=== PATIENT | male | born 1960 | race Caucasian/White ===

== ENCOUNTER 2022-10-21 19:48 | Emergency (ER) | payer OTHER, SELFPAY ==
--- NOTE | 2022-10-21 | ECG_ITS ---
Test Reason : MEDICAL CLEARENCE Blood Pressure : / mmHG Vent. Rate : 090 BPM Atrial Rate : 090 BPM P-R Int : 198 ms QRS Dur : 094 ms QT Int : 354 ms P-R-T Axes : 053 -27 016 degrees QTc Int : 433 ms Normal sinus rhythm Normal ECG No previous ECGs available Referred By: Generic ED Physician Electronically Signed By:Eric Sykes
--- NOTE | ~2022-10-21 | XR_ITS ---
EXAMINATION: XR CHEST CLINICAL INFORMATION: Rib pain. COMPARISON: None available. TECHNIQUE: Frontal view of the chest was obtained. 9:33 PM FINDINGS: No significant abnormality is noted involving the heart, lungs, mediastinum, bony thorax or soft tissues. XR/XR chest 1V IMPRESSION: Unremarkable examination.
[2022-10-21 20:12] VITALS: BP 134/79; BP 160/90; PULSE 90; RESP 16; TEMP 37.7; O2SAT 91; O2SAT 97; BMI 31.3
[2022-10-21 21:05] LABS: MANUAL DIFF FLAG NO
[2022-10-21 21:06] LABS: Basophils Absolute Auto 0.1 X10*3/uL (0.0-0.2); Eosinophils Absolute Auto 0.1 X10*3/uL (0.0-0.4); Eosinophils Percent Auto 0.5 % (0-4); Imm Gran Abs Auto 0.04 X10*3/uL (0.00-0.03); Imm Gran Pct Auto 0.3 % (0.0-0.4); Lymphocytes Absolute Auto 2.8 X10*3/uL (1.2-4.9); Mean Corpuscular HGB Conc 34.7 g/dl (31.0-36.0); Mean Corpuscular Hemoglobin 31.3 pg (27.0-33.0); Mean Corpuscular Volume 90.2 fL (80.0-98.0); Mean Platelet Volume 9.9 fL (9.4-12.4); Monocytes Absolute Auto 0.6 X10*3/uL (0.1-1.2); Monocytes Percent Auto 5.2 % (2-11); Neutrophils Absolute Auto 7.9 x10*3/uL (2.0-8.3); Platelet Count 226 X10*3/uL (160-400); Red Blood Count 5.43 X10*6/uL (4.60-5.80); Red Cell Distribution Width 13.5 % (11.0-16.0); White Blood Count 11.4 X10*3/uL (4.8-10.8)
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
[2022-10-21 21:34] LABS: Ethanol 242 mg/dL
--- NOTE | 2022-10-21 21:36 | PC.NURSE ---
pt c/o of pain with urination, UA obtained
[2022-10-21 21:39] LABS: Alanine Aminotransferase 23 U/L (0-40); Albumin Level 4.5 g/dL (3.5-5.0); Alkaline Phosphatase 61 U/L (39-117); Anion Gap 20 (12-20); Aspartate Amino Transferase 34 U/L (5-37); Bilirubin Total 0.4 mg/dL (0.0-1.0); Blood Urea Nitrogen 9 mg/dL (9-16); Calcium 9.2 mg/dL (8.4-10.2); Carbon Dioxide 19 mmol/L (22-29); Chloride 106 mmol/L (96-108); Creatinine Clr Calc Pharmacy 104.1; Estimated Glomerular Filt Rate > 60; Glucose Random 105 mg/dL (60-115); Potassium 4.1 mmol/L (3.3-5.1); Sodium 141 mmol/L (135-145)
[2022-10-21 21:57] LABS: Appearance Urine Clear; Color Urine Yellow; Glucose Urine UA Negative (Negative); Leukocyte Esterase Urine Negative (Negative); Nitrite Urine Negative (Negative); UMIC TRIGGER UACC YES; Urine Blood Moderate (2+) (Negative); Urine Ketones Negative (Negative); Urine Protein 100 (2+) mg/dL (Neg-Trace)
[2022-10-21 22:10] LABS: Amphetamine Screen Urine Not Detected (Not Detect); Barbiturates, Urine Not Detected (Not Detect); Benzodiazepines Screen Urine Not Detected (Not Detect); Cannabinoid Screen Urine POSITIVE (Not Detect); Cocaine Screen Urine POSITIVE (Not Detect); Fentanyl, urine Not Detected (Not Detect); Opiate Screen Urine Not Detected (Not Detect); Phencyclidine Screen Urine Not Detected (Not Detect)
[2022-10-21 22:31] LABS: Bacteria Urine None Seen (None Seen); Hyaline Casts Urine 0-2 /LPF (0-2); RBC Urine 0-2 /HPF (0-2); Squamous Epithelial Cell Urine 0-2 /HPF (0-2); WBC Urine 0-5 /HPF (0-5)
--- NOTE | 2022-10-21 23:26 | PC.NURSE ---
Received report from off going RN. Pt is a 62 y/o male, calm and cooperative with staff. Arousable with verbal stimuli.
[2022-10-22] MEDS: chlordiazePOXIDE HCl 25 MG CAPSULE 50 MG PO ×3 (02:25→08:24)
--- NOTE | 2022-10-22 03:00 | PC.NURSE ---
At 0200 hours, pt observed sitting upright at edge of bed reporting that he wasn't feeling well, c/o nausea, headache, and tremors, denies auditory or visual hallucinations. Updated CIWA score completed and provider notified. Pt was then given medication. Following medication administration, pt laid down in bed and appears more comfortable now. Will continue to monitor for safety.
--- NOTE | 2022-10-22 04:02 | PC.NURSE ---
Pt is arousable with verbal stimuli and asked to use the bathroom. Pt observed walking with a steady gait to the bathroom and back. Denies any wants or needs at this time. Will continue to monitor. Reports feeling better after medication.
[2022-10-22 06:47] VITALS: BP 157/93; PULSE 103; RESP 18; TEMP 37.6; O2SAT 93
--- NOTE | 2022-10-22 07:48 | PC.NURSE ---
Alert and oriented. Patient stating he would like to go home. Reports that he was very drunk and denies SI/HI. States takes suboxone at home and has not taken it for the last few days. States still has some left sided rib pain but that it is better than last night. Reports takes many meds at home but is unable to recall the names and doses of medications.
--- NOTE | 2022-10-22 08:27 | PC.NURSE ---
Seen by provider, patient to be discharged, care team to set up ride home. Medicated per mar. Patient continues to deny SI/HI
--- NOTE | 2022-10-22 08:49 | PC.NURSE ---
Discharge plan reviewed with patient who verbalized understanding
== END 2022-10-22 08:50 | disposition home or self-care (01) ==
PROVIDERS: Emergency Provider Internal Medicine
DX: R45.851 Suicidal ideations (principal); F10.220 Alcohol dependence with intoxication, uncomplicated; Y90.8 Blood alcohol level of 240 mg/100 ml or more; R07.81 Pleurodynia
CPT/HCPCS: 36415; 71045; 80053; 80307; 81001; 85025; 93005; 99285

== ENCOUNTER → 2022-10-21 21:15 | Outpatient (BNV) | payer OTHER, SELFPAY | PROVIDERS: Emergency Provider Internal Medicine; Visit Provider Internal Medicine Cardiovascular Disease | DX: Z51.81 Encounter for therapeutic drug level monitoring (principal) | CPT/HCPCS: 93010 ==

== ENCOUNTER 2022-11-21 14:04 | Inpatient (IN) | payer OTHER, SELFPAY ==
--- NOTE | ~2022-11-21 | CT_ITS ---
EXAMINATION: CT HEAD WITHOUT CONTRAST (STROKE PROTOCOL) CLINICAL INFORMATION: Stroke protocol. Facial droop COMPARISON: None available. TECHNIQUE: Contiguous axial imaging was performed from the skull base to vertex without intravenous administration of contrast. This CT examination was performed using dose optimization techniques as appropriate, variously including the following: *Automated exposure control *Adjustment of mA and/or kV according to patient size (this includes techniques or standardized protocols for targeted exams where dose is matched to indication/reason for exam; i.e. extremities or head) *Use of iterative reconstruction technique DLP: 751 mGy-cm FINDINGS: The ventricles and sulci are normal in size and configuration. No acute hemorrhage, mass effect or shift is evident. Miranda-white differentiation is preserved. In the posterior fossa the brainstem, cerebellum and fourth ventricle are unremarkable. The orbits, calvarium, paranasal sinuses and mastoid air cells image normally. CT/CT head for stroke IMPRESSION: No acute hemorrhage, mass effect or shift. No acute intracranial pathology. This critical result was discussed with Tala Figueroa at 12:26 PM hours on 11/22/2022. It was ascertained that the content and urgency of the report was understood at the time of direct communication.
--- NOTE | 2022-11-21 15:01 | ED_ITS ---
HPI - General Adult General Chief complaint: ETOH/Substance Use Stated complaint: detox Time Seen by Provider: 11/21/22 15:21 Source: patient and family (Sister) Mode of arrival: ambulatory History of Present Illness HPI narrative: 62-year-old male who presents, [facility], and [facility] detox, reports that he drinks a 5th of liquor a day, last drink was approximately an hour prior to arrival and he reports suicidal ideation and states he does have a history of prior attempts. He also endorses that he has a history of severe alcohol withdrawal with seizures. The sister who is at bedside said that the [facility] would not accept him for detox due to his CPAP machine. Related Data Allergies Allergy/AdvReac Type Severity Reaction Status Date / Time No Known Allergies Allergy Verified 11/21/22 15:02 Review of Systems Review of Systems: Pertinent positives and negatives as stated in HPI [facility] Past Medical History Source: nursing notes reviewed Social History Social History Alcohol intake: current Alcohol intake frequency: 3 or more drinks per day Alcohol type: hard liquor Smoked in Last 30 Days: No Use of substances other than those prescribed or required for medical reasons: No Substance Use Type: Opiates Advance Directives: No Advance Directives Information Provided: No Physical Exam ED Vital Signs: Vital Signs - 24 hr 11/21/22 15:03 Temperature 97.1 F Pulse Rate 87 Respiratory Rate 16 Blood Pressure 128/89 Pulse Oximetry 92 Oxygen Delivery Method Room Air BMI result Body Mass Index 33.7 VITAL SIGNS: Reviewed. GENERAL: Well developed, well nourished, in no acute distress. HEAD: Normocephalic/atraumatic EYES: PERRLA, EOMI EARS: Ext canals without abnormality NOSE: Nares patent bilateral OROPHARYNX: no oral lesions noted, posterior pharynx clear NECK: Supple, no adenopathy LUNGS: Normal breath sounds. No adventitious sounds or accessory muscle use. SpO2<92> CARDIOVASCULAR: Regular rate and rhythm without noted murmurs, no JVD or lower extremity edema. ABDOMEN: Soft, non-tender, non-distended with bowel sounds. MUSCULOSKELETAL: No tenderness, deformities, or effusions noted on gross inspection. EXTREMITIES: No cyanosis, clubbing or edema. SKIN: Inspection of the skin reveals no rashes NEUROLOGIC: Alert and oriented x 4. Strength and sensation to light touch were grossly intact x 4, cranial nerves 2-12 are grossly intact. Course Course Course Narrative: This is a rapid medical exam. Deferred additional HPI ROS, PE to primary provider. 62 yo male with history of PTSD, depression, anxiety, DM, HTN here seeking detox for alcohol, drinks daily, drinks 1/5 of bourbon per day Last drink 30 minutes NO additional substance use. +SI in triage, no plan. Will obtain labs, MORGAN, EKG, COVID screen VSS Medications Administered Discontinued Medications Generic Name Dose Route Start Last Admin Trade Name Freq PRN Reason Stop Dose Admin Chlordiazepoxide HCl 25 mg 11/21/22 16:41 11/21/22 16:45 Chlordiazepoxide Hcl 25 Mg Capsule PO 11/21/22 16:42 25 mg ONCE ONE Administration Phenobarbital Sodium 350.4 mg 11/21/22 17:00 11/21/22 17:20 Phenobarbital Sodium 130 Mg/Ml Im Once IM 11/21/22 17:01 350.4 mg ONCE ONE Administration Protocol Medical Decision Making Medical Decision Making [facility] Narrative: 62-year-old male with history and clinical presentation, DDX: Alcohol abuse, prior suicide attempt history, severe alcohol withdrawal symptoms in his history. Will obtain lab work, EKG and toxicology for clearance, but suspect that patient may need to be admitted for alcohol withdrawal. I reviewed all investigations and there is no leukocytosis or left shift, no anemia or thrombocytopenia. Chemistry indices are grossly within normal limits as there is no JOSELITO, electrolyte or liver enzyme abnormalities. Toxicology demonstrates undetectable salicylate/acetaminophen and alcohol level -249. COVID-19 negative. Patient has been started on a phenobarb protocol but initially received 25 mg of Librium. Patient is on a one-to-one and is under Section 12. 1907: I discussed case with inpatient hospitalist who accepts admission. Differential Diagnosis Differential Diagnoses: The differential diagnosis associated with the presentation includes Please see the discussion above Admission/Observation Consideration of admission/observation: Escalation of care including admissio n/observation considered Please see the discussion above Consult Healthcare Provider Management of the patient was discussed with: Hospitalist Please see the discussion above Lab Data [facility] Lab Attestation statement: I reviewed the patient's lab results. Please see the discussion above 11/21/22 15:59 11/21/22 15:59 Labs: Lab Results 11/21/22 11/21/22 11/21/22 Range/Units 15:59 15:59 15:59 WBC 6.7 (4.8-10.8) X10*3/uL RBC 4.54 L (4.60-5.80) X10*6/uL Hgb 14.1 (14.0-18.0) g/dl Hct 41.6 L (42.0-52.0) % MCV 91.6 (80.0-98.0) fL MCH 31.1 (27.0-33.0) pg MCHC 33.9 (31.0-36.0) g/dl RDW 13.6 (11.0-16.0) % Plt Count 162 D (160-400) X10*3/uL MPV 10.9 (9.4-12.4) fL Immature Gran % (Auto) 0.1 (0.0-0.4) % Neut % (Auto) 39.0 L (45-73) % Lymph % (Auto) 47.5 H (20-40) % [place] % (Auto) 9.3 (2-11) % Eos % (Auto) 2.8 (0-4) % Baso % (Auto) 1.3 (0-2) % Lymph # (Auto) 3.2 (1.2-4.9) X10*3/uL [place] # (Auto) 0.6 (0.1-1.2) X10*3/uL Eos # (Auto) 0.2 (0.0-0.4) X10*3/uL Baso # (Auto) 0.1 (0.0-0.2) X10*3/uL Abs Immat Gran (auto) 0.01 (0.00-0.03) X10*3/uL Absolute Neuts (auto) 2.6 (2.0-8.3) x10*3/uL Absolute Nucleated RBC 0.000 (0.0-0.012) X10*3/uL Nucleated RBC % (auto) 0.0 (0.0-0.2) /100WBC Sodium 145 (135-145) mmol/L Potassium 4.3 (3.3-5.1) mmol/L Chloride 104 (96-108) mmol/L Carbon Dioxide 30 H (22-29) mmol/L Anion Gap 15 (12-20) BUN 11 (9-16) mg/dL Creatinine 0.80 (0.5-1.4) mg/dL Estim Creat Clear Calc 114.1 Estimated GFR > 60 Random Glucose 106 (60-115) mg/dL Calcium 9.1 (8.4-10.2) mg/dL Magnesium 1.6 (1.6-2.6) mg/dL Total Bilirubin 0.3 (0.0-1.0) mg/dL Direct Bilirubin 0.1 (0.0-0.5) mg/dL AST 40 H (5-37) U/L ALT 34 (0-40) U/L Alkaline Phosphatase 82 (39-117) U/L Total Protein 6.7 (6.5-8.0) g/dL Albumin 3.9 (3.5-5.0) g/dL Urine Color Urine Appearance Urine pH (5.0-9.0) Ur Specific [place] (1.005-1.025) Urine Protein (Neg-Trace) mg/dL Urine Glucose (UA) (Negative) mg/dL Urine Ketones (Negative) mg/dL Urine Blood (Negative) Urine Nitrite (Negative) Ur Leukocyte Esterase (Negative) Salicylates (15-30) mg/dL Urine Opiates Screen (Not Detect) Urine Fentanyl Screen (Not Detect) Acetaminophen (<30) mcg/mL Ur Barbiturates Screen (Not Detect) Ur Phencyclidine Scrn (Not Detect) Ur Amphetamines Screen (Not Detect) U Benzodiazepines Scrn (Not Detect) Urine Cocaine Screen (Not Detect) U Marijuana (THC) Screen (Not Detect) Ethyl Alcohol mg/dL COVID-19 (WILLIAM) Negative (Negative) COVID-19 Clin Com See Note 11/21/22 11/21/22 11/21/22 Range/Units 15:59 15:59 17:27 WBC (4.8-10.8) X10*3/uL RBC (4.60-5.80) X10*6/uL Hgb (14.0-18.0) g/dl Hct (42.0-52.0) % MCV (80.0-98.0) fL MCH (27.0-33.0) pg MCHC (31.0-36.0) g/dl RDW (11.0-16.0) % Plt Count (160-400) X10*3/uL MPV (9.4-12.4) fL Immature Gran % (Auto) (0.0-0.4) % Neut % (Auto) (45-73) % Lymph % (Auto) (20-40) % [place] % (Auto) (2-11) % Eos % (Auto) (0-4) % Baso % (Auto) (0-2) % Lymph # (Auto) (1.2-4.9) X10*3/uL [place] # (Auto) (0.1-1.2) X10*3/uL Eos # (Auto) (0.0-0.4) X10*3/uL Baso # (Auto) (0.0-0.2) X10*3/uL Abs Immat Gran (auto) (0.00-0.03) X10*3/uL Absolute Neuts (auto) (2.0-8.3) x10*3/uL Absolute Nucleated RBC (0.0-0.012) X10*3/uL Nucleated RBC % (auto) (0.0-0.2) /100WBC Sodium (135-145) mmol/L Potassium (3.3-5.1) mmol/L Chloride (96-108) mmol/L Carbon Dioxide (22-29) mmol/L Anion Gap (12-20) BUN (9-16) mg/dL Creatinine (0.5-1.4) mg/dL Estim Creat Clear Calc Estimated GFR Random Glucose (60-115) mg/dL Calcium (8.4-10.2) mg/dL Magnesium (1.6-2.6) mg/dL Total Bilirubin (0.0-1.0) mg/dL Direct Bilirubin (0.0-0.5) mg/dL AST (5-37) U/L ALT (0-40) U/L Alkaline Phosphatase (39-117) U/L Total Protein (6.5-8.0) g/dL Albumin (3.5-5.0) g/dL Urine Color Yellow Urine Appearance Clear Urine pH 6.5 (5.0-9.0) Ur Specific [place] 1.010 (1.005-1.025) Urine Protein Trace (Neg-Trace) mg/dL Urine Glucose (UA) Negative (Negative) mg/dL Urine Ketones Negative (Negative) mg/dL Urine Blood Negative (Negative) Urine Nitrite Negative (Negative) Ur Leukocyte Esterase Negative (Negative) Salicylates < 5.0 L (15-30) mg/dL Urine Opiates Screen (Not Detect) Urine Fentanyl Screen (Not Detect) Acetaminophen < 17 (<30) mcg/mL Ur Barbiturates Screen (Not Detect) Ur Phencyclidine Scrn (Not Detect) Ur Amphetamines Screen (Not Detect) U Benzodiazepines Scrn (Not Detect) Urine Cocaine Screen (Not Detect) U Marijuana (THC) Screen (Not Detect) Ethyl Alcohol 249 mg/dL COVID-19 (WILLIAM) (Negative) COVID-19 Clin Com 11/21/22 Range/Units 17:27 WBC (4.8-10.8) X10*3/uL RBC (4.60-5.80) X10*6/uL Hgb (14.0-18.0) g/dl Hct (42.0-52.0) % MCV (80.0-98.0) fL MCH (27.0-33.0) pg MCHC (31.0-36.0) g/dl RDW (11.0-16.0) % Plt Count (160-400) X10*3/uL MPV (9.4-12.4) fL Immature Gran % (Auto) (0.0-0.4) % Neut % (Auto) (45-73) % Lymph % (Auto) (20-40) % [place] % (Auto) (2-11) % Eos % (Auto) (0-4) % Baso % (Auto) (0-2) % Lymph # (Auto) (1.2-4.9) X10*3/uL [place] # (Auto) (0.1-1.2) X10*3/uL Eos # (Auto) (0.0-0.4) X10*3/uL Baso # (Auto) (0.0-0.2) X10*3/uL Abs Immat Gran (auto) (0.00-0.03) X10*3/uL Absolute Neuts (auto) (2.0-8.3) x10*3/uL Absolute Nucleated RBC (0.0-0.012) X10*3/uL Nucleated RBC % (auto) (0.0-0.2) /100WBC Sodium (135-145) mmol/L Potassium (3.3-5.1) mmol/L Chloride (96-108) mmol/L Carbon Dioxide (22-29) mmol/L Anion Gap (12-20) BUN (9-16) mg/dL Creatinine (0.5-1.4) mg/dL Estim Creat Clear Calc Estimated GFR Random Glucose (60-115) mg/dL Calcium (8.4-10.2) mg/dL Magnesium (1.6-2.6) mg/dL Total Bilirubin (0.0-1.0) mg/dL Direct Bilirubin (0.0-0.5) mg/dL AST (5-37) U/L ALT (0-40) U/L Alkaline Phosphatase (39-117) U/L Total Protein (6.5-8.0) g/dL Albumin (3.5-5.0) g/dL Urine Color Urine Appearance Urine pH (5.0-9.0) Ur Specific [place] (1.005-1.025) Urine Protein (Neg-Trace) mg/dL Urine Glucose (UA) (Negative) mg/dL Urine Ketones (Negative) mg/dL Urine Blood (Negative) Urine Nitrite (Negative) Ur Leukocyte Esterase (Negative) Salicylates (15-30) mg/dL Urine Opiates Screen Not Detected (Not Detect) Urine Fentanyl Screen Not Detected (Not Detect) Acetaminophen (<30) mcg/mL Ur Barbiturates Screen Not Detected (Not Detect) Ur Phencyclidine Scrn Not Detected (Not Detect) Ur Amphetamines Screen Not Detected (Not Detect) U Benzodiazepines Scrn Not Detected (Not Detect) Urine Cocaine Screen Not Detected (Not Detect) U Marijuana (THC) Screen POSITIVE H (Not Detect) Ethyl Alcohol mg/dL COVID-19 (WILLIAM) (Negative) COVID-19 Clin Com Independent Interpretation I performed an independent interpretation of an: EKG Interpretation: Normal sinus rhythm, HR-77, no STEMI, KS/QRS/QTC is within normal limits. External Record Review External record reviewed: Office record, Outpatient record, Prior outpatient labs and Prior outpatient radiology Chronic Conditions Patient?s care impacted by: Diabetes and Hypertension Critical Care Time Critical Care Time Critical Care Time: Yes Total Critical Care Time: 30 Attestation: I personally attest to this time spent taking care of the patient. Discharge Plan Discharge Clinical Impression: Alcoholic intoxication, Alcohol abuse, Alcohol withdrawal, Suicidal ideation Patient Disposition: Admitted As Inpatient
[2022-11-21 15:03] VITALS: BP 128/89; PULSE 87; RESP 16; TEMP 36.2; O2SAT 92; BMI 33.7
--- NOTE | 2022-11-21 15:05 | ECG_ITS ---
Test Reason : DETOX Blood Pressure : / mmHG Vent. Rate : 077 BPM Atrial Rate : 077 BPM P-R Int : 180 ms QRS Dur : 100 ms QT Int : 380 ms P-R-T Axes : 050 -22 021 degrees QTc Int : 430 ms Normal sinus rhythm Normal ECG When compared with ECG of 21-OCT-2022 21:15, No significant change was found Referred By: Karla Huang Electronically Signed By:JANN HAMPTON
[2022-11-21 16:09] LABS: MANUAL DIFF FLAG NO
[2022-11-21 16:12] LABS: Basophils Absolute Auto 0.1 X10*3/uL (0.0-0.2); Basophils Percent Auto 1.3 % (0-2); Eosinophils Absolute Auto 0.2 X10*3/uL (0.0-0.4); Eosinophils Percent Auto 2.8 % (0-4); Hematocrit 41.6 % (42.0-52.0); Hemoglobin 14.1 g/dl (14.0-18.0); Imm Gran Abs Auto 0.01 X10*3/uL (0.00-0.03); Imm Gran Pct Auto 0.1 % (0.0-0.4); Lymphocytes Absolute Auto 3.2 X10*3/uL (1.2-4.9); Lymphocytes Percent Auto 47.5 % (20-40); Mean Corpuscular HGB Conc 33.9 g/dl (31.0-36.0); Mean Corpuscular Hemoglobin 31.1 pg (27.0-33.0); Mean Corpuscular Volume 91.6 fL (80.0-98.0); Mean Platelet Volume 10.9 fL (9.4-12.4); Monocytes Absolute Auto 0.6 X10*3/uL (0.1-1.2); Monocytes Percent Auto 9.3 % (2-11); Neutrophils Absolute Auto 2.6 x10*3/uL (2.0-8.3); Platelet Count 162 X10*3/uL (160-400); Red Blood Count 4.54 X10*6/uL (4.60-5.80); Red Cell Distribution Width 13.6 % (11.0-16.0); White Blood Count 6.7 X10*3/uL (4.8-10.8)
[2022-11-21 16:31] LABS: COVID-19 Test Negative (Negative); IDNOW Serial# BCCEAD1C
[2022-11-21 16:45] LABS: Ethanol 249 mg/dL
[2022-11-21] MEDS: chlordiazePOXIDE HCl 25 MG CAPSULE PO (16:45)
[2022-11-21 16:47] LABS: Acetaminophen LAB < 17 mcg/mL (<30); Alanine Aminotransferase 34 U/L (0-40); Albumin Level 3.9 g/dL (3.5-5.0); Alkaline Phosphatase 82 U/L (39-117); Anion Gap 15 (12-20); Aspartate Amino Transferase 40 U/L (5-37); Bilirubin Direct 0.1 mg/dL (0.0-0.5); Bilirubin Total 0.3 mg/dL (0.0-1.0); Blood Urea Nitrogen 11 mg/dL (9-16); Calcium 9.1 mg/dL (8.4-10.2); Carbon Dioxide 30 mmol/L (22-29); Chloride 104 mmol/L (96-108); Creatinine Clr Calc Pharmacy 114.1; Estimated Glomerular Filt Rate > 60; Glucose Random 106 mg/dL (60-115); Magnesium 1.6 mg/dL (1.6-2.6); Potassium 4.3 mmol/L (3.3-5.1); Salicylate < 5.0 mg/dL (15-30); Sodium 145 mmol/L (135-145); Total Protein 6.7 g/dL (6.5-8.0)
[2022-11-21] MEDS: PHENobarbitaL sodium 130 MG/ML IM ONCE 350.4 MG IM (17:20)
[2022-11-21 17:34] LABS: Appearance Urine Clear; Color Urine Yellow; Glucose Urine UA Negative (Negative); Leukocyte Esterase Urine Negative (Negative); Nitrite Urine Negative (Negative); PH 6.5 (5.0-9.0); Urine Blood Negative (Negative); Urine Ketones Negative (Negative); Urine Protein Trace mg/dL (Neg-Trace)
[2022-11-21 17:46] LABS: Amphetamine Screen Urine Not Detected (Not Detect); Barbiturates, Urine Not Detected (Not Detect); Benzodiazepines Screen Urine Not Detected (Not Detect); Cannabinoid Screen Urine POSITIVE (Not Detect); Cocaine Screen Urine Not Detected (Not Detect); Fentanyl, urine Not Detected (Not Detect); Opiate Screen Urine Not Detected (Not Detect); Phencyclidine Screen Urine Not Detected (Not Detect)
--- NOTE | 2022-11-21 20:02 | P.HPHOSP_ITS ---
History of Present Illness Date of Service: 11/21/22 Chief Complaint: Alcohol withdrawal 62-year-old male past medical history of hypertension, diabetes, hyperlipidemia, history of opioid use disorder on Suboxone, depression anxiety, comes into the hospital with complaints of withdrawals from alcohol. Patient re ports that he drinks 5th of bourbon daily, and is interested in detoxing, he stop drinking right before coming to the hospital, but is already withdrawing. Has history of severe withdrawals including seizures. Denies any chest pain, no shortness of breath, no abdominal pain nausea vomiting, no diarrhea constipation, no urinary symptoms and no lower extremity edema. On arrival to the ED patient was already noted to be withdrawn, patient started on phenobarb protocol and will be admitted for further management patient did endorse suicidal ideation to the ED physician, but is now feeling more calm, and states that he has no intention or plan to hurt himself or others On arrival to the ED hemodynamically stable Labs reviewed, unremarkable, positive for marijuana patient will be admitted for further management Review of Systems Review of Systems: Yes all other systems are reviewed and are negative [facility] Medical History (Updated 11/21/22 @ 23:51 by Puja Keita MD) Depression with anxiety Diabetes Hyperlipidemia Hypertension Social History Alcohol intake: current Alcohol intake frequency: 3 or more drinks per day Alcohol type: hard liquor Patient Tobacco Use Status: Former Tobacco user Smoked in Last 30 Days: No Use of substances other than those prescribed or required for medical reasons: No Substance Use Type: Opiates Advance Directives: No Advance Directives Information Provided: No Meds Allergies Allergy/AdvReac Type Severity Reaction Status Date / Time No Known Allergies Allergy Verified 11/21/22 15:02 Active Medications: Current Medications Acetaminophen (Acetaminophen 325 Mg Tablet) 650 mg PO Q6H PRN PRN Reason: Pain, Mild (Pain Scale 1-3) Docusate Sodium (Docusate Sodium 100 Mg Capsule) 100 mg PO DAILY PRN PRN Reason: Constipation Folic Acid (Folic Acid 1 Mg Tablet) 1 mg PO DAILY ANA Ondansetron HCl (Ondansetron Hcl 4 Mg/2 Ml Vial) 4 mg IVPUSH Q8H PRN PRN Reason: Nausea and Vomiting Pharmacy Consult (Consult Rx Etoh Phenob Im/Po) 1 each MISCELLANE ONCE PRN; Protocol PRN Reason: Consult order Phenobarbital (Phenobarbital 15 Mg Tablet) 45 mg PO BID [facility]; Protocol Stop: 11/23/22 21:01 Phenobarbital (Phenobarbital 30 Mg Tablet) 30 mg PO BID [facility]; Protocol Stop: 11/25/22 21:01 Phenobarbital (Phenobarbital 15 Mg Tablet) 15 mg PO DAILY [facility]; Protocol Stop: 11/27/22 09:01 Phenobarbital Sodium (Phenobarbital Sodium 130 Mg/Ml Vial Im Q3hx2) 262.8 mg IM Q3H ANA; Protocol Stop: 11/21/22 23:01 Sodium Chloride (0.9 % Sodium Chloride Flush 3 Ml Syringe) [facility] Thiamine HCl (Thiamine Hcl 100 Mg Tablet) 100 mg PO DAILY [facility] Home Medications Medication Instructions Recorded Confirmed Last Taken Type acyclovir 400 mg tablet 400 mg PO BID 11/21/22 11/21/22 11/21/22 History atorvastatin 20 mg tablet 10 mg PO BEDTIME 11/21/22 11/21/22 11/20/22 History buprenorphine 2 mg-naloxone 0.5 mg 1 film buccal DAILY 11/21/22 11/21/22 11/21/22 History sublingual film (Suboxone) buprenorphine 8 mg-naloxone 2 mg 2 film buccal DAILY 11/21/22 11/21/22 11/21/22 History sublingual film (Suboxone) buspirone 5 mg tablet 5 mg PO BID 11/21/22 11/21/22 11/21/22 History duloxetine 60 mg capsule,delayed 60 mg PO DAILY 11/21/22 11/21/22 11/21/22 H istory release sprinkle finasteride 5 mg tablet 5 mg PO DAILY 11/21/22 11/21/22 11/21/22 History gabapentin 400 mg capsule 1,200 mg PO TID 11/21/22 11/21/22 11/21/22 History hydroxyzine HCl 25 mg tablet 25 mg PO BEDTIME 11/21/22 11/21/22 11/21/22 History lisinopril 2.5 mg tablet 2.5 mg PO DAILY 11/21/22 11/21/22 11/21/22 History melatonin 5 mg tablet 10 mg PO BEDTIME 11/21/22 11/21/22 11/20/22 History metformin 1,000 mg tablet 1,000 mg PO DAILY 11/21/22 11/21/22 11/21/22 History metoprolol succinate 25 mg capsule 25 mg PO BEDTIME 11/21/22 11/21/22 11/20/22 History sprinkle, ext. release 24 hr multivitamin 1 tab PO DAILY 11/21/22 11/21/22 11/21/22 History polyethylene glycol 3350 17 17 g PO DAILY 11/21/22 11/21/22 11/21/22 History gram/dose oral powder (Miralax) sennosides 8.6 mg-docusate sodium 2 tab-cap PO BEDTIME 11/21/22 11/21/22 11/20/22 History 50 mg tablet tamsulosin 0.4 mg capsule 0.4 mg PO BID 11/21/22 11/21/22 11/21/22 History trazodone 100 mg tablet 300 mg PO BEDTIME 11/21/22 11/21/22 11/20/22 History Physical Exam Vital Signs and Narrative: Vital Signs: Last Vital Signs Temp 97.1 F 11/21/22 15:03 Pulse 87 11/21/22 15:03 Resp 16 11/21/22 15:03 BP 128/89 11/21/22 15:03 Pulse Ox 92 11/21/22 15:03 O2 Del Method Room Air 11/21/22 15:03 BMI result Body Mass Index 33.7 Const: Other: appears anxious, jittery, nervous appearing General: cooperative and no acute distress Orientation/consciousness: susan ent oriented x3 Eyes: General: appearance normal, both eyes and all related structures Resp: Effort & Inspection: normal respiratory effort Auscultation: clear to auscultation bilaterally Cardio: Rate: regular rate Rhythm: regular rhythm GI: Palpation (GI): Soft to palpation Auscultation: normal bowel sounds Skin: General skin exam: no rashes or lesions noted Neuro: Other: asterixis present no neurological deficit General: patient oriented x3 Cognition (Neuro): normal cognition Extrem: General: Yes normal to inspection and Yes no pedal edema Results Labs 11/21/22 15:59 11/21/22 15:59 Labs: Laboratory Results - last 24 hr 11/21/22 11/21/22 11/21/22 15:59 15:59 15:59 MCV 91.6 MCH 31.1 MCHC 33.9 RDW 13.6 Plt Count 162 D MPV 10.9 Immature Gran % (Auto) 0.1 Neut % (Auto) 39.0 L Lymph % (Auto) 47.5 H Lares % (Auto) 9.3 Eos % (Auto) 2.8 Baso % (Auto) 1.3 Lymph # (Auto) 3.2 Lares # (Auto) 0.6 Eos # (Auto) 0.2 Baso # (Auto) 0.1 Abs Immat Gran (auto) 0.01 Absolute Neuts (auto) 2.6 Absolute Nucleated RBC 0.000 Nucleated RBC % (auto) 0.0 Anion Gap 15 Estim Creat Clear Calc 114.1 Estimated GFR > 60 Random Glucose 106 Calcium 9.1 Magnesium 1.6 Total Bilirubin 0.3 Direct Bilirubin 0.1 AST 40 H ALT 34 Alkaline Phosphatase 82 Total Protein 6.7 Albumin 3.9 Urine Color Urine Appearance Urine pH Ur Specific [place] Urine Protein Urine Glucose (UA) Urine Ketones Urine Blood Urine Nitrite Ur Leukocyte Esterase Salicylates Urine Opiates Screen Urine Fentanyl Screen Acetaminophen Ur Barbiturates Screen Ur Phencyclidine Scrn Ur Amphetamines Screen U Benzodiazepines Scrn Urine Cocaine Screen U Marijuana (THC) Screen Ethyl Alcohol COVID-19 ([facility]) Negative COVID-19 Clin Com See Note 11/21/22 11/21/22 11/21/22 15:59 15:59 17:27 MCV MCH MCHC RDW Plt Count MPV Immature Gran % (Auto) Neut % (Auto) Lymph % (Auto) Lares % (Auto) Eos % (Auto) Baso % (Auto) Lymph # (Auto) Lares # (Auto) Eos # (Auto) Baso # (Auto) Abs Immat Gran (auto) Absolute Neuts (auto) Absolute Nucleated RBC Nucleated RBC % (auto) Anion Gap Estim Creat Clear Calc Estimated GFR Random Glucose Calcium Magnesium Total Bilirubin Direct Bilirubin AST ALT Alkaline Phosphatase Total Protein Albumin Urine Color Yellow Urine Appearance Clear Urine pH 6.5 Ur Specific [place] 1.010 Urine Protein Trace Urine Glucose (UA) Negative Urine Ketones Negative Urine Blood Negative Urine Nitrite Negative Ur Leukocyte Esterase Negative Salicylates < 5.0 L Urine Opiates Screen Urine Fentanyl Screen Acetaminophen < 17 Ur Barbiturates Screen Ur Phencyclidine Scrn Ur Amphetamines Screen U Benzodiazepines Scrn Urine Cocaine Screen U Marijuana (THC) Screen Ethyl Alcohol 249 COVID-19 ([facility]) COVID-19 Clin Com 11/21/22 17:27 MCV MCH MCHC RDW Plt Count MPV Immature Gran % (Auto) Neut % (Auto) Lymph % (Auto) Lares % (Auto) Eos % (Auto) Baso % (Auto) Lymph # (Auto) Lares # (Auto) Eos # (Auto) Baso # (Auto) Abs Immat Gran (auto) Absolute Neuts (auto) Absolute Nucleated RBC Nucleated RBC % (auto) Anion Gap Estim Creat Clear Calc Estimated GFR Random Glucose Calcium Magnesium Total Bilirubin Direct Bilirubin AST ALT Alkaline Phosphatase Total Protein Albumin Urine Color Urine Appearance Urine pH Ur Specific [place] Urine Protein Urine Glucose (UA) Urine Ketones Urine Blood Urine Nitrite Ur Leukocyte Esterase Salicylates Urine Opiates Screen Not Detected Urine Fentanyl Screen Not Detected Acetaminophen Ur Barbiturates Screen Not Detected Ur Phencyclidine Scrn Not Detected Ur Amphetamines Screen Not Detected U Benzodiazepines Scrn Not Detected Urine Cocaine Screen Not Detected U Marijuana (THC) Screen POSITIVE H Ethyl Alcohol COVID-19 ([facility]) COVID-19 Clin Com Assessment and Plan (1) Suicidal ideation: Status: Acute (2) Alcohol abuse with withdrawal: Status: Acute Plan 62-year-old male past medical history of alcohol abuse comes into the hospital for detox found to be in alcohol withdrawal # alcohol abuse with acute alcohol withdrawal - patient start on phenobarb protocol in the ED - will place on thiamine and folic acid - monitor CIWA - consult made to addiction medicine # suicidal ideation - endorsed self-harm - reports feeling significantly more depressed - patient has 1 and 1 - care team consulted # hypertension - stable -continue antihypertensives # Diabetes - hold oral antihyperglycemics - low-dose sliding scale insulin # depression anxiety - continue mood stabilizers DVT prophylaxis: Early ambulation Given patient's need for management of alcohol withdrawals patient will require minimum 2 nights inpatient hospital stay for further management and monitor Time Spent With Patient Time: Total time managing care of this patient today ____ minutes. Quality Stroke Does the patient have a stroke diagnosis?: No VTE Prior VTE?: No VTE Risk Level:: Medical - low VTE Device Contraindication: Treatment Not Indicated VTE Drug Contraindication: Treatment Not Indicated
[2022-11-21 20:30] VITALS: BP 120/72; PULSE 80; RESP 11; O2SAT 92
[2022-11-21] MEDS: PHENobarbitaL sodium 130 MG/ML VIAL IM Q3Hx2 262.8 MG IM ×2 (20:49→23:29)
[2022-11-21] MEDS: Thiamine HCL 100 MG TABLET PO (20:50)
[2022-11-21] MEDS: Folic Acid 1 MG TABLET PO (20:50)
--- NOTE | 2022-11-21 20:54 | PHA.MEDREC ---
Pharmacy Consult ? Medication Reconciliation Pharmacy has completed the medication reconciliation. Received list from [place]. Ruy confirmed medications [facility] Patient report 16 mg of suboxone total. Nova Rodriguez, PharmD
[2022-11-21] MEDS: PHENobarbitaL sodium 130 MG/ML VIAL IM (22:19)
--- NOTE | 2022-11-21 23:37 | PC.NURSE ---
Due to staffing, sitter is unavailable as of 2299. Pt denies SI/HI at this time, stating sincerely, you know, I'm not going to hurt myself, I don't want to do any of that. Pt was moved to 22 across from charge nurse with curtain open. Pt was given a towel to cover his eyes/ears, as he is having sensitivity to light and sound due to withdrawals. Pt is now resting quietly in bed, waiting for a bed assignment.
[2022-11-22] VITALS (11 sets, daily range): BP systolic 131–174; BP diastolic 74–98; PULSE 82–102; RESP 11–20; TEMP 36.4–37.1; O2SAT 1–96; BMI 34.3
[2022-11-22] MEDS: Sennosides/Docusate Sodium TABLET 2 TAB PO ×2 (00:15→19:58)
[2022-11-22] MEDS: Metoprolol Succinate ER 25 MG TAB.ER.24H PO ×2 (00:15→19:58)
[2022-11-22] MEDS: Atorvastatin Calcium 10 MG TABLET PO ×2 (00:15→19:59)
[2022-11-22] MEDS: Gabapentin 400 MG CAPSULE 1200 MG PO ×4 (00:15→19:57)
[2022-11-22] MEDS: traZODone HCL 100 MG TABLET 300 MG PO ×2 (00:15→19:58)
[2022-11-22] MEDS: Tamsulosin HCL 0.4 MG CAPSULE PO ×3 (00:15→19:59)
[2022-11-22] MEDS: busPIRone HCl 5 MG TABLET PO ×3 (00:15→19:59)
[2022-11-22] MEDS: hydrOXYzine HCL 25 MG TABLET PO ×2 (00:15→19:58)
[2022-11-22 06:56] LABS: Glucose, Whole Blood 113 mg/dL (60-115)
[2022-11-22] MEDS: PHENobarbitaL 15 MG TABLET 45 MG PO ×2 (10:45→19:59)
[2022-11-22] MEDS: Multivitamin TABLET 1 TAB PO (10:46)
[2022-11-22] MEDS: lisinopriL 2.5 MG TABLET PO (10:46)
[2022-11-22] MEDS: Folic Acid 1 MG TABLET PO (10:46)
[2022-11-22] MEDS: DULoxetine HCl 60 MG CAPSULE.DR PO (10:46)
[2022-11-22] MEDS: Thiamine HCL 100 MG TABLET PO (10:47)
[2022-11-22] MEDS: Finasteride 5 MG TABLET PO (10:47)
[2022-11-22] MEDS: Acyclovir 200 MG CAPSULE 400 MG PO ×2 (10:47→19:58)
[2022-11-22] MEDS: Buprenorphine/Naloxone 2/0.5mg FILM 1 FILM SUBLINGUAL (10:48)
[2022-11-22] MEDS: Buprenorphine/Naloxone 8/2 mg FILM 2 FILM BUCCAL (10:48)
[2022-11-22] MEDS: polyethylene glycoL 3350 17 GM POWD.PACK PO (10:53)
--- NOTE | 2022-11-22 11:20 | MHC.RECOVRN ---
T/w in to meet with pt to discuss his goals for recovery. Pt appears to be a poor historian, losing the thread of conversation and almost seeming to fall asleep after being asked a question. Pt able to report that his ETOH use has increased over the past few weeks and he has been drinking a qt of hard alcolhol daily. Pt appears mildly diaphoretic and tachy on the monitor. Pt denying any complaints at this time. Pt informed that the recovery team will be following him throughout his stay and to reach out with any questions. Pt verbalized understanding, denying questions or concerns at this time. Pt's primary nurse noted to enter room to provide pt with sched medications. Plan to follow up.
--- NOTE | 2022-11-22 11:35 | MHC.CM.PN ---
PT REPORTS HE LIVES ALONE AND IS INDEPENDENT WITH CARE PT DENIES USE OF DME OR HOME SERVICES PT DECLINES TO COMPLETE A HCP PCP AT [facility] [place] CM WILL OBTAIN NAME [facility] CASTRO PENDING CRISIS EVAL, PT PRESENTED WITH SI. IF CLEARED, PT CAN DC HOME HE WOULD NEED TRANSPORT ARRANGED
--- NOTE | 2022-11-22 11:45 | PC.NURSE ---
IT WAS NOTED THAT PT HAD L SIDE FACIAL DROOP. ALL OTHER NEURO'S ARE INTACT. HOSP PA-C INFORMED.
--- NOTE | 2022-11-22 12:19 | PC.NURSE ---
PT RETURNED FROM CT SCAN VIA STRETCHER.
--- NOTE | 2022-11-22 12:28 | PC.NURSE ---
DR. CARRION AT BEDSIDE PT AWARE OF PLAN OF CARE.
[2022-11-22 12:42] LABS: MANUAL DIFF FLAG NO
[2022-11-22 12:45] LABS: Glucose, Whole Blood 118 mg/dL (60-115)
[2022-11-22 12:55] LABS: Basophils Absolute Auto 0.1 X10*3/uL (0.0-0.2); Basophils Percent Auto 1.1 % (0-2); Eosinophils Absolute Auto 0.1 X10*3/uL (0.0-0.4); Eosinophils Percent Auto 1.3 % (0-4); Hematocrit 41.3 % (42.0-52.0); Hemoglobin 13.8 g/dl (14.0-18.0); Imm Gran Abs Auto 0.03 X10*3/uL (0.00-0.03); Imm Gran Pct Auto 0.4 % (0.0-0.4); Lymphocytes Absolute Auto 1.4 X10*3/uL (1.2-4.9); Mean Corpuscular HGB Conc 33.4 g/dl (31.0-36.0); Mean Corpuscular Hemoglobin 30.8 pg (27.0-33.0); Mean Corpuscular Volume 92.2 fL (80.0-98.0); Mean Platelet Volume 10.8 fL (9.4-12.4); Monocytes Absolute Auto 0.6 X10*3/uL (0.1-1.2); Monocytes Percent Auto 7.3 % (2-11); Neutrophils Percent Auto 72.9 % (45-73); Platelet Count 147 X10*3/uL (160-400); Red Blood Count 4.48 X10*6/uL (4.60-5.80); Red Cell Distribution Width 13.7 % (11.0-16.0); White Blood Count 8.3 X10*3/uL (4.8-10.8)
[2022-11-22 12:58] LABS: Anion Gap 11 (12-20); Blood Urea Nitrogen 13 mg/dL (9-16); Calcium 8.8 mg/dL (8.4-10.2); Carbon Dioxide 30 mmol/L (22-29); Chloride 103 mmol/L (96-108); Creatinine Clr Calc Pharmacy 118.5; Estimated Glomerular Filt Rate > 60; Glucose Random 117 mg/dL (60-115); Potassium 4.7 mmol/L (3.3-5.1); Sodium 139 mmol/L (135-145)
--- NOTE | 2022-11-22 14:09 | PC.NURSE ---
pt continues to deny any si/ 1:1 sitter continues at bedside.
--- NOTE | 2022-11-22 14:32 | P.CNNE_ITS ---
History of Present Illness Data of Consult Service Date: 11/22/22 Primary Care Provider: Unknown Physician HPI Reason for consult: Possible stroke 62-year-old male past medical history of hypertension, diabetes, hyperlipidemia, history of opioid use disorder on Suboxone, depression anxiety, comes into the hospital with complaints of withdrawals from alcohol. At some point in emergency room he was noted to have facial asymmetry and a stroke alert was started and I was asked to see him. There was no sign of any seizure. I saw him in emergency room. At that point he was anxious and nervous and asking result was testing. Review of Systems 2 Review of Systems: Confusion that brought him here [facility] Past Medical History Medical History (Updated 11/22/22 @ 14:35 by Phillip العلي MD) Hyperlipidemia Depression with anxiety Diabetes Hypertension Social History Social History Alcohol intake: current Alcohol intake frequency: 3 or more drinks per day Alcohol type: hard liquor Patient Tobacco Use Status: Former Tobacco user Smoked in Last 30 Days: No Use of substances other than those prescribed or required for medical reasons: No Substance Use Type: Opiates Advance Directives: No Advance Directives Information Provided: No service: Yes Meds Allergies Allergy/AdvReac Type Severity Reaction Status Date / Time No Known Allergies Allergy Verified 11/21/22 15:02 Active Medications: Current Medications Acetaminophen (Acetaminophen 325 Mg Tablet) 650 mg PO Q6H PRN PRN Reason: Pain, Mild (Pain Scale 1-3) Acyclovir (Acyclovir 200 Mg Capsule) 400 mg PO BID [facility] Last Admin: 11/22/22 10:47 Dose: 400 mg Atorvastatin Calcium (Atorvastatin Calcium 10 Mg Tablet) 10 mg PO BEDTIME [facility] Last Admin: 11/22/22 00:15 Dose: 10 mg Buprenorphine/Naloxone (Buprenorphine/Naloxone 2/0.5mg Film) 1 film SUBLINGUAL DAILY [facility] Last Admin: 11/22/22 10:48 Dose: 1 film Buprenorphine/Naloxone (Buprenorphine/Naloxone 8/2 Mg Film) 2 film BUCCAL DAILY [facility] Last Admin: 11/22/22 10:48 Dose: 2 film Buspirone HCl (Buspirone Hcl 5 Mg Tablet) 5 mg PO BID [facility] Last Admin: 11/22/22 10:45 Dose: 5 mg Dextrose (Dextrose 50 % 25 Gm/50 Ml Syringe) 25 gm IVPUSH Q15M PRN; Protocol PRN Reason: per Hypoglycemia Standing Ord. Docusate Sodium (Docusate Sodium 100 Mg Capsule) 100 mg PO DAILY PRN PRN Reason: Constipation Duloxetine HCl (Duloxetine Hcl 60 Mg Capsule.Dr) 60 mg PO DAILY [facility] Last Admin: 11/22/22 10:46 Dose: 60 mg Finasteride (Finasteride 5 Mg Tablet) 5 mg PO DAILY [facility] Last Admin: 11/22/22 10:47 Dose: 5 mg Folic Acid (Folic Acid 1 Mg Tablet) 1 mg PO DAILY [facility] Last Admin: 11/22/22 10:46 Dose: 1 mg Gabapentin (Gabapentin 400 Mg Capsule) 1,200 mg PO TID [facility] Last Admin: 11/22/22 10:46 Dose: 1,200 mg Glucose (Glucose Gel 15 Gm Gel..Gram.) 15 gm PO Q15M PRN; Protocol PRN Reason: per Hypoglycemia Standing Ord. Hydroxyzine HCl (Hydroxyzine Hcl 25 Mg Tablet) 25 mg PO BEDTIME [facility] Last Admin: 11/22/22 00:15 Dose: 25 mg Insulin Human Lispro (Insulin Lispro 100 Unit/Ml 3 Ml Vial) 0.1 - 10 unit SUBCUT QIDACHS [facility]; Protocol Last Admin: 11/22/22 12:43 Dose: Not Given Lisinopril (Lisinopril 2.5 Mg Tablet) 2.5 mg PO DAILY [facility]; Protocol Last Admin: 11/22/22 10:46 Dose: 2.5 mg Melatonin (Melatonin 3 Mg Tablet) 9 mg PO BEDTIME [facility] Metoprolol Succinate (Metoprolol Succinate Er 25 Mg Tab.Er.24h) 25 mg PO BEDTIME [facility]; Protocol Last Admin: 11/22/22 00:15 Dose: 25 mg Multivitamins/Vitamin C (Multivitamin Tablet) 1 tab PO DAILY [facility] Last Admin: 11/22/22 10:46 Dose: 1 tab Ondansetron HCl (Ondansetron Hcl 4 Mg/2 Ml Vial) 4 mg IVPUSH Q8H PRN PRN Reason: Nausea and Vomiting Pharmacy Consult (Consult Rx Etoh Phenob Im/Po) 1 each MISCELLANE ONCE PRN; Protocol PRN Reason: Consult order Phenobarbital (Phenobarbital 15 Mg Tablet) 45 mg PO BID [facility]; Protocol Stop: 11/23/22 21:01 Last Admin: 11/22/22 10:45 Dose: 45 mg Phenobarbital (Phenobarbital 30 Mg Tablet) 30 mg PO BID [facility]; Protocol Stop: 11/25/22 21:01 Phenobarbital (Phenobarbital 15 Mg Tablet) 15 mg PO DAILY [facility]; Protocol Stop: 11/27/22 09:01 Polyethylene Glycol (Polyethylene Glycol 3350 17 Gm Powd.Pack) 17 gm PO DAILY [facility] Last Admin: 11/22/22 10:53 Dose: 17 gm Senna/Docusate Sodium (Sennosides/Docusate Sodium Tablet) 2 tab PO BEDTIME [facility] Last Admin: 11/22/22 00:15 Dose: 2 tab Sodium Chloride (0.9 % Sodium Chloride Flush 3 Ml Syringe) 3 ml IVFLUSH QSHIFT [facility] Last Admin: 11/22/22 10:36 Dose: Not Given Tamsulosin HCl (Tamsulosin Hcl 0.4 Mg Capsule) 0.4 mg PO BID [facility] Last Admin: 11/22/22 10:52 Dose: 0.4 mg Thiamine HCl (Thiamine Hcl 100 Mg Tablet) 100 mg PO DAILY [facility] Last Admin: 11/22/22 10:47 Dose: 100 mg Trazodone HCl (Trazodone Hcl 100 Mg Tablet) 300 mg PO BEDTIME [facility] Last Admin: 11/22/22 00:15 Dose: 300 mg Home Medications Medication Instructions Recorded Confirmed Last Taken Type acyclovir 400 mg tablet 400 mg PO BID 11/21/22 11/21/22 11/21/22 History atorvastatin 20 mg tablet 10 mg PO BEDTIME 11/21/22 11/21/22 11/20/22 History buprenorphine 2 mg-naloxone 0.5 mg 1 film buccal DAILY 11/21/22 11/21/22 11/21/22 History sublingual film (Suboxone) buprenorphine 8 mg-naloxone 2 mg 2 film buccal DAILY 11/21/22 11/21/22 11/21/22 History sublingual film (Suboxone) buspirone 5 mg tablet 5 mg PO BID 11/21/22 11/21/22 11/21/22 History duloxetine 60 mg capsule,delayed 60 mg PO DAILY 11/21/22 11/21/22 11/21/22 History release sprinkle finasteride 5 mg tablet 5 mg PO DAILY 11/21/22 11/21/22 11/21/22 History gabapentin 400 mg capsule 1,200 mg PO TID 11/21/22 11/21/22 11/21/22 History hydroxyzine HCl 25 mg tablet 25 mg PO BEDTIME 11/21/22 11/21/22 11/21/22 History lisinopril 2.5 mg tablet 2.5 mg PO DAILY 11/21/22 11/21/22 11/21/22 History melatonin 5 mg tablet 10 mg PO BEDTIME 11/21/22 11/21/22 11/20/22 History metformin 1,000 mg tablet 1,000 mg PO DAILY 11/21/22 11/21/22 11/21/22 History metoprolol succinate 25 mg capsule 25 mg PO BEDTIME 11/21/22 11/21/22 11/20/22 History sprinkle, ext. release 24 hr multivitamin 1 tab PO DAILY 11/21/22 11/21/22 11/21/22 History polyethylene glycol 3350 17 17 g PO DAILY 11/21/22 11/21/22 11/21/22 History gram/dose oral powder (Miralax) sennosides 8.6 mg-docusate sodium 2 tab-cap PO BEDTIME 11/21/22 11/21/22 11/20/22 History 50 mg tablet tamsulosin 0.4 mg capsule 0.4 mg PO BID 11/21/22 11/21/22 11/21/22 History trazodone 100 mg tablet 300 mg PO BEDTIME 11/21/22 11/21/22 11/20/22 History Physical Exam 2 Vital Signs: Vital Signs: Last Vital Signs Temp 98.7 F 11/22/22 13:51 Pulse 101 H 11/22/22 13:51 Resp 12 11/22/22 13:51 BP 154/95 H 11/22/22 13:51 Pulse Ox 93 11/22/22 14:00 O2 Del Method Room Air 11/22/22 14:00 O2 Flow Rate 2 11/22/22 10:37 BMI result Body Mass Index 33.7 Neuro: Other: He is alert and awake confused and restless. He is following commands and asking for test results. Face is flushed. Eyes are somewhat widened. There is no facial asymmetry. Visual cifuentes are full. There is no obvious focal arm or leg weakness. Plantars are flexors. Results Labs 11/22/22 12:36 11/22/22 12:36 Labs: Short CBC 11/21/22 11/22/22 Range/Units 15:59 12:36 WBC 6.7 8.3 (4.8-10.8) X10*3/uL Hgb 14.1 13.8 L (14.0-18.0) g/dl Hct 41.6 L 41.3 L (42.0-52.0) % Plt Count 162 D 147 L (160-400) X10*3/uL BMP 11/21/22 11/22/22 15:59 12:36 Sodium 145 139 Potassium 4.3 4.7 Chloride 104 103 Carbon Dioxide 30 H 30 H BUN 11 13 Creatinine 0.80 0.77 Calcium 9.1 8.8 Liver Function 11/21/22 Range/Units 15:59 Total Bilirubin 0.3 (0.0-1.0) mg/dL Direct Bilirubin 0.1 (0.0-0.5) mg/dL AST 40 H (5-37) U/L ALT 34 (0-40) U/L Alkaline Phosphatase 82 (39-117) U/L Albumin 3.9 (3.5-5.0) g/dL Urine 11/21/22 Range/Units 17:27 Urine Color Yellow Urine Appearance Clear Urine pH 6.5 (5.0-9.0) Ur Specific [place] 1.010 (1.005-1.025) Urine Protein Trace (Neg-Trace) mg/dL Urine Glucose (UA) Negative (Negative) mg/dL noncontrast head CT did not reveal any acute abnormality. Mild cerebellar and cerebral cortical atrophy is noted. Alcohol level is 249. Assessment and Plan (1) Encephalopathy: Status: Acute Acute alcoholic encephalopathy. I do not see any overt signs of focal lesion such as stroke. Mainstay of management is alcohol withdrawal protocol, thiamine, folate, B complex vitamin and multi vitamin. Appropriate hydration is recommended. Time Spent With Patient Time: Total time managing care of this patient today ____ minutes. Procedures Date of Service Date of Service: 11/22/22
--- NOTE | 2022-11-22 16:08 | PC.NURSE ---
RN TO RN REPORT GIVEN TO ESTRELLITA .PT AWARE OF PLAN OF CARE
[2022-11-22] MEDS: 0.9 % Sodium Chloride Flush 3 ML SYRINGE IVFLUSH ×2 (16:27→23:56)
--- NOTE | 2022-11-22 16:43 | PC.NURSE ---
#10iv r to l hand
[2022-11-22 17:15] LABS: Glucose, Whole Blood 114 mg/dL (60-115)
--- NOTE | 2022-11-22 18:10 | P.PNIM_ITS ---
Subjective Subjective Date of Service: 11/22/22 Interval History: seen and examined this morning follow up for etoh withdrawal this morning, pt thought to have left side droop - stat brain CT done and neurology alerted - brain CT negative, seen by neurology - no evidence of stroke. rec to treat withdrawal Review of Systems Review of Systems: Yes all other systems are reviewed and are negative Constitutional Constitutional: Denies chills and Denies fever(s) ENT Ears, Nose, Mouth, and Throat: Denies dizziness Cardiovascular Cardiovascular: Denies chest pain and Denies dyspnea Respiratory Respiratory: Denies dyspnea Gastrointestinal Gastrointestinal: Denies abdominal pain, Denies nausea and Denies vomiting Neurologic Neurologic: Denies dizziness Physical Exam 2 Vital Signs: Vital Signs: Last Vital Signs Temp 98.4 F 11/22/22 16:58 Pulse 95 11/22/22 16:58 Resp 18 11/22/22 16:58 BP 144/77 H 11/22/22 16:58 Pulse Ox 92 11/22/22 16:58 O2 Del Method Room Air 11/22/22 16:58 O2 Flow Rate 2 11/22/22 16:23 BMI result Body Mass Index 34.3 Const: General: cooperative, comfortable, no acute distress, alert and awake Nutritional Appearance: overweight Orientation/consciousness: patient oriented x3 Resp: Effort & Inspection: no respiratory distress and no use of accessory muscles Auscultation: clear to auscultation bilaterally Cardio: Rate: regular rate GI: Inspection: No distended Palpation (GI): Soft to palpation and nontender Neuro: Other: intial eval no focal deficits; repeat eval possible slight droop to left side General: patient oriented x3 and moves all extremities Objective Data Active Medications Acetaminophen (Acetaminophen 325 Mg Tablet) 650 mg PO Q6H PRN PRN Reason: Pain, Mild (Pain Scale 1-3) Acyclovir (Acyclovir 200 Mg Capsule) 400 mg PO BID [facility] Last Admin: 11/22/22 10:47 Dose: 400 mg Documented By: BOO Atorvastatin Calcium (Atorvastatin Calcium 10 Mg Tablet) 10 mg PO BEDTIME [facility] Last Admin: 11/22/22 00:15 Dose: 10 mg Documented By: JACKY Buprenorphine/Naloxone (Buprenorphine/Naloxone 2/0.5mg Film) 1 film SUBLINGUAL DAILY [facility] Last Admin: 11/22/22 10:48 Dose: 1 film Documented By: BOO Buprenorphine/Naloxone (Buprenorphine/Naloxone 8/2 Mg Film) 2 film BUCCAL DAILY [facility] Last Admin: 11/22/22 10:48 Dose: 2 film Documented By: BOO Buspirone HCl (Buspirone Hcl 5 Mg Tablet) 5 mg PO BID [facility] Last Admin: 11/22/22 10:45 Dose: 5 mg Documented By: BOO Dextrose (Dextrose 50 % 25 Gm/50 Ml Syringe) 25 gm IVPUSH Q15M PRN; Protocol PRN Reason: per Hypoglycemia Standing Ord. Docusate Sodium (Docusate Sodium 100 Mg Capsule) 100 mg PO DAILY PRN PRN Reason: Constipation Duloxetine HCl (Duloxetine Hcl 60 Mg Capsule.Dr) 60 mg PO DAILY [facility] Last Admin: 11/22/22 10:46 Dose: 60 mg Documented By: BOO Finasteride (Finasteride 5 Mg Tablet) 5 mg PO DAILY [facility] Last Admin: 11/22/22 10:47 Dose: 5 mg Documented By: BOO Folic Acid (Folic Acid 1 Mg Tablet) 1 mg PO DAILY [facility] Last Admin: 11/22/22 10:46 Dose: 1 mg Documented By: BOO Gabapentin (Gabapentin 400 Mg Capsule) 1,200 mg PO TID [facility] Last Admin: 11/22/22 16:26 Dose: 1,200 mg Documented By: BOO Glucose (Glucose Gel 15 Gm Gel..Gram.) 15 gm PO Q15M PRN; Protocol PRN Reason: per Hypoglycemia Standing Ord. Hydroxyzine HCl (Hydroxyzine Hcl 25 Mg Tablet) 25 mg PO BEDTIME [facility] Last Admin: 11/22/22 00:15 Dose: 25 mg Documented By: JACKY Insulin Human Lispro (Insulin Lispro 100 Unit/Ml 3 Ml Vial) 0.1 - 10 unit SUBCUT QIDACHS [facility]; Protocol Last Admin: 11/22/22 17:23 Dose: Not Given Documented By: JOSE L Non-Admin Reason: No Insulin Coverage Lisinopril (Lisinopril 2.5 Mg Tablet) 2.5 mg PO DAILY [facility]; Protocol Last Admin: 11/22/22 10:46 Dose: 2.5 mg Documented By: BOO Melatonin (Melatonin 3 Mg Tablet) 9 mg PO BEDTIME [facility] Metoprolol Succinate (Metoprolol Succinate Er 25 Mg Tab.Er.24h) 25 mg PO BEDTIME [facility]; Protocol Last Admin: 11/22/22 00:15 Dose: 25 mg Documented By: JACKY Multivitamins/Vitamin C (Multivitamin Tablet) 1 tab PO DAILY [facility] Last Admin: 11/22/22 10:46 Dose: 1 tab Documented By: BOO Ondansetron HCl (Ondansetron Hcl 4 Mg/2 Ml Vial) 4 mg IVPUSH Q8H PRN PRN Reason: Nausea and Vomiting Pharmacy Consult (Consult Rx Etoh Phenob Im/Po) 1 each MISCELLANE ONCE PRN; Protocol PRN Reason: Consult order Phenobarbital (Phenobarbital 15 Mg Tablet) 45 mg PO BID [facility]; Protocol Stop: 11/23/22 21:01 Last Admin: 11/22/22 10:45 Dose: 45 mg Documented By: BOO Phenobarbital (Phenobarbital 30 Mg Tablet) 30 mg PO BID [facility]; Protocol Stop: 11/25/22 21:01 Phenobarbital (Phenobarbital 15 Mg Tablet) 15 mg PO DAILY [facility]; Protocol Stop: 11/27/22 09:01 Polyethylene Glycol (Polyethylene Glycol 3350 17 Gm Powd.Pack) 17 gm PO DAILY [facility] Last Admin: 11/22/22 10:53 Dose: 17 gm Documented By: BOO Senna/Docusate Sodium (Sennosides/Docusate Sodium Tablet) 2 tab PO BEDTIME [facility] Last Admin: 11/22/22 00:15 Dose: 2 tab Documented By: JACKY Sodium Chloride (0.9 % Sodium Chloride Flush 3 Ml Syringe) 3 ml IVFLUSH [facility] Last Admin: 11/22/22 16:27 Dose: 3 ml Documented By: BOO Tamsulosin HCl (Tamsulosin Hcl 0.4 Mg Capsule) 0.4 mg PO BID [facility] Last Admin: 11/22/22 10:52 Dose: 0.4 mg Documented By: BOO Thiamine HCl (Thiamine Hcl 100 Mg Tablet) 100 mg PO DAILY [facility] Last Admin: 11/22/22 10:47 Dose: 100 mg Documented By: BOO Trazodone HCl (Trazodone Hcl 100 Mg Tablet) 300 mg PO BEDTIME [facility] Last Admin: 11/22/22 00:15 Dose: 300 mg Documented By: JACKY Labs 11/22/22 12:36 11/22/22 12:36 Labs: Laboratory Results - last 24 hr 11/22/22 11/22/22 11/22/22 06:48 12:36 12:42 MCV 92.2 MCH 30.8 MCHC 33.4 RDW 13.7 Plt Count 147 L MPV 10.8 Immature Gran % (Auto) 0.4 Neut % (Auto) 72.9 Lymph % (Auto) 17.0 L Crawford % (Auto) 7.3 Eos % (Auto) 1.3 Baso % (Auto) 1.1 Lymph # (Auto) 1.4 Crawford # (Auto) 0.6 Eos # (Auto) 0.1 Baso # (Auto) 0.1 Abs Immat Gran (auto) 0.03 Absolute Neuts (auto) 6.0 Absolute Nucleated RBC 0.000 Nucleated RBC % (auto) 0.0 Anion Gap 11 L Estim Creat Clear Calc 118.5 Estimated GFR > 60 POC Glucose 113 118 H Random Glucose 117 H Calcium 8.8 11/22/22 17:06 MCV MCH MCHC RDW Plt Count MPV Immature Gran % (Auto) Neut % (Auto) Lymph % (Auto) Crawford % (Auto) Eos % (Auto) Baso % (Auto) Lymph # (Auto) Crawford # (Auto) Eos # (Auto) Baso # (Auto) Abs Immat Gran (auto) Absolute Neuts (auto) Absolute Nucleated RBC Nucleated RBC % (auto) Anion Gap Estim Creat Clear Calc Estimated GFR POC Glucose 114 Random Glucose Calcium Assessment and Plan (1) Alcohol abuse with withdrawal: Status: Acute Plan 62-year-old male past medical history of alcohol abuse comes into the hospital for detox found to be in alcohol withdrawal alcohol dependence with acute alcohol withdrawal continue phenobarb protocol continue thiamine and folic acid follow [facility] addiction medicine following suicidal ideation endorsed self-harm, feeling significantly more depressed continue 1 and 1 care team eval when medically cleared ?left side droop brain CT negative seen by neuro, no deficits appreciated and no further work up recommended hypertension stable continue antihypertensives thrombocytopenia r/t etoh use follow cbc Diabetes hold oral antihyperglycemics low-dose sliding scale insulin mood continue home meds will need care team eval for level of care when medically clear as above bph continue flomax, proscar ?opiate dependence vs chronic pain - will confirm indication with pt continue suboxone nitcotine dependence smoking cessation advised NRT DVT prophylaxis: lovenox attending - dr. Rice requires ongoing inpatient stay for close monitoring for alcohol withdrawal Time Spent With Patient Time: Total time managing care of this patient today ____ minutes. Quality Stroke Does the patient have a stroke diagnosis?: No VTE Prior VTE?: No VTE Risk Level:: Medical - low VTE Device Contraindication: Treatment Not Indicated VTE Drug Contraindication: Treatment Not Indicated
[2022-11-22 19:54] LABS: Glucose, Whole Blood 170 mg/dL (60-115)
[2022-11-22] MEDS: Melatonin 3 MG TABLET 9 MG PO (19:57)
[2022-11-22] MEDS: Enoxaparin Sodium 40 MG/0.4 ML SYRINGE SUBCUT (19:59)
[2022-11-22] MEDS: Insulin Lispro 100 UNIT/ML 3 ML VIAL SUBCUT (20:03)
[2022-11-23 03:49] VITALS: BP 145/78; PULSE 106; RESP 18; TEMP 36.1; O2SAT 92
[2022-11-23 05:48] LABS: NRBC Pct Auto 0.2 /100WBC (0.0-0.2); PLT CLUMP 1
[2022-11-23 05:49] LABS: Hematocrit 44.3 % (42.0-52.0); Hemoglobin 14.5 g/dl (14.0-18.0); Mean Corpuscular HGB Conc 32.7 g/dl (31.0-36.0); Mean Corpuscular Hemoglobin 30.6 pg (27.0-33.0); Mean Corpuscular Volume 93.5 fL (80.0-98.0); Mean Platelet Volume 11.2 fL (9.4-12.4); Red Blood Count 4.74 X10*6/uL (4.60-5.80); Red Cell Distribution Width 13.7 % (11.0-16.0)
[2022-11-23 05:51] LABS: Platelet Count 126 X10*3/uL (160-400); White Blood Count 11.3 X10*3/uL (4.8-10.8)
[2022-11-23 06:03] LABS: Anion Gap 12 (12-20); Blood Urea Nitrogen 12 mg/dL (9-16); Calcium 8.5 mg/dL (8.4-10.2); Carbon Dioxide 30 mmol/L (22-29); Chloride 101 mmol/L (96-108); Creatinine Clr Calc Pharmacy 116.4; Estimated Glomerular Filt Rate > 60; Glucose Random 158 mg/dL (60-115); Magnesium 1.8 mg/dL (1.6-2.6); Potassium 4.4 mmol/L (3.3-5.1); Sodium 139 mmol/L (135-145)
[2022-11-23 07:29] VITALS: BP 131/76; PULSE 85; RESP 20; TEMP 36.5; O2SAT 90
[2022-11-23 07:40] LABS: Glucose, Whole Blood 174 mg/dL (60-115)
[2022-11-23] MEDS: Acyclovir 200 MG CAPSULE 400 MG PO ×2 (08:12→20:28)
[2022-11-23] MEDS: Gabapentin 400 MG CAPSULE 1200 MG PO ×2 (08:12→20:57)
[2022-11-23] MEDS: PHENobarbitaL 15 MG TABLET 45 MG PO ×2 (08:12→20:31)
[2022-11-23] MEDS: Magnesium Oxide 400 MG TABLET PO ×2 (08:12→17:45)
[2022-11-23] MEDS: busPIRone HCl 5 MG TABLET PO ×2 (08:12→20:35)
[2022-11-23] MEDS: Tamsulosin HCL 0.4 MG CAPSULE PO ×2 (08:13→20:29)
[2022-11-23] MEDS: Acetaminophen 325 MG TABLET 650 MG PO (08:13)
[2022-11-23] MEDS: lisinopriL 2.5 MG TABLET PO (08:13)
[2022-11-23] MEDS: Thiamine HCL 100 MG TABLET PO (08:13)
[2022-11-23] MEDS: DULoxetine HCl 60 MG CAPSULE.DR PO (08:13)
[2022-11-23] MEDS: Folic Acid 1 MG TABLET PO (08:13)
[2022-11-23] MEDS: Multivitamin TABLET 1 TAB PO (08:13)
[2022-11-23] MEDS: polyethylene glycoL 3350 17 GM POWD.PACK PO (08:18)
[2022-11-23] MEDS: 0.9 % Sodium Chloride Flush 3 ML SYRINGE IVFLUSH ×3 (08:18→20:27)
[2022-11-23] MEDS: Buprenorphine/Naloxone 8/2 mg FILM 2 FILM BUCCAL (08:19)
[2022-11-23] MEDS: Buprenorphine/Naloxone 2/0.5mg FILM 1 FILM SUBLINGUAL (08:19)
[2022-11-23] MEDS: Finasteride 5 MG TABLET PO (08:19)
[2022-11-23] MEDS: Insulin Lispro 100 UNIT/ML 3 ML VIAL SUBCUT ×3 (09:46→17:02)
[2022-11-23 10:50] LABS: Glucose, Whole Blood 194 mg/dL (60-115)
[2022-11-23 15:30] VITALS: BP 120/68; PULSE 76; RESP 18; TEMP 36.4; O2SAT 94
--- NOTE | 2022-11-23 15:59 | HO.PM.IMPN ---
Subjective Subjective Date of Service: 11/23/22 Interval History: seen and examined this morning sleepy denies any complaints re-eval in afternoon patient much more awake and alert no sob, palpitations, abdominal pain Review of Systems Review of Systems: Yes all other systems are reviewed and are negative Constitutional Constitutional: Denies chills and Denies fever(s) ENT Ears, Nose, Mouth, and Throat: Denies dizziness Cardiovascular Cardiovascular: Denies chest pain and Denies palpitations Neurologic Neurologic: Denies dizziness Endocrine Endocrine: Denies palpitations Physical Exam Vital Signs: Vital Signs: Last Vital Signs Temp 97.5 F 11/23/22 15:30 Pulse 76 11/23/22 15:30 Resp 18 11/23/22 15:30 BP 120/68 11/23/22 15:30 Pulse Ox 94 11/23/22 15:30 O2 Del Method Nasal Cannula 11/23/22 15:30 O2 Flow Rate 2 11/23/22 15:30 BMI result Body Mass Index 34.3 Const: General: cooperative, comfortable, no acute distress, alert and awake Nutritional Appearance: overweight Orientation/consciousness: patient oriented x3 Resp: Effort & Inspection: no respiratory distress and no use of accessory muscles Auscultation: clear to auscultation bilaterally Cardio: Rate: regular rate GI: Inspection: No distended Palpation (GI): Soft to palpation and nontender Neuro: General: patient oriented x3, moves all extremities and CN's II-XI intact bilaterally Objective Data Active Medications Acetaminophen (Acetaminophen 325 Mg Tablet) 650 mg PO Q6H PRN PRN Reason: Pain, Mild (Pain Scale 1-3) Last Admin: 11/23/22 08:13 Dose: 650 mg Documented By: HIRAM Acyclovir (Acyclovir 200 Mg Capsule) 400 mg PO BID [facility] Last Admin: 11/23/22 08:12 Dose: 400 mg Documented By: HIRAM Atorvastatin Calcium (Atorvastatin Calcium 10 Mg Tablet) 10 mg PO BEDTIME [facility] Last Admin: 11/22/22 19:59 Dose: 10 mg Documented By: JOSE L Buprenorphine/Naloxone (Buprenorphine/Naloxone 2/0.5mg Film) 1 film SUBLINGUAL DAILY [facility] Last Admin: 11/23/22 08:19 Dose: 1 film Documented By: HIRAM Buprenorphine/Naloxone (Buprenorphine/Naloxone 8/2 Mg Film) 2 film BUCCAL DAILY [facility] Last Admin: 11/23/22 08:19 Dose: 2 film Documented By: HIRAM Buspirone HCl (Buspirone Hcl 5 Mg Tablet) 5 mg PO BID [facility] Last Admin: 11/23/22 08:12 Dose: 5 mg Documented By: HIRAM Dextrose (Dextrose 50 % 25 Gm/50 Ml Syringe) 25 gm IVPUSH Q15M PRN; Protocol PRN Reason: per Hypoglycemia Standing Ord. Docusate Sodium (Docusate Sodium 100 Mg Capsule) 100 mg PO DAILY PRN PRN Reason: Constipation Duloxetine HCl (Duloxetine Hcl 60 Mg Capsule.Dr) 60 mg PO DAILY [facility] Last Admin: 11/23/22 08:13 Dose: 60 mg Documented By: HIRAM Enoxaparin Sodium (Enoxaparin Sodium 40 Mg/0.4 Ml Syringe) 40 mg SUBCUT Q24H [facility] Last Admin: 11/22/22 19:59 Dose: 40 mg Documented By: JOSE L Finasteride (Finasteride 5 Mg Tablet) 5 mg PO DAILY [facility] Last Admin: 11/23/22 08:19 Dose: 5 mg Documented By: HIRAM Folic Acid (Folic Acid 1 Mg Tablet) 1 mg PO DAILY [facility] Last Admin: 11/23/22 08:13 Dose: 1 mg Documented By: HIRAM Gabapentin (Gabapentin 400 Mg Capsule) 1,200 mg PO TID [facility] Last Admin: 11/23/22 10:06 Dose: Not Given Documented By: HIRAM Non-Admin Reason: Hold dose per M.D. Glucose (Glucose Gel 15 Gm Gel..Gram.) 15 gm PO Q15M PRN; Protocol PRN Reason: per Hypoglycemia Standing Ord. Hydroxyzine HCl (Hydroxyzine Hcl 25 Mg Tablet) 25 mg PO BEDTIME [facility] Last Admin: 11/22/22 19:58 Dose: 25 mg Documented By: JOSE L Insulin Human Lispro (Insulin Lispro 100 Unit/Ml 3 Ml Vial) 0.1 - 10 unit SUBCUT QIDACHS [facility]; Protocol Last Admin: 11/23/22 12:25 Dose: 2 unit Documented By: HIRAM Lisinopril (Lisinopril 2.5 Mg Tablet) 2.5 mg PO DAILY [facility]; Protocol Last Admin: 11/23/22 08:13 Dose: 2.5 mg Documented By: HIRAM Magnesium Oxide (Magnesium Oxide 400 Mg Tablet) 400 mg PO BIDPC [facility] Last Admin: 11/23/22 08:12 Dose: 400 mg Documented By: HIRAM Melatonin (Melatonin 3 Mg Tablet) 9 mg PO BEDTIME [facility] Last Admin: 11/22/22 19:57 Dose: 9 mg Documented By: JOSE L Metoprolol Succinate (Metoprolol Succinate Er 25 Mg Tab.Er.24h) 25 mg PO BEDTIME [facility]; Protocol Last Admin: 11/22/22 19:58 Dose: 25 mg Documented By: JOSE L Multivitamins/Vitamin C (Multivitamin Tablet) 1 tab PO DAILY [facility] Last Admin: 11/23/22 08:13 Dose: 1 tab Documented By: HIRAM Nicotine Polacrilex (Nicotine Polacrilex 2 Mg Gum) 2 mg BUCCAL Q2H PRN PRN Reason: Nicotine Cravings Ondansetron HCl (Ondansetron Hcl 4 Mg/2 Ml Vial) 4 mg IVPUSH Q8H PRN PRN Reason: Nausea and Vomiting Pharmacy Consult (Consult Rx Etoh Phenob Im/Po) 1 each MISCELLANE ONCE PRN; Protocol PRN Reason: Consult order Phenobarbital (Phenobarbital 15 Mg Tablet) 45 mg PO BID [facility]; Protocol Stop: 11/23/22 21:01 Last Admin: 11/23/22 08:12 Dose: 45 mg Documented By: HIRAM Phenobarbital (Phenobarbital 30 Mg Tablet) 30 mg PO BID [facility]; Protocol Stop: 11/25/22 21:01 Phenobarbital (Phenobarbital 15 Mg Tablet) 15 mg PO DAILY [facility]; Protocol Stop: 11/27/22 09:01 Polyethylene Glycol (Polyethylene Glycol 3350 17 Gm Powd.Pack) 17 gm PO DAILY [facility] Last Admin: 11/23/22 08:18 Dose: 17 gm Documented By: HIRAM Senna/Docusate Sodium (Sennosides/Docusate Sodium Tablet) 2 tab PO BEDTIME [facility] Last Admin: 11/22/22 19:58 Dose: 2 tab Documented By: JOSE L Sodium Chloride (0.9 % Sodium Chloride Flush 3 Ml Syringe) [facility] Last Admin: 11/23/22 08:18 Dose: 3 ml Documented By: HIRAM Tamsulosin HCl (Tamsulosin Hcl 0.4 Mg Capsule) 0.4 mg PO BID [facility] Last Admin: 11/23/22 08:13 Dose: 0.4 mg Documented By: HIRAM Thiamine HCl (Thiamine Hcl 100 Mg Tablet) 100 mg PO DAILY [facility] Last Admin: 11/23/22 08:13 Dose: 100 mg Documented By: HIRAM Labs 11/23/22 05:22 11/23/22 05:22 Labs: Laboratory Results - last 24 hr 11/22/22 11/22/22 11/23/22 17:06 19:49 05:22 MCV 93.5 MCH 30.6 MCHC 32.7 RDW 13.7 Plt Count 126 L MPV 11.2 Absolute Nucleated RBC 0.020 H Nucleated RBC % (auto) 0.2 Anion Gap 12 Estim Creat Clear Calc 116.4 Estimated GFR > 60 POC Glucose 114 170 H Random Glucose 158 H Calcium 8.5 Magnesium 1.8 11/23/22 11/23/22 07:36 10:46 MCV MCH MCHC RDW Plt Count MPV Absolute Nucleated RBC Nucleated RBC % (auto) Anion Gap Estim Creat Clear Calc Estimated GFR POC Glucose 174 H 194 H Random Glucose Calcium Magnesium Assessment and Plan (1) Alcohol abuse with withdrawal: Status: Acute Plan 62-year-old male past medical history of alcohol abuse comes into the hospital for detox found to be in alcohol withdrawal alcohol dependence with acute alcohol withdrawal continue phenobarb protocol continue thiamine and folic acid follow [facility] addiction medicine following hold sedating meds while getting phenobarb as patient was appearing lethargic suicidal ideation endorsed self-harm, feeling significantly more depressed continue 1 and 1 care team eval when medically cleared concern over left side droop brain CT negative seen by neuro, no deficits appreciated and no further work up recommended no focal deficits appreciated at this time hypertension stable continue antihypertensives thrombocytopenia r/t etoh use follow cbc Diabetes hold oral antihyperglycemics low-dose sliding scale insulin mood continue home meds will need care team eval for level of care when medically clear as above bph continue flomax, proscar h/o opiate dependence continue suboxone nitcotine dependence smoking cessation advised NRT DVT prophylaxis: lovenox attending - dr. Rice requires ongoing inpatient stay for close monitoring for alcohol withdrawal Time Spent With Patient Time: Total time managing care of this patient today ____ minutes. Quality Stroke Does the patient have a stroke diagnosis?: No VTE Prior VTE?: No VTE Risk Level:: Medical - low VTE Device Contraindication: Treatment Not Indicated VTE Drug Contraindication: Treatment Not Indicated
--- NOTE | 2022-11-23 16:08 | MHC.CM.PN ---
Per MD rounds no discharge today. Neurontin is on hold Crisi to see patient once medically cleared. Patient will need assist with transport at discharge.
[2022-11-23 16:19] LABS: Glucose, Whole Blood 151 mg/dL (60-115)
[2022-11-23] MEDS: Enoxaparin Sodium 40 MG/0.4 ML SYRINGE SUBCUT (17:45)
--- NOTE | 2022-11-23 17:58 | MHC.RECOVRN ---
T/w met with pt earlier today to check in. Pt reports he feels weak and tired, states he slept well. Pt intermittently falling asleep mid conversation. States I'm not sure what I am doing. Plan to follow up with pt.
[2022-11-23 19:16] VITALS: BP 131/82; PULSE 90; RESP 16; TEMP 36.7; O2SAT 92
[2022-11-23 20:02] LABS: Glucose, Whole Blood 138 mg/dL (60-115)
[2022-11-23] MEDS: Sennosides/Docusate Sodium TABLET 2 TAB PO (20:28)
[2022-11-23] MEDS: Melatonin 3 MG TABLET 9 MG PO (20:30)
[2022-11-23] MEDS: Atorvastatin Calcium 10 MG TABLET PO (20:33)
[2022-11-23] MEDS: Metoprolol Succinate ER 25 MG TAB.ER.24H PO (20:35)
--- NOTE | 2022-11-23 20:43 | PM.EVENT ---
Event Note Date of Service: 11/23/22 Event Note: pt asking for gabapentin. awake alert, oriented. no encephalopathy or confusion at this time. will resume gabapentin Time Spent With Patient Time: Total time managing care of this patient today ____ minutes.
[2022-11-23] MEDS: Nicotine 21 MG PATCH.TD24 TRANSDERMA (21:57)
--- NOTE | 2022-11-24 00:13 | PC.NURSE ---
Addendum entered by Jenniffer Cantu RN 11/24/22 00:16: Pt in room 369 asked for antacids for heartburn. Dr. Keita was notified. Original Note: Pt in room 369 gabapentin is on hold. Pt is asking for gabapentin, he stated that he takes gaBAPENTIN 3 times a day especially at bedtime. He also asked for a nicotine patech, he stated that he is going through nicotine withdrawal. Dr. Keita was notified, she ordered gabapentin and nicotine patch.
[2022-11-24] MEDS: Calcium Carbonate 750 MG TAB.CHEW PO (02:45)
[2022-11-24 03:47] VITALS: BP 132/83; PULSE 86; RESP 16; TEMP 36.6; O2SAT 93
[2022-11-24] MEDS: Acetaminophen 325 MG TABLET 650 MG PO (03:55)
[2022-11-24 05:56] LABS: MANUAL DIFF FLAG NO
[2022-11-24 06:01] LABS: Basophils Absolute Auto 0.1 X10*3/uL (0.0-0.2); Basophils Percent Auto 0.7 % (0-2); Eosinophils Absolute Auto 0.4 X10*3/uL (0.0-0.4); Eosinophils Percent Auto 4.3 % (0-4); Hematocrit 39.5 % (42.0-52.0); Hemoglobin 13.3 g/dl (14.0-18.0); Imm Gran Abs Auto 0.03 X10*3/uL (0.00-0.03); Imm Gran Pct Auto 0.3 % (0.0-0.4); Lymphocytes Absolute Auto 2.2 X10*3/uL (1.2-4.9); Lymphocytes Percent Auto 23.4 % (20-40); Mean Corpuscular HGB Conc 33.7 g/dl (31.0-36.0); Mean Corpuscular Hemoglobin 31.5 pg (27.0-33.0); Mean Corpuscular Volume 93.6 fL (80.0-98.0); Mean Platelet Volume 11.4 fL (9.4-12.4); Monocytes Absolute Auto 0.7 X10*3/uL (0.1-1.2); Monocytes Percent Auto 7.2 % (2-11); Neutrophils Absolute Auto 6.2 x10*3/uL (2.0-8.3); Neutrophils Percent Auto 64.1 % (45-73); Platelet Count 109 X10*3/uL (160-400); Red Blood Count 4.22 X10*6/uL (4.60-5.80); Red Cell Distribution Width 13.6 % (11.0-16.0); White Blood Count 9.6 X10*3/uL (4.8-10.8)
[2022-11-24 07:15] VITALS: BP 134/82; PULSE 78; RESP 18; TEMP 36.1; O2SAT 90
[2022-11-24 07:50] LABS: Glucose, Whole Blood 133 mg/dL (60-115)
[2022-11-24] MEDS: Gabapentin 400 MG CAPSULE 1200 MG PO ×3 (09:05→19:25)
[2022-11-24] MEDS: Tamsulosin HCL 0.4 MG CAPSULE PO ×2 (09:05→19:28)
[2022-11-24] MEDS: PHENobarbitaL 30 MG TABLET PO ×2 (09:05→19:30)
[2022-11-24] MEDS: Finasteride 5 MG TABLET PO (09:06)
[2022-11-24] MEDS: Thiamine HCL 100 MG TABLET PO (09:06)
[2022-11-24] MEDS: polyethylene glycoL 3350 17 GM POWD.PACK PO (09:06)
[2022-11-24] MEDS: lisinopriL 2.5 MG TABLET PO (09:06)
[2022-11-24] MEDS: Nicotine 21 MG PATCH.TD24 TRANSDERMA (09:06)
[2022-11-24] MEDS: Multivitamin TABLET 1 TAB PO (09:06)
[2022-11-24] MEDS: DULoxetine HCl 60 MG CAPSULE.DR PO (09:06)
[2022-11-24] MEDS: busPIRone HCl 5 MG TABLET PO ×2 (09:06→19:30)
[2022-11-24] MEDS: Acyclovir 200 MG CAPSULE 400 MG PO ×2 (09:06→19:28)
[2022-11-24] MEDS: Magnesium Oxide 400 MG TABLET PO ×2 (09:06→16:43)
[2022-11-24] MEDS: Folic Acid 1 MG TABLET PO (09:06)
[2022-11-24] MEDS: Buprenorphine/Naloxone 2/0.5mg FILM 1 FILM SUBLINGUAL (09:07)
[2022-11-24] MEDS: 0.9 % Sodium Chloride Flush 3 ML SYRINGE IVFLUSH ×3 (09:07→19:31)
[2022-11-24] MEDS: Buprenorphine/Naloxone 8/2 mg FILM 2 FILM BUCCAL (09:07)
[2022-11-24 11:24] LABS: Glucose, Whole Blood 127 mg/dL (60-115)
--- NOTE | 2022-11-24 12:01 | HO.ADDICTCON ---
History of Present Illness Date of Service: 11/24/2022 Chief Complaint: alcohol withdrawl Reason for Consult: Alcohol use disorder Sources of Information: patient interviewed and chart reviewed HPI Narrative: Patient is a 62 year old male darian medically admitted with alcohol withdrawal and suicidal ideation. Patient seen in room 369. He was awake, alert and engaged in interview. Patient reports that he has been struggling with alcohol use disorder for many many years. He reports that he had been in recovery for 1 year up until 2 weeks ago when he had a recurrence of drinking which is what led up to this admission. He reports several long periods of sustained recovery with brief periods of recurrent alcohol use. He is currently engaged in treatment with various treatment providers at the [facility]. He reports he has a psychiatrist and therapist there. He reports strong family supports as well. He reports he is engaged with AA. He states he has a prescription for acamprosate at home which she has not started taking. He reports many years in recovery from opiates (more than 20 years). He is currently prescribed Suboxone. Denies any other substance use. Discussed suicidal ideation at time of admission, patient denies any suicidal thoughts at this time. He reports that unfortunately when he is intoxicated he will often say things that he does not mean or recall. He denies any withdrawal symptoms however he states that he does not feel well yet. He appears slightly tremulous during interview. Review of Systems Constitutional: Reports as per HPI Diagnostics Vital Signs (24Hr): Vital Signs - 24 hr 11/23/22 15:30 11/23/22 19:16 11/24/22 03:47 Temperature 97.5 F 98.1 F 97.9 F Pulse Rate 76 90 86 Respiratory Rate 18 16 16 Blood Pressure 120/68 131/82 132/83 Pulse Oximetry 94 92 93 Oxygen Delivery Method Nasal Cannula Nasal Cannula Room Air Oxygen Flow Rate 2 1 11/24/22 07:15 Temperature 96.9 F Pulse Rate 78 Respiratory Rate 18 Blood Pressure 134/82 Pulse Oximetry 90 L Oxygen Delivery Method Room Air Oxygen Flow Rate BMI result Body Mass Index 34.3 Labs 11/24/22 05:34 11/23/22 05:22 Labs: Laboratory Results - last 48 hr 11/22/22 11/22/22 11/22/22 12:36 12:42 17:06 WBC 8.3 RBC 4.48 L Hgb 13.8 L Hct 41.3 L MCV 92.2 MCH 30.8 MCHC 33.4 RDW 13.7 Plt Count 147 L MPV 10.8 Immature Gran % (Auto) 0.4 Neut % (Auto) 72.9 Lymph % (Auto) 17.0 L [place] % (Auto) 7.3 Eos % (Auto) 1.3 Baso % (Auto) 1.1 Lymph # (Auto) 1.4 [place] # (Auto) 0.6 Eos # (Auto) 0.1 Baso # (Auto) 0.1 Abs Immat Gran (auto) 0.03 Absolute Neuts (auto) 6.0 Absolute Nucleated RBC 0.000 Nucleated RBC % (auto) 0.0 Sodium 139 Potassium 4.7 Chloride 103 Carbon Dioxide 30 H Anion Gap 11 L BUN 13 Creatinine 0.77 Estim Creat Clear Calc 118.5 Estimated GFR > 60 POC Glucose 118 H 114 Random Glucose 117 H Calcium 8.8 Magnesium 11/22/22 11/23/22 11/23/22 19:49 05:22 07:36 WBC 11.3 H RBC 4.74 Hgb 14.5 Hct 44.3 MCV 93.5 MCH 30.6 MCHC 32.7 RDW 13.7 Plt Count 126 L MPV 11.2 Immature Gran % (Auto) Neut % (Auto) Lymph % (Auto) [place] % (Auto) Eos % (Auto) Baso % (Auto) Lymph # (Auto) [place] # (Auto) Eos # (Auto) Baso # (Auto) Abs Immat Gran (auto) Absolute Neuts (auto) Absolute Nucleated RBC 0.020 H Nucleated RBC % (auto) 0.2 Sodium 139 Potassium 4.4 Chloride 101 Carbon Dioxide 30 H Anion Gap 12 BUN 12 Creatinine 0.79 Estim Creat Clear Calc 116.4 Estimated GFR > 60 POC Glucose 170 H 174 H Random Glucose 158 H Calcium 8.5 Magnesium 1.8 11/23/22 11/23/22 11/23/22 10:46 16:05 19:53 WBC RBC Hgb Hct MCV MCH MCHC RDW Plt Count MPV Immature Gran % (Auto) Neut % (Auto) Lymph % (Auto) [place] % (Auto) Eos % (Auto) Baso % (Auto) Lymph # (Auto) [place] # (Auto) Eos # (Auto) Baso # (Auto) Abs Immat Gran (auto) Absolute Neuts (auto) Absolute Nucleated RBC Nucleated RBC % (auto) Sodium Potassium Chloride Carbon Dioxide Anion Gap BUN Creatinine Estim Creat Clear Calc Estimated GFR POC Glucose 194 H 151 H 138 H Random Glucose Calcium Magnesium 11/24/22 11/24/22 11/24/22 05:34 07:43 11:14 WBC 9.6 RBC 4.22 L Hgb 13.3 L Hct 39.5 L MCV 93.6 MCH 31.5 MCHC 33.7 RDW 13.6 Plt Count 109 L MPV 11.4 Immature Gran % (Auto) 0.3 Neut % (Auto) 64.1 Lymph % (Auto) 23.4 [place] % (Auto) 7.2 Eos % (Auto) 4.3 H Baso % (Auto) 0.7 Lymph # (Auto) 2.2 [place] # (Auto) 0.7 Eos # (Auto) 0.4 Baso # (Auto) 0.1 Abs Immat Gran (auto) 0.03 Absolute Neuts (auto) 6.2 Absolute Nucleated RBC 0.000 Nucleated RBC % (auto) 0.0 Sodium Potassium Chloride Carbon Dioxide Anion Gap BUN Creatinine Estim Creat Clear Calc Estimated GFR POC Glucose 133 H 127 H Random Glucose Calcium Magnesium Imaging Radiology Impressions: ITS Impressions Head CT 11/22/22 12:15 IMPRESSION: No acute hemorrhage, mass effect or shift. No acute intracranial pathology. This critical result was discussed with Tala Figueroa at 12:26 PM hours on 11/22/2022. It was ascertained that the content and urgency of the report was understood at the time of direct communication. Mental Status Exam Mental Status Exam Patient Appearance: Appropriate (Tremulous) Thought Process: Intact Thought Content: positive for Intact Judgement: Fair Medications Medications Current Medications Acetaminophen (Acetaminophen 325 Mg Tablet) 650 mg PO Q6H PRN PRN Reason: Pain, Mild (Pain Scale 1-3) Last Admin: 11/24/22 03:55 Dose: 650 mg Acyclovir (Acyclovir 200 Mg Capsule) 400 mg PO BID [facility] Last Admin: 11/24/22 09:06 Dose: 400 mg Atorvastatin Calcium (Atorvastatin Calcium 10 Mg Tablet) 10 mg PO BEDTIME [facility] Last Admin: 11/23/22 20:33 Dose: 10 mg Buprenorphine/Naloxone (Buprenorphine/Naloxone 2/0.5mg Film) 1 film SUBLINGUAL DAILY [facility] Last Admin: 11/24/22 09:07 Dose: 1 film Buprenorphine/Naloxone (Buprenorphine/Naloxone 8/2 Mg Film) 2 film BUCCAL DAILY [facility] Last Admin: 11/24/22 09:07 Dose: 2 film Buspirone HCl (Buspirone Hcl 5 Mg Tablet) 5 mg PO BID [facility] Last Admin: 11/24/22 09:06 Dose: 5 mg Calcium Carbonate (Calcium Carbonate 750 Mg Tab.Chew) 750 mg PO Q6H PRN PRN Reason: Heartburn Last Admin: 11/24/22 02:45 Dose: 750 mg Dextrose (Dextrose 50 % 25 Gm/50 Ml Syringe) 25 gm IVPUSH Q15M PRN; Protocol PRN Reason: per Hypoglycemia Standing Ord. Docusate Sodium (Docusate Sodium 100 Mg Capsule) 100 mg PO DAILY PRN PRN Reason: Constipation Duloxetine HCl (Duloxetine Hcl 60 Mg Capsule.Dr) 60 mg PO DAILY [facility] Last Admin: 11/24/22 09:06 Dose: 60 mg Finasteride (Finasteride 5 Mg Tablet) 5 mg PO DAILY [facility] Last Admin: 11/24/22 09:06 Dose: 5 mg Folic Acid (Folic Acid 1 Mg Tablet) 1 mg PO DAILY [facility] Last Admin: 11/24/22 09:06 Dose: 1 mg Gabapentin (Gabapentin 400 Mg Capsule) 1,200 mg PO TID [facility] Last Admin: 11/24/22 09:05 Dose: 1,200 mg Glucose (Glucose Gel 15 Gm Gel..Gram.) 15 gm PO Q15M PRN; Protocol PRN Reason: per Hypoglycemia Standing Ord. Hydroxyzine HCl (Hydroxyzine Hcl 25 Mg Tablet) 25 mg PO BEDTIME [facility] Last Admin: 11/22/22 19:58 Dose: 25 mg Insulin Human Lispro (Insulin Lispro 100 Unit/Ml 3 Ml Vial) 0.1 - 10 unit SUBCUT QIDACHS [facility]; Protocol Last Admin: 11/24/22 11:35 Dose: Not Given Lisinopril (Lisinopril 2.5 Mg Tablet) 2.5 mg PO DAILY [facility]; Protocol Last Admin: 11/24/22 09:06 Dose: 2.5 mg Magnesium Oxide (Magnesium Oxide 400 Mg Tablet) 400 mg PO BIDPC [facility] Last Admin: 11/24/22 09:06 Dose: 400 mg Melatonin (Melatonin 3 Mg Tablet) 9 mg PO BEDTIME [facility] Last Admin: 11/23/22 20:30 Dose: 9 mg Metoprolol Succinate (Metoprolol Succinate Er 25 Mg Tab.Er.24h) 25 mg PO BEDTIME [facility]; Protocol Last Admin: 11/23/22 20:35 Dose: 25 mg Multivitamins/Vitamin C (Multivitamin Tablet) 1 tab PO DAILY [facility] Last Admin: 11/24/22 09:06 Dose: 1 tab Nicotine (Nicotine 21 Mg Patch.Td24) 21 mg TRANSDERMA DAILY [facility] Last Admin: 11/24/22 09:06 Dose: 21 mg Nicotine Polacrilex (Nicotine Polacrilex 2 Mg Gum) 2 mg BUCCAL Q2H PRN PRN Reason: Nicotine Cravings Ondansetron HCl (Ondansetron Hcl 4 Mg/2 Ml Vial) 4 mg IVPUSH Q8H PRN PRN Reason: Nausea and Vomiting Pharmacy Consult (Consult Rx Etoh Phenob Im/Po) 1 each MISCELLANE ONCE PRN; Protocol PRN Reason: Consult order Phenobarbital (Phenobarbital 30 Mg Tablet) 30 mg PO BID [facility]; Protocol Stop: 11/25/22 21:01 Last Admin: 11/24/22 09:05 Dose: 30 mg Phenobarbital (Phenobarbital 15 Mg Tablet) 15 mg PO DAILY [facility]; Protocol Stop: 11/27/22 09:01 Polyethylene Glycol (Polyethylene Glycol 3350 17 Gm Powd.Pack) 17 gm PO DAILY [facility] Last Admin: 11/24/22 09:06 Dose: 17 gm Senna/Docusate Sodium (Sennosides/Docusate Sodium Tablet) 2 tab PO BEDTIME [facility] Last Admin: 11/23/22 20:28 Dose: 2 tab Sodium Chloride (0.9 % Sodium Chloride Flush 3 Ml Syringe) 3 ml IVFLUSH QSHIFT [facility] Last Admin: 11/24/22 09:07 Dose: 3 ml Tamsulosin HCl (Tamsulosin Hcl 0.4 Mg Capsule) 0.4 mg PO BID [facility] Last Admin: 11/24/22 09:05 Dose: 0.4 mg Thiamine HCl (Thiamine Hcl 100 Mg Tablet) 100 mg PO DAILY [facility] Last Admin: 11/24/22 09:06 Dose: 100 mg Allergies Allergies Allergy/AdvReac Type Severity Reaction Status Date / Time No Known Allergies Allergy Verified 11/21/22 15:02 Assessment & Plan Assessment & Plan (1) Alcohol use disorder, severe, dependence: Status: Acute Code(s): F10.20 - Alcohol dependence, uncomplicated Assessment and Plan: Patient declines any additional supports as he already has several supports place per his report. Denies any thoughts of self-harm or suicidal ideation No follow-up indicated at this time Total time managing care of this patient today _35___ minutes. PMFSH Past Medical History Medical History (Updated 11/24/22 @ 12:07 by Tash iY CNP) Hyperlipidemia Depression with anxiety Diabetes Hypertension Social History Social History Household Members Other:: Self with a dog{ Parker} Housing: House Do you presently have visiting nurse or other home services: No Alcohol intake: current Alcohol intake frequency: 3 or more drinks per day Alcohol type: hard liquor Patient Tobacco Use Status: Former Tobacco user Substance Use Type: Marijuana service: Yes
--- NOTE | 2022-11-24 14:45 | P.PNIM_ITS ---
Subjective Subjective Date of Service: 11/24/22 Interval History: seen and examined this morning follow up for alcohol withdrawal feeling better, still a little shaky no chest pain or sob Review of Systems Review of Systems: Yes all other systems are reviewed and are negative Constitutional Constitutional: Denies chills and Denies fever(s) Cardiovascular Cardiovascular: Denies chest pain, Denies palpitations and Denies dyspnea Respiratory Respiratory: Denies cough and Denies dyspnea Gastrointestinal Gastrointestinal: Denies abdominal pain Endocrine Endocrine: Denies palpitations Physical Exam 2 Vital Signs: Vital Signs: Last Vital Signs Temp 96.9 F 11/24/22 07:15 Pulse 78 11/24/22 07:15 Resp 18 11/24/22 07:15 BP 134/82 11/24/22 07:15 Pulse Ox 90 L 11/24/22 07:15 O2 Del Method Room Air 11/24/22 07:15 O2 Flow Rate 1 11/23/22 19:16 BMI result Body Mass Index 34.3 Const: General: cooperative, comfortable, no acute distress, alert and awake Nutritional Appearance: overweight Orientation/consciousness: patient oriented x3 Resp: Effort & Inspection: normal respiratory effort, able to speak in complete sentences, no respiratory distress and no use of accessory muscles Cardio: Rate: regular rate Heart sounds: S1 normal heart sound present and S2 normal heart sound present GI: Inspection: No distended Palpation (GI): Soft to palpation and nontender Neuro: General: patient oriented x3, moves all extremities and CN's II-XI intact bilaterally Extrem: General: Yes no pedal edema Objective Data Active Medications Acetaminophen (Acetaminophen 325 Mg Tablet) 650 mg PO Q6H PRN PRN Reason: Pain, Mild (Pain Scale 1-3) Last Admin: 11/24/22 03:55 Dose: 650 mg Documented By: WEN Acyclovir (Acyclovir 200 Mg Capsule) 400 mg PO BID [facility] Last Admin: 11/24/22 09:06 Dose: 400 mg Documented By: NORA Atorvastatin Calcium (Atorvastatin Calcium 10 Mg Tablet) 10 mg PO BEDTIME [facility] Last Admin: 11/23/22 20:33 Dose: 10 mg Documented By: WEN Buprenorphine/Naloxone (Buprenorphine/Naloxone 2/0.5mg Film) 1 film SUBLINGUAL DAILY [facility] Last Admin: 11/24/22 09:07 Dose: 1 film Documented By: NORA Buprenorphine/Naloxone (Buprenorphine/Naloxone 8/2 Mg Film) 2 film BUCCAL DAILY [facility] Last Admin: 11/24/22 09:07 Dose: 2 film Documented By: NORA Buspirone HCl (Buspirone Hcl 5 Mg Tablet) 5 mg PO BID [facility] Last Admin: 11/24/22 09:06 Dose: 5 mg Documented By: NORA Calcium Carbonate (Calcium Carbonate 750 Mg Tab.Chew) 750 mg PO Q6H PRN PRN Reason: Heartburn Last Admin: 11/24/22 02:45 Dose: 750 mg Documented By: WEN Dextrose (Dextrose 50 % 25 Gm/50 Ml Syringe) 25 gm IVPUSH Q15M PRN; Protocol PRN Reason: per Hypoglycemia Standing Ord. Docusate Sodium (Docusate Sodium 100 Mg Capsule) 100 mg PO DAILY PRN PRN Reason: Constipation Duloxetine HCl (Duloxetine Hcl 60 Mg Capsule.Dr) 60 mg PO DAILY [facility] Last Admin: 11/24/22 09:06 Dose: 60 mg Documented By: NORA Finasteride (Finasteride 5 Mg Tablet) 5 mg PO DAILY [facility] Last Admin: 11/24/22 09:06 Dose: 5 mg Documented By: NORA Folic Acid (Folic Acid 1 Mg Tablet) 1 mg PO DAILY [facility] Last Admin: 11/24/22 09:06 Dose: 1 mg Documented By: NORA Gabapentin (Gabapentin 400 Mg Capsule) 1,200 mg PO TID [facility] Last Admin: 11/24/22 09:05 Dose: 1,200 mg Documented By: NORA Glucose (Glucose Gel 15 Gm Gel..Gram.) 15 gm PO Q15M PRN; Protocol PRN Reason: per Hypoglycemia Standing Ord. Hydroxyzine HCl (Hydroxyzine Hcl 25 Mg Tablet) 25 mg PO BEDTIME [facility] Last Admin: 11/22/22 19:58 Dose: 25 mg Documented By: JOSE L Insulin Human Lispro (Insulin Lispro 100 Unit/Ml 3 Ml Vial) 0.1 - 10 unit SUBCUT QIDACHS [facility]; Protocol Last Admin: 11/24/22 11:35 Dose: Not Given Documented By: NORA Non-Admin Reason: No Insulin Coverage Lisinopril (Lisinopril 2.5 Mg Tablet) 2.5 mg PO DAILY [facility]; Protocol Last Admin: 11/24/22 09:06 Dose: 2.5 mg Documented By: NORA Magnesium Oxide (Magnesium Oxide 400 Mg Tablet) 400 mg PO BIDPC [facility] Last Admin: 11/24/22 09:06 Dose: 400 mg Documented By: NORA Melatonin (Melatonin 3 Mg Tablet) 9 mg PO BEDTIME [facility] Last Admin: 11/23/22 20:30 Dose: 9 mg Documented By: WEN Metoprolol Succinate (Metoprolol Succinate Er 25 Mg Tab.Er.24h) 25 mg PO BEDTIME [facility]; Protocol Last Admin: 11/23/22 20:35 Dose: 25 mg Documented By: WEN Multivitamins/Vitamin C (Multivitamin Tablet) 1 tab PO DAILY [facility] Last Admin: 11/24/22 09:06 Dose: 1 tab Documented By: NORA Nicotine (Nicotine 21 Mg Patch.Td24) 21 mg TRANSDERMA DAILY [facility] Last Admin: 11/24/22 09:06 Dose: 21 mg Documented By: NORA Nicotine Polacrilex (Nicotine Polacrilex 2 Mg Gum) 2 mg [place]CC[place] Q2H PRN PRN Reason: Nicotine Cravings Ondansetron HCl (Ondansetron Hcl 4 Mg/2 Ml Vial) 4 mg IVPUSH Q8H PRN PRN Reason: Nausea and Vomiting Pharmacy Consult (Consult Rx Etoh Phenob Im/Po) 1 each MISCELLANE ONCE PRN; Protocol PRN Reason: Consult order Phenobarbital (Phenobarbital 30 Mg Tablet) 30 mg PO BID [facility]; Protocol Stop: 11/25/22 21:01 Last Admin: 11/24/22 09:05 Dose: 30 mg Documented By: NORA Phenobarbital (Phenobarbital 15 Mg Tablet) 15 mg PO DAILY [facility]; Protocol Stop: 11/27/22 09:01 Polyethylene Glycol (Polyethylene Glycol 3350 17 Gm Powd.Pack) 17 gm PO DAILY [facility] Last Admin: 11/24/22 09:06 Dose: 17 gm Documented By: NORA Senna/Docusate Sodium (Sennosides/Docusate Sodium Tablet) 2 tab PO BEDTIME [facility] Last Admin: 11/23/22 20:28 Dose: 2 tab Documented By: WEN Sodium Chloride (0.9 % Sodium Chloride Flush 3 Ml Syringe) 3 ml IVFLUSH QSHIFT [facility] Last Admin: 11/24/22 09:07 Dose: 3 ml Documented By: NORA Tamsulosin HCl (Tamsulosin Hcl 0.4 Mg Capsule) 0.4 mg PO BID [facility] Last Admin: 11/24/22 09:05 Dose: 0.4 mg Documented By: NORA Thiamine HCl (Thiamine Hcl 100 Mg Tablet) 100 mg PO DAILY [facility] Last Admin: 11/24/22 09:06 Dose: 100 mg Documented By: NORA Labs 11/24/22 05:34 11/23/22 05:22 Labs: Laboratory Results - last 24 hr 11/23/22 11/23/22 11/24/22 16:05 19:53 05:34 MCV 93.6 MCH 31.5 MCHC 33.7 RDW 13.6 Plt Count 109 L MPV 11.4 Immature Gran % (Auto) 0.3 Neut % (Auto) 64.1 Lymph % (Auto) 23.4 [place] % (Auto) 7.2 Eos % (Auto) 4.3 H Baso % (Auto) 0.7 Lymph # (Auto) 2.2 [place] # (Auto) 0.7 Eos # (Auto) 0.4 Baso # (Auto) 0.1 Abs Immat Gran (auto) 0.03 Absolute Neuts (auto) 6.2 Absolute Nucleated RBC 0.000 Nucleated RBC % (auto) 0.0 POC Glucose 151 H 138 H 11/24/22 11/24/22 07:43 11:14 MCV MCH MCHC RDW Plt Count MPV Immature Gran % (Auto) Neut % (Auto) Lymph % (Auto) [place] % (Auto) Eos % (Auto) Baso % (Auto) Lymph # (Auto) [place] # (Auto) Eos # (Auto) Baso # (Auto) Abs Immat Gran (auto) Absolute Neuts (auto) Absolute Nucleated RBC Nucleated RBC % (auto) POC Glucose 133 H 127 H Assessment and Plan (1) Alcohol abuse with withdrawal: Status: Acute Plan This is a 62-year-old male past medical history of alcohol abuse comes into the hospital for detox found to be in alcohol withdrawal alcohol dependence with acute alcohol withdrawal continue phenobarb protocol continue thiamine and folic acid follow CIWA seen by addiction medicine, has outpatient support/resources suicidal ideation endorsed self-harm on admission - likely while intoxicated - does not endorse any SI at this time seen by care team, cleared, sitter d/c and does not meet criteria for inpatient psych concern over left side droop brain CT negative seen by neuro, no deficits appreciated and no further work up recommended no focal deficits appreciated at this time hypertension stable continue lisinopril, metoprolol thrombocytopenia r/t etoh use trending down slightly, will d/c lovenox follow cbc Diabetes hold oral antihyperglycemics low-dose sliding scale insulin mood continue home meds bph continue flomax, proscar h/o opiate dependence continue suboxone nitcotine dependence smoking cessation advised NRT DVT prophylaxis: lovenox d/c for thrombocytopenia, patient ambulating in [facility] attending - dr. Pedroza requires ongoing inpatient stay for close monitoring for alcohol withdrawal Time Spent With Patient Time: Total time managing care of this patient today ____ minutes. Quality Stroke Does the patient have a stroke diagnosis?: No VTE Prior VTE?: No VTE Risk Level:: Medical - low VTE Device Contraindication: Treatment Not Indicated VTE Drug Contraindication: Treatment Not Indicated
[2022-11-24] MEDS: Nicotine Polacrilex 2 MG GUM BUCCAL ×2 (14:49→19:26)
[2022-11-24 15:23] VITALS: BP 172/82; PULSE 79; RESP 20; TEMP 36; O2SAT 92
[2022-11-24 16:12] LABS: Glucose, Whole Blood 143 mg/dL (60-115)
[2022-11-24] MEDS: hydrOXYzine HCL 25 MG TABLET PO ×2 (16:43→19:26)
[2022-11-24] MEDS: Melatonin 3 MG TABLET 9 MG PO (19:26)
[2022-11-24] MEDS: Sennosides/Docusate Sodium TABLET 2 TAB PO (19:27)
[2022-11-24] MEDS: Metoprolol Succinate ER 25 MG TAB.ER.24H PO (19:29)
[2022-11-24] MEDS: Atorvastatin Calcium 10 MG TABLET PO (19:29)
[2022-11-24 20:00] VITALS: BP 141/83; PULSE 89; RESP 18; TEMP 36.4; O2SAT 94
[2022-11-24] MEDS: PHENobarbitaL sodium 130 MG/ML VIAL IM (20:06)
[2022-11-24] MEDS: traZODone HCL 50 MG TABLET 150 MG PO (20:06)
[2022-11-24 20:30] LABS: Glucose, Whole Blood 151 mg/dL (60-115)
[2022-11-24] MEDS: Insulin Lispro 100 UNIT/ML 3 ML VIAL SUBCUT (20:39)
--- NOTE | 2022-11-24 22:24 | PC.NURSE ---
Addendum entered by Jenniffer Cantu RN 11/25/22 06:24: pt in room 369 had a CIWA of 19. Dr. Keita was notified. She ordered Pt Im Phenobarbital once. Pt was reassessed and CIWA was 1. He said that he felt much better after taking phenobarbital and trazadone. Original Note: pt in room 369 stated that he takes 3 trazadone at bedtime at home. Dr. Bloom was notified, she ordered PO trazadone. When assessed, Pt stated that he felt much better and was able to rest.
[2022-11-25 03:41] VITALS: BP 125/78; PULSE 63; RESP 18; TEMP 36.3; O2SAT 94
[2022-11-25] MEDS: Nicotine Polacrilex 2 MG GUM BUCCAL ×5 (03:46→21:12)
[2022-11-25 06:23] LABS: Anion Gap 9 (12-20); Blood Urea Nitrogen 15 mg/dL (9-16); Calcium 9.4 mg/dL (8.4-10.2); Carbon Dioxide 28 mmol/L (22-29); Chloride 105 mmol/L (96-108); Creatinine Clr Calc Pharmacy 127.7; Estimated Glomerular Filt Rate > 60; Glucose Random 117 mg/dL (60-115); Potassium 4.2 mmol/L (3.3-5.1); Sodium 138 mmol/L (135-145)
[2022-11-25 07:42] VITALS: BP 134/80; PULSE 63; RESP 16; TEMP 36; O2SAT 94
[2022-11-25 07:51] LABS: Glucose, Whole Blood 111 mg/dL (60-115)
[2022-11-25] MEDS: Gabapentin 400 MG CAPSULE 1200 MG PO ×3 (08:18→21:11)
[2022-11-25] MEDS: Tamsulosin HCL 0.4 MG CAPSULE PO ×2 (08:18→21:13)
[2022-11-25] MEDS: DULoxetine HCl 60 MG CAPSULE.DR PO (08:18)
[2022-11-25] MEDS: lisinopriL 2.5 MG TABLET PO (08:18)
[2022-11-25] MEDS: Thiamine HCL 100 MG TABLET PO (08:18)
[2022-11-25] MEDS: Acyclovir 200 MG CAPSULE 400 MG PO ×2 (08:18→21:13)
[2022-11-25] MEDS: Folic Acid 1 MG TABLET PO (08:18)
[2022-11-25] MEDS: PHENobarbitaL 30 MG TABLET PO ×2 (08:19→21:12)
[2022-11-25] MEDS: polyethylene glycoL 3350 17 GM POWD.PACK PO (08:19)
[2022-11-25] MEDS: busPIRone HCl 5 MG TABLET PO ×2 (08:19→21:11)
[2022-11-25] MEDS: Buprenorphine/Naloxone 2/0.5mg FILM 1 FILM SUBLINGUAL (08:19)
[2022-11-25] MEDS: Buprenorphine/Naloxone 8/2 mg FILM 2 FILM BUCCAL (08:19)
[2022-11-25] MEDS: Magnesium Oxide 400 MG TABLET PO ×2 (08:19→17:52)
[2022-11-25] MEDS: Multivitamin TABLET 1 TAB PO (08:19)
[2022-11-25] MEDS: Finasteride 5 MG TABLET PO (08:19)
[2022-11-25 08:37] LABS: Anion Gap 10 (12-20); Blood Urea Nitrogen 15 mg/dL (9-16); Calcium 9.3 mg/dL (8.4-10.2); Carbon Dioxide 27 mmol/L (22-29); Chloride 105 mmol/L (96-108); Creatinine Clr Calc Pharmacy 129.5; Estimated Glomerular Filt Rate > 60; Glucose Random 116 mg/dL (60-115); Potassium 4.2 mmol/L (3.3-5.1); Sodium 138 mmol/L (135-145)
[2022-11-25] MEDS: 0.9 % Sodium Chloride Flush 3 ML SYRINGE IVFLUSH ×3 (09:43→19:31)
[2022-11-25] MEDS: Famotidine/PF 20 MG/2 ML VIAL IVPUSH (10:56)
[2022-11-25 11:16] LABS: Glucose, Whole Blood 174 mg/dL (60-115)
[2022-11-25] MEDS: PHENobarbitaL sodium 130 MG/ML VIAL IM (11:29)
[2022-11-25] MEDS: Insulin Lispro 100 UNIT/ML 3 ML VIAL SUBCUT ×2 (11:30→17:50)
--- NOTE | 2022-11-25 12:17 | HO.PM.IMPN ---
Subjective Subjective Date of Service: 11/25/22 Interval History: seen and examined this morning follow up for alcohol withdrawal scoring 19 on ciwa overnight, got extra dose of IM phenobarbitol still somewhat anxious, shaky this morning Review of Systems Review of Systems: Yes all other systems are reviewed and are negative Constitutional Constitutional: Denies chills and Denies fever(s) Cardiovascular Cardiovascular: Denies chest pain, Denies palpitations and Denies dyspnea Respiratory Respiratory: Denies cough and Denies dyspnea Gastrointestinal Gastrointestinal: Denies abdominal pain, Denies nausea and Denies vomiting Endocrine Endocrine: Denies palpitations Physical Exam Vital Signs: Vital Signs: Last Vital Signs Temp 96.8 F 11/25/22 07:42 Pulse 63 11/25/22 07:42 Resp 16 11/25/22 07:42 BP 134/80 11/25/22 07:42 Pulse Ox 94 11/25/22 07:42 O2 Del Method Room Air 11/25/22 07:42 O2 Flow Rate 1 11/23/22 19:16 BMI result Body Mass Index 34.3 Const: Other: mildly tremulous General: cooperative, alert and awake Nutritional Appearance: overweight Orientation/consciousness: patient oriented x3 Resp: Effort & Inspection: normal respiratory effort, able to speak in complete sentences, no respiratory distress and no use of accessory muscles Auscultation: clear to auscultation bilaterally Cardio: Rate: regular rate Heart sounds: S1 normal heart sound present and S2 normal heart sound present GI: Inspection: No distended Palpation (GI): Soft to palpation and nontender Neuro: General: patient oriented x3, moves all extremities and CN's II-XI intact bilaterally Extrem: General: Yes no pedal edema Objective Data Active Medications Acetaminophen (Acetaminophen 325 Mg Tablet) 650 mg PO Q6H PRN PRN Reason: Pain, Mild (Pain Scale 1-3) Last Admin: 11/24/22 03:55 Dose: 650 mg Documented By: WEN Acyclovir (Acyclovir 200 Mg Capsule) 400 mg PO BID [facility] Last Admin: 11/25/22 08:18 Dose: 400 mg Documented By: NORA Atorvastatin Calcium (Atorvastatin Calcium 10 Mg Tablet) 10 mg PO BEDTIME [facility] Last Admin: 11/24/22 19:29 Dose: 10 mg Documented By: WEN Buprenorphine/Naloxone (Buprenorphine/Naloxone 2/0.5mg Film) 1 film SUBLINGUAL DAILY [facility] Last Admin: 11/25/22 08:19 Dose: 1 film Documented By: NORA Buprenorphine/Naloxone (Buprenorphine/Naloxone 8/2 Mg Film) 2 film BUCCAL DAILY [facility] Last Admin: 11/25/22 08:19 Dose: 2 film Documented By: NORA Buspirone HCl (Buspirone Hcl 5 Mg Tablet) 5 mg PO BID [facility] Last Admin: 11/25/22 08:19 Dose: 5 mg Documented By: NORA Calcium Carbonate (Calcium Carbonate 750 Mg Tab.Chew) 750 mg PO Q6H PRN PRN Reason: Heartburn Last Admin: 11/24/22 02:45 Dose: 750 mg Documented By: WEN Dextrose (Dextrose 50 % 25 Gm/50 Ml Syringe) 25 gm IVPUSH Q15M PRN; Protocol PRN Reason: per Hypoglycemia Standing Ord. Docusate Sodium (Docusate Sodium 100 Mg Capsule) 100 mg PO DAILY PRN PRN Reason: Constipation Duloxetine HCl (Duloxetine Hcl 60 Mg Capsule.Dr) 60 mg PO DAILY [facility] Last Admin: 11/25/22 08:18 Dose: 60 mg Documented By: NORA Famotidine (Famotidine/Pf 20 Mg/2 Ml Vial) 20 mg IVPUSH DAILY [facility] Last Admin: 11/25/22 10:56 Dose: 20 mg Documented By: NORA Finasteride (Finasteride 5 Mg Tablet) 5 mg PO DAILY [facility] Last Admin: 11/25/22 08:19 Dose: 5 mg Documented By: NORA Folic Acid (Folic Acid 1 Mg Tablet) 1 mg PO DAILY [facility] Last Admin: 11/25/22 08:18 Dose: 1 mg Documented By: NORA Gabapentin (Gabapentin 400 Mg Capsule) 1,200 mg PO TID [facility] Last Admin: 11/25/22 08:18 Dose: 1,200 mg Documented By: NORA Glucose (Glucose Gel 15 Gm Gel..Gram.) 15 gm PO Q15M PRN; Protocol PRN Reason: per Hypoglycemia Standing Ord. Hydroxyzine HCl (Hydroxyzine Hcl 25 Mg Tablet) 25 mg PO BEDTIME [facility] Last Admin: 11/24/22 19:26 Dose: 25 mg Documented By: WEN Hydroxyzine HCl (Hydroxyzine Hcl 25 Mg Tablet) 25 mg PO Q8H PRN PRN Reason: Anxiety Last Admin: 11/24/22 16:43 Dose: 25 mg Documented By: BENNETT Insulin Human Lispro (Insulin Lispro 100 Unit/Ml 3 Ml Vial) 0.1 - 10 unit SUBCUT QIDACHS [facility]; Protocol Last Admin: 11/25/22 11:30 Dose: 2 unit Documented By: NORA Lisinopril (Lisinopril 2.5 Mg Tablet) 2.5 mg PO DAILY [facility]; Protocol Last Admin: 11/25/22 08:18 Dose: 2.5 mg Documented By: NORA Magnesium Oxide (Magnesium Oxide 400 Mg Tablet) 400 mg PO BIDPC [facility] Last Admin: 11/25/22 08:19 Dose: 400 mg Documented By: NORA Melatonin (Melatonin 3 Mg Tablet) 9 mg PO BEDTIME [facility] Last Admin: 11/24/22 19:26 Dose: 9 mg Documented By: WEN Metoprolol Succinate (Metoprolol Succinate Er 25 Mg Tab.Er.24h) 25 mg PO BEDTIME [facility]; Protocol Last Admin: 11/24/22 19:29 Dose: 25 mg Documented By: WEN Multivitamins/Vitamin C (Multivitamin Tablet) 1 tab PO DAILY [facility] Last Admin: 11/25/22 08:19 Dose: 1 tab Documented By: NORA Nicotine (Nicotine 21 Mg Patch.Td24) 21 mg TRANSDERMA DAILY [facility] Last Admin: 11/25/22 08:47 Dose: Not Given Documented By: NORA Non-Admin Reason: Patient Refused Nicotine Polacrilex (Nicotine Polacrilex 2 Mg Gum) 2 mg BUCCAL Q2H PRN PRN Reason: Nicotine Cravings Last Admin: 11/25/22 08:25 Dose: 2 mg Documented By: NORA Pharmacy Consult (Consult Rx Etoh Phenob Im/Po) 1 each MISCELLANE ONCE PRN; Protocol PRN Reason: Consult order Phenobarbital (Phenobarbital 30 Mg Tablet) 30 mg PO BID [facility]; Protocol Stop: 11/25/22 21:01 Last Admin: 11/25/22 08:19 Dose: 30 mg Documented By: NORA Phenobarbital (Phenobarbital 15 Mg Tablet) 15 mg PO DAILY [facility]; Protocol Stop: 11/27/22 09:01 Polyethylene Glycol (Polyethylene Glycol 3350 17 Gm Powd.Pack) 17 gm PO DAILY [facility] Last Admin: 11/25/22 08:19 Dose: 17 gm Documented By: NORA Senna/Docusate Sodium (Sennosides/Docusate Sodium Tablet) 2 tab PO BEDTIME [facility] Last Admin: 11/24/22 19:27 Dose: 2 tab Documented By: WEN Sodium Chloride (0.9 % Sodium Chloride Flush 3 Ml Syringe) 3 ml IVFLUSH QSHIFT [facility] Last Admin: 11/25/22 09:43 Dose: 3 ml Documented By: NORA Tamsulosin HCl (Tamsulosin Hcl 0.4 Mg Capsule) 0.4 mg PO BID [facility] Last Admin: 11/25/22 08:18 Dose: 0.4 mg Documented By: NORA Thiamine HCl (Thiamine Hcl 100 Mg Tablet) 100 mg PO DAILY [facility] Last Admin: 11/25/22 08:18 Dose: 100 mg Documented By: NORA Trazodone HCl (Trazodone Hcl 50 Mg Tablet) 150 mg PO BEDTIME [facility] Last Admin: 11/24/22 20:06 Dose: 150 mg Documented By: WEN Labs 11/24/22 05:34 11/25/22 07:48 Labs: Laboratory Results - last 24 hr 11/24/22 11/24/22 11/25/22 16:03 20:27 05:39 Anion Gap 9 L Estim Creat Clear Calc 127.7 Estimated GFR > 60 POC Glucose 143 H 151 H Random Glucose 117 H Calcium 9.4 D 11/25/22 11/25/22 11/25/22 07:45 07:48 11:10 Anion Gap 10 L Estim Creat Clear Calc 129.5 Estimated GFR > 60 POC Glucose 111 174 H Random Glucose 116 H Calcium 9.3 Assessment and Plan (1) Alcohol use disorder, severe, dependence: Status: Acute (2) Alcohol abuse with withdrawal: Status: Acute Plan This is a 62-year-old male past medical history of alcohol abuse comes into the hospital for detox found to be in alcohol withdrawal, in the ED noted to have possible left sided facial droop since resolved and stroke ruled out, still with persistent withdrawal symptoms. alcohol dependence with acute alcohol withdrawal continue phenobarb protocol continue thiamine and folic acid follow CIWA, scoring high overnight - received extra dose of IM phenobarbitol last night, will give additional dose now as well. follow closely seen by addiction medicine, has outpatient support/resources suicidal ideation endorsed self-harm on admission - likely while intoxicated - does not endorse any SI at this time seen by care team, cleared, sitter d/c and does not meet criteria for inpatient psych concern over left side droop while in ED no other deficits were noted at that time brain CT negative seen by neuro, no deficits appreciated and no further work up recommended likely related to intoxication/sedation resolved, no focal deficits appreciated at this time hypertension stable continue lisinopril, metoprolol thrombocytopenia r/t etoh use trending down slightly, will d/c lovenox follow cbc Diabetes hold oral antihyperglycemics low-dose sliding scale insulin HAILEY uses nocturnal oxygen, CPAP mood continue home meds bph continue flomax, proscar h/o opiate dependence continue suboxone nitcotine dependence smoking cessation advised NRT DVT prophylaxis: lovenox d/c for thrombocytopenia, patient ambulating in hallway attending - dr. little requires ongoing inpatient stay for close monitoring for alcohol withdrawal Time Spent With Patient Time: Total time managing care of this patient today ____ minutes. Quality Stroke Does the patient have a stroke diagnosis?: No VTE Prior VTE?: No VTE Risk Level:: Medical - low VTE Device Contraindication: Treatment Not Indicated VTE Drug Contraindication: Treatment Not Indicated
[2022-11-25] MEDS: Nicotine 21 MG PATCH.TD24 TRANSDERMA (13:34)
[2022-11-25 15:47] VITALS: BP 144/79; PULSE 65; RESP 18; TEMP 36; O2SAT 94
[2022-11-25 16:17] LABS: Glucose, Whole Blood 165 mg/dL (60-115)
[2022-11-25] MEDS: hydrOXYzine HCL 25 MG TABLET PO ×2 (17:58→21:13)
[2022-11-25] MEDS: Acetaminophen 325 MG TABLET 650 MG PO (19:30)
[2022-11-25 19:48] VITALS: BP 132/83; PULSE 72; RESP 17; TEMP 36.1; O2SAT 95
[2022-11-25 20:34] LABS: Glucose, Whole Blood 116 mg/dL (60-115)
[2022-11-25] MEDS: Sennosides/Docusate Sodium TABLET 2 TAB PO (21:11)
[2022-11-25] MEDS: Melatonin 3 MG TABLET 9 MG PO (21:11)
[2022-11-25] MEDS: Atorvastatin Calcium 10 MG TABLET PO (21:12)
[2022-11-25] MEDS: traZODone HCL 50 MG TABLET 150 MG PO (21:12)
[2022-11-25] MEDS: Metoprolol Succinate ER 25 MG TAB.ER.24H PO (21:13)
--- NOTE | 2022-11-25 22:58 | PC.RT ---
CPAP unit in room set to ST mode / ; pt refusing for tonight
[2022-11-26 04:00] VITALS: BP 160/87; PULSE 65; RESP 18; TEMP 36.5; O2SAT 96
[2022-11-26] MEDS: Acetaminophen 325 MG TABLET 650 MG PO ×2 (05:48→16:21)
[2022-11-26] MEDS: Nicotine Polacrilex 2 MG GUM BUCCAL ×4 (05:48→19:36)
[2022-11-26 06:12] LABS: Hematocrit 43.2 % (42.0-52.0); Hemoglobin 14.9 g/dl (14.0-18.0); Mean Corpuscular HGB Conc 34.5 g/dl (31.0-36.0); Mean Corpuscular Hemoglobin 31.2 pg (27.0-33.0); Mean Corpuscular Volume 90.6 fL (80.0-98.0); Mean Platelet Volume 11.3 fL (9.4-12.4); Platelet Count 137 X10*3/uL (160-400); Red Blood Count 4.77 X10*6/uL (4.60-5.80); Red Cell Distribution Width 13.3 % (11.0-16.0); White Blood Count 7.3 X10*3/uL (4.8-10.8)
[2022-11-26 07:00] VITALS: BP 135/83; PULSE 64; RESP 18; TEMP 36.1; O2SAT 97
[2022-11-26 07:18] LABS: Glucose, Whole Blood 120 mg/dL (60-115)
[2022-11-26] MEDS: polyethylene glycoL 3350 17 GM POWD.PACK PO (08:27)
[2022-11-26] MEDS: Nicotine 21 MG PATCH.TD24 TRANSDERMA (08:28)
[2022-11-26] MEDS: Famotidine/PF 20 MG/2 ML VIAL IVPUSH (08:29)
[2022-11-26] MEDS: 0.9 % Sodium Chloride Flush 3 ML SYRINGE IVFLUSH (08:29)
[2022-11-26] MEDS: Acyclovir 200 MG CAPSULE 400 MG PO ×2 (08:30→21:07)
[2022-11-26] MEDS: PHENobarbitaL 15 MG TABLET PO (08:30)
[2022-11-26] MEDS: Tamsulosin HCL 0.4 MG CAPSULE PO ×2 (08:30→21:09)
[2022-11-26] MEDS: Magnesium Oxide 400 MG TABLET PO ×2 (08:30→17:24)
[2022-11-26] MEDS: lisinopriL 2.5 MG TABLET PO (08:30)
[2022-11-26] MEDS: Folic Acid 1 MG TABLET PO (08:30)
[2022-11-26] MEDS: DULoxetine HCl 60 MG CAPSULE.DR PO (08:30)
[2022-11-26] MEDS: busPIRone HCl 5 MG TABLET PO ×2 (08:30→21:09)
[2022-11-26] MEDS: Multivitamin TABLET 1 TAB PO (08:30)
[2022-11-26] MEDS: Gabapentin 400 MG CAPSULE 1200 MG PO ×3 (08:31→21:08)
[2022-11-26] MEDS: Buprenorphine/Naloxone 8/2 mg FILM 2 FILM BUCCAL (08:31)
[2022-11-26] MEDS: Finasteride 5 MG TABLET PO (08:31)
[2022-11-26] MEDS: Thiamine HCL 100 MG TABLET PO (08:31)
[2022-11-26] MEDS: Buprenorphine/Naloxone 2/0.5mg FILM 1 FILM SUBLINGUAL (08:31)
--- NOTE | 2022-11-26 11:16 | HO.PM.IMPN ---
Subjective Subjective Date of Service: 11/26/22 Interval History: seen and examined this morning follow up for alcohol withdrawal still somewhat anxious, shaky this morning Review of Systems Review of Systems: Yes all other systems are reviewed and are negative Constitutional Constitutional: Denies chills and Denies fever(s) Cardiovascular Cardiovascular: Denies chest pain, Denies palpitations and Denies dyspnea Respiratory Respiratory: Denies cough and Denies dyspnea Gastrointestinal Gastrointestinal: Denies abdominal pain, Denies nausea and Denies vomiting Endocrine Endocrine: Denies palpitations Physical Exam Vital Signs: Vital Signs: Last Vital Signs Temp 97 F 11/26/22 07:00 Pulse 64 11/26/22 07:00 Resp 18 11/26/22 07:00 BP 135/83 11/26/22 07:00 Pulse Ox 97 11/26/22 07:00 O2 Del Method Room Air 11/26/22 07:00 O2 Flow Rate 1 11/23/22 19:16 BMI result Body Mass Index 34.3 Appearing in no acute distress lung sounds are clear to auscultation heart regular rate rhythm, clear S1, S2 positive bowel sounds, abdomen is soft, nontender neuro patient is alert x3, no focal deficits Objective Data Active Medications Acetaminophen (Acetaminophen 325 Mg Tablet) 650 mg PO Q6H PRN PRN Reason: Pain, Mild (Pain Scale 1-3) Last Admin: 11/26/22 05:48 Dose: 650 mg Documented By: MILLIE Acyclovir (Acyclovir 200 Mg Capsule) 400 mg PO BID [facility] Last Admin: 11/26/22 08:30 Dose: 400 mg Documented By: HEBERT Atorvastatin Calcium (Atorvastatin Calcium 10 Mg Tablet) 10 mg PO BEDTIME [facility] Last Admin: 11/25/22 21:12 Dose: 10 mg Documented By: MILLIE Buprenorphine/Naloxone (Buprenorphine/Naloxone 2/0.5mg Film) 1 film SUBLINGUAL DAILY [facility] Last Admin: 11/26/22 08:31 Dose: 1 film Documented By: HEBERT Buprenorphine/Naloxone (Buprenorphine/Naloxone 8/2 Mg Film) 2 film BUCCAL DAILY [facility] Last Admin: 11/26/22 08:31 Dose: 2 film Documented By: HEBERT Buspirone HCl (Buspirone Hcl 5 Mg Tablet) 5 mg PO BID [facility] Last Admin: 11/26/22 08:30 Dose: 5 mg Documented By: HEBERT Calcium Carbonate (Calcium Carbonate 750 Mg Tab.Chew) 750 mg PO Q6H PRN PRN Reason: Heartburn Last Admin: 11/24/22 02:45 Dose: 750 mg Documented By: WEN Dextrose (Dextrose 50 % 25 Gm/50 Ml Syringe) 25 gm IVPUSH Q15M PRN; Protocol PRN Reason: per Hypoglycemia Standing Ord. Docusate Sodium (Docusate Sodium 100 Mg Capsule) 100 mg PO DAILY PRN PRN Reason: Constipation Duloxetine HCl (Duloxetine Hcl 60 Mg Capsule.Dr) 60 mg PO DAILY [facility] Last Admin: 11/26/22 08:30 Dose: 60 mg Documented By: HEBERT Famotidine (Famotidine/Pf 20 Mg/2 Ml Vial) 20 mg IVPUSH DAILY [facility] Last Admin: 11/26/22 08:29 Dose: 20 mg Documented By: HEBERT Finasteride (Finasteride 5 Mg Tablet) 5 mg PO DAILY [facility] Last Admin: 11/26/22 08:31 Dose: 5 mg Documented By: HEBERT Folic Acid (Folic Acid 1 Mg Tablet) 1 mg PO DAILY [facility] Last Admin: 11/26/22 08:30 Dose: 1 mg Documented By: HEBERT Gabapentin (Gabapentin 400 Mg Capsule) 1,200 mg PO TID [facility] Last Admin: 11/26/22 08:31 Dose: 1,200 mg Documented By: HEBERT Glucose (Glucose Gel 15 Gm Gel..Gram.) 15 gm PO Q15M PRN; Protocol PRN Reason: per Hypoglycemia Standing Ord. Hydroxyzine HCl (Hydroxyzine Hcl 25 Mg Tablet) 25 mg PO BEDTIME [facility] Last Admin: 11/25/22 21:13 Dose: 25 mg Documented By: MILLIE Hydroxyzine HCl (Hydroxyzine Hcl 25 Mg Tablet) 25 mg PO Q8H PRN PRN Reason: Anxiety Last Admin: 11/24/22 16:43 Dose: 25 mg Documented By: BENNETT Insulin Human Lispro (Insulin Lispro 100 Unit/Ml 3 Ml Vial) 0.1 - 10 unit SUBCUT QIDACHS [facility]; Protocol Last Admin: 11/26/22 07:53 Dose: Not Given Documented By: HEBERT Non-Admin Reason: No Insulin Coverage Lisinopril (Lisinopril 2.5 Mg Tablet) 2.5 mg PO DAILY [facility]; Protocol Last Admin: 11/26/22 08:30 Dose: 2.5 mg Documented By: HEBERT Magnesium Oxide (Magnesium Oxide 400 Mg Tablet) 400 mg PO BIDPC [facility] Last Admin: 11/26/22 08:30 Dose: 400 mg Documented By: HEBERT Melatonin (Melatonin 3 Mg Tablet) 9 mg PO BEDTIME [facility] Last Admin: 11/25/22 21:11 Dose: 9 mg Documented By: MILLIE Metoprolol Succinate (Metoprolol Succinate Er 25 Mg Tab.Er.24h) 25 mg PO BEDTIME [facility]; Protocol Last Admin: 11/25/22 21:13 Dose: 25 mg Documented By: MILLIE Multivitamins/Vitamin C (Multivitamin Tablet) 1 tab PO DAILY [facility] Last Admin: 11/26/22 08:30 Dose: 1 tab Documented By: HEBERT Nicotine (Nicotine 21 Mg Patch.Td24) 21 mg TRANSDERMA DAILY [facility] Last Admin: 11/26/22 08:28 Dose: 21 mg Documented By: HEBERT Nicotine Polacrilex (Nicotine Polacrilex 2 Mg Gum) 2 mg BUCCAL Q2H PRN PRN Reason: Nicotine Cravings Last Admin: 11/26/22 11:04 Dose: 2 mg Documented By: HEBERT Pharmacy Consult (Consult Rx Etoh Phenob Im/Po) 1 each MISCELLANE ONCE PRN; Protocol PRN Reason: Consult order Phenobarbital (Phenobarbital 15 Mg Tablet) 15 mg PO DAILY [facility]; Protocol Stop: 11/27/22 09:01 Last Admin: 11/26/22 08:30 Dose: 15 mg Documented By: HEBERT Polyethylene Glycol (Polyethylene Glycol 3350 17 Gm Powd.Pack) 17 gm PO DAILY [facility] Last Admin: 11/26/22 08:27 Dose: 17 gm Documented By: HEBERT Senna/Docusate Sodium (Sennosides/Docusate Sodium Tablet) 2 tab PO BEDTIME [facility] Last Admin: 11/25/22 21:11 Dose: 2 tab Documented By: MILLIE Sodium Chloride (0.9 % Sodium Chloride Flush 3 Ml Syringe) 3 ml IVFLUSH QSHIFT [facility] Last Admin: 11/26/22 08:29 Dose: 3 ml Documented By: HEBERT Tamsulosin HCl (Tamsulosin Hcl 0.4 Mg Capsule) 0.4 mg PO BID [facility] Last Admin: 11/26/22 08:30 Dose: 0.4 mg Documented By: HEBERT Thiamine HCl (Thiamine Hcl 100 Mg Tablet) 100 mg PO DAILY [facility] Last Admin: 11/26/22 08:31 Dose: 100 mg Documented By: HEBERT Trazodone HCl (Trazodone Hcl 50 Mg Tablet) 150 mg PO BEDTIME [facility] Last Admin: 11/25/22 21:12 Dose: 150 mg Documented By: MILLIE Labs 11/26/22 05:42 11/25/22 07:48 Labs: Laboratory Results - last 24 hr 11/25/22 11/25/22 11/25/22 11:10 16:06 20:27 MCV MCH MCHC RDW Plt Count MPV Absolute Nucleated RBC Nucleated RBC % (auto) POC Glucose 174 H 165 H 116 H 11/26/22 11/26/22 05:42 06:59 MCV 90.6 MCH 31.2 MCHC 34.5 RDW 13.3 Plt Count 137 L D MPV 11.3 Absolute Nucleated RBC 0.000 Nucleated RBC % (auto) 0.0 POC Glucose 120 H Assessment and Plan (1) Alcohol use disorder, severe, dependence: Status: Acute (2) Alcohol abuse with withdrawal: Status: Acute Plan This is a 62-year-old male past medical history of alcohol abuse comes into the hospital for detox found to be in alcohol withdrawal, in the ED noted to have possible left sided facial droop since resolved and stroke ruled out, still with persistent withdrawal symptoms. alcohol dependence with acute alcohol withdrawal continue phenobarb protocol continue thiamine and folic acid follow CIWA seen by addiction medicine, has outpatient support/resources suicidal ideation endorsed self-harm on admission - likely while intoxicated - does not endorse any SI at this time seen by care team, cleared, jus d/c and does not meet criteria for inpatient psych concern over left side droop while in ED no other deficits were noted at that time brain CT negative seen by neuro, no deficits appreciated and no further work up recommended likely related to intoxication/sedation resolved, no focal deficits appreciated at this time hypertension stable continue lisinopril, metoprolol thrombocytopenia r/t etoh use trending down slightly, will d/c lovenox follow cbc Diabetes hold oral antihyperglycemics low-dose sliding scale insulin HAILEY uses nocturnal oxygen, CPAP mood continue home meds bph continue flomax, proscar h/o opiate dependence continue suboxone nitcotine dependence smoking cessation advised NRT DVT prophylaxis: lovenox d/c for thrombocytopenia, patient ambulating in hallway attending - dr. Rice requires ongoing inpatient stay for close monitoring for alcohol withdrawal Time Spent With Patient Time: Total time managing care of this patient today ____ minutes. Quality Stroke Does the patient have a stroke diagnosis?: No VTE Prior VTE?: No VTE Risk Level:: Medical - low VTE Device Contraindication: Treatment Not Indicated VTE Drug Contraindication: Treatment Not Indicated
[2022-11-26 11:27] LABS: Glucose, Whole Blood 160 mg/dL (60-115)
[2022-11-26 16:00] VITALS: BP 151/81; PULSE 63; RESP 16; TEMP 36.2; O2SAT 95
[2022-11-26] MEDS: hydrOXYzine HCL 25 MG TABLET PO ×2 (16:21→21:07)
[2022-11-26 16:23] LABS: Glucose, Whole Blood 165 mg/dL (60-115)
[2022-11-26 19:29] VITALS: BP 157/86; PULSE 74; RESP 20; TEMP 36; O2SAT 93
[2022-11-26] MEDS: Sennosides/Docusate Sodium TABLET 2 TAB PO (21:08)
[2022-11-26] MEDS: Metoprolol Succinate ER 25 MG TAB.ER.24H PO (21:08)
[2022-11-26] MEDS: Atorvastatin Calcium 10 MG TABLET PO (21:08)
[2022-11-26] MEDS: traZODone HCL 50 MG TABLET 150 MG PO (21:08)
[2022-11-26] MEDS: Melatonin 3 MG TABLET 9 MG PO (21:09)
[2022-11-27 00:27] LABS: Glucose, Whole Blood 121 mg/dL (60-115)
[2022-11-27 03:23] VITALS: BP 130/60; PULSE 61; RESP 20; TEMP 36.4; O2SAT 92
[2022-11-27] MEDS: Nicotine Polacrilex 2 MG GUM BUCCAL (03:38)
[2022-11-27] MEDS: Acetaminophen 325 MG TABLET 650 MG PO (03:38)
[2022-11-27 04:19] VITALS: RESP 20
[2022-11-27 07:18] LABS: Glucose, Whole Blood 139 mg/dL (60-115)
[2022-11-27 07:39] VITALS: BP 141/86; PULSE 63; RESP 18; TEMP 36.4; O2SAT 97
--- NOTE | 2022-11-27 08:51 | PM.DS ---
DS: Providers Provider Date of Service: 11/27/22 Date of admission: 11/21/22 19:51 Primary care physician: Unknown Physician Consults: 11/21/22 15:25 Consult to Care Team Stat Comment: Reason for consultation: si, alcohol use 11/21/22 19:58 Addiction Medicine Routine Consulting Provider: Addiction Covering Reason for consultation: alcohol. interested in detox 11/24/22 09:47 Consult to Care Team Routine Comment: Reason for consultation: SI on admission, level of care DS: Diagnosis Discharge Diagnosis (1) Alcohol use disorder, severe, dependence: Status: Acute (2) Alcohol abuse with withdrawal: Status: Acute DS: Summary Hospital Course Hospital Course: History and physical as per admitting provider. 62-year-old male past medical history of hypertension, diabetes, hyperlipidemia, history of opioid use disorder on Suboxone, depression anxiety, comes into the hospital with complaints of withdrawals from alcohol. Patient reports that he drinks 5th of bourbon daily, and is interested in detoxing, he stop drinking right before coming to the hospital, but is already withdrawing. Has history of severe withdrawals including seizures. Denies any chest pain, no shortness of breath, no abdominal pain nausea vomiting, no diarrhea constipation, no urinary symptoms and no lower extremity edema. On arrival to the ED patient was already noted to be withdrawn, patient started on phenobarb protocol and will be admitted for further management patient did endorse suicidal ideation to the ED physician, but is now feeling more calm, and states that he has no intention or plan to hurt himself or others On arrival to the ED hemodynamically stable Labs reviewed, unremarkable, positive for marijuana patient will be admitted for further management 62-year-old man admitted with alcohol intoxication and subsequent withdrawal. Patient was treated with phenobarbital protocol, thiamine, folic acid and IV fluids. Patient responded well. No longer having tremors or anxiety. Discussed importance of alcohol cessation, patient reports that he does have outpatient resources. Hypertension. Continue home medications Thrombocytopenia. Chronic Diabetes mellitus type 2. Continue home medications HAILEY. Continue CPAP Mental health. Continue medications BPH. Continue home medications History of opiate dependence. Continue Suboxone Tobacco use. Discussed the importance of smoking cessation. May use nicotine replacement therapy. Time Spent with Patient Time attestation: Total time managing care of this patient today ____ minutes. Discharge coordination time: Greater than 30 minutes Quality: Safe Use of Opioids Does Pt have an Active Cancer Diagnosis on the Problem List?: No Quality: Stroke Does the patient have a stroke diagnosis?: No Physical Exam Vital Signs: Vital Signs: Last Vital Signs Temp 97.6 F 11/27/22 07:39 Pulse 63 11/27/22 07:39 Resp 18 11/27/22 07:39 BP 141/86 H 11/27/22 07:39 Pulse Ox 97 11/27/22 07:39 O2 Del Method Room Air 11/27/22 07:39 O2 Flow Rate 1 11/23/22 19:16 BMI result Body Mass Index 34.3 Appearing in no acute distress head is normocephalic atraumatic eyes pupils are PERRLA sclera is anicteric mouth throat mucous membranes are intact and moist neck is supple no lymphadenopathy, no JVD noted lung sounds are clear to auscultation heart regular rate rhythm, clear S1, S2 positive bowel sounds, abdomen is soft, nontender neuro patient is alert x3, no focal deficits DS: Data Data Completed and Pending Labs on day of discharge: Laboratory Results - last 24 hr 11/26/22 11/26/22 11/26/22 11:12 16:18 21:01 POC Glucose 160 H 165 H 121 H 11/27/22 07:13 POC Glucose 139 H Discharge Plan Discharge Anticipated Discharge Date/Time: 11/27/22 08:45 Patient Disposition: Home, Self-Care Discharge Diagnosis: Alcohol intoxication and withdrawal Discharge Medications: Continued multivitamin Tablet 1 tab PO DAILY buspirone 5 mg Tablet 5 mg PO BID atorvastatin 20 mg Tablet 10 mg PO BEDTIME sennosides-docusate sodium 8.6-50 mg Tablet 2 tab-cap PO BEDTIME gabapentin 400 mg Capsule 1,200 mg PO TID acyclovir 400 mg Tablet 400 mg PO BID tamsulosin 0.4 mg Capsule 0.4 mg PO BID trazodone 100 mg Tablet 300 mg PO BEDTIME metformin 1,000 mg Tablet 1,000 mg PO DAILY finasteride 5 mg Tablet 5 mg PO DAILY melatonin 5 mg Tablet 10 mg PO BEDTIME buprenorphine-naloxone [Suboxone] 2-0.5 mg Film 1 film BUCCAL DAILY Rx Instructions: place 1 strip/tab under (each) side of tongue buprenorphine-naloxone [Suboxone] 8-2 mg Film 2 film BUCCAL DAILY Rx Instructions: place 1 film on inside of (each) cheek metoprolol succinate 25 mg Capsule,Sprinkle,Er 24hr 25 mg PO BEDTIME duloxetine 60 mg Capsule, Delayed Rel Sprinkle 60 mg PO DAILY hydroxyzine HCl 25 mg Tablet 25 mg PO BEDTIME polyethylene glycol 3350 [Miralax] 17 gram/dose Powder 17 g PO DAILY lisinopril 2.5 mg Tablet 2.5 mg PO DAILY Discharge Orders: Discharge Order (Routine); Ordered 11/27/22 Ordered By: Nelia Yanes Diet: Advance to usual diet Activity on Discharge: As tolerated Stand Alone Forms: Patient Portal Discharge page Care Plan Goals: Do not drink alcohol Health Concerns: Alcohol intoxication and withdrawal Plan of Treatment: Follow-up with primary care provider as needed Follow-up with outpatient resources for alcohol cessation Take all medications as prescribed Assessment: See discharge summary
[2022-11-27] MEDS: PHENobarbitaL 15 MG TABLET PO (09:22)
[2022-11-27] MEDS: Multivitamin TABLET 1 TAB PO (09:23)
[2022-11-27] MEDS: DULoxetine HCl 60 MG CAPSULE.DR PO (09:23)
[2022-11-27] MEDS: Gabapentin 400 MG CAPSULE 1200 MG PO (09:23)
[2022-11-27] MEDS: Buprenorphine/Naloxone 8/2 mg FILM 2 FILM BUCCAL (09:23)
[2022-11-27] MEDS: Buprenorphine/Naloxone 2/0.5mg FILM 1 FILM SUBLINGUAL (09:23)
[2022-11-27] MEDS: Folic Acid 1 MG TABLET PO (09:23)
[2022-11-27] MEDS: Finasteride 5 MG TABLET PO (09:24)
[2022-11-27] MEDS: Acyclovir 200 MG CAPSULE 400 MG PO (09:24)
[2022-11-27] MEDS: Tamsulosin HCL 0.4 MG CAPSULE PO (09:24)
[2022-11-27] MEDS: Thiamine HCL 100 MG TABLET PO (09:24)
[2022-11-27] MEDS: busPIRone HCl 5 MG TABLET PO (09:24)
[2022-11-27] MEDS: polyethylene glycoL 3350 17 GM POWD.PACK PO (09:24)
[2022-11-27] MEDS: Magnesium Oxide 400 MG TABLET PO (09:24)
[2022-11-27] MEDS: lisinopriL 2.5 MG TABLET PO (09:24)
--- NOTE | 2022-11-27 10:20 | MHC.CM.PN ---
Patient discharged to home self care. He arranged for transportation home.
== END 2022-11-27 10:15 | disposition home or self-care (01) | DRG 897 ==
LOC: HO.ED 17:15 → HO.EDOVER 20:04 → HO.S3 11-22 15:01
PROVIDERS: Nurse Practitioner Family; Physician Assistant Medical; Admitting Provider Internal Medicine; Emergency Provider Student in an Organized Health Care Education/Training Program; PCP Family Medicine; Visit Provider Nurse Practitioner Acute Care
DX: F10.239 Alcohol dependence with withdrawal, unspecified (principal); R45.851 Suicidal ideations; F11.20 Opioid dependence, uncomplicated; G93.40 Encephalopathy, unspecified; F41.8 Other specified anxiety disorders; I10 Essential (primary) hypertension; E11.9 Type 2 diabetes mellitus without complications; N40.0 Benign prostatic hyperplasia without lower urinary tract symptoms; D69.59 Other secondary thrombocytopenia; F10.229 Alcohol dependence with intoxication, unspecified; G47.33 Obstructive sleep apnea (adult) (pediatric); E78.5 Hyperlipidemia, unspecified; Z20.822 Contact with and (suspected) exposure to COVID-19; Y90.8 Blood alcohol level of 240 mg/100 ml or more; Z87.891 Personal history of nicotine dependence; Z79.84 Long term (current) use of oral hypoglycemic drugs; Z79.899 Other long term (current) drug therapy
CPT/HCPCS: 36415; 70450; 80048; 80076; 80143; 80179; 80307; 81003; 82947; 83735; 85025; 85027; 87635; 93005; 94660; 99285; J1650; J2560; S9485

== ENCOUNTER → 2022-11-21 19:51 | Outpatient (BNV) | payer OTHER, SELFPAY | PROVIDERS: Admitting Provider Internal Medicine; Emergency Provider Student in an Organized Health Care Education/Training Program; Visit Provider Internal Medicine | DX: F10.139 Alcohol abuse with withdrawal, unspecified (principal) | CPT/HCPCS: 99223; 99232; 99233; 99239; 99499 ==

== ENCOUNTER → 2022-11-21 19:51 | Outpatient (BNV) | payer OTHER, SELFPAY | PROVIDERS: Admitting Provider Internal Medicine; Emergency Provider Student in an Organized Health Care Education/Training Program; Visit Provider Nurse Practitioner Psychiatric/Mental Health | DX: F10.20 Alcohol dependence, uncomplicated (principal) | CPT/HCPCS: 99221 ==

== ENCOUNTER 2023-01-31 10:42 | Inpatient (IN) | payer OTHER, SELFPAY ==
[2023-01-31] VITALS (9 sets, daily range): BP systolic 103–173; BP diastolic 60–115; PULSE 84–122; RESP 12–20; TEMP 36.2–37.3; O2SAT 88–97; BMI 32.3
--- NOTE | 2023-01-31 | ECG_ITS ---
Test Reason : tachycardia Blood Pressure : / mmHG Vent. Rate : 119 BPM Atrial Rate : 119 BPM P-R Int : 172 ms QRS Dur : 090 ms QT Int : 300 ms P-R-T Axes : 052 -27 058 degrees QTc Int : 422 ms Sinus tachycardia Left anterior fascicular block Abnormal ECG When compared with ECG of 21-NOV-2022 16:15, Vent. rate has increased BY 42 BPM Referred By: Aldo Tipton Electronically Signed By:LINDSAY SPARKS MD
--- NOTE | ~2023-01-31 | CT_ITS ---
EXAMINATION: CT ABDOMEN AND PELVIS WITH CONTRAST CLINICAL INFORMATION: Abdominal pain COMPARISON: None available. TECHNIQUE: Multidetector volumetric images were obtained from the superior aspect of the liver through the pubic symphysis following administration 85 mL of Omnipaque 350 intravenous contrast. Sagittal and coronal reformatted images were obtained on the technologist's workstation. Oral contrast: No This CT examination was performed using dose optimization techniques as appropriate, variously including the following: *Automated exposure control *Adjustment of mA and/or kV according to patient size (this includes techniques or standardized protocols for targeted exams where dose is matched to indication/reason for exam; i.e. extremities or head) *Use of iterative reconstruction technique DLP: 885 mGy-cm FINDINGS: LUNG BASES: Unremarkable. ABDOMINAL AND PELVIC WALL: Unremarkable. LIVER AND BILIARY TREE: Hypoattenuating hepatic parenchyma persisting hepatic steatosis. Liver is enlarged measuring 19.1 cm in span. GALLBLADDER: Status post cholecystectomy. PANCREAS: Peripancreatic inflammatory fat stranding surrounding the pancreatic head and uncinate process, suggesting acute interstitial pancreatitis. No loss of peripancreatic enhancement or organized peripancreatic fluid collection. SPLEEN: Spleen is surgically absent with hypertrophied accessory splenules. ADRENAL GLANDS: Unremarkable. KIDNEYS AND URETERS: Bosniak 1 benign appearing right renal cyst, no imaging follow-up recommended. 5 mm nonobstructing left lower pole renal stone. GASTROINTESTINAL TRACT: Colonic diverticulosis without evidence of diverticulitis. Surgical anastomosis in the small bowel in the central abdomen. Normal appendix. VASCULAR: Unremarkable. LYMPH NODES/PERITONEUM: No lymphadenopathy. FREE FLUID: None. BLADDER: Unremarkable. PELVIC VISCERA: Unremarkable. OSSEOUS STRUCTURES: Subacute left anterior seventh through ninth rib fractures. CT/CT abdomen pelvis w IV con IMPRESSION: 1. Peripancreatic inflammatory fat stranding surrounding the pancreatic head and uncinate process, suggesting acute interstitial pancreatitis. No loss of peripancreatic enhancement or organized peripancreatic fluid collection. 2. Subacute left anterior seventh through ninth rib fractures. 3. Hepatomegaly and hepatic steatosis. 4. A 5 mm nonobstructing left lower pole renal stone.
[2023-01-31 11:26] LABS: MANUAL DIFF FLAG NO
[2023-01-31 11:27] LABS: Basophils Absolute Auto 0.1 X10*3/uL (0.0-0.2); Basophils Percent Auto 1.2 % (0-2); Eosinophils Absolute Auto 0.1 X10*3/uL (0.0-0.4); Eosinophils Percent Auto 0.7 % (0-4); Hematocrit 45.1 % (42.0-52.0); Hemoglobin 15.8 g/dl (14.0-18.0); Imm Gran Abs Auto 0.01 X10*3/uL (0.00-0.03); Imm Gran Pct Auto 0.1 % (0.0-0.4); Lymphocytes Percent Auto 22.8 % (20-40); Mean Corpuscular Hemoglobin 32.3 pg (27.0-33.0); Mean Corpuscular Volume 92.2 fL (80.0-98.0); Mean Platelet Volume 10.5 fL (9.4-12.4); Monocytes Absolute Auto 0.7 X10*3/uL (0.1-1.2); Monocytes Percent Auto 7.7 % (2-11); Neutrophils Absolute Auto 5.9 x10*3/uL (2.0-8.3); Neutrophils Percent Auto 67.5 % (45-73); Platelet Count 174 X10*3/uL (160-400); Red Blood Count 4.89 X10*6/uL (4.60-5.80); Red Cell Distribution Width 14.9 % (11.0-16.0); White Blood Count 8.7 X10*3/uL (4.8-10.8)
--- NOTE | 2023-01-31 11:37 | ED_ITS ---
HPI - Alcohol General Chief Complaint: ETOH/Substance Use Stated Complaint: Seeking Detox Time Seen by Provider: 01/31/23 12:22 Source: patient Mode of arrival: ambulatory Limitations: no limitations History of Present Illness HPI narrative: Patient is a 62-year-old male with history of alcohol use disorder, depression anxiety, HTN, diabetes, HLD presenting to the emergency department requesting detox from alcohol. Reports history of withdrawal seizures in the past. Reports that he drinks approximately 20 beers per day as well as Eriberto Dean. Complains of some nausea at this time. States that he last drank alcohol this morning around 630 but did have a few sips of alcohol prior to coming into the ED. He denies any chest pain, palpitations, shortness of breath. Denies any current headache, vision changes. Denies current abdominal pain, vomiting, diarrhea. Denies recent falls or other trauma. MD complaint: alcohol withdrawal Last drink: Hours (ago) Amount of alcohol consumed: Approximately 20 beers Chronic alcohol use: Yes Previous visits for alcohol intoxication: Yes Recent trauma: No Associated symptoms: nausea Treatments prior to arrival: none Related Data Home Medications Medication Instructions Recorded Confirmed acyclovir 400 mg tablet 400 mg PO BID 11/21/22 11/21/22 atorvastatin 20 mg tablet 10 mg PO BEDTIME 11/21/22 11/21/22 buprenorphine 2 mg-naloxone 0.5 mg 1 film buccal DAILY 11/21/22 11/21/22 sublingual film (Suboxone) buprenorphine 8 mg-naloxone 2 mg 2 film buccal DAILY 11/21/22 11/21/22 sublingual film (Suboxone) buspirone 5 mg tablet 5 mg PO BID 11/21/22 11/21/22 duloxetine 60 mg capsule,delayed 60 mg PO DAILY 11/21/22 11/21/22 release sprinkle finasteride 5 mg tablet 5 mg PO DAILY 11/21/22 11/21/22 gabapentin 400 mg capsule 1,200 mg PO TID 11/21/22 11/21/22 hydroxyzine HCl 25 mg tablet 25 mg PO BEDTIME 11/21/22 11/21/22 lisinopril 2.5 mg tablet 2.5 mg PO DAILY 11/21/22 11/21/22 melatonin 5 mg tablet 10 mg PO BEDTIME 11/21/22 11/21/22 metformin 1,000 mg tablet 1,000 mg PO DAILY 11/21/22 11/21/22 metoprolol succinate 25 mg capsule 25 mg PO BEDTIME 11/21/22 11/21/22 sprinkle, ext. release 24 hr multivitamin 1 tab PO DAILY 11/21/22 11/21/22 polyethylene glycol 3350 17 17 g PO DAILY 11/21/22 11/21/22 gram/dose oral powder (Miralax) sennosides 8.6 mg-docusate sodium 2 tab-cap PO BEDTIME 11/21/22 11/21/22 50 mg tablet tamsulosin 0.4 mg capsule 0.4 mg PO BID 11/21/22 11/21/22 trazodone 100 mg tablet 300 mg PO BEDTIME 11/21/22 11/21/22 Allergies Allergy/AdvReac Type Severity Reaction Status Date / Time No Known Allergies Allergy Verified 11/21/22 15:02 Review of Systems 2 Review of Systems: As per HPI. Yes all other systems are reviewed and are negative [facility] Past Medical History Medical History (Updated 01/31/23 @ 14:32 by Allison Gusman NP) Alcohol use disorder, severe, dependence Alcohol abuse Hyperlipidemia Depression with anxiety Diabetes Hypertension Social History Social History Household Members Other:: Self with a dog{ Parker} Housing: House Do you presently have visiting nurse or other home services: No Alcohol intake: current Alcohol intake frequency: 3 or more drinks per day Alcohol type: beer and hard liquor Patient Tobacco Use Status: Former Tobacco user Smoked in Last 30 Days: No Substance Use Type: Marijuana Advance Directives: No service: Yes Physical Exam ED Vital Signs: Vital Signs - 24 hr 01/31/23 11:02 01/31/23 12:16 Temperature 97.1 F Pulse Rate 96 84 Respiratory Rate 18 16 Blood Pressure 105/70 103/60 Pulse Oximetry 94 88 L Oxygen Delivery Method Room Air Room Air BMI result Body Mass Index 32.3 Course Course Course Narrative: This is an RME: Additional HPI, ROS, PE not included below will be deferred to primary provider. 62-year-old male presents concerns that he is in alcohol withdrawal, he reports he is a daily drinker drinks 20 beers and Eriberto Moran a day last drink was at approximately 06:30 this morning and he had a few sips of alcohol prior to coming into the emergency department. He reports he feels unwell, he feels diaphoretic and nauseous. He does have a history of alcohol withdrawal seizures. Plan labs. Medical Decision Making Medical Decision Making [facility] Narrative: Patient is a 62-year-old male with history of alcohol use disorder, depression anxiety, HTN, diabetes, HLD presenting to the emergency department requesting detox from alcohol. On exam patient is awake, A+Ox3, speech slurred, VS WNL, afebrile, physical exam findings as above. Given reported symptoms and physical exam findings, initial differential includes alcohol intoxication, alcohol withdrawal. Labs notable for no leukocytosis, no anemia, no significant electrolyte abnormalities, elevated LFTs, ETOH 297, magnesium WNL. Patient requesting detox from alcohol. Phenobarbital, thiamine, and CIWAs ordered.. Given history of seizures, will admit for alcohol withdrawal. [place] text to TONI Floyd who accepts admission. Differential Diagnosis Differential Diagnoses: The differential diagnosis associated with the presentation includes As per MDM. Consult Healthcare Provider Management of the patient was discussed with: Hospitalist Lab Data [facility] Lab Attestation statement: I reviewed the patient's lab results. As per MDM. 01/31/23 11:22 01/31/23 11:22 Labs: Lab Results 01/31/23 Range/Units 11:22 WBC 8.7 (4.8-10.8) X10*3/uL RBC 4.89 (4.60-5.80) X10*6/uL Hgb 15.8 (14.0-18.0) g/dl Hct 45.1 (42.0-52.0) % MCV 92.2 (80.0-98.0) fL MCH 32.3 (27.0-33.0) pg MCHC 35.0 (31.0-36.0) g/dl RDW 14.9 (11.0-16.0) % Plt Count 174 D (160-400) X10*3/uL MPV 10.5 (9.4-12.4) fL Immature Gran % (Auto) 0.1 (0.0-0.4) % Neut % (Auto) 67.5 (45-73) % Lymph % (Auto) 22.8 (20-40) % [place] % (Auto) 7.7 (2-11) % Eos % (Auto) 0.7 (0-4) % Baso % (Auto) 1.2 (0-2) % Lymph # (Auto) 2.0 (1.2-4.9) X10*3/uL [place] # (Auto) 0.7 (0.1-1.2) X10*3/uL Eos # (Auto) 0.1 (0.0-0.4) X10*3/uL Baso # (Auto) 0.1 (0.0-0.2) X10*3/uL Abs Immat Gran (auto) 0.01 (0.00-0.03) X10*3/uL Absolute Neuts (auto) 5.9 (2.0-8.3) x10*3/uL Absolute Nucleated RBC 0.000 (0.0-0.012) X10*3/uL Nucleated RBC % (auto) 0.0 (0.0-0.2) /100WBC Sodium 142 (135-145) mmol/L Potassium 4.3 (3.3-5.1) mmol/L Chloride 107 (96-108) mmol/L Carbon Dioxide 26 (22-29) mmol/L Anion Gap 13 (12-20) BUN 11 (9-16) mg/dL Creatinine 0.86 (0.5-1.4) mg/dL Estim Creat Clear Calc 103.8 Estimated GFR > 60 Random Glucose 124 H (60-115) mg/dL Calcium 8.5 D (8.4-10.2) mg/dL Magnesium 2.1 (1.6-2.6) mg/dL Total Bilirubin 0.5 (0.0-1.0) mg/dL AST 164 H (5-37) U/L ALT 71 H (0-40) U/L Alkaline Phosphatase 89 (39-117) U/L Total Protein 7.0 (6.5-8.0) g/dL Albumin 3.9 (3.5-5.0) g/dL Ethyl Alcohol 297 mg/dL External Record Review External record reviewed: Inpatient record, Office record and Outpatient record Prescription Management I considered prescription management with: Other Medications Administered Discontinued Medications Generic Name Dose Route Start Last Admin Trade Name Freq PRN Reason Stop Dose Admin Sodium Chloride 1,000 mls @ 999 mls/hr 01/31/23 12:30 01/31/23 12:27 Ns IV 01/31/23 13:30 999 mls/hr .Q1H1M ANA Administration Lorazepam 2 mg 01/31/23 12:22 01/31/23 12:29 Lorazepam 2 Mg/Ml Vial IVPUSH 01/31/23 12:23 2 mg ONCE ONE Administration Discharge Plan Discharge Patient Disposition: Admitted As Inpatient Prescriptions: No Action multivitamin Tablet 1 tab PO DAILY buspirone 5 mg Tablet 5 mg PO BID atorvastatin 20 mg Tablet 10 mg PO BEDTIME sennosides-docusate sodium 8.6-50 mg Tablet 2 tab-cap PO BEDTIME gabapentin 400 mg Capsule 1,200 mg PO TID acyclovir 400 mg Tablet 400 mg PO BID tamsulosin 0.4 mg Capsule 0.4 mg PO BID trazodone 100 mg Tablet 300 mg PO BEDTIME metformin 1,000 mg Tablet 1,000 mg PO DAILY finasteride 5 mg Tablet 5 mg PO DAILY melatonin 5 mg Tablet 10 mg PO BEDTIME buprenorphine-naloxone [Suboxone] 2-0.5 mg Film 1 film BUCCAL DAILY Rx Instructions: place 1 strip/tab under (each) side of tongue buprenorphine-naloxone [Suboxone] 8-2 mg Film 2 film BUCCAL DAILY Rx Instructions: place 1 film on inside of (each) cheek metoprolol succinate 25 mg Capsule,Sprinkle,Er 24hr 25 mg PO BEDTIME duloxetine 60 mg Capsule, Delayed Rel Sprinkle 60 mg PO DAILY hydroxyzine HCl 25 mg Tablet 25 mg PO BEDTIME polyethylene glycol 3350 [Miralax] 17 gram/dose Powder 17 g PO DAILY lisinopril 2.5 mg Tablet 2.5 mg PO DAILY
[2023-01-31 11:39] LABS: Ethanol 297 mg/dL
[2023-01-31 11:42] LABS: Alanine Aminotransferase 71 U/L (0-40); Albumin Level 3.9 g/dL (3.5-5.0); Alkaline Phosphatase 89 U/L (39-117); Anion Gap 13 (12-20); Aspartate Amino Transferase 164 U/L (5-37); Bilirubin Total 0.5 mg/dL (0.0-1.0); Blood Urea Nitrogen 11 mg/dL (9-16); Calcium 8.5 mg/dL (8.4-10.2); Carbon Dioxide 26 mmol/L (22-29); Chloride 107 mmol/L (96-108); Creatinine Clr Calc Pharmacy 103.8; Estimated Glomerular Filt Rate > 60; Glucose Random 124 mg/dL (60-115); Potassium 4.3 mmol/L (3.3-5.1); Sodium 142 mmol/L (135-145)
[2023-01-31] MEDS: 0.9 % Sodium Chloride 1,000 ML 999 ML IV (12:27)
[2023-01-31] MEDS: LORazepam 2 MG/ML VIAL IVPUSH (12:29)
--- NOTE | 2023-01-31 12:33 | PC.NURSE ---
pt comes to ED with symptoms of alcohol withdrawal. pt [employer]UWA [employer] - [employer] notified. pt tremulous, with moist palms, anxiety, denies pain. Pt has hx of alcohol withdrawal seizures - seizure precautions in place. IV started, 22 right hand fluids infusing per may, ativan given as well per may. pt states he is seeking detox. pt low O2 sat on RA, states that his oxygen is always low, satts were 88-91 on RA, place on 2.5 L NC and then bumped to 3L to keep saturation above 90. last drink 0630 this AM, pt had a beer. usually drinks 20 beers per day and a half a pint of liquor.
[2023-01-31 13:24] LABS: Magnesium 2.1 mg/dL (1.6-2.6)
[2023-01-31] MEDS: Thiamine HCL 100 MG in 0.9 % Sodium Chloride 100 ML 202 MG IV (14:23)
[2023-01-31] MEDS: PHENobarbitaL sodium 130 MG/ML IM ONCE 292 MG IM (14:32)
--- NOTE | 2023-01-31 15:11 | PC.NURSE ---
Ed provider notified when pt first came on of slurred speech and mummbly. Pt very sleepy and has difficulty carrying on a conversation. vitals stable, first dose of phenobarb given IM.
--- NOTE | 2023-01-31 15:29 | P.HPHOSP_ITS ---
History of Present Illness Date of Service: 01/31/23 Attending physician on admission: David Robles Chief Complaint: Alcohol withdrawal Pt is a 62-year-old male with a PMH significant for?HTN, HLD, [id number] diabetes type 2, BPH, alcohol use disorder with hx of withdrawal seizures, hx of opioid use disorder on Suboxone, anxiety, and depression who presents to the ED with complaints of alcohol withdrawal. Pt is somnolent but arousable at time of interview, but appears acutely intoxicated with slurred speech and occasional nonsensical answers. He reports currently drinking 20+ beers and one pint of vodka daily with last drink this morning around 7:00. Says he has a history of difficult detoxes which include a hx of withdrawal seizures. Presents today because he wants to detox and stop drinking but needs help to do so. Initially reported some nausea when he arrived but currently none. Does not have any other acute medical complaints. Denies chest pain/pressure, palpitations. No SOB. Denies fever, chills, abdominal pain. In the ED pt was afebrile and satting as low at 88% on RA. Labs were significant for AST 164 and ALT 71, otherwise unremarkable. Stable H&H. Electrolytes WNL. Renal function WNL. Pt was treated with IVF, Ativan, thiamine, and started on phenobarb protocol. Pt will be admitted to the hospital for treatment of acute alcohol withdrawal. Review of Systems 2 Review of Systems: Pt complains of detoxing hard but fails to further clarify [facility] Medical History (Updated 01/31/23 @ 23:53 by TONI Ramirez) Alcohol use disorder, severe, dependence Alcohol abuse Hyperlipidemia Depression with anxiety Diabetes Hypertension Social History Household Members: None Household Members Other:: Self with a dog{ Parker} Housing: House Do you presently have visiting nurse or other home services: No Alcohol intake: current Alcohol intake frequency: 3 or more drinks per day Alcohol type: beer and hard liquor Patient Tobacco Use Status: Former Tobacco user Smoked in Last 30 Days: No Use of substances other than those prescribed or required for medical reasons: No Substance Use Type: Marijuana Currently Displaying Signs/Symptoms of Drug Intoxication Withdrawal: No Advance Directives: No Advance Directives Information Provided: No Do you have thoughts of harming others: None Do you have a plan to hurt others: No Plan service: Yes Meds Allergies Allergy/AdvReac Type Severity Reaction Status Date / Time No Known Allergies Allergy Verified 11/21/22 15:02 Active Medications: Current Medications Pharmacy Consult (Consult Rx Etoh Phenob Im/Po) 1 each MISCELLANE ONCE PRN; Protocol PRN Reason: Consult order Phenobarbital (Phenobarbital 15 Mg Tablet) 45 mg PO BID ANA; Protocol Stop: 02/02/23 21:01 Phenobarbital (Phenobarbital 30 Mg Tablet) 30 mg PO BID ANA; Protocol Stop: 02/04/23 21:01 Phenobarbital (Phenobarbital 30 Mg Tablet) 30 mg PO DAILY ANA; Protocol Stop: 02/06/23 09:01 Phenobarbital Sodium (Phenobarbital Sodium 130 Mg/Ml Vial Im Q3hx2) 220 mg IM Q3H ANA; Protocol Stop: 01/31/23 20:01 Home Medications Medication Instructions Recorded Confirmed Last Taken Type acyclovir 400 mg tablet 400 mg PO BID 11/21/22 01/31/23 11/21/22 History atorvastatin 20 mg tablet 10 mg PO BEDTIME 11/21/22 01/31/23 11/20/22 History buprenorphine 8 mg-naloxone 2 mg 2 film buccal DAILY 11/21/22 01/31/23 11/21/22 History sublingual film (Suboxone) buspirone 5 mg tablet 5 mg PO BID 11/21/22 01/31/23 11/21/22 History finasteride 5 mg tablet 5 mg PO DAILY 11/21/22 01/31/23 11/21/22 History gabapentin 400 mg capsule 1,200 mg PO TID 11/21/22 01/31/23 11/21/22 History hydroxyzine HCl 25 mg tablet 25 mg PO BEDTIME 11/21/22 01/31/23 11/21/22 History lisinopril 2.5 mg tablet 2.5 mg PO DAILY 11/21/22 01/31/23 11/21/22 History melatonin 5 mg tablet 5 mg PO BEDTIME 11/21/22 01/31/23 11/20/22 History metformin 1,000 mg tablet 1,000 mg PO DAILY 11/21/22 01/31/23 11/21/22 History metoprolol succinate 25 mg capsule 25 mg PO BEDTIME 0901/31/23 11/20/22 History sprinkle, ext. release 24 hr multivitamin 1 tab PO DAILY 11/21/22 01/31/23 11/21/22 History sennosides 8.6 mg-docusate sodium 2 tab-cap PO BEDTIME 11/21/22 01/31/23 11/20/22 History 50 mg tablet tamsulosin 0.4 mg capsule 0.8 mg PO BEDTIME 11/21/22 01/31/23 11/21/22 History trazodone 100 mg tablet 300 mg PO BEDTIME 11/21/22 01/31/23 11/20/22 History cyclobenzaprine 10 mg tablet 10 mg PO TID PRN Muscle Spasm 01/31/23 01/31/23 Unknown History psyllium husk 3.4 gram/5.4 gram 1 tbsp PO DAILY PRN Constipation 01/31/23 01/31/23 Unknown History oral powder (Metamucil) Physical Exam 2 Vital Signs and Narrative: Vital Signs: Last Vital Signs Temp 97.1 F 01/31/23 11:02 Pulse 88 01/31/23 15:12 Resp 12 01/31/23 15:12 BP 121/77 01/31/23 15:12 Pulse Ox 96 01/31/23 15:12 O2 Del Method Room Air 01/31/23 15:12 O2 Flow Rate 4 01/31/23 14:29 BMI result Body Mass Index 32.3 Constitutional: Alert but somnolent, drifting in and out of sleep during interview. Appears acutely intoxicated. In no acute distress. Mental Status: Oriented to person, place and time. Eyes: Pupils are equal, round, and reactive to light. Ear, Nose, and Throat: Oropharynx clear, mucous membranes moist. Ears and nose without deformities. Trachea midline. Respiratory: Clear to auscultation bilaterally. No wheezing, rales, or rhonchi. Cardiovascular: S1, S2 regular. No murmurs, rubs, or gallops. Gastrointestinal: Abdomen soft, non-tender, non-distended. Normal bowel sounds. Neurologic: Cranial nerves II-XII are grossly intact bilaterally. No focal neurological deficits. Moves all extremities spontaneously. Moderate upper extremity tremors noted. Skin: Warm, dry. Musculoskeletal: No cyanosis or clubbing. Extremities: No edema. Results Labs 01/31/23 11:22 02/01/23 06:06 Labs: Laboratory Results - last 24 hr 01/31/23 11:22 MCV 92.2 MCH 32.3 MCHC 35.0 RDW 14.9 Plt Count 174 D MPV 10.5 Immature Gran % (Auto) 0.1 Neut % (Auto) 67.5 Lymph % (Auto) 22.8 [place] % (Auto) 7.7 Eos % (Auto) 0.7 Baso % (Auto) 1.2 Lymph # (Auto) 2.0 [place] # (Auto) 0.7 Eos # (Auto) 0.1 Baso # (Auto) 0.1 Abs Immat Gran (auto) 0.01 Absolute Neuts (auto) 5.9 Absolute Nucleated RBC 0.000 Nucleated RBC % (auto) 0.0 Anion Gap 13 Estim Creat Clear Calc 103.8 Estimated GFR > 60 Random Glucose 124 H Calcium 8.5 D Magnesium 2.1 Total Bilirubin 0.5 AST 164 H ALT 71 H Alkaline Phosphatase 89 Total Protein 7.0 Albumin 3.9 Ethyl Alcohol 297 Assessment and Plan (1) Alcohol withdrawal syndrome: Qualifiers: Complication of substance-induced condition: uncomplicated Qualified Code(s): F10.930 - Alcohol use, unspecified with withdrawal, uncomplicated Status: Acute Plan Pt is a 62-year-old male with a PMH significant for?HTN, HLD, [id number] diabetes type 2, BPH, alcohol use disorder with hx of withdrawal seizures, hx of opioid use disorder on Suboxone, anxiety, and depression who presents to the ED with complaints of alcohol withdrawal. Acute alcohol withdrawal Moderate upper extremity tremors, hx of withdrawal seizures Received IVF, lorazepam, thiamine, and started on phenobarb in the ED Continue Phenobarb protocol Daily multivitamin, folic acid, thiamine Famotidine Follow lytes, Mag, BMP IVF: lactated ringers CIWA scale Seizure protocols Addiction medicine consult Monitor on telemetry HTN Continue lisinopril, metoprolol Non-insulin dependent diabetes type 2 Hold metformin SSI, diabetic diet BPH Continue tamsulosin Mood disorder Continue home meds Full Code Attending:?Dr. Robles DVT Prophylaxis: Lovenox Pt will require a hospitalization of at least two nights for treatment of?acute alcohol withdrawal in a pt with hx of alcohol withdrawal seizures. Pt will require IVF, phenobarb, and close monitoring. Quality Stroke Does the patient have a stroke diagnosis?: No VTE Prior VTE?: No VTE Risk Level:: Medical - moderate - high VTE Device Contraindication: Treatment Not Indicated VTE Drug Contraindication: N/A - Med Ordered
--- NOTE | 2023-01-31 16:06 | PM.EVENT ---
Event Note Date of Service: 01/31/23 Event Note: Addendum to H+P by hospitalist TONI Callahan Addendum to history and physical by the advanced practice provider, Manisha MUÑOZ I interviewed and examined the patient. I discussed their presentation and management with the SHAKIRA. I reviewed the history and physical and agree with the documentation, with the following additions and corrections: 62yo M with AUD, OUD on Suboxone, TPH, DM2, HTN, HLD, mood disorder presenting with acute EtOH intoxication with impending withdrawal + hx of seizures Pt delirious, tremulous Admit to [facility] for acute EtOH wtidhrawal on Phenobarbital taper Continue home meds Time Spent With Patient Time: Total time managing care of this patient today ____ minutes.
--- NOTE | 2023-01-31 16:14 | MHC.EDTECH ---
Brought patient a pitcher of ice water.
[2023-01-31] MEDS: Lactated Ringers 1,000 ML 100 ML IVCONT (16:51)
[2023-01-31] MEDS: Enoxaparin Sodium 40 MG/0.4 ML SYRINGE SUBCUT (16:52)
[2023-01-31] MEDS: Nicotine 21 MG PATCH.TD24 TRANSDERMA (16:53)
[2023-01-31] MEDS: Multivitamin TABLET 1 TAB PO (16:54)
[2023-01-31] MEDS: Folic Acid 1 MG TABLET PO (16:54)
[2023-01-31] MEDS: PHENobarbitaL sodium 130 MG/ML VIAL IM Q3Hx2 220 MG IM ×2 (16:58→20:24)
--- NOTE | 2023-01-31 17:36 | PHA.MEDREC ---
Pharmacy Consult ? Medication Reconciliation Pharmacy has completed the medication reconciliation. Patient confirmed most medications based on previous medical records. Reports no longer taking duloxetine. Reported taking tamsulosin 2 at bedtime instead of BID. [facility]. Patient stated he takes metformin every morning but no fill history. Nova Rodriguez, PharmD
--- NOTE | 2023-01-31 18:42 | PC.NURSE ---
report given to floor, tech to bring upstairs
[2023-01-31 20:11] LABS: Glucose, Whole Blood 107 mg/dL (60-115)
[2023-01-31] MEDS: Famotidine 20 MG TABLET PO (20:24)
[2023-02-01] MEDS: PHENobarbitaL 30 MG TABLET PO (00:40)
[2023-02-01] MEDS: Lactated Ringers 1,000 ML 100 ML IVCONT ×3 (03:23→22:41)
[2023-02-01 03:33] VITALS: BP 175/94; PULSE 146; RESP 20; TEMP 37.1; O2SAT 94
[2023-02-01 06:49] LABS: Anion Gap 12 (12-20); Blood Urea Nitrogen 9 mg/dL (9-16); Calcium 8.5 mg/dL (8.4-10.2); Carbon Dioxide 26 mmol/L (22-29); Chloride 103 mmol/L (96-108); Creatinine Clr Calc Pharmacy 129.4; Estimated Glomerular Filt Rate > 60; Glucose Random 151 mg/dL (60-115); Magnesium 1.7 mg/dL (1.6-2.6); Potassium 4.2 mmol/L (3.3-5.1); Sodium 137 mmol/L (135-145)
[2023-02-01 07:31] LABS: Glucose, Whole Blood 175 mg/dL (60-115)
[2023-02-01 07:33] VITALS: BP 137/93; PULSE 116; RESP 18; TEMP 36.6; O2SAT 92
[2023-02-01] MEDS: Insulin Lispro 100 UNIT/ML 3 ML VIAL SUBCUT (08:32)
[2023-02-01] MEDS: lisinopriL 2.5 MG TABLET PO (08:33)
[2023-02-01] MEDS: Gabapentin 400 MG CAPSULE 1200 MG PO ×3 (08:33→20:55)
[2023-02-01] MEDS: Famotidine 20 MG TABLET PO ×2 (08:33→20:56)
[2023-02-01] MEDS: Thiamine HCL 100 MG TABLET PO (08:33)
[2023-02-01] MEDS: Acyclovir 200 MG CAPSULE 400 MG PO ×2 (08:34→20:58)
[2023-02-01] MEDS: Folic Acid 1 MG TABLET PO (08:34)
[2023-02-01] MEDS: Multivitamin TABLET 1 TAB PO (08:34)
[2023-02-01] MEDS: PHENobarbitaL 15 MG TABLET 45 MG PO ×2 (08:34→20:56)
[2023-02-01] MEDS: Finasteride 5 MG TABLET PO (08:34)
[2023-02-01] MEDS: Buprenorphine/Naloxone 8/2 mg FILM 2 FILM BUCCAL (08:34)
[2023-02-01] MEDS: Nicotine 21 MG PATCH.TD24 TRANSDERMA (08:35)
[2023-02-01] MEDS: PHENobarbitaL sodium 130 MG/ML VIAL 220 MG IM (08:35)
[2023-02-01] MEDS: busPIRone HCl 5 MG TABLET PO ×2 (08:35→20:56)
--- NOTE | 2023-02-01 09:21 | MHC.CM.PN ---
Pt lives at home alone, self-care. Pt reports he is 100% disabled and [facility], [facility] in [place], but does not know the name of his PCP. Pts goal is to return home self-care when medically cleared, pt will arrange his own transportation. Pt declines a HCP at this time.
--- NOTE | 2023-02-01 10:29 | P.PNIM_ITS ---
Subjective Subjective Date of Service: 02/01/23 Interval History: anxious, tremulous CIWA this AM 16 Review of Systems Review of Systems: Yes all other systems are reviewed and are negative Physical Exam 2 Vital Signs: Vital Signs: Last Vital Signs Temp 97.8 F 02/01/23 07:33 Pulse 116 H 02/01/23 07:33 Resp 18 02/01/23 07:33 BP 137/93 H 02/01/23 07:33 Pulse Ox 92 02/01/23 07:33 O2 Del Method Room Air 02/01/23 07:33 O2 Flow Rate 2 01/31/23 19:04 BMI result Body Mass Index 32.3 Gen: tremulous HEENT: sclera anicteric, moist mucus membranes Neck: supple Lungs: clear to auscultation bilaterally Heart: regular, tachycardic, no murmurs Abd: soft, non-tender, non-distended Ext: no edema Skin: warm/well-perfused Neuro: alert and oriented x3, no focal findings Psych: appropriate affect Objective Data Active Medications Acetaminophen (Acetaminophen 325 Mg Tablet) 650 mg PO Q6H PRN PRN Reason: Pain, Mild (Pain Scale 1-3) Acyclovir (Acyclovir 200 Mg Capsule) 400 mg PO BID COUNT INCLUDES [facility] Last Admin: 02/01/23 08:34 Dose: 400 mg Documented By: KEVIN Atorvastatin Calcium (Atorvastatin Calcium 10 Mg Tablet) 10 mg PO BEDTIME COUNT INCLUDES [facility] Benzonatate (Benzonatate 100 Mg Capsule) 100 mg PO TID PRN PRN Reason: Cough Buprenorphine/Naloxone (Buprenorphine/Naloxone 8/2 Mg Film) 2 film BUCCAL DAILY COUNT INCLUDES [facility] Last Admin: 02/01/23 08:34 Dose: 2 film Documented By: KEVIN Buspirone HCl (Buspirone Hcl 5 Mg Tablet) 5 mg PO BID COUNT INCLUDES [facility] Last Admin: 02/01/23 08:35 Dose: 5 mg Documented By: KEVIN Cyclobenzaprine HCl (Cyclobenzaprine Hcl 10 Mg Tablet) 10 mg PO TID PRN PRN Reason: Muscle Spasm Dextrose (Dextrose 50 % 25 Gm/50 Ml Syringe) 25 gm IVPUSH Q15M PRN; Protocol PRN Reason: per Hypoglycemia Standing Ord. Docusate Sodium (Docusate Sodium 100 Mg Capsule) 100 mg PO DAILY PRN PRN Reason: Constipation Enoxaparin Sodium (Enoxaparin Sodium 40 Mg/0.4 Ml Syringe) 40 mg SUBCUT Q24H COUNT INCLUDES [facility] Last Admin: 01/31/23 16:52 Dose: 40 mg Documented By: KATIUSKA Famotidine (Famotidine 20 Mg Tablet) 20 mg PO BID COUNT INCLUDES [facility] Last Admin: 02/01/23 08:33 Dose: 20 mg Documented By: KEVIN Finasteride (Finasteride 5 Mg Tablet) 5 mg PO DAILY COUNT [facility]CLUDES [facility] Last Admin: 02/01/23 08:34 Dose: 5 mg Documented By: KEVIN Folic Acid (Folic Acid 1 Mg Tablet) 1 mg PO DAILY COUNT [facility]CLUDES [facility] Stop: 02/03/23 15:39 Last Admin: 02/01/23 08:34 Dose: 1 mg Documented By: KEVIN Gabapentin (Gabapentin 400 Mg Capsule) 1,200 mg PO TID COUNT [facility]CLUDES [facility] Last Admin: 02/01/23 08:33 Dose: 1,200 mg Documented By: KEVIN Glucose (Glucose Gel 15 Gm Gel..Gram.) 15 gm PO Q15M PRN; Protocol PRN Reason: per Hypoglycemia Standing Ord. Hydroxyzine HCl (Hydroxyzine Hcl 25 Mg Tablet) 25 mg PO BEDTIME COUNT INCLUDES [facility] Lactated Ringer's (Lr) 1,000 mls @ 100 mls/hr IVCONT .Q10H COUNT INCLUDES [facility] Last Admin: 02/01/23 03:23 Dose: 100 mls/hr Documented By: AL Insulin Human Lispro (Insulin Lispro 100 Unit/Ml 3 Ml Vial) 0 unit SUBCUT QIDACHS COUNT INCLUDES [facility]; Protocol Last Admin: 02/01/23 08:32 Dose: 2 unit Documented By: KEVIN Lisinopril (Lisinopril 2.5 Mg Tablet) 2.5 mg PO DAILY COUNT INCLUDES [facility]; Protocol Last Admin: 02/01/23 08:33 Dose: 2.5 mg Documented By: KEVIN Metoprolol Succinate (Metoprolol Succinate Er 25 Mg Tab.Er.24h) 25 mg PO BEDTIME COUNT INCLUDES [facility]; Protocol Multivitamins/Vitamin C (Multivitamin Tablet) 1 tab PO DAILY COUNT INCLUDES [facility] Stop: 02/03/23 15:39 Last Admin: 02/01/23 08:34 Dose: 1 tab Documented By: KEVIN Nicotine (Nicotine 21 Mg Patch.Td24) 21 mg TRANSDERMA DAILY COUNT INCLUDES [facility] Last Admin: 02/01/23 08:35 Dose: 21 mg Documented By: KEVIN Ondansetron HCl (Ondansetron Hcl 4 Mg/2 Ml Vial) 4 mg IVPUSH Q8H PRN PRN Reason: Nausea and Vomiting Pharmacy Consult (Consult Rx Etoh Phenob Im/Po) 1 each MISCELLANE ONCE PRN; Protocol PRN Reason: Consult order Phenobarbital (Phenobarbital 15 Mg Tablet) 45 mg PO BID COUNT INCLUDES [facility]; Protocol Stop: 02/02/23 21:01 Last Admin: 02/01/23 08:34 Dose: 45 mg Documented By: KEVIN Phenobarbital (Phenobarbital 30 Mg Tablet) 30 mg PO BID COUNT [facility]CLUDES [facility]; Protocol Stop: 02/04/23 21:01 Phenobarbital (Phenobarbital 30 Mg Tablet) 30 mg PO DAILY COUNT [facility]CLUDES [facility]; Protocol Stop: 02/06/23 09:01 Senna/Docusate Sodium (Sennosides/Docusate Sodium Tablet) 2 tab PO BEDTIME COUNT INCLUDES [facility] Sodium Chloride (0.9 % Sodium Chloride Flush 3 Ml Syringe) 3 ml IVFLUSH QSHIFT COUNT INCLUDES [facility] Last Admin: 02/01/23 08:41 Dose: Not Given Documented By: KEVIN Non-Admin Reason: IV Running Tamsulosin HCl (Tamsulosin Hcl 0.4 Mg Capsule) 0.8 mg PO BEDTIME COUNT INCLUDES [facility] Thiamine HCl (Thiamine Hcl 100 Mg Tablet) 100 mg PO DAILY COUNT INCLUDES [facility] Stop: 02/04/23 08:59 Last Admin: 02/01/23 08:33 Dose: 100 mg Documented By: KEVIN Trazodone HCl (Trazodone Hcl 100 Mg Tablet) 300 mg PO BEDTIME COUNT INCLUDES [facility] Labs 01/31/23 11:22 02/01/23 06:06 Labs: Laboratory Results - last 24 hr 01/31/23 01/31/23 02/01/23 11:22 20:06 06:06 MCV 92.2 MCH 32.3 MCHC 35.0 RDW 14.9 Plt Count 174 D MPV 10.5 Immature Gran % (Auto) 0.1 Neut % (Auto) 67.5 Lymph % (Auto) 22.8 [place] % (Auto) 7.7 Eos % (Auto) 0.7 Baso % (Auto) 1.2 Lymph # (Auto) 2.0 [place] # (Auto) 0.7 Eos # (Auto) 0.1 Baso # (Auto) 0.1 Abs Immat Gran (auto) 0.01 Absolute Neuts (auto) 5.9 Absolute Nucleated RBC 0.000 Nucleated RBC % (auto) 0.0 Hold Purple Top SEE NOTE Anion Gap 13 12 Estim Creat Clear Calc 103.8 129.4 Estimated GFR > 60 > 60 POC Glucose 107 Random Glucose 124 H 151 H Calcium 8.5 D 8.5 Magnesium 2.1 1.7 Total Bilirubin 0.5 AST 164 H ALT 71 H Alkaline Phosphatase 89 Total Protein 7.0 Albumin 3.9 Ethyl Alcohol 297 02/01/23 07:05 MCV MCH MCHC RDW Plt Count MPV Immature Gran % (Auto) Neut % (Auto) Lymph % (Auto) [place] % (Auto) Eos % (Auto) Baso % (Auto) Lymph # (Auto) [place] # (Auto) Eos # (Auto) Baso # (Auto) Abs Immat Gran (auto) Absolute Neuts (auto) Absolute Nucleated RBC Nucleated RBC % (auto) Hold Purple Top Anion Gap Estim Creat Clear Calc Estimated GFR POC Glucose 175 H Random Glucose Calcium Magnesium Total Bilirubin AST ALT Alkaline Phosphatase Total Protein Albumin Ethyl Alcohol Assessment and Plan (1) Alcohol withdrawal syndrome: Status: Acute Plan d2 62yo M with AUD presenting with acute withdrawal acute EtOH withdrawal - phenobarbital taper, thiamine, Addiction Medicine consult HTN - metoprolol, lisinopril DM2 - steve-dose lispro HLD - statin BPH - finasteride, tamuslosin OUD - Suboxone tobacco abuse - NRT mood disorder - buspirone, hydroxzine, tamsulosin chronic pain - gabapentin, cyclobenzaprine VTE ppx - LMWH dispo - TBD In my clinical judgment, the patient requires continued inpatient hospitalization for the following reasons: sev EtOH w/d Total time managing care of this patient today: 35 minutes. Quality Stroke Does the patient have a stroke diagnosis?: No VTE Prior VTE?: No VTE Risk Level:: Medical - moderate - high VTE Device Contraindication: Treatment Not Indicated VTE Drug Contraindication: N/A - Med Ordered
[2023-02-01 11:37] VITALS: BP 152/86; PULSE 118; RESP 18; TEMP 36.6; O2SAT 93
[2023-02-01 11:44] LABS: Glucose, Whole Blood 139 mg/dL (60-115)
[2023-02-01] MEDS: Sennosides/Docusate Sodium TABLET 2 TAB PO ×2 (11:53→20:57)
[2023-02-01] MEDS: Lactulose 20 GM/30 ML SOLUTION PO (11:53)
[2023-02-01] MEDS: polyethylene glycoL 3350 17 GM POWD.PACK PO (11:53)
[2023-02-01 14:59] LABS: Appearance Urine Clear; Color Urine Dark Yellow; Glucose Urine UA 250 mg/dL (Negative); Leukocyte Esterase Urine Trace (Negative); Nitrite Urine Negative (Negative); Specific Gravity - Urine 1.025 (1.005-1.025); UMIC TRIGGER UACC YES; Urine Blood Large (3+) (Negative); Urine Ketones Trace mg/dL (Negative); Urine Protein 100 (2+) mg/dL (Neg-Trace)
[2023-02-01 15:01] LABS: Bacteria Urine None Seen (None Seen); Hyaline Casts Urine 0-2 /LPF (0-2); RBC Urine >20 /HPF (0-2); Squamous Epithelial Cell Urine 0-2 /HPF (0-2); WBC Urine 0-5 /HPF (0-5)
[2023-02-01 15:18] VITALS: BP 151/89; PULSE 131; RESP 18; TEMP 36.3; O2SAT 91
[2023-02-01 15:20] LABS: Amphetamine Screen Urine Not Detected (Not Detect); Barbiturates, Urine POSITIVE (Not Detect); Benzodiazepines Screen Urine Not Detected (Not Detect); Cannabinoid Screen Urine POSITIVE (Not Detect); Cocaine Screen Urine Not Detected (Not Detect); Fentanyl, urine Not Detected (Not Detect); Opiate Screen Urine Not Detected (Not Detect); Phencyclidine Screen Urine Not Detected (Not Detect)
[2023-02-01 17:09] LABS: Glucose, Whole Blood 138 mg/dL (60-115)
[2023-02-01] MEDS: Enoxaparin Sodium 40 MG/0.4 ML SYRINGE SUBCUT (17:34)
[2023-02-01 19:27] VITALS: BP 140/87; PULSE 119; RESP 18; TEMP 36.1; O2SAT 91
[2023-02-01] MEDS: Metoprolol Succinate ER 25 MG TAB.ER.24H PO (20:55)
[2023-02-01] MEDS: Atorvastatin Calcium 10 MG TABLET PO (20:55)
[2023-02-01] MEDS: hydrOXYzine HCL 25 MG TABLET PO (20:56)
[2023-02-01] MEDS: traZODone HCL 100 MG TABLET 300 MG PO (20:56)
[2023-02-01] MEDS: Tamsulosin HCL 0.4 MG CAPSULE 0.8 MG PO (20:57)
[2023-02-01 21:05] LABS: Glucose, Whole Blood 142 mg/dL (60-115)
[2023-02-01 23:56] VITALS: BP 133/80; PULSE 111; RESP 19; TEMP 36.7; O2SAT 90
[2023-02-02 03:46] VITALS: BP 127/82; PULSE 98; RESP 18; TEMP 36.7; O2SAT 91
[2023-02-02 06:35] LABS: Alanine Aminotransferase 47 U/L (0-40); Albumin Level 3.2 g/dL (3.5-5.0); Alkaline Phosphatase 70 U/L (39-117); Anion Gap 11 (12-20); Aspartate Amino Transferase 97 U/L (5-37); Bilirubin Total 1.1 mg/dL (0.0-1.0); Blood Urea Nitrogen 6 mg/dL (9-16); Calcium 8.3 mg/dL (8.4-10.2); Carbon Dioxide 28 mmol/L (22-29); Chloride 102 mmol/L (96-108); Creatinine Clr Calc Pharmacy 125.8; Estimated Glomerular Filt Rate > 60; Glucose Random 119 mg/dL (60-115); Potassium 3.8 mmol/L (3.3-5.1); Sodium 137 mmol/L (135-145); Total Protein 6.1 g/dL (6.5-8.0)
[2023-02-02 07:03] VITALS: BP 146/86; PULSE 102; RESP 18; TEMP 36.5; O2SAT 93
[2023-02-02 07:41] LABS: Glucose, Whole Blood 140 mg/dL (60-115)
[2023-02-02] MEDS: Buprenorphine/Naloxone 8/2 mg FILM 2 FILM BUCCAL (08:26)
[2023-02-02] MEDS: polyethylene glycoL 3350 17 GM POWD.PACK PO (08:26)
[2023-02-02] MEDS: PHENobarbitaL 15 MG TABLET 45 MG PO ×2 (08:26→21:56)
[2023-02-02] MEDS: Multivitamin TABLET 1 TAB PO (08:27)
[2023-02-02] MEDS: Thiamine HCL 100 MG TABLET PO (08:27)
[2023-02-02] MEDS: busPIRone HCl 5 MG TABLET PO ×2 (08:27→21:57)
[2023-02-02] MEDS: Famotidine 20 MG TABLET PO ×2 (08:27→21:57)
[2023-02-02] MEDS: lisinopriL 2.5 MG TABLET PO (08:27)
[2023-02-02] MEDS: Folic Acid 1 MG TABLET PO (08:27)
[2023-02-02] MEDS: Acyclovir 200 MG CAPSULE 400 MG PO ×2 (08:27→21:57)
[2023-02-02] MEDS: Sennosides/Docusate Sodium TABLET 2 TAB PO (08:27)
[2023-02-02] MEDS: Gabapentin 400 MG CAPSULE 1200 MG PO ×3 (08:27→21:57)
[2023-02-02] MEDS: Finasteride 5 MG TABLET PO (08:28)
[2023-02-02] MEDS: Nicotine 21 MG PATCH.TD24 TRANSDERMA (08:34)
[2023-02-02] MEDS: 0.9 % Sodium Chloride Flush 3 ML SYRINGE IVFLUSH ×2 (08:53→18:03)
--- NOTE | 2023-02-02 10:52 | HO.PM.IMPN ---
Subjective Subjective Date of Service: 02/02/23 Interval History: less tremulous Review of Systems Review of Systems: Yes all other systems are reviewed and are negative Physical Exam Vital Signs: Vital Signs: Last Vital Signs Temp 97.7 F 02/02/23 07:03 Pulse 102 H 02/02/23 07:03 Resp 18 02/02/23 07:03 BP 146/86 H 02/02/23 07:03 Pulse Ox 93 02/02/23 07:03 O2 Del Method Room Air 02/02/23 07:03 O2 Flow Rate 2 01/31/23 19:04 BMI result Body Mass Index 32.3 Gen: in no acute distress HEENT: sclera anicteric, moist mucus membranes Neck: supple Lungs: clear to auscultation bilaterally Heart: tachycardic, no murmurs Abd: soft, non-tender, non-distended Ext: no edema Skin: warm/well-perfused Neuro: alert and oriented x3, no focal findings Psych: appropriate affect Objective Data Active Medications Acetaminophen (Acetaminophen 325 Mg Tablet) 650 mg PO Q6H PRN PRN Reason: Pain, Mild (Pain Scale 1-3) Acyclovir (Acyclovir 200 Mg Capsule) 400 mg PO BID [facility] Last Admin: 02/02/23 08:27 Dose: 400 mg Documented By: SHARITA Atorvastatin Calcium (Atorvastatin Calcium 10 Mg Tablet) 10 mg PO BEDTIME [facility] Last Admin: 02/01/23 20:55 Dose: 10 mg Documented By: EASTON Benzonatate (Benzonatate 100 Mg Capsule) 100 mg PO TID PRN PRN Reason: Cough Buprenorphine/Naloxone (Buprenorphine/Naloxone 8/2 Mg Film) 2 film BUCCAL DAILY [facility] Last Admin: 02/02/23 08:26 Dose: 2 film Documented By: SHARITA Buspirone HCl (Buspirone Hcl 5 Mg Tablet) 5 mg PO BID [facility] Last Admin: 02/02/23 08:27 Dose: 5 mg Documented By: SHARITA Cyclobenzaprine HCl (Cyclobenzaprine Hcl 10 Mg Tablet) 10 mg PO TID PRN PRN Reason: Muscle Spasm Dextrose (Dextrose 50 % 25 Gm/50 Ml Syringe) 25 gm IVPUSH Q15M PRN; Protocol PRN Reason: per Hypoglycemia Standing Ord. Docusate Sodium (Docusate Sodium 100 Mg Capsule) 100 mg PO DAILY PRN PRN Reason: Constipation Enoxaparin Sodium (Enoxaparin Sodium 40 Mg/0.4 Ml Syringe) 40 mg SUBCUT Q24H [facility] Last Admin: 02/01/23 17:34 Dose: 40 mg Documented By: KEVIN Famotidine (Famotidine 20 Mg Tablet) 20 mg PO BID [facility] Last Admin: 02/02/23 08:27 Dose: 20 mg Documented By: SHARITA Finasteride (Finasteride 5 Mg Tablet) 5 mg PO DAILY [facility] Last Admin: 02/02/23 08:28 Dose: 5 mg Documented By: SHARITA Folic Acid (Folic Acid 1 Mg Tablet) 1 mg PO DAILY [facility] Stop: 02/03/23 15:39 Last Admin: 02/02/23 08:27 Dose: 1 mg Documented By: SHARITA Gabapentin (Gabapentin 400 Mg Capsule) 1,200 mg PO TID [facility] Last Admin: 02/02/23 08:27 Dose: 1,200 mg Documented By: SHARITA Glucose (Glucose Gel 15 Gm Gel..Gram.) 15 gm PO Q15M PRN; Protocol PRN Reason: per Hypoglycemia Standing Ord. Hydroxyzine HCl (Hydroxyzine Hcl 25 Mg Tablet) 25 mg PO BEDTIME [facility] Last Admin: 02/01/23 20:56 Dose: 25 mg Documented By: AL Lactated Ringer's (Lr) 1,000 mls @ 100 mls/hr IVCONT .Q10H [facility] Last Admin: 02/02/23 08:50 Dose: Not Given Documented By: SHARITA Non-Admin Reason: Patient Refused Insulin Human Lispro (Insulin Lispro 100 Unit/Ml 3 Ml Vial) 0 unit SUBCUT QIDACHS [facility]; Protocol Last Admin: 02/02/23 08:49 Dose: Not Given Documented By: SHARITA Non-Admin Reason: No Insulin Coverage Lisinopril (Lisinopril 2.5 Mg Tablet) 2.5 mg PO DAILY [facility]; Protocol Last Admin: 02/02/23 08:27 Dose: 2.5 mg Documented By: SHARITA Metoprolol Succinate (Metoprolol Succinate Er 25 Mg Tab.Er.24h) 25 mg PO BEDTIME [facility]; Protocol Last Admin: 02/01/23 20:55 Dose: 25 mg Documented By: AL Multivitamins/Vitamin C (Multivitamin Tablet) 1 tab PO DAILY [facility] Stop: 02/03/23 15:39 Last Admin: 02/02/23 08:27 Dose: 1 tab Documented By: SHARITA Nicotine (Nicotine 21 Mg Patch.Td24) 21 mg TRANSDERMA DAILY [facility] Last Admin: 02/02/23 08:34 Dose: 21 mg Documented By: SHARITA Ondansetron HCl (Ondansetron Hcl 4 Mg/2 Ml Vial) 4 mg IVPUSH Q8H PRN PRN Reason: Nausea and Vomiting Pharmacy Consult (Consult Rx Etoh Phenob Im/Po) 1 each MISCELLANE ONCE PRN; Protocol PRN Reason: Consult order Phenobarbital (Phenobarbital 15 Mg Tablet) 45 mg PO BID [facility]; Protocol Stop: 02/02/23 21:01 Last Admin: 02/02/23 08:26 Dose: 45 mg Documented By: SHARITA Phenobarbital (Phenobarbital 30 Mg Tablet) 30 mg PO BID [facility]; Protocol Stop: 02/04/23 21:01 Phenobarbital (Phenobarbital 30 Mg Tablet) 30 mg PO DAILY [facility]; Protocol Stop: 02/06/23 09:01 Polyethylene Glycol (Polyethylene Glycol 3350 17 Gm Powd.Pack) 17 gm PO DAILY [facility] Last Admin: 02/02/23 08:26 Dose: 17 gm Documented By: SHARITA Senna/Docusate Sodium (Sennosides/Docusate Sodium Tablet) 2 tab PO BID [facility] Last Admin: 02/02/23 08:27 Dose: 2 tab Documented By: SHARITA Sodium Chloride (0.9 % Sodium Chloride Flush 3 Ml Syringe) 3 ml IVFLUSH [facility] Last Admin: 02/02/23 08:53 Dose: 3 ml Documented By: SHARITA Tamsulosin HCl (Tamsulosin Hcl 0.4 Mg Capsule) 0.8 mg PO BEDTIME [facility] Last Admin: 02/01/23 20:57 Dose: 0.8 mg Documented By: AL Thiamine HCl (Thiamine Hcl 100 Mg Tablet) 100 mg PO DAILY [facility] Stop: 02/04/23 08:59 Last Admin: 02/02/23 08:27 Dose: 100 mg Documented By: HO.GUILMAT Trazodone HCl (Trazodone Hcl 100 Mg Tablet) 300 mg PO BEDTIME [facility] Last Admin: 02/01/23 20:56 Dose: 300 mg Documented By: AL Labs 01/31/23 11:22 02/02/23 05:43 Labs: Laboratory Results - last 24 hr 02/01/23 02/01/23 02/01/23 11:14 13:30 16:37 Hold Purple Top Anion Gap Estim Creat Clear Calc Estimated GFR POC Glucose 139 H 138 H Random Glucose Calcium Total Bilirubin AST ALT Alkaline Phosphatase Total Protein Albumin Urine Color Dark Yellow Urine Appearance Clear Urine pH 6.0 Ur Specific [place] 1.025 Urine Protein 100 (2+) H Urine Glucose (UA) 250 H Urine Ketones Trace Urine Blood Large (3+) H Urine Nitrite Negative Ur Leukocyte Esterase Trace H Urine RBC >20 H Urine WBC 0-5 Ur Squamous Epith Cells 0-2 Urine Bacteria None Seen Hyaline Casts 0-2 Urine Opiates Screen Not Detected Urine Fentanyl Screen Not Detected Ur Barbiturates Screen POSITIVE H Ur Phencyclidine Scrn Not Detected Ur Amphetamines Screen Not Detected U Benzodiazepines Scrn Not Detected Urine Cocaine Screen Not Detected U Marijuana (THC) Screen POSITIVE H 02/01/23 02/02/23 02/02/23 20:40 05:43 07:21 Hold Purple Top SEE NOTE Anion Gap 11 L Estim Creat Clear Calc 125.8 Estimated GFR > 60 POC Glucose 142 H 140 H Random Glucose 119 H Calcium 8.3 L Total Bilirubin 1.1 H AST 97 H ALT 47 H Alkaline Phosphatase 70 Total Protein 6.1 L Albumin 3.2 L Urine Color Urine Appearance Urine pH Ur Specific [place] Urine Protein Urine Glucose (UA) Urine Ketones Urine Blood Urine Nitrite Ur Leukocyte Esterase Urine RBC Urine WBC Ur Squamous Epith Cells Urine Bacteria Hyaline Casts Urine Opiates Screen Urine Fentanyl Screen Ur Barbiturates Screen Ur Phencyclidine Scrn Ur Amphetamines Screen U Benzodiazepines Scrn Urine Cocaine Screen U Marijuana (THC) Screen Assessment and Plan (1) Alcohol withdrawal syndrome: Status: Acute Plan d3 62yo M with AUD presenting with acute withdrawal acute EtOH withdrawal, hx of withdrawal seizures - continue phenobarbital taper for high-risk withdrawal, thiamine, Addiction Medicine consult pending HTN - metoprolol, lisinopril DM2 - steve-dose lispro HLD - statin BPH - finasteride, tamuslosin OUD - Suboxone constipation - bowel regimen tobacco abuse - NRT mood disorder - buspirone, hydroxzine, tamsulosin chronic pain - gabapentin, cyclobenzaprine VTE ppx - LMWH dispo - eventual home In my clinical judgment, the patient requires continued inpatient hospitalization for the following reasons: severe, high-risk alcohol withdrawal Total time managing care of this patient today: 35 minutes. Quality Stroke Does the patient have a stroke diagnosis?: No VTE Prior VTE?: No VTE Risk Level:: Medical - moderate - high VTE Device Contraindication: Treatment Not Indicated VTE Drug Contraindication: N/A - Med Ordered
[2023-02-02 11:24] LABS: Glucose, Whole Blood 129 mg/dL (60-115)
[2023-02-02 12:00] VITALS: BP 131/82; PULSE 116; RESP 18; TEMP 36.9; O2SAT 92
[2023-02-02] MEDS: Lactulose 20 GM/30 ML SOLUTION PO (13:25)
[2023-02-02] MEDS: bisacodyL 5 MG TABLET.DR 10 MG PO (13:25)
--- NOTE | 2023-02-02 14:19 | MHC.RECOVRN ---
RN met with patient in room 471-1 for Addiction Medicine Consult for Alcohol Use Disorder. Patient sitting upright in bed. He is A+Ox3, pleasant and cooperative. Patient reports drinking 20 beers + Eriberto Moran per day. Last drink 01/31 at 6:30am. He started drinking alcohol at 15 years old, and has been successful with long periods of abstinence. He reports he is currently doing fine on the Phenobarbital 45mg PO. He does admit to some bloating/cramping and constipation (which is being addressed w/mild laxative). He also reports occasionally feeling shaky and nervous . Mild tremor noted in bilat. hands. Patient's goal is to stop drinking all together. He admits to feeling the toll it's taken on his body. Discussed recovery support options- he reports he is not interested in going to an inpatient program as he doesn't want to be away from his dog for too long. He is interested in trialling medication, but isn't sure which one. RN provided him with [facility] brochure, Recovery Options Form, and Medication for Alcohol use disorder form for him to review. He reports that he takes Suboxone for a history of Opiate Use Disorder which he goes to Dr[facility] Jarret [facility] for. [facility] checked- Patient prescribed 56 days of Buprenorphine-Naloxone 8-2mh films on 01/01/2023. Tolerating dose without issue. He is also interested in additional supports for the social aspect of recovery. Provided him with brochure for [facility]. Discussed with Tash Yi APRN.
[2023-02-02] MEDS: Docusate Sodium 100 MG CAPSULE PO (15:06)
--- NOTE | 2023-02-02 15:07 | PC.NURSE ---
patient complaining of abdominal pain, upper central abdominal tenderness, no bm for more than a week, no flatus today, abdomen distended.
[2023-02-02 15:45] VITALS: BP 135/86; PULSE 110; RESP 18; TEMP 36.6; O2SAT 93
[2023-02-02 16:24] LABS: Glucose, Whole Blood 186 mg/dL (60-115)
[2023-02-02] MEDS: Enoxaparin Sodium 40 MG/0.4 ML SYRINGE SUBCUT (17:00)
[2023-02-02] MEDS: Insulin Lispro 100 UNIT/ML 3 ML VIAL SUBCUT (17:01)
[2023-02-02 19:28] VITALS: BP 141/84; PULSE 98; RESP 18; TEMP 36.7; O2SAT 93
[2023-02-02 20:49] LABS: Glucose, Whole Blood 160 mg/dL (60-115)
[2023-02-02] MEDS: Tamsulosin HCL 0.4 MG CAPSULE 0.8 MG PO (21:56)
[2023-02-02] MEDS: Atorvastatin Calcium 10 MG TABLET PO (21:57)
[2023-02-02] MEDS: hydrOXYzine HCL 25 MG TABLET PO (21:58)
[2023-02-02] MEDS: Metoprolol Succinate ER 25 MG TAB.ER.24H PO (21:58)
[2023-02-02] MEDS: traZODone HCL 100 MG TABLET 300 MG PO (21:59)
[2023-02-02] MEDS: Simethicone 80 MG TAB.CHEW PO (22:35)
[2023-02-03] VITALS (7 sets, daily range): BP systolic 117–148; BP diastolic 70–92; PULSE 98–115; RESP 17–20; TEMP 36.6–37.1; O2SAT 93–97
[2023-02-03 06:35] LABS: Anion Gap 10 (12-20); Blood Urea Nitrogen 7 mg/dL (9-16); Calcium 8.9 mg/dL (8.4-10.2); Carbon Dioxide 30 mmol/L (22-29); Chloride 100 mmol/L (96-108); Creatinine Clr Calc Pharmacy 122.3; Estimated Glomerular Filt Rate > 60; Glucose Random 126 mg/dL (60-115); Sodium 136 mmol/L (135-145)
[2023-02-03 07:21] LABS: Glucose, Whole Blood 123 mg/dL (60-115)
[2023-02-03] MEDS: Nicotine 21 MG PATCH.TD24 TRANSDERMA (08:13)
[2023-02-03] MEDS: Acyclovir 200 MG CAPSULE 400 MG PO ×2 (08:14→20:01)
[2023-02-03] MEDS: Buprenorphine/Naloxone 8/2 mg FILM 2 FILM BUCCAL (08:14)
[2023-02-03] MEDS: Sennosides/Docusate Sodium TABLET 2 TAB PO ×2 (08:14→20:00)
[2023-02-03] MEDS: lisinopriL 2.5 MG TABLET PO (08:14)
[2023-02-03] MEDS: Finasteride 5 MG TABLET PO (08:14)
[2023-02-03] MEDS: Folic Acid 1 MG TABLET PO (08:14)
[2023-02-03] MEDS: Simethicone 80 MG TAB.CHEW PO ×2 (08:14→14:03)
[2023-02-03] MEDS: polyethylene glycoL 3350 17 GM POWD.PACK PO ×2 (08:14→19:59)
[2023-02-03] MEDS: Gabapentin 400 MG CAPSULE 1200 MG PO ×3 (08:14→20:00)
[2023-02-03] MEDS: Thiamine HCL 100 MG TABLET PO (08:15)
[2023-02-03] MEDS: 0.9 % Sodium Chloride Flush 3 ML SYRINGE IVFLUSH ×3 (08:15→20:03)
[2023-02-03] MEDS: Famotidine 20 MG TABLET PO (08:15)
[2023-02-03] MEDS: PHENobarbitaL 30 MG TABLET PO ×2 (08:15→20:01)
[2023-02-03] MEDS: Multivitamin TABLET 1 TAB PO (08:15)
[2023-02-03] MEDS: busPIRone HCl 5 MG TABLET PO ×2 (08:15→20:01)
--- NOTE | 2023-02-03 10:44 | P.PNIM_ITS ---
Subjective Subjective Date of Service: 02/03/23 Interval History: tremor improved met with [employer] constipation improved c/o epigastric discomfort Review of Systems Review of Systems: Yes all other systems are reviewed and are negative Physical Exam 2 Vital Signs: Vital Signs: Last Vital Signs Temp 98.0 F 02/03/23 07:32 Pulse 108 H 02/03/23 07:32 Resp 18 02/03/23 07:32 BP 145/88 H 02/03/23 07:32 Pulse Ox 94 02/03/23 07:32 O2 Del Method Room Air 02/03/23 07:32 O2 Flow Rate 2 01/31/23 19:04 BMI result Body Mass Index 32.3 Gen: in no acute distress HEENT: sclera anicteric, moist mucus membranes Neck: supple Lungs: clear to auscultation bilaterally Heart: tachycardic, no murmurs Abd: soft, non-tender, non-distended Ext: no edema Skin: warm/well-perfused Neuro: alert and oriented x3, no focal findings Psych: appropriate affect Objective Data Active Medications Acetaminophen (Acetaminophen 325 Mg Tablet) 650 mg PO Q6H PRN PRN Reason: Pain, Mild (Pain Scale 1-3) Acyclovir (Acyclovir 200 Mg Capsule) 400 mg PO BID COUNT [facility]CLUDES [facility] Last Admin: 02/03/23 08:14 Dose: 400 mg Documented By: EVITA Atorvastatin Calcium (Atorvastatin Calcium 10 Mg Tablet) 10 mg PO BEDTIME COUNT [facility]CLUDES [facility] Last Admin: 02/02/23 21:57 Dose: 10 mg Documented By: LUCY Benzonatate (Benzonatate 100 Mg Capsule) 100 mg PO TID PRN PRN Reason: Cough Buprenorphine/Naloxone (Buprenorphine/Naloxone 8/2 Mg Film) 2 film BUCCAL DAILY COUNT INCLUDES [facility] Last Admin: 02/03/23 08:14 Dose: 2 film Documented By: EVITA Buspirone HCl (Buspirone Hcl 5 Mg Tablet) 5 mg PO BID COUNT INCLUDES [facility] Last Admin: 02/03/23 08:15 Dose: 5 mg Documented By: EVITA Cyclobenzaprine HCl (Cyclobenzaprine Hcl 10 Mg Tablet) 10 mg PO TID PRN PRN Reason: Muscle Spasm Dextrose (Dextrose 50 % 25 Gm/50 Ml Syringe) 25 gm IVPUSH Q15M PRN; Protocol PRN Reason: per Hypoglycemia Standing Ord. Docusate Sodium (Docusate Sodium 100 Mg Capsule) 100 mg PO DAILY PRN PRN Reason: Constipation Last Admin: 02/02/23 15:06 Dose: 100 mg Documented By: SHARITA Enoxaparin Sodium (Enoxaparin Sodium 40 Mg/0.4 Ml Syringe) 40 mg SUBCUT Q24H COUNT INCLUDES [facility] Last Admin: 02/02/23 17:00 Dose: 40 mg Documented By: SHARITA Finasteride (Finasteride 5 Mg Tablet) 5 mg PO DAILY COUNT [facility]CLUDES [facility] Last Admin: 02/03/23 08:14 Dose: 5 mg Documented By: EVITA Folic Acid (Folic Acid 1 Mg Tablet) 1 mg PO DAILY COUNT [facility]CLUDES [facility] Stop: 02/03/23 15:39 Last Admin: 02/03/23 08:14 Dose: 1 mg Documented By: EVITA Gabapentin (Gabapentin 400 Mg Capsule) 1,200 mg PO TID COUNT [facility]CLUDES [facility] Last Admin: 02/03/23 08:14 Dose: 1,200 mg Documented By: EVITA Glucose (Glucose Gel 15 Gm Gel..Gram.) 15 gm PO Q15M PRN; Protocol PRN Reason: per Hypoglycemia Standing Ord. Hydroxyzine HCl (Hydroxyzine Hcl 25 Mg Tablet) 25 mg PO BEDTIME COUNT [facility]CLUDES [facility] Last Admin: 02/02/23 21:58 Dose: 25 mg Documented By: LUCY Insulin Human Lispro (Insulin Lispro 100 Unit/Ml 3 Ml Vial) 0 unit SUBCUT QIDACHS COUNT INCLUDES [facility]; Protocol Last Admin: 02/03/23 08:15 Dose: Not Given Documented By: EVITA Non-Admin Reason: No Insulin Coverage Lisinopril (Lisinopril 2.5 Mg Tablet) 2.5 mg PO DAILY COUNT INCLUDES [facility]; Protocol Last Admin: 02/03/23 08:14 Dose: 2.5 mg Documented By: EVITA Metoprolol Succinate (Metoprolol Succinate Er 25 Mg Tab.Er.24h) 25 mg PO BEDTIME COUNT [facility]CLUDES [facility]; Protocol Last Admin: 02/02/23 21:58 Dose: 25 mg Documented By: LUCY Multivitamins/Vitamin C (Multivitamin Tablet) 1 tab PO DAILY COUNT INCLUDES [facility] Stop: 02/03/23 15:39 Last Admin: 02/03/23 08:15 Dose: 1 tab Documented By: EVITA Nicotine (Nicotine 21 Mg Patch.Td24) 21 mg TRANSDERMA DAILY COUNT [facility]CLUDES [facility] Last Admin: 02/03/23 08:13 Dose: 21 mg Documented By: EVITA Nicotine Polacrilex (Nicotine Polacrilex 2 Mg Gum) 2 mg BUCCAL Q1H PRN PRN Reason: nicotine crave Omeprazole (Omeprazole 20 Mg Capsule.Dr) 20 mg PO BID@0630,1630 COUNT [facility]CLUDES [facility] Ondansetron HCl (Ondansetron Hcl 4 Mg/2 Ml Vial) 4 mg IVPUSH Q8H PRN PRN Reason: Nausea and Vomiting Pharmacy Consult (Consult Rx Etoh Phenob Im/Po) 1 each MISCELLANE ONCE PRN; Protocol PRN Reason: Consult order Phenobarbital (Phenobarbital 30 Mg Tablet) 30 mg PO BID COUNT [facility]CLUDES [facility]; Protocol Stop: 02/04/23 21:01 Last Admin: 02/03/23 08:15 Dose: 30 mg Documented By: EVITA Phenobarbital (Phenobarbital 30 Mg Tablet) 30 mg PO DAILY COUNT [facility]CLUDES [facility]; Protocol Stop: 02/06/23 09:01 Polyethylene Glycol (Polyethylene Glycol 3350 17 Gm Powd.Pack) 17 gm PO BID COUNT INCLUDES [facility] Last Admin: 02/03/23 08:14 Dose: 17 gm Documented By: EVITA Senna/Docusate Sodium (Sennosides/Docusate Sodium Tablet) 2 tab PO BID COUNT [facility]CLUDES [facility] Last Admin: 02/03/23 08:14 Dose: 2 tab Documented By: EVITA Simethicone (Simethicone 80 Mg Tab.Chew) 80 mg PO QIDWMHS PRN PRN Reason: Heartburn Last Admin: 02/03/23 08:14 Dose: 80 mg Documented By: EVITA Sodium Chloride (0.9 % Sodium Chloride Flush 3 Ml Syringe) 3 ml IVFLUSH QSHIFT COUNT INCLUDES [facility] Last Admin: 02/03/23 08:15 Dose: 3 ml Documented By: EVITA Tamsulosin HCl (Tamsulosin Hcl 0.4 Mg Capsule) 0.8 mg PO BEDTIME COUNT [facility]CLUDES [facility] Last Admin: 02/02/23 21:56 Dose: 0.8 mg Documented By: LUCY Thiamine HCl (Thiamine Hcl 100 Mg Tablet) 100 mg PO DAILY COUNT [facility]CLUDES [facility] Stop: 02/04/23 08:59 Last Admin: 02/03/23 08:15 Dose: 100 mg Documented By: EVITA Trazodone HCl (Trazodone Hcl 100 Mg Tablet) 300 mg PO BEDTIME [facility] Last Admin: 02/02/23 21:59 Dose: 300 mg Documented By: LUCY Labs 01/31/23 11:22 02/03/23 05:34 Labs: Laboratory Results - last 24 hr 02/02/23 02/02/23 02/02/23 11:11 16:20 20:39 Hold Purple Top Anion Gap Estim Creat Clear Calc Estimated GFR POC Glucose 129 H 186 H 160 H Random Glucose Calcium 02/03/23 02/03/23 05:34 07:09 Hold Purple Top SEE NOTE Anion Gap 10 L Estim Creat Clear Calc 122.3 Estimated GFR > 60 POC Glucose 123 H Random Glucose 126 H Calcium 8.9 D Assessment and Plan (1) Alcohol withdrawal syndrome: Status: Acute Plan d4 62yo M with AUD presenting with acute withdrawal acute EtOH withdrawal, hx of withdrawal seizures - continue phenobarbital taper for high-risk withdrawal, thiamine, Addiction Medicine consulted and pt to consider MAT EtOH gastritis - change H2RA to PPI HTN - metoprolol, lisinopril DM2 - steve-dose lispro HLD - statin BPH - finasteride, tamuslosin OUD - Suboxone constipation - bowel regimen tobacco abuse - NRT mood disorder - buspirone, hydroxzine, tamsulosin chronic pain - gabapentin, cyclobenzaprine VTE ppx - LMWH dispo - PT consult In my clinical judgment, the patient requires continued inpatient hospitalization for the following reasons: severe, high-risk alcohol withdrawal Total time managing care of this patient today: 35 minutes. Quality Stroke Does the patient have a stroke diagnosis?: No VTE Prior VTE?: No VTE Risk Level:: Medical - moderate - high VTE Device Contraindication: Treatment Not Indicated VTE Drug Contraindication: N/A - Med Ordered
[2023-02-03 10:57] LABS: Glucose, Whole Blood 167 mg/dL (60-115)
[2023-02-03] MEDS: Nicotine Polacrilex 2 MG GUM BUCCAL ×4 (11:25→23:54)
[2023-02-03] MEDS: Omeprazole 20 MG CAPSULE.DR PO ×2 (11:25→16:15)
[2023-02-03] MEDS: Magnesium Hydrox/Alum Hydrox 30 ML ORAL.SUSP PO (11:25)
--- NOTE | 2023-02-03 13:03 | MHC.RECOVRN ---
Followed up with pt in [place]ards to [facility] information left with him yesterday. ?Pt. alert and oriented and up eating lunch. Actively engaging in conversation. Pt reports that [facility] and may be interested in persuing [facility] in the future but wants to pause right now due to medical issues. He did identify numerous non medicinal interventions that have helped in the past with his Alcohol cessation such as meetings and peer support. Recovery Support services were explained to patient and he is interested so referral will be placed. Pt. was left with [facility] resources and phone number to call for additional support needs. Tash Yi NP updated on visit.
[2023-02-03] MEDS: Enoxaparin Sodium 40 MG/0.4 ML SYRINGE SUBCUT (14:02)
[2023-02-03] MEDS: Insulin Lispro 100 UNIT/ML 3 ML VIAL SUBCUT ×2 (16:15→20:03)
[2023-02-03 16:19] LABS: Glucose, Whole Blood 171 mg/dL (60-115)
[2023-02-03] MEDS: Lactulose 20 GM/30 ML SOLUTION 30 GM PO ×2 (16:26→20:03)
[2023-02-03 19:51] LABS: Glucose, Whole Blood 163 mg/dL (60-115)
[2023-02-03] MEDS: Tamsulosin HCL 0.4 MG CAPSULE 0.8 MG PO (20:00)
[2023-02-03] MEDS: Atorvastatin Calcium 10 MG TABLET PO (20:01)
[2023-02-03] MEDS: Metoprolol Succinate ER 25 MG TAB.ER.24H PO (20:01)
[2023-02-03] MEDS: hydrOXYzine HCL 25 MG TABLET PO (20:02)
[2023-02-03] MEDS: traZODone HCL 100 MG TABLET 300 MG PO (20:05)
[2023-02-03] MEDS: Barium Sulfate Oral (Mocha) 450 ML ORAL.SUSP 900 ML PO (21:00)
[2023-02-03] MEDS: iohexoL 350 MG/ML 100 ML INFUS..BTL IV (21:00)
[2023-02-04] MEDS: Acetaminophen 325 MG TABLET 650 MG PO ×3 (02:41→23:56)
[2023-02-04 04:00] VITALS: BP 137/79; PULSE 106; RESP 18; TEMP 36.6; O2SAT 92
[2023-02-04] MEDS: PHENobarbitaL 30 MG TABLET PO ×2 (06:24→19:35)
[2023-02-04] MEDS: Simethicone 80 MG TAB.CHEW PO ×3 (06:25→18:05)
[2023-02-04] MEDS: Nicotine Polacrilex 2 MG GUM BUCCAL ×5 (06:25→22:36)
[2023-02-04] MEDS: Omeprazole 20 MG CAPSULE.DR PO ×2 (06:25→16:52)
[2023-02-04 07:26] LABS: Glucose, Whole Blood 157 mg/dL (60-115)
[2023-02-04 07:37] VITALS: BP 138/83; PULSE 96; RESP 18; TEMP 36.2; O2SAT 93
[2023-02-04] MEDS: Lactulose 20 GM/30 ML SOLUTION 30 GM PO ×2 (07:51→19:35)
[2023-02-04] MEDS: polyethylene glycoL 3350 17 GM POWD.PACK PO ×2 (07:53→19:37)
[2023-02-04] MEDS: busPIRone HCl 5 MG TABLET PO ×2 (07:54→19:35)
[2023-02-04] MEDS: Sennosides/Docusate Sodium TABLET 2 TAB PO ×2 (07:54→19:34)
[2023-02-04] MEDS: lisinopriL 2.5 MG TABLET PO (07:54)
[2023-02-04] MEDS: Nicotine 21 MG PATCH.TD24 TRANSDERMA (07:54)
[2023-02-04] MEDS: Acyclovir 200 MG CAPSULE 400 MG PO ×2 (07:54→19:34)
[2023-02-04] MEDS: Finasteride 5 MG TABLET PO (07:54)
[2023-02-04] MEDS: Gabapentin 400 MG CAPSULE 1200 MG PO ×3 (07:54→19:34)
[2023-02-04] MEDS: Insulin Lispro 100 UNIT/ML 3 ML VIAL SUBCUT (07:55)
[2023-02-04] MEDS: Buprenorphine/Naloxone 8/2 mg FILM 2 FILM BUCCAL (07:55)
[2023-02-04] MEDS: 0.9 % Sodium Chloride Flush 3 ML SYRINGE IVFLUSH ×2 (08:01→19:36)
[2023-02-04 09:04] LABS: Hematocrit 36.7 % (42.0-52.0); Hemoglobin 12.7 g/dl (14.0-18.0); Mean Corpuscular HGB Conc 34.6 g/dl (31.0-36.0); Mean Corpuscular Hemoglobin 31.8 pg (27.0-33.0); Mean Platelet Volume 10.6 fL (9.4-12.4); Platelet Count 155 X10*3/uL (160-400); Red Blood Count 3.99 X10*6/uL (4.60-5.80); Red Cell Distribution Width 13.7 % (11.0-16.0); White Blood Count 10.9 X10*3/uL (4.8-10.8)
[2023-02-04 09:28] LABS: Alanine Aminotransferase 32 U/L (0-40); Albumin Level 3.4 g/dL (3.5-5.0); Alkaline Phosphatase 61 U/L (39-117); Anion Gap 11 (12-20); Aspartate Amino Transferase 33 U/L (5-37); Bilirubin Total 0.7 mg/dL (0.0-1.0); Blood Urea Nitrogen 6 mg/dL (9-16); Carbon Dioxide 28 mmol/L (22-29); Chloride 101 mmol/L (96-108); Creatinine Clr Calc Pharmacy 108.9; Estimated Glomerular Filt Rate > 60; Glucose Random 196 mg/dL (60-115); Lactate Dehydrogenase 187 U/L (118-273); Lipase 96 U/L (8-78); Potassium 3.6 mmol/L (3.3-5.1); Sodium 136 mmol/L (135-145); Total Protein 6.5 g/dL (6.5-8.0)
[2023-02-04] MEDS: Morphine Sulfate 2 MG/ML CARTRIDGE 4 MG IVPUSH (10:31)
[2023-02-04] MEDS: Lactated Ringers 1,000 ML 125 ML IVCONT ×2 (10:32→18:05)
--- NOTE | 2023-02-04 11:11 | MHC.CM.PN ---
EMR REVIEWED, PER HOSPITALIST PT NOW W/PANCREATITIS, NO PLAN FOR DC AT THIS TIME, CM WILL CONT TO FOLLOW DC NEEDS.
[2023-02-04 11:20] LABS: Glucose, Whole Blood 155 mg/dL (60-115)
[2023-02-04 11:22] VITALS: BP 149/80; PULSE 92; RESP 18; TEMP 36.3; O2SAT 96
--- NOTE | 2023-02-04 11:56 | P.PNIM_ITS ---
Subjective Subjective Date of Service: 02/04/23 Interval History: c/o severe epigastric pain CT showed acute pancreatitis, no prior hx of this tremor improved Review of Systems Review of Systems: Yes all other systems are reviewed and are negative Physical Exam 2 Vital Signs: Vital Signs: Last Vital Signs Temp 97.3 F 02/04/23 11:22 Pulse 92 02/04/23 11:22 Resp 18 02/04/23 11:22 BP 149/80 H 02/04/23 11:22 Pulse Ox 96 02/04/23 11:22 O2 Del Method Room Air 02/04/23 11:22 O2 Flow Rate 2 01/31/23 19:04 BMI result Body Mass Index 32.3 Gen: in no acute distress HEENT: sclera anicteric, moist mucus membranes Neck: supple Lungs: clear to auscultation bilaterally Heart: tachycardic, no murmurs Abd: soft, non-tender, non-distended Ext: no edema Skin: warm/well-perfused Neuro: alert and oriented x3, no focal findings Psych: appropriate affect Objective Data Active Medications Acetaminophen (Acetaminophen 325 Mg Tablet) 650 mg PO Q6H PRN PRN Reason: Pain, Mild (Pain Scale 1-3) Last Admin: 02/04/23 02:41 Dose: 650 mg Documented By: MARIA DOLORES Acyclovir (Acyclovir 200 Mg Capsule) 400 mg PO BID [facility] Last Admin: 02/04/23 07:54 Dose: 400 mg Documented By: TONIE Atorvastatin Calcium (Atorvastatin Calcium 10 Mg Tablet) 10 mg PO BEDTIME [facility] Last Admin: 02/03/23 20:01 Dose: 10 mg Documented By: MARIA DOLORES Benzonatate (Benzonatate 100 Mg Capsule) 100 mg PO TID PRN PRN Reason: Cough Buprenorphine/Naloxone (Buprenorphine/Naloxone 8/2 Mg Film) 2 film BUCCAL DAILY [facility] Last Admin: 02/04/23 07:55 Dose: 2 film Documented By: TONIE Buspirone HCl (Buspirone Hcl 5 Mg Tablet) 5 mg PO BID [facility] Last Admin: 02/04/23 07:54 Dose: 5 mg Documented By: TONIE Cyclobenzaprine HCl (Cyclobenzaprine Hcl 10 Mg Tablet) 10 mg PO TID PRN PRN Reason: Muscle Spasm Dextrose (Dextrose 50 % 25 Gm/50 Ml Syringe) 25 gm IVPUSH Q15M PRN; Protocol PRN Reason: per Hypoglycemia Standing Ord. Docusate Sodium (Docusate Sodium 100 Mg Capsule) 100 mg PO DAILY PRN PRN Reason: Constipation Last Admin: 02/02/23 15:06 Dose: 100 mg Documented By: SHARITA Enoxaparin Sodium (Enoxaparin Sodium 40 Mg/0.4 Ml Syringe) 40 mg SUBCUT Q24H [facility] Last Admin: 02/03/23 14:02 Dose: 40 mg Documented By: EVITA Finasteride (Finasteride 5 Mg Tablet) 5 mg PO DAILY [facility] Last Admin: 02/04/23 07:54 Dose: 5 mg Documented By: TONIE Gabapentin (Gabapentin 400 Mg Capsule) 1,200 mg PO TID [facility] Last Admin: 02/04/23 07:54 Dose: 1,200 mg Documented By: TONIE Glucose (Glucose Gel 15 Gm Gel..Gram.) 15 gm PO Q15M PRN; Protocol PRN Reason: per Hypoglycemia Standing Ord. Hydroxyzine HCl (Hydroxyzine Hcl 25 Mg Tablet) 25 mg PO BEDTIME [facility] Last Admin: 02/03/23 20:02 Dose: 25 mg Documented By: MARIA DOLORES Lactated Ringer's (Lr) 1,000 mls @ 125 mls/hr IVCONT .Q8H [facility] Last Admin: 02/04/23 10:32 Dose: 125 mls/hr Documented By: TONIE Insulin Human Lispro (Insulin Lispro 100 Unit/Ml 3 Ml Vial) 0 unit SUBCUT QIDACHS [facility]; Protocol Last Admin: 02/04/23 07:55 Dose: 2 unit Documented By: TONIE Lactulose (Lactulose 20 Gm/30 Ml Solution) 30 gm PO BID [facility] Last Admin: 02/04/23 07:51 Dose: 30 gm Documented By: TONIE Lisinopril (Lisinopril 2.5 Mg Tablet) 2.5 mg PO DAILY [facility]; Protocol Last Admin: 02/04/23 07:54 Dose: 2.5 mg Documented By: TONIE Metoprolol Succinate (Metoprolol Succinate Er 25 Mg Tab.Er.24h) 25 mg PO BEDTIME [facility]; Protocol Last Admin: 02/03/23 20:01 Dose: 25 mg Documented By: MARIA DOLORES Morphine Sulfate (Morphine Sulfate 2 Mg/Ml Cartridge) 4 mg IVPUSH Q2H PRN; Protocol PRN Reason: severe pain Last Admin: 02/04/23 10:31 Dose: 4 mg Documented By: TONIE Nicotine (Nicotine 21 Mg Patch.Td24) 21 mg TRANSDERMA DAILY [facility] Last Admin: 02/04/23 07:54 Dose: 21 mg Documented By: TONIE Nicotine Polacrilex (Nicotine Polacrilex 2 Mg Gum) 2 mg BUCCAL Q1H PRN PRN Reason: nicotine crave Last Admin: 02/04/23 06:25 Dose: 2 mg Documented By: MARIA DOLORES Omeprazole (Omeprazole 20 Mg Capsule.Dr) 20 mg PO BID@0630,1630 [facility] Last Admin: 02/04/23 06:25 Dose: 20 mg Documented By: MARIA DOLORES Ondansetron HCl (Ondansetron Hcl 4 Mg/2 Ml Vial) 4 mg IVPUSH Q8H PRN PRN Reason: Nausea and Vomiting Pharmacy Consult (Consult Rx Etoh Phenob Im/Po) 1 each MISCELLANE ONCE PRN; Protocol PRN Reason: Consult order Phenobarbital (Phenobarbital 30 Mg Tablet) 30 mg PO BID [facility]; Protocol Stop: 02/04/23 21:01 Last Admin: 02/04/23 06:24 Dose: 30 mg Documented By: MARIA DOLORES Comments: okay to give early per md broderick Phenobarbital (Phenobarbital 30 Mg Tablet) 30 mg PO DAILY [facility]; Protocol Stop: 02/06/23 09:01 Polyethylene Glycol (Polyethylene Glycol 3350 17 Gm Powd.Pack) 17 gm PO BID [facility] Last Admin: 02/04/23 07:53 Dose: 17 gm Documented By: TONIE Senna/Docusate Sodium (Sennosides/Docusate Sodium Tablet) 2 tab PO BID [facility] Last Admin: 02/04/23 07:54 Dose: 2 tab Documented By: TONIE Simethicone (Simethicone 80 Mg Tab.Chew) 80 mg PO QIDWMHS PRN PRN Reason: Heartburn Last Admin: 02/04/23 06:25 Dose: 80 mg Documented By: MARIA DOLORES Sodium Chloride (0.9 % Sodium Chloride Flush 3 Ml Syringe) 3 ml IVFLUSH QSHIFT [facility] Last Admin: 02/04/23 08:01 Dose: 3 ml Documented By: TONIE Tamsulosin HCl (Tamsulosin Hcl 0.4 Mg Capsule) 0.8 mg PO BEDTIME [facility] Last Admin: 02/03/23 20:00 Dose: 0.8 mg Documented By: MARIA DOLORES Trazodone HCl (Trazodone Hcl 100 Mg Tablet) 300 mg PO BEDTIME [facility] Last Admin: 02/03/23 20:05 Dose: 300 mg Documented By: MARIA DOLORES Labs 02/04/23 08:53 02/04/23 08:53 Labs: Laboratory Results - last 24 hr 02/03/23 02/03/23 02/04/23 16:05 19:48 07:21 MCV MCH MCHC RDW Plt Count MPV Absolute Nucleated RBC Nucleated RBC % (auto) Anion Gap Estim Creat Clear Calc Estimated GFR POC Glucose 171 H 163 H 157 H Random Glucose Calcium Magnesium Total Bilirubin AST ALT Alkaline Phosphatase Lactate Dehydrogenase Total Protein Albumin Lipase 02/04/23 02/04/23 08:53 11:16 MCV 92.0 MCH 31.8 MCHC 34.6 RDW 13.7 Plt Count 155 L MPV 10.6 Absolute Nucleated RBC 0.000 Nucleated RBC % (auto) 0.0 Anion Gap 11 L Estim Creat Clear Calc 108.9 Estimated GFR > 60 POC Glucose 155 H Random Glucose 196 H Calcium 9.0 Magnesium 2.0 Total Bilirubin 0.7 AST 33 ALT 32 Alkaline Phosphatase 61 Lactate Dehydrogenase 187 Total Protein 6.5 Albumin 3.4 L Lipase 96 H Impressions Abdomen/Pelvis CT 02/03/23 21:17 IMPRESSION: 1. Peripancreatic inflammatory fat stranding surrounding the pancreatic head and uncinate process, suggesting acute interstitial pancreatitis. No loss of peripancreatic enhancement or organized peripancreatic fluid collection. 2. Subacute left anterior seventh through ninth rib fractures. 3. Hepatomegaly and hepatic steatosis. 4. A 5 mm nonobstructing left lower pole renal stone. Assessment and Plan (1) Alcohol withdrawal syndrome: Status: Acute Plan d5 62yo M with AUD presenting with acute withdrawal, also found to have acute pancreatitis acute pancreatitis - likely EtOH. lipase relatively low and no other high-risk features. NPO, IV fluids, prn morphine. once pain controlled, advance diet. acute EtOH withdrawal, hx of withdrawal seizures - continue phenobarbital taper for high-risk withdrawal, thiamine, Addiction Medicine consulted and pt to consider MAT HTN - metoprolol, lisinopril DM2 - steve-dose lispro HLD - statin BPH - finasteride, tamuslosin OUD - Suboxone constipation - bowel regimen tobacco abuse - NRT mood disorder - buspirone, hydroxzine, tamsulosin chronic pain - gabapentin, cyclobenzaprine VTE ppx - LMWH dispo - eventual home In my clinical judgment, the patient requires continued inpatient hospitalization for the following reasons: severe, high-risk alcohol withdrawal; pancreatitis Total time managing care of this patient today: 35 minutes. Quality Stroke Does the patient have a stroke diagnosis?: No VTE Prior VTE?: No VTE Risk Level:: Medical - moderate - high VTE Device Contraindication: Treatment Not Indicated VTE Drug Contraindication: N/A - Med Ordered
[2023-02-04] MEDS: HYDROmorphone HCl 1 MG/ML SYRINGE IVPUSH ×4 (12:47→23:56)
[2023-02-04 15:08] VITALS: BP 150/85; PULSE 102; RESP 20; TEMP 36.6; O2SAT 98
[2023-02-04 16:10] LABS: Glucose, Whole Blood 146 mg/dL (60-115)
[2023-02-04] MEDS: Enoxaparin Sodium 40 MG/0.4 ML SYRINGE SUBCUT (16:52)
[2023-02-04 19:04] VITALS: BP 149/99; PULSE 98; RESP 20; TEMP 36.2; O2SAT 92
[2023-02-04] MEDS: Atorvastatin Calcium 10 MG TABLET PO (19:34)
[2023-02-04] MEDS: traZODone HCL 100 MG TABLET 300 MG PO (19:35)
[2023-02-04] MEDS: hydrOXYzine HCL 25 MG TABLET PO (19:35)
[2023-02-04] MEDS: Tamsulosin HCL 0.4 MG CAPSULE 0.8 MG PO (19:35)
[2023-02-04] MEDS: Metoprolol Succinate ER 25 MG TAB.ER.24H PO (19:35)
[2023-02-04 20:12] LABS: Glucose, Whole Blood 134 mg/dL (60-115)
[2023-02-04 23:39] VITALS: BP 126/76; PULSE 96; RESP 20; TEMP 37.7; O2SAT 95
[2023-02-05] MEDS: Lactated Ringers 1,000 ML 125 ML IVCONT ×3 (01:50→18:12)
[2023-02-05] MEDS: Nicotine Polacrilex 2 MG GUM BUCCAL ×9 (01:52→22:21)
[2023-02-05 03:35] VITALS: BP 149/76; PULSE 118; RESP 20; TEMP 36.2; O2SAT 94
[2023-02-05] MEDS: HYDROmorphone HCl 1 MG/ML SYRINGE IVPUSH (03:46)
[2023-02-05] MEDS: Ketorolac Tromethamine 30 MG/ML VIAL IVPUSH (05:56)
[2023-02-05] MEDS: Omeprazole 20 MG CAPSULE.DR PO ×2 (05:57→17:27)
--- NOTE | 2023-02-05 05:59 | PC.NURSE ---
At start of shift pt with 10/10 pain, pt crying in pain. MD [place] notified. Okay to give PRN Dilaudid 1hr early. Administered with effect, hot packs applied. PRN Dilaudid administered as ordered throughout the night as well as hot packs as needed for discomfort. IVF continued as ordered. At approx 0530 pt continues to complain of severe pain despite PRN meds/heat. notified 1x dose Tordal ordered and administered. Effects pending. NSR to ST on cafeteria monitor.
[2023-02-05 07:26] VITALS: BP 148/85; PULSE 88; RESP 18; TEMP 36.6; O2SAT 96
[2023-02-05 07:41] LABS: Glucose, Whole Blood 148 mg/dL (60-115)
[2023-02-05 08:10] LABS: Hematocrit 35.9 % (42.0-52.0); Hemoglobin 12.1 g/dl (14.0-18.0); Mean Corpuscular HGB Conc 33.7 g/dl (31.0-36.0); Mean Corpuscular Hemoglobin 30.9 pg (27.0-33.0); Mean Corpuscular Volume 91.8 fL (80.0-98.0); Mean Platelet Volume 10.6 fL (9.4-12.4); Platelet Count 185 X10*3/uL (160-400); Red Blood Count 3.91 X10*6/uL (4.60-5.80); Red Cell Distribution Width 13.8 % (11.0-16.0)
[2023-02-05 08:23] LABS: Alanine Aminotransferase 28 U/L (0-40); Albumin Level 3.4 g/dL (3.5-5.0); Alkaline Phosphatase 62 U/L (39-117); Anion Gap 12 (12-20); Aspartate Amino Transferase 27 U/L (5-37); Bilirubin Total 0.6 mg/dL (0.0-1.0); Blood Urea Nitrogen 6 mg/dL (9-16); Carbon Dioxide 29 mmol/L (22-29); Chloride 101 mmol/L (96-108); Estimated Glomerular Filt Rate > 60; Glucose Random 132 mg/dL (60-115); Magnesium 1.9 mg/dL (1.6-2.6); Potassium 3.6 mmol/L (3.3-5.1); Sodium 138 mmol/L (135-145); Total Protein 6.6 g/dL (6.5-8.0)
[2023-02-05] MEDS: Simethicone 80 MG TAB.CHEW PO ×4 (08:38→22:21)
[2023-02-05] MEDS: Acyclovir 200 MG CAPSULE 400 MG PO ×2 (08:39→20:11)
[2023-02-05] MEDS: Gabapentin 400 MG CAPSULE 1200 MG PO ×3 (08:39→20:11)
[2023-02-05] MEDS: Finasteride 5 MG TABLET PO (08:39)
[2023-02-05] MEDS: lisinopriL 2.5 MG TABLET PO (08:39)
[2023-02-05] MEDS: PHENobarbitaL 30 MG TABLET PO (08:39)
[2023-02-05] MEDS: busPIRone HCl 5 MG TABLET PO ×2 (08:39→20:11)
[2023-02-05] MEDS: Morphine Sulfate 4 MG/ML CARTRIDGE IVPUSH ×5 (08:41→22:21)
--- NOTE | 2023-02-05 10:26 | HO.PM.IMPN ---
Subjective Subjective Date of Service: 02/05/23 Interval History: severe pain, not ready to advance diet Physical Exam Vital Signs: Vital Signs: Last Vital Signs Temp 97.8 F 02/05/23 07:26 Pulse 88 02/05/23 07:26 Resp 18 02/05/23 07:26 BP 148/85 H 02/05/23 07:26 Pulse Ox 96 02/05/23 07:26 O2 Del Method Room Air 02/05/23 07:26 O2 Flow Rate 2 01/31/23 19:04 BMI result Body Mass Index 32.3 General: AO X 3, in pain Resp: CTA bilateral, no accessory muscles used CVS: S1,S2,RRR GI: soft, epigatric tender, non distended Neuro: motor grossly intact, alert Psych: appropriate affect, appropriate insight Objective Data Active Medications Acetaminophen (Acetaminophen 325 Mg Tablet) 650 mg PO Q6H PRN PRN Reason: Pain, Mild (Pain Scale 1-3) Last Admin: 02/04/23 23:56 Dose: 650 mg Documented By: MARIA DOLORES Acyclovir (Acyclovir 200 Mg Capsule) 400 mg PO BID [facility] Last Admin: 02/05/23 08:39 Dose: 400 mg Documented By: TONIE Atorvastatin Calcium (Atorvastatin Calcium 10 Mg Tablet) 10 mg PO BEDTIME [facility] Last Admin: 02/04/23 19:34 Dose: 10 mg Documented By: MARIA DOLORES Benzonatate (Benzonatate 100 Mg Capsule) 100 mg PO TID PRN PRN Reason: Cough Buspirone HCl (Buspirone Hcl 5 Mg Tablet) 5 mg PO BID [facility] Last Admin: 02/05/23 08:39 Dose: 5 mg Documented By: TONIE Cyclobenzaprine HCl (Cyclobenzaprine Hcl 10 Mg Tablet) 10 mg PO TID PRN PRN Reason: Muscle Spasm Dextrose (Dextrose 50 % 25 Gm/50 Ml Syringe) 25 gm IVPUSH Q15M PRN; Protocol PRN Reason: per Hypoglycemia Standing Ord. Docusate Sodium (Docusate Sodium 100 Mg Capsule) 100 mg PO DAILY PRN PRN Reason: Constipation Last Admin: 02/02/23 15:06 Dose: 100 mg Documented By: SHARITA Enoxaparin Sodium (Enoxaparin Sodium 40 Mg/0.4 Ml Syringe) 40 mg SUBCUT Q24H [facility] Last Admin: 02/04/23 16:52 Dose: 40 mg Documented By: TONIE Finasteride (Finasteride 5 Mg Tablet) 5 mg PO DAILY [facility] Last Admin: 02/05/23 08:39 Dose: 5 mg Documented By: TONIE Gabapentin (Gabapentin 400 Mg Capsule) 1,200 mg PO TID [facility] Last Admin: 02/05/23 08:39 Dose: 1,200 mg Documented By: TONIE Glucose (Glucose Gel 15 Gm Gel..Gram.) 15 gm PO Q15M PRN; Protocol PRN Reason: per Hypoglycemia Standing Ord. Hydroxyzine HCl (Hydroxyzine Hcl 25 Mg Tablet) 25 mg PO BEDTIME [facility] Last Admin: 02/04/23 19:35 Dose: 25 mg Documented By: MARIA DOLORES Lactated Ringer's (Lr) 1,000 mls @ 125 mls/hr IVCONT .Q8H [facility] Last Admin: 02/05/23 01:50 Dose: 125 mls/hr Documented By: MARIA DOLORES Insulin Human Lispro (Insulin Lispro 100 Unit/Ml 3 Ml Vial) 0 unit SUBCUT QIDACHS [facility]; Protocol Last Admin: 02/05/23 07:50 Dose: Not Given Documented By: TONIE Non-Admin Reason: No Insulin Coverage Lactulose (Lactulose 20 Gm/30 Ml Solution) 30 gm PO BID [facility] Last Admin: 02/05/23 08:11 Dose: Not Given Documented By: TONIE Non-Admin Reason: Not necessary Lisinopril (Lisinopril 2.5 Mg Tablet) 2.5 mg PO DAILY [facility]; Protocol Last Admin: 02/05/23 08:39 Dose: 2.5 mg Documented By: TONIE Metoprolol Succinate (Metoprolol Succinate Er 25 Mg Tab.Er.24h) 25 mg PO BEDTIME [facility]; Protocol Last Admin: 02/04/23 19:35 Dose: 25 mg Documented By: MARIA DOLORES Morphine Sulfate (Morphine Sulfate 4 Mg/Ml Cartridge) 4 mg IVPUSH Q3H PRN; Protocol PRN Reason: Mod pain Last Admin: 02/05/23 08:41 Dose: 4 mg Documented By: TONIE Nicotine (Nicotine 21 Mg Patch.Td24) 21 mg TRANSDERMA DAILY [facility] Last Admin: 02/05/23 08:11 Dose: Not Given Documented By: TONIE Non-Admin Reason: Patient Refused Nicotine Polacrilex (Nicotine Polacrilex 2 Mg Gum) 2 mg BUCCAL Q1H PRN PRN Reason: nicotine crave Last Admin: 02/05/23 08:38 Dose: 2 mg Documented By: TONIE Omeprazole (Omeprazole 20 Mg Capsule.Dr) 20 mg PO BID@0630,1630 [facility] Last Admin: 02/05/23 05:57 Dose: 20 mg Documented By: MARIA DOLORES Ondansetron HCl (Ondansetron Hcl 4 Mg/2 Ml Vial) 4 mg IVPUSH Q8H PRN PRN Reason: Nausea and Vomiting Pharmacy Consult (Consult Rx Etoh Phenob Im/Po) 1 each MISCELLANE ONCE PRN; Protocol PRN Reason: Consult order Phenobarbital (Phenobarbital 30 Mg Tablet) 30 mg PO DAILY [facility]; Protocol Stop: 02/06/23 09:01 Last Admin: 02/05/23 08:39 Dose: 30 mg Documented By: TONIE Polyethylene Glycol (Polyethylene Glycol 3350 17 Gm Powd.Pack) 17 gm PO BID [facility] Last Admin: 02/05/23 08:11 Dose: Not Given Documented By: TONIE Non-Admin Reason: Not necessary/ loose stools Senna/Docusate Sodium (Sennosides/Docusate Sodium Tablet) 2 tab PO BID [facility] Last Admin: 02/05/23 08:11 Dose: Not Given Documented By: TONIE Non-Admin Reason: loose stools/not necessary Simethicone (Simethicone 80 Mg Tab.Chew) 80 mg PO QIDWMHS PRN PRN Reason: Heartburn Last Admin: 02/05/23 08:38 Dose: 80 mg Documented By: TONIE Sodium Chloride (0.9 % Sodium Chloride Flush 3 Ml Syringe) 3 ml IVFLUSH QSHIFT [facility] Last Admin: 02/05/23 08:10 Dose: Not Given Documented By: TONIE Non-Admin Reason: IV Running Tamsulosin HCl (Tamsulosin Hcl 0.4 Mg Capsule) 0.8 mg PO BEDTIME [facility] Last Admin: 02/04/23 19:35 Dose: 0.8 mg Documented By: MARIA DOLORES Trazodone HCl (Trazodone Hcl 100 Mg Tablet) 300 mg PO BEDTIME [facility] Last Admin: 02/04/23 19:35 Dose: 300 mg Documented By: MARIA DOLORES Labs 02/05/23 07:06 02/05/23 07:06 Labs: Laboratory Results - last 24 hr 02/04/23 02/04/23 02/04/23 11:16 16:06 20:06 MCV MCH MCHC RDW Plt Count MPV Absolute Nucleated RBC Nucleated RBC % (auto) Anion Gap Estim Creat Clear Calc Estimated GFR POC Glucose 155 H 146 H 134 H Random Glucose Calcium Magnesium Total Bilirubin AST ALT Alkaline Phosphatase Total Protein Albumin 02/05/23 02/05/23 07:06 07:25 MCV 91.8 MCH 30.9 MCHC 33.7 RDW 13.8 Plt Count 185 MPV 10.6 Absolute Nucleated RBC 0.000 Nucleated RBC % (auto) 0.0 Anion Gap 12 Estim Creat Clear Calc 119.0 Estimated GFR > 60 POC Glucose 148 H Random Glucose 132 H Calcium 9.0 Magnesium 1.9 Total Bilirubin 0.6 AST 27 ALT 28 Alkaline Phosphatase 62 Total Protein 6.6 Albumin 3.4 L Assessment and Plan (1) Alcohol withdrawal syndrome: Status: Acute Plan d6 62yo M with AUD presented with acute withdrawal, also found to have acute pancreatitis acute pancreatitis likely EtOH ivf, morphine iv, advance diet as tolerated EtOH dependence with withdrawal, hx of withdrawal seizures -continue phenobarbital taper for high-risk withdrawal, thiamine, Addiction Medicine consulted and pt to consider MAT HTN metoprolol, lisinopril DM2 steve-dose lispro HLD statin BPH finasteride, tamuslosin OUD Suboxone on hold constipation bowel regimen tobacco abuse NRT mood disorder buspirone, hydroxzine, tamsulosin chronic pain gabapentin, cyclobenzaprine VTE ppx LMWH dispo eventual home reason for continued hospitalization:not tolerating po Total time managing care of this patient today: 35 minutes. Quality Stroke Does the patient have a stroke diagnosis?: No VTE Prior VTE?: No VTE Risk Level:: Medical - moderate - high VTE Device Contraindication: Treatment Not Indicated VTE Drug Contraindication: N/A - Med Ordered
[2023-02-05 11:08] LABS: Glucose, Whole Blood 126 mg/dL (60-115)
[2023-02-05 11:39] VITALS: BP 139/81; PULSE 95; RESP 20; TEMP 36.3; O2SAT 94
[2023-02-05 14:49] VITALS: BP 155/86; PULSE 92; RESP 24; TEMP 36.1; O2SAT 96
[2023-02-05] MEDS: Enoxaparin Sodium 40 MG/0.4 ML SYRINGE SUBCUT (15:17)
[2023-02-05 16:23] LABS: Glucose, Whole Blood 107 mg/dL (60-115)
[2023-02-05 19:37] VITALS: BP 156/91; PULSE 103; RESP 20; TEMP 36.8; O2SAT 97
[2023-02-05 19:42] LABS: Glucose, Whole Blood 128 mg/dL (60-115)
[2023-02-05] MEDS: Sennosides/Docusate Sodium TABLET 2 TAB PO (20:11)
[2023-02-05] MEDS: Metoprolol Succinate ER 25 MG TAB.ER.24H PO (20:11)
[2023-02-05] MEDS: hydrOXYzine HCL 25 MG TABLET PO (20:11)
[2023-02-05] MEDS: traZODone HCL 100 MG TABLET 300 MG PO (20:12)
[2023-02-05] MEDS: Tamsulosin HCL 0.4 MG CAPSULE 0.8 MG PO (20:12)
[2023-02-05] MEDS: Atorvastatin Calcium 10 MG TABLET PO (20:12)
[2023-02-06] VITALS (8 sets, daily range): BP systolic 139–160; BP diastolic 75–94; PULSE 85–100; RESP 16–20; TEMP 36.1–37.2; O2SAT 91–97
[2023-02-06] MEDS: Nicotine Polacrilex 2 MG GUM BUCCAL ×8 (00:23→22:59)
[2023-02-06] MEDS: Lactated Ringers 1,000 ML 125 ML IVCONT ×3 (01:37→20:08)
[2023-02-06] MEDS: Morphine Sulfate 4 MG/ML CARTRIDGE IVPUSH ×7 (01:45→23:16)
[2023-02-06] MEDS: Omeprazole 20 MG CAPSULE.DR PO ×2 (06:14→17:17)
[2023-02-06] MEDS: Simethicone 80 MG TAB.CHEW PO (06:38)
[2023-02-06 07:23] LABS: Glucose, Whole Blood 125 mg/dL (60-115)
[2023-02-06 07:34] LABS: Hematocrit 34.7 % (42.0-52.0); Hemoglobin 11.8 g/dl (14.0-18.0); Mean Corpuscular Hemoglobin 31.7 pg (27.0-33.0); Mean Corpuscular Volume 93.3 fL (80.0-98.0); Platelet Count 210 X10*3/uL (160-400); Red Blood Count 3.72 X10*6/uL (4.60-5.80); Red Cell Distribution Width 13.6 % (11.0-16.0); White Blood Count 8.7 X10*3/uL (4.8-10.8)
[2023-02-06] MEDS: Gabapentin 400 MG CAPSULE 1200 MG PO ×3 (08:17→20:08)
[2023-02-06] MEDS: Acyclovir 200 MG CAPSULE 400 MG PO ×2 (08:17→20:09)
[2023-02-06] MEDS: Sennosides/Docusate Sodium TABLET 2 TAB PO (08:18)
[2023-02-06] MEDS: lisinopriL 2.5 MG TABLET PO (08:18)
[2023-02-06] MEDS: busPIRone HCl 5 MG TABLET PO ×2 (08:18→20:09)
[2023-02-06] MEDS: Finasteride 5 MG TABLET PO (08:18)
[2023-02-06] MEDS: PHENobarbitaL 30 MG TABLET PO (08:18)
[2023-02-06] MEDS: Lactulose 20 GM/30 ML SOLUTION 30 GM PO (08:20)
[2023-02-06] MEDS: polyethylene glycoL 3350 17 GM POWD.PACK PO ×2 (08:20→20:09)
[2023-02-06 10:40] LABS: Anion Gap 14 (12-20); Blood Urea Nitrogen 7 mg/dL (9-16); Calcium 9.4 mg/dL (8.4-10.2); Carbon Dioxide 24 mmol/L (22-29); Chloride 103 mmol/L (96-108); Creatinine Clr Calc Pharmacy 107.6; Estimated Glomerular Filt Rate > 60; Glucose Fasting 140 mg/dL (60-99); Magnesium 1.9 mg/dL (1.6-2.6); Potassium 3.9 mmol/L (3.3-5.1); Sodium 137 mmol/L (135-145)
[2023-02-06] MEDS: DULoxetine HCl 60 MG CAPSULE.DR PO (10:57)
[2023-02-06] MEDS: PHENobarbitaL sodium 130 MG/ML IM ONCE 292 MG IM (10:57)
[2023-02-06 11:02] LABS: Glucose, Whole Blood 143 mg/dL (60-115)
--- NOTE | 2023-02-06 11:16 | P.PNIM_ITS ---
Subjective Subjective Date of Service: 02/06/23 Interval History: still with pain, no appetite, agitation, diaphoresis Physical Exam 2 Vital Signs: Vital Signs: Last Vital Signs Temp 98.6 F 02/06/23 07:32 Pulse 87 02/06/23 07:32 Resp 18 02/06/23 07:32 BP 160/94 H 02/06/23 07:32 Pulse Ox 96 02/06/23 07:32 O2 Del Method Room Air 02/06/23 07:32 O2 Flow Rate 2 01/31/23 19:04 BMI result Body Mass Index 32.3 General: AO X 3, in pain, agitated, diaphoreitc Resp: CTA bilateral, no accessory muscles used CVS: S1,S2,RRR GI: soft, epigatric tender, non distended Neuro: motor grossly intact, alert, tremor Objective Data Active Medications Acetaminophen (Acetaminophen 325 Mg Tablet) 650 mg PO Q6H PRN PRN Reason: Pain, Mild (Pain Scale 1-3) Last Admin: 02/04/23 23:56 Dose: 650 mg Documented By: MARIA DOLORES Acyclovir (Acyclovir 200 Mg Capsule) 400 mg PO BID [facility] Last Admin: 02/06/23 08:17 Dose: 400 mg Documented By: AIRAM Atorvastatin Calcium (Atorvastatin Calcium 10 Mg Tablet) 10 mg PO BEDTIME [facility] Last Admin: 02/05/23 20:12 Dose: 10 mg Documented By: DYAN Benzonatate (Benzonatate 100 Mg Capsule) 100 mg PO TID PRN PRN Reason: Cough Buspirone HCl (Buspirone Hcl 5 Mg Tablet) 5 mg PO BID [facility] Last Admin: 02/06/23 08:18 Dose: 5 mg Documented By: AIRAM Cyclobenzaprine HCl (Cyclobenzaprine Hcl 10 Mg Tablet) 10 mg PO TID PRN PRN Reason: Muscle Spasm Dextrose (Dextrose 50 % 25 Gm/50 Ml Syringe) 25 gm IVPUSH Q15M PRN; Protocol PRN Reason: per Hypoglycemia Standing Ord. Docusate Sodium (Docusate Sodium 100 Mg Capsule) 100 mg PO DAILY PRN PRN Reason: Constipation Last Admin: 02/02/23 15:06 Dose: 100 mg Documented By: SHARTIA Duloxetine HCl (Duloxetine Hcl 60 Mg Capsule.) 60 mg PO DAILY [facility] Last Admin: 02/06/23 10:57 Dose: 60 mg Documented By: AIRAM Enoxaparin Sodium (Enoxaparin Sodium 40 Mg/0.4 Ml Syringe) 40 mg SUBCUT Q24H [facility] Last Admin: 02/05/23 15:17 Dose: 40 mg Documented By: TONIE Finasteride (Finasteride 5 Mg Tablet) 5 mg PO DAILY [facility] Last Admin: 02/06/23 08:18 Dose: 5 mg Documented By: AIRAM Gabapentin (Gabapentin 400 Mg Capsule) 1,200 mg PO TID [facility] Last Admin: 02/06/23 08:17 Dose: 1,200 mg Documented By: AIRAM Glucose (Glucose Gel 15 Gm Gel..Gram.) 15 gm PO Q15M PRN; Protocol PRN Reason: per Hypoglycemia Standing Ord. Hydroxyzine HCl (Hydroxyzine Hcl 25 Mg Tablet) 25 mg PO BEDTIME [facility] Last Admin: 02/05/23 20:11 Dose: 25 mg Documented By: DYAN Insulin Human Lispro (Insulin Lispro 100 Unit/Ml 3 Ml Vial) 0 unit SUBCUT QIDACHS [facility]; Protocol Last Admin: 02/06/23 08:21 Dose: Not Given Documented By: AIRAM Non-Admin Reason: No Insulin Coverage Lactulose (Lactulose 20 Gm/30 Ml Solution) 30 gm PO BID [facility] Last Admin: 02/06/23 08:20 Dose: 30 gm Documented By: AIRAM Lisinopril (Lisinopril 2.5 Mg Tablet) 2.5 mg PO DAILY [facility]; Protocol Last Admin: 02/06/23 08:18 Dose: 2.5 mg Documented By: AIRAM Metoprolol Succinate (Metoprolol Succinate Er 25 Mg Tab.Er.24h) 25 mg PO BEDTIME [facility]; Protocol Last Admin: 02/05/23 20:11 Dose: 25 mg Documented By: DYAN Morphine Sulfate (Morphine Sulfate 4 Mg/Ml Cartridge) 4 mg IVPUSH Q3H PRN; Protocol PRN Reason: Mod pain Last Admin: 02/06/23 10:17 Dose: 4 mg Documented By: ZACH Nicotine (Nicotine 21 Mg Patch.Td24) 21 mg TRANSDERMA DAILY [facility] Last Admin: 02/06/23 09:32 Dose: Not Given Documented By: HO.RUANES Non-Admin Reason: Patient Refused Nicotine Polacrilex (Nicotine Polacrilex 2 Mg Gum) 2 mg BUCCAL Q1H PRN PRN Reason: nicotine crave Last Admin: 02/06/23 10:17 Dose: 2 mg Documented By: ZACH Omeprazole (Omeprazole 20 Mg Capsule.Dr) 20 mg PO BID@0630,1630 [facility] Last Admin: 02/06/23 06:14 Dose: 20 mg Documented By: SIXTO Ondansetron HCl (Ondansetron Hcl 4 Mg/2 Ml Vial) 4 mg IVPUSH Q8H PRN PRN Reason: Nausea and Vomiting Pharmacy Consult (Consult Rx Etoh Phenob Im/Po) 1 each MISCELLANE ONCE PRN; Protocol PRN Reason: Consult order Pharmacy Consult (Consult Rx Etoh Phenob Im/Po) 1 each MISCELLANE ONCE PRN; Protocol PRN Reason: Consult order Phenobarbital (Phenobarbital 15 Mg Tablet) 45 mg PO BID [facility]; Protocol Stop: 02/08/23 21:01 Phenobarbital (Phenobarbital 30 Mg Tablet) 30 mg PO BID [facility]; Protocol Stop: 02/10/23 21:01 Phenobarbital (Phenobarbital 30 Mg Tablet) 30 mg PO DAILY [facility]; Protocol Stop: 02/12/23 09:01 Phenobarbital Sodium (Phenobarbital Sodium 130 Mg/Ml Vial Im Q3hx2) 220 mg IM Q3H [facility]; Protocol Stop: 02/06/23 16:16 Polyethylene Glycol (Polyethylene Glycol 3350 17 Gm Powd.Pack) 17 gm PO BID [facility] Last Admin: 02/06/23 08:20 Dose: 17 gm Documented By: AIRAM Senna/Docusate Sodium (Sennosides/Docusate Sodium Tablet) 2 tab PO BID [facility] Last Admin: 02/06/23 08:18 Dose: 2 tab Documented By: AIRAM Simethicone (Simethicone 80 Mg Tab.Chew) 80 mg PO QIDWMHS PRN PRN Reason: Heartburn Last Admin: 02/06/23 06:38 Dose: 80 mg Documented By: SIXTO Sodium Chloride (0.9 % Sodium Chloride Flush 3 Ml Syringe) 3 ml IVFLUSH QSHIFT [facility] Last Admin: 02/06/23 09:32 Dose: Not Given Documented By: HO.RUANES Non-Admin Reason: IV Running Tamsulosin HCl (Tamsulosin Hcl 0.4 Mg Capsule) 0.8 mg PO BEDTIME [facility] Last Admin: 02/05/23 20:12 Dose: 0.8 mg Documented By: DYAN Trazodone HCl (Trazodone Hcl 100 Mg Tablet) 300 mg PO BEDTIME [facility] Last Admin: 02/05/23 20:12 Dose: 300 mg Documented By: DYAN Labs 02/06/23 07:10 02/06/23 10:12 Labs: Laboratory Results - last 24 hr 02/05/23 02/05/23 02/06/23 16:04 19:39 07:10 MCV 93.3 MCH 31.7 MCHC 34.0 RDW 13.6 Plt Count 210 MPV 11.0 Absolute Nucleated RBC 0.000 Nucleated RBC % (auto) 0.0 Anion Gap Estim Creat Clear Calc Estimated GFR POC Glucose 107 128 H 125 H Fasting Glucose Calcium Magnesium 02/06/23 02/06/23 10:12 10:51 MCV MCH MCHC RDW Plt Count MPV Absolute Nucleated RBC Nucleated RBC % (auto) Anion Gap 14 Estim Creat Clear Calc 107.6 Estimated GFR > 60 POC Glucose 143 H Fasting Glucose 140 H Calcium 9.4 Magnesium 1.9 Assessment and Plan (1) Alcohol withdrawal syndrome: Status: Acute Plan d6 62yo M with AUD presented with acute withdrawal, also found to have acute pancreatitis acute pancreatitis likely EtOH ivf, morphine iv, advance diet as tolerated EtOH dependence with withdrawal, hx of withdrawal seizures still with withdrawal, restart phenobarb HTN metoprolol, lisinopril DM2 steve-dose lispro HLD statin BPH finasteride, tamuslosin OUD Suboxone on hold constipation bowel regimen tobacco abuse NRT mood disorder buspirone, hydroxzine, tamsulosin chronic pain gabapentin, cyclobenzaprine VTE ppx LMWH dispo eventual home reason for continued hospitalization:not tolerating po Total time managing care of this patient today: 35 minutes. Quality Stroke Does the patient have a stroke diagnosis?: No VTE Prior VTE?: No VTE Risk Level:: Medical - moderate - high VTE Device Contraindication: Treatment Not Indicated VTE Drug Contraindication: N/A - Med Ordered
[2023-02-06] MEDS: PHENobarbitaL sodium 130 MG/ML VIAL IM Q3Hx2 220 MG IM ×2 (14:10→17:17)
--- NOTE | 2023-02-06 14:20 | MHC.CM.PN ---
EMR reviewed and per MD rounds, pt is not medically cleared for D/C due to continued management of ETOH withdrawal and awaiting PO tolerance. CM will continue to follow.
[2023-02-06 16:10] LABS: Glucose, Whole Blood 111 mg/dL (60-115)
[2023-02-06] MEDS: Enoxaparin Sodium 40 MG/0.4 ML SYRINGE SUBCUT (17:17)
[2023-02-06 19:44] LABS: Glucose, Whole Blood 129 mg/dL (60-115)
[2023-02-06] MEDS: traZODone HCL 100 MG TABLET 300 MG PO (20:08)
[2023-02-06] MEDS: Atorvastatin Calcium 10 MG TABLET PO (20:09)
[2023-02-06] MEDS: Acetaminophen 325 MG TABLET 650 MG PO (20:09)
[2023-02-06] MEDS: hydrOXYzine HCL 25 MG TABLET PO (20:09)
[2023-02-06] MEDS: Metoprolol Succinate ER 25 MG TAB.ER.24H PO (20:09)
[2023-02-06] MEDS: Tamsulosin HCL 0.4 MG CAPSULE 0.8 MG PO (20:09)
[2023-02-06] MEDS: 0.9 % Sodium Chloride Flush 3 ML SYRINGE IVFLUSH (23:16)
[2023-02-07] MEDS: Nicotine Polacrilex 2 MG GUM BUCCAL ×9 (01:28→21:29)
[2023-02-07 03:17] VITALS: BP 148/84; PULSE 93; RESP 16; TEMP 36.7; O2SAT 93
[2023-02-07] MEDS: hydrOXYzine HCL 25 MG TABLET PO ×2 (03:24→20:17)
[2023-02-07] MEDS: Morphine Sulfate 4 MG/ML CARTRIDGE IVPUSH ×6 (03:24→20:17)
[2023-02-07] MEDS: Lactated Ringers 1,000 ML 125 ML IVCONT ×2 (03:25→12:01)
[2023-02-07] MEDS: Omeprazole 20 MG CAPSULE.DR PO ×2 (06:27→16:32)
[2023-02-07 07:20] VITALS: BP 146/87; PULSE 81; RESP 18; TEMP 36.7; O2SAT 93
[2023-02-07 07:37] LABS: Glucose, Whole Blood 132 mg/dL (60-115)
[2023-02-07] MEDS: PHENobarbitaL 15 MG TABLET 45 MG PO ×2 (08:39→20:18)
[2023-02-07] MEDS: Finasteride 5 MG TABLET PO (08:39)
[2023-02-07] MEDS: DULoxetine HCl 60 MG CAPSULE.DR PO (08:39)
[2023-02-07] MEDS: Acyclovir 200 MG CAPSULE 400 MG PO ×2 (08:39→20:16)
[2023-02-07] MEDS: Gabapentin 400 MG CAPSULE 1200 MG PO ×3 (08:39→20:15)
[2023-02-07] MEDS: lisinopriL 2.5 MG TABLET PO (08:39)
[2023-02-07] MEDS: busPIRone HCl 5 MG TABLET PO ×2 (08:39→20:17)
--- NOTE | 2023-02-07 09:26 | HO.PM.IMPN ---
Subjective Subjective Date of Service: 02/07/23 Interval History: ready for clears, withdrawal improving, still jitery Physical Exam Vital Signs: Vital Signs: Last Vital Signs Temp 98.0 F 02/07/23 07:20 Pulse 81 02/07/23 07:20 Resp 18 02/07/23 07:20 BP 146/87 H 02/07/23 07:20 Pulse Ox 93 02/07/23 07:20 O2 Del Method Room Air 02/07/23 07:20 O2 Flow Rate 2 01/31/23 19:04 BMI result Body Mass Index 32.3 General: AO X 3, less distress Resp: CTA bilateral, no accessory muscles used CVS: S1,S2,RRR GI: soft, epigatric less tender, non distended Neuro: motor grossly intact, alert, mild tremor Objective Data Active Medications Acetaminophen (Acetaminophen 325 Mg Tablet) 650 mg PO Q6H PRN PRN Reason: Pain, Mild (Pain Scale 1-3) Last Admin: 02/06/23 20:09 Dose: 650 mg Documented By: MARIA DOLORES Acyclovir (Acyclovir 200 Mg Capsule) 400 mg PO BID [facility] Last Admin: 02/07/23 08:39 Dose: 400 mg Documented By: AIRAM Atorvastatin Calcium (Atorvastatin Calcium 10 Mg Tablet) 10 mg PO BEDTIME [facility] Last Admin: 02/06/23 20:09 Dose: 10 mg Documented By: MARIA DOLORES Benzonatate (Benzonatate 100 Mg Capsule) 100 mg PO TID PRN PRN Reason: Cough Buspirone HCl (Buspirone Hcl 5 Mg Tablet) 5 mg PO BID [facility] Last Admin: 02/07/23 08:39 Dose: 5 mg Documented By: AIRAM Cyclobenzaprine HCl (Cyclobenzaprine Hcl 10 Mg Tablet) 10 mg PO TID PRN PRN Reason: Muscle Spasm Dextrose (Dextrose 50 % 25 Gm/50 Ml Syringe) 25 gm IVPUSH Q15M PRN; Protocol PRN Reason: per Hypoglycemia Standing Ord. Docusate Sodium (Docusate Sodium 100 Mg Capsule) 100 mg PO DAILY PRN PRN Reason: Constipation Last Admin: 02/02/23 15:06 Dose: 100 mg Documented By: SHARITA Duloxetine HCl (Duloxetine Hcl 60 Mg Capsule.) 60 mg PO DAILY [facility] Last Admin: 02/07/23 08:39 Dose: 60 mg Documented By: AIRAM Enoxaparin Sodium (Enoxaparin Sodium 40 Mg/0.4 Ml Syringe) 40 mg SUBCUT Q24H [facility] Last Admin: 02/06/23 17:17 Dose: 40 mg Documented By: AIRAM Finasteride (Finasteride 5 Mg Tablet) 5 mg PO DAILY [facility] Last Admin: 02/07/23 08:39 Dose: 5 mg Documented By: AIRAM Gabapentin (Gabapentin 400 Mg Capsule) 1,200 mg PO TID [facility] Last Admin: 02/07/23 08:39 Dose: 1,200 mg Documented By: AIRAM Glucose (Glucose Gel 15 Gm Gel..Gram.) 15 gm PO Q15M PRN; Protocol PRN Reason: per Hypoglycemia Standing Ord. Hydroxyzine HCl (Hydroxyzine Hcl 25 Mg Tablet) 25 mg PO BEDTIME [facility] Last Admin: 02/06/23 20:09 Dose: 25 mg Documented By: MARIA DOLORES Lactated Ringer's (Lr) 1,000 mls @ 125 mls/hr IVCONT .Q8H [facility] Last Admin: 02/07/23 03:25 Dose: 125 mls/hr Documented By: MARIA DOLORES Insulin Human Lispro (Insulin Lispro 100 Unit/Ml 3 Ml Vial) 0 unit SUBCUT QIDACHS [facility]; Protocol Last Admin: 02/07/23 07:07 Dose: Not Given Documented By: AIRAM Non-Admin Reason: No Insulin Coverage Lactulose (Lactulose 20 Gm/30 Ml Solution) 30 gm PO BID [facility] Last Admin: 02/07/23 08:46 Dose: Not Given Documented By: AIRAM Non-Admin Reason: Patient Refused Lisinopril (Lisinopril 2.5 Mg Tablet) 2.5 mg PO DAILY [facility]; Protocol Last Admin: 02/07/23 08:39 Dose: 2.5 mg Documented By: AIRAM Metoprolol Succinate (Metoprolol Succinate Er 25 Mg Tab.Er.24h) 25 mg PO BEDTIME [facility]; Protocol Last Admin: 02/06/23 20:09 Dose: 25 mg Documented By: MARIA DOLORES Morphine Sulfate (Morphine Sulfate 4 Mg/Ml Cartridge) 4 mg IVPUSH Q3H PRN; Protocol PRN Reason: Mod pain Last Admin: 02/07/23 06:27 Dose: 4 mg Documented By: MARIA DOLORES Nicotine (Nicotine 21 Mg Patch.Td24) 21 mg TRANSDERMA DAILY [facility] Last Admin: 02/07/23 08:46 Dose: Not Given Documented By: AIRAM Non-Admin Reason: Patient Refused Nicotine Polacrilex (Nicotine Polacrilex 2 Mg Gum) 2 mg BUCCAL Q1H PRN PRN Reason: nicotine crave Last Admin: 02/07/23 08:44 Dose: 2 mg Documented By: AIRAM Omeprazole (Omeprazole 20 Mg Capsule.Dr) 20 mg PO BID@0630,1630 [facility] Last Admin: 02/07/23 06:27 Dose: 20 mg Documented By: MARIA DOLORES Ondansetron HCl (Ondansetron Hcl 4 Mg/2 Ml Vial) 4 mg IVPUSH Q8H PRN PRN Reason: Nausea and Vomiting Pharmacy Consult (Consult Rx Etoh Phenob Im/Po) 1 each MISCELLANE ONCE PRN; Protocol PRN Reason: Consult order Pharmacy Consult (Consult Rx Etoh Phenob Im/Po) 1 each MISCELLANE ONCE PRN; Protocol PRN Reason: Consult order Phenobarbital (Phenobarbital 15 Mg Tablet) 45 mg PO BID [facility]; Protocol Stop: 02/08/23 21:01 Last Admin: 02/07/23 08:39 Dose: 45 mg Documented By: AIRAM Phenobarbital (Phenobarbital 30 Mg Tablet) 30 mg PO BID [facility]; Protocol Stop: 02/10/23 21:01 Phenobarbital (Phenobarbital 30 Mg Tablet) 30 mg PO DAILY [facility]; Protocol Stop: 02/12/23 09:01 Polyethylene Glycol (Polyethylene Glycol 3350 17 Gm Powd.Pack) 17 gm PO BID [facility] Last Admin: 02/07/23 08:46 Dose: Not Given Documented By: AIRAM Non-Admin Reason: Patient Refused Senna/Docusate Sodium (Sennosides/Docusate Sodium Tablet) 2 tab PO BID [facility] Last Admin: 02/07/23 08:46 Dose: Not Given Documented By: AIRAM Non-Admin Reason: Patient Refused Simethicone (Simethicone 80 Mg Tab.Chew) 80 mg PO QIDWMHS PRN PRN Reason: Heartburn Last Admin: 02/06/23 06:38 Dose: 80 mg Documented By: SIXTO Sodium Chloride (0.9 % Sodium Chloride Flush 3 Ml Syringe) 3 ml IVFLUSH QSHIFT [facility] Last Admin: 02/07/23 08:41 Dose: Not Given Documented By: AIRAM Non-Admin Reason: IV Running Tamsulosin HCl (Tamsulosin Hcl 0.4 Mg Capsule) 0.8 mg PO BEDTIME [facility] Last Admin: 02/06/23 20:09 Dose: 0.8 mg Documented By: MARIA DOLORES Trazodone HCl (Trazodone Hcl 100 Mg Tablet) 300 mg PO BEDTIME [facility] Last Admin: 02/06/23 20:08 Dose: 300 mg Documented By: MARIA DOLORES Labs 02/06/23 07:10 02/06/23 10:12 Labs: Laboratory Results - last 24 hr 02/06/23 02/06/23 02/06/23 10:12 10:51 16:07 Anion Gap 14 Estim Creat Clear Calc 107.6 Estimated GFR > 60 POC Glucose 143 H 111 Fasting Glucose 140 H Calcium 9.4 Magnesium 1.9 02/06/23 02/07/23 19:40 07:21 Anion Gap Estim Creat Clear Calc Estimated GFR POC Glucose 129 H 132 H Fasting Glucose Calcium Magnesium Assessment and Plan (1) Alcohol withdrawal syndrome: Status: Acute Plan d6 62yo M with AUD presented with acute withdrawal, also found to have acute pancreatitis acute pancreatitis likely EtOH ivf, morphine iv, advanced to clears today EtOH dependence with withdrawal, hx of withdrawal seizures still with withdrawal, restarted phenobarb HTN metoprolol, lisinopril DM2 steve-dose lispro HLD statin BPH finasteride, tamuslosin OUD Suboxone on hold constipation bowel regimen tobacco abuse NRT mood disorder buspirone, hydroxzine, tamsulosin chronic pain gabapentin, cyclobenzaprine VTE ppx LMWH dispo eventual home reason for continued hospitalization:not tolerating po, withdrawal Total time managing care of this patient today: 35 minutes. Quality Stroke Does the patient have a stroke diagnosis?: No VTE Prior VTE?: No VTE Risk Level:: Medical - moderate - high VTE Device Contraindication: Treatment Not Indicated VTE Drug Contraindication: N/A - Med Ordered
[2023-02-07 11:20] VITALS: BP 125/82; PULSE 80; RESP 18; TEMP 36.4; O2SAT 94
[2023-02-07 11:38] LABS: Glucose, Whole Blood 107 mg/dL (60-115)
[2023-02-07] MEDS: ondansetron HCL 4 MG/2 ML VIAL IVPUSH (12:02)
[2023-02-07 16:00] VITALS: BP 160/100; PULSE 80; RESP 20; TEMP 36.1; O2SAT 96
[2023-02-07 16:34] LABS: Glucose, Whole Blood 113 mg/dL (60-115)
[2023-02-07] MEDS: Enoxaparin Sodium 40 MG/0.4 ML SYRINGE SUBCUT (16:34)
[2023-02-07] MEDS: 0.9 % Sodium Chloride Flush 3 ML SYRINGE IVFLUSH ×2 (16:35→20:18)
[2023-02-07 19:24] VITALS: BP 152/96; PULSE 80; RESP 16; TEMP 36.4; O2SAT 95
[2023-02-07] MEDS: Acetaminophen 325 MG TABLET 650 MG PO (20:15)
[2023-02-07] MEDS: Tamsulosin HCL 0.4 MG CAPSULE 0.8 MG PO (20:16)
[2023-02-07] MEDS: traZODone HCL 100 MG TABLET 300 MG PO (20:17)
[2023-02-07] MEDS: Metoprolol Succinate ER 25 MG TAB.ER.24H PO (20:17)
[2023-02-07] MEDS: Atorvastatin Calcium 10 MG TABLET PO (20:17)
[2023-02-07] MEDS: Simethicone 80 MG TAB.CHEW PO (20:31)
[2023-02-07 21:05] LABS: Glucose, Whole Blood 142 mg/dL (60-115)
--- NOTE | 2023-02-07 22:19 | PC.RT ---
Pt refused to wear CPAP for NOC support x3 nights.
[2023-02-08] VITALS (7 sets, daily range): BP systolic 135–164; BP diastolic 65–94; PULSE 67–94; RESP 18–20; TEMP 36.1–37.4; O2SAT 94–96
[2023-02-08] MEDS: Morphine Sulfate 4 MG/ML CARTRIDGE IVPUSH ×7 (00:13→22:48)
[2023-02-08] MEDS: Nicotine Polacrilex 2 MG GUM BUCCAL ×8 (00:13→21:22)
[2023-02-08] MEDS: Omeprazole 20 MG CAPSULE.DR PO ×2 (06:11→16:25)
[2023-02-08] MEDS: Acetaminophen 325 MG TABLET 650 MG PO ×2 (06:12→21:23)
[2023-02-08] MEDS: Simethicone 80 MG TAB.CHEW PO ×2 (06:12→17:34)
[2023-02-08 08:16] LABS: Glucose, Whole Blood 126 mg/dL (60-115)
[2023-02-08] MEDS: Sennosides/Docusate Sodium TABLET 2 TAB PO (09:01)
[2023-02-08] MEDS: 0.9 % Sodium Chloride Flush 3 ML SYRINGE IVFLUSH ×3 (09:01→19:47)
[2023-02-08] MEDS: Gabapentin 400 MG CAPSULE 1200 MG PO ×3 (09:01→21:00)
[2023-02-08] MEDS: PHENobarbitaL 15 MG TABLET 45 MG PO ×2 (09:01→20:59)
[2023-02-08] MEDS: Acyclovir 200 MG CAPSULE 400 MG PO ×2 (09:01→20:59)
[2023-02-08] MEDS: Finasteride 5 MG TABLET PO (09:01)
[2023-02-08] MEDS: busPIRone HCl 5 MG TABLET PO ×2 (09:02→20:59)
[2023-02-08] MEDS: DULoxetine HCl 60 MG CAPSULE.DR PO (09:02)
[2023-02-08] MEDS: lisinopriL 2.5 MG TABLET PO (09:02)
--- NOTE | 2023-02-08 09:11 | P.PNIM_ITS ---
Subjective Subjective Date of Service: 02/08/23 Interval History: improving, still with pain Physical Exam 2 Vital Signs: Vital Signs: Last Vital Signs Temp 97.9 F 02/08/23 07:19 Pulse 94 02/08/23 07:19 Resp 18 02/08/23 07:19 BP 151/94 H 02/08/23 07:19 Pulse Ox 94 02/08/23 07:19 O2 Del Method Room Air 02/08/23 07:19 O2 Flow Rate 2 01/31/23 19:04 BMI result Body Mass Index 32.3 General: AO X 3, less distress Resp: CTA bilateral, no accessory muscles used CVS: S1,S2,RRR GI: soft, epigatric less tender, non distended Neuro: motor grossly intact, alert, mild tremor Objective Data Active Medications Acetaminophen (Acetaminophen 325 Mg Tablet) 650 mg PO Q6H PRN PRN Reason: Pain, Mild (Pain Scale 1-3) Last Admin: 02/08/23 06:12 Dose: 650 mg Documented By: GABI Acyclovir (Acyclovir 200 Mg Capsule) 400 mg PO BID [facility] Last Admin: 02/08/23 09:01 Dose: 400 mg Documented By: ZACH Atorvastatin Calcium (Atorvastatin Calcium 10 Mg Tablet) 10 mg PO BEDTIME [facility] Last Admin: 02/07/23 20:17 Dose: 10 mg Documented By: GABI Benzonatate (Benzonatate 100 Mg Capsule) 100 mg PO TID PRN PRN Reason: Cough Buspirone HCl (Buspirone Hcl 5 Mg Tablet) 5 mg PO BID [facility] Last Admin: 02/08/23 09:02 Dose: 5 mg Documented By: ZACH Cyclobenzaprine HCl (Cyclobenzaprine Hcl 10 Mg Tablet) 10 mg PO TID PRN PRN Reason: Muscle Spasm Dextrose (Dextrose 50 % 25 Gm/50 Ml Syringe) 25 gm IVPUSH Q15M PRN; Protocol PRN Reason: per Hypoglycemia Standing Ord. Docusate Sodium (Docusate Sodium 100 Mg Capsule) 100 mg PO DAILY PRN PRN Reason: Constipation Last Admin: 02/02/23 15:06 Dose: 100 mg Documented By: SHARITA Duloxetine HCl (Duloxetine Hcl 60 Mg Capsule.) 60 mg PO DAILY [facility] Last Admin: 02/08/23 09:02 Dose: 60 mg Documented By: ZACH Enoxaparin Sodium (Enoxaparin Sodium 40 Mg/0.4 Ml Syringe) 40 mg SUBCUT Q24H [facility] Last Admin: 02/07/23 16:34 Dose: 40 mg Documented By: AIRAM Finasteride (Finasteride 5 Mg Tablet) 5 mg PO DAILY [facility] Last Admin: 02/08/23 09:01 Dose: 5 mg Documented By: ZACH Gabapentin (Gabapentin 400 Mg Capsule) 1,200 mg PO TID [facility] Last Admin: 02/08/23 09:01 Dose: 1,200 mg Documented By: ZACH Glucose (Glucose Gel 15 Gm Gel..Gram.) 15 gm PO Q15M PRN; Protocol PRN Reason: per Hypoglycemia Standing Ord. Hydroxyzine HCl (Hydroxyzine Hcl 25 Mg Tablet) 25 mg PO BEDTIME [facility] Last Admin: 02/07/23 20:17 Dose: 25 mg Documented By: GABI Insulin Human Lispro (Insulin Lispro 100 Unit/Ml 3 Ml Vial) 0 unit SUBCUT QIDACHS [facility]; Protocol Last Admin: 02/08/23 08:54 Dose: Not Given Documented By: ZACH Non-Admin Reason: No Insulin Coverage Lactulose (Lactulose 20 Gm/30 Ml Solution) 30 gm PO BID [facility] Last Admin: 02/08/23 09:02 Dose: Not Given Documented By: ZACH Non-Admin Reason: Patient Refused Lisinopril (Lisinopril 2.5 Mg Tablet) 2.5 mg PO DAILY [facility]; Protocol Last Admin: 02/08/23 09:02 Dose: 2.5 mg Documented By: ZACH Metoprolol Succinate (Metoprolol Succinate Er 25 Mg Tab.Er.24h) 25 mg PO BEDTIME [facility]; Protocol Last Admin: 02/07/23 20:17 Dose: 25 mg Documented By: GABI Morphine Sulfate (Morphine Sulfate 4 Mg/Ml Cartridge) 4 mg IVPUSH Q3H PRN; Protocol PRN Reason: Mod pain Last Admin: 02/08/23 09:00 Dose: 4 mg Documented By: ZACH Nicotine (Nicotine 21 Mg Patch.Td24) 21 mg TRANSDERMA DAILY [facility] Last Admin: 02/08/23 09:02 Dose: Not Given Documented By: ZACH Non-Admin Reason: Patient Refused Nicotine Polacrilex (Nicotine Polacrilex 2 Mg Gum) 2 mg BUCCAL Q1H PRN PRN Reason: nicotine crave Last Admin: 02/08/23 09:02 Dose: 2 mg Documented By: ZACH Omeprazole (Omeprazole 20 Mg Capsule.) 20 mg PO BID@0630,1630 [facility] Last Admin: 02/08/23 06:11 Dose: 20 mg Documented By: GABI Ondansetron HCl (Ondansetron Hcl 4 Mg/2 Ml Vial) 4 mg IVPUSH Q8H PRN PRN Reason: Nausea and Vomiting Last Admin: 02/07/23 12:02 Dose: 4 mg Documented By: AIRAM Pharmacy Consult (Consult Rx Etoh Phenob Im/Po) 1 each MISCELLANE ONCE PRN; Protocol PRN Reason: Consult order Pharmacy Consult (Consult Rx Etoh Phenob Im/Po) 1 each MISCELLANE ONCE PRN; Protocol PRN Reason: Consult order Phenobarbital (Phenobarbital 15 Mg Tablet) 45 mg PO BID [facility]; Protocol Stop: 02/08/23 21:01 Last Admin: 02/08/23 09:01 Dose: 45 mg Documented By: ZACH Phenobarbital (Phenobarbital 30 Mg Tablet) 30 mg PO BID [facility]; Protocol Stop: 02/10/23 21:01 Phenobarbital (Phenobarbital 30 Mg Tablet) 30 mg PO DAILY [facility]; Protocol Stop: 02/12/23 09:01 Polyethylene Glycol (Polyethylene Glycol 3350 17 Gm Powd.Pack) 17 gm PO BID [facility] Last Admin: 02/08/23 09:02 Dose: Not Given Documented By: ZACH Non-Admin Reason: Patient Refused Senna/Docusate Sodium (Sennosides/Docusate Sodium Tablet) 2 tab PO BID [facility] Last Admin: 02/08/23 09:01 Dose: 2 tab Documented By: ZACH Simethicone (Simethicone 80 Mg Tab.Chew) 80 mg PO QIDWMHS PRN PRN Reason: Heartburn Last Admin: 02/08/23 06:12 Dose: 80 mg Documented By: GABI Sodium Chloride (0.9 % Sodium Chloride Flush 3 Ml Syringe) 3 ml IVFLUSH QSHIFT [facility] Last Admin: 02/08/23 09:01 Dose: 3 ml Documented By: ZACH Tamsulosin HCl (Tamsulosin Hcl 0.4 Mg Capsule) 0.8 mg PO BEDTIME [facility] Last Admin: 02/07/23 20:16 Dose: 0.8 mg Documented By: GABI Trazodone HCl (Trazodone Hcl 100 Mg Tablet) 300 mg PO BEDTIME [facility] Last Admin: 02/07/23 20:17 Dose: 300 mg Documented By: GABI Labs 02/06/23 07:10 02/06/23 10:12 Labs: Laboratory Results - last 24 hr 02/07/23 02/07/23 02/07/23 11: 16:13 20:47 POC Glucose 107 113 142 H 02/08/23 08:02 POC Glucose 126 H Assessment and Plan (1) Alcohol withdrawal syndrome: Status: Acute Plan d6 62yo M with AUD presented with acute withdrawal, also found to have acute pancreatitis acute pancreatitis likely EtOH ivf, morphine iv, advanced to solids EtOH dependence with withdrawal, hx of withdrawal seizures still with withdrawal, restarted phenobarb HTN metoprolol, lisinopril DM2 steve-dose lispro HLD statin BPH finasteride, tamuslosin OUD Suboxone on hold constipation bowel regimen tobacco abuse NRT mood disorder buspirone, hydroxzine, tamsulosin chronic pain gabapentin, cyclobenzaprine VTE ppx LMWH dispo eventual home reason for continued hospitalization:ongiong withdrawal Total time managing care of this patient today: 35 minutes. Quality Stroke Does the patient have a stroke diagnosis?: No VTE Prior VTE?: No VTE Risk Level:: Medical - moderate - high VTE Device Contraindication: Treatment Not Indicated VTE Drug Contraindication: N/A - Med Ordered
[2023-02-08 11:53] LABS: Glucose, Whole Blood 99 mg/dL (60-115)
--- NOTE | 2023-02-08 11:58 | MHC.CM.PN ---
EMR reviewed and per MD rounds, pt is not medically cleared for D/C due to ongoing ETOH withdrawal. CM will continue to follow.
[2023-02-08] MEDS: Enoxaparin Sodium 40 MG/0.4 ML SYRINGE SUBCUT (16:25)
[2023-02-08 16:44] LABS: Glucose, Whole Blood 209 mg/dL (60-115)
[2023-02-08] MEDS: Insulin Lispro 100 UNIT/ML 3 ML VIAL SUBCUT (17:00)
[2023-02-08] MEDS: Cyclobenzaprine HCl 10 MG TABLET PO (19:46)
[2023-02-08 20:39] LABS: Glucose, Whole Blood 103 mg/dL (60-115)
[2023-02-08] MEDS: Atorvastatin Calcium 10 MG TABLET PO (20:59)
[2023-02-08] MEDS: polyethylene glycoL 3350 17 GM POWD.PACK PO (20:59)
[2023-02-08] MEDS: hydrOXYzine HCL 25 MG TABLET PO (20:59)
[2023-02-08] MEDS: Metoprolol Succinate ER 25 MG TAB.ER.24H PO (21:00)
[2023-02-08] MEDS: Benzonatate 100 MG CAPSULE PO (21:00)
[2023-02-08] MEDS: Tamsulosin HCL 0.4 MG CAPSULE 0.8 MG PO (21:22)
[2023-02-08] MEDS: traZODone HCL 100 MG TABLET 300 MG PO (21:23)
[2023-02-09 03:31] VITALS: BP 137/80; PULSE 66; RESP 18; TEMP 36.9; O2SAT 96
[2023-02-09] MEDS: Morphine Sulfate 4 MG/ML CARTRIDGE IVPUSH ×3 (05:13→12:09)
[2023-02-09] MEDS: Omeprazole 20 MG CAPSULE.DR PO (05:13)
[2023-02-09] MEDS: Nicotine Polacrilex 2 MG GUM BUCCAL ×3 (05:30→11:17)
[2023-02-09 05:52] LABS: Hematocrit 38.9 % (42.0-52.0); Mean Corpuscular HGB Conc 33.4 g/dl (31.0-36.0); Mean Corpuscular Volume 92.8 fL (80.0-98.0); Mean Platelet Volume 9.9 fL (9.4-12.4); Platelet Count 368 X10*3/uL (160-400); Red Blood Count 4.19 X10*6/uL (4.60-5.80); Red Cell Distribution Width 13.3 % (11.0-16.0); White Blood Count 7.8 X10*3/uL (4.8-10.8)
[2023-02-09 06:06] LABS: Alanine Aminotransferase 28 U/L (0-40); Albumin Level 3.7 g/dL (3.5-5.0); Alkaline Phosphatase 71 U/L (39-117); Anion Gap 13 (12-20); Aspartate Amino Transferase 26 U/L (5-37); Bilirubin Direct < 0.2 mg/dL (0.0-0.5); Bilirubin Total 0.2 mg/dL (0.0-1.0); Blood Urea Nitrogen 11 mg/dL (9-16); Calcium 9.4 mg/dL (8.4-10.2); Carbon Dioxide 27 mmol/L (22-29); Chloride 107 mmol/L (96-108); Creatinine Clr Calc Pharmacy 103.8; Estimated Glomerular Filt Rate > 60; Glucose Fasting 104 mg/dL (60-99); Magnesium 2.4 mg/dL (1.6-2.6); Potassium 4.7 mmol/L (3.3-5.1); Sodium 142 mmol/L (135-145); Total Protein 7.2 g/dL (6.5-8.0)
[2023-02-09] MEDS: Simethicone 80 MG TAB.CHEW PO (06:07)
[2023-02-09 07:09] VITALS: BP 140/82; PULSE 74; RESP 20; TEMP 36.6; O2SAT 97
[2023-02-09 07:45] LABS: Glucose, Whole Blood 130 mg/dL (60-115)
[2023-02-09] MEDS: Finasteride 5 MG TABLET PO (08:49)
[2023-02-09] MEDS: 0.9 % Sodium Chloride Flush 3 ML SYRINGE IVFLUSH (08:49)
[2023-02-09] MEDS: PHENobarbitaL 30 MG TABLET PO (08:51)
[2023-02-09] MEDS: lisinopriL 2.5 MG TABLET PO (08:51)
[2023-02-09] MEDS: Acyclovir 200 MG CAPSULE 400 MG PO (08:51)
[2023-02-09] MEDS: DULoxetine HCl 60 MG CAPSULE.DR PO (08:51)
[2023-02-09] MEDS: Gabapentin 400 MG CAPSULE 1200 MG PO (08:52)
[2023-02-09] MEDS: Sennosides/Docusate Sodium TABLET 2 TAB PO (08:52)
[2023-02-09] MEDS: busPIRone HCl 5 MG TABLET PO (08:52)
--- NOTE | 2023-02-09 09:03 | P.DS_ITS ---
DS: Providers Provider Date of Service: 02/09/23 Date of admission: 01/31/23 15:33 Primary care physician: None Physician Consults: 01/31/23 15:39 Addiction Medicine Routine Consulting Provider: Addiction Covering Reason for consultation: Alcohol withdrawal DS: Diagnosis Discharge Diagnosis (1) Alcohol withdrawal syndrome: Status: Acute DS: Summary Hospital Course Hospital Course: from initial hpi: 62-year-old male with a PMH significant for?HTN, HLD, [id number] diabetes type 2, BPH, alcohol use disorder with hx of withdrawal seizures, hx of opioid use disorder on Suboxone, anxiety, and depression who presents to the ED with complaints of alcohol withdrawal. Pt is somnolent but arousable at time of interview, but appears acutely intoxicated with slurred speech and occasional n onsensical answers. He reports currently drinking 20+ beers and one pint of vodka daily with last drink this morning around 7:00. Says he has a history of difficult detoxes which include a hx of withdrawal seizures. Presents today because he wants to detox and stop drinking but needs help to do so. Initially reported some nausea when he arrived but currently none. Does not have any other acute medical complaints. Denies chest pain/pressure, palpitations. No SOB. Denies fever, chills, abdominal pain. In the ED pt was afebrile and satting as low at 88% on RA. Labs were significant for AST 164 and ALT 71, otherwise unremarkable. Stable H&H. Electrolytes WNL. Renal function WNL. Pt was treated with IVF, Ativan, thiamine, and started on phenobarb protocol. Pt will be admitted to the hospital for treatment of acute alcohol withdrawal. hospital course: Patient was admitted for acute alcoholic pancreatitis. He was treated with IV fluids and pain medication, diet was slowly advanced to solids. Patient is currently tolerating well. For alcohol dependence with withdrawal he was treated with 2 courses of phenobarbital. Withdrawal symptoms have significantly improved. On discharge she will be given Librium taper. For hypertension was continue metoprolol and lisinopril. For diabetes was continue on insulin. For hyperlipidemia was continue statin. For BPH was continue on finasteride and tamsulosin. For opiate use disorder was continue on Suboxone. For constipation given bowel regimen. For mood disorder was continue on buspirone, hydroxyzine, for chronic pain was continued on gabapentin and cyclobenzaprine. Patient is feeling better will be discharged home. Time Attestation Discharge coordination time: Greater than 30 minutes Quality: Safe Use of Opioids Does Pt have an Active Cancer Diagnosis on the Problem List?: No Quality: Stroke Does the patient have a stroke diagnosis?: No Physical Exam Vital Signs: Vital Signs: Last Vital Signs Temp 97.8 F 02/09/23 07:09 Pulse 74 02/09/23 07:09 Resp 20 02/09/23 07:09 BP 140/82 H 02/09/23 07:09 Pulse Ox 97 02/09/23 07:09 O2 Del Method Room Air 02/09/23 07:09 O2 Flow Rate 2 01/31/23 19:04 BMI result Body Mass Index 32.3 General: AO X 3, no acute distress Resp: CTA bilateral, no accessory muscles used CVS: S1,S2,RRR GI: soft, non tender, non distended Neuro: motor grossly intact, alert Psych: appropriate affect, appropriate insight DS: Data Data Completed and Pending Completed studies during hospitalization [Text1]: Procedures Detoxification Services for Substance Abuse Treatment (11/21/22) Labs on day of discharge: Laboratory Results - last 24 hr 02/08/23 02/08/23 02/08/23 10:58 16:20 19:46 WBC RBC Hgb Hct MCV MCH MCHC RDW Plt Count MPV Absolute Nucleated RBC Nucleated RBC % (auto) Sodium Potassium Chloride Carbon Dioxide Anion Gap BUN Creatinine Estim Creat Clear Calc Estimated GFR POC Glucose 99 209 H 103 Fasting Glucose Calcium Magnesium Total Bilirubin Direct Bilirubin AST ALT Alkaline Phosphatase Total Protein Albumin 02/09/23 02/09/23 05:20 07:13 WBC 7.8 RBC 4.19 L Hgb 13.0 L Hct 38.9 L MCV 92.8 MCH 31.0 MCHC 33.4 RDW 13.3 Plt Count 368 D MPV 9.9 Absolute Nucleated RBC 0.000 Nucleated RBC % (auto) 0.0 Sodium 142 Potassium 4.7 D Chloride 107 Carbon Dioxide 27 Anion Gap 13 BUN 11 Creatinine 0.86 Estim Creat Clear Calc 103.8 Estimated GFR > 60 POC Glucose 130 H Fasting Glucose 104 H Calcium 9.4 Magnesium 2.4 Total Bilirubin 0.2 Direct Bilirubin < 0.2 AST 26 ALT 28 Alkaline Phosphatase 71 Total Protein 7.2 Albumin 3.7 Discharge Plan Discharge Anticipated Discharge Date/Time: 02/09/23 08:58 Patient Disposition: Home, Self-Care Discharge Diagnosis: withdrawal, pancreatitis Referrals: Physician,None [Primary Care Provider] - 1 Week Discharge Medications: New chlordiazepoxide HCl 25 mg capsule 25 mg PO TID PRN (Reason: alcohol withdrawal) Qty: 15 0RF Rx Instructions: 50mg twice day 1, then 25mg twice day 2, then 25mg at bedtime until complete oxycodone 5 mg tablet 5 mg PO TID PRN (Reason: moderate pain (scale score 5-6)) Qty: 10 0RF Rx Instructions: Partial Fill upon patient request. Continued multivitamin Tablet 1 tab PO DAILY buspirone 5 mg Tablet 5 mg PO BID atorvastatin 20 mg Tablet 10 mg PO BEDTIME sennosides-docusate sodium 8.6-50 mg Tablet 2 tab-cap PO BEDTIME gabapentin 400 mg Capsule 1,200 mg PO TID acyclovir 400 mg Tablet 400 mg PO BID tamsulosin 0.4 mg Capsule 0.8 mg PO BEDTIME trazodone 100 mg Tablet 300 mg PO BEDTIME metformin 1,000 mg Tablet 1,000 mg PO DAILY finasteride 5 mg Tablet 5 mg PO DAILY melatonin 5 mg Tablet 5 mg PO BEDTIME buprenorphine-naloxone [Suboxone] 8-2 mg Film 2 film BUCCAL DAILY Rx Instructions: place 1 film on inside of (each) cheek metoprolol succinate 25 mg Capsule,Sprinkle,Er 24hr 25 mg PO BEDTIME hydroxyzine HCl 25 mg Tablet 25 mg PO BEDTIME lisinopril 2.5 mg Tablet 2.5 mg PO DAILY cyclobenzaprine 10 mg Tablet 10 mg PO TID PRN (Reason: Muscle Spasm) Metamucil 3.4 gram/5.4 gram Powder 1 tbsp PO DAILY PRN (Reason: Constipation) Rx Instructions: mix into at least 8 oz of water or juice before administering Discharge Orders: Discharge Order (Routine); Ordered 02/09/23 Ordered By: Adrián Medina Diet: Advance to usual diet Activity on Discharge: As tolerated Stand Alone Forms: Patient Portal Discharge page Care Plan Goals: recovery Health Concerns: etoh dependence Plan of Treatment: librium taper, no etoh Assessment: see above
--- NOTE | 2023-02-09 10:54 | MHC.CM.PN ---
Pt will d/c to home today with outpt f/u. Pt will contact family for transportation and had no questions or services needed.
[2023-02-09 11:07] VITALS: BP 151/84; PULSE 77; RESP 18; TEMP 36.6; O2SAT 95
[2023-02-09 11:42] LABS: Glucose, Whole Blood 219 mg/dL (60-115)
== END 2023-02-09 13:10 | disposition home or self-care (01) | DRG 439 ==
LOC: HO.ED 14:32 → HO.EDOVER 15:45 → HO.IMC 18:16
PROVIDERS: Family Medicine; Registered Nurse Emergency; Admitting Provider Student in an Organized Health Care Education/Training Program; Emergency Provider Emergency Medicine; Referring Provider Student in an Organized Health Care Education/Training Program; Visit Provider Internal Medicine
DX: K85.20 Alcohol induced acute pancreatitis without necrosis or infection (principal); F10.221 Alcohol dependence with intoxication delirium; F11.20 Opioid dependence, uncomplicated; F10.231 Alcohol dependence with withdrawal delirium; K29.20 Alcoholic gastritis without bleeding; K59.00 Constipation, unspecified; G89.29 Other chronic pain; Y90.8 Blood alcohol level of 240 mg/100 ml or more; N40.0 Benign prostatic hyperplasia without lower urinary tract symptoms; I10 Essential (primary) hypertension; F41.8 Other specified anxiety disorders; E11.9 Type 2 diabetes mellitus without complications; E78.5 Hyperlipidemia, unspecified; Z87.891 Personal history of nicotine dependence; Z79.84 Long term (current) use of oral hypoglycemic drugs; Z79.899 Other long term (current) drug therapy
CPT/HCPCS: 36415; 74177; 80048; 80053; 80076; 80307; 81001; 82947; 83615; 83690; 83735; 85025; 85027; 93005; 97161; 99285; J1170; J1650; J1885; J2060; J2270; J2405; J2560; J3411; J7120; Q9967

== ENCOUNTER → 2023-01-31 15:33 | Outpatient (BNV) | payer OTHER, SELFPAY | PROVIDERS: Admitting Provider Student in an Organized Health Care Education/Training Program; Emergency Provider Emergency Medicine; Visit Provider Family Medicine | DX: F10.930 Alcohol use, unspecified with withdrawal, uncomplicated (principal) | CPT/HCPCS: 99223; 99232; 99233; 99239; 99499 ==

== ENCOUNTER 2023-07-17 14:17 | Inpatient (IN) | payer OTHER, SELFPAY ==
--- NOTE | ~2023-07-17 | CT_ITS ---
EXAMINATION: CT ABDOMEN AND PELVIS WITH CONTRAST CLINICAL INFORMATION: Left upper quadrant pain and nausea; history of pancreatitis. COMPARISON: CT abdomen and pelvis dated 02/03/2023. TECHNIQUE: Multidetector volumetric images were obtained from the superior aspect of the liver through the pubic symphysis following administration 85 mL of Omnipaque 350 intravenous contrast. Sagittal and coronal reformatted images were obtained on the technologist's workstation. Oral contrast: No This CT examination was performed using dose optimization techniques as appropriate, variously including the following: *Automated exposure control *Adjustment of mA and/or kV according to patient size (this includes techniques or standardized protocols for targeted exams where dose is matched to indication/reason for exam; i.e. extremities or head) *Use of iterative reconstruction technique DLP: 375 mGy-cm FINDINGS: LUNG BASES: There is bibasilar dependent hypoaeration. LIVER, GALLBLADDER, AND BILIARY TREE: The liver is normal in size, shape, and mildly diminished in attenuation. No focal hepatic lesion or biliary ductal dilatation is present. The gallbladder is surgically absent. PANCREAS: Unremarkable. SPLEEN: Surgically absent with hypertrophied accessory splenic tissue. ADRENAL GLANDS: Unremarkable. KIDNEYS AND URETERS: The kidneys are normal in size, shape, and attenuation. At the lower pole of the left kidney (5:37), a 5 mm nonobstructing calculus is seen. No further urinary calculus is seen, there is no obstructive uropathy. No perinephric stranding. At the interpolar right kidney (15:38), a 1.9 cm, simple cyst is seen, for which no imaging follow-up is recommended. BLADDER: The urinary bladder is distended. No focal wall thickening, mass, nodule or calculus is noted. GASTROINTESTINAL TRACT: There is a patent mid small bowel anastomotic staple line. There is mild diverticulosis, without acute diverticulitis. No obstruction, free intraperitoneal air or abscess is seen. There is no focal bowel wall thickening. The vermiform appendix is unremarkable. ABDOMINAL WALL: There are small fat-containing bilateral inguinal hernias, left greater than right. LYMPH NODES: Normal. VASCULAR: No abdominal aortic aneurysm or dissection is seen. PELVIC VISCERA: The prostate and seminal vesicles are unremarkable. OSSEOUS STRUCTURES: There is marked, confluent anterior endplate arthropathy at T8-T9 and T9-T10. No acute or aggressive osseous finding is noted. CT/CT abdomen pelvis w IV con IMPRESSION: 1. No bowel obstruction, free intraperitoneal air or abscess is seen. A patent mid small bowel anastomotic staple line is noted. Please correlate with the patient's Past Surgical History. There is mild diverticulosis, without acute diverticulitis. The vermiform appendix appears normal. 2. At the lower pole of the left kidney, a 5 nonobstructing calculus is seen. No further urinary calculus is seen, there is no obstructive uropathy. The urinary bladder is somewhat distended. 3. There is hepatic steatosis. 4. The gallbladder is surgically absent. 5. Unremarkable CT appearance of the pancreas. 6. There are small fat-containing bilateral inguinal hernias, left greater than right. 7. There is marked anterior endplate arthropathy at T8-T9 and T9-T10. No aggressive osseous lesion is seen. Fleischner guidelines were followed.
--- NOTE | ~2023-07-17 | XR_ITS ---
EXAMINATION: XR CHEST CLINICAL INFORMATION: Endotracheal tube placement COMPARISON: CXR from 10/21/2022. Chest CT from 07/17/2023 TECHNIQUE: Frontal view of the chest was obtained. FINDINGS: Endotracheal tube is 7.3 cm above the adrienne. Consider advancing the tube 3 cm. The tip of an NG tube is within the proximal stomach. Several EKG wires overlie the chest. The bronchial enriquez appear to be diffusely thickened, although differential diagnosis would include edema of the bronchovascular interstitium. No focal consolidation, pleural effusion or pneumothorax. Cardiac silhouette is normal in size. No acute osseous abnormality. XR/XR chest 1V IMPRESSION: Endotracheal tube is 7.3 cm above the adrienne. Bronchial enriquez (or peribronchovascular interstitium) are diffusely thickened.
--- NOTE | ~2023-07-17 | CT_ITS ---
EXAMINATION: CT ANGIOGRAM OF THE CHEST WITH AND WITHOUT CONTRAST (CT PULMONARY ANGIOGRAM FOR PE) CLINICAL INFORMATION: Reason for Exam unexplained hypoxia, LUQ pain COMPARISON: None available. TECHNIQUE: Prior to contrast administration, noncontrast localization images were obtained. Subsequently, multidetector volumetric imaging was performed from the thoracic inlet to below the diaphragms following the administration of 80 mL Omnipaque 350 intravenous contrast. No contrast reaction reported Sagittal, coronal, and MIP oblique sagittal reformatted images were obtained on the CT workstation, uploaded to PACS, and reviewed. This CT examination was performed using dose optimization techniques as appropriate, variously including the following: *Automated exposure control *Adjustment of mA and/or kV according to patient size (this includes techniques or standardized protocols for targeted exams where dose is matched to indication/reason for exam; i.e. extremities or head) *Use of iterative reconstruction technique Total exam dose-length product 1148 mGy-cm FINDINGS: QUALITY OF STUDY/CONTRAST BOLUS: Satisfactory. PULMONARY ARTERIES: No pulmonary emboli. Main pulmonary artery is not enlarged. THORACIC AORTA: No aneurysm. LUNG/PLEURA: Slight emphysematous changes. Respiratory motion artifact limits evaluation. 1 mm nodule anterolateral aspect right upper lobe (series 9, image 65). Central airways are patent. No pneumothorax. No large pleural effusion. MEDIASTINUM: Heart is not enlarged. No pericardial effusion. No coronary artery calcifications. A few mildly prominent mediastinal lymph nodes are noted greatest in the right paratracheal region measuring up to 1.2 cm in short axis. Visualized portions of the thyroid are unremarkable. No evidence of septal bowing or right heart strain. CHEST WALL/AXILLA: No axillary or internal mammary lymphadenopathy. OSSEOUS STRUCTURES: Degenerative changes of the thoracolumbar spine with large anterior bridging osteophytes. UPPER ABDOMEN: Decreased hepatic attenuation suggesting hepatic steatosis. Gallbladder surgically absent. Redemonstrated hypertrophy splenules. No reflux of contrast into the hepatic veins to suggest elevated right heart pressures. CT/CT angio chest PE protocol IMPRESSION: 1. No pulmonary emboli. 2. 1 mm nodule in the right upper lobe. Follow-up as per Fleischner criteria. 3. A few mildly prominent mediastinal lymph nodes are noted greatest in the right paratracheal region measuring up to 1.2 cm in short axis. 4. Decreased hepatic attenuation suggesting hepatic steatosis. 5. Gallbladder surgically absent. 6. Redemonstrated hypertrophied splenules. Various management parameters for solitary pulmonary nodules are in the literature. According to the Fleischner Society, recommendations for pulmonary nodules are as follows: According to the UPDATED 2017 Fleischner Society recommendations, the advised follow-up imaging for solid nodules < 6 mm is: HIGH RISK PATIENT: Optional CT at 12 months.
--- NOTE | ~2023-07-17 | XR_ITS ---
EXAMINATION: XR CHEST CLINICAL INFORMATION: ET tube position COMPARISON: 07/22/2023 TECHNIQUE: Frontal view of the chest was obtained. FINDINGS: An ET tube is present approximately 9.4 cm above the adrienne and could be advanced. An NG tube is present with its tip coiled in the gastric fundus. Heart size is within normal limits. Increasing right basilar atelectasis is present. No pneumothorax. No CHF. XR/XR chest 1V IMPRESSION: ET tube 9.4 cm above the adrienne and could be advanced. Increasing right basilar atelectasis.
--- NOTE | 2023-07-17 14:21 | ECG_ITS ---
Test Reason : CHEST PAIN Blood Pressure : / mmHG Vent. Rate : 099 BPM Atrial Rate : 099 BPM P-R Int : 164 ms QRS Dur : 112 ms QT Int : 348 ms P-R-T Axes : 017 083 009 degrees QTc Int : 446 ms Artifact in tracing Normal sinus rhythm Normal ECG When compared with ECG of 31-JAN-2023 23:14, QRS axis Shifted right Referred By: Generic ED Physician Electronically Signed By:HERLINDA BRIGHT
--- NOTE | 2023-07-17 15:15 | ED_ITS ---
HPI - General Adult General Chief complaint: ETOH/Substance Use Stated complaint: Chest pain, wants to detox Time Seen by Provider: 07/17/23 16:39 Source: patient and family Mode of arrival: ambulatory Limitations: no limitations History of Present Illness HPI narrative: Patient is a 62-year-old male with past medical history of alcohol use disorder, alcohol withdrawal seizures, depression, anxiety, hypertension, diabetes, hyperlipidemia presenting to emergency department with reports of abdominal pain requesting assistance with detox. He reports being admitted inpatient at this hospital approximately 6 months ago, reports he was admitted for about 4-5 days, and has abstained from alcohol up until the past 2 weeks. He admits that currently he has been drinking approximately 20-30 beers daily, denies any hard alcohol consumption. He is requesting assistance with detox, expresses concerns about having pancreatitis. Reports mid upper/left upper quadrant abdominal pain with associated nausea, that he feels is consistent with prior episodes of pancreatitis. He admits to his last alcoholic drink being at approximately 11:00 this morning. He is feeling very tremulous and anxious at this time. Related Data Home Medications ?Medication ?Instructions ?Recorded ?Confirmed acyclovir 400 mg tablet 400 mg PO BID 11/21/22 07/17/23 atorvastatin 20 mg tablet 10 mg PO BEDTIME 11/21/22 07/17/23 buprenorphine 8 mg-naloxone 2 mg 1 film buccal BID 11/21/22 07/17/23 sublingual film (Suboxone) buspirone 5 mg tablet 5 mg PO BID 11/21/22 07/17/23 finasteride 5 mg tablet 5 mg PO DAILY 11/21/22 07/17/23 gabapentin 400 mg capsule 1,200 mg PO TID Anxiety/Pain 11/21/22 07/17/23 hydroxyzine HCl 25 mg tablet 25 mg PO BEDTIME 11/21/22 07/17/23 melatonin 5 mg tablet 5 mg PO BEDTIME 11/21/22 07/17/23 metformin 1,000 mg tablet 1,000 mg PO DAILY 11/21/22 07/17/23 metoprolol succinate 25 mg capsule 25 mg PO BEDTIME 11/21/22 07/17/23 sprinkle, ext. release 24 hr multivitamin 1 tab PO DAILY 11/21/22 07/17/23 sennosides 8.6 mg-docusate sodium 2 tab-cap PO BEDTIME Constipation 11/21/22 07/17/23 50 mg tablet tamsulosin 0.4 mg capsule 0.8 mg PO BEDTIME 11/21/22 07/17/23 trazodone 100 mg tablet 300 mg PO BEDTIME 11/21/22 07/17/23 cyclobenzaprine 10 mg tablet 10 mg PO TID PRN Muscle Spasm 01/31/23 07/17/23 duloxetine 60 mg capsule,delayed 60 mg PO DAILY 07/17/23 07/17/23 release sprinkle testosterone 1.62 % (20.25 mg/1.25 2 packet transdermal DAILY 07/17/23 07/17/23 gram) transdermal gel packet vitamin B complex 1 tab PO DAILY 07/17/23 07/17/23 Allergies Allergy/AdvReac Type Severity Reaction Status Date / Time No Known Allergies Allergy Verified 07/17/23 15:19 [facility] Past Medical History Medical History Alcohol use disorder, severe, dependence Alcohol abuse Hyperlipidemia Depression with anxiety Diabetes Hypertension Social History Social History Household Members: None Household Members Other:: Self with a dog{ Parker} Housing: House Do you presently have visiting nurse or other home services: No Alcohol intake: current Alcohol intake frequency: 3 or more drinks per day Alcohol type: beer Comment: Pt. steady on feet, pt. states ambulating helps him w/ gas . Low fall ris Patient Tobacco Use Status: Former Tobacco user Quit Date: 2014 Second Hand Smoke Exposure: No Substance Use Type: Marijuana service: Yes Physical Exam ED Vital Signs: Vital Signs - 24 hr 07/17/23 15:16 07/17/23 17:55 07/17/23 18:00 Temperature 98 F 97.9 F Pulse Rate 95 105 H Respiratory Rate 22 H 16 Blood Pressure 117/85 119/82 Pulse Oximetry 98 86 L 90 L Oxygen Delivery Method Room Air Room Air Nasal Cannula Oxygen Flow Rate 2 BMI result Body Mass Index 33.3 Course Course Course Narrative: RME- 62 year old male presents for evaluation of alcohol abuse. Patient reports drinking beer daily. He was last in recovery 6 months ago. He reports a history of withdrawal seizures. He is seeking detox. Plan for labs, EKG, addiction medicine consult Reevaluation(s) Reevaluation #1: CTA is without evidence of PE, pulmonary nodule in the right upper lobe, hepatic steatosis, otherwise CT abdomen pelvis without acute intra-abdominal pathology. Patient be admitted to medicine service for ETOH withdrawal given history of withdrawal seizures, hospitalist Dr. Tipton, started on phenobarb Time: 01:18 Medications Administered Generic Name Dose Route Start Last Admin Trade Name Freq PRN Reason Stop Dose Admin Albuterol/Ipratropium 3 ml 07/17/23 20:00 07/17/23 19:58 Albuterol/Iprat 2.5/0.5mg 3 Ml Ampul.Neb INHALE 3 ml RQ4H WHILE AWAKE ANA Administration Enoxaparin Sodium 40 mg 07/17/23 20:00 07/17/23 20:48 Enoxaparin Sodium 40 Mg/0.4 Ml Syringe SUBCUT 40 mg Q24H ANA Administration Hydroxyzine HCl 25 mg 07/17/23 21:55 07/17/23 22:16 Hydroxyzine Hcl 25 Mg Tablet PO 25 mg BEDTIME ANA Administration Insulin Human Lispro 0 unit 07/17/23 21:00 07/17/23 21:54 Insulin Lispro 100 Unit/Ml 3 Ml Vial SUBCUT Not Given QIDACHS ANA Protocol Methylprednisolone Sodium Succinate 40 mg 07/17/23 21:00 07/17/23 22:16 Methylprednisolone Sod Succ 40 Mg/Ml Vial IVPUSH 40 mg Q12H ANA Administration Phenobarbital Sodium 260 mg 07/18/23 00:00 07/18/23 00:36 Phenobarbital Sodium 130 Mg/Ml Vial Im Q3hx2 IM 07/18/23 03:01 260 mg Q3H ANA Administration Protocol Sodium Chloride 3 ml 07/18/23 00:00 07/18/23 00:35 0.9 % Sodium Chloride Flush 3 Ml Syringe IVFLUSH 3 ml QSHIFT ANA Administration Discontinued Medications Generic Name Dose Route Start Last Admin Trade Name Freq PRN Reason Stop Dose Admin Sodium Chloride 1,000 mls @ 999 mls/hr 07/17/23 16:45 07/17/23 17:57 Ns IV 07/17/23 17:45 Infused .Q1H1M ANA Infusion Thiamine HCl 100 mg/ Sodium 101 mls @ 202 mls/hr 07/17/23 19:39 07/17/23 21:08 Chloride IV 07/17/23 20:08 Infused ONCE ONE Infusion Iohexol 85 ml 07/17/23 18:03 07/17/23 18:03 Iohexol 350 Mg/Ml 100 Ml Infus..Btl IV 07/17/23 18:04 85 ml ONCE ONE Administration Lorazepam 2 mg 07/17/23 16:36 07/17/23 16:47 Lorazepam 2 Mg/Ml Vial IVPUSH 07/17/23 16:37 2 mg ONCE ONE Administration Pantoprazole Sodium 40 mg 07/17/23 19:39 07/17/23 20:46 Pantoprazole Sodium 40 Mg/10 Ml Vial IVPUSH 07/17/23 19:40 40 mg ONCE ONE Administration Phenobarbital Sodium 349.7 mg 07/17/23 20:00 07/17/23 20:48 Phenobarbital Sodium 130 Mg/Ml Im Once IM 07/17/23 20:01 349.7 mg ONCE ONE Administration Protocol Procedures Smoking Cessation Time Spent Discussing Smoking Cessation w/Patient (min): 5 Patient Acknowledges Need for Cessation: No Additional Comments: Declines interest in smoking cessation, declines nicotine replacement therapy Medical Decision Making Medical Decision Making MDM Narrative: Patient is a 62-year-old male with past medical history of alcohol use disorder, alcohol withdrawal seizures, depression, anxiety, hypertension, non-insulin dependent diabetes, hyperlipidemia, BPH presenting to emergency department with reports of abdominal pain requesting assistance with detox from alcohol as per HPI. At the time of my evaluation is O2 saturation is noted to be 90% on room air, he denies chest pain, shortness of breath, difficulty breathing, dizziness, lightheadedness. He states that it is typical for his O2 saturation to be around 90%. He reports he is supposed to be using CPAP, he does confirm that this is post be used at night while sleeping due to his HAILEY. On review of his chart, he has had multiple occasions where his O2 saturation is down to 92%. Nursing staff is advised me that they have noted his O2 saturation to drop as low as 83% with a appropriate reading Pl[place], given his location of pain, mid upper ABD and left upper quadrant ABD, also obtain CT angio of the chest to exclude pulmonary embolism in addition to CT AP for further evaluation of pancreatitis, Will obtain CBC to evaluate for leukocytosis/ anemia, CMP and lipase to evaluate for abnormal electrolytes /abnormal renal function/ abnormal hepatic/biliary function, EKG and troponin to evaluate for ischemia/ACS and Urinalysis. Differential Diagnosis Differential Diagnoses: The differential diagnosis associated with the presentation includes (See narrative above) Pulmonary embolism, pneumonia, aspiration, ACS, pancreatitis, alcohol withdrawal Admission/Observation Consideration of admission/observation: Escalation of care including admission/observation considered (See narrative above and course narrative for further detail) Lab Data MDM Lab Attestation statement: I reviewed the patient's lab results. CBC is without leukocytosis or anemia. No electrolyte derangement. No JOSELITO. Transaminases and lipase are within normal range. High sensitive troponin 0 within normal range at 2.8. Urinalysis without evidence of infection or microscopic hematuria. Alcohol level of 134 at 15:34 07/17/23 15:34 07/17/23 15:34 Labs: Lab Results 07/17/23 07/17/23 07/17/23 Range/Units 15:34 16:53 16:55 WBC 7.8 (4.8-10.8) X10*3/uL RBC 5.06 D (4.60-5.80) X10*6/uL Hgb 15.6 (14.0-18.0) g/dl Hct 44.8 (42.0-52.0) % MCV 88.5 (80.0-98.0) fL MCH 30.8 (27.0-33.0) pg MCHC 34.8 (31.0-36.0) g/dl RDW 14.4 (11.0-16.0) % Plt Count 208 D (160-400) X10*3/uL MPV 10.0 (9.4-12.4) fL Immature Gran % (Auto) 0.3 (0.0-0.4) % Neut % (Auto) 53.3 (45-73) % Lymph % (Auto) 35.3 (20-40) % [place] % (Auto) 9.1 (2-11) % Eos % (Auto) 0.9 (0-4) % Baso % (Auto) 1.1 (0-2) % Lymph # (Auto) 2.8 (1.2-4.9) X10*3/uL [place] # (Auto) 0.7 (0.1-1.2) X10*3/uL Eos # (Auto) 0.1 (0.0-0.4) X10*3/uL Baso # (Auto) 0.1 (0.0-0.2) X10*3/uL Abs Immat Gran (auto) 0.02 (0.00-0.03) X10*3/uL Absolute Neuts (auto) 4.2 (2.0-8.3) x10*3/uL Absolute Nucleated RBC 0.000 (0.0-0.012) X10*3/uL Nucleated RBC % (auto) 0.0 (0.0-0.2) /100WBC Sodium 135 (135-145) mmol/L Potassium 4.5 (3.3-5.1) mmol/L Chloride 100 (96-108) mmol/L Carbon Dioxide 24 (22-29) mmol/L Anion Gap 16 (12-20) BUN 12 (9-16) mg/dL Creatinine 0.85 (0.5-1.4) mg/dL Estim Creat Clear Calc 106.6 Estimated GFR > 60 Random Glucose 126 H (60-115) mg/dL Calcium 8.8 D (8.4-10.2) mg/dL Total Bilirubin 0.5 (0.0-1.0) mg/dL AST 25 (5-37) U/L ALT 21 (0-40) U/L Alkaline Phosphatase 67 (39-117) U/L Troponin I High Sens 2.8 (<3.5-35.0) ng/L B-Natriuretic Peptide Cancelled Total Protein 7.6 (6.5-8.0) g/dL Albumin 4.2 (3.5-5.0) g/dL Lipase 15 (8-78) U/L Urine Color Yellow Urine Appearance Clear Urine pH 6.0 (5.0-9.0) Ur Specific [place] <= 1.005 (1.005-1.025) Urine Protein Negative (Neg-Trace) mg/dL Urine Glucose (UA) Negative (Negative) mg/dL Urine Ketones Negative (Negative) mg/dL Urine Blood Negative (Negative) Urine Nitrite Negative (Negative) Ur Leukocyte Esterase Negative (Negative) Urine Opiates Screen Not Detected (Not Detect) Ur Buprenorphine Scrn Positive H (Not Detect) ng/mL Ur Oxycodone Screen Not Detected (Not Detect) ng/mL Urine Methadone Screen Not Detected (Not Detect) ng/mL Urine Fentanyl Screen Not Detected (Not Detect) Ur Barbiturates Screen Not Detected (Not Detect) Ur Phencyclidine Scrn Not Detected (Not Detect) Ur Amphetamines Screen Not Detected (Not Detect) U Benzodiazepines Scrn Not Detected (Not Detect) Urine Cocaine Screen Not Detected (Not Detect) U Marijuana (THC) Screen Not Detected (Not Detect) Ethyl Alcohol 134 mg/dL Radiology Impression Discussion of test interpretation with radiology: I have reviewed the radiologist's reading. Radiologist Impression: CT/CT abdomen pelvis w IV con IMPRESSION: 1. No bowel obstruction, free intraperitoneal air or abscess is seen. A patent mid small bowel anastomotic staple line is noted. Please correlate with the patient's Past Surgical History. There is mild diverticulosis, without acute diverticulitis. The vermiform appendix appears normal. 2. At the lower pole of the left kidney, a 5 nonobstructing calculus is seen. No further urinary calculus is seen, there is no obstructive uropathy. The urinary bladder is somewhat distended. 3. There is hepatic steatosis. 4. The gallbladder is surgically absent. 5. Unremarkable CT appearance of the pancreas. 6. There are small fat-containing bilateral inguinal hernias, left greater than right. 7. There is marked anterior endplate arthropathy at T8-T9 and T9-T10. No aggressive osseous lesion is seen. CT/CT angio chest PE protocol IMPRESSION: 1. No pulmonary emboli. 2. 1 mm nodule in the right upper lobe. Follow-up as per Fleischner criteria. 3. A few mildly prominent mediastinal lymph nodes are noted greatest in the right paratracheal region measuring up to 1.2 cm in short axis. 4. Decreased hepatic attenuation suggesting hepatic steatosis. 5. Gallbladder surgically absent. 6. Redemonstrated hypertrophied splenules. Independent Historian Clinical information obtained from an independent historian. History obtained from or confirmed by: Spouse External Record Review External record reviewed: Inpatient record Critical Care Time Critical Care Time Critical Care Time: Yes Total Critical Care Time: 45 Attestation: I personally attest to this critical care time spent taking care of the patient exclusive of all other billable procedures was approximately 45 minutes including initial evaluation of patient, ordering tests, phenobarbital initiation alcohol withdrawal, EKG interpretation, medical consultation, documentation, re-evaluation. Discharge Plan Discharge Clinical Impression: Alcohol withdrawal syndrome, Acute hypoxemic respiratory failure Patient Disposition: Admitted As Inpatient Interventions: Admission Worksheet (ED) Last Done: 07/17/23 20:59 Discharge Date/Time: 07/17/23 21:53
[2023-07-17 15:16] VITALS: BP 117/85; PULSE 95; RESP 22; TEMP 36.6; O2SAT 98; BMI 33.3
[2023-07-17 15:37] LABS: MANUAL DIFF FLAG NO
[2023-07-17 15:42] LABS: Basophils Absolute Auto 0.1 X10*3/uL (0.0-0.2); Basophils Percent Auto 1.1 % (0-2); Eosinophils Absolute Auto 0.1 X10*3/uL (0.0-0.4); Eosinophils Percent Auto 0.9 % (0-4); Hematocrit 44.8 % (42.0-52.0); Hemoglobin 15.6 g/dl (14.0-18.0); Imm Gran Abs Auto 0.02 X10*3/uL (0.00-0.03); Imm Gran Pct Auto 0.3 % (0.0-0.4); Lymphocytes Absolute Auto 2.8 X10*3/uL (1.2-4.9); Lymphocytes Percent Auto 35.3 % (20-40); Mean Corpuscular HGB Conc 34.8 g/dl (31.0-36.0); Mean Corpuscular Hemoglobin 30.8 pg (27.0-33.0); Mean Corpuscular Volume 88.5 fL (80.0-98.0); Monocytes Absolute Auto 0.7 X10*3/uL (0.1-1.2); Monocytes Percent Auto 9.1 % (2-11); Neutrophils Absolute Auto 4.2 x10*3/uL (2.0-8.3); Neutrophils Percent Auto 53.3 % (45-73); Platelet Count 208 X10*3/uL (160-400); Red Blood Count 5.06 X10*6/uL (4.60-5.80); Red Cell Distribution Width 14.4 % (11.0-16.0); White Blood Count 7.8 X10*3/uL (4.8-10.8)
[2023-07-17 15:56] LABS: Alanine Aminotransferase 21 U/L (0-40); Albumin Level 4.2 g/dL (3.5-5.0); Alkaline Phosphatase 67 U/L (39-117); Anion Gap 16 (12-20); Aspartate Amino Transferase 25 U/L (5-37); Bilirubin Total 0.5 mg/dL (0.0-1.0); Blood Urea Nitrogen 12 mg/dL (9-16); Calcium 8.8 mg/dL (8.4-10.2); Carbon Dioxide 24 mmol/L (22-29); Chloride 100 mmol/L (96-108); Creatinine Clr Calc Pharmacy 106.6; Estimated Glomerular Filt Rate > 60; Ethanol 134 mg/dL; Glucose Random 126 mg/dL (60-115); Lipase 15 U/L (8-78); Potassium 4.5 mmol/L (3.3-5.1); Sodium 135 mmol/L (135-145); Total Protein 7.6 g/dL (6.5-8.0)
[2023-07-17 16:03] LABS: Troponin-I High Sensitivity 2.8 ng/L (<3.5-35.0)
[2023-07-17] MEDS: 0.9 % Sodium Chloride 1,000 ML 999 ML IV (16:46)
[2023-07-17] MEDS: LORazepam 2 MG/ML VIAL IVPUSH (16:47)
[2023-07-17 17:02] LABS: Appearance Urine Clear; Color Urine Yellow; Glucose Urine UA Negative (Negative); Leukocyte Esterase Urine Negative (Negative); Nitrite Urine Negative (Negative); Specific Gravity - Urine <= 1.005 (1.005-1.025); Urine Blood Negative (Negative); Urine Ketones Negative (Negative); Urine Protein Negative (Neg-Trace)
[2023-07-17 17:15] LABS: Amphetamine Screen Urine Not Detected (Not Detect); Barbiturates, Urine Not Detected (Not Detect); Benzodiazepines Screen Urine Not Detected (Not Detect); Buprenorphine Scr Positive (Not Detect); Cannabinoid Screen Urine Not Detected (Not Detect); Cocaine Screen Urine Not Detected (Not Detect); Fentanyl, urine Not Detected (Not Detect); Methadone Screen, Urine Not Detected (Not Detect); Opiate Screen Urine Not Detected (Not Detect); Oxycodone Screen Urine Not Detected (Not Detect); Phencyclidine Screen Urine Not Detected (Not Detect)
[2023-07-17 17:55] VITALS: O2SAT 86
[2023-07-17 18:00] VITALS: BP 119/82; PULSE 105; RESP 16; TEMP 36.6; O2SAT 90
[2023-07-17] MEDS: iohexoL 350 MG/ML 100 ML INFUS..BTL 85 ML IV (18:03)
--- NOTE | 2023-07-17 19:52 | P.HPHOSP_ITS ---
History of Present Illness Date of Service: 07/17/23 Chief Complaint: Alcohol withdrawal This is a 62-year-old male with pertinent history of alcohol use disorder with history of alcohol withdrawal, inf-jyhapdq-[id number] diabetes mellitus, mood disorder, BPH, tobacco use disorder, essential hypertension, mixed hyperlipidemia, opiates use disorder on Suboxone, chronic pain who presents to the emergency department for concerns of alcohol withdrawal. Patient states he drinks about 30 beers per day and his last drink was 1pm on the day of presentation. Patient was admitted about 6 months ago for alcohol withdrawal. Does have a history of alcohol withdrawal seizures. Patient states he has been having anxiety and tremors since his last drink. Is seeking detox. Also complains of nausea and generalized abdominal discomfort, constant, nonradiating, no relieving factors. Patient denies fever, chills, chest discomfort, palpitations, changes in urinary or bowel habits. Endorses smoking tobacco and admits wheezing. In the emergency department, patient was initiated on phenobarb protocol. Review of Systems 2 Constitutional: Constitutional: Reports no additional constitutional complaints Cardiovascular: Cardiovascular: Reports no additional cardiovascular complaints Respiratory: Respiratory: Reports no additional respiratory complaints Gastrointestinal: Gastrointestinal: Reports abdominal pain and Reports nausea Genitourinary: Genitourinary: Reports no additional male genitourinary complaints Musculoskeletal: Musculoskeletal: Reports no additional musculoskeletal complaints Neurologic: Reports tremor(s) Psychiatric: Psychiatric: Reports anxiety [facility] Medical History Alcohol use disorder, severe, dependence Alcohol abuse Hyperlipidemia Depression with anxiety Diabetes Hypertension Pertinent family history: No family history of early CAD Social History Household Members: None Household Members Other:: Self with a dog{ Parker} Housing: House Do you presently have visiting nurse or other home services: No Alcohol intake: current Alcohol intake frequency: 3 or more drinks per day Alcohol type: beer Comment: Pt. steady on feet, pt. states ambulating helps him w/ gas . Low fall ris Patient Tobacco Use Status: Former Tobacco user Smoked in Last 30 Days: No Substance Use Type: Marijuana Advance Directives: No Advance Directives Information Provided: No Do you have a plan to hurt others: No Plan service: Yes Meds Allergies Allergy/AdvReac Type Severity Reaction Status Date / Time No Known Allergies Allergy Verified 07/17/23 15:19 Active Medications: Current Medications Acetaminophen (Acetaminophen 325 Mg Tablet) 650 mg PO Q6H PRN PRN Reason: Pain, Mild (Pain Scale 1-3) Enoxaparin Sodium (Enoxaparin Sodium 40 Mg/0.4 Ml Syringe) 40 mg SUBCUT Q24H [facility] Glucose (Glucose Gel 15 Gm Gel..Gram.) 15 gm PO Q15M PRN; Protocol PRN Reason: per Hypoglycemia Standing Ord. Thiamine HCl 100 mg/ Sodium (Chloride) 101 mls @ 202 mls/hr IV ONCE ONE Stop: 07/17/23 20:08 Dextrose (D10) 250 mls @ 750 mls/hr IV Q15M PRN; Protocol PRN Reason: per Hypoglycemia Standing Ord. Insulin Human Lispro (Insulin Lispro 100 Unit/Ml 3 Ml Vial) 0 unit SUBCUT QIDACHS [facility]; Protocol Melatonin (Melatonin 3 Mg Tablet) 6 mg PO BEDTIME PRN PRN Reason: Insomnia Omeprazole (Omeprazole 40 Mg Capsule.Dr) 40 mg PO DAILY@0630 [facility] Ondansetron HCl (Ondansetron Hcl 4 Mg/2 Ml Vial) 4 mg IVPUSH Q8H PRN PRN Reason: Nausea and Vomiting Pharmacy Consult (Consult Rx Etoh Phenob Im/Po) 1 each MISCELLANE ONCE PRN; Protocol PRN Reason: Consult order Phenobarbital (Phenobarbital 15 Mg Tablet) 45 mg PO BID [facility]; Protocol Stop: 07/19/23 21:01 Phenobarbital (Phenobarbital 30 Mg Tablet) 30 mg PO BID [facility]; Protocol Stop: 07/21/23 21:01 Phenobarbital (Phenobarbital 15 Mg Tablet) 15 mg PO DAILY [facility]; Protocol Stop: 07/23/23 09:01 Phenobarbital Sodium (Phenobarbital Sodium 130 Mg/Ml Vial Im Q3hx2) 260 mg IM Q3H ANA; Protocol Stop: 07/18/23 02:01 Phenobarbital Sodium (Phenobarbital Sodium 130 Mg/Ml Im Once) 349.7 mg IM ONCE ONE; Protocol Stop: 07/17/23 20:01 Sodium Chloride (0.9 % Sodium Chloride Flush 3 Ml Syringe) 3 ml IVFLUSH QSHIFT [facility] Thiamine HCl (Thiamine Hcl 100 Mg Tablet) 100 mg PO DAILY [facility] Home Medications ?Medication ?Instructions ?Recorded ?Confirmed ?Last Taken ?Type acyclovir 400 mg tablet 400 mg PO BID 11/21/22 01/31/23 11/21/22 History atorvastatin 20 mg tablet 10 mg PO BEDTIME 11/21/22 01/31/23 11/20/22 History buprenorphine 8 mg-naloxone 2 mg 2 film buccal DAILY 11/21/22 01/31/23 11/21/22 History sublingual film (Suboxone) buspirone 5 mg tablet 5 mg PO BID 11/21/22 01/31/23 11/21/22 History finasteride 5 mg tablet 5 mg PO DAILY 11/21/22 01/31/23 11/21/22 History gabapentin 400 mg capsule 1,200 mg PO TID 11/21/22 01/31/23 11/21/22 History hydroxyzine HCl 25 mg tablet 25 mg PO BEDTIME 11/21/22 01/31/23 11/21/22 History lisinopril 2.5 mg tablet 2.5 mg PO DAILY 11/21/22 01/31/23 11/21/22 History melatonin 5 mg tablet 5 mg PO BEDTIME 11/21/22 01/31/23 11/20/22 History metformin 1,000 mg tablet 1,000 mg PO DAILY 11/21/22 01/31/23 11/21/22 History metoprolol succinate 25 mg capsule 25 mg PO BEDTIME 11/21/22 01/31/23 11/20/22 History sprinkle, ext. release 24 hr multivitamin 1 tab PO DAILY 11/21/22 01/31/23 11/21/22 History sennosides 8.6 mg-docusate sodium 2 tab-cap PO BEDTIME 11/21/22 01/31/23 11/20/22 History 50 mg tablet tamsulosin 0.4 mg capsule 0.8 mg PO BEDTIME 11/21/22 01/31/23 11/21/22 History trazodone 100 mg tablet 300 mg PO BEDTIME 11/21/22 01/31/23 11/20/22 History cyclobenzaprine 10 mg tablet 10 mg PO TID PRN Muscle Spasm 01/31/23 01/31/23 Unknown History psyllium husk 3.4 gram/5.4 gram 1 tbsp PO DAILY PRN Constipation 01/31/23 01/31/23 Unknown History oral powder (Metamucil) Physical Exam 2 Vital Signs and Narrative: Vital Signs: Last Vital Signs Temp 97.9 F 07/17/23 18:00 Pulse 105 H 07/17/23 18:00 Resp 16 07/17/23 18:00 BP 119/82 07/17/23 18:00 Pulse Ox 90 L 07/17/23 18:00 O2 Del Method Nasal Cannula 07/17/23 18:00 O2 Flow Rate 2 07/17/23 18:00 BMI result Body Mass Index 33.3 Middle-aged male lying in bed in mild distress on supplemental oxygen Neck supple, no JVD Regular rate and rhythm, S1-S2 heard , bilateral wheezing appreciated Abdomen soft nontender, no guarding, no rigidity Patient is awake, alert and oriented to self, place, time and person ; no focal motor deficit, bilateral hand tremors Psych: Anxious No pedal edema Results Labs 07/17/23 15:34 07/17/23 15:34 Labs: Laboratory Results - last 24 hr 07/17/23 07/17/23 07/17/23 15:34 16:53 16:55 MCV 88.5 MCH 30.8 MCHC 34.8 RDW 14.4 Plt Count 208 D MPV 10.0 Immature Gran % (Auto) 0.3 Neut % (Auto) 53.3 Lymph % (Auto) 35.3 [place] % (Auto) 9.1 Eos % (Auto) 0.9 Baso % (Auto) 1.1 Lymph # (Auto) 2.8 [place] # (Auto) 0.7 Eos # (Auto) 0.1 Baso # (Auto) 0.1 Abs Immat Gran (auto) 0.02 Absolute Neuts (auto) 4.2 Absolute Nucleated RBC 0.000 Nucleated RBC % (auto) 0.0 Anion Gap 16 Estim Creat Clear Calc 106.6 Estimated GFR > 60 Random Glucose 126 H Calcium 8.8 D Total Bilirubin 0.5 AST 25 ALT 21 Alkaline Phosphatase 67 Troponin I High Sens 2.8 Total Protein 7.6 Albumin 4.2 Lipase 15 Urine Color Yellow Urine Appearance Clear Urine pH 6.0 Ur Specific [place] <= 1.005 Urine Protein Negative Urine Glucose (UA) Negative Urine Ketones Negative Urine Blood Negative Urine Nitrite Negative Ur Leukocyte Esterase Negative Urine Opiates Screen Not Detected Ur Buprenorphine Scrn Positive H Ur Oxycodone Screen Not Detected Urine Methadone Screen Not Detected Urine Fentanyl Screen Not Detected Ur Barbiturates Screen Not Detected Ur Phencyclidine Scrn Not Detected Ur Amphetamines Screen Not Detected U Benzodiazepines Scrn Not Detected Urine Cocaine Screen Not Detected U Marijuana (THC) Screen Not Detected Ethyl Alcohol 134 Imaging Radiologist's Impressions: Impressions Abdomen/Pelvis CT 07/17/23 18:22 IMPRESSION: 1. No bowel obstruction, free intraperitoneal air or abscess is seen. A patent mid small bowel anastomotic staple line is noted. Please correlate with the patient's Past Surgical History. There is mild diverticulosis, without acute diverticulitis. The vermiform appendix appears normal. 2. At the lower pole of the left kidney, a 5 nonobstructing calculus is seen. No further urinary calculus is seen, there is no obstructive uropathy. The urinary bladder is somewhat distended. 3. There is hepatic steatosis. 4. The gallbladder is surgically absent. 5. Unremarkable CT appearance of the pancreas. 6. There are small fat-containing bilateral inguinal hernias, left greater than right. 7. There is marked anterior endplate arthropathy at T8-T9 and T9-T10. No aggressive osseous lesion is seen. Fleischner guidelines were followed. Chest CTA 07/17/23 18:24 IMPRESSION: 1. No pulmonary emboli. 2. 1 mm nodule in the right upper lobe. Follow-up as per Fleischner criteria. 3. A few mildly prominent mediastinal lymph nodes are noted greatest in the right paratracheal region measuring up to 1.2 cm in short axis. 4. Decreased hepatic attenuation suggesting hepatic steatosis. 5. Gallbladder surgically absent. 6. Redemonstrated hypertrophied splenules. Various management parameters for solitary pulmonary nodules are in the literature. According to the Fleischner Society, recommendations for pulmonary nodules are as follows: According to the UPDATED 2017 Fleischner Society recommendations, the advised follow-up imaging for solid nodules < 6 mm is: HIGH RISK PATIENT: Optional CT at 12 months. Assessment and Plan (1) Alcohol withdrawal syndrome: Qualifiers: Complication of substance-induced condition: uncomplicated Qualified Code(s): F10.930 - Alcohol use, unspecified with withdrawal, uncomplicated Status: Acute (2) Hypoxia: Status: Acute Plan This is a 62-year-old male with pertinent history of alcohol use disorder with history of alcohol withdrawal, cpu-pimytqh-hktlresyc diabetes mellitus, mood disorder, BPH, tobacco use disorder, essential hypertension, mixed hyperlipidemia, opiates use disorder on Suboxone, chronic pain who presents to the emergency department for concerns of alcohol withdrawal. #. Alcohol withdrawal: History of alcohol withdrawal seizures. Initiated on phenobarb protocol in the ER. Monitor CIWA. Initiating thiamine and consulting Addiction Team. #. Acute hypoxemic respiratory failure due to exacerbation of obstructive lung disease. Not on home inhaler but likely has underlying COPD due to significant tobacco use. Initiating systemic steroids, scheduled and p.r.n. DuoNebs. #. Tachycardia and tachypnea due to above. No sepsis #. Alcoholic gastritis: Initiating PPI #. Zjw-zoocafh-qytypftce diabetes mellitus: Initiating Accu-Cheks with sliding scale insulin #. Essential hypertension: On metoprolol and lisinopril #. Mixed hyperlipidemia: On statin #. Mood disorder: On buspirone, hydroxyzine #. BPH: On finasteride and Flomax #. Chronic pain on gabapentin and cyclobenzaprine #. Tobacco use disorder: Counseled regarding cessation. Refused nicotine patch Monitor CIWA DVT prophylaxis: Lovenox Full code Admit as inpatient and will require two night minimum hospital stay for supplemental oxygen, monitoring of mentation in a patient with alcohol withdrawal (as above), which is not possible in a lesser acute setting. Quality Stroke Does the patient have a stroke diagnosis?: No VTE Prior VTE?: No VTE Risk Level:: Medical - moderate - high VTE Device Contraindication: Treatment Not Indicated VTE Drug Contraindication: N/A - Med Ordered
[2023-07-17] MEDS: Albuterol/Iprat 2.5/0.5MG 3 ML AMPUL.NEB INHALE (19:58)
[2023-07-17 20:00] VITALS: PULSE 102; RESP 18; O2SAT 96
[2023-07-17] MEDS: Thiamine HCL 100 MG in 0.9 % Sodium Chloride 100 ML 202 MG IV (20:36)
[2023-07-17] MEDS: Pantoprazole Sodium 40 MG/10 ML VIAL IVPUSH (20:46)
[2023-07-17] MEDS: PHENobarbitaL sodium 130 MG/ML IM ONCE 349.7 MG IM (20:48)
[2023-07-17] MEDS: Enoxaparin Sodium 40 MG/0.4 ML SYRINGE SUBCUT (20:48)
[2023-07-17 20:49] VITALS: BP 125/88; PULSE 86; RESP 18; O2SAT 94
[2023-07-17 20:57] VITALS: BP 115/79; PULSE 87; RESP 18; TEMP 37.1; O2SAT 98
--- NOTE | 2023-07-17 20:58 | PHA.MEDREC ---
Pharmacy Consult ? Medication Reconciliation Pharmacy has completed the medication reconciliation. [facility] confirm medications [facility]. Reports no taking acamprosate, magnesium, vutd3 or metamucil [place] Rodriguez, [facility]
[2023-07-17 21:11] LABS: Glucose, Whole Blood 105 mg/dL (60-115)
[2023-07-17 21:56] VITALS: BMI 33.6
[2023-07-17] MEDS: hydrOXYzine HCL 25 MG TABLET PO (22:16)
[2023-07-17] MEDS: methylPREDNISolone Sod Succ 40 MG/ML VIAL IVPUSH (22:16)
[2023-07-18] VITALS (12 sets, daily range): BP systolic 124–150; BP diastolic 68–91; PULSE 102–147; RESP 16–22; TEMP 36–36.6; O2SAT 91–98
[2023-07-18] MEDS: 0.9 % Sodium Chloride Flush 3 ML SYRINGE IVFLUSH ×2 (00:35→09:01)
[2023-07-18] MEDS: PHENobarbitaL sodium 130 MG/ML VIAL IM Q3Hx2 260 MG IM ×2 (00:36→03:04)
[2023-07-18] MEDS: Omeprazole 40 MG CAPSULE.DR PO (06:18)
[2023-07-18] MEDS: Albuterol/Iprat 2.5/0.5MG 3 ML AMPUL.NEB INHALE ×3 (07:31→20:08)
[2023-07-18 07:37] LABS: Basophils Absolute Auto 0.1 X10*3/uL (0.0-0.2); Basophils Percent Auto 0.7 % (0-2); Hematocrit 45.8 % (42.0-52.0); Hemoglobin 15.4 g/dl (14.0-18.0); Imm Gran Abs Auto 0.04 X10*3/uL (0.00-0.03); Imm Gran Pct Auto 0.4 % (0.0-0.4); Lymphocytes Absolute Auto 0.5 X10*3/uL (1.2-4.9); Lymphocytes Percent Auto 4.3 % (20-40); MANUAL DIFF FLAG SCAN; Mean Corpuscular HGB Conc 33.6 g/dl (31.0-36.0); Mean Corpuscular Hemoglobin 30.4 pg (27.0-33.0); Mean Corpuscular Volume 90.5 fL (80.0-98.0); Mean Platelet Volume 10.7 fL (9.4-12.4); Monocytes Absolute Auto 0.2 X10*3/uL (0.1-1.2); Monocytes Percent Auto 1.6 % (2-11); Platelet Count 207 X10*3/uL (160-400); Red Blood Count 5.06 X10*6/uL (4.60-5.80); Red Cell Distribution Width 14.5 % (11.0-16.0); SCAN SMEAR FLAG 1; White Blood Count 10.7 X10*3/uL (4.8-10.8)
[2023-07-18 07:45] LABS: Glucose, Whole Blood 156 mg/dL (60-115)
[2023-07-18 07:52] LABS: Anion Gap 17 (12-20); Blood Urea Nitrogen 15 mg/dL (9-16); Calcium 9.3 mg/dL (8.4-10.2); Carbon Dioxide 24 mmol/L (22-29); Chloride 101 mmol/L (96-108); Creatinine Clr Calc Pharmacy 105.8; Estimated Glomerular Filt Rate > 60; Glucose Random 152 mg/dL (60-115); Potassium 4.6 mmol/L (3.3-5.1); Sodium 137 mmol/L (135-145)
[2023-07-18 08:44] LABS: SLIDE REVIEW VERIFIED
[2023-07-18] MEDS: PHENobarbitaL sodium 130 MG/ML VIAL 100 MG IM (08:49)
[2023-07-18] MEDS: busPIRone HCl 5 MG TABLET PO ×2 (08:50→20:25)
[2023-07-18] MEDS: DULoxetine HCl 60 MG CAPSULE.DR PO (08:50)
[2023-07-18] MEDS: Buprenorphine/Naloxone 8/2 mg FILM 1 FILM BUCCAL ×2 (08:50→20:42)
[2023-07-18] MEDS: methylPREDNISolone Sod Succ 40 MG/ML VIAL IVPUSH (08:50)
[2023-07-18] MEDS: PHENobarbitaL 15 MG TABLET 45 MG PO ×2 (08:51→20:21)
--- NOTE | 2023-07-18 09:23 | PC.NURSE ---
[address] Dr[address] Thompson Ennis notified. Patient also with complaint of nausea and vomiting at times. One time dose of 100mg IM phenobarbital ordered- see MAR for details. Some PO meds held per Dr. Thompson Ennis. Charted as not given- see note in MAR.
[2023-07-18 11:30] LABS: Glucose, Whole Blood 283 mg/dL (60-115)
[2023-07-18] MEDS: Metoprolol Tartrate 25 MG TABLET PO (12:08)
[2023-07-18] MEDS: Insulin Lispro 100 UNIT/ML 3 ML VIAL SUBCUT ×3 (12:08→20:42)
[2023-07-18] MEDS: ondansetron HCL 4 MG/2 ML VIAL IVPUSH (12:16)
--- NOTE | 2023-07-18 14:07 | HO.PM.IMPN ---
Subjective Subjective Date of Service: 07/18/23 Interval History: Being followed for alcohol withdrawal, on phenobarb protocol drinks 30 beers per day last drink 24 hours ago, alcohol level 134 on admission. At present patient complaining of shakiness, feels tremulous, complaining of mild nausea, mild headache, feels restless, noted to be tachycardic heart rates in 120 to 140s, CIWA 21, received extra dose of phenobarb this morning. Complaining of epigastric burning. Review of Systems All other system reviewed and negative Physical Exam Vital Signs: Vital Signs: Last Vital Signs Temp 97.9 F 07/18/23 09:50 Pulse 147 H 07/18/23 12:08 Resp 22 H 07/18/23 12:00 BP 132/87 07/18/23 12:08 Pulse Ox 95 07/18/23 12:00 O2 Del Method Room Air 07/18/23 12:00 O2 Flow Rate 2 07/18/23 03:11 BMI result Body Mass Index 33.6 Const: Other: Gen: Awake alert x3, in mild distress HEENT: sclera anicteric, moist mucus membranes Neck: supple Lungs: Bilateral scattered rhonchi , no tachypnea, no use of accessory muscle Heart: tachycardic, no murmurs Abd: soft, non-tender, non-distended, bowel sounds audible Ext: no edema Skin: warm/well-perfused Neuro: alert and oriented x3, shaky, tremulous Psych: Anxious Objective Data Active Medications Acetaminophen (Acetaminophen 325 Mg Tablet) 650 mg PO Q6H PRN PRN Reason: Pain, Mild (Pain Scale 1-3) Acyclovir (Acyclovir 200 Mg Capsule) 400 mg PO BID [facility] Last Admin: 07/18/23 09:02 Dose: Not Given Documented By: HEBERT Non-Admin Reason: See Note Al Hydroxide/Mg Hydroxide (Magnesium Hydrox/Alum Hydrox 30 Ml Oral.Susp) 30 ml PO Q4H PRN PRN Reason: heart burn Albuterol/Ipratropium (Albuterol/Iprat 2.5/0.5mg 3 Ml Ampul.Neb) 3 ml INHALE RQ4H WHILE AWAKE [facility] Last Admin: 07/18/23 11:24 Dose: 3 ml Documented By: BENITEZ Albuterol/Ipratropium (Albuterol/Iprat 2.5/0.5mg 3 Ml Ampul.Neb) 3 ml INHALE Q4H PRN PRN Reason: Wheezing Atorvastatin Calcium (Atorvastatin Calcium 10 Mg Tablet) 10 mg PO BEDTIME [facility] Buprenorphine/Naloxone (Buprenorphine/Naloxone 8/2 Mg Film) 1 film BUCCAL BID [facility] Last Admin: 07/18/23 08:50 Dose: 1 film Documented By: HEBERT Buspirone HCl (Buspirone Hcl 5 Mg Tablet) 5 mg PO BID [facility] Last Admin: 07/18/23 08:50 Dose: 5 mg Documented By: HEBERT Cyclobenzaprine HCl (Cyclobenzaprine Hcl 10 Mg Tablet) 10 mg PO TID PRN PRN Reason: Muscle Spasm Duloxetine HCl (Duloxetine Hcl 60 Mg Capsule.Dr) 60 mg PO DAILY [facility] Last Admin: 07/18/23 08:50 Dose: 60 mg Documented By: HEBERT Enoxaparin Sodium (Enoxaparin Sodium 40 Mg/0.4 Ml Syringe) 40 mg SUBCUT Q24H [facility] Last Admin: 07/17/23 20:48 Dose: 40 mg Documented By: KATIUSKA Finasteride (Finasteride 5 Mg Tablet) 5 mg PO DAILY [facility] Last Admin: 07/18/23 09:02 Dose: Not Given Documented By: HEBERT Non-Admin Reason: See Note Gabapentin (Gabapentin 400 Mg Capsule) 1,200 mg PO TID [facility] Last Admin: 07/18/23 09:02 Dose: Not Given Documented By: HEBERT Non-Admin Reason: See Note Glucose (Glucose Gel 15 Gm Gel..Gram.) 15 gm PO Q15M PRN; Protocol PRN Reason: per Hypoglycemia Standing Ord. Hydroxyzine HCl (Hydroxyzine Hcl 25 Mg Tablet) 25 mg PO BEDTIME [facility] Last Admin: 07/17/23 22:16 Dose: 25 mg Documented By: MILES Dextrose (D10) 250 mls @ 750 mls/hr IV Q15M PRN; Protocol PRN Reason: per Hypoglycemia Standing Ord. Insulin Human Lispro (Insulin Lispro 100 Unit/Ml 3 Ml Vial) 0 unit SUBCUT QIDACHS [facility]; Protocol Last Admin: 07/18/23 12:08 Dose: 6 unit Documented By: MIGUELINA Melatonin (Melatonin 3 Mg Tablet) 6 mg PO BEDTIME PRN PRN Reason: Insomnia Methylprednisolone Sodium Succinate (Methylprednisolone Sod Succ 40 Mg/Ml Vial) 40 mg IVPUSH Q12H [facility] Last Admin: 07/18/23 08:50 Dose: 40 mg Documented By: HEBERT Metoprolol Succinate (Metoprolol Succinate Er 25 Mg Tab.Er.24h) 25 mg PO BEDTIME [facility]; Protocol Multivitamins/Vitamin C (Multivitamin Tablet) 1 tab PO DAILY [facility] Last Admin: 07/18/23 09:02 Dose: Not Given Documented By: HEBERT Non-Admin Reason: See Note Non-Formulary Medication (Testosterone) 2 packet TRANSDERMA DAILY [facility] Omeprazole (Omeprazole 40 Mg Capsule.Dr) 40 mg PO DAILY@0630 [facility] Last Admin: 07/18/23 06:18 Dose: 40 mg Documented By: MILLIE Ondansetron HCl (Ondansetron Hcl 4 Mg/2 Ml Vial) 4 mg IVPUSH Q8H PRN PRN Reason: Nausea and Vomiting Last Admin: 07/18/23 12:16 Dose: 4 mg Documented By: MIGUELINA Pharmacy Consult (Consult Rx Etoh Phenob Im/Po) 1 each MISCELLANE ONCE PRN; Protocol PRN Reason: Consult order Phenobarbital (Phenobarbital 15 Mg Tablet) 45 mg PO BID [facility]; Protocol Stop: 07/19/23 21:01 Last Admin: 07/18/23 08:51 Dose: 45 mg Documented By: HEBERT Phenobarbital (Phenobarbital 30 Mg Tablet) 30 mg PO BID [facility]; Protocol Stop: 07/21/23 21:01 Phenobarbital (Phenobarbital 15 Mg Tablet) 15 mg PO DAILY [facility]; Protocol Stop: 07/23/23 09:01 Senna/Docusate Sodium (Sennosides/Docusate Sodium Tablet) 2 tab PO BEDTIME [facility] Sodium Chloride (0.9 % Sodium Chloride Flush 3 Ml Syringe) 3 ml IVFLUSH QSHIFT [facility] Last Admin: 07/18/23 09:01 Dose: 3 ml Documented By: HEBERT Tamsulosin HCl (Tamsulosin Hcl 0.4 Mg Capsule) 0.8 mg PO BEDTIME [facility] Thiamine HCl (Thiamine Hcl 100 Mg Tablet) 100 mg PO DAILY [facility] Last Admin: 07/18/23 09:03 Dose: Not Given Documented By: HEBERT Non-Admin Reason: See Note Trazodone HCl (Trazodone Hcl 100 Mg Tablet) 300 mg PO BEDTIME [facility] Labs 07/18/23 06:02 07/18/23 06:02 Labs: Laboratory Results - last 24 hr 07/17/23 07/17/23 07/17/23 15:34 16:53 16:55 MCV 88.5 MCH 30.8 MCHC 34.8 RDW 14.4 Plt Count 208 D MPV 10.0 Immature Gran % (Auto) 0.3 Neut % (Auto) 53.3 Lymph % (Auto) 35.3 Wilkin % (Auto) 9.1 Eos % (Auto) 0.9 Baso % (Auto) 1.1 Lymph # (Auto) 2.8 Wilkin # (Auto) 0.7 Eos # (Auto) 0.1 Baso # (Auto) 0.1 Abs Immat Gran (auto) 0.02 Absolute Neuts (auto) 4.2 Absolute Nucleated RBC 0.000 Nucleated RBC % (auto) 0.0 Smear Tech's Comments Anion Gap 16 Estim Creat Clear Calc 106.6 Estimated GFR > 60 POC Glucose Random Glucose 126 H Calcium 8.8 D Total Bilirubin 0.5 AST 25 ALT 21 Alkaline Phosphatase 67 Troponin I High Sens 2.8 B-Natriuretic Peptide Cancelled Total Protein 7.6 Albumin 4.2 Lipase 15 Urine Color Yellow Urine Appearance Clear Urine pH 6.0 Ur Specific Buckner <= 1.005 Urine Protein Negative Urine Glucose (UA) Negative Urine Ketones Negative Urine Blood Negative Urine Nitrite Negative Ur Leukocyte Esterase Negative Urine Opiates Screen Not Detected Ur Buprenorphine Scrn Positive H Ur Oxycodone Screen Not Detected Urine Methadone Screen Not Detected Urine Fentanyl Screen Not Detected Ur Barbiturates Screen Not Detected Ur Phencyclidine Scrn Not Detected Ur Amphetamines Screen Not Detected U Benzodiazepines Scrn Not Detected Urine Cocaine Screen Not Detected U Marijuana (THC) Screen Not Detected Ethyl Alcohol 134 07/17/23 07/18/23 07/18/23 21:06 06:02 07:40 MCV 90.5 MCH 30.4 MCHC 33.6 RDW 14.5 Plt Count 207 MPV 10.7 Immature Gran % (Auto) 0.4 Neut % (Auto) 93.0 H Lymph % (Auto) 4.3 L Wilkin % (Auto) 1.6 L Eos % (Auto) 0.0 Baso % (Auto) 0.7 Lymph # (Auto) 0.5 L Wilkin # (Auto) 0.2 Eos # (Auto) 0.0 Baso # (Auto) 0.1 Abs Immat Gran (auto) 0.04 H Absolute Neuts (auto) 10.0 H Absolute Nucleated RBC 0.000 Nucleated RBC % (auto) 0.0 Smear Tech's Comments VERIFIED Anion Gap 17 Estim Creat Clear Calc 105.8 Estimated GFR > 60 POC Glucose 105 156 H Random Glucose 152 H Calcium 9.3 Total Bilirubin AST ALT Alkaline Phosphatase Troponin I High Sens B-Natriuretic Peptide Total Protein Albumin Lipase Urine Color Urine Appearance Urine pH Ur Specific Buckner Urine Protein Urine Glucose (UA) Urine Ketones Urine Blood Urine Nitrite Ur Leukocyte Esterase Urine Opiates Screen Ur Buprenorphine Scrn Ur Oxycodone Screen Urine Methadone Screen Urine Fentanyl Screen Ur Barbiturates Screen Ur Phencyclidine Scrn Ur Amphetamines Screen U Benzodiazepines Scrn Urine Cocaine Screen U Marijuana (THC) Screen Ethyl Alcohol 07/18/23 11:25 MCV MCH MCHC RDW Plt Count MPV Immature Gran % (Auto) Neut % (Auto) Lymph % (Auto) Wilkin % (Auto) Eos % (Auto) Baso % (Auto) Lymph # (Auto) Wilkin # (Auto) Eos # (Auto) Baso # (Auto) Abs Immat Gran (auto) Absolute Neuts (auto) Absolute Nucleated RBC Nucleated RBC % (auto) Smear Tech's Comments Anion Gap Estim Creat Clear Calc Estimated GFR POC Glucose 283 H Random Glucose Calcium Total Bilirubin AST ALT Alkaline Phosphatase Troponin I High Sens B-Natriuretic Peptide Total Protein Albumin Lipase Urine Color Urine Appearance Urine pH Ur Specific Buckner Urine Protein Urine Glucose (UA) Urine Ketones Urine Blood Urine Nitrite Ur Leukocyte Esterase Urine Opiates Screen Ur Buprenorphine Scrn Ur Oxycodone Screen Urine Methadone Screen Urine Fentanyl Screen Ur Barbiturates Screen Ur Phencyclidine Scrn Ur Amphetamines Screen U Benzodiazepines Scrn Urine Cocaine Screen U Marijuana (THC) Screen Ethyl Alcohol Assessment and Plan (1) Acute hypoxemic respiratory failure: Status: Acute (2) Alcohol withdrawal syndrome: Status: Acute Plan 62-year-old male with pertinent history of alcohol use disorder with history of alcohol withdrawal, [id number] diabetes mellitus, mood disorder, BPH, tobacco use disorder, essential hypertension, mixed hyperlipidemia, opiates use disorder on Suboxone, chronic pain who presents to the emergency department for concerns of alcohol withdrawal. #. Alcohol abuse/withdrawal: History of alcohol withdrawal seizures, noted to have CIWA score > 20 Continue phenobarb protocol/additional phenobarb dose and IV Ativan 2 mg x 1 given, monitor CIWA closely, place on seizure precautions Continue folic acid/thiamine and follow addiction consult in . #. Acute hypoxemic respiratory failure due to exacerbation of obstructive lung disease. Continue steroids, scheduled and p.r.n. DuoNebs will change to q.i.d., Wean oxygen as tolerated not on home oxygen. #. Tachycardia and tachypnea likely due to alcohol withdrawal and COPD exacerbation, patient skipped his metoprolol last night , placed on environmental monitoring specialist give 1 time dose of metoprolol follow clinical course #. Alcoholic gastritis: Continue PPI add Maalox #. Bji-aijzpgf-izzgguxcf diabetes mellitus: Elevated blood sugars likely due to steroids, metformin on hold, continue insulin sliding scale and monitor point of care. #. Essential hypertension: Continue home medication metoprolol and follow BP #. Mixed hyperlipidemia: Continue Lipitor. #. Mood disorder: Continue home medications. #. BPH: On finasteride and Flomax. #. Chronic pain continue home medication gabapentin and duloxetine # opiate use disorder on Suboxone #. Tobacco use disorder: Counseled regarding cessation. Declined nicotine patch DVT prophylaxis: Lovenox Full code Patient will require continued inpatient hospitalization for management of alcohol withdrawal and acute COPD exacerbation that can not be done in less acute setting. Quality Stroke Does the patient have a stroke diagnosis?: No VTE Prior VTE?: No VTE Risk Level:: Medical - moderate - high VTE Device Contraindication: Treatment Not Indicated VTE Drug Contraindication: N/A - Med Ordered
[2023-07-18] MEDS: LORazepam 2 MG/ML VIAL IVPUSH (14:14)
[2023-07-18] MEDS: Gabapentin 400 MG CAPSULE 1200 MG PO ×2 (14:15→20:19)
--- NOTE | 2023-07-18 14:23 | PC.NURSE ---
Fall risk safety measures re-discussed with patient. Education provided. Patient refusing all alarms, supervision in bathroom, and camera in room. Agreeable to seizure pads. Seizure pads remain in place.
[2023-07-18 15:59] LABS: Glucose, Whole Blood 233 mg/dL (60-115)
--- NOTE | 2023-07-18 16:20 | MHC.CM.PN ---
PT REPORTS HE LIVES ALONE AND IS INDEPENDENT WITH CARE PT HAS NO DME AND NO SERVICES HE COMPLETED A HCP TODAY NAMING HIS SISTER HIS AGENT PCP: PEPITO OLIVARES AT [facility] IMM AND RIGHTS DELIVERED DCP: HOME NO SERVICES VIA PRIVATE TRANSPORT
--- NOTE | 2023-07-18 18:40 | PC.NURSE ---
Approximately 1705- Patient found in room without IV access. Dr. Feldman notified of IV access loss.
[2023-07-18] MEDS: LORazepam 2 MG/ML VIAL IM (19:09)
--- NOTE | 2023-07-18 20:01 | W.PM.CCCN ---
History of Present Illness Data of Consult Service Date: 07/18/23 Requesting physician: Torsten Ennis Primary Care Provider: Estela Gupta MD [facility] Reason for consult: Alcohol withrawel Mr. Tavera is a 62-year-old male with history of alcohol use disorder with alcohol withdrawal, opiate use disorder on Suboxone, tobacco use disorder, IDDM, mood disorder, BPH, essential hypertension, hyperlipidemia, and chronic pain ? He presented to the emergency room with anxiety, tremors, nausea and abdominal discomfort that began after his last drink a few hours prior to arrival. He drinks approximately 20-30 beers daily. He was admitted for management of alcohol withdrawal?syndrome and acute hypoxemic respiratory failure. A consult was requested for level of care evaluation due to increasing? agitation, confusion, anxiety and impulsivity secondary to alcohol withdrawal requiring several doses of ativan and an additional dose of phenobarbital beyond the usual phenobarbital protocol.? On my exam, the patient was awake, alert, oriented to person, place and situation, but appeared anxious. His respiratory status stable on room air with O2 sat 94%, RR 18. His systolic blood pressure in 140s, HR 120's. He was due for his next dose of phenobarb at the time of my exam. At this time, he does not require additional sedation or airway management necessitating a transfer to the ICU. A bedside sitter might help with impulsivity, and provide redirection as needed. The case was discussed with Dr Singh who will monitor the patient on?the medical floor and notify for re-evaluation if the patient's condition changes. Patient's care was discussed in detail with Dr. Garner.? She is aware of all the above as well as the plan of care for this patient. Review of Systems Constitutional: Constitutional: Reports as per HPI Neurologic: Denies Abnormal speech present [facility] Past Medical History Medical History Alcohol use disorder, severe, dependence Alcohol abuse Hyperlipidemia Depression with anxiety Diabetes Hypertension Social History Social History Household Members: None Household Members Other:: Self with a dog{ Parker} Housing: House Do you presently have visiting nurse or other home services: No Alcohol intake: current Alcohol intake frequency: 3 or more drinks per day Alcohol type: beer Comment: Refused staff remain in bathroom with him. Patient Tobacco Use Status: Former Tobacco user Quit Date: 2014 Second Hand Smoke Exposure: No Substance Use Type: Marijuana service: Yes Meds Allergies Allergy/AdvReac Type Severity Reaction Status Date / Time No Known Allergies Allergy Verified 07/17/23 15:19 Active Medications: Current Medications Acetaminophen (Acetaminophen 325 Mg Tablet) 650 mg PO Q6H PRN PRN Reason: Pain, Mild (Pain Scale 1-3) Acyclovir (Acyclovir 200 Mg Capsule) 400 mg PO BID [facility] Last Admin: 07/18/23 09:02 Dose: Not Given Al Hydroxide/Mg Hydroxide (Magnesium Hydrox/Alum Hydrox 30 Ml Oral.Susp) 30 ml PO Q4H PRN PRN Reason: heart burn Albuterol/Ipratropium (Albuterol/Iprat 2.5/0.5mg 3 Ml Ampul.Neb) 3 ml INHALE Q4H PRN PRN Reason: Wheezing Albuterol/Ipratropium (Albuterol/Iprat 2.5/0.5mg 3 Ml Ampul.Neb) 3 ml INHALE RQ6H WHILE AWAKE [facility] Atorvastatin Calcium (Atorvastatin Calcium 10 Mg Tablet) 10 mg PO BEDTIME [facility] Buprenorphine/Naloxone (Buprenorphine/Naloxone 8/2 Mg Film) 1 film BUCCAL BID [facility] Last Admin: 07/18/23 08:50 Dose: 1 film Buspirone HCl (Buspirone Hcl 5 Mg Tablet) 5 mg PO BID [facility] Last Admin: 07/18/23 08:50 Dose: 5 mg Cyclobenzaprine HCl (Cyclobenzaprine Hcl 10 Mg Tablet) 10 mg PO TID PRN PRN Reason: Muscle Spasm Duloxetine HCl (Duloxetine Hcl 60 Mg Capsule.Dr) 60 mg PO DAILY [facility] Last Admin: 07/18/23 08:50 Dose: 60 mg Enoxaparin Sodium (Enoxaparin Sodium 40 Mg/0.4 Ml Syringe) 40 mg SUBCUT Q24H [facility] Last Admin: 07/17/23 20:48 Dose: 40 mg Finasteride (Finasteride 5 Mg Tablet) 5 mg PO DAILY [facility] Last Admin: 07/18/23 09:02 Dose: Not Given Gabapentin (Gabapentin 400 Mg Capsule) 1,200 mg PO TID [facility] Last Admin: 07/18/23 14:15 Dose: 1,200 mg Glucose (Glucose Gel 15 Gm Gel..Gram.) 15 gm PO Q15M PRN; Protocol PRN Reason: per Hypoglycemia Standing Ord. Hydroxyzine HCl (Hydroxyzine Hcl 25 Mg Tablet) 25 mg PO BEDTIME [facility] Last Admin: 07/17/23 22:16 Dose: 25 mg Dextrose (D10) 250 mls @ 750 mls/hr IV Q15M PRN; Protocol PRN Reason: per Hypoglycemia Standing Ord. Insulin Human Lispro (Insulin Lispro 100 Unit/Ml 3 Ml Vial) 0 unit SUBCUT QIDACHS [facility]; Protocol Last Admin: 07/18/23 17:01 Dose: 8 unit Melatonin (Melatonin 3 Mg Tablet) 6 mg PO BEDTIME PRN PRN Reason: Insomnia Methylprednisolone Sodium Succinate (Methylprednisolone Sod Succ 40 Mg/Ml Vial) 40 mg IVPUSH Q24H [facility] Metoprolol Succinate (Metoprolol Succinate Er 25 Mg Tab.Er.24h) 25 mg PO BEDTIME [facility]; Protocol Multivitamins/Vitamin C (Multivitamin Tablet) 1 tab PO DAILY [facility] Last Admin: 07/18/23 09:02 Dose: Not Given Non-Formulary Medication (Testosterone) 2 packet TRANSDERMA DAILY [facility] Omeprazole (Omeprazole 40 Mg Capsule.Dr) 40 mg PO DAILY@0630 [facility] Last Admin: 07/18/23 06:18 Dose: 40 mg Ondansetron HCl (Ondansetron Hcl 4 Mg/2 Ml Vial) 4 mg IVPUSH Q8H PRN PRN Reason: Nausea and Vomiting Last Admin: 07/18/23 12:16 Dose: 4 mg Pharmacy Consult (Consult Rx Etoh Phenob Im/Po) 1 each MISCELLANE ONCE PRN; Protocol PRN Reason: Consult order Phenobarbital (Phenobarbital 15 Mg Tablet) 45 mg PO BID [facility]; Protocol Stop: 07/19/23 21:01 Last Admin: 07/18/23 08:51 Dose: 45 mg Phenobarbital (Phenobarbital 30 Mg Tablet) 30 mg PO BID [facility]; Protocol Stop: 07/21/23 21:01 Phenobarbital (Phenobarbital 15 Mg Tablet) 15 mg PO DAILY [facility]; Protocol Stop: 07/23/23 09:01 Senna/Docusate Sodium (Sennosides/Docusate Sodium Tablet) 2 tab PO BEDTIME [facility] Sodium Chloride (0.9 % Sodium Chloride Flush 3 Ml Syringe) 3 ml IVFLUSH QSHIFT [facility] Last Admin: 07/18/23 17:06 Dose: Not Given Tamsulosin HCl (Tamsulosin Hcl 0.4 Mg Capsule) 0.8 mg PO BEDTIME [facility] Thiamine HCl (Thiamine Hcl 100 Mg Tablet) 100 mg PO DAILY [facility] Last Admin: 07/18/23 09:03 Dose: Not Given Trazodone HCl (Trazodone Hcl 100 Mg Tablet) 300 mg PO BEDTIME [facility] Home Medications ?Medication ?Instructions ?Recorded ?Confirmed ?Last Taken ?Type acyclovir 400 mg tablet 400 mg PO BID 11/21/22 07/17/23 07/17/23 History atorvastatin 20 mg tablet 10 mg PO BEDTIME 11/21/22 07/17/23 07/16/23 History buprenorphine 8 mg-naloxone 2 mg 1 film buccal BID 11/21/22 07/17/23 07/17/23 History sublingual film (Suboxone) buspirone 5 mg tablet 5 mg PO BID 11/21/22 07/17/23 07/17/23 History finasteride 5 mg tablet 5 mg PO DAILY 11/21/22 07/17/23 07/17/23 History gabapentin 400 mg capsule 1,200 mg PO TID Anxiety/Pain 11/21/22 07/17/23 07/17/23 History hydroxyzine HCl 25 mg tablet 25 mg PO BEDTIME 11/21/22 07/17/23 07/16/23 History melatonin 5 mg tablet 5 mg PO BEDTIME 11/21/22 07/17/23 07/17/23 History metformin 1,000 mg tablet 1,000 mg PO DAILY 11/21/22 07/17/23 07/17/23 History metoprolol succinate 25 mg capsule 25 mg PO BEDTIME 11/21/22 07/17/23 07/16/23 History sprinkle, ext. release 24 hr multivitamin 1 tab PO DAILY 11/21/22 07/17/23 07/17/23 History sennosides 8.6 mg-docusate sodium 2 tab-cap PO BEDTIME Constipation 11/21/22 07/17/23 07/16/23 History 50 mg tablet tamsulosin 0.4 mg capsule 0.8 mg PO BEDTIME 11/21/22 07/17/23 07/16/23 History trazodone 100 mg tablet 300 mg PO BEDTIME 11/21/22 07/17/23 07/16/23 History cyclobenzaprine 10 mg tablet 10 mg PO TID PRN Muscle Spasm 01/31/23 07/17/23 Unknown History duloxetine 60 mg capsule,delayed 60 mg PO DAILY 07/17/23 07/17/23 07/17/23 History release sprinkle testosterone 1.62 % (20.25 mg/1.25 2 packet transdermal DAILY 07/17/23 07/17/23 07/17/23 History gram) transdermal gel packet vitamin B complex 1 tab PO DAILY 07/17/23 07/17/23 07/17/23 History Physical Exam Vital Signs: Vital Signs: Last Vital Signs Temp 97.6 F 07/18/23 18:53 Pulse 123 H 07/18/23 18:53 Resp 18 07/18/23 18:53 BP 142/68 H 07/18/23 18:53 Pulse Ox 94 07/18/23 18:53 O2 Del Method Room Air 07/18/23 18:53 O2 Flow Rate 2 07/18/23 03:11 BMI result Body Mass Index 33.6 Const: General: cooperative, no acute distress, alert and anxious Orientation/consciousness: oriented to person and oriented to place Resp: Effort & Inspection: normal respiratory effort, not labored and no respiratory distress Cardio: Rate: tachycardic Neuro: General: oriented to person and oriented to place Speech: No Abnormal speech present Psych: Speech and movement: Clear speech present and Restless speech present Affect: Anxious affect present Attitude: cooperative Results Labs 07/18/23 06:02 07/18/23 06:02 Labs: Short CBC 07/18/23 Range/Units 06:02 WBC 10.7 (4.8-10.8) X10*3/uL Hgb 15.4 (14.0-18.0) g/dl Hct 45.8 (42.0-52.0) % Plt Count 207 (160-400) X10*3/uL BMP 07/18/23 06:02 Sodium 137 Potassium 4.6 Chloride 101 Carbon Dioxide 24 BUN 15 Creatinine 0.86 Calcium 9.3 Assessment and Plan (1) Alcohol withdrawal syndrome: Qualifiers: Complication of substance-induced condition: uncomplicated Qualified Code(s): F10.930 - Alcohol use, unspecified with withdrawal, uncomplicated Status: Acute
[2023-07-18] MEDS: Enoxaparin Sodium 40 MG/0.4 ML SYRINGE SUBCUT (20:18)
[2023-07-18] MEDS: Sennosides/Docusate Sodium TABLET 2 TAB PO (20:18)
[2023-07-18] MEDS: hydrOXYzine HCL 25 MG TABLET PO (20:18)
[2023-07-18] MEDS: Acyclovir 200 MG CAPSULE 400 MG PO (20:18)
[2023-07-18] MEDS: Metoprolol Succinate ER 25 MG TAB.ER.24H PO (20:19)
[2023-07-18] MEDS: Tamsulosin HCL 0.4 MG CAPSULE 0.8 MG PO (20:19)
[2023-07-18] MEDS: Atorvastatin Calcium 10 MG TABLET PO (20:21)
[2023-07-18] MEDS: traZODone HCL 100 MG TABLET 300 MG PO (20:21)
[2023-07-18 20:37] LABS: Glucose, Whole Blood 186 mg/dL (60-115)
--- NOTE | 2023-07-18 23:09 | PC.NURSE ---
ICU HUMAN RESOURCES OPERATIONS DIRECTOR came eval for HR (120s - 149s), safety issues, CIWA score has been high. The hospitalist came to see the pt and discuss with ICU HUMAN RESOURCES OPERATIONS DIRECTOR. ordered 1:1 sitter for safety. pt AO x1. He told me he's in [place] w/abd pain. couldn't give me an answer for date and time. he wants to go home try to leave. he was very disoriented walked out the room walking around looking for snacks. he's going to other pt's room. at this time he has 1:1 sitter and camera in place. provided what he needed it. will cont. monitor.
[2023-07-19] VITALS (7 sets, daily range): BP systolic 129–152; BP diastolic 71–95; PULSE 103–124; RESP 18–20; TEMP 35.9–36.6; O2SAT 91–98
[2023-07-19] MEDS: Omeprazole 40 MG CAPSULE.DR PO (06:03)
[2023-07-19 07:33] LABS: Glucose, Whole Blood 182 mg/dL (60-115)
[2023-07-19] MEDS: Albuterol/Iprat 2.5/0.5MG 3 ML AMPUL.NEB INHALE (07:51)
[2023-07-19] MEDS: Insulin Lispro 100 UNIT/ML 3 ML VIAL SUBCUT ×4 (08:35→20:56)
[2023-07-19] MEDS: DULoxetine HCl 60 MG CAPSULE.DR PO (09:03)
[2023-07-19] MEDS: 0.9 % Sodium Chloride Flush 3 ML SYRINGE IVFLUSH ×2 (09:03→20:45)
[2023-07-19] MEDS: busPIRone HCl 5 MG TABLET PO ×2 (09:04→20:44)
[2023-07-19] MEDS: Multivitamin TABLET 1 TAB PO (09:04)
[2023-07-19] MEDS: Acyclovir 200 MG CAPSULE 400 MG PO ×2 (09:04→20:42)
[2023-07-19] MEDS: PHENobarbitaL 15 MG TABLET 45 MG PO ×2 (09:04→20:44)
[2023-07-19] MEDS: Finasteride 5 MG TABLET PO (09:04)
[2023-07-19] MEDS: Thiamine HCL 100 MG TABLET PO (09:04)
[2023-07-19] MEDS: Buprenorphine/Naloxone 8/2 mg FILM 1 FILM BUCCAL ×2 (09:04→20:42)
[2023-07-19] MEDS: Gabapentin 400 MG CAPSULE 1200 MG PO ×2 (09:04→20:44)
[2023-07-19] MEDS: methylPREDNISolone Sod Succ 40 MG/ML VIAL IVPUSH (09:04)
--- NOTE | 2023-07-19 11:08 | HO.PM.IMPN ---
Subjective Subjective Date of Service: 07/19/23 Interval History: Feeling better this morning resting comfortably, tolerated diet complaining of mild shakiness, mild nausea, denies palpitation, denies sweating, no confusion no visual symptoms, no agitation or hallucination noted. Review of Systems All other system reviewed and negative. Physical Exam Vital Signs: Vital Signs: Last Vital Signs Temp 97.8 F 07/19/23 07:28 Pulse 108 H 07/19/23 07:54 Resp 18 07/19/23 07:54 BP 140/95 H 07/19/23 07:28 Pulse Ox 94 07/19/23 07:28 O2 Del Method Room Air 07/19/23 07:28 O2 Flow Rate 2 07/18/23 03:11 BMI result Body Mass Index 33.6 Const: Other: Gen: Awake alert x3, in no acute di stress HEENT: scle ra anicteric, mois t mucus membranes Neck: supple Lungs : Clear to auscul tation , no tachyp aixa, no use of acc essory muscle Hear t: tachycardic, no murmurs Abd: soft , non-tender, non- distended, bowel s ounds audible Ext: no edema Skin: wa rm/well-perfused N euro: alert and or iented x3, less sh akiness Psych: An xious Objective Data Active Medications Acetaminophen (Acetaminophen 325 Mg Tablet) 650 mg PO Q6H PRN PRN Reason: Pain, Mild (Pain Scale 1-3) Acyclovir (Acyclovir 200 Mg Capsule) 400 mg PO BID [facility] Last Admin: 07/19/23 09:04 Dose: 400 mg Documented By: HEBERT Al Hydroxide/Mg Hydroxide (Magnesium Hydrox/Alum Hydrox 30 Ml Oral.Susp) 30 ml PO Q4H PRN PRN Reason: heart burn Albuterol/Ipratropium (Albuterol/Iprat 2.5/0.5mg 3 Ml Ampul.Neb) 3 ml INHALE Q4H PRN PRN Reason: Wheezing Albuterol/Ipratropium (Albuterol/Iprat 2.5/0.5mg 3 Ml Ampul.Neb) 3 ml INHALE RQ6H WHILE AWAKE [facility] Last Admin: 07/19/23 07:51 Dose: 3 ml Documented By: HO.BATTISM Atorvastatin Calcium (Atorvastatin Calcium 10 Mg Tablet) 10 mg PO BEDTIME [facility] Last Admin: 07/18/23 20:21 Dose: 10 mg Documented By: MILLIE Buprenorphine/Naloxone (Buprenorphine/Naloxone 8/2 Mg Film) 1 film BUCCAL BID [facility] Last Admin: 07/19/23 09:04 Dose: 1 film Documented By: HEBERT Buspirone HCl (Buspirone Hcl 5 Mg Tablet) 5 mg PO BID [facility] Last Admin: 07/19/23 09:04 Dose: 5 mg Documented By: HEBRET Cyclobenzaprine HCl (Cyclobenzaprine Hcl 10 Mg Tablet) 10 mg PO TID PRN PRN Reason: Muscle Spasm Duloxetine HCl (Duloxetine Hcl 60 Mg Capsule.Dr) 60 mg PO DAILY [facility] Last Admin: 07/19/23 09:03 Dose: 60 mg Documented By: HEBERT Enoxaparin Sodium (Enoxaparin Sodium 40 Mg/0.4 Ml Syringe) 40 mg SUBCUT Q24H [facility] Last Admin: 07/18/23 20:18 Dose: 40 mg Documented By: MILLIE Finasteride (Finasteride 5 Mg Tablet) 5 mg PO DAILY [facility] Last Admin: 07/19/23 09:04 Dose: 5 mg Documented By: HEBERT Gabapentin (Gabapentin 400 Mg Capsule) 1,200 mg PO TID [facility] Last Admin: 07/19/23 09:04 Dose: 1,200 mg Documented By: HEBERT Glucose (Glucose Gel 15 Gm Gel..Gram.) 15 gm PO Q15M PRN; Protocol PRN Reason: per Hypoglycemia Standing Ord. Hydroxyzine HCl (Hydroxyzine Hcl 25 Mg Tablet) 25 mg PO BEDTIME [facility] Last Admin: 07/18/23 20:18 Dose: 25 mg Documented By: MILLIE Dextrose (D10) 250 mls @ 750 mls/hr IV Q15M PRN; Protocol PRN Reason: per Hypoglycemia Standing Ord. Insulin Human Lispro (Insulin Lispro 100 Unit/Ml 3 Ml Vial) 0 unit SUBCUT QIDACHS [facility]; Protocol Last Admin: 07/19/23 08:35 Dose: 4 unit Documented By: LORIE Melatonin (Melatonin 3 Mg Tablet) 6 mg PO BEDTIME PRN PRN Reason: Insomnia Methylprednisolone Sodium Succinate (Methylprednisolone Sod Succ 40 Mg/Ml Vial) 40 mg IVPUSH Q24H [facility] Last Admin: 07/19/23 09:04 Dose: 40 mg Documented By: HEBERT Metoprolol Succinate (Metoprolol Succinate Er 25 Mg Tab.Er.24h) 25 mg PO BEDTIME [facility]; Protocol Last Admin: 07/18/23 20:19 Dose: 25 mg Documented By: MILLIE Multivitamins/Vitamin C (Multivitamin Tablet) 1 tab PO DAILY [facility] Last Admin: 07/19/23 09:04 Dose: 1 tab Documented By: HEBERT Non-Formulary Medication (Testosterone) 2 packet TRANSDERMA DAILY [facility] Omeprazole (Omeprazole 40 Mg Capsule.Dr) 40 mg PO DAILY@0630 [facility] Last Admin: 07/19/23 06:03 Dose: 40 mg Documented By: MILLIE Ondansetron HCl (Ondansetron Hcl 4 Mg/2 Ml Vial) 4 mg IVPUSH Q8H PRN PRN Reason: Nausea and Vomiting Last Admin: 07/18/23 12:16 Dose: 4 mg Documented By: MIGUELINA Pharmacy Consult (Consult Rx Etoh Phenob Im/Po) 1 each MISCELLANE ONCE PRN; Protocol PRN Reason: Consult order Phenobarbital (Phenobarbital 15 Mg Tablet) 45 mg PO BID [facility]; Protocol Stop: 07/19/23 21:01 Last Admin: 07/19/23 09:04 Dose: 45 mg Documented By: HEBERT Phenobarbital (Phenobarbital 30 Mg Tablet) 30 mg PO BID [facility]; Protocol Stop: 07/21/23 21:01 Phenobarbital (Phenobarbital 15 Mg Tablet) 15 mg PO DAILY [facility]; Protocol Stop: 07/23/23 09:01 Senna/Docusate Sodium (Sennosides/Docusate Sodium Tablet) 2 tab PO BEDTIME [facility] Last Admin: 07/18/23 20:18 Dose: 2 tab Documented By: MILLIE Sodium Chloride (0.9 % Sodium Chloride Flush 3 Ml Syringe) 3 ml IVFLUSH QSHIFT [facility] Last Admin: 07/19/23 09:03 Dose: 3 ml Documented By: HEBERT Tamsulosin HCl (Tamsulosin Hcl 0.4 Mg Capsule) 0.8 mg PO BEDTIME [facility] Last Admin: 07/18/23 20:19 Dose: 0.8 mg Documented By: MILLIE Thiamine HCl (Thiamine Hcl 100 Mg Tablet) 100 mg PO DAILY [facility] Last Admin: 07/19/23 09:04 Dose: 100 mg Documented By: HEBERT Trazodone HCl (Trazodone Hcl 100 Mg Tablet) 300 mg PO BEDTIME [facility] Last Admin: 07/18/23 20:21 Dose: 300 mg Documented By: MILLIE Labs 07/18/23 06:02 07/18/23 06:02 Labs: Laboratory Results - last 24 hr 07/18/23 07/18/23 07/18/23 11:25 15:52 20:17 POC Glucose 283 H 233 H 186 H 07/19/23 07:27 POC Glucose 182 H Assessment and Plan (1) Acute hypoxemic respiratory failure: Status: Acute (2) Alcohol withdrawal syndrome: Status: Acute Plan 62-year-old male with pertinent history of alcohol use disorder with history of alcohol withdrawal, [id number]-ypylqezlq diabetes mellitus, mood disorder, BPH, tobacco use disorder, essential hypertension, mixed hyperlipidemia, opiates use disorder on Suboxone, chronic pain who presents to the emergency department for concerns of alcohol withdrawal. #. Alcohol abuse/withdrawal: History of alcohol withdrawal seizures, noted to have CIWA score 12 Continue phenobarb protocol/as needed Ativan as needed, monitor CIWA closely, seizure precautions Continue folic acid/thiamine and follow addiction consult Patient evaluated by critical care team yesterday due to increasing agitation, confusion anxiety and impulsivity, patient did not qualify for ICU admission. #. Acute hypoxemic respiratory failure due to exacerbation of obstructive lung disease. Hypoxia resolved, no shortness of breath will DC scheduled DuoNeb, continue p.r.n. DuoNebs , DC IV steroids, follow clinical course #. Tachycardia and tachypnea likely due to alcohol withdrawal , improving. #. Alcoholic gastritis: Continue PPI and Maalox #. Ldg-ugoynxd-wyoucochz diabetes mellitus: Elevated blood sugars likely due to steroids, metformin on hold, continue insulin sliding scale and monitor point of care/steroids discontinued. #. Essential hypertension: Continue home medication metoprolol and follow BP #. Mixed hyperlipidemia: Continue Lipitor. #. Mood disorder: Continue home medications. #. BPH: On finasteride and Flomax. #. Chronic pain continue home medication gabapentin and duloxetine. # opiate use disorder on Suboxone #. Tobacco use disorder: Counseled regarding cessation. Declined nicotine patch DVT prophylaxis: Lovenox Full code Patient will require continued inpatient hospitalization for management of alcohol withdrawal requiring as needed IV Ativan, that can not be done in less acute setting. Quality Stroke Does the patient have a stroke diagnosis?: No VTE Prior VTE?: No VTE Risk Level:: Medical - moderate - high VTE Device Contraindication: Treatment Not Indicated VTE Drug Contraindication: N/A - Med Ordered
[2023-07-19 11:39] LABS: Glucose, Whole Blood 208 mg/dL (60-115)
--- NOTE | 2023-07-19 12:05 | MHC.CM.PN ---
Per MD rounds no dc today. Patient continues on the CIWA scale 12 . DP home self care vs community resources provided by the Recovery team. Patient will arrange transport home.
[2023-07-19] MEDS: LORazepam 2 MG/ML VIAL 1 MG IVPUSH ×2 (13:03→18:26)
--- NOTE | 2023-07-19 13:20 | PC.NURSE ---
1310- Patient gave verbal permission to update sister Hannah Humphrey on health status and care.
--- NOTE | 2023-07-19 15:00 | MHC.RECOVRN ---
Received Addiction Medicine consult for alcohol use. Chart reviewed, pt continues to score 20 on CIWA as of 1200 today with some disorientation. Consult to be completed when pt is more appropriate. Tash Yi APRN, aware.
[2023-07-19 16:56] LABS: Glucose, Whole Blood 182 mg/dL (60-115)
[2023-07-19] MEDS: Enoxaparin Sodium 40 MG/0.4 ML SYRINGE SUBCUT (19:40)
[2023-07-19] MEDS: Metoprolol Succinate ER 25 MG TAB.ER.24H PO (20:42)
[2023-07-19] MEDS: traZODone HCL 100 MG TABLET 300 MG PO (20:42)
[2023-07-19] MEDS: Tamsulosin HCL 0.4 MG CAPSULE 0.8 MG PO (20:44)
[2023-07-19] MEDS: Atorvastatin Calcium 10 MG TABLET PO (20:44)
[2023-07-19] MEDS: hydrOXYzine HCL 25 MG TABLET PO (20:44)
[2023-07-19] MEDS: Sennosides/Docusate Sodium TABLET 2 TAB PO (20:44)
[2023-07-19 20:45] LABS: Glucose, Whole Blood 190 mg/dL (60-115)
[2023-07-20] VITALS: BP 115/68; PULSE 116; RESP 18; TEMP 36.5; O2SAT 92
[2023-07-20 02:58] VITALS: BP 141/76; PULSE 92; RESP 16; TEMP 37.1; O2SAT 91
[2023-07-20] MEDS: Omeprazole 40 MG CAPSULE.DR PO (05:39)
[2023-07-20 07:28] LABS: Glucose, Whole Blood 125 mg/dL (60-115)
[2023-07-20 07:29] VITALS: BP 146/79; PULSE 95; RESP 18; TEMP 36.4; O2SAT 97
[2023-07-20] MEDS: PHENobarbitaL 30 MG TABLET PO ×2 (09:08→20:34)
[2023-07-20] MEDS: DULoxetine HCl 60 MG CAPSULE.DR PO (09:08)
[2023-07-20] MEDS: Acyclovir 200 MG CAPSULE 400 MG PO ×2 (09:08→20:34)
[2023-07-20] MEDS: busPIRone HCl 5 MG TABLET PO ×2 (09:09→20:34)
[2023-07-20] MEDS: Buprenorphine/Naloxone 8/2 mg FILM 1 FILM BUCCAL ×2 (09:09→20:35)
[2023-07-20] MEDS: Multivitamin TABLET 1 TAB PO (09:09)
[2023-07-20] MEDS: Gabapentin 400 MG CAPSULE 1200 MG PO ×3 (09:09→20:34)
[2023-07-20] MEDS: Thiamine HCL 100 MG TABLET PO (09:09)
[2023-07-20] MEDS: Finasteride 5 MG TABLET PO (09:09)
[2023-07-20] MEDS: 0.9 % Sodium Chloride Flush 3 ML SYRINGE IVFLUSH ×2 (09:11→14:58)
[2023-07-20 11:20] LABS: Glucose, Whole Blood 184 mg/dL (60-115)
[2023-07-20 11:34] VITALS: BP 138/90; PULSE 94; RESP 16; TEMP 36.5; O2SAT 94
[2023-07-20] MEDS: Insulin Lispro 100 UNIT/ML 3 ML VIAL SUBCUT ×2 (11:38→16:34)
--- NOTE | 2023-07-20 11:43 | P.PNIM_ITS ---
Subjective Subjective Date of Service: 07/20/23 Interval History: No seizures since admission. CIWA 4-6 today. Review of Systems Denies chest pain Denies shortness of breath Denies nausea vomiting diarrhea Denies fever chills Physical Exam 2 Vital Signs: Vital Signs: Last Vital Signs Temp 97.7 F 07/20/23 11:34 Pulse 94 07/20/23 11:34 Resp 16 07/20/23 11:34 BP 138/90 H 07/20/23 11:34 Pulse Ox 94 07/20/23 11:34 O2 Del Method Room Air 07/20/23 11:34 O2 Flow Rate 2 07/20/23 07:29 BMI result Body Mass Index 33.6 Const: Other: Awake alert oriented x3 no acute distress Resp: Other: Clear to auscultation bilaterally no rales rhonchi or wheezes Cardio: Other: No S4; positive S1-S2; no S3 murmurs rubs or gallops GI: Other: Soft nontender nondistended normoactive bowel sounds Neuro: Other: Cranial nerves 2-12 grossly intact as tested. Motor is 5/5 all extremities. Sensation is intact cognition appropriate gait steady Extrem: Other: No edema bilaterally Objective Data Active Medications Acetaminophen (Acetaminophen 325 Mg Tablet) 650 mg PO Q6H PRN PRN Reason: Pain, Mild (Pain Scale 1-3) Acyclovir (Acyclovir 200 Mg Capsule) 400 mg PO BID [facility] Last Admin: 07/20/23 09:08 Dose: 400 mg Documented By: GRETEL Al Hydroxide/Mg Hydroxide (Magnesium Hydrox/Alum Hydrox 30 Ml Oral.Susp) 30 ml PO Q4H PRN PRN Reason: heart burn Albuterol/Ipratropium (Albuterol/Iprat 2.5/0.5mg 3 Ml Ampul.Neb) 3 ml INHALE Q4H PRN PRN Reason: Wheezing Atorvastatin Calcium (Atorvastatin Calcium 10 Mg Tablet) 10 mg PO BEDTIME [facility] Last Admin: 07/19/23 20:44 Dose: 10 mg Documented By: MILLIE Buprenorphine/Naloxone (Buprenorphine/Naloxone 8/2 Mg Film) 1 film BUCCAL BID [facility] Last Admin: 07/20/23 09:09 Dose: 1 film Documented By: GRETEL Buspirone HCl (Buspirone Hcl 5 Mg Tablet) 5 mg PO BID [facility] Last Admin: 07/20/23 09:09 Dose: 5 mg Documented By: GRETEL Cyclobenzaprine HCl (Cyclobenzaprine Hcl 10 Mg Tablet) 10 mg PO TID PRN PRN Reason: Muscle Spasm Duloxetine HCl (Duloxetine Hcl 60 Mg Capsule.Dr) 60 mg PO DAILY [facility] Last Admin: 07/20/23 09:08 Dose: 60 mg Documented By: GRETEL Enoxaparin Sodium (Enoxaparin Sodium 40 Mg/0.4 Ml Syringe) 40 mg SUBCUT Q24H [facility] Last Admin: 07/19/23 19:40 Dose: 40 mg Documented By: MILLIE Finasteride (Finasteride 5 Mg Tablet) 5 mg PO DAILY [facility] Last Admin: 07/20/23 09:09 Dose: 5 mg Documented By: GRETEL Gabapentin (Gabapentin 400 Mg Capsule) 1,200 mg PO TID [facility] Last Admin: 07/20/23 09:09 Dose: 1,200 mg Documented By: GRETEL Glucose (Glucose Gel 15 Gm Gel..Gram.) 15 gm PO Q15M PRN; Protocol PRN Reason: per Hypoglycemia Standing Ord. Hydroxyzine HCl (Hydroxyzine Hcl 25 Mg Tablet) 25 mg PO BEDTIME [facility] Last Admin: 07/19/23 20:44 Dose: 25 mg Documented By: MILLIE Dextrose (D10) 250 mls @ 750 mls/hr IV Q15M PRN; Protocol PRN Reason: per Hypoglycemia Standing Ord. Insulin Human Lispro (Insulin Lispro 100 Unit/Ml 3 Ml Vial) 0 unit SUBCUT QIDACHS [facility]; Protocol Last Admin: 07/20/23 11:38 Dose: 4 unit Documented By: GRETEL Lorazepam (Lorazepam 2 Mg/Ml Vial) 1 mg IVPUSH Q6H PRN PRN Reason: anxiety/restlessness Stop: 07/21/23 12:26 Last Admin: 07/19/23 18:26 Dose: 1 mg Documented By: HEBERT Comments: Administered early per Dr. Torey Pedroza. Melatonin (Melatonin 3 Mg Tablet) 6 mg PO BEDTIME PRN PRN Reason: Insomnia Metoprolol Succinate (Metoprolol Succinate Er 25 Mg Tab.Er.24h) 25 mg PO BEDTIME [facility]; Protocol Last Admin: 07/19/23 20:42 Dose: 25 mg Documented By: MILLIE Multivitamins/Vitamin C (Multivitamin Tablet) 1 tab PO DAILY [facility] Last Admin: 07/20/23 09:09 Dose: 1 tab Documented By: GRETEL Non-Formulary Medication (Testosterone) 2 packet TRANSDERMA DAILY [facility] Omeprazole (Omeprazole 40 Mg Capsule.Dr) 40 mg PO DAILY@0630 [facility] Last Admin: 07/20/23 05:39 Dose: 40 mg Documented By: JEANNINE Ondansetron HCl (Ondansetron Hcl 4 Mg/2 Ml Vial) 4 mg IVPUSH Q8H PRN PRN Reason: Nausea and Vomiting Last Admin: 07/18/23 12:16 Dose: 4 mg Documented By: MIGUELINA Pharmacy Consult (Consult Rx Etoh Phenob Im/Po) 1 each MISCELLANE ONCE PRN; Protocol PRN Reason: Consult order Phenobarbital (Phenobarbital 30 Mg Tablet) 30 mg PO BID [facility]; Protocol Stop: 07/21/23 21:01 Last Admin: 07/20/23 09:08 Dose: 30 mg Documented By: GRETEL Phenobarbital (Phenobarbital 15 Mg Tablet) 15 mg PO DAILY [facility]; Protocol Stop: 07/23/23 09:01 Senna/Docusate Sodium (Sennosides/Docusate Sodium Tablet) 2 tab PO BEDTIME [facility] Last Admin: 07/19/23 20:44 Dose: 2 tab Documented By: MILLIE Sodium Chloride (0.9 % Sodium Chloride Flush 3 Ml Syringe) [facility] Last Admin: 07/20/23 09:11 Dose: 3 ml Documented By: GRETEL Tamsulosin HCl (Tamsulosin Hcl 0.4 Mg Capsule) 0.8 mg PO BEDTIME [facility] Last Admin: 07/19/23 20:44 Dose: 0.8 mg Documented By: MILLIE Thiamine HCl (Thiamine Hcl 100 Mg Tablet) 100 mg PO DAILY [facility] Last Admin: 07/20/23 09:09 Dose: 100 mg Documented By: GRETEL Trazodone HCl (Trazodone Hcl 100 Mg Tablet) 300 mg PO BEDTIME [facility] Last Admin: 07/19/23 20:42 Dose: 300 mg Documented By: MILLIE Labs 07/18/23 06:02 07/18/23 06:02 Labs: Laboratory Results - last 24 hr 07/19/23 07/19/23 07/20/23 16:48 20:41 07:07 POC Glucose 182 H 190 H 125 H 07/20/23 11:08 POC Glucose 184 H Assessment and Plan (1) Alcohol withdrawal syndrome: Status: Acute (2) Hypertension: Status: Acute (3) Diabetes: Status: Acute Plan 62-year-old male with pertinent history of alcohol use disorder with history of alcohol withdrawal, pqp-xfawcip-lqxpuhmge diabetes mellitus, mood disorder, BPH, tobacco use disorder, essential hypertension, mixed hyperlipidemia, opiates use disorder on Suboxone, chronic pain who presents to the emergency department for concerns of alcohol withdrawal. 1.Alcohol abuse/withdrawal: -phenobarb protocol/PRN Ativan as needed, monitor CIWA -folic acid/thiamine -Addiction Medicine consult 2.Acute hypoxemic respiratory failure due to exacerbation of obstructive lung disease. - resolved 3.Alcoholic gastritis -PPI -PRN maalox 4.Gfm-izloltd-eqvrwpqqy diabetes mellitus -acceptable control on current therapies -lispro correctional scale -adjust as indicated 5.Essential hypertension -acceptable control on current therapies -adjust as indicated Lovenox Full code Patient will require continued inpatient hospitalization for management of alcohol withdrawal requiring as needed IV Ativan, that can not be done in less acute setting. Quality Stroke Does the patient have a stroke diagnosis?: No VTE Prior VTE?: No VTE Risk Level:: Medical - moderate - high VTE Device Contraindication: Treatment Not Indicated VTE Drug Contraindication: N/A - Med Ordered
--- NOTE | 2023-07-20 11:46 | MHC.RECOVRN ---
Met with pt [id number] after consult placed to Addiction Medicine AUD.? Chart review completed. Pt had presented to the ED looking for detox placement with h/o seizures from ETOH W/D.? Last drink per his report was on 07/16 at 1100AM.? ?Pt was admitted to the floor for continued inpatient hospitalization for management of alcohol withdrawal requiring as needed IV Ativan, that can not be done in less acute setting. ?He is currently on suboxone 8mg BID which is documented in his chart but he did not report during our meeting.? Upon assessment pt is in bed awake and alert.?He sat up for our meeting and was interested in discussion on other options available for AUD.? ?Pt had visible tremors and had scored a 3 on this AM CIWA.? ?? Pt reports he is currently on acamprosate for AUD but does not take it consistently.? He also reports that he has been drinking his ?whole life? but had a long period of sobriety recently (could not define ?long?).? He reported that he returned to drinking a week ago and came in for help.? ?? [facility] He also attends groups for substance use and PTSD there.? His prescriber for AUD is there also and per pt specializes in addiction medicine.? Pt is content with the services he is currently receiving and would like to continue at that facility.? He is, however, open to other resources and FRANCOIS?s that are available.? T/W provided pt with resources for recovery, support and FRANCOIS.? Report with pt?s nurse Gudelia and ACS team provided. ACS available PRN throughout pt?s stay.
[2023-07-20] MEDS: LORazepam 2 MG/ML VIAL 1 MG IVPUSH ×3 (12:59→16:47)
[2023-07-20 15:11] VITALS: BP 130/73; PULSE 98; RESP 20; TEMP 36; O2SAT 95
[2023-07-20 16:15] LABS: Glucose, Whole Blood 195 mg/dL (60-115)
--- NOTE | 2023-07-20 17:45 | PC.NURSE ---
Pt becoming restless, pacing in room. States he is become more anxious, asking for ativan. Attempted IV ativan however IV leaking. New iv inserted into Right hand, IV ativan given with pending effect
--- NOTE | 2023-07-20 17:46 | PC.NURSE ---
Addendum entered by Gudelia Alanis RN 07/20/23 18:20: 1555- Pt again pacing around room, restless, states im feeling very jittery right now and i need something Dr Bee notified. IM phenobarbital ordered and given. Results pending Addendum entered by Gudelia Alanis RN 07/20/23 17:49: 1647- Pt continues to pace in room. Asking for ativan forgetting that it had been given. Attempted to lay back in bed however jumps right up and starts to pace again. Dr Bee notified, additional dose of IV ativan given. Pt sleeping at this time Original Note: 1543- Pt CIWA score 8. Pt increasing restlessness, increasing confusion. Pacing in room. IV to right hand bent and unable to flush. New IV inserted into left hand. Dr Bee notified. IV ativan ordered and given.
[2023-07-20] MEDS: PHENobarbitaL sodium 130 MG/ML VIAL 292.5 MG IM (18:10)
[2023-07-20 18:49] VITALS: BP 139/87; PULSE 94; RESP 14; TEMP 36.7; O2SAT 91
[2023-07-20] MEDS: Tamsulosin HCL 0.4 MG CAPSULE 0.8 MG PO (20:33)
[2023-07-20] MEDS: traZODone HCL 100 MG TABLET 300 MG PO (20:33)
[2023-07-20] MEDS: Atorvastatin Calcium 10 MG TABLET PO (20:34)
[2023-07-20] MEDS: Metoprolol Succinate ER 25 MG TAB.ER.24H PO (20:34)
[2023-07-20] MEDS: Sennosides/Docusate Sodium TABLET 2 TAB PO (20:34)
[2023-07-20] MEDS: Melatonin 3 MG TABLET 6 MG PO (20:34)
[2023-07-20] MEDS: hydrOXYzine HCL 25 MG TABLET PO (20:35)
[2023-07-20] MEDS: Enoxaparin Sodium 40 MG/0.4 ML SYRINGE SUBCUT (20:35)
[2023-07-21] VITALS (8 sets, daily range): BP systolic 108–159; BP diastolic 62–83; PULSE 70–108; RESP 16–21; TEMP 36–36.6; O2SAT 91–95
[2023-07-21 07:42] LABS: Glucose, Whole Blood 142 mg/dL (60-115)
[2023-07-21] MEDS: Gabapentin 400 MG CAPSULE 1200 MG PO ×3 (08:48→20:47)
[2023-07-21] MEDS: DULoxetine HCl 60 MG CAPSULE.DR PO (08:48)
[2023-07-21] MEDS: PHENobarbitaL 30 MG TABLET PO ×2 (08:48→20:47)
[2023-07-21] MEDS: Thiamine HCL 100 MG TABLET PO (08:48)
[2023-07-21] MEDS: Multivitamin TABLET 1 TAB PO (08:48)
[2023-07-21] MEDS: Acyclovir 200 MG CAPSULE 400 MG PO ×2 (08:48→20:46)
[2023-07-21] MEDS: busPIRone HCl 5 MG TABLET PO ×2 (08:49→20:48)
[2023-07-21] MEDS: Finasteride 5 MG TABLET PO (08:49)
[2023-07-21] MEDS: 0.9 % Sodium Chloride Flush 3 ML SYRINGE IVFLUSH ×3 (08:49→19:48)
[2023-07-21] MEDS: Buprenorphine/Naloxone 8/2 mg FILM 1 FILM BUCCAL ×2 (08:50→20:48)
[2023-07-21 11:13] LABS: Glucose, Whole Blood 188 mg/dL (60-115)
[2023-07-21] MEDS: Insulin Lispro 100 UNIT/ML 3 ML VIAL SUBCUT ×2 (11:47→16:55)
[2023-07-21] MEDS: LORazepam 2 MG/ML VIAL 1 MG IVPUSH ×2 (11:51→19:47)
--- NOTE | 2023-07-21 12:11 | P.PNIM_ITS ---
Subjective Subjective Date of Service: 07/21/23 Interval History: Require increasing doses of Ativan yesterday afternoon with additional IM phenobarb. CIWA scale has been less than 10 overnight but still jittery Review of Systems Denies chest pain Denies shortness of breath Denies nausea vomiting diarrhea Denies fever chills Physical Exam 2 Vital Signs: Vital Signs: Last Vital Signs Temp 96.8 F 07/21/23 07:40 Pulse 70 07/21/23 07:40 Resp 16 07/21/23 07:40 BP 130/70 07/21/23 07:40 Pulse Ox 92 07/21/23 07:40 O2 Del Method Nasal Cannula 07/21/23 07:40 O2 Flow Rate 2 07/21/23 07:40 BMI result Body Mass Index 33.6 Const: Other: Awake alert oriented x3 no acute distress Resp: Other: Clear to auscultation bilaterally no rales rhonchi or wheezes Cardio: Other: No S4; positive S1-S2; no S3 murmurs rubs or gallops GI: Other: Soft nontender nondistended normoactive bowel sounds Neuro: Other: Cranial nerves 2-12 grossly intact as tested. Motor is 5/5 all extremities. Sensation is intact cognition appropriate gait steady Extrem: Other: No edema bilaterally Objective Data Active Medications Acetaminophen (Acetaminophen 325 Mg Tablet) 650 mg PO Q6H PRN PRN Reason: Pain, Mild (Pain Scale 1-3) Acyclovir (Acyclovir 200 Mg Capsule) 400 mg PO BID [facility] Last Admin: 07/21/23 08:48 Dose: 400 mg Documented By: GRETEL Al Hydroxide/Mg Hydroxide (Magnesium Hydrox/Alum Hydrox 30 Ml Oral.Susp) 30 ml PO Q4H PRN PRN Reason: heart burn Albuterol/Ipratropium (Albuterol/Iprat 2.5/0.5mg 3 Ml Ampul.Neb) 3 ml INHALE Q4H PRN PRN Reason: Wheezing Atorvastatin Calcium (Atorvastatin Calcium 10 Mg Tablet) 10 mg PO BEDTIME [facility] Last Admin: 07/20/23 20:34 Dose: 10 mg Documented By: BRANDON Buprenorphine/Naloxone (Buprenorphine/Naloxone 8/2 Mg Film) 1 film BUCCAL BID [facility] Last Admin: 07/21/23 08:50 Dose: 1 film Documented By: GRETEL Buspirone HCl (Buspirone Hcl 5 Mg Tablet) 5 mg PO BID [facility] Last Admin: 07/21/23 08:49 Dose: 5 mg Documented By: GRETEL Cyclobenzaprine HCl (Cyclobenzaprine Hcl 10 Mg Tablet) 10 mg PO TID PRN PRN Reason: Muscle Spasm Duloxetine HCl (Duloxetine Hcl 60 Mg Capsule.Dr) 60 mg PO DAILY [facility] Last Admin: 07/21/23 08:48 Dose: 60 mg Documented By: GRETEL Enoxaparin Sodium (Enoxaparin Sodium 40 Mg/0.4 Ml Syringe) 40 mg SUBCUT Q24H [facility] Last Admin: 07/20/23 20:35 Dose: 40 mg Documented By: BRANDON Finasteride (Finasteride 5 Mg Tablet) 5 mg PO DAILY [facility] Last Admin: 07/21/23 08:49 Dose: 5 mg Documented By: GRETEL Gabapentin (Gabapentin 400 Mg Capsule) 1,200 mg PO TID [facility] Last Admin: 07/21/23 08:48 Dose: 1,200 mg Documented By: GRETEL Glucose (Glucose Gel 15 Gm Gel..Gram.) 15 gm PO Q15M PRN; Protocol PRN Reason: per Hypoglycemia Standing Ord. Hydroxyzine HCl (Hydroxyzine Hcl 25 Mg Tablet) 25 mg PO BEDTIME [facility] Last Admin: 07/20/23 20:35 Dose: 25 mg Documented By: BRANDON Dextrose (D10) 250 mls @ 750 mls/hr IV Q15M PRN; Protocol PRN Reason: per Hypoglycemia Standing Ord. Insulin Human Lispro (Insulin Lispro 100 Unit/Ml 3 Ml Vial) 0 unit SUBCUT QIDACHS [facility]; Protocol Last Admin: 07/21/23 11:47 Dose: 4 unit Documented By: EDEN Lorazepam (Lorazepam 2 Mg/Ml Vial) 1 mg IVPUSH Q6H PRN PRN Reason: anxiety/restlessness Stop: 07/21/23 12:26 Last Admin: 07/21/23 11:51 Dose: 1 mg Documented By: EDEN Melatonin (Melatonin 3 Mg Tablet) 6 mg PO BEDTIME PRN PRN Reason: Insomnia Last Admin: 07/20/23 20:34 Dose: 6 mg Documented By: BRANDON Metoprolol Succinate (Metoprolol Succinate Er 25 Mg Tab.Er.24h) 25 mg PO BEDTIME [facility]; Protocol Last Admin: 07/20/23 20:34 Dose: 25 mg Documented By: BRANDON Multivitamins/Vitamin C (Multivitamin Tablet) 1 tab PO DAILY [facility] Last Admin: 07/21/23 08:48 Dose: 1 tab Documented By: GRETEL Non-Formulary Medication (Testosterone) 2 packet TRANSDERMA DAILY [facility] Omeprazole (Omeprazole 40 Mg Capsule.Dr) 40 mg PO DAILY@0630 [facility] Last Admin: 07/21/23 06:06 Dose: Not Given Documented By: BRANDON Non-Admin Reason: Patient Refused Ondansetron HCl (Ondansetron Hcl 4 Mg/2 Ml Vial) 4 mg IVPUSH Q8H PRN PRN Reason: Nausea and Vomiting Last Admin: 07/18/23 12:16 Dose: 4 mg Documented By: MIGUELINA Pharmacy Consult (Consult Rx Etoh Phenob Im/Po) 1 each MISCELLANE ONCE PRN; Protocol PRN Reason: Consult order Phenobarbital (Phenobarbital 30 Mg Tablet) 30 mg PO BID [facility]; Protocol Stop: 07/21/23 21:01 Last Admin: 07/21/23 08:48 Dose: 30 mg Documented By: GRETEL Phenobarbital (Phenobarbital 15 Mg Tablet) 15 mg PO DAILY [facility]; Protocol Stop: 07/23/23 09:01 Senna/Docusate Sodium (Sennosides/Docusate Sodium Tablet) 2 tab PO BEDTIME [facility] Last Admin: 07/20/23 20:34 Dose: 2 tab Documented By: BRANDON Sodium Chloride (0.9 % Sodium Chloride Flush 3 Ml Syringe) 3 ml IVFLUSH QSHIFT [facility] Last Admin: 07/21/23 08:49 Dose: 3 ml Documented By: GRETEL Tamsulosin HCl (Tamsulosin Hcl 0.4 Mg Capsule) 0.8 mg PO BEDTIME [facility] Last Admin: 07/20/23 20:33 Dose: 0.8 mg Documented By: BRANDON Thiamine HCl (Thiamine Hcl 100 Mg Tablet) 100 mg PO DAILY [facility] Last Admin: 07/21/23 08:48 Dose: 100 mg Documented By: GRETEL Trazodone HCl (Trazodone Hcl 100 Mg Tablet) 300 mg PO BEDTIME [facility] Last Admin: 07/20/23 20:33 Dose: 300 mg Documented By: BRANDON Labs 07/18/23 06:02 07/18/23 06:02 Labs: Laboratory Results - last 24 hr 07/20/23 07/21/23 07/21/23 16:09 07:36 11:09 POC Glucose 195 H 142 H 188 H Assessment and Plan (1) Alcohol withdrawal syndrome: Status: Acute (2) Hypertension: Status: Acute Plan 62-year-old male with pertinent history of alcohol use disorder with history of alcohol withdrawal, [id number] diabetes mellitus, mood disorder, BPH, tobacco use disorder, essential hypertension, mixed hyperlipidemia, opiates use disorder on Suboxone, chronic pain who presents to the emergency department for concerns of alcohol withdrawal. 1.Alcohol abuse/withdrawal: -continues to escalate protocol in late afternoon early evening -phenobarb protocol/PRN Ativan as needed, monitor CIWA -folic acid/thiamine -Addiction Medicine consult appreciated 2.Acute hypoxemic respiratory failure due to exacerbation of obstructive lung disease. - resolved 3.Alcoholic gastritis -PPI -PRN maalox 4.[id number] diabetes mellitus -acceptable control on current therapies -lispro correctional scale -adjust as indicated 5.Essential hypertension -acceptable control on current therapies -adjust as indicated Lovenox Full code Patient will require continued inpatient hospitalization for management of alcohol withdrawal requiring as needed IV Ativan, that can not be done in less acute setting. Quality Stroke Does the patient have a stroke diagnosis?: No VTE Prior VTE?: No VTE Risk Level:: Medical - moderate - high VTE Device Contraindication: Treatment Not Indicated VTE Drug Contraindication: N/A - Med Ordered
[2023-07-21] MEDS: PHENobarbitaL sodium 130 MG/ML VIAL 292.5 MG IM (14:25)
[2023-07-21 16:21] LABS: Glucose, Whole Blood 213 mg/dL (60-115)
--- NOTE | 2023-07-21 17:21 | PC.NURSE ---
CIWA scoring from 3-10 this shift. Pt with eyes closed and lying in bed at times but impulsive and will jump up stating I'm confused, whats going on here? States he is anxious and restless, pacing in room. Dr Bee notified of increased CIWA, dose of IM phenobarbital ordered and given with some effect. Pt dozing afterwards. Will continue to monitor
[2023-07-21 20:29] LABS: Glucose, Whole Blood 143 mg/dL (60-115)
[2023-07-21] MEDS: traZODone HCL 100 MG TABLET 300 MG PO (20:47)
[2023-07-21] MEDS: Tamsulosin HCL 0.4 MG CAPSULE 0.8 MG PO (20:47)
[2023-07-21] MEDS: Sennosides/Docusate Sodium TABLET 2 TAB PO (20:47)
[2023-07-21] MEDS: hydrOXYzine HCL 25 MG TABLET PO (20:48)
[2023-07-21] MEDS: Metoprolol Succinate ER 25 MG TAB.ER.24H PO (20:48)
[2023-07-21] MEDS: Atorvastatin Calcium 10 MG TABLET PO (20:48)
[2023-07-21] MEDS: Enoxaparin Sodium 40 MG/0.4 ML SYRINGE SUBCUT (20:48)
[2023-07-22] VITALS (39 sets, daily range): BP systolic 63–181; BP diastolic 39–103; PULSE 48–102; RESP 16–26; TEMP 33.6–38.2; O2SAT 89–100
[2023-07-22 03:38] LABS: Glucose, Whole Blood 175 mg/dL (60-115)
[2023-07-22] MEDS: ondansetron HCL 4 MG/2 ML VIAL IVPUSH (05:41)
[2023-07-22 07:26] LABS: Glucose, Whole Blood 222 mg/dL (60-115)
[2023-07-22] MEDS: 0.9 % Sodium Chloride Flush 3 ML SYRINGE IVFLUSH ×2 (08:37→15:37)
[2023-07-22 09:35] LABS: Glucose, Whole Blood 251 mg/dL (60-115)
--- NOTE | 2023-07-22 10:15 | PC.NURSE ---
Assessed pt this morning after report at approx 07:45. Pt sleeping, snoring loudly. Pt with O2 via mask at 3L. Lungs diminished. Pt awoke briefly during assessment, but immediately fell back asleep. Pt appeared to be in no distress. At approx 09:25, Dr. Bee went in to assess pt. and instructed this nurse to have a rapid response called. [employer] arrived at 09:30 Pt with no gag reflex, audible snoring and pt unresponsive. Decision to have Albert lambert called, although patient never lost a pulse. SaO2 79%. Pt intubated at bedside at 09:35. O.G. tube 22 cm at the lip. HR 120's BP 116/65 SaO2 85%. Pt on way to ICU SaO2 92% BP 113/65 HR 118. This nurse went down to ICU to give report. Receiving nurse busy right now, and will call for report when ready.
[2023-07-22 10:20] LABS: ABG Base Excess 2.3 mmol/L; ABG HCO3 36 mmol/L (22-26); ABG pCO2 110 mmHg (32-45); ABG pH 7.12 (7.35-7.45); ABG pO2 139 mmHg (83-108)
--- NOTE | 2023-07-22 10:26 | ECG_ITS ---
Test Reason : irregular rhythm Blood Pressure : / mmHG Vent. Rate : 069 BPM Atrial Rate : 069 BPM P-R Int : 182 ms QRS Dur : 092 ms QT Int : 372 ms P-R-T Axes : 044 -13 043 degrees QTc Int : 398 ms Sinus rhythm with PACs Otherwise normal ECG When compared with ECG of 17-JUL-2023 14:27, Previous ECG has significant artifact Referred By: Herber Alvarado Electronically Signed By:Eric Sykes
--- NOTE | 2023-07-22 10:28 | P.PNCC_ITS ---
Subjective Subjective Date of Service: 07/22/23 Interval History: 62-year-old gentleman with underlying all abuse with prior episodes of alcohol withdrawal, history of opiate dependence on Suboxone, diabetes mellitus, depression, hypertension admitted on 07/17/2023 with alcohol withdrawal in treated with phenobarbital alcohol withdrawal protocol on 07/22/2023 patient with an aspiration event requiring intubation with ventilatory support and transfer to intensive care unit. Critical Care Time (minutes): 60 Physical Exam 2 Vital Signs: Vital Signs: Last Vital Signs Temp 97.2 F 07/22/23 03:44 Pulse 69 07/22/23 10:05 Resp 21 H 07/22/23 10:05 BP 104/61 07/22/23 10:05 Pulse Ox 97 07/22/23 10:05 O2 Del Method Mechanical Ventil ation 07/22/23 10:05 O2 Flow Rate 2 07/21/23 07:40 FiO2 100 07/22/23 10:05 BMI result Body Mass Index 33.6 Const: General: no acute distress and other (Sedated on the vent) Eyes: Sclerae: sclerae normal Neck: Neck: Yes no lymphadenopathy, Yes trachea midline and Yes supple Resp: Auscultation: crackles (Bibasilar) Cardio: Rate: regular rate Rhythm: regular rhythm Heart sounds: no gallops, no murmurs and no rubs GI: Palpation (GI): Soft to palpation and Other GI palpation findings present ( Nontender) Auscultation: normal bowel sounds Extrem: General: Yes no pedal edema, No clubbing and No cyanosis Objective Data Labs 07/18/23 06:02 07/18/23 06:02 Labs: Laboratory Results - last 24 hr 07/21/23 07/21/23 07/21/23 11:09 16:13 20:26 O2 Saturation ABG pH at Pt Temp ABG pCO2 at Pt Temp ABG pO2 at Pt Temp ABG HCO3 ABG Base Excess (Actual) POC Glucose 188 H 213 H 143 H 07/22/23 07/22/23 07/22/23 03:33 07:22 09:32 O2 Saturation ABG pH at Pt Temp ABG pCO2 at Pt Temp ABG pO2 at Pt Temp ABG HCO3 ABG Base Excess (Actual) POC Glucose 175 H 222 H 251 H 07/22/23 10:12 O2 Saturation 100.0 ABG pH at Pt Temp 7.12 L* ABG pCO2 at Pt Temp 110 H* ABG pO2 at Pt Temp 139 H ABG HCO3 36 H ABG Base Excess (Actual) 2.3 POC Glucose Progress Note: A&P Assessment and plan (1) Pulmonary aspiration: Status: Acute (2) Acute hypoxemic respiratory failure: Status: Acute (3) Alcohol withdrawal syndrome: Status: Acute (4) Diabetes: Status: Acute Plan Assessment: 62-year-old gentleman admitted with alcohol withdrawal syndrome initially treated with phenobarbital protocol on telemetry with hospital course complicated by an aspiration event requiring intubation and transfer to intensive care unit on 07/22/2023 Plan: Neuro: Alcohol withdrawal, continue to titrate off Precedex as tolerated. Cardiac: No acute issues. Pulmonary: Acute hypoxic respiratory failure secondary to pulmonary aspiration, now requiring ventilatory support, continue to titrate off as tolerated. Renal: No acute issues. Endo: No acute issues. Underlying diabetes mellitus. GI: No acute issues. ID: No acute issues Heme/Onc: No acute issues. Psych: No acute issues. Miscellaneous: No acute issues. Prophylaxis: Heparin, omeprazole Diet: Nothing by mouth Critical care time spent: 60 minutes Quality Stroke Does the patient have a stroke diagnosis?: No VTE Prior VTE?: No VTE Risk Level:: Medical - moderate - high VTE Device Contraindication: Treatment Not Indicated VTE Drug Contraindication: N/A - Med Ordered
[2023-07-22 10:30] LABS: MANUAL DIFF FLAG NO
[2023-07-22 10:31] LABS: Basophils Absolute Auto 0.1 X10*3/uL (0.0-0.2); Basophils Percent Auto 0.5 % (0-2); Hematocrit 45.9 % (42.0-52.0); Imm Gran Abs Auto 0.13 X10*3/uL (0.00-0.03); Imm Gran Pct Auto 0.6 % (0.0-0.4); Lymphocytes Absolute Auto 0.8 X10*3/uL (1.2-4.9); Lymphocytes Percent Auto 3.6 % (20-40); Mean Corpuscular HGB Conc 32.7 g/dl (31.0-36.0); Mean Corpuscular Hemoglobin 31.3 pg (27.0-33.0); Mean Corpuscular Volume 95.8 fL (80.0-98.0); Mean Platelet Volume 10.7 fL (9.4-12.4); Monocytes Absolute Auto 1.4 X10*3/uL (0.1-1.2); Monocytes Percent Auto 6.3 % (2-11); Neutrophils Absolute Auto 19.5 x10*3/uL (2.0-8.3); Platelet Count 238 X10*3/uL (160-400); Red Blood Count 4.79 X10*6/uL (4.60-5.80); Red Cell Distribution Width 14.6 % (11.0-16.0); White Blood Count 21.9 X10*3/uL (4.8-10.8)
[2023-07-22] MEDS: dexmedeTOMIDidine HCL/NS 400 MCG/100 ML INFUS..BTL 26.53 MCG IVCONT (10:43)
[2023-07-22] MEDS: propofoL 200 MG/20 ML VIAL 50 MG IVPUSH (10:45)
[2023-07-22 11:10] LABS: Glucose, Whole Blood 242 mg/dL (60-115)
[2023-07-22] MEDS: Insulin Lispro 100 UNIT/ML 3 ML VIAL SUBCUT ×2 (11:12→17:19)
[2023-07-22] MEDS: Norepinephrine Bitartrate/D5W 8 MG/250 ML PLAST..BAG 9.95 MG IV (11:22)
[2023-07-22] MEDS: propofoL 1,000 MG/100 ML VIAL 19.1 MG IVCONT (11:35)
[2023-07-22 11:46] LABS: ABG Base Excess 5.6 mmol/L; ABG HCO3 34 mmol/L (22-26); ABG pCO2 71 mmHg (32-45); ABG pH 7.29 (7.35-7.45); ABG pO2 114 mmHg (83-108)
[2023-07-22] MEDS: levoFLOXacin/D5W 750 MG/150 ML PIGGYBACK 100 MG IV (12:03)
[2023-07-22 12:38] LABS: Potassium 6.6 mmol/L (3.3-5.1)
[2023-07-22 12:39] LABS: Alanine Aminotransferase 20 U/L (0-40); Albumin Level 4.1 g/dL (3.5-5.0); Alkaline Phosphatase 67 U/L (39-117); Anion Gap 21 (12-20); Aspartate Amino Transferase 25 U/L (5-37); Bilirubin Total 0.3 mg/dL (0.0-1.0); Blood Urea Nitrogen 15 mg/dL (9-16); Calcium 9.7 mg/dL (8.4-10.2); Carbon Dioxide 32 mmol/L (22-29); Chloride 95 mmol/L (96-108); Creatinine Clr Calc Pharmacy 95.8; Estimated Glomerular Filt Rate > 60; Glucose Random 264 mg/dL (60-115); Magnesium 2.1 mg/dL (1.6-2.6); Phosphorus 4.8 mg/dL (2.7-4.5); Sodium 141 mmol/L (135-145); Total Protein 7.9 g/dL (6.5-8.0)
--- NOTE | 2023-07-22 13:23 | PM.UROCN ---
History of Present Illness Consult details Consult date: 07/22/23 Narrative: CC: difficulty cooper catheter placement HPI: Present to hospital with exacerbation of alcoholic cirrhosis. Known BPH. On finasteride and tamsulosin as an outpatient. Nursing staff have tried to place Cooper multiple times - had meatal narrowing. Cooper catheter placed by urologic staff member. Good efflux of urine. See nursing note for description of total output. Cooper catheter needed for urinary output while on ventilator Difficult Cooper Placement CPT 73620 Review of Systems Constitutional: Constitutional: Reports as per HPI and Reports no additional constitutional complaints Cardiovascular: Cardiovascular: Reports as per HPI and Reports no additional cardiovascular complaints Respiratory: Respiratory: Reports as per HPI and Reports no additional respiratory complaints Gastrointestinal: Gastrointestinal: Reports as per HPI and Reports no additional gastrointestinal complaints Genitourinary: Genitourinary: Reports as per HPI Musculoskeletal: Musculoskeletal: Reports no additional musculoskeletal complaints and Reports as per HPI Neurologic: Reports system reviewed and no additional complaints, except as documented and Reports as per HPI PMF Past Medical History Medical History (Updated 07/22/23 @ 13:24 by Meño Hughes MD) Alcohol use disorder, severe, dependence Alcohol abuse Hyperlipidemia Depression with anxiety Diabetes Hypertension Social History Social History Household Members: None Household Members Other:: Self with a dog{ Parker} Housing: House Do you presently have visiting nurse or other home services: No Alcohol intake: current Alcohol intake frequency: 3 or more drinks per day Alcohol type: beer Comment: 1:1 sitter Patient Tobacco Use Status: Former Tobacco user Quit Date: 2014 Second Hand Smoke Exposure: No Substance Use Type: Marijuana service: Yes Meds Allergies Allergy/AdvReac Type Severity Reaction Status Date / Time No Known Allergies Allergy Verified 07/17/23 15:19 Active Medications: Current Medications Chlorhexidine Gluconate (Chlorhexidine Gluc Oral Rinse 15 Ml Mouthwash) 15 ml BUCCAL TID ANA Enoxaparin Sodium (Enoxaparin Sodium 40 Mg/0.4 Ml Syringe) 40 mg SUBCUT Q24H [facility] Last Admin: 07/21/23 20:48 Dose: 40 mg Glucose (Glucose Gel 15 Gm Gel..Gram.) 15 gm PO Q15M PRN; Protocol PRN Reason: per Hypoglycemia Standing Ord. Dextrose (D10) 250 mls @ 750 mls/hr IV Q15M PRN; Protocol PRN Reason: per Hypoglycemia Standing Ord. Dexmedetomidine HCl (Precedex) 400 mcg in 100 mls @ 0 mls/hr IVCONT .Q0M ANA; Protocol Last Titration: 07/22/23 11:35 Dose: 0 mcg/kg/hr, 0 mls/hr Propofol (Diprivan) 1,000 mg in 100 mls @ 0 mls/hr IVCONT .Q0M ANA; Protocol Last Titration: 07/22/23 12:29 Dose: 50 mcg/kg/min, 31.83 mls/hr Norepinephrine Bitartrate (Levophed) 8 mg in 250 mls @ 0 mls/hr IV .Q0M ANA; Protocol Last Titration: 07/22/23 12:33 Dose: 0.08 mcg/kg/min, 15.92 mls/hr Levofloxacin (Levaquin) 750 mg in 150 mls @ 100 mls/hr IV Q24H [facility] Last Admin: 07/22/23 12:03 Dose: 100 mls/hr Insulin Human Lispro (Insulin Lispro 100 Unit/Ml 3 Ml Vial) 0 unit SUBCUT Q6H ANA; Protocol Last Admin: 07/22/23 11:12 Dose: 8 unit Non-Formulary Medication (Testosterone) 2 packet TRANSDERMA DAILY [facility] Omeprazole (Omeprazole/Na Bicarb Oral Susp 20 Mg/10 Ml Ud Cup) 40 mg PO DAILY@629 [facility] Ondansetron HCl (Ondansetron Hcl 4 Mg/2 Ml Vial) 4 mg IVPUSH Q8H PRN PRN Reason: Nausea and Vomiting Last Admin: 07/22/23 05:41 Dose: 4 mg Sodium Chloride (0.9 % Sodium Chloride Flush 3 Ml Syringe) 3 ml IVFLUSH QSHIFT [facility] Last Admin: 07/22/23 08:37 Dose: 3 ml Home Medications ?Medication ?Instructions ?Recorded ?Confirmed ?Last Taken ?Type acyclovir 400 mg tablet 400 mg PO BID 11/21/22 07/17/23 07/17/23 History atorvastatin 20 mg tablet 10 mg PO BEDTIME 11/21/22 07/17/23 07/16/23 History buprenorphine 8 mg-naloxone 2 mg 1 film buccal BID 11/21/22 07/17/23 07/17/23 History sublingual film (Suboxone) buspirone 5 mg tablet 5 mg PO BID 11/21/22 07/17/23 07/17/23 History finasteride 5 mg tablet 5 mg PO DAILY 11/21/22 07/17/23 07/17/23 History gabapentin 400 mg capsule 1,200 mg PO TID Anxiety/Pain 11/21/22 07/17/23 07/17/23 History hydroxyzine HCl 25 mg tablet 25 mg PO BEDTIME 11/21/22 07/17/23 07/16/23 History melatonin 5 mg tablet 5 mg PO BEDTIME 11/21/22 07/17/23 07/17/23 History metformin 1,000 mg tablet 1,000 mg PO DAILY 11/21/22 07/17/23 07/17/23 History metoprolol succinate 25 mg capsule 25 mg PO BEDTIME 11/21/22 07/17/23 07/16/23 History sprinkle, ext. release 24 hr multivitamin 1 tab PO DAILY 11/21/22 07/17/23 07/17/23 History sennosides 8.6 mg-docusate sodium 2 tab-cap PO BEDTIME Constipation 11/21/22 07/17/23 07/16/23 History 50 mg tablet tamsulosin 0.4 mg capsule 0.8 mg PO BEDTIME 11/21/22 07/17/23 07/16/23 History trazodone 100 mg tablet 300 mg PO BEDTIME 11/21/22 07/17/23 07/16/23 History cyclobenzaprine 10 mg tablet 10 mg PO TID PRN Muscle Spasm 01/31/23 07/17/23 Unknown History duloxetine 60 mg capsule,delayed 60 mg PO DAILY 07/17/23 07/17/23 07/17/23 History release sprinkle testosterone 1.62 % (20.25 mg/1.25 2 packet transdermal DAILY 07/17/23 07/17/23 07/17/23 History gram) transdermal gel packet vitamin B complex 1 tab PO DAILY 07/17/23 07/17/23 07/17/23 History Physical Exam Vital Signs: Vital Signs: Last Vital Signs Temp 98.3 F 07/22/23 12:00 Pulse 74 07/22/23 12:58 Resp 26 H 07/22/23 12:58 BP 134/88 07/22/23 12:58 Pulse Ox 98 07/22/23 12:58 O2 Del Method Mechanical Ventil ation 07/22/23 12:58 O2 Flow Rate 2 07/21/23 07:40 FiO2 80 07/22/23 12:58 BMI result Body Mass Index 33.6 Const: General: cooperative, healthy appearing, comfortable and no acute distress Orientation/consciousness: patient oriented x3 HEENT: Face and sinus: Yes normal facial exam Mouth: moist mucous membranes Neck: Neck: Yes normal visual inspection, Yes full ROM and Yes trachea midline Chest: Chest palpation & inspection: normal inspection of the chest Resp: Effort & Inspection: normal respiratory effort, able to speak in complete sentences and no respiratory distress GI: Inspection: Yes normal to inspection Back/Spine/Pelvis: Cervical Spine: normal cervical lordosis Thoracic/Lumbar Spine: thoracic and lumbar spine normal to inspection Skin: General skin exam: no rashes or lesions noted Neuro: General: patient oriented x3, tone normal and moves all extremities Extrem: General: Yes normal to inspection and Yes capillary refill normal Results Labs 07/22/23 10:25 07/22/23 11:55 Labs: Abnormal lab results 07/21/23 07/21/23 07/22/23 Range/Units 16:13 20:26 03:33 WBC (4.8-10.8) X10*3/uL Immature Gran % (Auto) (0.0-0.4) % Neut % (Auto) (45-73) % Lymph % (Auto) (20-40) % Lymph # (Auto) (1.2-4.9) X10*3/uL [place] # (Auto) (0.1-1.2) X10*3/uL Abs Immat Gran (auto) (0.00-0.03) X10*3/uL Absolute Neuts (auto) (2.0-8.3) x10*3/uL ABG pH at Pt Temp (7.35-7.45) ABG pCO2 at Pt Temp (32-45) mmHg ABG pO2 at Pt Temp (83-108) mmHg ABG HCO3 (22-26) mmol/L Potassium (3.3-5.1) mmol/L Chloride (96-108) mmol/L Carbon Dioxide (22-29) mmol/L Anion Gap (12-20) POC Glucose 213 H 143 H 175 H (60-115) mg/dL Random Glucose (60-115) mg/dL Phosphorus (2.7-4.5) mg/dL 07/22/23 07/22/23 07/22/23 Range/Units 07:22 09:32 10:12 WBC (4.8-10.8) X10*3/uL Immature Gran % (Auto) (0.0-0.4) % Neut % (Auto) (45-73) % Lymph % (Auto) (20-40) % Lymph # (Auto) (1.2-4.9) X10*3/uL [place] # (Auto) (0.1-1.2) X10*3/uL Abs Immat Gran (auto) (0.00-0.03) X10*3/uL Absolute Neuts (auto) (2.0-8.3) x10*3/uL ABG pH at Pt Temp 7.12 L* (7.35-7.45) ABG pCO2 at Pt Temp 110 H* (32-45) mmHg ABG pO2 at Pt Temp 139 H (83-108) mmHg ABG HCO3 36 H (22-26) mmol/L Potassium (3.3-5.1) mmol/L Chloride (96-108) mmol/L Carbon Dioxide (22-29) mmol/L Anion Gap (12-20) POC Glucose 222 H 251 H (60-115) mg/dL Random Glucose (60-115) mg/dL Phosphorus (2.7-4.5) mg/dL 07/22/23 07/22/23 07/22/23 Range/Units 10:25 11:04 11:38 WBC 21.9 H (4.8-10.8) X10*3/uL Immature Gran % (Auto) 0.6 H (0.0-0.4) % Neut % (Auto) 89.0 H (45-73) % Lymph % (Auto) 3.6 L (20-40) % Lymph # (Auto) 0.8 L (1.2-4.9) X10*3/uL [place] # (Auto) 1.4 H (0.1-1.2) X10*3/uL Abs Immat Gran (auto) 0.13 H (0.00-0.03) X10*3/uL Absolute Neuts (auto) 19.5 H (2.0-8.3) x10*3/uL ABG pH at Pt Temp 7.29 L (7.35-7.45) ABG pCO2 at Pt Temp 71 H* (32-45) mmHg ABG pO2 at Pt Temp 114 H (83-108) mmHg ABG HCO3 34 H (22-26) mmol/L Potassium (3.3-5.1) mmol/L Chloride (96-108) mmol/L Carbon Dioxide (22-29) mmol/L Anion Gap (12-20) POC Glucose 242 H (60-115) mg/dL Random Glucose (60-115) mg/dL Phosphorus (2.7-4.5) mg/dL 07/22/23 Range/Units 11:55 WBC (4.8-10.8) X10*3/uL Immature Gran % (Auto) (0.0-0.4) % Neut % (Auto) (45-73) % Lymph % (Auto) (20-40) % Lymph # (Auto) (1.2-4.9) X10*3/uL [place] # (Auto) (0.1-1.2) X10*3/uL Abs Immat Gran (auto) (0.00-0.03) X10*3/uL Absolute Neuts (auto) (2.0-8.3) x10*3/uL ABG pH at Pt Temp (7.35-7.45) ABG pCO2 at Pt Temp (32-45) mmHg ABG pO2 at Pt Temp (83-108) mmHg ABG HCO3 (22-26) mmol/L Potassium 6.6 H* D (3.3-5.1) mmol/L Chloride 95 L (96-108) mmol/L Carbon Dioxide 32 H (22-29) mmol/L Anion Gap 21 H (12-20) POC Glucose (60-115) mg/dL Random Glucose 264 H (60-115) mg/dL Phosphorus 4.8 H (2.7-4.5) mg/dL Short CBC 07/22/23 Range/Units 10:25 WBC 21.9 H (4.8-10.8) X10*3/uL Hgb 15.0 (14.0-18.0) g/dl Hct 45.9 (42.0-52.0) % Plt Count 238 (160-400) X10*3/uL BMP 07/22/23 11:55 Sodium 141 Potassium 6.6 H* D Chloride 95 L Carbon Dioxide 32 H BUN 15 Creatinine 0.95 Calcium 9.7 Liver Function 07/22/23 Range/Units 11:55 Total Bilirubin 0.3 (0.0-1.0) mg/dL AST 25 (5-37) U/L ALT 20 (0-40) U/L Alkaline Phosphatase 67 (39-117) U/L Albumin 4.1 (3.5-5.0) g/dL Urine 07/17/23 Range/Units 16:53 Urine Color Yellow Urine Appearance Clear Urine pH 6.0 (5.0-9.0) Ur Specific [place] <= 1.005 (1.005-1.025) Urine Protein Negative (Neg-Trace) mg/dL Urine Glucose (UA) Negative (Negative) mg/dL All other labs normal. Assessment and Plan (1) Difficult Cooper catheter placement: Status: Acute Plan Catheter to remain till patient able to sit on end of bed Procedures Date of Service Date of Service: 07/22/23
[2023-07-22] MEDS: Chlorhexidine Gluc Oral Rinse 15 ML MOUTHWASH BUCCAL ×2 (14:28→21:13)
[2023-07-22] MEDS: propofoL 1,000 MG/100 ML VIAL 31.83 MG IVCONT ×4 (14:28→22:56)
[2023-07-22 14:29] LABS: Anion Gap 16 (12-20); Blood Urea Nitrogen 16 mg/dL (9-16); Calcium 9.6 mg/dL (8.4-10.2); Carbon Dioxide 30 mmol/L (22-29); Chloride 97 mmol/L (96-108); Creatinine Clr Calc Pharmacy 104.6; Estimated Glomerular Filt Rate > 60; Glucose Random 269 mg/dL (60-115); Potassium 5.3 mmol/L (3.3-5.1); Sodium 138 mmol/L (135-145)
[2023-07-22 16:55] LABS: ABG Base Excess 12.4 mmol/L; ABG HCO3 37 mmol/L (22-26); ABG pCO2 47 mmHg (32-45); ABG pO2 83 mmHg (83-108)
[2023-07-22 17:14] LABS: Glucose, Whole Blood 196 mg/dL (60-115)
[2023-07-22] MEDS: Enoxaparin Sodium 40 MG/0.4 ML SYRINGE SUBCUT (19:28)
[2023-07-22 20:02] LABS: ABG Refer to POC result
[2023-07-22 20:02] LABS: ABG Refer to POC result
[2023-07-22 20:02] LABS: ABG Refer to POC result
[2023-07-22] MEDS: Midazolam HCl/PF 2 MG/2 ML VIAL 4 MG IVPUSH ×2 (21:25→23:16)
[2023-07-22 23:54] LABS: Glucose, Whole Blood 156 mg/dL (60-115)
[2023-07-23] VITALS (37 sets, daily range): BP systolic 94–137; BP diastolic 59–85; PULSE 69–96; RESP 14–18; TEMP 33.6–38.2; O2SAT 88–96; BMI 33.6
[2023-07-23] MEDS: propofoL 1,000 MG/100 ML VIAL 31.83 MG IVCONT ×9 (01:16→23:24)
[2023-07-23] MEDS: Norepinephrine Bitartrate/D5W 8 MG/250 ML PLAST..BAG 11.94 MG IV (01:23)
[2023-07-23] MEDS: Midazolam HCl/PF 2 MG/2 ML VIAL 4 MG IVPUSH ×8 (02:09→23:58)
[2023-07-23 05:39] LABS: VBG Base Excess 12.7 mmol/L; VBG HCO3 37 mmol/L (22-26); VBG pCO2 47 mmHg; VBG pO2 64 mmHg
[2023-07-23 05:42] LABS: Venous Blood Gas Refer to POC result
[2023-07-23 05:56] LABS: Glucose, Whole Blood 173 mg/dL (60-115)
[2023-07-23] MEDS: Omeprazole/Na Bicarb Oral Susp 20 MG/10 ML UD Cup 40 MG PO (06:06)
[2023-07-23] MEDS: Insulin Lispro 100 UNIT/ML 3 ML VIAL SUBCUT (06:06)
[2023-07-23 06:07] LABS: MANUAL DIFF FLAG NO
[2023-07-23 06:11] LABS: Basophils Absolute Auto 0.1 X10*3/uL (0.0-0.2); Basophils Percent Auto 0.3 % (0-2); Eosinophils Percent Auto 0.2 % (0-4); Hematocrit 39.1 % (42.0-52.0); Hemoglobin 13.3 g/dl (14.0-18.0); Imm Gran Abs Auto 0.08 X10*3/uL (0.00-0.03); Imm Gran Pct Auto 0.5 % (0.0-0.4); Lymphocytes Absolute Auto 2.9 X10*3/uL (1.2-4.9); Lymphocytes Percent Auto 17.4 % (20-40); Mean Corpuscular Hemoglobin 30.9 pg (27.0-33.0); Mean Corpuscular Volume 90.7 fL (80.0-98.0); Mean Platelet Volume 10.5 fL (9.4-12.4); Monocytes Percent Auto 6.2 % (2-11); Neutrophils Absolute Auto 12.4 x10*3/uL (2.0-8.3); Neutrophils Percent Auto 75.4 % (45-73); Platelet Count 210 X10*3/uL (160-400); Red Blood Count 4.31 X10*6/uL (4.60-5.80); Red Cell Distribution Width 13.9 % (11.0-16.0); White Blood Count 16.4 X10*3/uL (4.8-10.8)
[2023-07-23 06:37] LABS: Albumin Level 3.5 g/dL (3.5-5.0); Anion Gap 14 (12-20); Blood Urea Nitrogen 15 mg/dL (9-16); Calcium 9.2 mg/dL (8.4-10.2); Carbon Dioxide 31 mmol/L (22-29); Chloride 98 mmol/L (96-108); Creatinine Clr Calc Pharmacy 121.3; Estimated Glomerular Filt Rate > 60; Glucose Random 160 mg/dL (60-115); Phosphorus 1.8 mg/dL (2.7-4.5); Potassium 3.8 mmol/L (3.3-5.1); Sodium 139 mmol/L (135-145)
[2023-07-23] MEDS: Potassium Phosphate/NS 15 MMOL/250 ML PLAST..BAG 62.5 MMOL IV (07:22)
[2023-07-23] MEDS: Chlorhexidine Gluc Oral Rinse 15 ML MOUTHWASH BUCCAL ×3 (07:24→20:13)
[2023-07-23] MEDS: 0.9 % Sodium Chloride Flush 3 ML SYRINGE IVFLUSH ×3 (07:24→20:46)
--- NOTE | 2023-07-23 07:52 | P.PNCC_ITS ---
Subjective Subjective Date of Service: 07/23/23 Interval History: no significant overnight events Critical Care Time (minutes): 90 Physical Exam 2 Vital Signs: Vital Signs: Last Vital Signs Temp 99.1 F 07/23/23 07:00 Pulse 81 07/23/23 07:00 Resp 16 07/23/23 07:00 BP 109/69 07/23/23 07:00 Pulse Ox 92 07/23/23 07:00 O2 Del Method Mechanical Ventil ation 07/23/23 07:00 O2 Flow Rate 2 07/21/23 07:40 FiO2 40 07/23/23 07:36 BMI result Body Mass Index 33.6 Const: Other: intubated, sedated General: comfortable, no acute distress and well developed HEENT: Head: Yes normal to inspection, Yes normocephalic and Yes atraumatic Eyes: General: appearance normal, both eyes and all related structures Neck: Neck: Yes normal visual inspection, Yes full ROM, Yes trachea midline and Yes supple Chest: Chest palpation & inspection: normal inspection of the chest Resp: Other: no appreciable rales, rhonchi, wheezing Effort & Inspection: normal respiratory effort Cardio: Rate: regular rate Rhythm: regular rhythm GI: Inspection: Yes normal to inspection, No Abdominal wall edema and No distended Palpation (GI): Soft to palpation, not firm, nontender, no guarding and not rigid : Male General Exam: Yes normal external exam Skin: General skin exam: no rashes or lesions noted Neuro: Other: grimaces to minimal tactile stimulus General: tone normal, moves all extremities and no focal motor deficits Extrem: General: Yes normal to inspection, Yes capillary refill normal and Yes no clubbing, cyanosis or edema Psych: Other: unable to assess Objective Data Labs 07/23/23 05:26 07/23/23 05:26 Labs: Laboratory Results - last 24 hr 07/22/23 07/22/23 07/22/23 09:32 10:12 10:25 WBC 21.9 H RBC 4.79 Hgb 15.0 Hct 45.9 MCV 95.8 D MCH 31.3 MCHC 32.7 RDW 14.6 Plt Count 238 MPV 10.7 Immature Gran % (Auto) 0.6 H Neut % (Auto) 89.0 H Lymph % (Auto) 3.6 L [place] % (Auto) 6.3 Eos % (Auto) 0.0 Baso % (Auto) 0.5 Lymph # (Auto) 0.8 L [place] # (Auto) 1.4 H Eos # (Auto) 0.0 Baso # (Auto) 0.1 Abs Immat Gran (auto) 0.13 H Absolute Neuts (auto) 19.5 H Absolute Nucleated RBC 0.000 Nucleated RBC % (auto) 0.0 O2 Saturation 100.0 ABG pH at Pt Temp 7.12 L* ABG pCO2 at Pt Temp 110 H* ABG pO2 at Pt Temp 139 H ABG HCO3 36 H ABG Base Excess (Actual) 2.3 VBG pH VBG pCO2 VBG pO2 VBG HCO3 VBG O2 Saturation VBG Base Excess Sodium Potassium Chloride Carbon Dioxide Anion Gap BUN Creatinine Estim Creat Clear Calc Estimated GFR POC Glucose 251 H Random Glucose Calcium Phosphorus Magnesium Total Bilirubin AST ALT Alkaline Phosphatase Total Protein Albumin 07/22/23 07/22/23 07/22/23 11:04 11:38 11:55 WBC RBC Hgb Hct MCV MCH MCHC RDW Plt Count MPV Immature Gran % (Auto) Neut % (Auto) Lymph % (Auto) [place] % (Auto) Eos % (Auto) Baso % (Auto) Lymph # (Auto) [place] # (Auto) Eos # (Auto) Baso # (Auto) Abs Immat Gran (auto) Absolute Neuts (auto) Absolute Nucleated RBC Nucleated RBC % (auto) O2 Saturation 100.0 ABG pH at Pt Temp 7.29 L ABG pCO2 at Pt Temp 71 H* ABG pO2 at Pt Temp 114 H ABG HCO3 34 H ABG Base Excess (Actual) 5.6 VBG pH VBG pCO2 VBG pO2 VBG HCO3 VBG O2 Saturation VBG Base Excess Sodium 141 Potassium 6.6 H* D Chloride 95 L Carbon Dioxide 32 H Anion Gap 21 H BUN 15 Creatinine 0.95 Estim Creat Clear Calc 95.8 Estimated GFR > 60 POC Glucose 242 H Random Glucose 264 H Calcium 9.7 Phosphorus 4.8 H Magnesium 2.1 Total Bilirubin 0.3 AST 25 ALT 20 Alkaline Phosphatase 67 Total Protein 7.9 Albumin 4.1 07/22/23 07/22/23 07/22/23 13:46 16:46 17:06 WBC RBC Hgb Hct MCV MCH MCHC RDW Plt Count MPV Immature Gran % (Auto) Neut % (Auto) Lymph % (Auto) [place] % (Auto) Eos % (Auto) Baso % (Auto) Lymph # (Auto) [place] # (Auto) Eos # (Auto) Baso # (Auto) Abs Immat Gran (auto) Absolute Neuts (auto) Absolute Nucleated RBC Nucleated RBC % (auto) O2 Saturation 99.0 ABG pH at Pt Temp 7.50 H ABG pCO2 at Pt Temp 47 H ABG pO2 at Pt Temp 83 ABG HCO3 37 H ABG Base Excess (Actual) 12.4 VBG pH VBG pCO2 VBG pO2 VBG HCO3 VBG O2 Saturation VBG Base Excess Sodium 138 Potassium 5.3 H Chloride 97 Carbon Dioxide 30 H Anion Gap 16 BUN 16 Creatinine 0.87 Estim Creat Clear Calc 104.6 Estimated GFR > 60 POC Glucose 196 H Random Glucose 269 H Calcium 9.6 Phosphorus Magnesium Total Bilirubin AST ALT Alkaline Phosphatase Total Protein Albumin 07/22/23 07/23/23 07/23/23 23:50 05:26 05:29 WBC 16.4 H RBC 4.31 L Hgb 13.3 L Hct 39.1 L MCV 90.7 D MCH 30.9 MCHC 34.0 RDW 13.9 Plt Count 210 MPV 10.5 Immature Gran % (Auto) 0.5 H Neut % (Auto) 75.4 H Lymph % (Auto) 17.4 L [place] % (Auto) 6.2 Eos % (Auto) 0.2 Baso % (Auto) 0.3 Lymph # (Auto) 2.9 [place] # (Auto) 1.0 Eos # (Auto) 0.0 Baso # (Auto) 0.1 Abs Immat Gran (auto) 0.08 H Absolute Neuts (auto) 12.4 H Absolute Nucleated RBC 0.000 Nucleated RBC % (auto) 0.0 O2 Saturation ABG pH at Pt Temp ABG pCO2 at Pt Temp ABG pO2 at Pt Temp ABG HCO3 ABG Base Excess (Actual) VBG pH 7.50 H VBG pCO2 47 VBG pO2 64 VBG HCO3 37 H VBG O2 Saturation 96.0 VBG Base Excess 12.7 Sodium 139 Potassium 3.8 D Chloride 98 Carbon Dioxide 31 H Anion Gap 14 BUN 15 Creatinine 0.75 Estim Creat Clear Calc 121.3 Estimated GFR > 60 POC Glucose 156 H Random Glucose 160 H Calcium 9.2 Phosphorus 1.8 L Magnesium 2.0 Total Bilirubin AST ALT Alkaline Phosphatase Total Protein Albumin 3.5 07/23/23 05:53 WBC RBC Hgb Hct MCV MCH MCHC RDW Plt Count MPV Immature Gran % (Auto) Neut % (Auto) Lymph % (Auto) [place] % (Auto) Eos % (Auto) Baso % (Auto) Lymph # (Auto) [place] # (Auto) Eos # (Auto) Baso # (Auto) Abs Immat Gran (auto) Absolute Neuts (auto) Absolute Nucleated RBC Nucleated RBC % (auto) O2 Saturation ABG pH at Pt Temp ABG pCO2 at Pt Temp ABG pO2 at Pt Temp ABG HCO3 ABG Base Excess (Actual) VBG pH VBG pCO2 VBG pO2 VBG HCO3 VBG O2 Saturation VBG Base Excess Sodium Potassium Chloride Carbon Dioxide Anion Gap BUN Creatinine Estim Creat Clear Calc Estimated GFR POC Glucose 173 H Random Glucose Calcium Phosphorus Magnesium Total Bilirubin AST ALT Alkaline Phosphatase Total Protein Albumin Progress Note: A&P Assessment and plan (1) Pulmonary aspiration: Status: Acute (2) Acute hypoxemic respiratory failure: Status: Acute (3) Hypertension: Status: Acute (4) Diabetes: Status: Acute (5) Alcohol withdrawal syndrome: Status: Acute Plan Patient is a 62 Y M with alcohol misuse, prior opioid misuse, on suboxone, metabolic syndrome, initially presenting to emergency department on 07/16 w/ alcohol withdrawal, admitted medicine; hospital course c/b aspiration on 07/21 c/b acute hypoxic respiratory failure, intubated N: intubated, sedated w/ propofol gtt; wean as tolerated CV: hypotension, likely d/t sedation; norepinephrine gtt as needed R: aspiration c/b acute hypoxic respiratory failure, intubated 07/21; wean as tolerated GI: NPO : no acute issues H: no acute issues ID: c/f aspiration, levofloxacin E: diabetes mellitus; to monitor glucose P: alcohol misuse Quality Stroke Does the patient have a stroke diagnosis?: No VTE Prior VTE?: No VTE Risk Level:: Medical - moderate - high VTE Device Contraindication: Treatment Not Indicated VTE Drug Contraindication: N/A - Med Ordered
[2023-07-23] MEDS: Sodium,Potassium Phosphates POWD.PACK 2 PACKET PO (09:44)
--- NOTE | 2023-07-23 11:26 | MHC.CM.PN ---
Pt had an unresponsive episode 07/21: intubated and requiring sedation for ETOH w/d management. Plans for today include continued sedation for another day and then attempt sedation weaning. CM to follow.
[2023-07-23 12:09] LABS: Glucose, Whole Blood 142 mg/dL (60-115)
[2023-07-23] MEDS: levoFLOXacin/D5W 750 MG/150 ML PIGGYBACK 100 MG IV (12:28)
[2023-07-23 17:38] LABS: Glucose, Whole Blood 122 mg/dL (60-115)
[2023-07-23] MEDS: Furosemide 20 MG/2 ML VIAL 10 MG IVPUSH (18:32)
[2023-07-23] MEDS: Enoxaparin Sodium 40 MG/0.4 ML SYRINGE SUBCUT (20:13)
[2023-07-23 23:59] LABS: Glucose, Whole Blood 132 mg/dL (60-115)
[2023-07-24] VITALS (33 sets, daily range): BP systolic 99–136; BP diastolic 62–91; PULSE 16–96; RESP 13–18; TEMP 33.1–37.4; O2SAT 89–97
[2023-07-24] MEDS: propofoL 1,000 MG/100 ML VIAL 31.83 MG IVCONT ×9 (02:02→23:15)
[2023-07-24] MEDS: Midazolam HCl/PF 2 MG/2 ML VIAL 4 MG IVPUSH ×8 (02:18→19:13)
[2023-07-24 05:35] LABS: VBG Base Excess 7.3 mmol/L; VBG HCO3 30 mmol/L (22-26); VBG pCO2 36 mmHg; VBG pH 7.52 (7.32-7.43); VBG pO2 76 mmHg
[2023-07-24 05:37] LABS: Venous Blood Gas Refer to POC result
[2023-07-24 05:47] LABS: MANUAL DIFF FLAG NO
[2023-07-24 05:50] LABS: Basophils Absolute Auto 0.1 X10*3/uL (0.0-0.2); Basophils Percent Auto 0.6 % (0-2); Eosinophils Absolute Auto 0.2 X10*3/uL (0.0-0.4); Eosinophils Percent Auto 1.5 % (0-4); Hematocrit 39.5 % (42.0-52.0); Hemoglobin 13.6 g/dl (14.0-18.0); Imm Gran Abs Auto 0.03 X10*3/uL (0.00-0.03); Imm Gran Pct Auto 0.3 % (0.0-0.4); Lymphocytes Absolute Auto 2.9 X10*3/uL (1.2-4.9); Lymphocytes Percent Auto 27.4 % (20-40); Mean Corpuscular HGB Conc 34.4 g/dl (31.0-36.0); Mean Corpuscular Hemoglobin 30.8 pg (27.0-33.0); Mean Corpuscular Volume 89.4 fL (80.0-98.0); Mean Platelet Volume 10.1 fL (9.4-12.4); Monocytes Absolute Auto 0.7 X10*3/uL (0.1-1.2); Monocytes Percent Auto 6.7 % (2-11); Neutrophils Absolute Auto 6.8 x10*3/uL (2.0-8.3); Neutrophils Percent Auto 63.5 % (45-73); Platelet Count 198 X10*3/uL (160-400); Red Blood Count 4.42 X10*6/uL (4.60-5.80); Red Cell Distribution Width 14.4 % (11.0-16.0); White Blood Count 10.7 X10*3/uL (4.8-10.8)
[2023-07-24 06:05] LABS: Albumin Level 3.4 g/dL (3.5-5.0); Anion Gap 17 (12-20); Blood Urea Nitrogen 16 mg/dL (9-16); Calcium 9.1 mg/dL (8.4-10.2); Carbon Dioxide 27 mmol/L (22-29); Chloride 99 mmol/L (96-108); Creatinine Clr Calc Pharmacy 118.2; Estimated Glomerular Filt Rate > 60; Glucose Random 127 mg/dL (60-115); Magnesium 1.9 mg/dL (1.6-2.6); Phosphorus 2.9 mg/dL (2.7-4.5); Potassium 3.5 mmol/L (3.3-5.1); Sodium 139 mmol/L (135-145)
[2023-07-24] MEDS: Omeprazole/Na Bicarb Oral Susp 20 MG/10 ML UD Cup 40 MG PO (06:12)
[2023-07-24 06:36] LABS: Glucose, Whole Blood 135 mg/dL (60-115)
[2023-07-24] MEDS: Chlorhexidine Gluc Oral Rinse 15 ML MOUTHWASH BUCCAL ×3 (07:43→20:28)
[2023-07-24] MEDS: Furosemide 40 MG/4 ML VIAL IVPUSH (08:46)
[2023-07-24] MEDS: 0.9 % Sodium Chloride Flush 3 ML SYRINGE IVFLUSH ×2 (08:47→14:37)
[2023-07-24] MEDS: Potassium Chloride Packet 20 MEQ PACKET 60 MEQ PO (08:47)
--- NOTE | 2023-07-24 09:20 | MHC.CLN ---
F/U PT REMAINS INTUBATED AND SEDATED REMAINS NPO IF TF NEEDED; RECOMMEND GLUCERNA AT MAX GOAL RATE 50ML/HR TO PROVIDE 1200KCALS (2040KCALS WITH SEDATION; 23KCALS/KG BASED ON CMW), 50G PROTEIN (.6G/KG), 1024ML FREE WATER FROM FORMULA MONITOR TOLERANCE, RESIDUALS AND LYTES FOLLOWING FOR DIET ADVANCEMENT
--- NOTE | 2023-07-24 09:24 | MHC.CM.PN ---
EMR REVIEWED, PT REMAINS ON MECH VENT W/PROP CURRENTLY AT 60%, PER ICU ROUNDS PLAN TO WEAN TO 40% TODAY, NO PLAN FOR DC AT THIS TIME, CM WILL CONT TO FOLLOW DC NEEDS.
--- NOTE | 2023-07-24 09:34 | P.PNCC_ITS ---
Subjective Subjective Date of Service: 07/24/23 Interval History: 62-year-old gentleman with underlying all abuse with prior episodes of alcohol withdrawal, history of opiate dependence on Suboxone, diabetes mellitus, depression, hypertension admitted on 07/17/2023 with alcohol withdrawal in treated with phenobarbital alcohol withdrawal protocol on 07/22/2023 patient with an aspiration event requiring intubation with ventilatory support and transfer to intensive care unit. Events overnight. FiO2 requirements are slowly improving. Critical Care Time (minutes): 60 Physical Exam 2 Vital Signs: Vital Signs: Last Vital Signs Temp 98.4 F 07/24/23 09:00 Pulse 77 07/24/23 09:00 Resp 16 07/24/23 09:00 BP 117/75 07/24/23 09:00 Pulse Ox 92 07/24/23 09:00 O2 Del Method Mechanical Ventil ation 07/24/23 09:00 O2 Flow Rate 2 07/21/23 07:40 FiO2 60 07/24/23 09:00 BMI result Body Mass Index 33.6 Const: General: no acute distress and other (Sedated on the vent) Eyes: Sclerae: sclerae normal EOM: EOMs intact bilaterally Neck: Neck: Yes no lymphadenopathy, Yes trachea midline and Yes supple Resp: Auscultation: crackles (Bilateral) Cardio: Rate: regular rate Rhythm: regular rhythm Heart sounds: no gallops, no murmurs and no rubs GI: Palpation (GI): Soft to palpation and Other GI palpation findings present ( Nontender) Auscultation: normal bowel sounds Extrem: General: Yes no pedal edema, No clubbing and No cyanosis Objective Data Labs 07/24/23 05:29 07/24/23 05:29 Labs: Laboratory Results - last 24 hr 07/23/23 07/23/23 07/23/23 12:06 17:34 23:56 WBC RBC Hgb Hct MCV MCH MCHC RDW Plt Count MPV Immature Gran % (Auto) Neut % (Auto) Lymph % (Auto) [place] % (Auto) Eos % (Auto) Baso % (Auto) Lymph # (Auto) [place] # (Auto) Eos # (Auto) Baso # (Auto) Abs Immat Gran (auto) Absolute Neuts (auto) Absolute Nucleated RBC Nucleated RBC % (auto) VBG pH VBG pCO2 VBG pO2 VBG HCO3 VBG O2 Saturation VBG Base Excess Sodium Potassium Chloride Carbon Dioxide Anion Gap BUN Creatinine Estim Creat Clear Calc Estimated GFR POC Glucose 142 H 122 H 132 H Random Glucose Calcium Phosphorus Magnesium Albumin 07/24/23 07/24/23 07/24/23 05:27 05:29 06:33 WBC 10.7 RBC 4.42 L Hgb 13.6 L Hct 39.5 L MCV 89.4 MCH 30.8 MCHC 34.4 RDW 14.4 Plt Count 198 MPV 10.1 Immature Gran % (Auto) 0.3 Neut % (Auto) 63.5 Lymph % (Auto) 27.4 [place] % (Auto) 6.7 Eos % (Auto) 1.5 Baso % (Auto) 0.6 Lymph # (Auto) 2.9 [place] # (Auto) 0.7 Eos # (Auto) 0.2 Baso # (Auto) 0.1 Abs Immat Gran (auto) 0.03 Absolute Neuts (auto) 6.8 Absolute Nucleated RBC 0.000 Nucleated RBC % (auto) 0.0 VBG pH 7.52 H VBG pCO2 36 VBG pO2 76 VBG HCO3 30 H VBG O2 Saturation 97.0 VBG Base Excess 7.3 Sodium 139 Potassium 3.5 Chloride 99 Carbon Dioxide 27 Anion Gap 17 BUN 16 Creatinine 0.77 Estim Creat Clear Calc 118.2 Estimated GFR > 60 POC Glucose 135 H Random Glucose 127 H Calcium 9.1 Phosphorus 2.9 Magnesium 1.9 Albumin 3.4 L Progress Note: A&P Assessment and plan (1) Difficult Mccarthy catheter placement: Status: Acute (2) Pulmonary aspiration: Status: Acute (3) Diabetes: Status: Acute (4) Acute hypoxemic respiratory failure: Status: Acute (5) Alcohol withdrawal syndrome: Status: Acute Plan Assessment: 62-year-old gentleman admitted with alcohol withdrawal syndrome initially treated with phenobarbital protocol on telemetry with hospital course complicated by an aspiration event requiring intubation and transfer to intensive care unit on 07/22/2023 Plan: Neuro: Alcohol withdrawal, continue to titrate off sedative drips as tolerated. Cardiac: No acute issues. Pulmonary: Acute hypoxic respiratory failure secondary to pulmonary aspiration, now requiring ventilatory support, continue to titrate off as tolerated. Renal: No acute issues. Endo: No acute issues. Underlying diabetes mellitus. GI: No acute issues. ID: Empirically covered for pulmonary aspiration. Heme/Onc: No acute issues. Psych: No acute issues. Miscellaneous: No acute issues. Prophylaxis: Heparin, omeprazole Diet: Tube feeds Critical care time spent: 60 minutes Quality Stroke Does the patient have a stroke diagnosis?: No VTE Prior VTE?: No VTE Risk Level:: Medical - moderate - high VTE Device Contraindication: Treatment Not Indicated VTE Drug Contraindication: N/A - Med Ordered
[2023-07-24 11:47] LABS: Glucose, Whole Blood 126 mg/dL (60-115)
[2023-07-24] MEDS: levoFLOXacin/D5W 750 MG/150 ML PIGGYBACK 100 MG IV (11:47)
[2023-07-24 17:32] LABS: Glucose, Whole Blood 113 mg/dL (60-115)
[2023-07-24] MEDS: fentaNYL citrate/PF 100 MCG/2 ML VIAL IVPUSH (20:07)
[2023-07-24] MEDS: dexmedeTOMIDidine HCL/NS 400 MCG/100 ML INFUS..BTL 26.53 MCG IVCONT ×2 (20:08→23:14)
[2023-07-24] MEDS: Enoxaparin Sodium 40 MG/0.4 ML SYRINGE SUBCUT (20:28)
[2023-07-24 23:50] LABS: Glucose, Whole Blood 125 mg/dL (60-115)
[2023-07-25] VITALS (28 sets, daily range): BP systolic 86–171; BP diastolic 07–101; PULSE 51–77; RESP 9–24; TEMP 34.7–37.4; O2SAT 92–96; BMI 33.5
[2023-07-25] MEDS: 0.9 % Sodium Chloride Flush 3 ML SYRINGE IVFLUSH ×3 (00:14→14:30)
[2023-07-25] MEDS: propofoL 1,000 MG/100 ML VIAL 31.83 MG IVCONT ×3 (02:14→08:32)
[2023-07-25] MEDS: dexmedeTOMIDidine HCL/NS 400 MCG/100 ML INFUS..BTL 26.53 MCG IVCONT ×2 (02:54→06:28)
[2023-07-25] MEDS: Midazolam HCl/PF 2 MG/2 ML VIAL 4 MG IVPUSH ×5 (05:26→23:09)
[2023-07-25 05:27] LABS: VBG Base Excess 5.3 mmol/L; VBG HCO3 27 mmol/L (22-26); VBG pCO2 32 mmHg; VBG pH 7.53 (7.32-7.43); VBG pO2 68 mmHg
[2023-07-25] MEDS: Omeprazole/Na Bicarb Oral Susp 20 MG/10 ML UD Cup 40 MG PO (05:32)
[2023-07-25 05:34] LABS: Venous Blood Gas Refer to POC result
[2023-07-25 05:42] LABS: MANUAL DIFF FLAG NO
[2023-07-25 05:45] LABS: Basophils Percent Auto 0.4 % (0-2); Eosinophils Absolute Auto 0.2 X10*3/uL (0.0-0.4); Hematocrit 42.8 % (42.0-52.0); Imm Gran Abs Auto 0.04 X10*3/uL (0.00-0.03); Imm Gran Pct Auto 0.4 % (0.0-0.4); Lymphocytes Absolute Auto 2.7 X10*3/uL (1.2-4.9); Lymphocytes Percent Auto 25.4 % (20-40); Mean Corpuscular Hemoglobin 31.1 pg (27.0-33.0); Mean Corpuscular Volume 88.6 fL (80.0-98.0); Mean Platelet Volume 10.5 fL (9.4-12.4); Monocytes Absolute Auto 0.9 X10*3/uL (0.1-1.2); Monocytes Percent Auto 8.7 % (2-11); Neutrophils Absolute Auto 6.6 x10*3/uL (2.0-8.3); Neutrophils Percent Auto 63.1 % (45-73); Platelet Count 244 X10*3/uL (160-400); Red Blood Count 4.83 X10*6/uL (4.60-5.80); Red Cell Distribution Width 14.3 % (11.0-16.0); White Blood Count 10.5 X10*3/uL (4.8-10.8)
[2023-07-25 06:06] LABS: Albumin Level 3.7 g/dL (3.5-5.0); Anion Gap 19 (12-20); Blood Urea Nitrogen 18 mg/dL (9-16); Calcium 9.5 mg/dL (8.4-10.2); Carbon Dioxide 22 mmol/L (22-29); Chloride 101 mmol/L (96-108); Creatinine Clr Calc Pharmacy 119.7; Estimated Glomerular Filt Rate > 60; Glucose Random 124 mg/dL (60-115); Phosphorus 3.6 mg/dL (2.7-4.5); Potassium 3.6 mmol/L (3.3-5.1); Sodium 138 mmol/L (135-145)
[2023-07-25] MEDS: Potassium Chloride Packet 20 MEQ PACKET 40 MEQ OG-TUBE (06:21)
[2023-07-25] MEDS: Chlorhexidine Gluc Oral Rinse 15 ML MOUTHWASH BUCCAL (07:55)
--- NOTE | 2023-07-25 09:58 | P.PNCC_ITS ---
Subjective Subjective Date of Service: 07/25/23 Interval History: 62-year-old gentleman with underlying all abuse with prior episodes of alcohol withdrawal, history of opiate dependence on Suboxone, diabetes mellitus, depression, hypertension admitted on 07/17/2023 with alcohol withdrawal in treated with phenobarbital alcohol withdrawal protocol on 07/22/2023 patient with an aspiration event requiring intubation with ventilatory support and transfer to intensive care unit. No events overnight. FiO2 requirements improved significantly. Critical Care Time (minutes): 60 Physical Exam 2 Vital Signs: Vital Signs: Last Vital Signs Temp 98.4 F 07/25/23 08:58 Pulse 58 07/25/23 08:58 Resp 16 07/25/23 08:58 BP 122/82 07/25/23 08:58 Pulse Ox 94 07/25/23 08:58 O2 Del Method Mechanical Ventil ation 07/25/23 08:58 O2 Flow Rate 2 07/21/23 07:40 FiO2 40 07/25/23 08:58 BMI result Body Mass Index 33.5 Const: General: no acute distress and other (Sedated on the vent, follows commands with sedation vacation.) Eyes: Sclerae: sclerae normal EOM: EOMs intact bilaterally Neck: Neck: Yes no lymphadenopathy, Yes trachea midline and Yes supple Resp: Effort & Inspection: normal respiratory effort and no respiratory distress Auscultation: clear to auscultation bilaterally Cardio: Rate: regular rate Rhythm: regular rhythm Heart sounds: no gallops, no murmurs and no rubs GI: Palpation (GI): Soft to palpation and Other GI palpation findings present ( Nontender) Auscultation: normal bowel sounds Extrem: General: Yes no pedal edema, No clubbing and No cyanosis Objective Data Labs 07/25/23 05:13 07/25/23 05:13 Labs: Laboratory Results - last 24 hr 07/24/23 07/24/23 07/24/23 11:43 17:28 23:46 WBC RBC Hgb Hct MCV MCH MCHC RDW Plt Count MPV Immature Gran % (Auto) Neut % (Auto) Lymph % (Auto) [place] % (Auto) Eos % (Auto) Baso % (Auto) Lymph # (Auto) [place] # (Auto) Eos # (Auto) Baso # (Auto) Abs Immat Gran (auto) Absolute Neuts (auto) Absolute Nucleated RBC Nucleated RBC % (auto) VBG pH VBG pCO2 VBG pO2 VBG HCO3 VBG O2 Saturation VBG Base Excess Sodium Potassium Chloride Carbon Dioxide Anion Gap BUN Creatinine Estim Creat Clear Calc Estimated GFR POC Glucose 126 H 113 125 H Random Glucose Calcium Phosphorus Magnesium Albumin 07/25/23 07/25/23 05:13 05:18 WBC 10.5 RBC 4.83 Hgb 15.0 Hct 42.8 MCV 88.6 MCH 31.1 MCHC 35.0 RDW 14.3 Plt Count 244 MPV 10.5 Immature Gran % (Auto) 0.4 Neut % (Auto) 63.1 Lymph % (Auto) 25.4 [place] % (Auto) 8.7 Eos % (Auto) 2.0 Baso % (Auto) 0.4 Lymph # (Auto) 2.7 [place] # (Auto) 0.9 Eos # (Auto) 0.2 Baso # (Auto) 0.0 Abs Immat Gran (auto) 0.04 H Absolute Neuts (auto) 6.6 Absolute Nucleated RBC 0.000 Nucleated RBC % (auto) 0.0 VBG pH 7.53 H VBG pCO2 32 VBG pO2 68 VBG HCO3 27 H VBG O2 Saturation 94.0 VBG Base Excess 5.3 Sodium 138 Potassium 3.6 Chloride 101 Carbon Dioxide 22 Anion Gap 19 BUN 18 H Creatinine 0.76 Estim Creat Clear Calc 119.7 Estimated GFR > 60 POC Glucose Random Glucose 124 H Calcium 9.5 Phosphorus 3.6 Magnesium 2.0 Albumin 3.7 Progress Note: A&P Assessment and plan (1) Difficult Mccarthy catheter placement: Status: Acute (2) Pulmonary aspiration: Status: Acute (3) Alcohol withdrawal syndrome: Status: Acute Plan Assessment: 62-year-old gentleman admitted with alcohol withdrawal syndrome initially treated with phenobarbital protocol on telemetry with hospital course complicated by an aspiration event requiring intubation and transfer to intensive care unit on 07/22/2023 Plan: Neuro: Alcohol withdrawal, continue to titrate off sedative drips as tolerated. Cardiac: No acute issues. Pulmonary: Acute hypoxic respiratory failure secondary to pulmonary aspiration, now requiring ventilatory support, continue to titrate off as tolerated. Renal: No acute issues. Endo: No acute issues. Underlying diabetes mellitus. GI: No acute issues. ID: Empirically covered for pulmonary aspiration. Heme/Onc: No acute issues. Psych: No acute issues. Miscellaneous: No acute issues. Prophylaxis: Heparin, omeprazole Diet: Tube feeds Critical care time spent: 60 minutes Quality Stroke Does the patient have a stroke diagnosis?: No VTE Prior VTE?: No VTE Risk Level:: Medical - moderate - high VTE Device Contraindication: Treatment Not Indicated VTE Drug Contraindication: N/A - Med Ordered
[2023-07-25] MEDS: dexmedeTOMIDidine HCL/NS 400 MCG/100 ML INFUS..BTL 37.14 MCG IVCONT (10:10)
[2023-07-25] MEDS: Midazolam HCl/PF 2 MG/2 ML VIAL IVPUSH ×2 (11:00→14:30)
[2023-07-25 11:19] LABS: Glucose, Whole Blood 137 mg/dL (60-115)
[2023-07-25] MEDS: levoFLOXacin/D5W 750 MG/150 ML PIGGYBACK 100 MG IV (11:36)
[2023-07-25] MEDS: dexmedeTOMIDidine HCL/NS 400 MCG/100 ML INFUS..BTL 39.79 MCG IVCONT ×5 (12:44→22:35)
[2023-07-25 17:41] LABS: Glucose, Whole Blood 137 mg/dL (60-115)
[2023-07-26] VITALS (32 sets, daily range): BP systolic 86–174; BP diastolic 49–104; PULSE 55–79; RESP 12–28; TEMP 36.4–37.7; O2SAT 92–97; BMI 33.5
[2023-07-26 01:03] LABS: Glucose, Whole Blood 158 mg/dL (60-115)
[2023-07-26] MEDS: dexmedeTOMIDidine HCL/NS 400 MCG/100 ML INFUS..BTL 39.79 MCG IVCONT ×5 (01:06→10:47)
[2023-07-26] MEDS: Midazolam HCl/PF 2 MG/2 ML VIAL 4 MG IVPUSH ×4 (01:24→19:56)
[2023-07-26 04:39] LABS: VBG Base Excess 1.2 mmol/L; VBG HCO3 24 mmol/L (22-26); VBG pCO2 32 mmHg; VBG pH 7.47 (7.32-7.43); VBG pO2 54 mmHg
[2023-07-26 04:44] LABS: Venous Blood Gas Refer to POC result
[2023-07-26 05:05] LABS: MANUAL DIFF FLAG NO
[2023-07-26 05:07] LABS: Basophils Percent Auto 0.4 % (0-2); Eosinophils Absolute Auto 0.2 X10*3/uL (0.0-0.4); Eosinophils Percent Auto 1.5 % (0-4); Hematocrit 40.7 % (42.0-52.0); Hemoglobin 14.3 g/dl (14.0-18.0); Imm Gran Abs Auto 0.04 X10*3/uL (0.00-0.03); Imm Gran Pct Auto 0.4 % (0.0-0.4); Lymphocytes Absolute Auto 2.2 X10*3/uL (1.2-4.9); Lymphocytes Percent Auto 22.4 % (20-40); Mean Corpuscular HGB Conc 35.1 g/dl (31.0-36.0); Mean Corpuscular Hemoglobin 30.3 pg (27.0-33.0); Mean Corpuscular Volume 86.2 fL (80.0-98.0); Mean Platelet Volume 10.5 fL (9.4-12.4); Monocytes Absolute Auto 1.1 X10*3/uL (0.1-1.2); Monocytes Percent Auto 10.6 % (2-11); Neutrophils Absolute Auto 6.4 x10*3/uL (2.0-8.3); Neutrophils Percent Auto 64.7 % (45-73); Platelet Count 243 X10*3/uL (160-400); Red Blood Count 4.72 X10*6/uL (4.60-5.80)
[2023-07-26 05:25] LABS: Alanine Aminotransferase 17 U/L (0-40); Albumin Level 3.6 g/dL (3.5-5.0); Alkaline Phosphatase 57 U/L (39-117); Anion Gap 16 (12-20); Aspartate Amino Transferase 21 U/L (5-37); Bilirubin Total 0.6 mg/dL (0.0-1.0); Blood Urea Nitrogen 12 mg/dL (9-16); Calcium 9.4 mg/dL (8.4-10.2); Carbon Dioxide 21 mmol/L (22-29); Chloride 102 mmol/L (96-108); Creatinine Clr Calc Pharmacy 118.1; Estimated Glomerular Filt Rate > 60; Glucose Random 172 mg/dL (60-115); Magnesium 1.7 mg/dL (1.6-2.6); Phosphorus 2.9 mg/dL (2.7-4.5); Potassium 3.3 mmol/L (3.3-5.1); Sodium 136 mmol/L (135-145); Total Protein 6.9 g/dL (6.5-8.0)
[2023-07-26] MEDS: Furosemide 40 MG/4 ML VIAL IVPUSH (08:21)
[2023-07-26] MEDS: lamoTRIgine 25 MG TABLET 50 MG PO ×2 (08:27→20:17)
[2023-07-26] MEDS: busPIRone HCl 5 MG TABLET PO ×2 (08:27→20:17)
[2023-07-26] MEDS: Gabapentin 400 MG CAPSULE 1200 MG PO ×3 (08:27→20:17)
[2023-07-26] MEDS: Potassium Chloride Packet 20 MEQ PACKET 40 MEQ PO (08:28)
[2023-07-26] MEDS: Acetaminophen 325 MG TABLET 650 MG PO (09:39)
--- NOTE | 2023-07-26 10:22 | P.PNCC_ITS ---
Subjective Subjective Date of Service: 07/26/23 Interval History: 62-year-old gentleman with underlying all abuse with prior episodes of alcohol withdrawal, history of opiate dependence on Suboxone, diabetes mellitus, depression, hypertension admitted on 07/17/2023 with alcohol withdrawal in treated with phenobarbital alcohol withdrawal protocol on 07/22/2023 patient with an aspiration event requiring intubation with ventilatory support and transfer to intensive care unit. Abated uneventfully on 07/25/2023. Continued to require Precedex drip. No events overnight. Critical Care Time (minutes): 45 Physical Exam 2 Vital Signs: Vital Signs: Last Vital Signs Temp 98.0 F 07/26/23 08:00 Pulse 67 07/26/23 09:00 Resp 17 07/26/23 09:00 BP 120/81 07/26/23 09:00 Pulse Ox 95 07/26/23 09:00 O2 Del Method Nasal Cannula 07/26/23 09:00 O2 Flow Rate 4 07/26/23 09:00 FiO2 40 07/25/23 08:58 BMI result Body Mass Index 33.5 Const: General: no acute distress, alert and awake Eyes: Sclerae: sclerae normal EOM: EOMs intact bilaterally Neck: Neck: Yes no lymphadenopathy, Yes trachea midline and Yes supple Resp: Effort & Inspection: normal respiratory effort and no respiratory distress Auscultation: clear to auscultation bilaterally Cardio: Rate: regular rate Rhythm: regular rhythm Heart sounds: no gallops, no murmurs and no rubs GI: Palpation (GI): Soft to palpation and Other GI palpation findings present ( Nontender) Auscultation: normal bowel sounds Extrem: General: Yes no pedal edema, No clubbing and No cyanosis Objective Data Labs 07/26/23 04:34 07/26/23 04:34 Labs: Laboratory Results - last 24 hr 07/25/23 07/25/23 07/26/23 11:16 17:35 00:59 WBC RBC Hgb Hct MCV MCH MCHC RDW Plt Count MPV Immature Gran % (Auto) Neut % (Auto) Lymph % (Auto) [place] % (Auto) Eos % (Auto) Baso % (Auto) Lymph # (Auto) [place] # (Auto) Eos # (Auto) Baso # (Auto) Abs Immat Gran (auto) Absolute Neuts (auto) Absolute Nucleated RBC Nucleated RBC % (auto) VBG pH VBG pCO2 VBG pO2 VBG HCO3 VBG O2 Saturation VBG Base Excess Sodium Potassium Chloride Carbon Dioxide Anion Gap BUN Creatinine Estim Creat Clear Calc Estimated GFR POC Glucose 137 H 137 H 158 H Random Glucose Calcium Phosphorus Magnesium Total Bilirubin AST ALT Alkaline Phosphatase Total Protein Albumin 07/26/23 07/26/23 04:31 04:34 WBC 10.0 RBC 4.72 Hgb 14.3 Hct 40.7 L MCV 86.2 MCH 30.3 MCHC 35.1 RDW 13.0 Plt Count 243 MPV 10.5 Immature Gran % (Auto) 0.4 Neut % (Auto) 64.7 Lymph % (Auto) 22.4 [place] % (Auto) 10.6 Eos % (Auto) 1.5 Baso % (Auto) 0.4 Lymph # (Auto) 2.2 [place] # (Auto) 1.1 Eos # (Auto) 0.2 Baso # (Auto) 0.0 Abs Immat Gran (auto) 0.04 H Absolute Neuts (auto) 6.4 Absolute Nucleated RBC 0.000 Nucleated RBC % (auto) 0.0 VBG pH 7.47 H VBG pCO2 32 VBG pO2 54 VBG HCO3 24 VBG O2 Saturation 86.0 VBG Base Excess 1.2 Sodium 136 Potassium 3.3 Chloride 102 Carbon Dioxide 21 L Anion Gap 16 BUN 12 Creatinine 0.77 Estim Creat Clear Calc 118.1 Estimated GFR > 60 POC Glucose Random Glucose 172 H Calcium 9.4 Phosphorus 2.9 Magnesium 1.7 Total Bilirubin 0.6 AST 21 ALT 17 Alkaline Phosphatase 57 Total Protein 6.9 Albumin 3.6 Progress Note: A&P Assessment and plan (1) Difficult Mccarthy catheter placement: Status: Acute (2) Pulmonary aspiration: Status: Acute (3) Diabetes: Status: Acute (4) Acute hypoxemic respiratory failure: Status: Acute (5) Alcohol withdrawal syndrome: Status: Acute Plan Assessment: 62-year-old gentleman admitted with alcohol withdrawal syndrome initially treated with phenobarbital protocol on telemetry with hospital course complicated by an aspiration event requiring intubation and transfer to intensive care unit on 07/22/2023 Plan: Neuro: Alcohol withdrawal, continue to titrate off Precedex as tolerated. Cardiac: No acute issues. Pulmonary: Acute hypoxic respiratory failure secondary to pulmonary aspiration, initially requiring ventilatory support, extubated 07/25/2023. Continue to titrate off supplemental oxygen as tolerated. Renal: No acute issues. Endo: No acute issues. Underlying diabetes mellitus. GI: No acute issues. ID: Empirically covered for pulmonary aspiration. Heme/Onc: No acute issues. Psych: No acute issues. Miscellaneous: No acute issues. Prophylaxis: Heparin Diet: Regular Critical care time spent: 45 minutes Quality Stroke Does the patient have a stroke diagnosis?: No VTE Prior VTE?: No VTE Risk Level:: Medical - moderate - high VTE Device Contraindication: Treatment Not Indicated VTE Drug Contraindication: N/A - Med Ordered
[2023-07-26] MEDS: levoFLOXacin/D5W 750 MG/150 ML PIGGYBACK 100 MG IV (11:59)
[2023-07-26 12:10] LABS: Glucose, Whole Blood 143 mg/dL (60-115)
[2023-07-26] MEDS: dexmedeTOMIDidine HCL/NS 400 MCG/100 ML INFUS..BTL 29.18 MCG IVCONT ×3 (13:56→21:14)
--- NOTE | 2023-07-26 16:14 | MHC.CM.PN ---
EMR REVIEWED AND PER MD ROUNDS, PT TO BE WEANED OFF PRECEDEX. CM WILL CONTINUE TO FOLLOW FOR DC PLANNING
[2023-07-26 17:09] LABS: Glucose, Whole Blood 207 mg/dL (60-115)
[2023-07-26] MEDS: Insulin Lispro 100 UNIT/ML 3 ML VIAL SUBCUT ×2 (17:38→21:51)
[2023-07-26] MEDS: Enoxaparin Sodium 40 MG/0.4 ML SYRINGE SUBCUT (20:17)
[2023-07-26 21:23] LABS: Glucose, Whole Blood 184 mg/dL (60-115)
[2023-07-26] MEDS: Midazolam HCl/PF 2 MG/2 ML VIAL IVPUSH (22:47)
[2023-07-26] MEDS: 0.9 % Sodium Chloride Flush 3 ML SYRINGE IVFLUSH (22:47)
[2023-07-27] VITALS (20 sets, daily range): BP systolic 92–159; BP diastolic 59–101; PULSE 54–121; RESP 12–22; TEMP 36.2–36.9; O2SAT 91–98; BMI 33.1
[2023-07-27] MEDS: dexmedeTOMIDidine HCL/NS 400 MCG/100 ML INFUS..BTL 29.18 MCG IVCONT ×3 (00:31→06:50)
[2023-07-27 01:47] LABS: Glucose, Whole Blood 102 mg/dL (60-115)
[2023-07-27] MEDS: Midazolam HCl/PF 2 MG/2 ML VIAL IVPUSH ×4 (02:15→13:21)
[2023-07-27 04:43] LABS: VBG Base Excess -0.1 mmol/L; VBG HCO3 22 mmol/L (22-26); VBG pCO2 31 mmHg; VBG pH 7.46 (7.32-7.43); VBG pO2 61 mmHg
[2023-07-27 05:01] LABS: MANUAL DIFF FLAG NO
[2023-07-27 05:05] LABS: Basophils Absolute Auto 0.1 X10*3/uL (0.0-0.2); Basophils Percent Auto 0.5 % (0-2); Eosinophils Absolute Auto 0.3 X10*3/uL (0.0-0.4); Eosinophils Percent Auto 2.6 % (0-4); Hematocrit 40.1 % (42.0-52.0); Hemoglobin 13.9 g/dl (14.0-18.0); Imm Gran Abs Auto 0.03 X10*3/uL (0.00-0.03); Imm Gran Pct Auto 0.3 % (0.0-0.4); Lymphocytes Absolute Auto 3.3 X10*3/uL (1.2-4.9); Lymphocytes Percent Auto 34.1 % (20-40); Mean Corpuscular HGB Conc 34.7 g/dl (31.0-36.0); Mean Corpuscular Hemoglobin 30.2 pg (27.0-33.0); Mean Platelet Volume 10.4 fL (9.4-12.4); Monocytes Percent Auto 10.1 % (2-11); Neutrophils Absolute Auto 5.1 x10*3/uL (2.0-8.3); Neutrophils Percent Auto 52.4 % (45-73); Platelet Count 241 X10*3/uL (160-400); Red Blood Count 4.61 X10*6/uL (4.60-5.80); Red Cell Distribution Width 13.2 % (11.0-16.0); White Blood Count 9.7 X10*3/uL (4.8-10.8)
[2023-07-27 05:25] LABS: Alanine Aminotransferase 23 U/L (0-40); Albumin Level 3.5 g/dL (3.5-5.0); Alkaline Phosphatase 53 U/L (39-117); Anion Gap 15 (12-20); Aspartate Amino Transferase 27 U/L (5-37); Bilirubin Total 0.4 mg/dL (0.0-1.0); Blood Urea Nitrogen 13 mg/dL (9-16); Calcium 9.1 mg/dL (8.4-10.2); Carbon Dioxide 20 mmol/L (22-29); Chloride 104 mmol/L (96-108); Creatinine Clr Calc Pharmacy 119.7; Estimated Glomerular Filt Rate > 60; Glucose Random 142 mg/dL (60-115); Magnesium 1.7 mg/dL (1.6-2.6); Phosphorus 3.3 mg/dL (2.7-4.5); Potassium 3.5 mmol/L (3.3-5.1); Sodium 135 mmol/L (135-145); Total Protein 6.8 g/dL (6.5-8.0)
[2023-07-27 05:45] LABS: Venous Blood Gas Refer to POC result
--- NOTE | 2023-07-27 07:07 | PC.NURSE ---
Assumed care of the patient at 22:30. Patient seen in the ICU. Please see shift assessments, tasks, and EMAR for full details. Handoff report given 06:50.
[2023-07-27 07:27] LABS: Glucose, Whole Blood 149 mg/dL (60-115)
[2023-07-27] MEDS: Gabapentin 400 MG CAPSULE 1200 MG PO ×3 (08:12→22:33)
[2023-07-27] MEDS: lamoTRIgine 25 MG TABLET 50 MG PO ×2 (08:12→22:34)
[2023-07-27] MEDS: busPIRone HCl 5 MG TABLET PO ×2 (08:13→22:33)
[2023-07-27] MEDS: Potassium Chloride ER 20 MEQ TAB.ER.PRT 40 MEQ PO (09:25)
[2023-07-27] MEDS: Nicotine Polacrilex 2 MG GUM BUCCAL (09:26)
[2023-07-27] MEDS: fentaNYL citrate/PF 100 MCG/2 ML VIAL 50 MCG IVPUSH (11:09)
[2023-07-27 11:13] LABS: Glucose, Whole Blood 174 mg/dL (60-115)
--- NOTE | 2023-07-27 11:15 | PC.NURSE ---
Addendum entered by Tricia Chisholm RN 07/27/23 15:10: Patient transfered to [facility], due to void by 1700 Original Note: Patient requested to have indwelling catheter taken out due to pain. Per Urology note ok to pull out if patient able to sit up, confirmed with Dr. Alvarado. Verbal order to pull out received, patient was able to sit independently at the side of the bed for breakfast and was able to get up to the commode with one assist. First attempt to pull catheter out met with resistance at the last 1.5inch of catheter, patient communicated severe pain, consulted with provider and after applying lubricant to the tip catheter was pulled out successfully. Patient medicated for pain and ice pack applied to the genitals. Patient educated on voiding trail protocol, urinal provided.
--- NOTE | 2023-07-27 11:44 | PM.CCPN ---
Subjective Subjective Date of Service: 07/27/23 Interval History: 62-year-old gentleman with underlying all abuse with prior episodes of alcohol withdrawal, history of opiate dependence on Suboxone, diabetes mellitus, depression, hypertension admitted on 07/17/2023 with alcohol withdrawal in treated with phenobarbital alcohol withdrawal protocol on 07/22/2023 patient with an aspiration event requiring intubation with ventilatory support and transfer to intensive care unit. Extubated uneventfully on 07/25/2023. No events overnight. Titrated off Precedex drip. Critical Care Time (minutes): 0 Physical Exam Vital Signs: Vital Signs: Last Vital Signs Temp 98.5 F 07/27/23 08:00 Pulse 87 07/27/23 11:00 Resp 20 07/27/23 11:00 BP 122/62 07/27/23 11:00 Pulse Ox 95 07/27/23 11:00 O2 Del Method Nasal Cannula 07/27/23 11:00 O2 Flow Rate 4 07/27/23 11:00 FiO2 40 07/25/23 08:58 BMI result Body Mass Index 33.1 Const: General: no acute distress, alert and awake Eyes: Sclerae: sclerae normal EOM: EOMs intact bilaterally Neck: Neck: Yes no lymphadenopathy, Yes trachea midline and Yes supple Resp: Effort & Inspection: normal respiratory effort and no respiratory distress Auscultation: clear to auscultation bilaterally Cardio: Rate: regular rate Rhythm: regular rhythm Heart sounds: no gallops, no murmurs and no rubs GI: Palpation (GI): Soft to palpation and Other GI palpation findings present ( Nontender) Auscultation: normal bowel sounds Extrem: General: Yes no pedal edema, No clubbing and No cyanosis Objective Data Labs 07/27/23 04:36 07/27/23 04:36 Labs: Laboratory Results - last 24 hr 07/26/23 07/26/23 07/26/23 12:07 17:06 21:20 WBC RBC Hgb Hct MCV MCH MCHC RDW Plt Count MPV Immature Gran % (Auto) Neut % (Auto) Lymph % (Auto) [place] % (Auto) Eos % (Auto) Baso % (Auto) Lymph # (Auto) [place] # (Auto) Eos # (Auto) Baso # (Auto) Abs Immat Gran (auto) Absolute Neuts (auto) Absolute Nucleated RBC Nucleated RBC % (auto) VBG pH VBG pCO2 VBG pO2 VBG HCO3 VBG O2 Saturation VBG Base Excess Sodium Potassium Chloride Carbon Dioxide Anion Gap BUN Creatinine Estim Creat Clear Calc Estimated GFR POC Glucose 143 H 207 H 184 H Random Glucose Calcium Phosphorus Magnesium Total Bilirubin AST ALT Alkaline Phosphatase Total Protein Albumin 07/26/23 07/27/23 07/27/23 23:58 04:34 04:36 WBC 9.7 RBC 4.61 Hgb 13.9 L Hct 40.1 L MCV 87.0 MCH 30.2 MCHC 34.7 RDW 13.2 Plt Count 241 MPV 10.4 Immature Gran % (Auto) 0.3 Neut % (Auto) 52.4 Lymph % (Auto) 34.1 [place] % (Auto) 10.1 Eos % (Auto) 2.6 Baso % (Auto) 0.5 Lymph # (Auto) 3.3 [place] # (Auto) 1.0 Eos # (Auto) 0.3 Baso # (Auto) 0.1 Abs Immat Gran (auto) 0.03 Absolute Neuts (auto) 5.1 Absolute Nucleated RBC 0.000 Nucleated RBC % (auto) 0.0 VBG pH 7.46 H VBG pCO2 31 VBG pO2 61 VBG HCO3 22 VBG O2 Saturation 91.0 VBG Base Excess -0.1 Sodium 135 Potassium 3.5 Chloride 104 Carbon Dioxide 20 L Anion Gap 15 BUN 13 Creatinine 0.76 Estim Creat Clear Calc 119.7 Estimated GFR > 60 POC Glucose 102 Random Glucose 142 H Calcium 9.1 Phosphorus 3.3 Magnesium 1.7 Total Bilirubin 0.4 AST 27 ALT 23 Alkaline Phosphatase 53 Total Protein 6.8 Albumin 3.5 07/27/23 07/27/23 07:24 11:11 WBC RBC Hgb Hct MCV MCH MCHC RDW Plt Count MPV Immature Gran % (Auto) Neut % (Auto) Lymph % (Auto) [place] % (Auto) Eos % (Auto) Baso % (Auto) Lymph # (Auto) [place] # (Auto) Eos # (Auto) Baso # (Auto) Abs Immat Gran (auto) Absolute Neuts (auto) Absolute Nucleated RBC Nucleated RBC % (auto) VBG pH VBG pCO2 VBG pO2 VBG HCO3 VBG O2 Saturation VBG Base Excess Sodium Potassium Chloride Carbon Dioxide Anion Gap BUN Creatinine Estim Creat Clear Calc Estimated GFR POC Glucose 149 H 174 H Random Glucose Calcium Phosphorus Magnesium Total Bilirubin AST ALT Alkaline Phosphatase Total Protein Albumin Progress Note: A&P Assessment and plan (1) Difficult Mccarthy catheter placement: Status: Acute (2) Pulmonary aspiration: Status: Acute (3) Diabetes: Status: Acute (4) Alcohol withdrawal syndrome: Status: Acute Plan Assessment: 62-year-old gentleman admitted with alcohol withdrawal syndrome initially treated with phenobarbital protocol on telemetry with hospital course complicated by an aspiration event requiring intubation and transfer to intensive care unit on 07/22/2023 Plan: Neuro: Alcohol withdrawal, improved, titrated off Precedex. Continue phenobarbital protocol. Cardiac: No acute issues. Pulmonary: Acute hypoxic respiratory failure secondary to pulmonary aspiration, initially requiring ventilatory support, extubated 07/25/2023. Continue to titrate off supplemental oxygen as tolerated. Renal: No acute issues. Endo: No acute issues. Underlying diabetes mellitus. GI: No acute issues. ID: No acute issues. Heme/Onc: No acute issues. Psych: No acute issues. Miscellaneous: No acute issues. Prophylaxis: Heparin Diet: Regular Quality Stroke Does the patient have a stroke diagnosis?: No VTE Prior VTE?: No VTE Risk Level:: Medical - moderate - high VTE Device Contraindication: Treatment Not Indicated VTE Drug Contraindication: N/A - Med Ordered
--- NOTE | 2023-07-27 14:03 | PM.EVENT ---
Event Note Date of Service: 07/27/23 Event Note: Transferred to [facility] today from ICU Patient was admitted intermediate care unit for alcohol withdrawal, on 07/17/2023 was receiving treatment with phenobarbital on 07/22/2023 had an aspiration event requiring intubation with ventilatory support and transfer to intensive care unit. Extubated uneventfully on 07/25/2023 and transfer back to us on 07/26. Patient seen in ICU He is feeling better has difficulty voiding, and feels he is withdrawing since has not received his Suboxone. He denies tremors, no nausea, no vomiting, no abdominal pain, no diarrhea Vital stable Gen: Awake alert x3, no distress HEENT: sclera anicteric, moist mucus membranes Neck: supple Lungs: Coarse breath sounds,, no use of accessory muscle Heart: Regular rate rhythm Abd: soft, non-tender, non-distended, bowel sounds audible Ext: no edema Skin: warm/well-perfused Neuro: alert and oriented x3, nonfocal Assessment plan Alcohol abuse/withdrawal finished course of phenobarb Acute hypoxic respiratory failure status post intubation due to aspiration finished course of antibiotics. Non-insulin dependent diabetes mellitus stable blood sugars, continue insulin sliding scale, resume metformin upon discharge. Essential hypertension soft bp hold metoprolol. Chronic pain continue gabapentin, resume home medications upon discharge BPH will resume Flomax Opiate use disorder will resume Suboxone. As per patient he is not taking acyclovir at home will discontinue upon discharge. Time Spent With Patient Time: Total time managing care of this patient today ____ minutes.
[2023-07-27] MEDS: oxyCODONE HCl Immed Release 5 MG TABLET PO (15:45)
[2023-07-27] MEDS: 0.9 % Sodium Chloride Flush 3 ML SYRINGE IVFLUSH ×2 (15:45→22:38)
[2023-07-27 16:37] LABS: Glucose, Whole Blood 112 mg/dL (60-115)
[2023-07-27] MEDS: Buprenorphine/Naloxone 8/2 mg FILM 1 FILM SUBLINGUAL (17:14)
[2023-07-27] MEDS: Acetaminophen 325 MG TABLET 650 MG PO (17:14)
--- NOTE | 2023-07-27 18:26 | PC.NURSE ---
received report from [employer], reported that cooper was removed at 11:00. Due to void at 17:00, bladder scanned for 381 ml. Patient attempted to void, post residual of 73 ml.
[2023-07-27 21:07] LABS: Glucose, Whole Blood 161 mg/dL (60-115)
[2023-07-27] MEDS: Enoxaparin Sodium 40 MG/0.4 ML SYRINGE SUBCUT (22:33)
[2023-07-27] MEDS: Tamsulosin HCL 0.4 MG CAPSULE 0.8 MG PO (22:34)
[2023-07-27] MEDS: traZODone HCL 100 MG TABLET 300 MG PO (22:34)
[2023-07-28] VITALS (7 sets, daily range): BP systolic 113–140; BP diastolic 60–88; PULSE 86–105; RESP 18–20; TEMP 36.1–36.3; O2SAT 93–97
[2023-07-28] MEDS: Acetaminophen 325 MG TABLET 650 MG PO ×4 (00:22→21:40)
[2023-07-28] MEDS: Nicotine Polacrilex 2 MG GUM BUCCAL ×5 (00:48→21:41)
[2023-07-28] MEDS: Buprenorphine/Naloxone 8/2 mg FILM 1 FILM SUBLINGUAL ×2 (06:10→18:35)
[2023-07-28 06:21] LABS: MANUAL DIFF FLAG NO
[2023-07-28 06:43] LABS: Albumin Level 3.8 g/dL (3.5-5.0); Anion Gap 16 (12-20); Blood Urea Nitrogen 14 mg/dL (9-16); Calcium 9.2 mg/dL (8.4-10.2); Carbon Dioxide 19 mmol/L (22-29); Chloride 107 mmol/L (96-108); Creatinine Clr Calc Pharmacy 117.3; Estimated Glomerular Filt Rate > 60; Glucose Random 112 mg/dL (60-115); Magnesium 1.9 mg/dL (1.6-2.6); Phosphorus 3.3 mg/dL (2.7-4.5); Potassium 3.4 mmol/L (3.3-5.1); Sodium 139 mmol/L (135-145)
[2023-07-28 06:44] LABS: Basophils Absolute Auto 0.1 X10*3/uL (0.0-0.2); Basophils Percent Auto 0.9 % (0-2); Eosinophils Absolute Auto 0.2 X10*3/uL (0.0-0.4); Eosinophils Percent Auto 1.8 % (0-4); Hematocrit 41.3 % (42.0-52.0); Hemoglobin 14.6 g/dl (14.0-18.0); Imm Gran Abs Auto 0.06 X10*3/uL (0.00-0.03); Imm Gran Pct Auto 0.6 % (0.0-0.4); Lymphocytes Absolute Auto 3.6 X10*3/uL (1.2-4.9); Lymphocytes Percent Auto 34.6 % (20-40); Mean Corpuscular HGB Conc 35.4 g/dl (31.0-36.0); Mean Corpuscular Hemoglobin 30.8 pg (27.0-33.0); Mean Corpuscular Volume 87.1 fL (80.0-98.0); Mean Platelet Volume 10.2 fL (9.4-12.4); Monocytes Absolute Auto 1.1 X10*3/uL (0.1-1.2); Monocytes Percent Auto 10.8 % (2-11); Neutrophils Absolute Auto 5.3 x10*3/uL (2.0-8.3); Neutrophils Percent Auto 51.3 % (45-73); Platelet Count 288 X10*3/uL (160-400); Red Blood Count 4.74 X10*6/uL (4.60-5.80); Red Cell Distribution Width 13.7 % (11.0-16.0); White Blood Count 10.4 X10*3/uL (4.8-10.8)
[2023-07-28 08:38] LABS: Glucose, Whole Blood 156 mg/dL (60-115)
[2023-07-28] MEDS: lamoTRIgine 25 MG TABLET 50 MG PO (08:43)
[2023-07-28] MEDS: busPIRone HCl 5 MG TABLET PO ×2 (08:44→21:42)
[2023-07-28] MEDS: Finasteride 5 MG TABLET PO (08:44)
[2023-07-28] MEDS: Insulin Lispro 100 UNIT/ML 3 ML VIAL SUBCUT ×2 (08:44→21:42)
[2023-07-28] MEDS: 0.9 % Sodium Chloride Flush 3 ML SYRINGE IVFLUSH ×2 (08:44→17:25)
[2023-07-28] MEDS: Gabapentin 400 MG CAPSULE 1200 MG PO ×3 (08:44→21:41)
--- NOTE | 2023-07-28 11:29 | P.PNIM_ITS ---
Subjective Subjective Date of Service: 07/28/23 Interval History: c/o dry eyes some cough, no dyspnea states I'm done with drinking Review of Systems Review of Systems: Yes all other systems are reviewed and are negative Physical Exam 2 Vital Signs: Vital Signs: Last Vital Signs Temp 97.0 F 07/28/23 11:07 Pulse 90 07/28/23 11:07 Resp 20 07/28/23 11:07 BP 139/87 07/28/23 11:07 Pulse Ox 93 07/28/23 11:07 O2 Del Method Room Air 07/28/23 11:07 O2 Flow Rate 4 07/27/23 11:00 FiO2 40 07/25/23 08:58 BMI result Body Mass Index 33.1 Gen: in no acute distress HEENT: sclera anicteric, moist mucus membranes Neck: supple Lungs: clear to auscultation bilaterally Heart: regular rate and rhythm, no murmurs Abd: soft, non-tender, non-distended Ext: no edema Skin: warm/well-perfused Neuro: alert and oriented x3, no focal findings Psych: appropriate affect Objective Data Active Medications Acetaminophen (Acetaminophen 325 Mg Tablet) 650 mg PO Q6H PRN PRN Reason: Pain, Mild (Pain Scale 1-3) Last Admin: 07/28/23 06:13 Dose: 650 mg Documented By: LEENA Artificial Tears (Artificial Tears 15 Ml Drops) 2 drop EYE-BOTH Q4H PRN PRN Reason: dry eye Buprenorphine/Naloxone (Buprenorphine/Naloxone 8/2 Mg Film) 1 film SUBLINGUAL BID@0700,1900 [facility] Last Admin: 07/28/23 06:10 Dose: 1 film Documented By: LEENA Buspirone HCl (Buspirone Hcl 5 Mg Tablet) 5 mg PO BID [facility] Last Admin: 07/28/23 08:44 Dose: 5 mg Documented By: ALEXIS Enoxaparin Sodium (Enoxaparin Sodium 40 Mg/0.4 Ml Syringe) 40 mg SUBCUT Q24H [facility] Last Admin: 07/27/23 22:33 Dose: 40 mg Documented By: LEENA Finasteride (Finasteride 5 Mg Tablet) 5 mg PO DAILY [facility] Last Admin: 07/28/23 08:44 Dose: 5 mg Documented By: ALEXIS Gabapentin (Gabapentin 400 Mg Capsule) 1,200 mg PO TID [facility] Last Admin: 07/28/23 08:44 Dose: 1,200 mg Documented By: ALEXIS Glucose (Glucose Gel 15 Gm Gel..Gram.) 15 gm PO Q15M PRN; Protocol PRN Reason: per Hypoglycemia Standing Ord. Dextrose (D10) 250 mls @ 750 mls/hr IV Q15M PRN; Protocol PRN Reason: per Hypoglycemia Standing Ord. Insulin Human Lispro (Insulin Lispro 100 Unit/Ml 3 Ml Vial) 0 unit SUBCUT QIDACHS [facility]; Protocol Last Admin: 07/28/23 08:44 Dose: 4 unit Documented By: ALEXIS Lamotrigine (Lamotrigine 25 Mg Tablet) 50 mg PO BID [facility] Last Admin: 07/28/23 08:43 Dose: 50 mg Documented By: ALEXIS Nicotine Polacrilex (Nicotine Polacrilex 2 Mg Gum) 2 mg BUCCAL Q2H PRN PRN Reason: Nicotine Cravings Last Admin: 07/28/23 08:44 Dose: 2 mg Documented By: ALEXIS Ondansetron HCl (Ondansetron Hcl 4 Mg/2 Ml Vial) 4 mg IVPUSH Q8H PRN PRN Reason: Nausea and Vomiting Last Admin: 07/22/23 05:41 Dose: 4 mg Documented By: JEAN Sodium Chloride (0.9 % Sodium Chloride Flush 3 Ml Syringe) 3 ml IVFLUSH QSHIFT [facility] Last Admin: 07/28/23 08:44 Dose: 3 ml Documented By: ALEXIS Tamsulosin HCl (Tamsulosin Hcl 0.4 Mg Capsule) 0.8 mg PO BEDTIME [facility] Last Admin: 07/27/23 22:34 Dose: 0.8 mg Documented By: LEENA Trazodone HCl (Trazodone Hcl 100 Mg Tablet) 300 mg PO BEDTIME [facility] Last Admin: 07/27/23 22:34 Dose: 300 mg Documented By: LEENA Labs 07/28/23 05:18 07/28/23 05:18 Labs: Laboratory Results - last 24 hr 07/27/23 07/27/23 07/28/23 16:24 21:03 05:18 MCV 87.1 MCH MCHC RDW Plt Count MPV Immature Gran % (Auto) Neut % (Auto) Lymph % (Auto) [place] % (Auto) Eos % (Auto) Baso % (Auto) Lymph # (Auto) [place] # (Auto) Eos # (Auto) Baso # (Auto) Abs Immat Gran (auto) Absolute Neuts (auto) Absolute Nucleated RBC Nucleated RBC % (auto) Anion Gap Estim Creat Clear Calc Estimated GFR POC Glucose 112 161 H Random Glucose Calcium Phosphorus Magnesium Albumin 07/28/23 07/28/23 07/28/23 05:18 05:18 05:18 MCV Cancelled MCH 30.8 Cancelled MCHC 35.4 Cancelled RDW 13.7 Plt Count MPV Immature Gran % (Auto) Neut % (Auto) Lymph % (Auto) [place] % (Auto) Eos % (Auto) Baso % (Auto) Lymph # (Auto) [place] # (Auto) Eos # (Auto) Baso # (Auto) Abs Immat Gran (auto) Absolute Neuts (auto) Absolute Nucleated RBC Nucleated RBC % (auto) Anion Gap Estim Creat Clear Calc Estimated GFR POC Glucose Random Glucose Calcium Phosphorus Magnesium Albumin 07/28/23 07/28/23 07/28/23 05:18 05:18 05:18 MCV MCH MCHC RDW Cancelled Plt Count 288 Cancelled MPV 10.2 Cancelled Immature Gran % (Auto) 0.6 H Neut % (Auto) Lymph % (Auto) [place] % (Auto) Eos % (Auto) Baso % (Auto) Lymph # (Auto) [place] # (Auto) Eos # (Auto) Baso # (Auto) Abs Immat Gran (auto) Absolute Neuts (auto) Absolute Nucleated RBC Nucleated RBC % (auto) Anion Gap Estim Creat Clear Calc Estimated GFR POC Glucose Random Glucose Calcium Phosphorus Magnesium Albumin 07/28/23 07/28/23 07/28/23 05:18 05:18 05:18 MCV MCH MCHC RDW Plt Count MPV Immature Gran % (Auto) Cancelled Neut % (Auto) 51.3 Cancelled Lymph % (Auto) 34.6 Cancelled [place] % (Auto) 10.8 Eos % (Auto) Baso % (Auto) Lymph # (Auto) [place] # (Auto) Eos # (Auto) Baso # (Auto) Abs Immat Gran (auto) Absolute Neuts (auto) Absolute Nucleated RBC Nucleated RBC % (auto) Anion Gap Estim Creat Clear Calc Estimated GFR POC Glucose Random Glucose Calcium Phosphorus Magnesium Albumin 07/28/23 07/28/23 07/28/23 05:18 05:18 05:18 MCV MCH MCHC RDW Plt Count MPV Immature Gran % (Auto) Neut % (Auto) Lymph % (Auto) [place] % (Auto) Cancelled Eos % (Auto) 1.8 Cancelled Baso % (Auto) 0.9 Cancelled Lymph # (Auto) 3.6 [place] # (Auto) Eos # (Auto) Baso # (Auto) Abs Immat Gran (auto) Absolute Neuts (auto) Absolute Nucleated RBC Nucleated RBC % (auto) Anion Gap Estim Creat Clear Calc Estimated GFR POC Glucose Random Glucose Calcium Phosphorus Magnesium Albumin 07/28/23 07/28/23 07/28/23 05:18 05:18 05:18 MCV MCH MCHC RDW Plt Count MPV Immature Gran % (Auto) Neut % (Auto) Lymph % (Auto) [place] % (Auto) Eos % (Auto) Baso % (Auto) Lymph # (Auto) Cancelled [place] # (Auto) 1.1 Cancelled Eos # (Auto) 0.2 Cancelled Baso # (Auto) 0.1 Abs Immat Gran (auto) Absolute Neuts (auto) Absolute Nucleated RBC Nucleated RBC % (auto) Anion Gap Estim Creat Clear Calc Estimated GFR POC Glucose Random Glucose Calcium Phosphorus Magnesium Albumin 07/28/23 07/28/23 07/28/23 05:18 05:18 05:18 MCV MCH MCHC RDW Plt Count MPV Immature Gran % (Auto) Neut % (Auto) Lymph % (Auto) [place] % (Auto) Eos % (Auto) Baso % (Auto) Lymph # (Auto) [place] # (Auto) Eos # (Auto) Baso # (Auto) Cancelled Abs Immat Gran (auto) 0.06 H Cancelled Absolute Neuts (auto) 5.3 Cancelled Absolute Nucleated RBC 0.000 Nucleated RBC % (auto) Anion Gap Estim Creat Clear Calc Estimated GFR POC Glucose Random Glucose Calcium Phosphorus Magnesium Albumin 07/28/23 07/28/23 07/28/23 05:18 05:18 08:26 MCV MCH MCHC RDW Plt Count MPV Immature Gran % (Auto) Neut % (Auto) Lymph % (Auto) [place] % (Auto) Eos % (Auto) Baso % (Auto) Lymph # (Auto) [place] # (Auto) Eos # (Auto) Baso # (Auto) Abs Immat Gran (auto) Absolute Neuts (auto) Absolute Nucleated RBC Cancelled Nucleated RBC % (auto) 0.0 Cancelled Anion Gap 16 Estim Creat Clear Calc 117.3 Estimated GFR > 60 POC Glucose 156 H Random Glucose 112 Calcium 9.2 Phosphorus 3.3 Magnesium 1.9 Albumin 3.8 Assessment and Plan (1) Pulmonary aspiration: Status: Acute Plan d12 62yo M with AUD + hx withdrawal, DM2, mood disorder, BPH, tobacco use disorder, HTN, HLD, OUD on Suboxone [place] [facility] treated with phenobarbital drip aspirated on 07/22/23 and was intubated and transferred to ICU for ventiltatory support extubated 07/25/23, [place] [facility] [place] AUD + hx withdrawal - completed phenobarbital + dexmetetomidine drips acute hypoxic respiratory failure - extubated + weaned off oxygen aspiration pneumonia - completed antibiotic course DM2 - steve-dose lispro, resume MTF upon discharge HTN - resume metoprolol succinate HLD - resume atorvastatin chronic pain - resume gabapentin + duloxetine + cyclobenzparine BPH - resume tamsulosin + finasteride OUD - resume Suboxone mood disorder - resume buspirone + trazodone tobacco abuse disorder - NRT VTE ppx - LMWH dispo - PT consult In my clinical judgment, the patient requires continued inpatient hospitalization for the following reasons:post-ICU care Total time managing care of this patient today: 35 minutes. Quality Stroke Does the patient have a stroke diagnosis?: No VTE Prior VTE?: No VTE Risk Level:: Medical - moderate - high VTE Device Contraindication: Treatment Not Indicated VTE Drug Contraindication: N/A - Med Ordered
[2023-07-28 12:02] LABS: Glucose, Whole Blood 108 mg/dL (60-115)
[2023-07-28] MEDS: cloNIDine HCL 0.1 MG TABLET PO (13:04)
[2023-07-28] MEDS: Artificial Tears 15 ML DROPS 2 DROP EYE-BOTH (13:42)
[2023-07-28 16:10] LABS: Glucose, Whole Blood 130 mg/dL (60-115)
--- NOTE | 2023-07-28 18:23 | HO.SKINPHOTO ---
Location: Category: Stage: Length: Width: Depth: cm Location: Category: Stage: Length: Width: Depth: cm Location: Category: Stage: Length: Width: Depth: cm Location: Category: Stage: Length: Width: Depth: cm Location: Category: Stage: Length: Width: Depth: cm Location: Category: Stage: Length: Width: Depth: cm
[2023-07-28] MEDS: oxyCODONE HCl Immed Release 5 MG TABLET PO (18:35)
[2023-07-28 21:25] LABS: Glucose, Whole Blood 161 mg/dL (60-115)
[2023-07-28] MEDS: Tamsulosin HCL 0.4 MG CAPSULE 0.8 MG PO (21:41)
[2023-07-28] MEDS: traZODone HCL 100 MG TABLET 300 MG PO (21:42)
[2023-07-28] MEDS: hydrOXYzine HCL 25 MG TABLET PO (21:42)
[2023-07-28] MEDS: Atorvastatin Calcium 10 MG TABLET PO (21:42)
[2023-07-28] MEDS: Enoxaparin Sodium 40 MG/0.4 ML SYRINGE SUBCUT (21:43)
[2023-07-28] MEDS: Metoprolol Succinate ER 25 MG TAB.ER.24H PO (22:03)
[2023-07-29] MEDS: Zolpidem Tartrate 5 MG TABLET PO (00:17)
[2023-07-29 04:00] VITALS: BP 109/64; PULSE 95; RESP 18; TEMP 36.6; O2SAT 96
[2023-07-29] MEDS: Nicotine Polacrilex 2 MG GUM BUCCAL (04:31)
[2023-07-29] MEDS: Buprenorphine/Naloxone 8/2 mg FILM 1 FILM SUBLINGUAL (06:06)
[2023-07-29 06:09] LABS: MANUAL DIFF FLAG NO
[2023-07-29 06:20] LABS: Basophils Absolute Auto 0.1 X10*3/uL (0.0-0.2); Eosinophils Absolute Auto 0.4 X10*3/uL (0.0-0.4); Eosinophils Percent Auto 3.8 % (0-4); Hematocrit 40.9 % (42.0-52.0); Imm Gran Abs Auto 0.03 X10*3/uL (0.00-0.03); Imm Gran Pct Auto 0.3 % (0.0-0.4); Lymphocytes Absolute Auto 3.5 X10*3/uL (1.2-4.9); Lymphocytes Percent Auto 36.8 % (20-40); Mean Corpuscular HGB Conc 34.2 g/dl (31.0-36.0); Mean Corpuscular Hemoglobin 30.5 pg (27.0-33.0); Mean Corpuscular Volume 89.1 fL (80.0-98.0); Monocytes Absolute Auto 0.9 X10*3/uL (0.1-1.2); Monocytes Percent Auto 9.4 % (2-11); Neutrophils Absolute Auto 4.7 x10*3/uL (2.0-8.3); Neutrophils Percent Auto 48.7 % (45-73); Platelet Count 290 X10*3/uL (160-400); Red Blood Count 4.59 X10*6/uL (4.60-5.80); Red Cell Distribution Width 13.8 % (11.0-16.0); White Blood Count 9.6 X10*3/uL (4.8-10.8)
[2023-07-29 06:26] LABS: Anion Gap 17 (12-20); Blood Urea Nitrogen 14 mg/dL (9-16); Calcium 9.4 mg/dL (8.4-10.2); Carbon Dioxide 21 mmol/L (22-29); Chloride 107 mmol/L (96-108); Creatinine Clr Calc Pharmacy 120.4; Estimated Glomerular Filt Rate > 60; Glucose Random 117 mg/dL (60-115); Potassium 3.8 mmol/L (3.3-5.1); Sodium 141 mmol/L (135-145)
[2023-07-29 07:19] LABS: Glucose, Whole Blood 143 mg/dL (60-115)
[2023-07-29 07:31] VITALS: BP 117/57; PULSE 100; RESP 18; TEMP 36.3; O2SAT 94
[2023-07-29] MEDS: 0.9 % Sodium Chloride Flush 3 ML SYRINGE IVFLUSH (08:19)
[2023-07-29] MEDS: busPIRone HCl 5 MG TABLET PO (08:19)
[2023-07-29] MEDS: Gabapentin 400 MG CAPSULE 1200 MG PO (08:19)
[2023-07-29] MEDS: Finasteride 5 MG TABLET PO (08:19)
[2023-07-29 09:14] VITALS: PULSE 116; O2SAT 93
--- NOTE | 2023-07-29 10:12 | P.DS_ITS ---
DS: Providers Provider Date of Service: 07/29/23 Date of admission: 07/17/23 19:37 Date of discharge: 07/29/23 Primary care physician: Estela Gupta MD Consults: 07/17/23 15:16 Addiction Medicine Stat Consulting Provider: Addiction Covering Reason for consultation: alcohol abuse 07/22/23 11:59 Consult to Urology Routine Consulting Provider: [facility] Reason for consultation: Unable to place [place], urinary retention Has provider been notified: No 07/28/23 18:00 Consult to Wound Care Routine Reason for consultation: wound to left hand DS: Diagnosis Discharge Diagnosis (1) Acute hypoxemic respiratory failure: Status: Acute (2) Alcohol withdrawal syndrome: Status: Acute (3) Aspiration pneumonia: Status: Acute DS: Summary Hospital Course Hospital Course: From the history and physical by the admitting hospitalist, Eva Tipton, 07/17/23: This is a 62-year-old male with pertinent history of alcohol use disorder with history of alcohol withdrawal, [id number] diabetes mellitus, mood disorder, BPH, tobacco use disorder, essential hypertension, mixed hyp erlipidemia, opiates use disorder on Suboxone, chronic pain who presents to the emergency department for concerns of alcohol withdrawal. Patient states he drinks about 30 beers per day and his last drink was 1pm on the day of presentation. Patient was admitted about 6 months ago for alcohol withdrawal. Does have a history of alcohol withdrawal seizures. Patient states he has been having anxiety and tremors since his last drink. Is seeking detox. Also complains of nausea and generalized abdominal discomfort, constant, nonradiating, no relieving factors. Patient denies fever, chills, chest discomfort, palpitations, changes in urinary or bowel habits. Endorses smoking tobacco and admits wheezing. In the emergency department, patient was initiated on phenobarb protocol. 62yo M with AUD + hx withdrawal, DM2, mood disorder, BPH, tobacco use disorder, HTN, HLD, and OUD on Suboxone who was initially admitted to the [facility] [place] for EtOH withdrawal that was treated with a phenobarbital drip. He had an acute episode of aspiration on 07/22/23 resulting in hypoxic respiratory failure. He was intubated and transferred to ICU for ventiltatory support. He was treated with antibiotics and gradually weaned off ventilatory support. Withdrawal was completely treated with phenobarbital as well as a dexmetetomidine drip. He was extubated on 07/25/23 and transferred back to the [facility] on 07/27/23. He was weaned completely off oxygen. He was discharged [facility] and counseled to completely avoid alcohol. Incidental note was made of a RUL 1 mm pulmonary nodule which may be followed with an optional CT in 12 months. Time Attestation Discharge Coordination Time (in mins): 35 Quality: Safe Use of Opioids Does Pt have an Active Cancer Diagnosis on the Problem List?: No Quality: Stroke Does the patient have a stroke diagnosis?: No Physical Exam Vital Signs: Vital Signs: Last Vital Signs Temp 97.4 F 07/29/23 07:31 Pulse 116 H 07/29/23 09:14 Resp 18 07/29/23 07:31 BP 117/57 L 07/29/23 07:31 Pulse Ox 93 07/29/23 09:14 O2 Del Method Room Air 07/29/23 07:31 O2 Flow Rate 4 07/27/23 11:00 FiO2 40 07/25/23 08:58 BMI result Body Mass Index 33.1 Gen: in no acute distress HEENT: sclera anicteric, moist mucus membranes Neck: supple Lungs: clear to auscultation bilaterally Heart: regular rate and rhythm, no murmurs Abd: soft, non-tender, non-distended Ext: no edema Skin: warm/well-perfused Neuro: alert and oriented x3, no focal findings Psych: appropriate affect DS: Data Data Completed and Pending Completed studies during hospitalization [Text1]: Laboratory Results WBC 9.6 X10*3/uL (4.8-10.8) 07/29/23 05:51 RBC 4.59 X10*6/uL (4.60-5.80) L 07/29/23 05:51 Hgb 14.0 g/dl (14.0-18.0) 07/29/23 05:51 Hct 40.9 % (42.0-52.0) L 07/29/23 05:51 MCV 89.1 fL (80.0-98.0) 07/29/23 05:51 MCH 30.5 pg (27.0-33.0) 07/29/23 05:51 MCHC 34.2 g/dl (31.0-36.0) 07/29/23 05:51 RDW 13.8 % (11.0-16.0) 07/29/23 05:51 Plt Count 290 X10*3/uL (160-400) 07/29/23 05:51 MPV 10.0 fL (9.4-12.4) 07/29/23 05:51 Immature Gran % (Auto) 0.3 % (0.0-0.4) 07/29/23 05:51 Neut % (Auto) 48.7 % (45-73) 07/29/23 05:51 Lymph % (Auto) 36.8 % (20-40) 07/29/23 05:51 [place] % (Auto) 9.4 % (2-11) 07/29/23 05:51 Eos % (Auto) 3.8 % (0-4) 07/29/23 05:51 Baso % (Auto) 1.0 % (0-2) 07/29/23 05:51 Lymph # (Auto) 3.5 X10*3/uL (1.2-4.9) 07/29/23 05:51 [place] # (Auto) 0.9 X10*3/uL (0.1-1.2) 07/29/23 05:51 Eos # (Auto) 0.4 X10*3/uL (0.0-0.4) 07/29/23 05:51 Baso # (Auto) 0.1 X10*3/uL (0.0-0.2) 07/29/23 05:51 Abs Immat Gran (auto) 0.03 X10*3/uL (0.00-0.03) 07/29/23 05:51 Absolute Neuts (auto) 4.7 x10*3/uL (2.0-8.3) 07/29/23 05:51 Absolute Nucleated RBC 0.000 X10*3/uL (0.0-0.012) 07/29/23 05:51 Nucleated RBC % (auto) 0.0 /100WBC (0.0-0.2) 07/29/23 05:51 Smear Tech's Comments VERIFIED 07/18/23 06:02 O2 Saturation 99.0 % 07/22/23 16:46 ABG pH at Pt Temp 7.50 (7.35-7.45) H 07/22/23 16:46 ABG pCO2 at Pt Temp 47 mmHg (32-45) H 07/22/23 16:46 ABG pO2 at Pt Temp 83 mmHg (83-108) 07/22/23 16:46 ABG HCO3 37 mmol/L (22-26) H 07/22/23 16:46 ABG Base Excess (Actual) 12.4 mmol/L 07/22/23 16:46 VBG pH 7.46 (7.32-7.43) H 07/27/23 04:34 VBG pCO2 31 mmHg 07/27/23 04:34 VBG pO2 61 mmHg 07/27/23 04:34 VBG HCO3 22 mmol/L (22-26) 07/27/23 04:34 VBG O2 Saturation 91.0 % 07/27/23 04:34 VBG Base Excess -0.1 mmol/L 07/27/23 04:34 Sodium 141 mmol/L (135-145) 07/29/23 05:51 Potassium 3.8 mmol/L (3.3-5.1) 07/29/23 05:51 Chloride 107 mmol/L (96-108) 07/29/23 05:51 Carbon Dioxide 21 mmol/L (22-29) L 07/29/23 05:51 Anion Gap 17 (12-20) 07/29/23 05:51 BUN 14 mg/dL (9-16) 07/29/23 05:51 Creatinine 0.75 mg/dL (0.5-1.4) 07/29/23 05:51 Estim Creat Clear Calc 120.4 07/29/23 05:51 Estimated GFR > 60 07/29/23 05:51 POC Glucose 143 mg/dL (60-115) H 07/29/23 06:49 Random Glucose 117 mg/dL (60-115) H 07/29/23 05:51 Calcium 9.4 mg/dL (8.4-10.2) 07/29/23 05:51 Phosphorus 3.3 mg/dL (2.7-4.5) 07/28/23 05:18 Magnesium 1.9 mg/dL (1.6-2.6) 07/28/23 05:18 Total Bilirubin 0.4 mg/dL (0.0-1.0) 07/27/23 04:36 AST 27 U/L (5-37) 07/27/23 04:36 ALT 23 U/L (0-40) 07/27/23 04:36 Alkaline Phosphatase 53 U/L (39-117) 07/27/23 04:36 Troponin I High Sens 2.8 ng/L (<3.5-35.0) 07/17/23 15:34 B-Natriuretic Peptide Cancelled 07/17/23 15:34 Total Protein 6.8 g/dL (6.5-8.0) 07/27/23 04:36 Albumin 3.8 g/dL (3.5-5.0) 07/28/23 05:18 Lipase 15 U/L (8-78) 07/17/23 15:34 Urine Color Yellow 07/17/23 16:53 Urine Appearance Clear 07/17/23 16:53 Urine pH 6.0 (5.0-9.0) 07/17/23 16:53 Ur Specific [place] <= 1.005 (1.005-1.025) 07/17/23 16:53 Urine Protein Negative mg/dL (Neg-Trace) 07/17/23 16:53 Urine Glucose (UA) Negative mg/dL (Negative) 07/17/23 16:53 Urine Ketones Negative mg/dL (Negative) 07/17/23 16:53 Urine Blood Negative (Negative) 07/17/23 16:53 Urine Nitrite Negative (Negative) 07/17/23 16:53 Ur Leukocyte Esterase Negative (Negative) 07/17/23 16:53 Urine Opiates Screen Not Detected (Not Detect) 07/17/23 16:55 Ur Buprenorphine Scrn Positive ng/mL (Not Detect) H 07/17/23 16:55 Ur Oxycodone Screen Not Detected ng/mL (Not Detect) 07/17/23 16:55 Urine Methadone Screen Not Detected ng/mL (Not Detect) 07/17/23 16:55 Urine Fentanyl Screen Not Detected (Not Detect) 07/17/23 16:55 Ur Barbiturates Screen Not Detected (Not Detect) 07/17/23 16:55 Ur Phencyclidine Scrn Not Detected (Not Detect) 07/17/23 16:55 Ur Amphetamines Screen Not Detected (Not Detect) 07/17/23 16:55 U Benzodiazepines Scrn Not Detected (Not Detect) 07/17/23 16:55 Urine Cocaine Screen Not Detected (Not Detect) 07/17/23 16:55 U Marijuana (THC) Screen Not Detected (Not Detect) 07/17/23 16:55 Ethyl Alcohol 134 mg/dL 07/17/23 15:34 Impressions Abdomen/Pelvis CT 07/17/23 18:22 IMPRESSION: 1. No bowel obstruction, free intraperitoneal air or abscess is seen. A patent mid small bowel anastomotic staple line is noted. Please correlate with the patient's Past Surgical History. There is mild diverticulosis, without acute diverticulitis. The vermiform appendix appears normal. 2. At the lower pole of the left kidney, a 5 nonobstructing calculus is seen. No further urinary calculus is seen, there is no obstructive uropathy. The urinary bladder is somewhat distended. 3. There is hepatic steatosis. 4. The gallbladder is surgically absent. 5. Unremarkable CT appearance of the pancreas. 6. There are small fat-containing bilateral inguinal hernias, left greater than right. 7. There is marked anterior endplate arthropathy at T8-T9 and T9-T10. No aggressive osseous lesion is seen. Fleischner guidelines were followed. Chest CTA 07/17/23 18:24 IMPRESSION: 1. No pulmonary emboli. 2. 1 mm nodule in the right upper lobe. Follow-up as per Fleischner criteria. 3. A few mildly prominent mediastinal lymph nodes are noted greatest in the right paratracheal region measuring up to 1.2 cm in short axis. 4. Decreased hepatic attenuation suggesting hepatic steatosis. 5. Gallbladder surgically absent. 6. Redemonstrated hypertrophied splenules. Various management parameters for solitary pulmonary nodules are in the literature. According to the Fleischner Society, recommendations for pulmonary nodules are as follows: According to the UPDATED 2017 Fleischner Society recommendations, the advised follow-up imaging for solid nodules < 6 mm is: HIGH RISK PATIENT: Optional CT at 12 months. Chest X-Ray 07/23/23 11:00 IMPRESSION: ET tube 9.4 cm above the adrienne and could be advanced. Increasing right basilar atelectasis. Labs on day of discharge: Laboratory Results - last 24 hr 07/28/23 07/28/23 07/28/23 11:12 15:37 21:07 WBC RBC Hgb Hct MCV MCH MCHC RDW Plt Count MPV Immature Gran % (Auto) Neut % (Auto) Lymph % (Auto) [place] % (Auto) Eos % (Auto) Baso % (Auto) Lymph # (Auto) [place] # (Auto) Eos # (Auto) Baso # (Auto) Abs Immat Gran (auto) Absolute Neuts (auto) Absolute Nucleated RBC Nucleated RBC % (auto) Sodium Potassium Chloride Carbon Dioxide Anion Gap BUN Creatinine Estim Creat Clear Calc Estimated GFR POC Glucose 108 130 H 161 H Random Glucose Calcium 07/29/23 07/29/23 05:51 06:49 WBC 9.6 RBC 4.59 L Hgb 14.0 Hct 40.9 L MCV 89.1 MCH 30.5 MCHC 34.2 RDW 13.8 Plt Count 290 MPV 10.0 Immature Gran % (Auto) 0.3 Neut % (Auto) 48.7 Lymph % (Auto) 36.8 [place] % (Auto) 9.4 Eos % (Auto) 3.8 Baso % (Auto) 1.0 Lymph # (Auto) 3.5 [place] # (Auto) 0.9 Eos # (Auto) 0.4 Baso # (Auto) 0.1 Abs Immat Gran (auto) 0.03 Absolute Neuts (auto) 4.7 Absolute Nucleated RBC 0.000 Nucleated RBC % (auto) 0.0 Sodium 141 Potassium 3.8 Chloride 107 Carbon Dioxide 21 L Anion Gap 17 BUN 14 Creatinine 0.75 Estim Creat Clear Calc 120.4 Estimated GFR > 60 POC Glucose 143 H Random Glucose 117 H Calcium 9.4 Discharge Plan Discharge Anticipated Discharge Date/Time: 07/29/23 09:56 Patient Disposition: Home, Self-Care Discharge Diagnosis: alcohol use disorder with withdrawal syndrome hypoxic respiratory failure due to aspiration pneumonia Referrals: Estela Gupta MD [Primary Care Provider] - 1 Week Discharge Medications: New nicotine (polacrilex) 2 mg Gum 2 mg buccal Q2H PRN (Reason: Nicotine Cravings) Qty: 100 0RF Continued multivitamin Tablet 1 tab PO DAILY buspirone 5 mg Tablet 5 mg PO BID atorvastatin 20 mg Tablet 10 mg PO BEDTIME sennosides-docusate sodium 8.6-50 mg Tablet 2 tab-cap PO BEDTIME gabapentin 400 mg Capsule 1,200 mg PO TID acyclovir 400 mg Tablet 400 mg PO BID tamsulosin 0.4 mg Capsule 0.8 mg PO BEDTIME trazodone 100 mg Tablet 300 mg PO BEDTIME metformin 1,000 mg Tablet 1,000 mg PO DAILY finasteride 5 mg Tablet 5 mg PO DAILY melatonin 5 mg Tablet 5 mg PO BEDTIME buprenorphine-naloxone [Suboxone] 8-2 mg Film 1 film BUCCAL BID Rx Instructions: place 1 film on inside of (each) cheek metoprolol succinate 25 mg Capsule,Sprinkle,Er 24hr 25 mg PO BEDTIME hydroxyzine HCl 25 mg Tablet 25 mg PO BEDTIME cyclobenzaprine 10 mg Tablet 10 mg PO TID PRN (Reason: Muscle Spasm) duloxetine 60 mg Capsule, Delayed Rel Sprinkle 60 mg PO DAILY vitamin B complex Tablet 1 tab PO DAILY testosterone 1.62 % (20.25 mg/1.25 gram) Gel In Packet 2 packet TRANSDERMAL DAILY Rx Instructions: apply 20.25 mg /1 packet to max area of EACH upper arm and shoulder Discharge Orders: Discharge Order (Routine); Ordered 07/29/23 Ordered By: David Robles Diet: Diabetic diet Activity on Discharge: As tolerated Stand Alone Forms: Patient Portal Discharge page Print Language: [place] Care Plan Goals: recovery from hospitalization sobriety Health Concerns: alcohol use disorder with withdrawal syndrome hypoxic respiratory failure due to aspiration pneumonia Plan of Treatment: weaned off oxygen and completed antibiotics in the hospital follow up with your primary care doctor and your addiction medicine specialist as well as your recovery support team quit smoking; use nicotine replacement to help Incidental note was made of a RUL 1 mm pulmonary nodule which may be followed with an optional CT in 12 months. Discuss with your primary care doctor. Please follow up with your primary care doctor within 1 week. Return to the hospital if you experience recurrent or worsening symptoms. Assessment: See Discharge Summary.
--- NOTE | 2023-07-29 10:21 | MHC.CM.PN ---
Patient has been medically cleared for dc to home today, self care. CM met with Patient at bedside and addressed IMM with him, providing Patient with the original and a copy has been placed on the chart. Patient;'s Sister will transport to home.
== END 2023-07-29 12:00 | disposition home or self-care (01) | DRG 896 ==
LOC: HO.ED 17:13 → HO.EDOVER 19:48 → HO.S3 20:10 → HO.ICU 07-22 09:44 → HO.IMC 07-27 13:16
PROVIDERS: Hospitalist; Internal Medicine Critical Care Medicine; Internal Medicine Pulmonary Disease; Nurse Practitioner Family; Physician Assistant; Admitting Provider Student in an Organized Health Care Education/Training Program; Emergency Provider Emergency Medicine; PCP Internal Medicine; Referring Provider Internal Medicine; Visit Provider Family Medicine
DX: F10.239 Alcohol dependence with withdrawal, unspecified (principal); J69.0 Pneumonitis due to inhalation of food and vomit; J96.01 Acute respiratory failure with hypoxia; J44.1 Chronic obstructive pulmonary disease with (acute) exacerbation; F11.20 Opioid dependence, uncomplicated; N40.0 Benign prostatic hyperplasia without lower urinary tract symptoms; E78.2 Mixed hyperlipidemia; G89.29 Other chronic pain; I10 Essential (primary) hypertension; K29.20 Alcoholic gastritis without bleeding; R91.1 Solitary pulmonary nodule; E11.9 Type 2 diabetes mellitus without complications; Y90.6 Blood alcohol level of 120-199 mg/100 ml; Z87.891 Personal history of nicotine dependence; Z79.84 Long term (current) use of oral hypoglycemic drugs; Z79.899 Other long term (current) drug therapy
CPT/HCPCS: 36415; 36600; 71045; 71275; 74177; 80048; 80053; 80307; 81003; 82040; 82803; 82947; 83690; 83735; 83880; 84100; 84484; 85025; 93005; 94002; 94003; 94640; 97162; 99285; C1758; C9113; J1650; J1940; J1956; J2060; J2250; J2405; J2560; J2704; J2919; J3010; J3411; Q9967

== ENCOUNTER → 2023-07-17 14:21 | Outpatient (BNV) | payer OTHER, SELFPAY | PROVIDERS: Admitting Provider Student in an Organized Health Care Education/Training Program; Emergency Provider Emergency Medicine; PCP Internal Medicine; Visit Provider Internal Medicine | DX: R07.9 Chest pain, unspecified (principal) | CPT/HCPCS: 93010 ==

== ENCOUNTER 2023-07-17 19:37 | Outpatient (BNV) | payer OTHER, SELFPAY | END 2023-07-22 10:26 | PROVIDERS: Admitting Provider Student in an Organized Health Care Education/Training Program; Emergency Provider Emergency Medicine; PCP Internal Medicine; Visit Provider Internal Medicine Cardiovascular Disease | DX: I49.9 Cardiac arrhythmia, unspecified (principal) | CPT/HCPCS: 93010 ==

== ENCOUNTER → 2023-07-17 19:37 | Outpatient (BNV) | payer OTHER, SELFPAY | PROVIDERS: Admitting Provider Student in an Organized Health Care Education/Training Program; Emergency Provider Emergency Medicine; PCP Internal Medicine; Visit Provider Urology | DX: T83.098A Other mechanical complication of other urinary catheter, initial encounter (principal) | CPT/HCPCS: 51702; 99222 ==

== ENCOUNTER → 2023-07-17 19:37 | Outpatient (BNV) | payer OTHER, SELFPAY | PROVIDERS: Admitting Provider Student in an Organized Health Care Education/Training Program; Emergency Provider Emergency Medicine; PCP Internal Medicine; Visit Provider Student in an Organized Health Care Education/Training Program | DX: J96.01 Acute respiratory failure with hypoxia (principal); J69.0 Pneumonitis due to inhalation of food and vomit; F10.930 Alcohol use, unspecified with withdrawal, uncomplicated | CPT/HCPCS: 99223; 99232; 99233; 99239; 99499 ==

== ENCOUNTER → 2023-07-17 19:37 | Outpatient (BNV) | payer OTHER, SELFPAY | PROVIDERS: Admitting Provider Student in an Organized Health Care Education/Training Program; Emergency Provider Emergency Medicine; PCP Internal Medicine; Visit Provider Nurse Practitioner Family | DX: J96.01 Acute respiratory failure with hypoxia (principal); T17.900A Unspecified foreign body in respiratory tract, part unspecified causing asphyxiation, initial encounter; E11.9 Type 2 diabetes mellitus without complications; F10.930 Alcohol use, unspecified with withdrawal, uncomplicated; I10 Essential (primary) hypertension | CPT/HCPCS: 99222; 99291; 99292 ==

== ENCOUNTER → 2023-07-17 19:37 | Outpatient (BNV) | payer OTHER, SELFPAY | PROVIDERS: Admitting Provider Student in an Organized Health Care Education/Training Program; Emergency Provider Emergency Medicine; PCP Internal Medicine; Visit Provider Internal Medicine Pulmonary Disease | DX: T83.9XXA Unspecified complication of genitourinary prosthetic device, implant and graft, initial encounter (principal); T17.900A Unspecified foreign body in respiratory tract, part unspecified causing asphyxiation, initial encounter; E11.9 Type 2 diabetes mellitus without complications; F10.930 Alcohol use, unspecified with withdrawal, uncomplicated | CPT/HCPCS: 99233; 99291 ==

== ENCOUNTER 2023-11-29 12:48 | Inpatient (IN) | payer OTHER, SELFPAY ==
--- NOTE | ~2023-11-29 | XR_ITS ---
EXAMINATION: XR CHEST CLINICAL INFORMATION: Hypoxia. COMPARISON: Chest radiograph 07/23/2023. TECHNIQUE: Frontal view of the chest was obtained. FINDINGS: Normal appearance of the cardiomediastinal silhouette. No focal consolidation, pleural effusion or pneumothorax. No evidence of pulmonary edema. No acute osseous findings. XR/XR chest 1V IMPRESSION: No acute cardiopulmonary findings. Electronically signed by: Mindi Brown MD 11/29/2023 03:17 PM EDT
--- NOTE | ~2023-11-29 | CT_ITS ---
EXAMINATION: CT HEAD WITHOUT CONTRAST CLINICAL INFORMATION: Encephalopathy COMPARISON: CT scan of brain on 11/22/2022 TECHNIQUE: Contiguous axial imaging was performed from the skull base to vertex without intravenous administration of contrast. This CT examination was performed using dose optimization techniques as appropriate, variously including the following: *Automated exposure control *Adjustment of mA and/or kV according to patient size (this includes techniques or standardized protocols for targeted exams where dose is matched to indication/reason for exam; i.e. extremities or head) *Use of iterative reconstruction technique DLP: 892 mGy-cm FINDINGS: Ventricles, sulci and cisterns are normal. There is no midline shift, no abnormal intra- or extra- axial fluid accumulation. Miranda and white matter differentiation is normal. Bone window images show no evidence of skull fracture. Small air-fluid level is seen in the right maxillary sinus. Posterior left maxillary sinus shows mild mucosal thickening. CT/CT head/brain wo IV con IMPRESSION: 1. Unchanged Normal CT scan of the brain. 2. No intracranial hemorrhage or skull fracture is seen. 3. No evidence of space occupying lesion could be found. 4. The current plain CT scan of the brain shows no diagnostic evidence of acute cerebral infarction. 5. Interval development of small right maxillary sinus air-fluid level suggestive of sinusitis. Interval mild posterior left maxillary sinus mucosal thickening. Electronically signed by: Godfrey Cleaning MD 12/09/2023 03:29 PM EDT
--- NOTE | ~2023-11-29 | XR_ITS ---
EXAMINATION: XR CHEST CLINICAL INFORMATION: Endotracheal tube. COMPARISON: Chest radiograph dated 11/29/2023. TECHNIQUE: Frontal view of the chest was obtained. FINDINGS: Endotracheal tube with its tip approximately 3.1 cm proximal to the adrienne. Enterogastric tube with the tip in the region of the gastric body. No pleural effusion or pneumothorax. No airspace consolidation. Stable cardiomediastinal silhouette. XR/XR chest 1V IMPRESSION: 1. Endotracheal tube with its tip approximately 3.1 cm proximal to the adrienne. Enterogastric tube in appropriate position. 2. No acute cardiopulmonary findings. Electronically signed by: Keyon Lainez MD 12/07/2023 07:08 AM EDT
[2023-11-29 13:26] VITALS: BP 126/85; PULSE 124; RESP 18; TEMP 36.8; O2SAT 87; BMI 33.3
--- NOTE | 2023-11-29 13:26 | ED_ITS ---
HPI - General Adult General Chief complaint: ETOH/Substance Use Stated complaint: Detox Time Seen by Provider: 11/29/23 13:35 Source: patient, family, RN notes reviewed and old records reviewed Mode of arrival: ambulatory Limitations: no limitations History of Present Illness ED Provider: Samaria Purvis PA-C HPI narrative: 63-year-old male with history of severe alcohol use disorder, diabetes, hypertension, history of aspiration pneumonia requiring intubation in the past, history of severe alcohol withdrawal and withdrawal seizures who presents to the ER from home requesting alcohol detox. He reports last drink was 3-4 hours ago, he drinks about a 5th of vodka, 100 proof per day. He also drinks beers in addition to this. He was last in detox couple of months ago. He already feels like he is going through withdrawal and he is reporting significant nausea, upset stomach and the shakes. Denies any hallucinations, chest pain, shortness of breath. He does have some generalized abdominal pain, worse in the epigastric area. He reports a history of pancreatitis. He also reports difficulty swallowing that has been ongoing for months. He presents to the ER with his sister who helps provide history. He lives home alone with his dog. MD complaint: Alcohol withdrawal Onset (ago): hour(s) Location: abdomen Radiation: non-radiation Severity: moderate Quality: aching Pain Consistency: constant Relieving factors: none Exacerbating factors: none Associated symptoms: confusion, headaches, loss of appetite, malaise, nausea/vomiting and weakness Treatments prior to arrival: none Related Data Home Medications ?Medication ?Instructions ?Recorded ?Confirmed acyclovir 400 mg tablet 400 mg PO BID 11/21/22 07/17/23 atorvastatin 20 mg tablet 10 mg PO BEDTIME 11/21/22 07/17/23 buprenorphine 8 mg-naloxone 2 mg 1 film buccal BID 11/21/22 07/17/23 sublingual film (Suboxone) buspirone 5 mg tablet 5 mg PO BID 11/21/22 07/17/23 finasteride 5 mg tablet 5 mg PO DAILY 11/21/22 07/17/23 gabapentin 400 mg capsule 1,200 mg PO TID Anxiety/Pain 11/21/22 07/17/23 hydroxyzine HCl 25 mg tablet 25 mg PO BEDTIME 11/21/22 07/17/23 melatonin 5 mg tablet 5 mg PO BEDTIME 11/21/22 07/17/23 metformin 1,000 mg tablet 1,000 mg PO DAILY 11/21/22 07/17/23 metoprolol succinate 25 mg capsule 25 mg PO BEDTIME 11/21/22 07/17/23 sprinkle, ext. release 24 hr multivitamin 1 tab PO DAILY 11/21/22 07/17/23 sennosides 8.6 mg-docusate sodium 2 tab-cap PO BEDTIME Constipation 11/21/22 07/17/23 50 mg tablet tamsulosin 0.4 mg capsule 0.8 mg PO BEDTIME 11/21/22 07/17/23 trazodone 100 mg tablet 300 mg PO BEDTIME 11/21/22 07/17/23 cyclobenzaprine 10 mg tablet 10 mg PO TID PRN Muscle Spasm 01/31/23 07/17/23 duloxetine 60 mg capsule,delayed 60 mg PO DAILY 07/17/23 07/17/23 release sprinkle testosterone 1.62 % (20.25 mg/1.25 2 packet transdermal DAILY 07/17/23 07/17/23 gram) transdermal gel packet vitamin B complex 1 tab PO DAILY 07/17/23 07/17/23 Previous Rx's ?Medication ?Instructions ?Recorded nicotine (polacrilex) 2 mg gum 2 mg buccal Q2H PRN Nicotine 07/29/23 Cravings #100 ea Allergies Allergy/AdvReac Type Severity Reaction Status Date / Time No Known Allergies Allergy Verified 11/29/23 13:30 Review of Systems 2 Review of Systems: Yes all other systems are reviewed and are negative [facility] Past Medical History Medical History (Updated 11/29/23 @ 13:40 by TONI Hodge) Alcohol use disorder, severe, dependence Alcohol abuse Hyperlipidemia Depression with anxiety Diabetes Hypertension Social History Social History Household Members: None Household Members Other:: Self with a dog{ Parker} Housing: House Do you presently have visiting nurse or other home services: No Alcohol intake: current Alcohol intake frequency: 3 or more drinks per day Alcohol type: beer Comment: 1:1 sitter Patient Tobacco Use Status: Former Tobacco user Smoked in Last 30 Days: Yes Second Hand Smoke Exposure: No Use of substances other than those prescribed or required for medical reasons: No Substance Use Type: Marijuana Advance Directives: No Advance Directives Information Provided: No service: Yes Physical Exam ED Vital Signs: Vital Signs - 24 hr 11/29/23 13:26 11/29/23 14:07 Temperature 98.2 F Pulse Rate 124 H 107 H Respiratory Rate 18 18 Blood Pressure 126/85 Pulse Oximetry 87 L 93 Oxygen Delivery Method Room Air Room Air BMI result Body Mass Index 33.3 Appearance: Alert. Oriented X3. Restless, anxious Head: normocephalic, atraumatic. Eyes: Pupils equal, round and reactive to light. ENT: Pharynx normal. No tonsillar swelling or exudate. Neck: Normal inspection. Neck supple. CVS: Normal heart rate and rhythm. Pulses normal. Respiratory: No respiratory distress. Breath sounds diminished at the bilateral bases Abdomen: Softly distended, rotund with epigastric tenderness, mild guarding, normal active +BS x4 Skin: Skin warm and dry. Normal skin color. Normal skin turgor. No rashes. Extremities: No lower extremity edema. No joint swelling. Neuro/psych: Oriented X 3. No motor deficit. No sensory deficit. CN II-XII intact. Normal speech and cognition. Course Course Course Narrative: This is a Rapid Medical Examination (RME) performed by Abby May PA-C in triage. Full HPI, ROS, assessment and treatment plan per primary provider in the Main ED. 63 yo male hx of etoh abuse and withdrawal seizures requiring ICU stay secondary to aspiration PNA, HTN, DM here requesting detox. admits to daily etoh consumption (5th of vodka), last consumed today. last detoxed a few months ago. + mild tremors Plan: labs, UA, utox, ethanol Medications Administered Discontinued Medications Generic Name Dose Route Start Last Admin Trade Name Freq PRN Reason Stop Dose Admin Lactated Ringer's 1,000 mls @ 999 mls/hr 11/29/23 13:45 11/29/23 13:47 Lr IV 11/29/23 14:45 999 mls/hr .Q1H1M ANA Administration Piperacillin Sod/Tazobactam 100 mls @ 200 mls/hr 11/29/23 14:12 11/29/23 15:26 Sod 4.5 gm/ Sodium Chloride IV 11/29/23 14:41 Infused ONCE ONE Infusion Nicotine Polacrilex 2 mg 11/29/23 14:16 11/29/23 14:20 Nicotine Polacrilex 2 Mg Gum BUCCAL 11/29/23 14:17 2 mg ONCE ONE Administration Ondansetron HCl 4 mg 11/29/23 13:40 11/29/23 13:47 Ondansetron Hcl 4 Mg/2 Ml Vial IVPUSH 11/29/23 13:41 4 mg ONCE ONE Administration Phenobarbital Sodium 350 mg 11/29/23 14:00 11/29/23 13:53 Phenobarbital Sodium 130 Mg/Ml Im Once IM 11/29/23 14:01 350 mg ONCE ONE Administration Protocol Medical Decision Making Medical Decision Making [facility] Narrative: 63-year-old male with a history of severe alcohol use disorder, history of alcohol withdrawal seizures in the past, history of aspiration pneumonia requiring intubation in July during a stay for alcohol withdrawal who presents to the ER complaining of alcohol withdrawal symptoms including shakiness, upset stomach and nausea. He arrives to the ER tachycardic and hypoxic. He is afebrile. He has history of aspiration pneumonia in the past, reporting difficulty swallowing so he is covered with 1 dose of IV Zosyn. He was started on phenobarb protocol. Symptoms improved, vitals improved Lab work shows lactic acid of 3.8. This is likely due to alcoholic starvation ketosis and not acute infection. He does not have leukocytosis or fevers. Chest x-ray is negative for pneumonia. Will plan to admit the patient for further evaluation treatment of his alcohol withdrawal, hypoxia, most likely aspiration pneumonitis. Differential Diagnosis Differential Diagnoses: The differential diagnosis associated with the presentation includes Alcohol withdrawal, delirium tremens, aspiration pneumonia, pancreatitis, aspiration pneumonitis Admission/Observation Consideration of admission/observation: Escalation of care including admission/observation considered Consult Healthcare Provider Management of the patient was discussed with: Hospitalist Lab Data [facility] Lab Attestation statement: I reviewed the patient's lab results. Mildly elevated lactate with no anion gap, mildly hyperglycemic, no leukocytosis, normal renal function, normal LFTs normal lipase 11/29/23 13:40 11/29/23 13:40 Labs: Lab Results 11/29/23 11/29/23 Range/Units 13:40 13:44 WBC 7.5 (4.8-10.8) X10*3/uL RBC 5.01 (4.60-5.80) X10*6/uL Hgb 15.4 (14.0-18.0) g/dl Hct 44.3 (42.0-52.0) % MCV 88.4 (80.0-98.0) fL MCH 30.7 (27.0-33.0) pg MCHC 34.8 (31.0-36.0) g/dl RDW 14.4 (11.0-16.0) % Plt Count 226 (160-400) X10*3/uL MPV 10.0 (9.4-12.4) fL Immature Gran % (Auto) 0.3 (0.0-0.4) % Neut % (Auto) 58.7 (45-73) % Lymph % (Auto) 33.8 (20-40) % [place] % (Auto) 5.2 (2-11) % Eos % (Auto) 0.4 (0-4) % Baso % (Auto) 1.6 (0-2) % Lymph # (Auto) 2.5 (1.2-4.9) X10*3/uL [place] # (Auto) 0.4 (0.1-1.2) X10*3/uL Eos # (Auto) 0.0 (0.0-0.4) X10*3/uL Baso # (Auto) 0.1 (0.0-0.2) X10*3/uL Abs Immat Gran (auto) 0.02 (0.00-0.03) X10*3/uL Absolute Neuts (auto) 4.4 (2.0-8.3) x10*3/uL Absolute Nucleated RBC 0.000 (0.0-0.012) X10*3/uL Nucleated RBC % (auto) 0.0 (0.0-0.2) /100WBC Sodium 144 (135-145) mmol/L Potassium 4.6 D (3.3-5.1) mmol/L Chloride 104 (96-108) mmol/L Carbon Dioxide 28 (22-29) mmol/L Anion Gap 17 (12-20) BUN 10 (9-16) mg/dL Creatinine 0.87 (0.5-1.4) mg/dL Estim Creat Clear Calc 102.8 Estimated GFR > 60 Random Glucose 193 H (60-115) mg/dL Lactic Acid 3.8 H* (0.5-2.0) mmol/L Calcium 9.8 (8.4-10.2) mg/dL Magnesium 2.1 (1.6-2.6) mg/dL Total Bilirubin 0.4 (0.0-1.0) mg/dL AST 29 (5-37) U/L ALT 24 (0-40) U/L Alkaline Phosphatase 71 (39-117) U/L Total Protein 7.6 (6.5-8.0) g/dL Albumin 4.4 (3.5-5.0) g/dL Lipase 12 (8-78) U/L Ethyl Alcohol 204 mg/dL Independent Interpretation I performed an independent interpretation of an: EKG and Plain X-Ray Interpretation: Chest x-ray without focal opacities to suggest pneumonia EKG with sinus tachycardia, ventricular rate 105 beats per minute, normal IL interval, normal QTC, no ST segment elevations or depressions Radiology Impression Discussion of test interpretation with radiology: I have reviewed the radiologist's reading. Independent Historian Clinical information obtained from an independent historian. History obtained from or confirmed by: Other (sister) External Record Review External record reviewed: Outpatient record, Prior outpatient labs and Prior outpatient radiology Prescription Management I considered prescription management with: Pain Medication, Antibiotic and Other (benzo, phenobarb) Chronic Conditions Patient?s care impacted by: Diabetes, Hypertension and Other (ETOH use d/o) Social Determinants Patient?s care significantly limited by Social Determinants of Health including: Alcoholism and drug addiction in family and Problems related to primary support group Critical Care Time Critical Care Time Critical Care Time: Yes Total Critical Care Time: 44 Attestation: I have personally provided critical care time exclusive of time spent on separately billable procedures. Time includes review of lab data, radiology results, discussion with consultants, and monitoring for potential decompensation. Intervention performed as documented. Discharge Plan Discharge Clinical Impression: Alcohol withdrawal syndrome Patient Disposition: Admitted As Inpatient Print Language: Estonian
--- NOTE | 2023-11-29 13:40 | ECG_ITS ---
Test Reason : ETOH WITHDRAWAL Blood Pressure : / mmHG Vent. Rate : 105 BPM Atrial Rate : 105 BPM P-R Int : 186 ms QRS Dur : 090 ms QT Int : 320 ms P-R-T Axes : 047 -27 049 degrees QTc Int : 422 ms Sinus tachycardia Abnormal ECG When compared with ECG of 22-JUL-2023 10:26, Vent. rate has increased BY 36 BPM Premature atrial complexes are no longer Present Referred By: Ny Purvis Electronically Signed By:JANN HAMPTON
[2023-11-29 13:47] LABS: MANUAL DIFF FLAG NO
[2023-11-29] MEDS: Lactated Ringers 1,000 ML 999 ML IV (13:47)
[2023-11-29] MEDS: ondansetron HCL 4 MG/2 ML VIAL IVPUSH (13:47)
[2023-11-29 13:48] LABS: Basophils Absolute Auto 0.1 X10*3/uL (0.0-0.2); Basophils Percent Auto 1.6 % (0-2); Eosinophils Percent Auto 0.4 % (0-4); Hematocrit 44.3 % (42.0-52.0); Hemoglobin 15.4 g/dl (14.0-18.0); Imm Gran Abs Auto 0.02 X10*3/uL (0.00-0.03); Imm Gran Pct Auto 0.3 % (0.0-0.4); Lymphocytes Absolute Auto 2.5 X10*3/uL (1.2-4.9); Lymphocytes Percent Auto 33.8 % (20-40); Mean Corpuscular HGB Conc 34.8 g/dl (31.0-36.0); Mean Corpuscular Hemoglobin 30.7 pg (27.0-33.0); Mean Corpuscular Volume 88.4 fL (80.0-98.0); Monocytes Absolute Auto 0.4 X10*3/uL (0.1-1.2); Monocytes Percent Auto 5.2 % (2-11); Neutrophils Absolute Auto 4.4 x10*3/uL (2.0-8.3); Neutrophils Percent Auto 58.7 % (45-73); Platelet Count 226 X10*3/uL (160-400); Red Blood Count 5.01 X10*6/uL (4.60-5.80); Red Cell Distribution Width 14.4 % (11.0-16.0); White Blood Count 7.5 X10*3/uL (4.8-10.8)
[2023-11-29] MEDS: PHENobarbitaL sodium 130 MG/ML IM ONCE 350 MG IM (13:53)
[2023-11-29 14:03] LABS: Alanine Aminotransferase 24 U/L (0-40); Albumin Level 4.4 g/dL (3.5-5.0); Alkaline Phosphatase 71 U/L (39-117); Anion Gap 17 (12-20); Aspartate Amino Transferase 29 U/L (5-37); Bilirubin Total 0.4 mg/dL (0.0-1.0); Blood Urea Nitrogen 10 mg/dL (9-16); Calcium 9.8 mg/dL (8.4-10.2); Carbon Dioxide 28 mmol/L (22-29); Chloride 104 mmol/L (96-108); Creatinine Clr Calc Pharmacy 102.8; Estimated Glomerular Filt Rate > 60; Ethanol 204 mg/dL; Glucose Random 193 mg/dL (60-115); Lipase 12 U/L (8-78); Magnesium 2.1 mg/dL (1.6-2.6); Potassium 4.6 mmol/L (3.3-5.1); Sodium 144 mmol/L (135-145); Total Protein 7.6 g/dL (6.5-8.0)
[2023-11-29 14:07] VITALS: PULSE 107; RESP 18; O2SAT 93
[2023-11-29 14:13] LABS: Lactic Acid 3.8 mmol/L (0.5-2.0)
[2023-11-29] MEDS: Nicotine Polacrilex 2 MG GUM BUCCAL (14:20)
[2023-11-29] MEDS: Piperacillin Sodium/Tazobactam 4.5 GM in 0.9 % Sodium Chloride 100 ML IV ×2 (14:25→19:59)
--- NOTE | 2023-11-29 15:24 | PC.NURSE ---
Patient states has had trouble swallowing for a few months when eating or taking pills. Provider aware
[2023-11-29 15:46] LABS: Reflex Lactate? Lactic Acid Added
--- NOTE | 2023-11-29 17:19 | PC.NURSE ---
Patient resting comfortably, breathing even and unlabored. vss
--- NOTE | 2023-11-29 17:20 | P.HPHOSP_ITS ---
History of Present Illness Date of Service: 11/29/23 Attending physician on admission: David Robles Chief Complaint: Alcohol withdrawal Pt is a 63-year-old male with a PMH significant for?HTN, HLD, [id number] type 2 diabetes, BPH, alcohol use disorder with hx of withdrawal seizures, hx of opioid use disorder on Suboxone, hx of aspiration pneumonia requiring emergent intubation in the past, anxiety, and depression who presents to the ED requesting detox. Patient is somnolent but arousable at time of interview and exam however appears acutely intoxicated with slurred speech and immediately falling back asleep before fully answering questions. HPI is thus obtained from chart and provider review. Patient reports drinking at least a 5th of 100 proof vodka daily as well as on unknown amount of beer. Last drink approximately 3-4 hours before presentation. Patient complains of throat discomfort and nausea with possible vomiting earlier in the day. Denies significant shortness of breath. No chest pain. Denies auditory or visual hallucinations. In the ED pt was tachycardic up to 124 and satting as low as 87% on room air. Labs were significant for lactic acid 3.8 and ethyl alcohol level 204, otherwise grossly unremarkable. No leukocytosis. Stable H& H. No significant electrolyte abnormalities. Renal and hepatic function baseline. CXR showed no acute cardiopulmonary findings. EKG demonstrated sinus tachycardia of 105 with QT of 422. Pt was treated with IVF, ondansetron, Zosyn, and started on phenobarb protocol. Pt will be admitted to the hospital for treatment and further evaluation of acute hypoxic respiratory failure likely secondary to aspiration pneumonia in the setting of acute alcohol intoxication. Review of Systems 2 Review of Systems: Difficult to obtain due to patient's somnolence Throat discomfort Nausea, possible vomiting Denies SOB No chest pain/pressure, palpitations Denies auditory or visual hallucinations [facility] Medical History (Updated 11/29/23 @ 13:40 by TONI Hodge) Alcohol use disorder, severe, dependence Alcohol abuse Hyperlipidemia Depression with anxiety Diabetes Hypertension Social History Household Members: None Household Members Other:: Self with a dog{ Parker} Housing: House Do you presently have visiting nurse or other home services: No Alcohol intake: current Alcohol intake frequency: 3 or more drinks per day Alcohol type: beer Comment: 1:1 sitter Patient Tobacco Use Status: Former Tobacco user Smoked in Last 30 Days: Yes Second Hand Smoke Exposure: No Use of substances other than those prescribed or required for medical reasons: No Substance Use Type: Marijuana Advance Directives: No Advance Directives Information Provided: No service: Yes Meds Allergies Allergy/AdvReac Type Severity Reaction Status Date / Time No Known Allergies Allergy Verified 11/29/23 13:30 Active Medications: Current Medications Pharmacy Consult (Consult Rx Etoh Phenob Im/Po) 1 each MISCELLANE ONCE PRN; Protocol PRN Reason: Consult order Phenobarbital (Phenobarbital 15 Mg Tablet) 45 mg PO BID ANA; Protocol Stop: 12/01/23 21:01 Phenobarbital (Phenobarbital 30 Mg Tablet) 30 mg PO BID ANA; Protocol Stop: 12/03/23 21:01 Phenobarbital (Phenobarbital 30 Mg Tablet) 30 mg PO DAILY ANA; Protocol Stop: 12/05/23 09:01 Phenobarbital Sodium (Phenobarbital Sodium 130 Mg/Ml Vial Im Q3hx2) 265 mg IM Q3H ANA; Protocol Stop: 11/29/23 20:01 Home Medications ?Medication ?Instructions ?Recorded ?Confirmed ?Last Taken ?Type acyclovir 400 mg tablet 400 mg PO BID 11/21/22 07/17/23 07/17/23 History atorvastatin 20 mg tablet 10 mg PO BEDTIME 11/21/22 07/17/23 07/16/23 History buprenorphine 8 mg-naloxone 2 mg 1 film buccal BID 11/21/22 07/17/23 07/17/23 History sublingual film (Suboxone) buspirone 5 mg tablet 5 mg PO BID 11/21/22 07/17/23 07/17/23 History finasteride 5 mg tablet 5 mg PO DAILY 11/21/22 07/17/23 07/17/23 History gabapentin 400 mg capsule 1,200 mg PO TID Anxiety/Pain 11/21/22 07/17/23 07/17/23 History hydroxyzine HCl 25 mg tablet 25 mg PO BEDTIME 11/21/22 07/17/23 07/16/23 History melatonin 5 mg tablet 5 mg PO BEDTIME 11/21/22 07/17/23 07/17/23 History metformin 1,000 mg tablet 1,000 mg PO DAILY 11/21/22 07/17/23 07/17/23 History metoprolol succinate 25 mg capsule 25 mg PO BEDTIME 11/21/22 07/17/23 07/16/23 History sprinkle, ext. release 24 hr multivitamin 1 tab PO DAILY 11/21/22 07/17/23 07/17/23 History sennosides 8.6 mg-docusate sodium 2 tab-cap PO BEDTIME Constipation 11/21/22 07/17/23 07/16/23 History 50 mg tablet tamsulosin 0.4 mg capsule 0.8 mg PO BEDTIME 11/21/22 07/17/23 07/16/23 History trazodone 100 mg tablet 300 mg PO BEDTIME 11/21/22 07/17/23 07/16/23 History cyclobenzaprine 10 mg tablet 10 mg PO TID PRN Muscle Spasm 01/31/23 07/17/23 Unknown History duloxetine 60 mg capsule,delayed 60 mg PO DAILY 07/17/23 07/17/23 07/17/23 History release sprinkle testosterone 1.62 % (20.25 mg/1.25 2 packet transdermal DAILY 07/17/23 07/17/23 07/17/23 History gram) transdermal gel packet vitamin B complex 1 tab PO DAILY 07/17/23 07/17/23 07/17/23 History Physical Exam 2 Vital Signs and Narrative: Vital Signs: Last Vital Signs Temp 98.2 F 11/29/23 13:26 Pulse 107 H 11/29/23 14:07 Resp 18 11/29/23 14:07 BP 126/85 11/29/23 13:26 Pulse Ox 93 11/29/23 14:07 O2 Del Method Room Air 11/29/23 14:07 BMI result Body Mass Index 33.3 General: AOx3, somnolent but arousable. Appears acutely intoxicated, falls back asleep during interview and exam without fully answering questions. In no acute distress Resp: Difficult to auscultate due to patient sleeping during exam, snoring. No accessory muscle use CVS: S1, S2, regular rate, tachycardic GI: +BS, NT, no distention Skin: Warm, dry Neuro: Cranial nerves II-XII grossly intact bilaterally. Motor grossly intact bilaterally Extremities: No edema Results Labs 11/29/23 13:40 11/29/23 13:40 Labs: Laboratory Results - last 24 hr 11/29/23 11/29/23 13:40 13:44 MCV 88.4 MCH 30.7 MCHC 34.8 RDW 14.4 Plt Count 226 MPV 10.0 Immature Gran % (Auto) 0.3 Neut % (Auto) 58.7 Lymph % (Auto) 33.8 [place] % (Auto) 5.2 Eos % (Auto) 0.4 Baso % (Auto) 1.6 Lymph # (Auto) 2.5 [place] # (Auto) 0.4 Eos # (Auto) 0.0 Baso # (Auto) 0.1 Abs Immat Gran (auto) 0.02 Absolute Neuts (auto) 4.4 Absolute Nucleated RBC 0.000 Nucleated RBC % (auto) 0.0 Anion Gap 17 Estim Creat Clear Calc 102.8 Estimated GFR > 60 Random Glucose 193 H Lactic Acid 3.8 H* Calcium 9.8 Magnesium 2.1 Total Bilirubin 0.4 AST 29 ALT 24 Alkaline Phosphatase 71 Total Protein 7.6 Albumin 4.4 Lipase 12 Ethyl Alcohol 204 Imaging Radiologist's Impressions: Impressions Chest X-Ray 11/29/23 13:35 IMPRESSION: No acute cardiopulmonary findings. Electronically signed by: Mindi Brown MD 11/29/2023 03:17 PM EDT RP Assessment and Plan (1) Aspiration pneumonia: Status: Acute (2) Alcohol withdrawal syndrome: Qualifiers: Complication of substance-induced condition: uncomplicated Qualified Code(s): F10.930 - Alcohol use, unspecified with withdrawal, uncomplicated Status: Acute Plan Pt is a 63-year-old male with a PMH significant for?HTN, HLD, tsm-pnowphe-qkfqwqawh type 2 diabetes, BPH, alcohol use disorder with hx of withdrawal seizures, hx of opioid use disorder on Suboxone, hx of aspiration pneumonia requiring emergent intubation in the past, anxiety, and depression who presents to the ED requesting detox. Pt will be admitted to the hospital for treatment and further evaluation of acute hypoxic respiratory failure likely secondary to aspiration pneumonia in the setting of acute alcohol intoxication. Acute hypoxic respiratory failure in the setting of likely aspiration pneumonia Patient desatting into 80s on RA, has been nauseous with possible vomiting earlier in the morning Does not meet sepsis criteria: Tachycardia, but no tachypnea, fever, or leukocytosis Will treat with Zosyn Titrate supplemental O2 >92, wean as tolerated Monitor respiratory status Follow cultures Acute alcohol intoxication with imminent withdrawal Ethyl alcohol level 204 at time of presentation Moderate upper extremity tremors, hx of withdrawal seizures Received IVF, and started on phenobarb in the ED Continue Phenobarb protocol Daily multivitamin, folic acid, thiamine Place on maintenance fluids Famotidine Follow lytes, Mag, BMP CIWA scale Seizure protocols Addiction medicine consult Monitor on telemetry Lactic acidosis Initial acid 3.8 at time of presentation Secondary to metformin use, not sepsis Trend lactic acid HTN Continue lisinopril, metoprolol Non-insulin dependent diabetes type 2 Hold metformin SSI, diabetic diet BPH Continue tamsulosin Polysubstance use disorder Continue Suboxone Mood disorder Continue buspirone, duloxetine, hydroxyzine Full Code Attending:?Dr. Robles DVT Prophylaxis: Lovenox Given pt's hx of alcohol withdrawal with seizures, patient will be admitted to the hospital for at least 2 nights stay for treatment and further evaluation of acute hypoxic respiratory failure secondary to likly aspiration pneumonia in the setting of acute alcohol intoxication in a patient requesting detox. Patient will require administration of IV antibiotics, supplemental oxygen, phenobarb protocol for imminent alcohol withdrawal, as well as close monitoring of labs and cardiac function. Quality Stroke Does the patient have a stroke diagnosis?: No VTE Prior VTE?: No VTE Risk Level:: Medical - moderate - high VTE Device Contraindication: Treatment Not Indicated VTE Drug Contraindication: N/A - Med Ordered
[2023-11-29 17:25] VITALS: BP 112/76; PULSE 112; RESP 18; TEMP 37.1; O2SAT 98
[2023-11-29] MEDS: PHENobarbitaL sodium 130 MG/ML VIAL IM Q3Hx2 265 MG IM ×2 (17:28→19:59)
[2023-11-29 17:52] VITALS: O2SAT 95
--- NOTE | 2023-11-29 17:52 | PC.NURSE ---
While patient is sleeping, mouth breakthing sating 87%. Placed on 4 liters oxy mask sating 95%
[2023-11-29] MEDS: Enoxaparin Sodium 40 MG/0.4 ML SYRINGE SUBCUT (18:20)
[2023-11-29] MEDS: Lactated Ringers 1,000 ML 100 ML IVCONT (18:47)
[2023-11-29 19:29] VITALS: BP 136/77; PULSE 116; RESP 11; TEMP 36.2; O2SAT 89
[2023-11-29] MEDS: Famotidine 20 MG TABLET PO (19:59)
--- NOTE | 2023-11-29 20:33 | PHA.MEDREC ---
Pharmacy Consult ? Medication Reconciliation Pharmacy has completed the medication reconciliation. Tried to talk to patient twice but he was sound asleep. Med rec was done using med list from [place]. [facility] was used to verify fills for suboxone and testosterone.
[2023-11-29 21:04] LABS: Glucose, Whole Blood 123 mg/dL (60-115)
[2023-11-29 22:35] LABS: ~Lactic Acid-LAB USE ONLY 3.2 mmol/L (0.5-2.0)
[2023-11-29 22:51] LABS: Cancel Lactic Acid Canceled
[2023-11-29 23:04] VITALS: BP 145/95; PULSE 103; RESP 13; TEMP 36.9; O2SAT 97
[2023-11-30] VITALS (7 sets, daily range): BP systolic 135–170; BP diastolic 67–95; PULSE 96–119; RESP 18–20; TEMP 36.3–37.1; O2SAT 88–97
[2023-11-30] MEDS: Piperacillin Sodium/Tazobactam 4.5 GM in 0.9 % Sodium Chloride 100 ML IV ×4 (01:40→19:52)
[2023-11-30] MEDS: ondansetron HCL 4 MG/2 ML VIAL IVPUSH (02:28)
[2023-11-30] MEDS: Lactated Ringers 1,000 ML 100 ML IVCONT ×2 (06:42→17:09)
[2023-11-30 07:26] LABS: Anion Gap 15 (12-20); Blood Urea Nitrogen 12 mg/dL (9-16); Calcium 8.9 mg/dL (8.4-10.2); Carbon Dioxide 29 mmol/L (22-29); Chloride 101 mmol/L (96-108); Estimated Glomerular Filt Rate > 60; Glucose Random 166 mg/dL (60-115); Potassium 4.7 mmol/L (3.3-5.1); Sodium 140 mmol/L (135-145)
[2023-11-30 07:39] LABS: Glucose, Whole Blood 170 mg/dL (60-115)
[2023-11-30] MEDS: DULoxetine HCl 60 MG CAPSULE.DR 120 MG PO (09:10)
[2023-11-30] MEDS: PHENobarbitaL 15 MG TABLET 45 MG PO ×2 (09:10→19:47)
[2023-11-30] MEDS: Acamprosate Calcium 333 MG TABLET.DR 666 MG PO ×3 (09:10→19:46)
[2023-11-30] MEDS: Cholecalciferol (Vitamin D3) 25 MCG TABLET 50 MCG PO (09:10)
[2023-11-30] MEDS: Buprenorphine/Naloxone 8/2 mg FILM 2 FILM BUCCAL (09:11)
[2023-11-30] MEDS: Sennosides 8.6 MG TABLET 17.2 MG PO (09:11)
[2023-11-30] MEDS: Insulin Lispro 100 UNIT/ML 3 ML VIAL SUBCUT ×3 (09:11→20:58)
[2023-11-30] MEDS: Thiamine HCL 100 MG TABLET PO (09:11)
[2023-11-30] MEDS: Famotidine 20 MG TABLET PO ×2 (09:11→19:47)
[2023-11-30] MEDS: busPIRone HCl 5 MG TABLET PO ×2 (09:11→19:47)
[2023-11-30] MEDS: Finasteride 5 MG TABLET PO (09:11)
[2023-11-30] MEDS: Magnesium Oxide 400 MG TABLET PO (09:11)
[2023-11-30] MEDS: Folic Acid 1 MG TABLET PO (09:11)
[2023-11-30] MEDS: Multivitamin TABLET 1 TAB PO (09:11)
[2023-11-30] MEDS: 0.9 % Sodium Chloride Flush 3 ML SYRINGE IVFLUSH ×2 (09:12→19:47)
[2023-11-30] MEDS: polyethylene glycoL 3350 17 GM POWD.PACK PO (09:15)
[2023-11-30 11:33] LABS: Glucose, Whole Blood 168 mg/dL (60-115)
[2023-11-30] MEDS: Nicotine Polacrilex 2 MG GUM BUCCAL ×2 (14:34→16:43)
[2023-11-30] MEDS: Tamsulosin HCL 0.4 MG CAPSULE 0.8 MG PO (15:42)
--- NOTE | 2023-11-30 15:46 | HO.PM.IMPN ---
Subjective Subjective Date of Service: 11/30/23 Interval History: Somnolent but arousable. No seizures Review of Systems Unable to obtain Physical Exam Vital Signs: Vital Signs: Last Vital Signs Temp 98.7 F 11/30/23 12:00 Pulse 115 H 11/30/23 12:00 Resp 20 11/30/23 12:00 BP 138/79 11/30/23 12:00 Pulse Ox 94 11/30/23 12:00 O2 Del Method Nasal Cannula 11/30/23 12:00 O2 Flow Rate 2 11/30/23 12:00 BMI result Body Mass Index 33.3 Const: Other: Somnolent but arousable. No seizure activity Resp: Other: Clear to auscultation bilaterally no rales rhonchi wheezes Cardio: Other: No S4; positive S1-S2; no S3 murmurs rubs or gallops GI: Other: Soft nontender nondistended normoactive bowel sounds Neuro: Other: Moving all extremities with equal power Extrem: Other: No edema bilaterally Objective Data Active Medications Acamprosate (Acamprosate Calcium 333 Mg Tablet.) 666 mg PO TID ON LICENSE OF [facility] Last Admin: 11/30/23 15:41 Dose: 666 mg Documented By: AIRAM Acetaminophen (Acetaminophen 325 Mg Tablet) 650 mg PO Q6H PRN PRN Reason: Pain, Mild (Pain Scale 1-3), fever or headache Atorvastatin Calcium (Atorvastatin Calcium 10 Mg Tablet) 10 mg PO BEDTIME ON LICENSE OF [facility] Benzonatate (Benzonatate 100 Mg Capsule) 100 mg PO TID PRN PRN Reason: Cough Buprenorphine/Naloxone (Buprenorphine/Naloxone 8/2 Mg Film) 2 film BUCCAL DAILY ON LICENSE OF [facility] Last Admin: 11/30/23 09:11 Dose: 2 film Documented By: SHARITA Buspirone HCl (Buspirone Hcl 5 Mg Tablet) 5 mg PO BID ON LICENSE OF [facility] Last Admin: 11/30/23 09:11 Dose: 5 mg Documented By: SHARITA Calcium Carbonate (Calcium Carbonate 750 Mg Tab.Chew) 750 mg PO Q4H PRN PRN Reason: Heartburn Cyclobenzaprine HCl (Cyclobenzaprine Hcl 10 Mg Tablet) 10 mg PO TID PRN PRN Reason: Muscle Spasm Duloxetine HCl (Duloxetine Hcl 60 Mg Capsule.) 120 mg PO DAILY ON LICENSE OF [facility] Last Admin: 11/30/23 09:10 Dose: 120 mg Documented By: SHARITA Enoxaparin Sodium (Enoxaparin Sodium 40 Mg/0.4 Ml Syringe) 40 mg SUBCUT Q24H ON LICENSE OF [facility] Last Admin: 11/29/23 18:20 Dose: 40 mg Documented By: JANN Famotidine (Famotidine 20 Mg Tablet) 20 mg PO BID ON LICENSE OF [facility] Last Admin: 11/30/23 09:11 Dose: 20 mg Documented By: SHARITA Finasteride (Finasteride 5 Mg Tablet) 5 mg PO DAILY ON LICENSE OF [facility] Last Admin: 11/30/23 09:11 Dose: 5 mg Documented By: SHARITA Folic Acid (Folic Acid 1 Mg Tablet) 1 mg PO DAILY ON LICENSE OF [facility] Stop: 12/03/23 08:59 Last Admin: 11/30/23 09:11 Dose: 1 mg Documented By: SHARITA Gabapentin (Gabapentin 600 Mg Tablet) 1,200 mg PO TID PRN PRN Reason: Anxiety/Neuropathic Pain Glucose (Glucose Gel 15 Gm Gel..Gram.) 15 gm PO Q15M PRN; Protocol PRN Reason: per Hypoglycemia Standing Ord. Hydroxyzine HCl (Hydroxyzine Hcl 25 Mg Tablet) 25 mg PO BEDTIME PRN PRN Reason: Sleep Dextrose (D10) 250 mls @ 750 mls/hr IV Q15M PRN; Protocol PRN Reason: per Hypoglycemia Standing Ord. Lactated Ringer's (Lr) 1,000 mls @ 100 mls/hr IVCONT .Q10H ON LICENSE OF [facility] Last Admin: 11/30/23 15:41 Dose: Not Given Documented By: AIRAM Non-Admin Reason: IV Running Piperacillin Sod/Tazobactam (Sod 4.5 gm/ Sodium Chloride) 100 mls @ 200 mls/hr IV Q6H ON LICENSE OF [facility] Last Infusion: 11/30/23 15:04 Dose: Infused Documented By: SHARITA Insulin Human Lispro (Insulin Lispro 100 Unit/Ml 3 Ml Vial) 0 unit SUBCUT QIDACHS ON LICENSE OF [facility]; Protocol Last Admin: 11/30/23 12:52 Dose: 2 unit Documented By: SHARITA Magnesium Hydroxide (Milk Of Magnesia 30 Ml Oral.Susp) 30 ml PO DAILY PRN PRN Reason: Constipation Magnesium Oxide (Magnesium Oxide 400 Mg Tablet) 400 mg PO DAILY ON LICENSE OF [facility] Last Admin: 11/30/23 09:11 Dose: 400 mg Documented By: SHARITA Metoprolol Succinate (Metoprolol Succinate Er 25 Mg Tab.Er.24h) 25 mg PO BEDTIME ON LICENSE OF [facility]; Protocol Multivitamins/Vitamin C (Multivitamin Tablet) 1 tab PO DAILY ON LICENSE OF [facility] Stop: 12/03/23 08:59 Last Admin: 11/30/23 09:11 Dose: 1 tab Documented By: SHARITA Nicotine Polacrilex (Nicotine Polacrilex 2 Mg Gum) 2 mg BUCCAL Q2H PRN PRN Reason: Nicotine Cravings Last Admin: 11/30/23 14:34 Dose: 2 mg Documented By: SHARITA Ondansetron HCl (Ondansetron Hcl 4 Mg/2 Ml Vial) 4 mg IVPUSH Q8H PRN PRN Reason: Nausea and Vomiting Last Admin: 11/30/23 02:28 Dose: 4 mg Documented By: GABI Pharmacy Consult (Consult Rx Etoh Phenob Im/Po) 1 each MISCELLANE ONCE PRN; Protocol PRN Reason: Consult order Phenobarbital (Phenobarbital 15 Mg Tablet) 45 mg PO BID ON LICENSE OF [facility]; Protocol Stop: 12/01/23 21:01 Last Admin: 11/30/23 09:10 Dose: 45 mg Documented By: SHARITA Phenobarbital (Phenobarbital 30 Mg Tablet) 30 mg PO BID ON LICENSE OF [facility]; Protocol Stop: 12/03/23 21:01 Phenobarbital (Phenobarbital 30 Mg Tablet) 30 mg PO DAILY ON LICENSE OF [facility]; Protocol Stop: 12/05/23 09:01 Polyethylene Glycol (Polyethylene Glycol 3350 17 Gm Powd.Pack) 17 gm PO DAILY ON LICENSE OF [facility] Last Admin: 11/30/23 09:15 Dose: 17 gm Documented By: SHARITA Senna (Sennosides 8.6 Mg Tablet) 17.2 mg PO DAILY ON LICENSE OF [facility] Last Admin: 11/30/23 09:11 Dose: 17.2 mg Documented By: SHARITA Sodium Chloride (0.9 % Sodium Chloride Flush 3 Ml Syringe) [facility] Last Admin: 11/30/23 15:16 Dose: Not Given Documented By: AIRAM Non-Admin Reason: IV Running Tamsulosin HCl (Tamsulosin Hcl 0.4 Mg Capsule) 0.8 mg PO DAILY@1730 ON LICENSE OF [facility] Last Admin: 11/30/23 15:42 Dose: 0.8 mg Documented By: AIRAM Thiamine HCl (Thiamine Hcl 100 Mg Tablet) 100 mg PO DAILY ON LICENSE OF [facility] Stop: 12/03/23 08:59 Last Admin: 11/30/23 09:11 Dose: 100 mg Documented By: SHARITA Trazodone HCl (Trazodone Hcl 100 Mg Tablet) 200 mg PO BEDTIME PRN PRN Reason: Insomnia Vitamin D (Cholecalciferol (Vitamin D3) 25 Mcg Tablet) 50 mcg PO DAILY ON LICENSE OF [facility] Last Admin: 11/30/23 09:10 Dose: 50 mcg Documented By: SHARITA Labs 11/29/23 13:40 11/30/23 06:29 Labs: Laboratory Results - last 24 hr 11/29/23 11/29/23 11/30/23 21:00 22:18 06:29 Anion Gap 15 Estim Creat Clear Calc 109.0 Estimated GFR > 60 POC Glucose 123 H Random Glucose 166 H Lactic Acid F/U @ 2Hr 3.2 H* Calcium 8.9 D Magnesium 2.0 11/30/23 11/30/23 07:11 10:57 Anion Gap Estim Creat Clear Calc Estimated GFR POC Glucose 170 H 168 H Random Glucose Lactic Acid F/U @ 2Hr Calcium Magnesium Assessment and Plan (1) Aspiration pneumonia: Status: Acute (2) Alcohol withdrawal syndrome: Status: Acute Plan Pt is a 63-year-old male with a PMH significant for?HTN, HLD, [id number] type 2 diabetes, BPH, alcohol use disorder with hx of withdrawal seizures, hx of opioid use disorder on Suboxone, hx of aspiration pneumonia requiring emergent intubation in the past, anxiety, and depression who presents to the ED requesting detox. 1.Acute hypoxic respiratory failure in the setting of likely aspiration pneumonia -Zosyn (2) -titrate O2 to maintain sats greater than equal to 92% 2.Acute alcohol withdrawal -continue score 8 -10 on CIWA scale.. No seizures -continue phenobarb protocol; aspiration precautions -adjust phenobarb as clinically indicated 3.HTN -acceptable control on current therapies -adjust as indicated 4. Diabetes type 2 -acceptable control on current therapies -lispro correctional scale -adjust as indicated 5.Polysubstance use disorder -Suboxone Full Code Lovenox Requires ongoing hospitalization for phenobarb to treat acute alcohol withdrawal; IV antibiotics to treat aspiration pneumonia Quality Stroke Does the patient have a stroke diagnosis?: No VTE Prior VTE?: No VTE Risk Level:: Medical - moderate - high VTE Device Contraindication: Treatment Not Indicated VTE Drug Contraindication: N/A - Med Ordered
[2023-11-30] MEDS: LORazepam 2 MG/ML VIAL 1 MG IVPUSH (16:03)
[2023-11-30 16:26] LABS: Glucose, Whole Blood 127 mg/dL (60-115)
[2023-11-30] MEDS: PHENobarbitaL sodium 130 MG/ML VIAL 265 MG IM (17:06)
[2023-11-30] MEDS: Enoxaparin Sodium 40 MG/0.4 ML SYRINGE SUBCUT (17:07)
[2023-11-30] MEDS: LORazepam 2 MG/ML VIAL IVPUSH (18:18)
[2023-11-30] MEDS: Atorvastatin Calcium 10 MG TABLET PO (19:47)
[2023-11-30] MEDS: Metoprolol Succinate ER 25 MG TAB.ER.24H PO (19:47)
[2023-11-30 21:02] LABS: Glucose, Whole Blood 156 mg/dL (60-115)
[2023-11-30] MEDS: traZODone HCL 100 MG TABLET 200 MG PO (22:41)
[2023-12-01] MEDS: Lactated Ringers 1,000 ML 100 ML IVCONT (00:01)
[2023-12-01] MEDS: Piperacillin Sodium/Tazobactam 4.5 GM in 0.9 % Sodium Chloride 100 ML IV ×4 (02:19→19:40)
[2023-12-01 03:52] VITALS: BP 130/86; PULSE 89; RESP 20; TEMP 36.2; O2SAT 92
[2023-12-01 04:13] LABS: Appearance Urine Clear; Color Urine Yellow; Glucose Urine UA Negative (Negative); Leukocyte Esterase Urine Negative (Negative); Nitrite Urine Negative (Negative); PH 6.5 (5.0-9.0); Specific Gravity - Urine 1.015 (1.005-1.025); Urine Blood Negative (Negative); Urine Ketones Negative (Negative); Urine Protein Trace mg/dL (Neg-Trace)
[2023-12-01 04:25] LABS: Amphetamine Screen Urine Not Detected (Not Detect); Barbiturates, Urine POSITIVE (Not Detect); Benzodiazepines Screen Urine Not Detected (Not Detect); Buprenorphine Scr Positive (Not Detect); Cannabinoid Screen Urine POSITIVE (Not Detect); Cocaine Screen Urine Not Detected (Not Detect); Fentanyl, urine Not Detected (Not Detect); Methadone Screen, Urine Not Detected (Not Detect); Opiate Screen Urine Not Detected (Not Detect); Oxycodone Screen Urine Not Detected (Not Detect); Phencyclidine Screen Urine Not Detected (Not Detect)
[2023-12-01] MEDS: polyethylene glycoL 3350 17 GM POWD.PACK PO (07:45)
[2023-12-01] MEDS: Buprenorphine/Naloxone 8/2 mg FILM 2 FILM BUCCAL (07:45)
[2023-12-01] MEDS: Famotidine 20 MG TABLET PO ×2 (07:46→19:49)
[2023-12-01] MEDS: Acamprosate Calcium 333 MG TABLET.DR 666 MG PO ×3 (07:46→19:48)
[2023-12-01] MEDS: Acetaminophen 325 MG TABLET 650 MG PO ×2 (07:46→19:47)
[2023-12-01] MEDS: Finasteride 5 MG TABLET PO (07:46)
[2023-12-01] MEDS: busPIRone HCl 5 MG TABLET PO ×2 (07:46→19:47)
[2023-12-01] MEDS: Gabapentin 600 MG TABLET 1200 MG PO ×2 (07:46→14:50)
[2023-12-01] MEDS: Magnesium Oxide 400 MG TABLET PO (07:47)
[2023-12-01] MEDS: DULoxetine HCl 60 MG CAPSULE.DR 120 MG PO (07:47)
[2023-12-01] MEDS: Sennosides 8.6 MG TABLET 17.2 MG PO (07:47)
[2023-12-01] MEDS: Thiamine HCL 100 MG TABLET PO (07:47)
[2023-12-01] MEDS: Folic Acid 1 MG TABLET PO (07:47)
[2023-12-01] MEDS: Multivitamin TABLET 1 TAB PO (07:47)
[2023-12-01] MEDS: Cholecalciferol (Vitamin D3) 25 MCG TABLET 50 MCG PO (07:47)
[2023-12-01] MEDS: 0.9 % Sodium Chloride Flush 3 ML SYRINGE IVFLUSH ×3 (07:48→19:49)
[2023-12-01] MEDS: PHENobarbitaL 15 MG TABLET 45 MG PO ×2 (07:48→19:47)
[2023-12-01 07:59] LABS: Glucose, Whole Blood 138 mg/dL (60-115)
[2023-12-01 08:00] VITALS: BP 153/89; PULSE 88; RESP 20; TEMP 36.8; O2SAT 90
[2023-12-01 09:02] LABS: Anion Gap 12 (12-20); Blood Urea Nitrogen 9 mg/dL (9-16); Calcium 8.5 mg/dL (8.4-10.2); Carbon Dioxide 31 mmol/L (22-29); Chloride 100 mmol/L (96-108); Creatinine Clr Calc Pharmacy 105.2; Estimated Glomerular Filt Rate > 60; Glucose Random 175 mg/dL (60-115); Potassium 3.9 mmol/L (3.3-5.1); Sodium 139 mmol/L (135-145)
--- NOTE | 2023-12-01 09:19 | MHC.CM.PN ---
Addendum entered by Sarah Lamar 12/01/23 09:23: message left for radio personality, Hannah. Original Note: CM met with pt yesterday, he was confused and lethargic, returned today to complete assessment, pt. still confused and lethargic, not able to understand assessment questions. He said his car is here, HCP is on file. Pt said he is going to his mother's house from here. CM will follow to complete assessment and assist with DC plan when pt.'s confusion clears.
[2023-12-01 11:49] LABS: Glucose, Whole Blood 191 mg/dL (60-115)
[2023-12-01 12:00] VITALS: BP 131/88; PULSE 99; RESP 20; TEMP 36.1; O2SAT 94
[2023-12-01] MEDS: Insulin Lispro 100 UNIT/ML 3 ML VIAL SUBCUT (12:25)
--- NOTE | 2023-12-01 13:01 | HO.PM.IMPN ---
Subjective Subjective Date of Service: 12/01/23 Interval History: Remains confused with CIWA 10-16. Managed well with phenobarb and p.r.n. Ativan. Review of Systems Unable to obtain Physical Exam Vital Signs: Vital Signs: Last Vital Signs Temp 97.0 F 12/01/23 12:00 Pulse 99 12/01/23 12:00 Resp 20 12/01/23 12:00 BP 131/88 12/01/23 12:00 Pulse Ox 94 12/01/23 12:00 O2 Del Method Room Air 12/01/23 12:00 O2 Flow Rate 2 11/30/23 12:00 BMI result Body Mass Index 33.3 Const: Other: Somnolent but arousable. No seizure activity Resp: Other: Clear to auscultation bilaterally no rales rhonchi wheezes Cardio: Other: No S4; positive S1-S2; no S3 murmurs rubs or gallops GI: Other: Soft nontender nondistended normoactive bowel sounds Neuro: Other: Moving all extremities with equal power Extrem: Other: No edema bilaterally Objective Data Active Medications Acamprosate (Acamprosate Calcium 333 Mg Tablet.) 666 mg PO TID [facility] Last Admin: 12/01/23 07:46 Dose: 666 mg Documented By: STEFF Acetaminophen (Acetaminophen 325 Mg Tablet) 650 mg PO Q6H PRN PRN Reason: Pain, Mild (Pain Scale 1-3), fever or headache Last Admin: 12/01/23 07:46 Dose: 650 mg Documented By: STEFF Atorvastatin Calcium (Atorvastatin Calcium 10 Mg Tablet) 10 mg PO BEDTIME [facility] Last Admin: 11/30/23 19:47 Dose: 10 mg Documented By: LAFLAMC Benzonatate (Benzonatate 100 Mg Capsule) 100 mg PO TID PRN PRN Reason: Cough Buprenorphine/Naloxone (Buprenorphine/Naloxone 8/2 Mg Film) 2 film BUCCAL DAILY [facility] Last Admin: 12/01/23 07:45 Dose: 2 film Documented By: STEFF Buspirone HCl (Buspirone Hcl 5 Mg Tablet) 5 mg PO BID [facility] Last Admin: 12/01/23 07:46 Dose: 5 mg Documented By: STEFF Calcium Carbonate (Calcium Carbonate 750 Mg Tab.Chew) 750 mg PO Q4H PRN PRN Reason: Heartburn Cyclobenzaprine HCl (Cyclobenzaprine Hcl 10 Mg Tablet) 10 mg PO TID PRN PRN Reason: Muscle Spasm Duloxetine HCl (Duloxetine Hcl 60 Mg Capsule.Dr) 120 mg PO DAILY [facility] Last Admin: 12/01/23 07:47 Dose: 120 mg Documented By: STEFF Enoxaparin Sodium (Enoxaparin Sodium 40 Mg/0.4 Ml Syringe) 40 mg SUBCUT Q24H [facility] Last Admin: 11/30/23 17:07 Dose: 40 mg Documented By: KEVIN Famotidine (Famotidine 20 Mg Tablet) 20 mg PO BID [facility] Last Admin: 12/01/23 07:46 Dose: 20 mg Documented By: STEFF Finasteride (Finasteride 5 Mg Tablet) 5 mg PO DAILY [facility] Last Admin: 12/01/23 07:46 Dose: 5 mg Documented By: STEFF Folic Acid (Folic Acid 1 Mg Tablet) 1 mg PO DAILY [facility] Stop: 12/03/23 08:59 Last Admin: 12/01/23 07:47 Dose: 1 mg Documented By: STEFF Gabapentin (Gabapentin 600 Mg Tablet) 1,200 mg PO TID PRN PRN Reason: Anxiety/Neuropathic Pain Last Admin: 12/01/23 07:46 Dose: 1,200 mg Documented By: STEFF Glucose (Glucose Gel 15 Gm Gel..Gram.) 15 gm PO Q15M PRN; Protocol PRN Reason: per Hypoglycemia Standing Ord. Hydroxyzine HCl (Hydroxyzine Hcl 25 Mg Tablet) 25 mg PO BEDTIME PRN PRN Reason: Sleep Dextrose (D10) 250 mls @ 750 mls/hr IV Q15M PRN; Protocol PRN Reason: per Hypoglycemia Standing Ord. Piperacillin Sod/Tazobactam (Sod 4.5 gm/ Sodium Chloride) 100 mls @ 200 mls/hr IV Q6H [facility] Last Infusion: 12/01/23 08:15 Dose: Infused Documented By: STEFF Insulin Human Lispro (Insulin Lispro 100 Unit/Ml 3 Ml Vial) 0 unit SUBCUT QIDACHS [facility]; Protocol Last Admin: 12/01/23 12:25 Dose: 2 unit Documented By: STEFF Magnesium Hydroxide (Milk Of Magnesia 30 Ml Oral.Susp) 30 ml PO DAILY PRN PRN Reason: Constipation Magnesium Oxide (Magnesium Oxide 400 Mg Tablet) 400 mg PO DAILY [facility] Last Admin: 12/01/23 07:47 Dose: 400 mg Documented By: STEFF Metoprolol Succinate (Metoprolol Succinate Er 25 Mg Tab.Er.24h) 25 mg PO BEDTIME [facility]; Protocol Last Admin: 11/30/23 19:47 Dose: 25 mg Documented By: GABI Multivitamins/Vitamin C (Multivitamin Tablet) 1 tab PO DAILY [facility] Stop: 12/03/23 08:59 Last Admin: 12/01/23 07:47 Dose: 1 tab Documented By: STEFF Nicotine Polacrilex (Nicotine Polacrilex 2 Mg Gum) 2 mg BUCCAL Q2H PRN PRN Reason: Nicotine Cravings Last Admin: 11/30/23 16:43 Dose: 2 mg Documented By: AIRAM Ondansetron HCl (Ondansetron Hcl 4 Mg/2 Ml Vial) 4 mg IVPUSH Q8H PRN PRN Reason: Nausea and Vomiting Last Admin: 11/30/23 02:28 Dose: 4 mg Documented By: GABI Pharmacy Consult (Consult Rx Etoh Phenob Im/Po) 1 each MISCELLANE ONCE PRN; Protocol PRN Reason: Consult order Phenobarbital (Phenobarbital 15 Mg Tablet) 45 mg PO BID [facility]; Protocol Stop: 12/01/23 21:01 Last Admin: 12/01/23 07:48 Dose: 45 mg Documented By: STEFF Phenobarbital (Phenobarbital 30 Mg Tablet) 30 mg PO BID [facility]; Protocol Stop: 12/03/23 21:01 Phenobarbital (Phenobarbital 30 Mg Tablet) 30 mg PO DAILY [facility]; Protocol Stop: 12/05/23 09:01 Polyethylene Glycol (Polyethylene Glycol 3350 17 Gm Powd.Pack) 17 gm PO DAILY [facility] Last Admin: 12/01/23 07:45 Dose: 17 gm Documented By: STEFF Senna (Sennosides 8.6 Mg Tablet) 17.2 mg PO DAILY [facility] Last Admin: 12/01/23 07:47 Dose: 17.2 mg Documented By: STEFF Sodium Chloride (0.9 % Sodium Chloride Flush 3 Ml Syringe) [address] [facility] Last Admin: 12/01/23 07:48 Dose: 3 ml Documented By: STEFF Tamsulosin HCl (Tamsulosin Hcl 0.4 Mg Capsule) 0.8 mg PO DAILY@1730 [facility] Last Admin: 11/30/23 15:42 Dose: 0.8 mg Documented By: AIRAM Thiamine HCl (Thiamine Hcl 100 Mg Tablet) 100 mg PO DAILY [facility] Stop: 12/03/23 08:59 Last Admin: 12/01/23 07:47 Dose: 100 mg Documented By: STEFF Trazodone HCl (Trazodone Hcl 100 Mg Tablet) 200 mg PO BEDTIME PRN PRN Reason: Insomnia Last Admin: 11/30/23 22:41 Dose: 200 mg Documented By: GABI Vitamin D (Cholecalciferol (Vitamin D3) 25 Mcg Tablet) 50 mcg PO DAILY [facility] Last Admin: 12/01/23 07:47 Dose: 50 mcg Documented By: STEFF Labs 11/29/23 13:40 12/01/23 08:36 Labs: Laboratory Results - last 24 hr 11/30/23 11/30/23 12/01/23 16:18 20:52 04:00 Anion Gap Estim Creat Clear Calc Estimated GFR POC Glucose 127 H 156 H Random Glucose Calcium Urine Color Yellow Urine Appearance Clear Urine pH 6.5 Ur Specific [place] 1.015 Urine Protein Trace Urine Glucose (UA) Negative Urine Ketones Negative Urine Blood Negative Urine Nitrite Negative Ur Leukocyte Esterase Negative Urine Opiates Screen Not Detected Ur Buprenorphine Scrn Positive H Ur Oxycodone Screen Not Detected Urine Methadone Screen Not Detected Urine Fentanyl Screen Not Detected Ur Barbiturates Screen POSITIVE H Ur Phencyclidine Scrn Not Detected Ur Amphetamines Screen Not Detected U Benzodiazepines Scrn Not Detected Urine Cocaine Screen Not Detected U Marijuana (THC) Screen POSITIVE H 12/01/23 12/01/23 12/01/23 07:31 08:36 11:12 Anion Gap 12 Estim Creat Clear Calc 105.2 Estimated GFR > 60 POC Glucose 138 H 191 H Random Glucose 175 H Calcium 8.5 Urine Color Urine Appearance Urine pH Ur Specific [place] Urine Protein Urine Glucose (UA) Urine Ketones Urine Blood Urine Nitrite Ur Leukocyte Esterase Urine Opiates Screen Ur Buprenorphine Scrn Ur Oxycodone Screen Urine Methadone Screen Urine Fentanyl Screen Ur Barbiturates Screen Ur Phencyclidine Scrn Ur Amphetamines Screen U Benzodiazepines Scrn Urine Cocaine Screen U Marijuana (THC) Screen Microbiology Microbiology Results: Microbiology 11/29/23 14:22 Blood Culture - Preliminary Blood - Venous No growth after 24 hours. 11/29/23 14:22 Blood Culture - Preliminary Blood - Venous No growth after 24 hours. Assessment and Plan (1) Pulmonary aspiration: Status: Acute (2) Aspiration pneumonia: Status: Acute Plan Pt is a 63-year-old male with a PMH significant for?HTN, HLD, [id number] type 2 diabetes, BPH, alcohol use disorder with hx of withdrawal seizures, hx of opioid use disorder on Suboxone, hx of aspiration pneumonia requiring emergent intubation in the past, anxiety, and depression who presents to the ED requesting detox. 1.Acute hypoxic respiratory failure in the setting of likely aspiration pneumonia -Zosyn (3) -titrate O2 to maintain sats greater than equal to 92% 2.Acute alcohol withdrawal -continue score 8 -10 on CIWA scale.. No seizures -continue phenobarb protocol; aspiration precautions -p.r.n. Ativan with adjuvant Haldol as needed 3.HTN -acceptable control on current therapies -adjust as indicated 4. Diabetes type 2 -acceptable control on current therapies -lispro correctional scale -adjust as indicated 5.Polysubstance use disorder -Suboxone Full Code Lovenox Requires ongoing hospitalization for phenobarb to treat acute alcohol withdrawal; IV antibiotics to treat aspiration pneumonia Quality Stroke Does the patient have a stroke diagnosis?: No VTE Prior VTE?: No VTE Risk Level:: Medical - moderate - high VTE Device Contraindication: Treatment Not Indicated VTE Drug Contraindication: N/A - Med Ordered
[2023-12-01] MEDS: Nicotine Polacrilex 2 MG GUM BUCCAL (14:51)
[2023-12-01 15:27] VITALS: BP 137/95; PULSE 87; RESP 18; TEMP 36.4; O2SAT 90
[2023-12-01] MEDS: LORazepam 2 MG/ML VIAL IVPUSH (15:35)
[2023-12-01 17:01] LABS: Glucose, Whole Blood 108 mg/dL (60-115)
[2023-12-01] MEDS: Enoxaparin Sodium 40 MG/0.4 ML SYRINGE SUBCUT (17:19)
[2023-12-01 19:47] VITALS: BP 163/110; PULSE 80; RESP 20; TEMP 36.1; O2SAT 94
[2023-12-01] MEDS: Benzonatate 100 MG CAPSULE PO (19:48)
[2023-12-01] MEDS: Cyclobenzaprine HCl 10 MG TABLET PO (19:48)
[2023-12-01] MEDS: hydrOXYzine HCL 25 MG TABLET PO (19:48)
[2023-12-01] MEDS: Metoprolol Succinate ER 25 MG TAB.ER.24H PO (19:49)
[2023-12-01] MEDS: Atorvastatin Calcium 10 MG TABLET PO (19:49)
[2023-12-01 20:51] LABS: Glucose, Whole Blood 109 mg/dL (60-115)
[2023-12-02] VITALS (10 sets, daily range): BP systolic 143–182; BP diastolic 74–105; PULSE 77–91; RESP 16–20; TEMP 36–36.6; O2SAT 92–97
[2023-12-02] MEDS: Piperacillin Sodium/Tazobactam 4.5 GM in 0.9 % Sodium Chloride 100 ML IV ×4 (01:15→20:26)
[2023-12-02 04:12] LABS: Glucose, Whole Blood 129 mg/dL (60-115)
[2023-12-02 06:58] LABS: Anion Gap 15 (12-20); Blood Urea Nitrogen 11 mg/dL (9-16); Calcium 8.8 mg/dL (8.4-10.2); Carbon Dioxide 29 mmol/L (22-29); Chloride 102 mmol/L (96-108); Creatinine Clr Calc Pharmacy 110.4; Estimated Glomerular Filt Rate > 60; Glucose Random 134 mg/dL (60-115); Potassium 4.6 mmol/L (3.3-5.1); Sodium 141 mmol/L (135-145)
[2023-12-02 07:43] LABS: Glucose, Whole Blood 185 mg/dL (60-115)
[2023-12-02] MEDS: PHENobarbitaL 30 MG TABLET PO ×2 (07:51→20:27)
[2023-12-02] MEDS: Acamprosate Calcium 333 MG TABLET.DR 666 MG PO ×2 (07:51→20:27)
[2023-12-02] MEDS: Insulin Lispro 100 UNIT/ML 3 ML VIAL SUBCUT (07:51)
[2023-12-02] MEDS: Finasteride 5 MG TABLET PO (07:52)
[2023-12-02] MEDS: DULoxetine HCl 60 MG CAPSULE.DR 120 MG PO (07:52)
[2023-12-02] MEDS: Gabapentin 600 MG TABLET 1200 MG PO ×2 (07:52→23:47)
[2023-12-02] MEDS: Acetaminophen 325 MG TABLET 650 MG PO ×2 (07:52→23:46)
[2023-12-02] MEDS: Multivitamin TABLET 1 TAB PO (07:52)
[2023-12-02] MEDS: Magnesium Oxide 400 MG TABLET PO (07:52)
[2023-12-02] MEDS: Buprenorphine/Naloxone 8/2 mg FILM 2 FILM BUCCAL (07:52)
[2023-12-02] MEDS: polyethylene glycoL 3350 17 GM POWD.PACK PO (07:53)
[2023-12-02] MEDS: busPIRone HCl 5 MG TABLET PO ×2 (07:53→20:27)
[2023-12-02] MEDS: Thiamine HCL 100 MG TABLET PO (07:53)
[2023-12-02] MEDS: Folic Acid 1 MG TABLET PO (07:53)
[2023-12-02] MEDS: Cholecalciferol (Vitamin D3) 25 MCG TABLET 50 MCG PO (07:53)
[2023-12-02] MEDS: Sennosides 8.6 MG TABLET 17.2 MG PO (07:53)
[2023-12-02] MEDS: Famotidine 20 MG TABLET PO ×2 (07:53→20:27)
[2023-12-02] MEDS: 0.9 % Sodium Chloride Flush 3 ML SYRINGE IVFLUSH ×3 (07:54→20:28)
--- NOTE | 2023-12-02 09:50 | MHC.RECOVRN ---
AUDIT-C Brief Intervention Attempted Audit C at this time, patient is confused, intermittently falling asleep, needing loud verbal command to rouse. RN aware. Tash Yi APRN notified as well..
--- NOTE | 2023-12-02 11:31 | MHC.CM.PN ---
EMR REVIIEWED, PT W/HYPOXIA/ETOH WITHDRAWAL, PT CONFUSED AND IN WITHDRAWAL, NO PLAN FOR DC AT THIS TIME, CM WILL CONT TO FOLLOW DC NEEDS.
[2023-12-02 11:33] LABS: Glucose, Whole Blood 141 mg/dL (60-115)
[2023-12-02] MEDS: LORazepam 2 MG/ML VIAL IVPUSH ×2 (13:10→21:48)
--- NOTE | 2023-12-02 13:50 | HO.PM.IMPN ---
Subjective Subjective Date of Service: 12/02/23 Interval History: Continues to require increased doses of Ativan; CIWA persistently 12-15 Review of Systems Unable to obtain Physical Exam Vital Signs: Vital Signs: Last Vital Signs Temp 97.6 F 12/02/23 11:23 Pulse 85 12/02/23 11:23 Resp 18 12/02/23 11:23 BP 163/95 H 12/02/23 11:23 Pulse Ox 97 12/02/23 11:23 O2 Del Method Room Air 12/02/23 11:23 O2 Flow Rate 2 12/02/23 03:26 BMI result Body Mass Index 33.3 Const: Other: Somnolent but arousable. No seizure activity Resp: Other: Clear to auscultation bilaterally no rales rhonchi wheezes Cardio: Other: No S4; positive S1-S2; no S3 murmurs rubs or gallops GI: Other: Soft nontender nondistended normoactive bowel sounds Neuro: Other: Moving all extremities with equal power Extrem: Other: No edema bilaterally Objective Data Active Medications Acamprosate (Acamprosate Calcium 333 Mg Tablet.) 666 mg PO TID [facility] Last Admin: 12/02/23 07:51 Dose: 666 mg Documented By: STEFF Acetaminophen (Acetaminophen 325 Mg Tablet) 650 mg PO Q6H PRN PRN Reason: Pain, Mild (Pain Scale 1-3), fever or headache Last Admin: 12/02/23 07:52 Dose: 650 mg Documented By: STEFF Atorvastatin Calcium (Atorvastatin Calcium 10 Mg Tablet) 10 mg PO BEDTIME [facility] Last Admin: 12/01/23 19:49 Dose: 10 mg Documented By: HUA Benzonatate (Benzonatate 100 Mg Capsule) 100 mg PO TID PRN PRN Reason: Cough Last Admin: 12/01/23 19:48 Dose: 100 mg Documented By: HUA Buprenorphine/Naloxone (Buprenorphine/Naloxone 8/2 Mg Film) 2 film BUCCAL DAILY [facility] Last Admin: 12/02/23 07:52 Dose: 2 film Documented By: STEFF Buspirone HCl (Buspirone Hcl 5 Mg Tablet) 5 mg PO BID [facility] Last Admin: 12/02/23 07:53 Dose: 5 mg Documented By: STEFF Calcium Carbonate (Calcium Carbonate 750 Mg Tab.Chew) 750 mg PO Q4H PRN PRN Reason: Heartburn Cyclobenzaprine HCl (Cyclobenzaprine Hcl 10 Mg Tablet) 10 mg PO TID PRN PRN Reason: Muscle Spasm Last Admin: 12/01/23 19:48 Dose: 10 mg Documented By: HUA Duloxetine HCl (Duloxetine Hcl 60 Mg Capsule.Dr) 120 mg PO DAILY [facility] Last Admin: 12/02/23 07:52 Dose: 120 mg Documented By: STEFF Enoxaparin Sodium (Enoxaparin Sodium 40 Mg/0.4 Ml Syringe) 40 mg SUBCUT Q24H [facility] Last Admin: 12/01/23 17:19 Dose: 40 mg Documented By: STEFF Famotidine (Famotidine 20 Mg Tablet) 20 mg PO BID [facility] Last Admin: 12/02/23 07:53 Dose: 20 mg Documented By: STEFF Finasteride (Finasteride 5 Mg Tablet) 5 mg PO DAILY [facility] Last Admin: 12/02/23 07:52 Dose: 5 mg Documented By: STEFF Folic Acid (Folic Acid 1 Mg Tablet) 1 mg PO DAILY [facility] Stop: 12/03/23 08:59 Last Admin: 12/02/23 07:53 Dose: 1 mg Documented By: STEFF Gabapentin (Gabapentin 600 Mg Tablet) 1,200 mg PO TID PRN PRN Reason: Anxiety/Neuropathic Pain Last Admin: 12/02/23 07:52 Dose: 1,200 mg Documented By: STEFF Glucose (Glucose Gel 15 Gm Gel..Gram.) 15 gm PO Q15M PRN; Protocol PRN Reason: per Hypoglycemia Standing Ord. Hydroxyzine HCl (Hydroxyzine Hcl 25 Mg Tablet) 25 mg PO BEDTIME PRN PRN Reason: Sleep Last Admin: 12/01/23 19:48 Dose: 25 mg Documented By: HUA Dextrose (D10) 250 mls @ 750 mls/hr IV Q15M PRN; Protocol PRN Reason: per Hypoglycemia Standing Ord. Piperacillin Sod/Tazobactam (Sod 4.5 gm/ Sodium Chloride) 100 mls @ 200 mls/hr IV Q6H [facility] Last Admin: 12/02/23 13:10 Dose: 200 mls/hr Documented By: STEFF Insulin Human Lispro (Insulin Lispro 100 Unit/Ml 3 Ml Vial) 0 unit SUBCUT QIDACHS [facility]; Protocol Last Admin: 12/02/23 11:38 Dose: Not Given Documented By: STEFF Non-Admin Reason: poc= 141 Lorazepam (Lorazepam 2 Mg/Ml Vial) 2 mg IVPUSH Q2H PRN PRN Reason: withdrawl symptoms/CIWA Last Admin: 12/02/23 13:10 Dose: 2 mg Documented By: STEFF Magnesium Hydroxide (Milk Of Magnesia 30 Ml Oral.Susp) 30 ml PO DAILY PRN PRN Reason: Constipation Magnesium Oxide (Magnesium Oxide 400 Mg Tablet) 400 mg PO DAILY [facility] Last Admin: 12/02/23 07:52 Dose: 400 mg Documented By: STEFF Metoprolol Succinate (Metoprolol Succinate Er 25 Mg Tab.Er.24h) 25 mg PO BEDTIME [facility]; Protocol Last Admin: 12/01/23 19:49 Dose: 25 mg Documented By: HUA Multivitamins/Vitamin C (Multivitamin Tablet) 1 tab PO DAILY [facility] Stop: 12/03/23 08:59 Last Admin: 12/02/23 07:52 Dose: 1 tab Documented By: STEFF Nicotine Polacrilex (Nicotine Polacrilex 2 Mg Gum) 2 mg BUCCAL Q2H PRN PRN Reason: Nicotine Cravings Last Admin: 12/01/23 14:51 Dose: 2 mg Documented By: STEFF Ondansetron HCl (Ondansetron Hcl 4 Mg/2 Ml Vial) 4 mg IVPUSH Q8H PRN PRN Reason: Nausea and Vomiting Last Admin: 11/30/23 02:28 Dose: 4 mg Documented By: GABI Pharmacy Consult (Consult Rx Etoh Phenob Im/Po) 1 each MISCELLANE ONCE PRN; Protocol PRN Reason: Consult order Phenobarbital (Phenobarbital 30 Mg Tablet) 30 mg PO BID [facility]; Protocol Stop: 12/03/23 21:01 Last Admin: 12/02/23 07:51 Dose: 30 mg Documented By: STEFF Phenobarbital (Phenobarbital 30 Mg Tablet) 30 mg PO DAILY [facility]; Protocol Stop: 12/05/23 09:01 Polyethylene Glycol (Polyethylene Glycol 3350 17 Gm Powd.Pack) 17 gm PO DAILY [facility] Last Admin: 12/02/23 07:53 Dose: 17 gm Documented By: STEFF Senna (Sennosides 8.6 Mg Tablet) 17.2 mg PO DAILY [facility] Last Admin: 12/02/23 07:53 Dose: 17.2 mg Documented By: STEFF Sodium Chloride (0.9 % Sodium Chloride Flush 3 Ml Syringe) 3 ml IVFLUSH QSHIFT [facility] Last Admin: 12/02/23 07:54 Dose: 3 ml Documented By: STEFF Tamsulosin HCl (Tamsulosin Hcl 0.4 Mg Capsule) 0.8 mg PO DAILY@1730 [facility] Last Admin: 12/01/23 17:20 Dose: Not Given Documented By: STEFF Non-Admin Reason: Somnolence, unable to safely take Thiamine HCl (Thiamine Hcl 100 Mg Tablet) 100 mg PO DAILY [facility] Stop: 12/03/23 08:59 Last Admin: 12/02/23 07:53 Dose: 100 mg Documented By: STEFF Trazodone HCl (Trazodone Hcl 100 Mg Tablet) 200 mg PO BEDTIME PRN PRN Reason: Insomnia Last Admin: 11/30/23 22:41 Dose: 200 mg Documented By: GABI Vitamin D (Cholecalciferol (Vitamin D3) 25 Mcg Tablet) 50 mcg PO DAILY [facility] Last Admin: 12/02/23 07:53 Dose: 50 mcg Documented By: STEFF Labs 11/29/23 13:40 12/02/23 06:21 Labs: Laboratory Results - last 24 hr 12/01/23 12/01/23 12/02/23 16:57 20:38 03:37 Hold Purple Top Anion Gap Estim Creat Clear Calc Estimated GFR POC Glucose 108 109 129 H Random Glucose Calcium 12/02/23 12/02/23 12/02/23 06:21 07:38 11:28 Hold Purple Top SEE NOTE Anion Gap 15 Estim Creat Clear Calc 110.4 Estimated GFR > 60 POC Glucose 185 H 141 H Random Glucose 134 H Calcium 8.8 Microbiology Microbiology Results: Microbiology 11/29/23 14:22 Blood Culture - Preliminary Blood - Venous No growth after 48 hours. 11/29/23 14:22 Blood Culture - Preliminary Blood - Venous No growth after 48 hours. Assessment and Plan (1) Aspiration pneumonia: Status: Acute (2) Alcohol withdrawal syndrome: Status: Acute Plan Pt is a 63-year-old male with a PMH significant for?HTN, HLD, [id number] type 2 diabetes, BPH, alcohol use disorder with hx of withdrawal seizures, hx of opioid use disorder on Suboxone, hx of aspiration pneumonia requiring emergent intubation in the past, anxiety, and depression who presents to the ED requesting detox. 1.Acute hypoxic respiratory failure in the setting of likely aspiration pneumonia -Zosyn (4) -titrate O2 to maintain sats greater than equal to 92% 2.Acute alcohol withdrawal -continue score 8 -10 on CIWA scale.. No seizures -continue phenobarb protocol; aspiration precautions -continues to utilize p.r.n. Ativan 3.HTN -acceptable control on current therapies -adjust as indicated 4. Diabetes type 2 -acceptable control on current therapies -lispro correctional scale -adjust as indicated 5.Polysubstance use disorder -Suboxone Full Code Lovenox Requires ongoing hospitalization for phenobarb to treat acute alcohol withdrawal; IV antibiotics to treat aspiration pneumonia Quality Stroke Does the patient have a stroke diagnosis?: No VTE Prior VTE?: No VTE Risk Level:: Medical - moderate - high VTE Device Contraindication: Treatment Not Indicated VTE Drug Contraindication: N/A - Med Ordered
[2023-12-02 15:49] LABS: Glucose, Whole Blood 121 mg/dL (60-115)
[2023-12-02] MEDS: Enoxaparin Sodium 40 MG/0.4 ML SYRINGE SUBCUT (16:44)
[2023-12-02] MEDS: Metoprolol Tartrate 5 MG/5 ML VIAL IVPUSH (17:50)
[2023-12-02] MEDS: Atorvastatin Calcium 10 MG TABLET PO (20:27)
[2023-12-02] MEDS: Metoprolol Succinate ER 25 MG TAB.ER.24H PO (20:27)
[2023-12-02 20:54] LABS: Glucose, Whole Blood 115 mg/dL (60-115)
[2023-12-02] MEDS: Cyclobenzaprine HCl 10 MG TABLET PO (23:47)
[2023-12-02] MEDS: hydrOXYzine HCL 25 MG TABLET PO (23:47)
[2023-12-02] MEDS: traZODone HCL 100 MG TABLET 200 MG PO (23:47)
[2023-12-03] MEDS: Piperacillin Sodium/Tazobactam 4.5 GM in 0.9 % Sodium Chloride 100 ML IV ×4 (01:52→23:47)
[2023-12-03 03:58] VITALS: BP 142/100; PULSE 75; RESP 18; TEMP 36.3; O2SAT 95
[2023-12-03 07:29] VITALS: BP 180/104; PULSE 82; RESP 20; TEMP 37.2; O2SAT 94
[2023-12-03 07:53] LABS: Glucose, Whole Blood 103 mg/dL (60-115)
[2023-12-03] MEDS: Finasteride 5 MG TABLET PO (08:17)
[2023-12-03] MEDS: polyethylene glycoL 3350 17 GM POWD.PACK PO (08:17)
[2023-12-03] MEDS: DULoxetine HCl 60 MG CAPSULE.DR 120 MG PO (08:17)
[2023-12-03] MEDS: busPIRone HCl 5 MG TABLET PO ×2 (08:17→21:59)
[2023-12-03] MEDS: Cholecalciferol (Vitamin D3) 25 MCG TABLET 50 MCG PO (08:17)
[2023-12-03] MEDS: PHENobarbitaL 30 MG TABLET PO ×2 (08:17→21:58)
[2023-12-03] MEDS: Acamprosate Calcium 333 MG TABLET.DR 666 MG PO ×2 (08:17→21:58)
[2023-12-03] MEDS: Magnesium Oxide 400 MG TABLET PO (08:17)
[2023-12-03 08:18] VITALS: BP 180/104; PULSE 82
[2023-12-03] MEDS: Sennosides 8.6 MG TABLET 17.2 MG PO (08:18)
[2023-12-03] MEDS: Famotidine 20 MG TABLET PO ×2 (08:18→22:00)
[2023-12-03] MEDS: Buprenorphine/Naloxone 8/2 mg FILM 2 FILM BUCCAL (08:18)
[2023-12-03] MEDS: Metoprolol Tartrate 50 MG TABLET PO ×2 (08:18→22:00)
[2023-12-03] MEDS: 0.9 % Sodium Chloride Flush 3 ML SYRINGE IVFLUSH (08:19)
[2023-12-03] MEDS: Nicotine Polacrilex 2 MG GUM BUCCAL (09:37)
[2023-12-03 11:02] VITALS: BP 169/96; PULSE 70; RESP 18; TEMP 36.6; O2SAT 95
[2023-12-03 11:20] LABS: Glucose, Whole Blood 177 mg/dL (60-115)
[2023-12-03] MEDS: Insulin Lispro 100 UNIT/ML 3 ML VIAL SUBCUT (11:39)
[2023-12-03] MEDS: LORazepam 2 MG/ML VIAL IVPUSH ×2 (12:28→22:14)
--- NOTE | 2023-12-03 14:44 | P.PNIM_ITS ---
Subjective Subjective Date of Service: 12/03/23 Interval History: Still continues to score high on CIWA scale. Utilizing Ativan q.2 hours as well as phenobarb Review of Systems Unable to obtain Physical Exam 2 Vital Signs: Vital Signs: Last Vital Signs Temp 97.9 F 12/03/23 11:02 Pulse 70 12/03/23 11:02 Resp 18 12/03/23 11:02 BP 169/96 H 12/03/23 11:02 Pulse Ox 95 12/03/23 11:02 O2 Del Method Nasal Cannula 12/03/23 11:02 O2 Flow Rate 2 12/03/23 11:02 BMI result Body Mass Index 33.3 Const: Other: Somnolent but arousable. No seizure activity Resp: Other: Clear to auscultation bilaterally no rales rhonchi wheezes Cardio: Other: No S4; positive S1-S2; no S3 murmurs rubs or gallops GI: Other: Soft nontender nondistended normoactive bowel sounds Neuro: Other: Moving all extremities with equal power Extrem: Other: No edema bilaterally Objective Data Active Medications Acamprosate (Acamprosate Calcium 333 Mg Tablet.) 666 mg PO TID [facility] Last Admin: 12/03/23 08:17 Dose: 666 mg Documented By: ISABEL Acetaminophen (Acetaminophen 325 Mg Tablet) 650 mg PO Q6H PRN PRN Reason: Pain, Mild (Pain Scale 1-3), fever or headache Last Admin: 12/02/23 23:46 Dose: 650 mg Documented By: HUA Atorvastatin Calcium (Atorvastatin Calcium 10 Mg Tablet) 10 mg PO BEDTIME [facility] Last Admin: 12/02/23 20:27 Dose: 10 mg Documented By: KIP Benzonatate (Benzonatate 100 Mg Capsule) 100 mg PO TID PRN PRN Reason: Cough Last Admin: 12/01/23 19:48 Dose: 100 mg Documented By: HUA Buprenorphine/Naloxone (Buprenorphine/Naloxone 8/2 Mg Film) 2 film BUCCAL DAILY [facility] Last Admin: 12/03/23 08:18 Dose: 2 film Documented By: ISABEL Buspirone HCl (Buspirone Hcl 5 Mg Tablet) 5 mg PO BID [facility] Last Admin: 12/03/23 08:17 Dose: 5 mg Documented By: ISABEL Calcium Carbonate (Calcium Carbonate 750 Mg Tab.Chew) 750 mg PO Q4H PRN PRN Reason: Heartburn Cyclobenzaprine HCl (Cyclobenzaprine Hcl 10 Mg Tablet) 10 mg PO TID PRN PRN Reason: Muscle Spasm Last Admin: 12/02/23 23:47 Dose: 10 mg Documented By: HUA Duloxetine HCl (Duloxetine Hcl 60 Mg Capsule.Dr) 120 mg PO DAILY [facility] Last Admin: 12/03/23 08:17 Dose: 120 mg Documented By: ISABEL Enoxaparin Sodium (Enoxaparin Sodium 40 Mg/0.4 Ml Syringe) 40 mg SUBCUT Q24H [facility] Last Admin: 12/02/23 16:44 Dose: 40 mg Documented By: STEFF Famotidine (Famotidine 20 Mg Tablet) 20 mg PO BID [facility] Last Admin: 12/03/23 08:18 Dose: 20 mg Documented By: ISABEL Finasteride (Finasteride 5 Mg Tablet) 5 mg PO DAILY [facility] Last Admin: 12/03/23 08:17 Dose: 5 mg Documented By: ISABEL Gabapentin (Gabapentin 600 Mg Tablet) 1,200 mg PO TID PRN PRN Reason: Anxiety/Neuropathic Pain Last Admin: 12/02/23 23:47 Dose: 1,200 mg Documented By: HUA Glucose (Glucose Gel 15 Gm Gel..Gram.) 15 gm PO Q15M PRN; Protocol PRN Reason: per Hypoglycemia Standing Ord. Hydroxyzine HCl (Hydroxyzine Hcl 25 Mg Tablet) 25 mg PO BEDTIME PRN PRN Reason: Sleep Last Admin: 12/02/23 23:47 Dose: 25 mg Documented By: HUA Dextrose (D10) 250 mls @ 750 mls/hr IV Q15M PRN; Protocol PRN Reason: per Hypoglycemia Standing Ord. Piperacillin Sod/Tazobactam (Sod 4.5 gm/ Sodium Chloride) 100 mls @ 200 mls/hr IV Q6H [facility] Last Admin: 12/03/23 13:25 Dose: 200 mls/hr Documented By: ISABEL Insulin Human Lispro (Insulin Lispro 100 Unit/Ml 3 Ml Vial) 0 unit SUBCUT QIDACHS [facility]; Protocol Last Admin: 12/03/23 11:39 Dose: 2 unit Documented By: ISABEL Lorazepam (Lorazepam 2 Mg/Ml Vial) 2 mg IVPUSH Q2H PRN PRN Reason: withdrawl symptoms/CIWA Last Admin: 12/03/23 12:28 Dose: 2 mg Documented By: ISABEL Magnesium Hydroxide (Milk Of Magnesia 30 Ml Oral.Susp) 30 ml PO DAILY PRN PRN Reason: Constipation Magnesium Oxide (Magnesium Oxide 400 Mg Tablet) 400 mg PO DAILY [facility] Last Admin: 12/03/23 08:17 Dose: 400 mg Documented By: ISABEL Metoprolol Tartrate (Metoprolol Tartrate 50 Mg Tablet) 50 mg PO BID [facility]; Protocol Last Admin: 12/03/23 08:18 Dose: 50 mg Documented By: ISABEL Nicotine Polacrilex (Nicotine Polacrilex 2 Mg Gum) 2 mg BUCCAL Q2H PRN PRN Reason: Nicotine Cravings Last Admin: 12/03/23 09:37 Dose: 2 mg Documented By: ZACH Ondansetron HCl (Ondansetron Hcl 4 Mg/2 Ml Vial) 4 mg IVPUSH Q8H PRN PRN Reason: Nausea and Vomiting Last Admin: 11/30/23 02:28 Dose: 4 mg Documented By: GABI Pharmacy Consult (Consult Rx Etoh Phenob Im/Po) 1 each MISCELLANE ONCE PRN; Protocol PRN Reason: Consult order Phenobarbital (Phenobarbital 30 Mg Tablet) 30 mg PO BID [facility]; Protocol Stop: 12/03/23 21:01 Last Admin: 12/03/23 08:17 Dose: 30 mg Documented By: ISABEL Phenobarbital (Phenobarbital 30 Mg Tablet) 30 mg PO DAILY [facility]; Protocol Stop: 12/05/23 09:01 Polyethylene Glycol (Polyethylene Glycol 3350 17 Gm Powd.Pack) 17 gm PO DAILY [facility] Last Admin: 12/03/23 08:17 Dose: 17 gm Documented By: ISABEL Senna (Sennosides 8.6 Mg Tablet) 17.2 mg PO DAILY [facility] Last Admin: 12/03/23 08:18 Dose: 17.2 mg Documented By: ISABEL Sodium Chloride (0.9 % Sodium Chloride Flush 3 Ml Syringe) [facility] Last Admin: 12/03/23 08:19 Dose: 3 ml Documented By: ISABEL Tamsulosin HCl (Tamsulosin Hcl 0.4 Mg Capsule) 0.8 mg PO DAILY@1730 [facility] Last Admin: 12/02/23 16:45 Dose: Not Given Documented By: STEFF Non-Admin Reason: lethargy, not safe to attempt to swallow Trazodone HCl (Trazodone Hcl 100 Mg Tablet) 200 mg PO BEDTIME PRN PRN Reason: Insomnia Last Admin: 12/02/23 23:47 Dose: 200 mg Documented By: HUA Vitamin D (Cholecalciferol (Vitamin D3) 25 Mcg Tablet) 50 mcg PO DAILY [facility] Last Admin: 12/03/23 08:17 Dose: 50 mcg Documented By: ISABEL Labs 11/29/23 13:40 12/02/23 06:21 Labs: Laboratory Results - last 24 hr 12/02/23 12/02/23 12/03/23 15:46 20:37 07:50 POC Glucose 121 H 115 103 12/03/23 11:13 POC Glucose 177 H Assessment and Plan (1) Aspiration pneumonia: Status: Acute (2) Alcohol withdrawal syndrome: Status: Acute Plan Pt is a 63-year-old male with a PMH significant for?HTN, HLD, [id number] type 2 diabetes, BPH, alcohol use disorder with hx of withdrawal seizures, hx of opioid use disorder on Suboxone, hx of aspiration pneumonia requiring emergent intubation in the past, anxiety, and depression who presents to the ED requesting detox. 1.Acute hypoxic respiratory failure in the setting of likely aspiration pneumonia -Zosyn (5) -titrate O2 to maintain sats greater than equal to 92% 2.Acute alcohol withdrawal -continue score 15-20 on CIWA scale.. No seizures -continue phenobarb protocol; aspiration precautions -additional IM phenobarb as needed -continues to utilize p.r.n. Ativan 3.HTN -acceptable control on current therapies -adjust as indicated 4. Diabetes type 2 -acceptable control on current therapies -lispro correctional scale -adjust as indicated 5.Polysubstance use disorder -Suboxone Full Code Lovenox Requires ongoing hospitalization for phenobarb to treat acute alcohol withdrawal; IV antibiotics to treat aspiration pneumonia Quality Stroke Does the patient have a stroke diagnosis?: No VTE Prior VTE?: No VTE Risk Level:: Medical - moderate - high VTE Device Contraindication: Treatment Not Indicated VTE Drug Contraindication: N/A - Med Ordered
[2023-12-03] MEDS: PHENobarbitaL sodium 130 MG/ML VIAL 265 MG IM (15:29)
[2023-12-03] MEDS: Haloperidol Lactate 5 MG/ML VIAL IM (15:29)
[2023-12-03 16:07] LABS: Glucose, Whole Blood 133 mg/dL (60-115)
--- NOTE | 2023-12-03 16:30 | PC.NURSE ---
1530 pt became very agitated and uncooperative/combative. Pt ripped off gown and pulled iv, pt. walking around room and trying to go out in the fdc naked. Sitter in the room but unable to redirect. Pt continued to go in the shower after being told not to. Hallucinating black box/ feeling of swimming . Md notified. Pt brought back to bed, CIWA at the time was 28, Md ordered IM haldol and additional dose of phenobarb. Multiple attempts to get a new line - 22g in bilateral upper arms established. Both IM injections given but after giving injections pt became more combative trying to punch and threatened to hit staff. 30 mins after IM injection, pt now resting in bed calmly but increased frequency of apnea episodes. MD and nursing dewatering filtering supervisor aware, patient is currently on 2L nasal canula 02 sats 97%. Per MD continue to monitor and update if there are any other changes in breathing. All other needs met at this time, call rodriguez withing reach and sitter in the room.
--- NOTE | 2023-12-03 19:02 | PC.NURSE ---
Patient continues to be agitated and uncooperative with staff with multiple attempts out of bed Even after additional medications given. Patient trying to get get oob again after having small lose BM in the bed. Patient cleaned and able to reposition in bed but patient continues to be agitated and unable to sit still. Patient moved over to the chair but continues to nod off and on and almost falling face first out of the chair. Sitter within reach of the patient and patient again moved over to the bed d/t safety concerns. 1700 medications not given d/t patients increased level of agitation. Patient continues to only be a x 1 and CIWA scoring 32. Sitter still within room and all other needs met at this time. Call rodriguez within reach
[2023-12-03 20:00] VITALS: BP 174/109; PULSE 63; RESP 20; TEMP 36.3; O2SAT 94
[2023-12-03 20:03] LABS: Glucose, Whole Blood 122 mg/dL (60-115)
[2023-12-03 21:58] VITALS: BP 167/103; PULSE 70
[2023-12-03] MEDS: traZODone HCL 100 MG TABLET 200 MG PO (21:59)
[2023-12-03] MEDS: Atorvastatin Calcium 10 MG TABLET PO (21:59)
[2023-12-04] VITALS (15 sets, daily range): BP systolic 132–191; BP diastolic 65–142; PULSE 56–75; RESP 9–20; TEMP 36.3–36.7; O2SAT 93–98
[2023-12-04] MEDS: LORazepam 2 MG/ML VIAL IVPUSH ×4 (00:52→14:34)
[2023-12-04] MEDS: 0.9 % Sodium Chloride Flush 3 ML SYRINGE IVFLUSH ×2 (00:55→08:22)
[2023-12-04] MEDS: Piperacillin Sodium/Tazobactam 4.5 GM in 0.9 % Sodium Chloride 100 ML IV ×4 (06:22→19:22)
[2023-12-04 06:49] LABS: MANUAL DIFF FLAG NO
[2023-12-04 07:01] LABS: Basophils Absolute Auto 0.1 X10*3/uL (0.0-0.2); Basophils Percent Auto 0.6 % (0-2); Eosinophils Absolute Auto 0.4 X10*3/uL (0.0-0.4); Eosinophils Percent Auto 4.4 % (0-4); Hematocrit 37.7 % (42.0-52.0); Hemoglobin 12.8 g/dl (14.0-18.0); Imm Gran Abs Auto 0.03 X10*3/uL (0.00-0.03); Imm Gran Pct Auto 0.3 % (0.0-0.4); Lymphocytes Absolute Auto 2.3 X10*3/uL (1.2-4.9); Lymphocytes Percent Auto 23.7 % (20-40); Mean Corpuscular Hemoglobin 30.9 pg (27.0-33.0); Mean Corpuscular Volume 91.1 fL (80.0-98.0); Mean Platelet Volume 10.8 fL (9.4-12.4); Monocytes Absolute Auto 0.9 X10*3/uL (0.1-1.2); Neutrophils Absolute Auto 6.1 x10*3/uL (2.0-8.3); Platelet Count 153 X10*3/uL (160-400); Red Blood Count 4.14 X10*6/uL (4.60-5.80); Red Cell Distribution Width 14.1 % (11.0-16.0); White Blood Count 9.9 X10*3/uL (4.8-10.8)
[2023-12-04 07:12] LABS: Alanine Aminotransferase 48 U/L (0-40); Albumin Level 3.5 g/dL (3.5-5.0); Alkaline Phosphatase 53 U/L (39-117); Anion Gap 11 (12-20); Aspartate Amino Transferase 37 U/L (5-37); Bilirubin Total 0.4 mg/dL (0.0-1.0); Blood Urea Nitrogen 13 mg/dL (9-16); Calcium 9.1 mg/dL (8.4-10.2); Carbon Dioxide 32 mmol/L (22-29); Chloride 103 mmol/L (96-108); Creatinine Clr Calc Pharmacy 127.7; Estimated Glomerular Filt Rate > 60; Glucose Fasting 106 mg/dL (60-99); Sodium 142 mmol/L (135-145); Total Protein 6.1 g/dL (6.5-8.0)
[2023-12-04 08:05] LABS: Glucose, Whole Blood 104 mg/dL (60-115)
[2023-12-04] MEDS: Magnesium Oxide 400 MG TABLET PO (08:19)
[2023-12-04] MEDS: Cholecalciferol (Vitamin D3) 25 MCG TABLET 50 MCG PO (08:20)
[2023-12-04] MEDS: PHENobarbitaL 30 MG TABLET PO (08:20)
[2023-12-04] MEDS: Sennosides 8.6 MG TABLET 17.2 MG PO (08:20)
[2023-12-04] MEDS: Famotidine 20 MG TABLET PO (08:20)
[2023-12-04] MEDS: busPIRone HCl 5 MG TABLET PO (08:20)
[2023-12-04] MEDS: Acamprosate Calcium 333 MG TABLET.DR 666 MG PO (08:20)
[2023-12-04] MEDS: DULoxetine HCl 60 MG CAPSULE.DR 120 MG PO (08:20)
[2023-12-04] MEDS: Metoprolol Tartrate 50 MG TABLET PO (08:21)
[2023-12-04] MEDS: Finasteride 5 MG TABLET PO (08:21)
[2023-12-04] MEDS: Buprenorphine/Naloxone 8/2 mg FILM 2 FILM BUCCAL (08:21)
[2023-12-04 12:05] LABS: Glucose, Whole Blood 150 mg/dL (60-115)
--- NOTE | 2023-12-04 12:38 | HO.PM.IMPN ---
Subjective Subjective Date of Service: 12/04/23 Interval History: Patient continues to be actively withdrawing becoming less responsive Ativan/phenobarb/Haldol. Attempting to get out of bed and extremely confused Review of Systems Unable to obtain Physical Exam Vital Signs: Vital Signs: Last Vital Signs Temp 97.4 F 12/04/23 12:00 Pulse 75 12/04/23 12:00 Resp 20 12/04/23 12:00 BP 158/76 H 12/04/23 12:00 Pulse Ox 98 12/04/23 12:00 O2 Del Method Room Air 12/04/23 12:00 O2 Flow Rate 2 12/04/23 03:58 BMI result Body Mass Index 33.3 Const: Other: Somnolent but arousable. No seizure activity Resp: Other: Clear to auscultation bilaterally no rales rhonchi wheezes Cardio: Other: No S4; positive S1-S2; no S3 murmurs rubs or gallops GI: Other: Soft nontender nondistended normoactive bowel sounds Neuro: Other: Moving all extremities with equal power Extrem: Other: No edema bilaterally Objective Data Active Medications Acamprosate (Acamprosate Calcium 333 Mg Tablet.) 666 mg PO TID [facility] Last Admin: 12/04/23 08:20 Dose: 666 mg Documented By: JAZLYN Acetaminophen (Acetaminophen 325 Mg Tablet) 650 mg PO Q6H PRN PRN Reason: Pain, Mild (Pain Scale 1-3), fever or headache Last Admin: 12/02/23 23:46 Dose: 650 mg Documented By: HUA Atorvastatin Calcium (Atorvastatin Calcium 10 Mg Tablet) 10 mg PO BEDTIME [facility] Last Admin: 12/03/23 21:59 Dose: 10 mg Documented By: LEENA Benzonatate (Benzonatate 100 Mg Capsule) 100 mg PO TID PRN PRN Reason: Cough Last Admin: 12/01/23 19:48 Dose: 100 mg Documented By: HUA Buprenorphine/Naloxone (Buprenorphine/Naloxone 8/2 Mg Film) 2 film BUCCAL DAILY [facility] Last Admin: 12/04/23 08:21 Dose: 2 film Documented By: JAZLYN Buspirone HCl (Buspirone Hcl 5 Mg Tablet) 5 mg PO BID [facility] Last Admin: 09/18/24 08:20 Dose: 5 mg Documented By: JAZLYN Calcium Carbonate (Calcium Carbonate 750 Mg Tab.Chew) 750 mg PO Q4H PRN PRN Reason: Heartburn Cyclobenzaprine HCl (Cyclobenzaprine Hcl 10 Mg Tablet) 10 mg PO TID PRN PRN Reason: Muscle Spasm Last Admin: 12/02/23 23:47 Dose: 10 mg Documented By: HUA Duloxetine HCl (Duloxetine Hcl 60 Mg Capsule.Dr) 120 mg PO DAILY [facility] Last Admin: 12/04/23 08:20 Dose: 120 mg Documented By: JAZLYN Enoxaparin Sodium (Enoxaparin Sodium 40 Mg/0.4 Ml Syringe) 40 mg SUBCUT Q24H [facility] Last Admin: 12/03/23 18:26 Dose: Not Given Documented By: ZACH Non-Admin Reason: pt too agitated Famotidine (Famotidine 20 Mg Tablet) 20 mg PO BID [facility] Last Admin: 12/04/23 08:20 Dose: 20 mg Documented By: JAZLYN Finasteride (Finasteride 5 Mg Tablet) 5 mg PO DAILY [facility] Last Admin: 12/04/23 08:21 Dose: 5 mg Documented By: JAZLYN Gabapentin (Gabapentin 600 Mg Tablet) 1,200 mg PO TID PRN PRN Reason: Anxiety/Neuropathic Pain Last Admin: 12/02/23 23:47 Dose: 1,200 mg Documented By: HUA Glucose (Glucose Gel 15 Gm Gel..Gram.) 15 gm PO Q15M PRN; Protocol PRN Reason: per Hypoglycemia Standing Ord. Hydroxyzine HCl (Hydroxyzine Hcl 25 Mg Tablet) 25 mg PO BEDTIME PRN PRN Reason: Sleep Last Admin: 12/02/23 23:47 Dose: 25 mg Documented By: HUA Dextrose (D10) 250 mls @ 750 mls/hr IV Q15M PRN; Protocol PRN Reason: per Hypoglycemia Standing Ord. Piperacillin Sod/Tazobactam (Sod 4.5 gm/ Sodium Chloride) 100 mls @ 200 mls/hr IV Q6H [facility] Last Infusion: 12/04/23 09:09 Dose: Infused Documented By: JAZLYN Insulin Human Lispro (Insulin Lispro 100 Unit/Ml 3 Ml Vial) 0 unit SUBCUT QIDACHS [facility]; Protocol Last Admin: 12/04/23 12:07 Dose: Not Given Documented By: JAZLYN Non-Admin Reason: No Insulin Coverage Lorazepam (Lorazepam 2 Mg/Ml Vial) 2 mg IVPUSH Q2H PRN PRN Reason: withdrawl symptoms/CIWA Last Admin: 12/04/23 11:55 Dose: 2 mg Documented By: JAZLYN Magnesium Hydroxide (Milk Of Magnesia 30 Ml Oral.Susp) 30 ml PO DAILY PRN PRN Reason: Constipation Magnesium Oxide (Magnesium Oxide 400 Mg Tablet) 400 mg PO DAILY [facility] Last Admin: 12/04/23 08:19 Dose: 400 mg Documented By: JAZLYN Metoprolol Tartrate (Metoprolol Tartrate 50 Mg Tablet) 50 mg PO BID [facility]; Protocol Last Admin: 12/04/23 08:21 Dose: 50 mg Documented By: JAZLYN Nicotine Polacrilex (Nicotine Polacrilex 2 Mg Gum) 2 mg BUCCAL Q2H PRN PRN Reason: Nicotine Cravings Last Admin: 12/03/23 09:37 Dose: 2 mg Documented By: ZACH Ondansetron HCl (Ondansetron Hcl 4 Mg/2 Ml Vial) 4 mg IVPUSH Q8H PRN PRN Reason: Nausea and Vomiting Last Admin: 11/30/23 02:28 Dose: 4 mg Documented By: GABI Pharmacy Consult (Consult Rx Etoh Phenob Im/Po) 1 each MISCELLANE ONCE PRN; Protocol PRN Reason: Consult order Phenobarbital (Phenobarbital 30 Mg Tablet) 30 mg PO DAILY [facility]; Protocol Stop: 12/05/23 09:01 Last Admin: 12/04/23 08:20 Dose: 30 mg Documented By: JAZLYN Polyethylene Glycol (Polyethylene Glycol 3350 17 Gm Powd.Pack) 17 gm PO DAILY [facility] Last Admin: 12/04/23 10:32 Dose: Not Given Documented By: JAZLYN Non-Admin Reason: Pt had large loose BM over night Senna (Sennosides 8.6 Mg Tablet) 17.2 mg PO DAILY [facility] Last Admin: 12/04/23 08:20 Dose: 17.2 mg Documented By: JAZLYN Sodium Chloride (0.9 % Sodium Chloride Flush 3 Ml Syringe) 3 ml IVFLUSH QSHIFT [facility] Last Admin: 12/04/23 08:22 Dose: 3 ml Documented By: JAZLYN Tamsulosin HCl (Tamsulosin Hcl 0.4 Mg Capsule) 0.8 mg PO DAILY@1730 [facility] Last Admin: 12/03/23 18:26 Dose: Not Given Documented By: ZACH Non-Admin Reason: pt too agitated to take it Trazodone HCl (Trazodone Hcl 100 Mg Tablet) 200 mg PO BEDTIME PRN PRN Reason: Insomnia Last Admin: 12/03/23 21:59 Dose: 200 mg Documented By: LEENA Vitamin D (Cholecalciferol (Vitamin D3) 25 Mcg Tablet) 50 mcg PO DAILY [facility] Last Admin: 12/04/23 08:20 Dose: 50 mcg Documented By: JAZLYN Labs 12/04/23 06:37 12/04/23 06:37 Labs: Laboratory Results - last 24 hr 12/03/23 12/03/23 12/04/23 16:03 19:59 06:37 MCV 91.1 MCH 30.9 MCHC 34.0 RDW 14.1 Plt Count 153 L D MPV 10.8 Immature Gran % (Auto) 0.3 Neut % (Auto) 62.0 Lymph % (Auto) 23.7 [place] % (Auto) 9.0 Eos % (Auto) 4.4 H Baso % (Auto) 0.6 Lymph # (Auto) 2.3 [place] # (Auto) 0.9 Eos # (Auto) 0.4 Baso # (Auto) 0.1 Abs Immat Gran (auto) 0.03 Absolute Neuts (auto) 6.1 Absolute Nucleated RBC 0.000 Nucleated RBC % (auto) 0.0 Anion Gap 11 L Estim Creat Clear Calc 127.7 Estimated GFR > 60 POC Glucose 133 H 122 H Fasting Glucose 106 H Calcium 9.1 Total Bilirubin 0.4 AST 37 ALT 48 H Alkaline Phosphatase 53 Total Protein 6.1 L Albumin 3.5 12/04/23 12/04/23 07:48 11:48 MCV MCH MCHC RDW Plt Count MPV Immature Gran % (Auto) Neut % (Auto) Lymph % (Auto) [place] % (Auto) Eos % (Auto) Baso % (Auto) Lymph # (Auto) [place] # (Auto) Eos # (Auto) Baso # (Auto) Abs Immat Gran (auto) Absolute Neuts (auto) Absolute Nucleated RBC Nucleated RBC % (auto) Anion Gap Estim Creat Clear Calc Estimated GFR POC Glucose 104 150 H Fasting Glucose Calcium Total Bilirubin AST ALT Alkaline Phosphatase Total Protein Albumin Assessment and Plan (1) Alcohol withdrawal syndrome: Status: Acute (2) Pulmonary aspiration: Status: Acute Plan Pt is a 63-year-old male with a PMH significant for?HTN, HLD, [id number] type 2 diabetes, BPH, alcohol use disorder with hx of withdrawal seizures, hx of opioid use disorder on Suboxone, hx of aspiration pneumonia requiring emergent intubation in the past, anxiety, and depression who presents to the ED requesting detox. 1.Acute hypoxic respiratory failure in the setting of likely aspiration pneumonia -Zosyn (6) -titrate O2 to maintain sats greater than equal to 92% 2.Acute alcohol withdrawal -continue score 15-20 on CIWA scale.. No seizures -continue phenobarb protocol; aspiration precautions -requiring increased level of care; discussed with ICU attending. Will transfer to ICU 3.HTN -acceptable control on current therapies -adjust as indicated 4. Diabetes type 2 -acceptable control on current therapies -lispro correctional scale -adjust as indicated 5.Polysubstance use disorder -Suboxone Full Code Lovenox Requires ongoing hospitalization for phenobarb to treat acute alcohol withdrawal; IV antibiotics to treat aspiration pneumonia Quality Stroke Does the patient have a stroke diagnosis?: No VTE Prior VTE?: No VTE Risk Level:: Medical - moderate - high VTE Device Contraindication: Treatment Not Indicated VTE Drug Contraindication: N/A - Med Ordered
--- NOTE | 2023-12-04 13:06 | MHC.CM.PN ---
Pt to transfer to ICU.
[2023-12-04] MEDS: dexmedeTOMIDidine HCL/NS 400 MCG/100 ML INFUS..BTL 26.3 MCG IVCONT ×2 (13:57→14:20)
[2023-12-04] MEDS: PHENobarbitaL sodium 130 MG/ML VIAL IVPUSH ×2 (15:11→23:59)
--- NOTE | 2023-12-04 15:14 | PC.NURSE ---
Addendum entered by Jesse Howell RN 12/04/23 15:28: informed bladder scan 319ml Original Note: informed md of pt's bp 170-190s. no new orders at this time
--- NOTE | 2023-12-04 15:45 | W.PM.CCCN ---
History of Present Illness Data of Consult Service Date: 12/04/23 Primary Care Provider: Unknown Physician HPI Reason for consult: Agitation 63-year-old male with past medical history of hypertension, hyperlipidemia, diabetes mellitus, alcohol abuse disorder with history of alcohol withdrawal symptoms and alcohol withdrawal seizures once needing intubation for aspiration pneumonia, history of opioid abuse disorder on Suboxone, history of anxiety and depression was admitted to the hospital on 11/29/2023 requesting for detoxification. Upon admission patient was still drinking alcohol, he was intoxicated with slurred speech and confusion. His alcohol levels was over 200 upon admission; he stated he drinks at least a 5th off 100% proof vodka everyday with unknown amount of beer. He was admitted to the floor, treated with phenobarbital 30 mg b.i.d. and as needed Ativan 2 mg p.r.n. q.2 hours despite which he continued to have significant agitation, pulling the IV lines, uncontrollable behavior so has been transferred to medical ICU Review of Systems Review of Systems: Unable to obtain as patient is confused PMFSH Past Medical History Medical History (Updated 11/29/23 @ 13:40 by TONI Hodge) Alcohol use disorder, severe, dependence Alcohol abuse Hyperlipidemia Depression with anxiety Diabetes Hypertension Social History Social History Household Members: Children Household Members Other:: Self with a dog{ Parker} Housing: House Do you presently have visiting nurse or other home services: No Alcohol intake: current Alcohol intake frequency: 3 or more drinks per day Alcohol type: beer Comment: sitter in room Patient Tobacco Use Status: Former Tobacco user Smoked in Last 30 Days: Yes Second Hand Smoke Exposure: No Use of substances other than those prescribed or required for medical reasons: Yes Substance Use Type: Marijuana Currently Displaying Signs/Symptoms of Drug Intoxication Withdrawal: No Have you been hit, kicked, punched, or otherwise hurt by someone within the past year? If so, by whom?: No Do you feel safe in your current relationship?: No Current Relationship Is there a partner from a previous relationship who is making you feel unsafe now?: No Are you made to feel afraid or neglected: No Advance Directives: No Advance Directives Information Provided: No Do you have a plan to hurt others: No Plan Recently lost weight without trying: No How much weight loss: Not applicable Eating poorly because of decreased appetite: No Nutrition screen score: 0 Nutrition Risks: No Nutritional Risk Poor oral hygiene: No service: Yes Meds Allergies Allergy/AdvReac Type Severity Reaction Status Date / Time No Known Allergies Allergy Verified 11/29/23 13:30 Active Medications: Current Medications Acamprosate (Acamprosate Calcium 333 Mg Tablet.) 666 mg PO TID [facility] Last Admin: 12/04/23 15:12 Dose: Not Given Acetaminophen (Acetaminophen 325 Mg Tablet) 650 mg PO Q6H PRN PRN Reason: Pain, Mild (Pain Scale 1-3), fever or headache Last Admin: 12/02/23 23:46 Dose: 650 mg Atorvastatin Calcium (Atorvastatin Calcium 10 Mg Tablet) 10 mg PO BEDTIME [facility] Last Admin: 12/03/23 21:59 Dose: 10 mg Benzonatate (Benzonatate 100 Mg Capsule) 100 mg PO TID PRN PRN Reason: Cough Last Admin: 12/01/23 19:48 Dose: 100 mg Buprenorphine/Naloxone (Buprenorphine/Naloxone 8/2 Mg Film) 2 film BUCCAL DAILY [facility] Last Admin: 12/04/23 08:21 Dose: 2 film Buspirone HCl (Buspirone Hcl 5 Mg Tablet) 5 mg PO BID [facility] Last Admin: 12/04/23 08:20 Dose: 5 mg Calcium Carbonate (Calcium Carbonate 750 Mg Tab.Chew) 750 mg PO Q4H PRN PRN Reason: Heartburn Cyclobenzaprine HCl (Cyclobenzaprine Hcl 10 Mg Tablet) 10 mg PO TID PRN PRN Reason: Muscle Spasm Last Admin: 12/02/23 23:47 Dose: 10 mg Duloxetine HCl (Duloxetine Hcl 60 Mg Capsule.) 120 mg PO DAILY [facility] Last Admin: 12/04/23 08:20 Dose: 120 mg Enoxaparin Sodium (Enoxaparin Sodium 40 Mg/0.4 Ml Syringe) 40 mg SUBCUT Q24H [facility] Last Admin: 12/03/23 18:26 Dose: Not Given Famotidine (Famotidine 20 Mg Tablet) 20 mg PO BID [facility] Last Admin: 12/04/23 08:20 Dose: 20 mg Finasteride (Finasteride 5 Mg Tablet) 5 mg PO DAILY [facility] Last Admin: 12/04/23 08:21 Dose: 5 mg Gabapentin (Gabapentin 600 Mg Tablet) 1,200 mg PO TID PRN PRN Reason: Anxiety/Neuropathic Pain Last Admin: 12/02/23 23:47 Dose: 1,200 mg Glucose (Glucose Gel 15 Gm Gel..Gram.) 15 gm PO Q15M PRN; Protocol PRN Reason: per Hypoglycemia Standing Ord. Hydroxyzine HCl (Hydroxyzine Hcl 25 Mg Tablet) 25 mg PO BEDTIME PRN PRN Reason: Sleep Last Admin: 12/02/23 23:47 Dose: 25 mg Dextrose (D10) 250 mls @ 750 mls/hr IV Q15M PRN; Protocol PRN Reason: per Hypoglycemia Standing Ord. Piperacillin Sod/Tazobactam (Sod 4.5 gm/ Sodium Chloride) 100 mls @ 200 mls/hr IV Q6H [facility] Last Infusion: 12/04/23 14:37 Dose: Infused Dexmedetomidine HCl (Precedex) 400 mcg in 100 mls @ 0 mls/hr IVCONT .Q0M [facility]; Protocol Last Titration: 12/04/23 15:41 Dose: 1 mcg/kg/hr, 26.3 mls/hr Insulin Human Lispro (Insulin Lispro 100 Unit/Ml 3 Ml Vial) 0 unit SUBCUT QIDACHS [facility]; Protocol Last Admin: 12/04/23 12:07 Dose: Not Given Lorazepam (Lorazepam 2 Mg/Ml Vial) 2 mg IVPUSH Q2H PRN PRN Reason: withdrawl symptoms/CIWA Last Admin: 12/04/23 14:34 Dose: 2 mg Magnesium Hydroxide (Milk Of Magnesia 30 Ml Oral.Susp) 30 ml PO DAILY PRN PRN Reason: Constipation Magnesium Oxide (Magnesium Oxide 400 Mg Tablet) 400 mg PO DAILY [facility] Last Admin: 12/04/23 08:19 Dose: 400 mg Metoprolol Tartrate (Metoprolol Tartrate 50 Mg Tablet) 50 mg PO BID [facility]; Protocol Last Admin: 12/04/23 08:21 Dose: 50 mg Nicotine Polacrilex (Nicotine Polacrilex 2 Mg Gum) 2 mg BUCCAL Q2H PRN PRN Reason: Nicotine Cravings Last Admin: 12/03/23 09:37 Dose: 2 mg Ondansetron HCl (Ondansetron Hcl 4 Mg/2 Ml Vial) 4 mg IVPUSH Q8H PRN PRN Reason: Nausea and Vomiting Last Admin: 11/30/23 02:28 Dose: 4 mg Pharmacy Consult (Consult Rx Etoh Phenob Im/Po) 1 each MISCELLANE ONCE PRN; Protocol PRN Reason: Consult order Phenobarbital (Phenobarbital 30 Mg Tablet) 30 mg PO DAILY [facility]; Protocol Stop: 12/05/23 09:01 Last Admin: 12/04/23 08:20 Dose: 30 mg Phenobarbital Sodium (Phenobarbital Sodium 130 Mg/Ml Vial) 130 mg IVPUSH Q4H PRN PRN Reason: Alcohol Withdrawal Last Admin: 12/04/23 15:11 Dose: 130 mg Polyethylene Glycol (Polyethylene Glycol 3350 17 Gm Powd.Pack) 17 gm PO DAILY [facility] Last Admin: 12/04/23 10:32 Dose: Not Given Senna (Sennosides 8.6 Mg Tablet) 17.2 mg PO DAILY [facility] Last Admin: 12/04/23 08:20 Dose: 17.2 mg Sodium Chloride (0.9 % Sodium Chloride Flush 3 Ml Syringe) 3 ml IVFLUSH QSHIFT [facility] Last Admin: 12/04/23 13:35 Dose: Not Given Tamsulosin HCl (Tamsulosin Hcl 0.4 Mg Capsule) 0.8 mg PO DAILY@1730 [facility] Last Admin: 12/03/23 18:26 Dose: Not Given Trazodone HCl (Trazodone Hcl 100 Mg Tablet) 200 mg PO BEDTIME PRN PRN Reason: Insomnia Last Admin: 12/03/23 21:59 Dose: 200 mg Vitamin D (Cholecalciferol (Vitamin D3) 25 Mcg Tablet) 50 mcg PO DAILY [facility] Last Admin: 12/04/23 08:20 Dose: 50 mcg Home Medications ?Medication ?Instructions ?Recorded ?Confirmed ?Last Taken ?Type atorvastatin 20 mg tablet 10 mg PO BEDTIME 11/21/22 11/29/23 07/16/23 History buprenorphine 8 mg-naloxone 2 mg 2 film buccal DAILY 11/21/22 11/29/23 07/17/23 History sublingual film (Suboxone) buspirone 5 mg tablet 5 mg PO BID 11/21/22 11/29/23 07/17/23 History finasteride 5 mg tablet 5 mg PO DAILY 11/21/22 11/29/23 07/17/23 History gabapentin 400 mg capsule 1,200 mg PO TID PRN Anxiety/Pain 11/21/22 11/29/23 07/17/23 History hydroxyzine HCl 25 mg tablet 25 mg PO BEDTIME PRN Sleep 11/21/22 11/29/23 07/16/23 History melatonin 5 mg tablet 5 mg PO BEDTIME 11/21/22 11/29/23 07/17/23 History metformin 1,000 mg tablet 1,000 mg PO DAILY 11/21/22 11/29/23 07/17/23 History tamsulosin 0.4 mg capsule 0.8 mg PO BEDTIME 11/21/22 11/29/23 07/16/23 History trazodone 100 mg tablet 200 mg PO BEDTIME PRN Insomnia 11/21/22 11/29/23 07/16/23 History cyclobenzaprine 10 mg tablet 10 mg PO TID PRN Muscle Spasm 01/31/23 11/29/23 Unknown History duloxetine 60 mg capsule,delayed 120 mg PO DAILY 07/17/23 11/29/23 07/17/23 History release sprinkle testosterone 1.62 % (20.25 mg/1.25 2 packet transdermal DAILY 07/17/23 11/29/23 07/17/23 History gram) transdermal gel packet vitamin B complex 1 tab PO Q48H 07/17/23 11/29/23 07/17/23 History acamprosate 333 mg tablet,delayed 666 mg PO TID 11/29/23 11/29/23 Unknown History release cholecalciferol (vitamin D3) 50 50 mcg PO DAILY 11/29/23 11/29/23 Unknown History mcg (2,000 unit) tablet (Vitamin D3) magnesium oxide 400 mg PO DAILY 11/29/23 11/29/23 Unknown History metoprolol succinate 25 mg 25 mg PO BEDTIME 11/29/23 11/29/23 Unknown History tablet,extended release 24 hr polyethylene glycol 3350 17 17 g PO DAILY 11/29/23 11/29/23 Unknown History gram/dose oral powder sennosides 8.6 mg tablet (senna) 17.2 mg PO DAILY 11/29/23 11/29/23 Unknown History tadalafil 20 mg tablet 20 mg PO Q3D PRN Erectile 11/29/23 11/29/23 Unknown History Dysfunction Physical Exam Vital Signs: Vital Signs: Last Vital Signs Temp 97.9 F 12/04/23 14:18 Pulse 60 12/04/23 15:00 Resp 13 12/04/23 15:00 BP 191/119 H 12/04/23 15:00 Pulse Ox 96 12/04/23 15:00 O2 Del Method Nasal Cannula 12/04/23 15:00 O2 Flow Rate 4 12/04/23 15:00 BMI result Body Mass Index 33.3 General: ill appearing and tired appearing Nutritional Appearance: well nourished and overweight Eyes: appearance normal, both eyes and all related structures; Alignment and Position: alignment normal and position normal Neck: No lymphadenopathy, no thyromegaly Resp: bilateral air entry equal, occasional added sounds present Cardio: Regular rate, regular rhythm; Heart sounds: S1 normal heart sound present and S2 normal heart sound present GI: soft, nontender, no guarding, no hepatosplenomegaly : bladder normal to inspection, bladder normal to palpation, no renal angle tenderness Skin: no rashes or lesions noted and elasticity normal Neuro: Confused, drowsy, not following any commands, no focal deficits Results Labs 12/04/23 06:37 12/04/23 06:37 Labs: Short CBC 12/04/23 Range/Units 06:37 WBC 9.9 (4.8-10.8) X10*3/uL Hgb 12.8 L (14.0-18.0) g/dl Hct 37.7 L (42.0-52.0) % Plt Count 153 L D (160-400) X10*3/uL BMP 12/04/23 06:37 Sodium 142 Potassium 4.0 Chloride 103 Carbon Dioxide 32 H BUN 13 Creatinine 0.70 Calcium 9.1 Liver Function 12/04/23 Range/Units 06:37 Total Bilirubin 0.4 (0.0-1.0) mg/dL AST 37 (5-37) U/L ALT 48 H (0-40) U/L Alkaline Phosphatase 53 (39-117) U/L Albumin 3.5 (3.5-5.0) g/dL Microbiology Microbiology Results: Microbiology 11/29/23 14:22 Blood - Venous Blood Culture - Preliminary No growth after 48 hours. 11/29/23 14:22 Blood - Venous Blood Culture - Preliminary No growth after 48 hours. Assessment and Plan (1) Aspiration pneumonia: Status: Acute (2) Pulmonary aspiration: Status: Acute (3) Diabetes: Status: Acute (4) Hypertension: Status: Acute (5) Alcohol withdrawal syndrome: Qualifiers: Complication of substance-induced condition: uncomplicated Qualified Code(s): F10.930 - Alcohol use, unspecified with withdrawal, uncomplicated Status: Acute Plan Alcohol withdrawal syndromes: Patient is a chronic alcohol, has a history of alcohol withdrawal along with alcohol withdrawal seizures We will increase the phenobarbital to 130 mg as needed every 4 hours Started the patient on Precedex drip, we will titrate as needed We will add Librium b.i.d. to wean Precedex Anxiety/depression: Continue home trazodone, duloxetine and buspirone Opioid use disorder: Continue Suboxone Hypertension: On metoprolol 50 mg b.i.d. We will add labetalol 20 mg IV p.r.n. q.2 hours We will add clonidine patch as it might also help him from withdrawal Diabetes mellitus: On sliding scale as needed Prophylaxis: Lovenox
[2023-12-04] MEDS: Labetalol HCL 100 MG/20 ML VIAL 20 MG IVPUSH (16:14)
[2023-12-04 16:21] LABS: Glucose, Whole Blood 146 mg/dL (60-115)
[2023-12-04] MEDS: cloNIDine 0.3 MG PATCH.TDWK TRANSDERMA (16:32)
[2023-12-04] MEDS: Enoxaparin Sodium 40 MG/0.4 ML SYRINGE SUBCUT (17:16)
[2023-12-04 21:05] LABS: Glucose, Whole Blood 110 mg/dL (60-115)
[2023-12-05] VITALS (29 sets, daily range): BP systolic 121–172; BP diastolic 73–102; PULSE 48–91; RESP 7–20; TEMP 36.1–36.7; O2SAT 93–99; BMI 34.3
[2023-12-05] MEDS: Piperacillin Sodium/Tazobactam 4.5 GM in 0.9 % Sodium Chloride 100 ML IV ×4 (01:55→20:36)
[2023-12-05 05:05] LABS: VBG Base Excess 7.9 mmol/L; VBG HCO3 30 mmol/L (22-26); VBG pCO2 33 mmHg; VBG pH 7.56 (7.32-7.43); VBG pO2 129 mmHg
[2023-12-05 05:14] LABS: Venous Blood Gas Refer to POC result
[2023-12-05 05:47] LABS: Alanine Aminotransferase 46 U/L (0-40); Albumin Level 3.8 g/dL (3.5-5.0); Alkaline Phosphatase 58 U/L (39-117); Anion Gap 12 (12-20); Aspartate Amino Transferase 41 U/L (5-37); Bilirubin Total 0.5 mg/dL (0.0-1.0); Blood Urea Nitrogen 12 mg/dL (9-16); Calcium 9.2 mg/dL (8.4-10.2); Carbon Dioxide 29 mmol/L (22-29); Chloride 102 mmol/L (96-108); Creatinine Clr Calc Pharmacy 117.7; Estimated Glomerular Filt Rate > 60; Glucose Random 109 mg/dL (60-115); Magnesium 2.2 mg/dL (1.6-2.6); Phosphorus 3.3 mg/dL (2.7-4.5); Potassium 3.8 mmol/L (3.3-5.1); Sodium 139 mmol/L (135-145); Total Protein 6.6 g/dL (6.5-8.0)
[2023-12-05 06:06] LABS: Basophils Absolute Auto 0.1 X10*3/uL (0.0-0.2); Basophils Percent Auto 0.7 % (0-2); Eosinophils Absolute Auto 0.5 X10*3/uL (0.0-0.4); Hematocrit 39.3 % (42.0-52.0); Hemoglobin 13.2 g/dl (14.0-18.0); Imm Gran Abs Auto 0.01 X10*3/uL (0.00-0.03); Imm Gran Pct Auto 0.1 % (0.0-0.4); Lymphocytes Percent Auto 22.5 % (20-40); Mean Corpuscular HGB Conc 33.6 g/dl (31.0-36.0); Mean Corpuscular Hemoglobin 30.4 pg (27.0-33.0); Mean Corpuscular Volume 90.6 fL (80.0-98.0); Mean Platelet Volume 10.7 fL (9.4-12.4); Monocytes Percent Auto 10.9 % (2-11); Neutrophils Absolute Auto 5.4 x10*3/uL (2.0-8.3); Neutrophils Percent Auto 59.8 % (45-73); Platelet Count 142 X10*3/uL (160-400); Red Blood Count 4.34 X10*6/uL (4.60-5.80); Red Cell Distribution Width 13.7 % (11.0-16.0); White Blood Count 8.9 X10*3/uL (4.8-10.8)
[2023-12-05 06:11] LABS: MANUAL DIFF FLAG NO
[2023-12-05 07:54] LABS: Glucose, Whole Blood 116 mg/dL (60-115)
[2023-12-05] MEDS: 0.9 % Sodium Chloride Flush 3 ML SYRINGE IVFLUSH ×3 (08:01→21:36)
[2023-12-05] MEDS: polyethylene glycoL 3350 17 GM POWD.PACK PO (08:56)
[2023-12-05] MEDS: Metoprolol Tartrate 50 MG TABLET PO ×2 (08:56→21:32)
[2023-12-05] MEDS: Famotidine 20 MG TABLET PO ×2 (08:56→21:23)
[2023-12-05] MEDS: Magnesium Oxide 400 MG TABLET PO (08:57)
[2023-12-05] MEDS: Sennosides 8.6 MG TABLET 17.2 MG PO (08:57)
[2023-12-05] MEDS: Buprenorphine/Naloxone 8/2 mg FILM 2 FILM BUCCAL (08:57)
[2023-12-05] MEDS: busPIRone HCl 5 MG TABLET PO ×2 (08:57→21:23)
[2023-12-05] MEDS: Finasteride 5 MG TABLET PO (08:57)
[2023-12-05] MEDS: Cholecalciferol (Vitamin D3) 25 MCG TABLET 50 MCG PO (08:57)
[2023-12-05] MEDS: DULoxetine HCl 60 MG CAPSULE.DR 120 MG PO (08:57)
--- NOTE | 2023-12-05 08:58 | PM.CCPN ---
Subjective Subjective Date of Service: 12/05/23 Critical Care Time (minutes): 35 Comment: Continues to be drowsy and episodes of agitation Off Precedex drip since yesterday morning, on as needed phenobarbital Physical Exam Vital Signs: Vital Signs: Last Vital Signs Temp 96.8 F 12/05/23 08:05 Pulse 80 12/05/23 08:05 Resp 12 12/05/23 08:05 BP 138/88 12/05/23 08:05 Pulse Ox 97 12/05/23 08:05 O2 Del Method Nasal Cannula 12/05/23 08:05 O2 Flow Rate 4 12/05/23 08:05 BMI result Body Mass Index 34.3 General: acute distress, ill appearing and tired appearing Nutritional Appearance: well nourished and overweight Eyes: appearance normal, both eyes and all related structures; Alignment and Position: alignment normal and position normal Neck: No lymphadenopathy, no thyromegaly Resp: bilateral air entry equal, no added sounds present Cardio: Regular rate, regular rhythm; Heart sounds: S1 normal heart sound present and S2 normal heart sound present GI: soft, nontender, no guarding, no hepatosplenomegaly : bladder normal to inspection, bladder normal to palpation, no renal angle tenderness Skin: no rashes or lesions noted and elasticity normal Neuro: Drowsy, confused, not following commands and moves all extremities Objective Data Labs 12/05/23 05:59 12/05/23 04:51 Labs: Laboratory Results - last 24 hr 12/04/23 12/04/23 12/04/23 11:48 16:18 21:01 WBC RBC Hgb Hct MCV MCH MCHC RDW Plt Count MPV Immature Gran % (Auto) Neut % (Auto) Lymph % (Auto) [place] % (Auto) Eos % (Auto) Baso % (Auto) Lymph # (Auto) [place] # (Auto) Eos # (Auto) Baso # (Auto) Abs Immat Gran (auto) Absolute Neuts (auto) Absolute Nucleated RBC Nucleated RBC % (auto) VBG pH VBG pCO2 VBG pO2 VBG HCO3 VBG O2 Saturation VBG Base Excess Sodium Potassium Chloride Carbon Dioxide Anion Gap BUN Creatinine Estim Creat Clear Calc Estimated GFR POC Glucose 150 H 146 H 110 Random Glucose Calcium Phosphorus Magnesium Total Bilirubin AST ALT Alkaline Phosphatase Total Protein Albumin 12/05/23 12/05/23 12/05/23 04:51 04:54 05:59 WBC 8.9 RBC 4.34 L Hgb 13.2 L Hct 39.3 L MCV 90.6 MCH 30.4 MCHC 33.6 RDW 13.7 Plt Count 142 L MPV 10.7 Immature Gran % (Auto) 0.1 Neut % (Auto) 59.8 Lymph % (Auto) 22.5 [place] % (Auto) 10.9 Eos % (Auto) 6.0 H Baso % (Auto) 0.7 Lymph # (Auto) 2.0 [place] # (Auto) 1.0 Eos # (Auto) 0.5 H Baso # (Auto) 0.1 Abs Immat Gran (auto) 0.01 Absolute Neuts (auto) 5.4 Absolute Nucleated RBC 0.000 Nucleated RBC % (auto) 0.0 VBG pH 7.56 H VBG pCO2 33 VBG pO2 129 VBG HCO3 30 H VBG O2 Saturation 100.0 VBG Base Excess 7.9 Sodium 139 Potassium 3.8 Chloride 102 Carbon Dioxide 29 Anion Gap 12 BUN 12 Creatinine 0.76 Estim Creat Clear Calc 117.7 Estimated GFR > 60 POC Glucose Random Glucose 109 Calcium 9.2 Phosphorus 3.3 Magnesium 2.2 Total Bilirubin 0.5 AST 41 H ALT 46 H Alkaline Phosphatase 58 Total Protein 6.6 Albumin 3.8 12/05/23 07:45 WBC RBC Hgb Hct MCV MCH MCHC RDW Plt Count MPV Immature Gran % (Auto) Neut % (Auto) Lymph % (Auto) [place] % (Auto) Eos % (Auto) Baso % (Auto) Lymph # (Auto) [place] # (Auto) Eos # (Auto) Baso # (Auto) Abs Immat Gran (auto) Absolute Neuts (auto) Absolute Nucleated RBC Nucleated RBC % (auto) VBG pH VBG pCO2 VBG pO2 VBG HCO3 VBG O2 Saturation VBG Base Excess Sodium Potassium Chloride Carbon Dioxide Anion Gap BUN Creatinine Estim Creat Clear Calc Estimated GFR POC Glucose 116 H Random Glucose Calcium Phosphorus Magnesium Total Bilirubin AST ALT Alkaline Phosphatase Total Protein Albumin Microbiology Microbiology Results: Microbiology 11/29/23 14:22 Blood - Venous Blood Culture - Final No growth after 5 days. 11/29/23 14:22 Blood - Venous Blood Culture - Final No growth after 5 days. Progress Note: A&P Assessment and plan (1) Aspiration pneumonia: Status: Acute (2) Pulmonary aspiration: Status: Acute (3) Diabetes: Status: Acute (4) Hypertension: Status: Acute (5) Alcohol withdrawal syndrome: Status: Acute Plan Alcohol withdrawal syndromes: Patient is a chronic alcohol, has a history of alcohol withdrawal along with alcohol withdrawal seizures As needed phenobarbital to 130 mg as needed every 4 hours, received 2 doses overnight Precedex was stopped at 5PM We will add PO phenobarbital to decrease the requirement of IM phenobarbital Anxiety/depression: Continue home trazodone, duloxetine and buspirone Opioid use disorder: Continue Suboxone Hypertension: On metoprolol 50 mg b.i.d. on PRN labetalol 20 mg IV p.r.n. q.2 hours continue clonidine patch as it might also help him from withdrawal blood pressures better controlled this morning Diabetes mellitus: On sliding scale as needed Prophylaxis: Lovenox Quality Stroke Does the patient have a stroke diagnosis?: No VTE Prior VTE?: No VTE Risk Level:: Medical - moderate - high VTE Device Contraindication: Treatment Not Indicated VTE Drug Contraindication: N/A - Med Ordered
[2023-12-05] MEDS: Acamprosate Calcium 333 MG TABLET.DR 666 MG PO ×3 (09:04→21:23)
[2023-12-05] MEDS: PHENobarbitaL 30 MG TABLET 60 MG PO ×3 (10:37→21:32)
[2023-12-05 11:43] LABS: Glucose, Whole Blood 115 mg/dL (60-115)
[2023-12-05] MEDS: LORazepam 2 MG/ML VIAL IVPUSH (12:49)
--- NOTE | 2023-12-05 14:00 | MHC.CM.PN ---
Addendum entered by Jenniffer Warren 12/05/23 14:05: Received call from pt's sister/HCP Hannah who states pt was independent w/all care needs, had no services and has a CPAP that he does not use. Hannah will transport pt to home when ready. She states he will likely decline VNA services but is receptive to revisiting this option closer to d/c. CM to follow Original Note: Pt continues care in ICU for ETOH w/d. Has been off Precedex gtt - making progress towards downgrade - lethargic at times. Discharge plan to be finalized once pt is medically stable.
[2023-12-05] MEDS: PHENobarbitaL sodium 130 MG/ML VIAL IM (16:12)
[2023-12-05 17:25] LABS: Glucose, Whole Blood 127 mg/dL (60-115)
[2023-12-05] MEDS: PHENobarbitaL sodium 130 MG/ML VIAL 260 MG IM (17:25)
[2023-12-05] MEDS: Tamsulosin HCL 0.4 MG CAPSULE 0.8 MG PO (17:26)
[2023-12-05] MEDS: Enoxaparin Sodium 40 MG/0.4 ML SYRINGE SUBCUT (17:26)
[2023-12-05] MEDS: dexmedeTOMIDidine HCL/NS 400 MCG/100 ML INFUS..BTL 26.3 MCG IVCONT ×2 (17:37→20:03)
--- NOTE | 2023-12-05 17:39 | PC.NURSE ---
Patient experiencing worsening withdrawal symptoms. Patient difficult to redirect, pulling at lines and wires, attempting to get OOB. SBP maintaining 160-170's. MD notified and at bedside. Patient medicated with IMC pheno per EMAR without good effect. Patient restarted on precedex gtt per MD. High fall risk precautions in place. Bedside sitter in place. Care ongoing.
[2023-12-05] MEDS: hydrALAZINE HCl 20 MG/ML VIAL 10 MG IVPUSH (20:32)
[2023-12-05] MEDS: Atorvastatin Calcium 10 MG TABLET PO (21:23)
[2023-12-05 21:40] LABS: Glucose, Whole Blood 140 mg/dL (60-115)
[2023-12-06] VITALS (34 sets, daily range): BP systolic 104–172; BP diastolic 55–107; PULSE 52–64; RESP 12–20; TEMP 36.3–37.1; O2SAT 91–98; BMI 32.7
[2023-12-06] MEDS: dexmedeTOMIDidine HCL/NS 400 MCG/100 ML INFUS..BTL 26.3 MCG IVCONT (00:10)
[2023-12-06] MEDS: Piperacillin Sodium/Tazobactam 4.5 GM in 0.9 % Sodium Chloride 100 ML IV ×4 (02:15→20:57)
[2023-12-06] MEDS: dexmedeTOMIDidine HCL/NS 400 MCG/100 ML INFUS..BTL 21.04 MCG IVCONT ×2 (03:55→08:43)
[2023-12-06 05:09] LABS: MANUAL DIFF FLAG NO
[2023-12-06 05:15] LABS: Basophils Absolute Auto 0.1 X10*3/uL (0.0-0.2); Basophils Percent Auto 0.7 % (0-2); Eosinophils Absolute Auto 0.4 X10*3/uL (0.0-0.4); Eosinophils Percent Auto 4.1 % (0-4); Hematocrit 40.8 % (42.0-52.0); Hemoglobin 13.9 g/dl (14.0-18.0); Imm Gran Abs Auto 0.03 X10*3/uL (0.00-0.03); Imm Gran Pct Auto 0.3 % (0.0-0.4); Lymphocytes Absolute Auto 1.7 X10*3/uL (1.2-4.9); Lymphocytes Percent Auto 19.1 % (20-40); Mean Corpuscular HGB Conc 34.1 g/dl (31.0-36.0); Mean Corpuscular Hemoglobin 30.3 pg (27.0-33.0); Mean Corpuscular Volume 89.1 fL (80.0-98.0); Mean Platelet Volume 11.5 fL (9.4-12.4); Monocytes Absolute Auto 0.9 X10*3/uL (0.1-1.2); Monocytes Percent Auto 10.5 % (2-11); Neutrophils Absolute Auto 5.7 x10*3/uL (2.0-8.3); Neutrophils Percent Auto 65.3 % (45-73); Platelet Count 151 X10*3/uL (160-400); Red Blood Count 4.58 X10*6/uL (4.60-5.80); Red Cell Distribution Width 13.5 % (11.0-16.0); White Blood Count 8.7 X10*3/uL (4.8-10.8)
[2023-12-06 05:35] LABS: Alanine Aminotransferase 49 U/L (0-40); Albumin Level 3.9 g/dL (3.5-5.0); Alkaline Phosphatase 62 U/L (39-117); Anion Gap 14 (12-20); Aspartate Amino Transferase 40 U/L (5-37); Bilirubin Total 0.7 mg/dL (0.0-1.0); Blood Urea Nitrogen 11 mg/dL (9-16); Calcium 9.4 mg/dL (8.4-10.2); Carbon Dioxide 27 mmol/L (22-29); Chloride 102 mmol/L (96-108); Creatinine Clr Calc Pharmacy 110.9; Estimated Glomerular Filt Rate > 60; Glucose Random 128 mg/dL (60-115); Magnesium 2.1 mg/dL (1.6-2.6); Phosphorus 2.8 mg/dL (2.7-4.5); Potassium 3.8 mmol/L (3.3-5.1); Sodium 139 mmol/L (135-145)
[2023-12-06 07:20] LABS: Glucose, Whole Blood 127 mg/dL (60-115)
[2023-12-06] MEDS: polyethylene glycoL 3350 17 GM POWD.PACK PO (08:29)
[2023-12-06] MEDS: Acamprosate Calcium 333 MG TABLET.DR 666 MG PO (08:30)
[2023-12-06] MEDS: busPIRone HCl 5 MG TABLET PO (08:33)
[2023-12-06] MEDS: Famotidine 20 MG TABLET PO (08:33)
[2023-12-06] MEDS: DULoxetine HCl 60 MG CAPSULE.DR 120 MG PO (08:33)
[2023-12-06] MEDS: Cholecalciferol (Vitamin D3) 25 MCG TABLET 50 MCG PO (08:34)
[2023-12-06] MEDS: Magnesium Oxide 400 MG TABLET PO (08:34)
[2023-12-06] MEDS: Finasteride 5 MG TABLET PO (08:36)
[2023-12-06] MEDS: 0.9 % Sodium Chloride Flush 3 ML SYRINGE IVFLUSH (08:37)
[2023-12-06] MEDS: Sennosides 8.6 MG TABLET 17.2 MG PO (08:50)
[2023-12-06] MEDS: Buprenorphine/Naloxone 8/2 mg FILM 2 FILM BUCCAL (09:00)
[2023-12-06] MEDS: Metoprolol Tartrate 50 MG TABLET PO (09:38)
[2023-12-06] MEDS: PHENobarbitaL sodium 130 MG/ML VIAL 260 MG IM ×3 (10:23→23:05)
[2023-12-06 11:27] LABS: Glucose, Whole Blood 135 mg/dL (60-115)
--- NOTE | 2023-12-06 14:25 | MHC.CM.PN ---
Pt continues on Phenobarb for ETOH management. Pt frequently attempting to get OOB and requires redirection and reorienting. Pt may need PT eval and assessment by CARE team when he is medically stable. Original d/c plan is for a return to home w/possible VNA. Sister to transport.
[2023-12-06] MEDS: OLANZapine 10 MG VIAL IM (14:35)
[2023-12-06] MEDS: dexmedeTOMIDidine HCL/NS 400 MCG/100 ML INFUS..BTL 34.19 MCG IVCONT ×3 (14:56→20:57)
[2023-12-06 16:10] LABS: Glucose, Whole Blood 132 mg/dL (60-115)
--- NOTE | 2023-12-06 16:57 | PM.CCPN ---
Subjective Subjective Date of Service: 12/06/23 Critical Care Time (minutes): 25 Comment: Continues to be very much agitated despite being on Precedex drip and receiving multiple pushes of phenobarbital IM Physical Exam Vital Signs: Vital Signs: Last Vital Signs Temp 98.7 F 12/06/23 15:52 Pulse 59 12/06/23 15:52 Resp 15 12/06/23 15:52 BP 163/84 H 12/06/23 15:52 Pulse Ox 94 12/06/23 15:52 O2 Del Method Nasal Cannula 12/06/23 15:52 O2 Flow Rate 2 12/06/23 15:52 BMI result Body Mass Index 32.7 General: ill appearing and tired appearing Nutritional Appearance: well nourished and overweight Eyes: appearance normal, both eyes and all related structures; Alignment and Position: alignment normal and position normal Neck: No lymphadenopathy, no thyromegaly Resp: bilateral air entry equal, occasional added sounds present Cardio: Regular rate, regular rhythm; Heart sounds: S1 normal heart sound present and S2 normal heart sound present GI: soft, nontender, no guarding, no hepatosplenomegaly : bladder normal to inspection, bladder normal to palpation, no renal angle tenderness Skin: no rashes or lesions noted and elasticity normal Neuro: Extreme delirium, agitation present, confusion present Objective Data Labs 12/06/23 04:42 12/06/23 04:42 Labs: Laboratory Results - last 24 hr 12/05/23 12/05/23 12/06/23 17:21 21:36 04:42 WBC 8.7 RBC 4.58 L Hgb 13.9 L Hct 40.8 L MCV 89.1 MCH 30.3 MCHC 34.1 RDW 13.5 Plt Count 151 L MPV 11.5 Immature Gran % (Auto) 0.3 Neut % (Auto) 65.3 Lymph % (Auto) 19.1 L [place] % (Auto) 10.5 Eos % (Auto) 4.1 H Baso % (Auto) 0.7 Lymph # (Auto) 1.7 [place] # (Auto) 0.9 Eos # (Auto) 0.4 Baso # (Auto) 0.1 Abs Immat Gran (auto) 0.03 Absolute Neuts (auto) 5.7 Absolute Nucleated RBC 0.000 Nucleated RBC % (auto) 0.0 Sodium 139 Potassium 3.8 Chloride 102 Carbon Dioxide 27 Anion Gap 14 BUN 11 Creatinine 0.80 Estim Creat Clear Calc 110.9 Estimated GFR > 60 POC Glucose 127 H 140 H Random Glucose 128 H Calcium 9.4 Phosphorus 2.8 Magnesium 2.1 Total Bilirubin 0.7 AST 40 H ALT 49 H Alkaline Phosphatase 62 Total Protein 7.0 Albumin 3.9 12/06/23 12/06/23 12/06/23 07:16 11:24 15:56 WBC RBC Hgb Hct MCV MCH MCHC RDW Plt Count MPV Immature Gran % (Auto) Neut % (Auto) Lymph % (Auto) [place] % (Auto) Eos % (Auto) Baso % (Auto) Lymph # (Auto) [place] # (Auto) Eos # (Auto) Baso # (Auto) Abs Immat Gran (auto) Absolute Neuts (auto) Absolute Nucleated RBC Nucleated RBC % (auto) Sodium Potassium Chloride Carbon Dioxide Anion Gap BUN Creatinine Estim Creat Clear Calc Estimated GFR POC Glucose 127 H 135 H 132 H Random Glucose Calcium Phosphorus Magnesium Total Bilirubin AST ALT Alkaline Phosphatase Total Protein Albumin Microbiology Microbiology Results: Microbiology 11/29/23 14:22 Blood - Venous Blood Culture - Final No growth after 5 days. 11/29/23 14:22 Blood - Venous Blood Culture - Final No growth after 5 days. Progress Note: A&P Assessment and plan (1) Aspiration pneumonia: Status: Acute (2) Pulmonary aspiration: Status: Acute (3) Diabetes: Status: Acute (4) Hypertension: Status: Acute (5) Alcohol withdrawal syndrome: Status: Acute Plan Alcohol withdrawal syndromes: Patient is a chronic alcohol, has a history of alcohol withdrawal along with alcohol withdrawal seizures As needed phenobarbital increased to 260 mg as needed every 3 hours, received 2 doses since this morning, also received 10 mg of Zyprexa IM Continue PO phenobarbital to decrease the requirement of IM phenobarbital Sitting on Precedex drip to to control agitation Anxiety/depression: Continue home trazodone, duloxetine and buspirone Opioid use disorder: Continue Suboxone Hypertension: On metoprolol 50 mg b.i.d. on PRN labetalol 20 mg IV p.r.n. q.2 hours continue clonidine patch as it might also help him from withdrawal blood pressures better controlled Diabetes mellitus: On sliding scale as needed Prophylaxis: Lovenox Quality Stroke Does the patient have a stroke diagnosis?: No VTE Prior VTE?: No VTE Risk Level:: Medical - moderate - high VTE Device Contraindication: Treatment Not Indicated VTE Drug Contraindication: N/A - Med Ordered
[2023-12-06] MEDS: Enoxaparin Sodium 40 MG/0.4 ML SYRINGE SUBCUT (18:13)
[2023-12-06 21:18] LABS: Glucose, Whole Blood 115 mg/dL (60-115)
[2023-12-06] MEDS: dexmedeTOMIDidine HCL/NS 400 MCG/100 ML INFUS..BTL 39.45 MCG IVCONT (23:11)
[2023-12-07] VITALS (35 sets, daily range): BP systolic 84–157; BP diastolic 49–97; PULSE 18–73; RESP 13–18; TEMP 33.5–36.9; O2SAT 92–100; BMI 32.8
[2023-12-07] MEDS: PHENobarbitaL sodium 130 MG/ML VIAL 260 MG IM (01:45)
[2023-12-07] MEDS: dexmedeTOMIDidine HCL/NS 400 MCG/100 ML INFUS..BTL 39.45 MCG IVCONT (02:00)
[2023-12-07] MEDS: Piperacillin Sodium/Tazobactam 4.5 GM in 0.9 % Sodium Chloride 100 ML IV ×4 (02:01→20:53)
--- NOTE | 2023-12-07 02:31 | W.PM.CCHP ---
Procedures Date of Service Date of Service: 12/07/23 Intubation Intubation Comments: Patient with severe agitation refractory to maximum dose of Precedex drip and multiple doses of push dose sedatives requiring intubation for airway protection with deep sedation emergently intubated with 8 cuffed ET tube with GlideScope visualization and no immediate complications.? ET tube position verified with Chest X-RAY. Consent for Procedure: Emergent-no informed consent obtained Time out performed: Yes Sedative: propofol Mg given: 100 Paralytic: rocuronium Mg given: 50 Laryngoscope: fiber optic video scope ET tube size: 8 ET tube uncuffed: No Tube secured depth (cm): 26 Tube secured location: lips Tube placement confirmation: visualized tube passing through cords, equal breath sounds bilaterally, no breath sounds over epigastrium and confirmation by capnometry Patient tolerated procedure: well and no complications Intubation complications: none
[2023-12-07] MEDS: propofoL 1,000 MG/100 ML VIAL 18.63 MG IVCONT (02:41)
--- NOTE | 2023-12-07 03:02 | PM.EVENT ---
Documented by User: Kareen Goodman NP 12/07/23 03:03 Event Note Date of Service: 12/07/23 Event Note: Hypotension is related to sedation from intubation, no evidence of infection Time Spent With Patient Time: Total time managing care of this patient today ____ minutes. Documented by User: Sage Flower MD 12/08/23 14:47 Event Note Date of Service: 12/08/23
[2023-12-07] MEDS: propofoL 200 MG/20 ML VIAL 100 MG IVPUSH (03:09)
[2023-12-07] MEDS: Rocuronium Bromide 50 MG/5 ML VIAL IVPUSH (03:09)
[2023-12-07] MEDS: Lactated Ringers 1,000 ML 999 ML IV (03:09)
[2023-12-07] MEDS: PHENobarbitaL 30 MG TABLET 60 MG PO (04:48)
[2023-12-07] MEDS: propofoL 1,000 MG/100 ML VIAL 24.84 MG IVCONT (04:57)
--- NOTE | 2023-12-07 05:07 | PC.NURSE ---
At approx 0200- pt agitated, trying to get OOB with 1:1 sitter at bedside, non-redirectable despite max dose of Precedex and PRN Pheno given per MAY. Decision made to intubate by PEDRO PABLO Goodman. Given Propofol 100 mg and Rocuronium 50 mg IVP for RSI. ETT #8.0, 26 cm at lip. Propofol gtt started for sedation per MAY. On ACVC settings, see vent assessment. OGT placed. Tube placements confirmed by pCXR.
[2023-12-07 05:19] LABS: VBG Base Excess 3.7 mmol/L; VBG HCO3 25 mmol/L (22-26); VBG pCO2 28 mmHg; VBG pH 7.54 (7.32-7.43); VBG pO2 69 mmHg
[2023-12-07 05:24] LABS: Venous Blood Gas Refer to POC result
[2023-12-07 05:43] LABS: MANUAL DIFF FLAG NO
[2023-12-07 05:45] LABS: Basophils Absolute Auto 0.1 X10*3/uL (0.0-0.2); Basophils Percent Auto 0.6 % (0-2); Eosinophils Absolute Auto 0.3 X10*3/uL (0.0-0.4); Eosinophils Percent Auto 3.6 % (0-4); Hematocrit 38.4 % (42.0-52.0); Hemoglobin 13.3 g/dl (14.0-18.0); Imm Gran Abs Auto 0.03 X10*3/uL (0.00-0.03); Imm Gran Pct Auto 0.3 % (0.0-0.4); Lymphocytes Absolute Auto 2.4 X10*3/uL (1.2-4.9); Lymphocytes Percent Auto 27.7 % (20-40); Mean Corpuscular HGB Conc 34.6 g/dl (31.0-36.0); Mean Corpuscular Hemoglobin 31.2 pg (27.0-33.0); Mean Corpuscular Volume 90.1 fL (80.0-98.0); Monocytes Percent Auto 11.7 % (2-11); Neutrophils Absolute Auto 4.9 x10*3/uL (2.0-8.3); Neutrophils Percent Auto 56.1 % (45-73); Platelet Count 148 X10*3/uL (160-400); Red Blood Count 4.26 X10*6/uL (4.60-5.80); Red Cell Distribution Width 13.7 % (11.0-16.0); White Blood Count 8.7 X10*3/uL (4.8-10.8)
[2023-12-07 06:03] LABS: Alanine Aminotransferase 34 U/L (0-40); Albumin Level 3.5 g/dL (3.5-5.0); Alkaline Phosphatase 55 U/L (39-117); Anion Gap 14 (12-20); Aspartate Amino Transferase 28 U/L (5-37); Bilirubin Total 0.5 mg/dL (0.0-1.0); Blood Urea Nitrogen 13 mg/dL (9-16); Carbon Dioxide 22 mmol/L (22-29); Chloride 105 mmol/L (96-108); Creatinine Clr Calc Pharmacy 121.6; Estimated Glomerular Filt Rate > 60; Glucose Random 107 mg/dL (60-115); Phosphorus 1.8 mg/dL (2.7-4.5); Potassium 3.3 mmol/L (3.3-5.1); Sodium 138 mmol/L (135-145); Total Protein 6.2 g/dL (6.5-8.0)
[2023-12-07 07:44] LABS: Glucose, Whole Blood 91 mg/dL (60-115)
[2023-12-07] MEDS: propofoL 1,000 MG/100 ML VIAL 31.05 MG IVCONT ×5 (08:53→20:56)
[2023-12-07] MEDS: 0.9 % Sodium Chloride Flush 3 ML SYRINGE IVFLUSH ×2 (09:23→16:38)
[2023-12-07] MEDS: Potassium Phosphate/NS 15 MMOL/250 ML PLAST..BAG 62.5 MMOL IV ×2 (09:24→13:48)
[2023-12-07] MEDS: Chlorhexidine Gluc Oral Rinse 15 ML MOUTHWASH BUCCAL ×3 (09:24→20:54)
[2023-12-07] MEDS: Famotidine/PF 20 MG/2 ML VIAL IVPUSH (09:24)
[2023-12-07 11:49] LABS: Glucose, Whole Blood 97 mg/dL (60-115)
--- NOTE | 2023-12-07 15:16 | P.PNCC_ITS ---
Subjective Subjective Date of Service: 12/07/23 Critical Care Time (minutes): 35 Comment: Patient was extremely agitated and combative despite being on Precedex drip and receiving phenobarbital so he was intubated and placed on ventilator support last night Physical Exam 2 Vital Signs: Vital Signs: Last Vital Signs Temp 97.7 F 12/07/23 14:56 Pulse 57 12/07/23 14:56 Resp 18 12/07/23 14:56 BP 105/59 L 12/07/23 14:56 Pulse Ox 92 12/07/23 14:56 O2 Del Method Mechanical Ventil ation 12/07/23 14:56 O2 Flow Rate 2 12/07/23 01:00 FiO2 50 12/07/23 14:56 BMI result Body Mass Index 32.8 General: acute distress, ill appearing and tired appearing Nutritional Appearance: well nourished and overweight Eyes: appearance normal, both eyes and all related structures; Alignment and Position: alignment normal and position normal Neck: No lymphadenopathy, no thyromegaly Resp: bilateral air entry equal, occasional added sounds present Cardio: Regular rate, regular rhythm; Heart sounds: S1 normal heart sound present and S2 normal heart sound present GI: soft, nontender, no guarding, no hepatosplenomegaly : bladder normal to inspection, bladder normal to palpation, no renal angle tenderness Skin: no rashes or lesions noted and elasticity normal Neuro: Sedated, no focal deficits moves all extremities Objective Data Labs 12/07/23 05:11 12/07/23 05:11 Labs: Laboratory Results - last 24 hr 12/06/23 12/06/23 12/07/23 15:56 21:10 05:09 WBC RBC Hgb Hct MCV MCH MCHC RDW Plt Count MPV Immature Gran % (Auto) Neut % (Auto) Lymph % (Auto) [place] % (Auto) Eos % (Auto) Baso % (Auto) Lymph # (Auto) [place] # (Auto) Eos # (Auto) Baso # (Auto) Abs Immat Gran (auto) Absolute Neuts (auto) Absolute Nucleated RBC Nucleated RBC % (auto) VBG pH 7.54 H VBG pCO2 28 VBG pO2 69 VBG HCO3 25 VBG O2 Saturation 95.0 VBG Base Excess 3.7 Sodium Potassium Chloride Carbon Dioxide Anion Gap BUN Creatinine Estim Creat Clear Calc Estimated GFR POC Glucose 132 H 115 Random Glucose Calcium Phosphorus Magnesium Total Bilirubin AST ALT Alkaline Phosphatase Total Protein Albumin 12/07/23 12/07/23 12/07/23 05:11 07:41 11:45 WBC 8.7 RBC 4.26 L Hgb 13.3 L Hct 38.4 L MCV 90.1 MCH 31.2 MCHC 34.6 RDW 13.7 Plt Count 148 L MPV 11.0 Immature Gran % (Auto) 0.3 Neut % (Auto) 56.1 Lymph % (Auto) 27.7 [place] % (Auto) 11.7 H Eos % (Auto) 3.6 Baso % (Auto) 0.6 Lymph # (Auto) 2.4 [place] # (Auto) 1.0 Eos # (Auto) 0.3 Baso # (Auto) 0.1 Abs Immat Gran (auto) 0.03 Absolute Neuts (auto) 4.9 Absolute Nucleated RBC 0.000 Nucleated RBC % (auto) 0.0 VBG pH VBG pCO2 VBG pO2 VBG HCO3 VBG O2 Saturation VBG Base Excess Sodium 138 Potassium 3.3 Chloride 105 Carbon Dioxide 22 Anion Gap 14 BUN 13 Creatinine 0.73 Estim Creat Clear Calc 121.6 Estimated GFR > 60 POC Glucose 91 97 Random Glucose 107 Calcium 9.0 Phosphorus 1.8 L Magnesium 2.0 Total Bilirubin 0.5 AST 28 ALT 34 Alkaline Phosphatase 55 Total Protein 6.2 L Albumin 3.5 Microbiology Microbiology Results: Microbiology 11/29/23 14:22 Blood - Venous Blood Culture - Final No growth after 5 days. 11/29/23 14:22 Blood - Venous Blood Culture - Final No growth after 5 days. Progress Note: A&P Assessment and plan (1) Aspiration pneumonia: Status: Acute (2) Pulmonary aspiration: Status: Acute (3) Diabetes: Status: Acute (4) Hypertension: Status: Acute (5) Alcohol withdrawal syndrome: Status: Acute Plan Acute encephalopathy secondary to Alcohol withdrawal syndromes: Patient is a chronic alcohol, has a history of alcohol withdrawal along with alcohol withdrawal seizures Patient was combative despite being on a Precedex drip and receiving as needed phenobarbital to 60 mg so he was intubated and placed on ventilator support Continue propofol drip and fentanyl Acute respiratory failure: Secondary to poor respiratory efforts On ventilator support Continue PRVC mode of ventilation, FiO2 30%, peep 5 No plans for extubation today and tomorrow. Anxiety/depression: home trazodone, duloxetine and buspirone held after intubation Opioid use disorder: Continue Suboxone Hypertension: On metoprolol 50 mg b.i.d. on PRN labetalol 20 mg IV p.r.n. q.2 hours continue clonidine patch as it might also help him from withdrawal blood pressures better controlled Diabetes mellitus: On sliding scale as needed Prophylaxis: Lovenox Quality Stroke Does the patient have a stroke diagnosis?: No VTE Prior VTE?: No VTE Risk Level:: Medical - moderate - high VTE Device Contraindication: Treatment Not Indicated VTE Drug Contraindication: N/A - Med Ordered
[2023-12-07 17:57] LABS: Glucose, Whole Blood 83 mg/dL (60-115)
[2023-12-07] MEDS: Enoxaparin Sodium 40 MG/0.4 ML SYRINGE SUBCUT (18:00)
[2023-12-07] MEDS: Atorvastatin Calcium 10 MG TABLET PO (20:53)
[2023-12-07] MEDS: fentaNYL citrate/NS 1,000 MCG/100 ML PLAST..BAG 2.5 MCG IVCONT (21:33)
[2023-12-08] VITALS (36 sets, daily range): BP systolic 118–165; BP diastolic 64–92; PULSE 49–81; RESP 14–18; TEMP 34.7–37.6; O2SAT 90–96; BMI 32.8
[2023-12-08] MEDS: Midazolam HCl/PF 2 MG/2 ML VIAL 4 MG IVPUSH
[2023-12-08] MEDS: propofoL 1,000 MG/100 ML VIAL 31.05 MG IVCONT ×5 (00:08→21:12)
[2023-12-08 00:12] LABS: Glucose, Whole Blood 76 mg/dL (60-115)
[2023-12-08] MEDS: Piperacillin Sodium/Tazobactam 4.5 GM in 0.9 % Sodium Chloride 100 ML IV ×4 (02:14→19:48)
[2023-12-08] MEDS: dexmedeTOMIDidine HCL/NS 400 MCG/100 ML INFUS..BTL 26.3 MCG IVCONT ×3 (02:25→12:44)
[2023-12-08] MEDS: fentaNYL citrate/NS 1,000 MCG/100 ML PLAST..BAG 10 MCG IVCONT ×2 (04:46→14:20)
[2023-12-08] MEDS: dexmedeTOMIDidine HCL/NS 400 MCG/100 ML INFUS..BTL IVCONT (04:48)
[2023-12-08] MEDS: propofoL 1,000 MG/100 ML VIAL 18.63 MG IVCONT ×2 (04:49→10:40)
[2023-12-08 05:38] LABS: VBG Base Excess -0.3 mmol/L; VBG HCO3 22 mmol/L (22-26); VBG pCO2 29 mmHg; VBG pH 7.48 (7.32-7.43); VBG pO2 61 mmHg
[2023-12-08 05:42] LABS: Venous Blood Gas Refer to POC result
[2023-12-08 06:04] LABS: MANUAL DIFF FLAG NO
[2023-12-08 06:06] LABS: Basophils Percent Auto 0.4 % (0-2); Eosinophils Absolute Auto 0.3 X10*3/uL (0.0-0.4); Eosinophils Percent Auto 4.6 % (0-4); Hematocrit 39.4 % (42.0-52.0); Hemoglobin 13.6 g/dl (14.0-18.0); Imm Gran Abs Auto 0.02 X10*3/uL (0.00-0.03); Imm Gran Pct Auto 0.3 % (0.0-0.4); Lymphocytes Absolute Auto 2.1 X10*3/uL (1.2-4.9); Lymphocytes Percent Auto 28.8 % (20-40); Mean Corpuscular HGB Conc 34.5 g/dl (31.0-36.0); Mean Corpuscular Hemoglobin 30.7 pg (27.0-33.0); Mean Corpuscular Volume 88.9 fL (80.0-98.0); Mean Platelet Volume 11.7 fL (9.4-12.4); Monocytes Absolute Auto 1.1 X10*3/uL (0.1-1.2); Monocytes Percent Auto 15.9 % (2-11); Neutrophils Absolute Auto 3.6 x10*3/uL (2.0-8.3); Platelet Count 156 X10*3/uL (160-400); Red Blood Count 4.43 X10*6/uL (4.60-5.80); Red Cell Distribution Width 13.7 % (11.0-16.0); White Blood Count 7.1 X10*3/uL (4.8-10.8)
[2023-12-08 06:25] LABS: Alanine Aminotransferase 38 U/L (0-40); Albumin Level 3.3 g/dL (3.5-5.0); Alkaline Phosphatase 62 U/L (39-117); Anion Gap 16 (12-20); Aspartate Amino Transferase 48 U/L (5-37); Bilirubin Total 0.3 mg/dL (0.0-1.0); Blood Urea Nitrogen 9 mg/dL (9-16); Calcium 8.4 mg/dL (8.4-10.2); Carbon Dioxide 19 mmol/L (22-29); Chloride 108 mmol/L (96-108); Estimated Glomerular Filt Rate > 60; Glucose Random 94 mg/dL (60-115); Magnesium 2.1 mg/dL (1.6-2.6); Phosphorus 3.1 mg/dL (2.7-4.5); Potassium 4.3 mmol/L (3.3-5.1); Sodium 139 mmol/L (135-145); Total Protein 6.7 g/dL (6.5-8.0)
[2023-12-08 07:27] LABS: Glucose, Whole Blood 101 mg/dL (60-115)
[2023-12-08] MEDS: Albumin Human 25 % 100 ML IV ×3 (08:15→19:47)
[2023-12-08] MEDS: Chlorhexidine Gluc Oral Rinse 15 ML MOUTHWASH BUCCAL ×3 (08:16→19:59)
[2023-12-08] MEDS: 0.9 % Sodium Chloride Flush 3 ML SYRINGE IVFLUSH ×2 (08:16→14:17)
[2023-12-08] MEDS: Magnesium Oxide 400 MG TABLET PO (08:16)
[2023-12-08 12:39] LABS: Glucose, Whole Blood 134 mg/dL (60-115)
--- NOTE | 2023-12-08 14:29 | P.PNCC_ITS ---
Subjective Subjective Date of Service: 12/08/23 Critical Care Time (minutes): 35 Comment: Continues to be on ventilator support, has episodes of agitation despite being on propofol and Precedex drip Physical Exam 2 Vital Signs: Vital Signs: Last Vital Signs Temp 99.1 F 12/08/23 14:00 Pulse 58 12/08/23 14:00 Resp 18 12/08/23 14:00 BP 129/74 12/08/23 14:00 Pulse Ox 92 12/08/23 14:00 O2 Del Method Mechanical Ventil ation 12/08/23 14:00 O2 Flow Rate 2 12/07/23 01:00 FiO2 35 12/08/23 14:00 BMI result Body Mass Index 32.8 General: Sedated, on the ventilator Nutritional Appearance: well nourished and overweight Eyes: appearance normal, both eyes and all related structures; Alignment and Position: alignment normal and position normal Neck: No lymphadenopathy, no thyromegaly Resp: bilateral air entry equal, occasional added sounds present Cardio: Regular rate, regular rhythm; Heart sounds: S1 normal heart sound present and S2 normal heart sound present GI: soft, nontender, no guarding, no hepatosplenomegaly : bladder normal to inspection, bladder normal to palpation, no renal angle tenderness Skin: no rashes or lesions noted and elasticity normal Neuro: Sedated, no focal deficits, moves all extremities Objective Data Labs 12/08/23 05:25 12/08/23 05:25 Labs: Laboratory Results - last 24 hr 12/07/23 12/08/23 12/08/23 17:53 00:08 05:23 WBC RBC Hgb Hct MCV MCH MCHC RDW Plt Count MPV Immature Gran % (Auto) Neut % (Auto) Lymph % (Auto) [place] % (Auto) Eos % (Auto) Baso % (Auto) Lymph # (Auto) [place] # (Auto) Eos # (Auto) Baso # (Auto) Abs Immat Gran (auto) Absolute Neuts (auto) Absolute Nucleated RBC Nucleated RBC % (auto) VBG pH 7.48 H VBG pCO2 29 VBG pO2 61 VBG HCO3 22 VBG O2 Saturation 91.0 VBG Base Excess -0.3 Sodium Potassium Chloride Carbon Dioxide Anion Gap BUN Creatinine Estim Creat Clear Calc Estimated GFR POC Glucose 83 76 Random Glucose Calcium Phosphorus Magnesium Total Bilirubin AST ALT Alkaline Phosphatase Total Protein Albumin 12/08/23 12/08/23 12/08/23 05:25 07:24 12:35 WBC 7.1 RBC 4.43 L Hgb 13.6 L Hct 39.4 L MCV 88.9 MCH 30.7 MCHC 34.5 RDW 13.7 Plt Count 156 L MPV 11.7 Immature Gran % (Auto) 0.3 Neut % (Auto) 50.0 Lymph % (Auto) 28.8 [place] % (Auto) 15.9 H Eos % (Auto) 4.6 H Baso % (Auto) 0.4 Lymph # (Auto) 2.1 [place] # (Auto) 1.1 Eos # (Auto) 0.3 Baso # (Auto) 0.0 Abs Immat Gran (auto) 0.02 Absolute Neuts (auto) 3.6 Absolute Nucleated RBC 0.000 Nucleated RBC % (auto) 0.0 VBG pH VBG pCO2 VBG pO2 VBG HCO3 VBG O2 Saturation VBG Base Excess Sodium 139 Potassium 4.3 D Chloride 108 Carbon Dioxide 19 L Anion Gap 16 BUN 9 Creatinine 0.71 Estim Creat Clear Calc 125.0 Estimated GFR > 60 POC Glucose 101 134 H Random Glucose 94 Calcium 8.4 D Phosphorus 3.1 Magnesium 2.1 Total Bilirubin 0.3 AST 48 H ALT 38 Alkaline Phosphatase 62 Total Protein 6.7 Albumin 3.3 L Microbiology Microbiology Results: Microbiology 11/29/23 14:22 Blood - Venous Blood Culture - Final No growth after 5 days. 11/29/23 14:22 Blood - Venous Blood Culture - Final No growth after 5 days. Progress Note: A&P Assessment and plan (1) Aspiration pneumonia: Status: Acute (2) Pulmonary aspiration: Status: Acute (3) Diabetes: Status: Acute (4) Alcohol withdrawal syndrome: Status: Acute (5) Hypertension: Status: Acute Plan 63-year-old male with past medical history of hypertension, hyperlipidemia, diabetes mellitus, alcohol abuse disorder with history of alcohol withdrawal symptoms and alcohol withdrawal seizures once needing intubation for aspiration pneumonia, history of opioid abuse disorder on Suboxone, history of anxiety and depression was admitted to the hospital on 11/29/2023 requesting for detoxification. Despite receiving significant doses of p.r.n. phenobarbital and continuous max dose of Precedex patient was still combative, agitated and was attempting to punch the night staff so was finally intubated and placed on ventilator support. Acute encephalopathy secondary to Alcohol withdrawal syndromes: Patient is a chronic alcohol, has a history of alcohol withdrawal along with alcohol withdrawal seizures Patient was combative despite being on a Precedex drip and receiving as needed phenobarbital to 60 mg so he was intubated and placed on ventilator support Continue propofol drip, Precedex drip and fentanyl Acute respiratory failure: Secondary to poor respiratory efforts On ventilator support Continue PRVC mode of ventilation, FiO2 30%, peep 5 No plans for extubation today and tomorrow as he still is agitated easily and combative. Anxiety/depression: home trazodone, duloxetine and buspirone held after intubation Opioid use disorder: Continue Suboxone Hypertension: On metoprolol 50 mg b.i.d. on PRN labetalol 20 mg IV p.r.n. q.2 hours continue clonidine patch as it might also help him from withdrawal blood pressures better controlled Diabetes mellitus: On sliding scale as needed Prophylaxis: Lovenox Quality Stroke Does the patient have a stroke diagnosis?: No VTE Prior VTE?: No VTE Risk Level:: Medical - moderate - high VTE Device Contraindication: Treatment Not Indicated VTE Drug Contraindication: N/A - Med Ordered
[2023-12-08] MEDS: dexmedeTOMIDidine HCL/NS 400 MCG/100 ML INFUS..BTL 39.45 MCG IVCONT ×4 (16:28→23:52)
[2023-12-08 17:49] LABS: Glucose, Whole Blood 131 mg/dL (60-115)
[2023-12-08] MEDS: Enoxaparin Sodium 40 MG/0.4 ML SYRINGE SUBCUT (18:00)
[2023-12-08] MEDS: fentaNYL citrate/NS 1,000 MCG/100 ML PLAST..BAG 20 MCG IVCONT ×2 (18:57→23:51)
[2023-12-08] MEDS: Atorvastatin Calcium 10 MG TABLET PO (19:59)
[2023-12-09] VITALS (35 sets, daily range): BP systolic 101–169; BP diastolic 43–91; PULSE 52–69; RESP 18–20; TEMP 34.8–37.5; O2SAT 90–94; BMI 32.8
--- NOTE | 2023-12-09 | ECG_ITS ---
Test Reason : QTC Blood Pressure : / mmHG Vent. Rate : 057 BPM Atrial Rate : 057 BPM P-R Int : 190 ms QRS Dur : 100 ms QT Int : 420 ms P-R-T Axes : 006 -21 -35 degrees QTc Int : 408 ms Sinus bradycardia with sinus arrhythmia with occasional Premature ventricular complexes Nonspecific T wave abnormality Abnormal ECG When compared with ECG of 09-DEC-2023 00:55, No significant change was found Referred By: Monisha Garner Electronically Signed By:JANN HAMPTON
[2023-12-09 00:01] LABS: Glucose, Whole Blood 151 mg/dL (60-115)
[2023-12-09] MEDS: propofoL 1,000 MG/100 ML VIAL 31.05 MG IVCONT ×7 (00:16→21:58)
--- NOTE | 2023-12-09 00:48 | ECG_ITS ---
Test Reason : ?rhythm Blood Pressure : / mmHG Vent. Rate : 053 BPM Atrial Rate : 053 BPM P-R Int : 192 ms QRS Dur : 096 ms QT Int : 406 ms P-R-T Axes : -11 -22 -86 degrees QTc Int : 380 ms Sinus bradycardia with occasional Premature ventricular complexes Nonspecific ST and T wave abnormality Abnormal ECG When compared with ECG of 29-NOV-2023 13:45, Premature ventricular complexes are now Present Vent. rate has decreased BY 52 BPM Nonspecific T wave abnormality now evident in Inferior leads Referred By: Kareen Goodman Electronically Signed By:JANN HAMPTON
[2023-12-09] MEDS: dexmedeTOMIDidine HCL/NS 400 MCG/100 ML INFUS..BTL 39.45 MCG IVCONT ×7 (01:56→23:02)
[2023-12-09] MEDS: Piperacillin Sodium/Tazobactam 4.5 GM in 0.9 % Sodium Chloride 100 ML IV ×4 (01:56→19:49)
[2023-12-09] MEDS: Albumin Human 25 % 100 ML IV (02:05)
[2023-12-09] MEDS: fentaNYL citrate/NS 1,000 MCG/100 ML PLAST..BAG 20 MCG IVCONT ×4 (04:14→23:57)
[2023-12-09 05:02] LABS: VBG Base Excess 0.6 mmol/L; VBG HCO3 23 mmol/L (22-26); VBG pCO2 33 mmHg; VBG pH 7.45 (7.32-7.43); VBG pO2 59 mmHg
[2023-12-09 05:04] LABS: Venous Blood Gas Refer to POC result
[2023-12-09 05:05] LABS: MANUAL DIFF FLAG NO
[2023-12-09 05:07] LABS: Basophils Percent Auto 0.5 % (0-2); Eosinophils Absolute Auto 0.4 X10*3/uL (0.0-0.4); Eosinophils Percent Auto 5.2 % (0-4); Hematocrit 39.4 % (42.0-52.0); Hemoglobin 13.9 g/dl (14.0-18.0); Imm Gran Abs Auto 0.03 X10*3/uL (0.00-0.03); Imm Gran Pct Auto 0.4 % (0.0-0.4); Lymphocytes Absolute Auto 1.8 X10*3/uL (1.2-4.9); Lymphocytes Percent Auto 23.1 % (20-40); Mean Corpuscular HGB Conc 35.3 g/dl (31.0-36.0); Mean Corpuscular Hemoglobin 31.1 pg (27.0-33.0); Mean Corpuscular Volume 88.1 fL (80.0-98.0); Mean Platelet Volume 11.2 fL (9.4-12.4); Monocytes Percent Auto 12.4 % (2-11); Neutrophils Absolute Auto 4.5 x10*3/uL (2.0-8.3); Neutrophils Percent Auto 58.4 % (45-73); Platelet Count 169 X10*3/uL (160-400); Red Blood Count 4.47 X10*6/uL (4.60-5.80); Red Cell Distribution Width 13.6 % (11.0-16.0); White Blood Count 7.7 X10*3/uL (4.8-10.8)
[2023-12-09 05:28] LABS: Alanine Aminotransferase 24 U/L (0-40); Albumin Level 4.5 g/dL (3.5-5.0); Alkaline Phosphatase 58 U/L (39-117); Anion Gap 16 (12-20); Aspartate Amino Transferase 18 U/L (5-37); Bilirubin Total 0.3 mg/dL (0.0-1.0); Blood Urea Nitrogen 6 mg/dL (9-16); Calcium 9.5 mg/dL (8.4-10.2); Carbon Dioxide 22 mmol/L (22-29); Chloride 109 mmol/L (96-108); Creatinine Clr Calc Pharmacy 116.8; Estimated Glomerular Filt Rate > 60; Glucose Random 148 mg/dL (60-115); Magnesium 1.9 mg/dL (1.6-2.6); Phosphorus 2.3 mg/dL (2.7-4.5); Potassium 3.6 mmol/L (3.3-5.1); Sodium 143 mmol/L (135-145); Total Protein 7.3 g/dL (6.5-8.0)
[2023-12-09 05:40] LABS: Glucose, Whole Blood 168 mg/dL (60-115)
[2023-12-09] MEDS: Insulin Lispro 100 UNIT/ML 3 ML VIAL SUBCUT (05:41)
[2023-12-09] MEDS: Midazolam HCl/PF 2 MG/2 ML VIAL 4 MG IVPUSH (05:43)
[2023-12-09] MEDS: Potassium Phosphate/NS 15 MMOL/250 ML PLAST..BAG 62.5 MMOL IV (05:44)
[2023-12-09] MEDS: 0.9 % Sodium Chloride Flush 3 ML SYRINGE IVFLUSH ×3 (08:43→23:01)
[2023-12-09] MEDS: Chlorhexidine Gluc Oral Rinse 15 ML MOUTHWASH BUCCAL ×3 (09:34→19:52)
[2023-12-09] MEDS: Magnesium Oxide 400 MG TABLET PO (09:34)
--- NOTE | 2023-12-09 09:59 | P.PNCC_ITS ---
Subjective Subjective Date of Service: 12/09/23 Critical Care Time (minutes): 60 Physical Exam 2 Vital Signs: Vital Signs: Last Vital Signs Temp 99.1 F 12/09/23 09:00 Pulse 55 12/09/23 09:00 Resp 18 12/09/23 09:00 BP 132/82 12/09/23 09:00 Pulse Ox 92 12/09/23 09:00 O2 Del Method Mechanical Ventil ation 12/09/23 09:00 O2 Flow Rate 2 12/07/23 01:00 FiO2 35 12/09/23 09:00 BMI result Body Mass Index 32.8 Const: Other: intubated, sedated General: no acute distress and well developed HEENT: Head: Yes normal to inspection, Yes normocephalic and Yes atraumatic Eyes: General: appearance normal, both eyes and all related structures Neck: Neck: Yes normal visual inspection, Yes full ROM, Yes no meningeal signs, Yes trachea midline and Yes supple Chest: Chest palpation & inspection: normal inspection of the chest Resp: Other: no appreciable rales, rhonchi, wheezing Effort & Inspection: normal respiratory effort Cardio: Rate: regular rate Rhythm: regular rhythm GI: Inspection: Yes normal to inspection, No Abdominal wall edema and No distended Palpation (GI): Soft to palpation, not firm, nontender, no guarding and not rigid : Male General Exam: Yes normal external exam Skin: General skin exam: no rashes or lesions noted Neuro: General: tone normal and no meningeal signs Extrem: General: Yes normal to inspection, Yes full ROM and Yes no clubbing, cyanosis or edema Psych: Other: unable to assess Objective Data Labs 12/09/23 04:42 12/09/23 04:42 Labs: Laboratory Results - last 24 hr 12/08/23 12/08/23 12/08/23 12:35 17:46 23:57 WBC RBC Hgb Hct MCV MCH MCHC RDW Plt Count MPV Immature Gran % (Auto) Neut % (Auto) Lymph % (Auto) [place] % (Auto) Eos % (Auto) Baso % (Auto) Lymph # (Auto) [place] # (Auto) Eos # (Auto) Baso # (Auto) Abs Immat Gran (auto) Absolute Neuts (auto) Absolute Nucleated RBC Nucleated RBC % (auto) VBG pH VBG pCO2 VBG pO2 VBG HCO3 VBG O2 Saturation VBG Base Excess Sodium Potassium Chloride Carbon Dioxide Anion Gap BUN Creatinine Estim Creat Clear Calc Estimated GFR POC Glucose 134 H 131 H 151 H Random Glucose Calcium Phosphorus Magnesium Total Bilirubin AST ALT Alkaline Phosphatase Total Protein Albumin 12/09/23 12/09/23 12/09/23 04:42 04:52 05:36 WBC 7.7 RBC 4.47 L Hgb 13.9 L Hct 39.4 L MCV 88.1 MCH 31.1 MCHC 35.3 RDW 13.6 Plt Count 169 MPV 11.2 Immature Gran % (Auto) 0.4 Neut % (Auto) 58.4 Lymph % (Auto) 23.1 [place] % (Auto) 12.4 H Eos % (Auto) 5.2 H Baso % (Auto) 0.5 Lymph # (Auto) 1.8 [place] # (Auto) 1.0 Eos # (Auto) 0.4 Baso # (Auto) 0.0 Abs Immat Gran (auto) 0.03 Absolute Neuts (auto) 4.5 Absolute Nucleated RBC 0.000 Nucleated RBC % (auto) 0.0 VBG pH 7.45 H VBG pCO2 33 VBG pO2 59 VBG HCO3 23 VBG O2 Saturation 90.0 VBG Base Excess 0.6 Sodium 143 Potassium 3.6 Chloride 109 H Carbon Dioxide 22 Anion Gap 16 BUN 6 L Creatinine 0.76 Estim Creat Clear Calc 116.8 Estimated GFR > 60 POC Glucose 168 H Random Glucose 148 H Calcium 9.5 D Phosphorus 2.3 L Magnesium 1.9 Total Bilirubin 0.3 AST 18 ALT 24 Alkaline Phosphatase 58 Total Protein 7.3 Albumin 4.5 Microbiology Microbiology Results: Microbiology 11/29/23 14:22 Blood - Venous Blood Culture - Final No growth after 5 days. 11/29/23 14:22 Blood - Venous Blood Culture - Final No growth after 5 days. Progress Note: A&P Assessment and plan (1) Alcohol withdrawal syndrome: Status: Acute Plan Patient is a 63 Y M w/ hypertension, hyperlipidemia, diabetes mellitus, alcohol misuse c/b prior withdrawal seizure, prior opioid misuse on subxone, presenting initially on 11/28 requesting detox, admitted floor; hospital course c/b refractory agitation, ultimately intubated 12/06 N: alcohol withdrawal; intubated, sedated w/ propofol, fentanyl, dexmedetomidine gtt; wean as tolerated CV: no acute issues R: no acute issues; intubated 12/06 GI: no acute issues : no acute issues H: no acute issues; chemical DVT prophylaxis ID: no acute issues E: hyperglycemia; insulin sliding scale P: polysubstance misuse; addiction medicine when appropriate Quality Stroke Does the patient have a stroke diagnosis?: No VTE Prior VTE?: No VTE Risk Level:: Medical - moderate - high VTE Device Contraindication: N/A - Device Ordered VTE Drug Contraindication: N/A - Med Ordered
--- NOTE | 2023-12-09 10:01 | MHC.CLN ---
PT IS INTUBATED AND SEDATED PT RECEIVING TF PROMOTE AT 50ML/HR RECOMMEND ADDING 240ML FREE WATER FLUSHES Q 6 HRS AND 30ML PROSOURCE BID WITH CURRENT TF PT TO RECEIVE PROMOTE AT MAX GOAL RATE 50ML/HR WITH 30ML PROSOURCE BID AND 240ML FREE WATER FLUSHES Q 6 HRS TO PROVIDE 1320KCALS (2139KCALS WITH SEDATION; 25KCALS/KG BASED ON CMW), 105G PROTEIN (1.2G/KG), 1967ML TOTAL WATER FROM FORMULA AND FLUSHES (23ML/KG) MONITOR TOLERANCE AND LYTES SEE ALSO FULL CLINICAL NUTRITION ASSESSMENT
[2023-12-09 11:18] LABS: Ammonia 56 umol/L (13-55)
[2023-12-09 12:07] LABS: Glucose, Whole Blood 139 mg/dL (60-115)
[2023-12-09] MEDS: fentaNYL citrate/NS 1,000 MCG/100 ML PLAST..BAG 17.5 MCG IVCONT (14:14)
[2023-12-09] MEDS: dexmedeTOMIDidine HCL/NS 400 MCG/100 ML INFUS..BTL 31.56 MCG IVCONT ×2 (14:53→18:15)
--- NOTE | 2023-12-09 15:19 | MHC.CM.PN ---
Pt intubated in ICU: finalization of d/c plans ongoing: pt may require STR d/t prolonged hospitalization vs original d/c plan of return to home. CM to follow
[2023-12-09] MEDS: propofoL 1,000 MG/100 ML VIAL 24.84 MG IVCONT (16:30)
[2023-12-09 18:15] LABS: Glucose, Whole Blood 131 mg/dL (60-115)
[2023-12-09] MEDS: Enoxaparin Sodium 40 MG/0.4 ML SYRINGE SUBCUT (18:15)
[2023-12-09] MEDS: Famotidine 20 MG TABLET PO (19:52)
[2023-12-09] MEDS: Atorvastatin Calcium 10 MG TABLET PO (19:52)
[2023-12-09 23:52] LABS: Glucose, Whole Blood 121 mg/dL (60-115)
[2023-12-10] VITALS (35 sets, daily range): BP systolic 97–163; BP diastolic 56–91; PULSE 56–120; RESP 13–28; TEMP 34.8–38.3; O2SAT 91–97; BMI 33.8
[2023-12-10] MEDS: Midazolam HCl/PF 2 MG/2 ML VIAL 4 MG IVPUSH ×2 (00:18→12:23)
[2023-12-10] MEDS: propofoL 1,000 MG/100 ML VIAL 31.05 MG IVCONT ×9 (00:52→23:38)
[2023-12-10] MEDS: dexmedeTOMIDidine HCL/NS 400 MCG/100 ML INFUS..BTL 39.45 MCG IVCONT ×4 (01:45→09:01)
[2023-12-10] MEDS: fentaNYL citrate/NS 1,000 MCG/100 ML PLAST..BAG 20 MCG IVCONT ×5 (04:44→23:36)
[2023-12-10 05:23] LABS: VBG Base Excess 0.6 mmol/L; VBG HCO3 21 mmol/L (22-26); VBG pCO2 24 mmHg; VBG pH 7.55 (7.32-7.43); VBG pO2 69 mmHg
[2023-12-10 05:31] LABS: MANUAL DIFF FLAG NO
[2023-12-10 05:37] LABS: Venous Blood Gas Refer to POC result
[2023-12-10 05:41] LABS: Basophils Absolute Auto 0.1 X10*3/uL (0.0-0.2); Basophils Percent Auto 0.6 % (0-2); Eosinophils Absolute Auto 0.4 X10*3/uL (0.0-0.4); Hemoglobin 13.4 g/dl (14.0-18.0); Imm Gran Abs Auto 0.03 X10*3/uL (0.00-0.03); Imm Gran Pct Auto 0.3 % (0.0-0.4); Lymphocytes Absolute Auto 1.7 X10*3/uL (1.2-4.9); Lymphocytes Percent Auto 20.1 % (20-40); Mean Corpuscular HGB Conc 34.4 g/dl (31.0-36.0); Mean Corpuscular Hemoglobin 30.3 pg (27.0-33.0); Mean Corpuscular Volume 88.2 fL (80.0-98.0); Mean Platelet Volume 11.5 fL (9.4-12.4); Monocytes Absolute Auto 0.9 X10*3/uL (0.1-1.2); Monocytes Percent Auto 10.5 % (2-11); Neutrophils Absolute Auto 5.5 x10*3/uL (2.0-8.3); Neutrophils Percent Auto 63.5 % (45-73); Platelet Count 192 X10*3/uL (160-400); Red Blood Count 4.42 X10*6/uL (4.60-5.80); Red Cell Distribution Width 13.8 % (11.0-16.0); White Blood Count 8.6 X10*3/uL (4.8-10.8)
[2023-12-10 05:50] LABS: Albumin Level 3.8 g/dL (3.5-5.0)
[2023-12-10 05:57] LABS: Anion Gap 14 (12-20); Blood Urea Nitrogen 8 mg/dL (9-16); Calcium 9.1 mg/dL (8.4-10.2); Carbon Dioxide 21 mmol/L (22-29); Chloride 108 mmol/L (96-108); Creatinine Clr Calc Pharmacy 130.7; Estimated Glomerular Filt Rate > 60; Glucose Random 174 mg/dL (60-115); Magnesium 1.8 mg/dL (1.6-2.6); Phosphorus 2.5 mg/dL (2.7-4.5); Potassium 3.7 mmol/L (3.3-5.1); Sodium 139 mmol/L (135-145)
[2023-12-10 06:02] LABS: Glucose, Whole Blood 154 mg/dL (60-115)
[2023-12-10] MEDS: Insulin Lispro 100 UNIT/ML 3 ML VIAL SUBCUT ×2 (06:05→23:43)
[2023-12-10] MEDS: 0.9 % Sodium Chloride Flush 3 ML SYRINGE IVFLUSH ×3 (06:56→23:43)
[2023-12-10] MEDS: Magnesium Oxide 400 MG TABLET PO (08:28)
[2023-12-10] MEDS: Chlorhexidine Gluc Oral Rinse 15 ML MOUTHWASH BUCCAL ×3 (08:28→20:00)
[2023-12-10] MEDS: Famotidine 20 MG TABLET PO ×2 (08:28→20:00)
--- NOTE | 2023-12-10 08:39 | P.PNCC_ITS ---
Subjective Subjective Date of Service: 12/10/23 Interval History: no significant overnight events; appreciable agitation, sedation increased Critical Care Time (minutes): 60 Physical Exam 2 Vital Signs: Vital Signs: Last Vital Signs Temp 99.0 F 12/10/23 08:00 Pulse 70 12/10/23 08:00 Resp 20 12/10/23 08:00 BP 117/68 12/10/23 08:00 Pulse Ox 92 12/10/23 08:00 O2 Del Method Mechanical Ventil ation 12/10/23 08:00 O2 Flow Rate 2 12/07/23 01:00 FiO2 40 12/10/23 08:03 BMI result Body Mass Index 33.8 Const: Other: intubated, sedated General: comfortable, no acute distress and well developed HEENT: Head: Yes normal to inspection, Yes normocephalic and Yes atraumatic Eyes: General: appearance normal, both eyes and all related structures Neck: Neck: Yes normal visual inspection, Yes full ROM, Yes no meningeal signs, Yes trachea midline and Yes supple Chest: Chest palpation & inspection: normal inspection of the chest Resp: Other: no appreciable rales, rhonchi, wheezing Effort & Inspection: normal respiratory effort Cardio: Rate: regular rate Rhythm: regular rhythm GI: Inspection: Yes normal to inspection, No Abdominal wall edema and No distended Palpation (GI): Soft to palpation, not firm, nontender, no guarding and not rigid Skin: General skin exam: no rashes or lesions noted Neuro: General: tone normal, moves all extremities and no meningeal signs Extrem: Other: trace pitting edema General: Yes normal to inspection, Yes full ROM and Yes capillary refill normal Psych: Other: intermittent agitation Objective Data Labs 12/10/23 05:13 12/10/23 05:13 Labs: Laboratory Results - last 24 hr 12/09/23 12/09/23 12/09/23 11:05 12:00 18:12 WBC RBC Hgb Hct MCV MCH MCHC RDW Plt Count MPV Immature Gran % (Auto) Neut % (Auto) Lymph % (Auto) [place] % (Auto) Eos % (Auto) Baso % (Auto) Lymph # (Auto) [place] # (Auto) Eos # (Auto) Baso # (Auto) Abs Immat Gran (auto) Absolute Neuts (auto) Absolute Nucleated RBC Nucleated RBC % (auto) VBG pH VBG pCO2 VBG pO2 VBG HCO3 VBG O2 Saturation VBG Base Excess Sodium Potassium Chloride Carbon Dioxide Anion Gap BUN Creatinine Estim Creat Clear Calc Estimated GFR POC Glucose 139 H 131 H Random Glucose Calcium Phosphorus Magnesium Ammonia 56 H Albumin 12/09/23 12/10/23 12/10/23 23:48 05:12 05:13 WBC 8.6 RBC 4.42 L Hgb 13.4 L Hct 39.0 L MCV 88.2 MCH 30.3 MCHC 34.4 RDW 13.8 Plt Count 192 MPV 11.5 Immature Gran % (Auto) 0.3 Neut % (Auto) 63.5 Lymph % (Auto) 20.1 [place] % (Auto) 10.5 Eos % (Auto) 5.0 H Baso % (Auto) 0.6 Lymph # (Auto) 1.7 [place] # (Auto) 0.9 Eos # (Auto) 0.4 Baso # (Auto) 0.1 Abs Immat Gran (auto) 0.03 Absolute Neuts (auto) 5.5 Absolute Nucleated RBC 0.000 Nucleated RBC % (auto) 0.0 VBG pH 7.55 H VBG pCO2 24 VBG pO2 69 VBG HCO3 21 L VBG O2 Saturation 96.0 VBG Base Excess 0.6 Sodium 139 Potassium 3.7 Chloride 108 Carbon Dioxide 21 L Anion Gap 14 BUN 8 L Creatinine 0.69 Estim Creat Clear Calc 130.7 Estimated GFR > 60 POC Glucose 121 H Random Glucose 174 H Calcium 9.1 Phosphorus 2.5 L Magnesium 1.8 Ammonia Albumin 3.8 12/10/23 05:59 WBC RBC Hgb Hct MCV MCH MCHC RDW Plt Count MPV Immature Gran % (Auto) Neut % (Auto) Lymph % (Auto) [place] % (Auto) Eos % (Auto) Baso % (Auto) Lymph # (Auto) [place] # (Auto) Eos # (Auto) Baso # (Auto) Abs Immat Gran (auto) Absolute Neuts (auto) Absolute Nucleated RBC Nucleated RBC % (auto) VBG pH VBG pCO2 VBG pO2 VBG HCO3 VBG O2 Saturation VBG Base Excess Sodium Potassium Chloride Carbon Dioxide Anion Gap BUN Creatinine Estim Creat Clear Calc Estimated GFR POC Glucose 154 H Random Glucose Calcium Phosphorus Magnesium Ammonia Albumin Microbiology Microbiology Results: Microbiology 11/29/23 14:22 Blood - Venous Blood Culture - Final No growth after 5 days. 11/29/23 14:22 Blood - Venous Blood Culture - Final No growth after 5 days. Progress Note: A&P Assessment and plan (1) Alcohol withdrawal syndrome: Status: Acute (2) Encephalopathy: Status: Resolved Plan Patient is a 63 Y M w/ hypertension, hyperlipidemia, diabetes mellitus, alcohol misuse c/b prior withdrawal seizure, prior opioid misuse on subxone, presenting initially on 11/28 requesting detox, admitted floor; hospital course c/b refractory agitation, ultimately intubated 12/06 N: alcohol withdrawal; intubated, sedated w/ propofol, fentanyl, dexmedetomidine gtt; wean as tolerated; CT H 12/08 reassuring; c/f delirium CV: no acute issues R: no acute issues; intubated 12/06; wean as tolerated GI: no acute issues : no acute issues H: no acute issues; chemical DVT prophylaxis ID: no acute issues E: hyperglycemia; insulin sliding scale P: polysubstance misuse; addiction medicine when appropriate Quality Stroke Does the patient have a stroke diagnosis?: No VTE Prior VTE?: No VTE Risk Level:: Medical - moderate - high VTE Device Contraindication: N/A - Device Ordered VTE Drug Contraindication: N/A - Med Ordered
--- NOTE | 2023-12-10 08:43 | ECG_ITS ---
Test Reason : QTC Check Blood Pressure : / mmHG Vent. Rate : 070 BPM Atrial Rate : 070 BPM P-R Int : 184 ms QRS Dur : 092 ms QT Int : 392 ms P-R-T Axes : 002 -25 -67 degrees QTc Int : 423 ms Sinus rhythm with Premature atrial complexes with Aberrant conduction Nonspecific ST and T wave abnormality Abnormal ECG When compared with ECG of 09-DEC-2023 10:32, Premature ventricular complexes are no longer Present Aberrant conduction is now Present Nonspecific T wave abnormality, worse in Lateral leads Referred By: Monisha Garner Electronically Signed By:JANN HAMPTON
[2023-12-10] MEDS: QUEtiapine Fumarate 25 MG TABLET PO (08:59)
[2023-12-10] MEDS: Furosemide 20 MG/2 ML VIAL 10 MG IVPUSH (08:59)
[2023-12-10] MEDS: Finasteride 5 MG TABLET PO (08:59)
[2023-12-10] MEDS: Magnesium Sulfate/D5W 1 GM/100 ML PIGGYBACK IV (09:00)
[2023-12-10] MEDS: Potassium Phosphate/NS 15 MMOL/250 ML PLAST..BAG 62.5 MMOL IV (09:00)
[2023-12-10 11:14] LABS: Glucose, Whole Blood 125 mg/dL (60-115)
[2023-12-10] MEDS: Midazolam HCl/PF 2 MG/2 ML VIAL IVPUSH (12:04)
[2023-12-10] MEDS: dexmedeTOMIDidine HCL/NS 400 MCG/100 ML INFUS..BTL 26.75 MCG IVCONT (12:30)
--- NOTE | 2023-12-10 14:53 | MHC.CM.PN ---
Pt remains intubated: periods of agitation noted: d/c plan finalization ongoing: pt from home but may need STR
[2023-12-10] MEDS: dexmedeTOMIDidine HCL/NS 400 MCG/100 ML INFUS..BTL 40.13 MCG IVCONT ×5 (15:41→23:38)
[2023-12-10 17:08] LABS: Glucose, Whole Blood 143 mg/dL (60-115)
[2023-12-10] MEDS: Enoxaparin Sodium 40 MG/0.4 ML SYRINGE SUBCUT (17:35)
[2023-12-10] MEDS: Atorvastatin Calcium 10 MG TABLET PO (20:00)
[2023-12-10] MEDS: QUEtiapine Fumarate 50 MG TABLET PO (20:00)
[2023-12-10 23:33] LABS: Glucose, Whole Blood 157 mg/dL (60-115)
[2023-12-11] VITALS (34 sets, daily range): BP systolic 91–180; BP diastolic 49–97; PULSE 53–128; RESP 15–27; TEMP 35–38.5; O2SAT 90–97; BMI 37.2
[2023-12-11] MEDS: dexmedeTOMIDidine HCL/NS 400 MCG/100 ML INFUS..BTL 40.13 MCG IVCONT ×4 (01:56→09:01)
[2023-12-11] MEDS: propofoL 1,000 MG/100 ML VIAL 31.05 MG IVCONT ×4 (02:20→11:10)
[2023-12-11] MEDS: fentaNYL citrate/NS 1,000 MCG/100 ML PLAST..BAG 20 MCG IVCONT (04:37)
[2023-12-11 05:51] LABS: VBG Base Excess 0.6 mmol/L; VBG HCO3 21 mmol/L (22-26); VBG pCO2 25 mmHg; VBG pH 7.54 (7.32-7.43); VBG pO2 62 mmHg
[2023-12-11 05:54] LABS: MANUAL DIFF FLAG NO
[2023-12-11 05:57] LABS: Basophils Absolute Auto 0.1 X10*3/uL (0.0-0.2); Basophils Percent Auto 0.6 % (0-2); Eosinophils Absolute Auto 0.3 X10*3/uL (0.0-0.4); Eosinophils Percent Auto 2.9 % (0-4); Hematocrit 37.7 % (42.0-52.0); Hemoglobin 13.2 g/dl (14.0-18.0); Imm Gran Abs Auto 0.03 X10*3/uL (0.00-0.03); Imm Gran Pct Auto 0.3 % (0.0-0.4); Lymphocytes Absolute Auto 1.6 X10*3/uL (1.2-4.9); Lymphocytes Percent Auto 15.1 % (20-40); Mean Corpuscular Hemoglobin 31.1 pg (27.0-33.0); Mean Corpuscular Volume 88.7 fL (80.0-98.0); Mean Platelet Volume 11.4 fL (9.4-12.4); Monocytes Absolute Auto 1.1 X10*3/uL (0.1-1.2); Neutrophils Absolute Auto 7.3 x10*3/uL (2.0-8.3); Neutrophils Percent Auto 70.1 % (45-73); Platelet Count 208 X10*3/uL (160-400); Red Blood Count 4.25 X10*6/uL (4.60-5.80); Red Cell Distribution Width 14.3 % (11.0-16.0); White Blood Count 10.4 X10*3/uL (4.8-10.8)
[2023-12-11 06:06] LABS: Glucose, Whole Blood 149 mg/dL (60-115)
[2023-12-11 06:33] LABS: Anion Gap 12 (12-20); Blood Urea Nitrogen 10 mg/dL (9-16); Carbon Dioxide 21 mmol/L (22-29); Chloride 107 mmol/L (96-108); Creatinine Clr Calc Pharmacy 135.1; Estimated Glomerular Filt Rate > 60; Glucose Random 165 mg/dL (60-115); Magnesium 1.9 mg/dL (1.6-2.6); Phosphorus 3.2 mg/dL (2.7-4.5); Potassium 3.9 mmol/L (3.3-5.1); Sodium 136 mmol/L (135-145)
[2023-12-11] MEDS: 0.9 % Sodium Chloride Flush 3 ML SYRINGE IVFLUSH ×3 (07:39→23:50)
[2023-12-11] MEDS: Chlorhexidine Gluc Oral Rinse 15 ML MOUTHWASH BUCCAL (07:39)
[2023-12-11] MEDS: Finasteride 5 MG TABLET PO (07:47)
[2023-12-11] MEDS: Famotidine 20 MG TABLET PO (07:47)
[2023-12-11] MEDS: Magnesium Oxide 400 MG TABLET PO (07:47)
[2023-12-11] MEDS: QUEtiapine Fumarate 50 MG TABLET PO (07:47)
--- NOTE | 2023-12-11 08:13 | P.PNCC_ITS ---
Subjective Subjective Date of Service: 12/11/23 Interval History: no significant overnight events; continued agitation Critical Care Time (minutes): 60 Physical Exam 2 Vital Signs: Vital Signs: Last Vital Signs Temp 99.0 F 12/11/23 07:00 Pulse 56 12/11/23 07:00 Resp 25 H 12/11/23 07:00 BP 118/67 12/11/23 07:00 Pulse Ox 93 12/11/23 07:31 O2 Del Method Mechanical Ventil ation 12/11/23 07:00 O2 Flow Rate 2 12/07/23 01:00 FiO2 45 12/11/23 07:33 BMI result Body Mass Index 37.2 Const: Other: intubated, sedated General: no acute distress and well developed HEENT: Head: Yes normal to inspection, Yes normocephalic and Yes atraumatic Eyes: General: appearance normal, both eyes and all related structures Neck: Neck: Yes normal visual inspection, Yes full ROM, Yes no meningeal signs, Yes trachea midline and Yes supple Chest: Chest palpation & inspection: normal inspection of the chest Resp: Other: no appreciable rales, rhonchi, wheezing Effort & Inspection: normal respiratory effort Cardio: Rate: regular rate Rhythm: regular rhythm GI: Inspection: Yes normal to inspection, No Abdominal wall edema and No distended Palpation (GI): Soft to palpation, not firm, nontender, no guarding and not rigid Skin: General skin exam: no rashes or lesions noted Neuro: General: tone normal, moves all extremities and no meningeal signs Extrem: General: Yes normal to inspection, Yes full ROM, Yes capillary refill normal and Yes no clubbing, cyanosis or edema Psych: Other: unable to assess Objective Data Labs 12/11/23 05:46 12/11/23 05:46 Labs: Laboratory Results - last 24 hr 12/10/23 12/10/23 12/10/23 11:11 17:02 23:26 WBC RBC Hgb Hct MCV MCH MCHC RDW Plt Count MPV Immature Gran % (Auto) Neut % (Auto) Lymph % (Auto) [place] % (Auto) Eos % (Auto) Baso % (Auto) Lymph # (Auto) [place] # (Auto) Eos # (Auto) Baso # (Auto) Abs Immat Gran (auto) Absolute Neuts (auto) Absolute Nucleated RBC Nucleated RBC % (auto) VBG pH VBG pCO2 VBG pO2 VBG HCO3 VBG O2 Saturation VBG Base Excess Sodium Potassium Chloride Carbon Dioxide Anion Gap BUN Creatinine Estim Creat Clear Calc Estimated GFR POC Glucose 125 H 143 H 157 H Random Glucose Calcium Phosphorus Magnesium 12/11/23 12/11/23 12/11/23 05:41 05:46 06:01 WBC 10.4 RBC 4.25 L Hgb 13.2 L Hct 37.7 L MCV 88.7 MCH 31.1 MCHC 35.0 RDW 14.3 Plt Count 208 MPV 11.4 Immature Gran % (Auto) 0.3 Neut % (Auto) 70.1 Lymph % (Auto) 15.1 L [place] % (Auto) 11.0 Eos % (Auto) 2.9 Baso % (Auto) 0.6 Lymph # (Auto) 1.6 [place] # (Auto) 1.1 Eos # (Auto) 0.3 Baso # (Auto) 0.1 Abs Immat Gran (auto) 0.03 Absolute Neuts (auto) 7.3 Absolute Nucleated RBC 0.000 Nucleated RBC % (auto) 0.0 VBG pH 7.54 H VBG pCO2 25 VBG pO2 62 VBG HCO3 21 L VBG O2 Saturation 92.0 VBG Base Excess 0.6 Sodium 136 Potassium 3.9 Chloride 107 Carbon Dioxide 21 L Anion Gap 12 BUN 10 Creatinine 0.70 Estim Creat Clear Calc 135.1 Estimated GFR > 60 POC Glucose 149 H Random Glucose 165 H Calcium 9.0 Phosphorus 3.2 Magnesium 1.9 Microbiology Microbiology Results: Microbiology 11/29/23 14:22 Blood - Venous Blood Culture - Final No growth after 5 days. 11/29/23 14:22 Blood - Venous Blood Culture - Final No growth after 5 days. Progress Note: A&P Assessment and plan (1) Delirium: Status: Acute (2) Pulmonary aspiration: Status: Acute (3) Alcohol withdrawal syndrome: Status: Acute Plan Patient is a 63 Y M w/ hypertension, hyperlipidemia, diabetes mellitus, alcohol misuse c/b prior withdrawal seizure, prior opioid misuse on subxone, presenting initially on 11/28 requesting detox, admitted floor; hospital course c/b refractory agitation, ultimately intubated 12/06 N: alcohol withdrawal; intubated, sedated w/ propofol, fentanyl, dexmedetomidine gtt; wean as tolerated; CT H 12/08 reassuring; c/f delirium; started on quetiapine CV: no acute issues R: no acute issues; intubated 12/06; wean as tolerated GI: no acute issues : no acute issues H: no acute issues; chemical DVT prophylaxis ID: no acute issues E: hyperglycemia; insulin sliding scale P: polysubstance misuse; addiction medicine when appropriate Quality Stroke Does the patient have a stroke diagnosis?: No VTE Prior VTE?: No VTE Risk Level:: Medical - moderate - high VTE Device Contraindication: N/A - Device Ordered VTE Drug Contraindication: N/A - Med Ordered
--- NOTE | 2023-12-11 08:43 | ECG_ITS ---
Test Reason : qtc check Blood Pressure : / mmHG Vent. Rate : 051 BPM Atrial Rate : 051 BPM P-R Int : 196 ms QRS Dur : 092 ms QT Int : 434 ms P-R-T Axes : 010 -15 -66 degrees QTc Int : 400 ms Sinus bradycardia with occasional Premature ventricular complexes Nonspecific ST and T wave abnormality Abnormal ECG When compared with ECG of 10-DEC-2023 08:59, Premature ventricular complexes are now Present Aberrant conduction is no longer Present Referred By: Monisha Garner Electronically Signed By:JANN HAMPTON
[2023-12-11] MEDS: fentaNYL citrate/NS 1,000 MCG/100 ML PLAST..BAG 10 MCG IVCONT (09:33)
--- NOTE | 2023-12-11 09:45 | MHC.CLN ---
F/U PT IS INTUBATED AND SEDATED PT RECEIVING PROMOTE AT MAX GOAL RATE 50ML/HR WITH 30ML PROSOURCE BID AND 240ML FREE WATER FLUSHES Q 6 HRS PROVIDES 1320KCALS (2139KCALS WITH SEDATION; 25KCALS/KG BASED ON CMW), 105G PROTEIN (1.2G/KG), 1967ML TOTAL WATER FROM FORMULA AND FLUSHES (23ML/KG) MONITOR TOLERANCE AND LYTES
[2023-12-11 11:02] LABS: Venous Blood Gas Refer to POC result
[2023-12-11 11:23] LABS: Glucose, Whole Blood 153 mg/dL (60-115)
[2023-12-11] MEDS: Insulin Lispro 100 UNIT/ML 3 ML VIAL SUBCUT (12:31)
[2023-12-11] MEDS: Acetaminophen 1,000 MG/100 ML PIGGYBACK 400 MG IV ×2 (14:56→19:58)
[2023-12-11] MEDS: dexmedeTOMIDidine HCL/NS 400 MCG/100 ML INFUS..BTL 26.75 MCG IVCONT ×2 (15:16→18:08)
[2023-12-11] MEDS: Enoxaparin Sodium 40 MG/0.4 ML SYRINGE SUBCUT (17:52)
[2023-12-11] MEDS: Midazolam HCl/PF 2 MG/2 ML VIAL 4 MG IVPUSH (17:52)
[2023-12-11 18:29] LABS: Glucose, Whole Blood 112 mg/dL (60-115)
[2023-12-11] MEDS: dexmedeTOMIDidine HCL/NS 400 MCG/100 ML INFUS..BTL 32.1 MCG IVCONT (21:26)
[2023-12-11] MEDS: fentaNYL citrate/PF 100 MCG/2 ML VIAL 25 MCG IVPUSH (22:56)
[2023-12-11 23:29] LABS: Glucose, Whole Blood 152 mg/dL (60-115)
[2023-12-11] MEDS: dexmedeTOMIDidine HCL/NS 400 MCG/100 ML INFUS..BTL 37.45 MCG IVCONT (23:44)
[2023-12-12] VITALS (28 sets, daily range): BP systolic 119–164; BP diastolic 62–100; PULSE 82–115; RESP 10–22; TEMP 36.6–37.3; O2SAT 91–98; BMI 35.9
[2023-12-12] MEDS: dexmedeTOMIDidine HCL/NS 400 MCG/100 ML INFUS..BTL 37.45 MCG IVCONT (02:35)
[2023-12-12] MEDS: dexmedeTOMIDidine HCL/NS 400 MCG/100 ML INFUS..BTL 32.1 MCG IVCONT (05:10)
[2023-12-12 06:01] LABS: VBG Base Excess 1.7 mmol/L; VBG HCO3 22 mmol/L (22-26); VBG pCO2 25 mmHg; VBG pH 7.55 (7.32-7.43); VBG pO2 80 mmHg
[2023-12-12 06:12] LABS: MANUAL DIFF FLAG NO
[2023-12-12 06:31] LABS: Anion Gap 14 (12-20); Blood Urea Nitrogen 10 mg/dL (9-16); Calcium 9.8 mg/dL (8.4-10.2); Carbon Dioxide 22 mmol/L (22-29); Chloride 108 mmol/L (96-108); Creatinine Clr Calc Pharmacy 139.1; Estimated Glomerular Filt Rate > 60; Glucose Random 139 mg/dL (60-115); Phosphorus 2.5 mg/dL (2.7-4.5); Sodium 140 mmol/L (135-145)
[2023-12-12 07:00] LABS: Basophils Absolute Auto 0.1 X10*3/uL (0.0-0.2); Basophils Percent Auto 0.5 % (0-2); Eosinophils Absolute Auto 0.1 X10*3/uL (0.0-0.4); Eosinophils Percent Auto 0.7 % (0-4); Hematocrit 38.4 % (42.0-52.0); Hemoglobin 13.5 g/dl (14.0-18.0); Imm Gran Abs Auto 0.08 X10*3/uL (0.00-0.03); Imm Gran Pct Auto 0.5 % (0.0-0.4); Lymphocytes Absolute Auto 1.9 X10*3/uL (1.2-4.9); Mean Corpuscular HGB Conc 35.2 g/dl (31.0-36.0); Mean Corpuscular Hemoglobin 31.1 pg (27.0-33.0); Mean Corpuscular Volume 88.5 fL (80.0-98.0); Mean Platelet Volume 11.4 fL (9.4-12.4); Monocytes Absolute Auto 1.3 X10*3/uL (0.1-1.2); Neutrophils Absolute Auto 12.5 x10*3/uL (2.0-8.3); Neutrophils Percent Auto 78.3 % (45-73); Platelet Count 265 X10*3/uL (160-400); Red Blood Count 4.34 X10*6/uL (4.60-5.80); Red Cell Distribution Width 14.1 % (11.0-16.0); White Blood Count 15.9 X10*3/uL (4.8-10.8)
[2023-12-12 07:06] LABS: Venous Blood Gas Refer to POC result
--- NOTE | 2023-12-12 07:49 | P.PNCC_ITS ---
Subjective Subjective Date of Service: 12/12/23 Interval History: extubated 12/10 PM; no significant overnight event Critical Care Time (minutes): 60 Physical Exam 2 Vital Signs: Vital Signs: Last Vital Signs Temp 98.2 F 12/12/23 04:00 Pulse 84 12/12/23 06:00 Resp 16 12/12/23 06:44 BP 148/84 H 12/12/23 06:00 Pulse Ox 98 12/12/23 06:00 O2 Del Method High Flow Nasal C annula 12/12/23 06:00 O2 Flow Rate 45 12/12/23 06:00 FiO2 60 12/12/23 06:00 BMI result Body Mass Index 35.9 Const: General: cooperative, healthy appearing, comfortable, no acute distress, well developed, alert, awake and Physically active O rientation/consciousness: oriented to person and oriented to place HEENT: Head: Yes normal to inspection, Yes normocephalic and Yes atraumatic Eyes: General: appearance normal, both eyes and all related structures Neck: Neck: Yes normal visual inspection, Yes full ROM, Yes no meningeal signs, Yes trachea midline and Yes supple Chest: Chest palpation & inspection: normal inspection of the chest Resp: Other: some appreciable rhonchi; no appreciable rales, wheezing Effort & Inspection: normal respiratory effort Cardio: Rate: regular rate Rhythm: regular rhythm GI: Inspection: Yes normal to inspection, No Abdominal wall edema and No distended Palpation (GI): Soft to palpation, Firmness to palpation present (GI), Tenderness to palpation present (GI), Guarding due to palpation present (GI) and Rigid due to palpation Skin: General skin exam: no rashes or lesions noted Neuro: General: oriented to person, oriented to place, tone normal, moves all extremities, no meningeal signs and no focal motor deficits Extrem: Other: trace pitting edema to bilateral lower extremities General: Yes normal to inspection, Yes full ROM and Yes capillary refill normal Psych: Appearance: grossly normal Objective Data Labs 12/12/23 05:54 12/12/23 05:54 Labs: Laboratory Results - last 24 hr 12/11/23 12/11/23 12/11/23 11:20 18:25 23:25 WBC RBC Hgb Hct MCV MCH MCHC RDW Plt Count MPV Immature Gran % (Auto) Neut % (Auto) Lymph % (Auto) [place] % (Auto) Eos % (Auto) Baso % (Auto) Lymph # (Auto) [place] # (Auto) Eos # (Auto) Baso # (Auto) Abs Immat Gran (auto) Absolute Neuts (auto) Absolute Nucleated RBC Nucleated RBC % (auto) VBG pH VBG pCO2 VBG pO2 VBG HCO3 VBG O2 Saturation VBG Base Excess Sodium Potassium Chloride Carbon Dioxide Anion Gap BUN Creatinine Estim Creat Clear Calc Estimated GFR POC Glucose 153 H 112 152 H Random Glucose Calcium Phosphorus Magnesium 12/12/23 12/12/23 05:51 05:54 WBC 15.9 H RBC 4.34 L Hgb 13.5 L Hct 38.4 L MCV 88.5 MCH 31.1 MCHC 35.2 RDW 14.1 Plt Count 265 D MPV 11.4 Immature Gran % (Auto) 0.5 H Neut % (Auto) 78.3 H Lymph % (Auto) 12.0 L [place] % (Auto) 8.0 Eos % (Auto) 0.7 Baso % (Auto) 0.5 Lymph # (Auto) 1.9 [place] # (Auto) 1.3 H Eos # (Auto) 0.1 Baso # (Auto) 0.1 Abs Immat Gran (auto) 0.08 H Absolute Neuts (auto) 12.5 H Absolute Nucleated RBC 0.000 Nucleated RBC % (auto) 0.0 VBG pH 7.55 H VBG pCO2 25 VBG pO2 80 VBG HCO3 22 VBG O2 Saturation 98.0 VBG Base Excess 1.7 Sodium 140 Potassium 4.0 Chloride 108 Carbon Dioxide 22 Anion Gap 14 BUN 10 Creatinine 0.68 Estim Creat Clear Calc 139.1 Estimated GFR > 60 POC Glucose Random Glucose 139 H Calcium 9.8 D Phosphorus 2.5 L Magnesium 2.0 Microbiology Microbiology Results: Microbiology 11/29/23 14:22 Blood - Venous Blood Culture - Final No growth after 5 days. 11/29/23 14:22 Blood - Venous Blood Culture - Final No growth after 5 days. Progress Note: A&P Assessment and plan (1) Delirium: Status: Acute (2) Pulmonary aspiration: Status: Acute (3) Alcohol withdrawal syndrome: Status: Acute Plan Patient is a 63 Y M w/ hypertension, hyperlipidemia, diabetes mellitus, alcohol misuse c/b prior withdrawal seizure, prior opioid misuse on suboxone, presenting initially on 11/28 requesting detox, admitted floor; hospital course c/b refractory agitation, ultimately intubated 12/06 N: delirium, improving; dexmetomidine gtt; wean as tolerated CV: no acute issues R: no acute issues; intubated 12/06, extubated 12/10; acute hypoxia, likely d/t aspiration; empiric treatment for aspiration pneumonia GI: NPO; advance diet as tolerated : no acute issues H: no acute issues; chemical DVT prophylaxis ID: empiric treatment for aspiration pneumonia w/ zosyn; to follow-up sputum cultures E: hyperglycemia; insulin sliding scale P: polysubstance misuse; addiction medicine Quality Stroke Does the patient have a stroke diagnosis?: No VTE Prior VTE?: No VTE Risk Level:: Medical - moderate - high VTE Device Contraindication: N/A - Device Ordered VTE Drug Contraindication: N/A - Med Ordered
[2023-12-12] MEDS: dexmedeTOMIDidine HCL/NS 400 MCG/100 ML INFUS..BTL 26.75 MCG IVCONT (08:18)
[2023-12-12] MEDS: Potassium Phosphate/NS 15 MMOL/250 ML PLAST..BAG 62.5 MMOL IV (08:20)
[2023-12-12] MEDS: Furosemide 20 MG/2 ML VIAL 10 MG IVPUSH (08:20)
[2023-12-12] MEDS: Magnesium Oxide 400 MG TABLET PO (08:21)
[2023-12-12] MEDS: Piperacillin Sodium/Tazobactam 3.375 GM in 0.9 % Sodium Chloride 50 ML IV ×3 (08:21→19:26)
[2023-12-12] MEDS: 0.9 % Sodium Chloride Flush 3 ML SYRINGE IVFLUSH ×2 (08:21→20:06)
[2023-12-12] MEDS: Finasteride 5 MG TABLET PO (08:21)
[2023-12-12] MEDS: Famotidine 20 MG TABLET PO ×2 (08:21→20:06)
[2023-12-12] MEDS: QUEtiapine Fumarate 50 MG TABLET PO ×2 (08:21→20:06)
[2023-12-12] MEDS: Buprenorphine/Naloxone 8/2 mg FILM 2 FILM BUCCAL (08:21)
--- NOTE | 2023-12-12 08:43 | ECG_ITS ---
Test Reason : qtc check Blood Pressure : / mmHG Vent. Rate : 090 BPM Atrial Rate : 090 BPM P-R Int : 182 ms QRS Dur : 096 ms QT Int : 360 ms P-R-T Axes : 055 -26 053 degrees QTc Int : 440 ms Normal sinus rhythm Nonspecific ST abnormality Abnormal ECG When compared with ECG of 11-DEC-2023 09:50, Premature ventricular complexes are no longer Present Vent. rate has increased BY 39 BPM Nonspecific T wave abnormality no longer evident in Inferior leads Nonspecific T wave abnormality, improved in Lateral leads Referred By: Monisha Garner Electronically Signed By:JANN HAMPTON
--- NOTE | 2023-12-12 10:31 | MHC.SL.SWA ---
Speech Pathologist Impression: Risk of Aspiration Due to: Hx of Recent Extubation Dysphasia Diet Status: s/p extubation 12/11/23, ? aspiration PNA. All aspects of swallow WFL. Liquid Consistency and Strategies for Safe Swallow: Liquid Intake Recommendation: Thin Liquid Intake Strategies: Unrestricted Solid Food Consistency: Dietary Recommendations: Regular Additional Modifications to Solid Foods: Due to generalized weakness (s/p extubation), Patient will require full assistance/direct supervision with meal. Cut food into manageable, individual bites. Oral Medication Intake: Whole with Liquid Please contact the pharmacy regarding appropriate crushable or liquid drug formulations that are available whenever modified delivery is recommended. Compensatory Strategies and Precautions to be Taken for Safe Swallow: Sitting Upright (90 deg) Liquids from Cup Liquids from Straw Small Bites and Sips Alternate Liquids/Solids Supervision While Eating and Drinking for Safe Swallow: Total Assistance (1:1) Foods to Avoid: Too large pieces of food. Swallowing Recommended Treatments: Compens. Strategy Educat. Recommendation for Speech: Inpatient Speech Therapy Comment: Patient presents with swallow WFL, however is currently evidencing generalized weakness and will need full assistance/supervision at all meals. Patient noted to have intermittent cough at baseline, not evident however in response to swallowing any consistency (no evidence of aspiration on liquid and food trials today). Recommend UPGRADE diet to REGULAR with THIN liquids, pills whole with liquid. Recommend 1 f/u from [employer] to assure tolerance of diet. , RN notified of recommendation in person, RD by secure text. Frequency/Duration: Date Range for Service Req: Timeline to reassess: Associate Of Science In Nursing Clinican/Clinical Fellow: No Supervisory Statement: I have reviewed and agree with the student/clinical fellow's documentation: N/A Speech Language Pathologist: Abby Berman M.A., CCC-[employer]
[2023-12-12] MEDS: DULoxetine HCl 60 MG CAPSULE.DR PO (11:00)
[2023-12-12 11:17] LABS: Glucose, Whole Blood 171 mg/dL (60-115)
[2023-12-12] MEDS: Insulin Lispro 100 UNIT/ML 3 ML VIAL SUBCUT ×2 (11:54→20:20)
[2023-12-12] MEDS: Acetaminophen 325 MG TABLET 650 MG PO ×2 (14:08→23:07)
[2023-12-12] MEDS: ondansetron HCL 4 MG/2 ML VIAL IVPUSH (14:18)
--- NOTE | 2023-12-12 14:58 | MHC.CM.PN ---
Pt extubated and on high flow O2. Broad STR referrals made as it seems likely pt will be very deconditioned and require closer medical supervision. CM to follow
[2023-12-12] MEDS: Buprenorphine HCL 8 MG TAB.SUBL SUBLINGUAL (15:17)
[2023-12-12 16:50] LABS: Glucose, Whole Blood 146 mg/dL (60-115)
[2023-12-12] MEDS: Tamsulosin HCL 0.4 MG CAPSULE 0.8 MG PO (17:45)
[2023-12-12] MEDS: Enoxaparin Sodium 40 MG/0.4 ML SYRINGE SUBCUT (17:45)
[2023-12-12] MEDS: Atorvastatin Calcium 10 MG TABLET PO (20:05)
[2023-12-12 20:14] LABS: Glucose, Whole Blood 168 mg/dL (60-115)
[2023-12-12] MEDS: Gabapentin 300 MG CAPSULE PO (20:42)
[2023-12-13] VITALS (17 sets, daily range): BP systolic 111–171; BP diastolic 52–104; PULSE 91–115; RESP 11–20; TEMP 36–37.1; O2SAT 90–98; BMI 36.6
[2023-12-13] MEDS: Piperacillin Sodium/Tazobactam 3.375 GM in 0.9 % Sodium Chloride 50 ML IV ×4 (01:33→20:23)
[2023-12-13] MEDS: Ibuprofen 600 MG TABLET PO (02:09)
[2023-12-13 06:41] LABS: MANUAL DIFF FLAG NO
[2023-12-13 06:46] LABS: Basophils Absolute Auto 0.1 X10*3/uL (0.0-0.2); Basophils Percent Auto 0.6 % (0-2); Eosinophils Absolute Auto 0.3 X10*3/uL (0.0-0.4); Eosinophils Percent Auto 2.4 % (0-4); Hematocrit 41.5 % (42.0-52.0); Hemoglobin 14.2 g/dl (14.0-18.0); Imm Gran Abs Auto 0.03 X10*3/uL (0.00-0.03); Imm Gran Pct Auto 0.2 % (0.0-0.4); Lymphocytes Absolute Auto 2.5 X10*3/uL (1.2-4.9); Lymphocytes Percent Auto 19.7 % (20-40); Mean Corpuscular HGB Conc 34.2 g/dl (31.0-36.0); Mean Corpuscular Hemoglobin 30.9 pg (27.0-33.0); Mean Corpuscular Volume 90.2 fL (80.0-98.0); Mean Platelet Volume 10.8 fL (9.4-12.4); Monocytes Absolute Auto 1.4 X10*3/uL (0.1-1.2); Monocytes Percent Auto 10.9 % (2-11); Neutrophils Absolute Auto 8.3 x10*3/uL (2.0-8.3); Neutrophils Percent Auto 66.2 % (45-73); Platelet Count 311 X10*3/uL (160-400); Red Cell Distribution Width 14.3 % (11.0-16.0); White Blood Count 12.6 X10*3/uL (4.8-10.8)
[2023-12-13 06:57] LABS: Anion Gap 16 (12-20); Blood Urea Nitrogen 14 mg/dL (9-16); Calcium 10.3 mg/dL (8.4-10.2); Carbon Dioxide 23 mmol/L (22-29); Chloride 109 mmol/L (96-108); Creatinine Clr Calc Pharmacy 121.8; Estimated Glomerular Filt Rate > 60; Glucose Random 146 mg/dL (60-115); Magnesium 2.2 mg/dL (1.6-2.6); Phosphorus 2.6 mg/dL (2.7-4.5); Sodium 144 mmol/L (135-145)
[2023-12-13 07:17] LABS: Glucose, Whole Blood 139 mg/dL (60-115)
[2023-12-13] MEDS: QUEtiapine Fumarate 50 MG TABLET PO (08:36)
[2023-12-13] MEDS: Buprenorphine/Naloxone 8/2 mg FILM 2 FILM BUCCAL (08:36)
[2023-12-13] MEDS: Finasteride 5 MG TABLET PO (08:36)
[2023-12-13] MEDS: Magnesium Oxide 400 MG TABLET PO (08:36)
[2023-12-13] MEDS: Famotidine 20 MG TABLET PO ×2 (08:36→20:29)
[2023-12-13] MEDS: DULoxetine HCl 60 MG CAPSULE.DR PO (08:36)
--- NOTE | 2023-12-13 08:40 | P.PNCC_ITS ---
Subjective Subjective Date of Service: 12/13/23 Interval History: no significant overnight events Critical Care Time (minutes): 0 Physical Exam 2 Vital Signs: Vital Signs: Last Vital Signs Temp 98.3 F 12/13/23 08:17 Pulse 102 H 12/13/23 08:17 Resp 13 12/13/23 08:17 BP 163/94 H 12/13/23 08:17 Pulse Ox 92 12/13/23 08:17 O2 Del Method Nasal Cannula 12/13/23 08:17 O2 Flow Rate 2 12/13/23 08:17 FiO2 30 12/12/23 12:36 BMI result Body Mass Index 36.6 Const: General: cooperative, healthy appearing, comfortable, no acute distress, well developed, alert, awake and Physically active O rientation/consciousness: patient oriented x3 HEENT: Head: Yes normal to inspection, Yes normocephalic and Yes atraumatic Eyes: General: appearance normal, both eyes and all related structures Neck: Neck: Yes normal visual inspection, Yes full ROM, Yes no meningeal signs, Yes trachea midline and Yes supple Chest: Chest palpation & inspection: normal inspection of the chest Resp: Other: some appreciable rhonchi; no appreciable rales, wheezing Effort & Inspection: normal respiratory effort Cardio: Rate: tachycardic Rhythm: regular rhythm GI: Inspection: Yes normal to inspection, Yes Abdominal wall edema and Yes distended Palpation (GI): Soft to palpation, not firm, nontender, no guarding and not rigid Skin: General skin exam: no rashes or lesions noted Neuro: General: patient oriented x3, tone normal, moves all extremities, no meningeal signs and no focal motor deficits Extrem: General: Yes normal to inspection, Yes full ROM, Yes capillary refill normal and Yes no clubbing, cyanosis or edema Psych: Appearance: grossly normal Objective Data Labs 12/13/23 06:37 12/13/23 06:37 Labs: Laboratory Results - last 24 hr 12/12/23 12/12/23 12/12/23 11:08 16:44 20:09 WBC RBC Hgb Hct MCV MCH MCHC RDW Plt Count MPV Immature Gran % (Auto) Neut % (Auto) Lymph % (Auto) [place] % (Auto) Eos % (Auto) Baso % (Auto) Lymph # (Auto) [place] # (Auto) Eos # (Auto) Baso # (Auto) Abs Immat Gran (auto) Absolute Neuts (auto) Absolute Nucleated RBC Nucleated RBC % (auto) Sodium Potassium Chloride Carbon Dioxide Anion Gap BUN Creatinine Estim Creat Clear Calc Estimated GFR POC Glucose 171 H 146 H 168 H Random Glucose Calcium Phosphorus Magnesium 12/13/23 12/13/23 06:37 07:11 WBC 12.6 H RBC 4.60 Hgb 14.2 Hct 41.5 L MCV 90.2 MCH 30.9 MCHC 34.2 RDW 14.3 Plt Count 311 MPV 10.8 Immature Gran % (Auto) 0.2 Neut % (Auto) 66.2 Lymph % (Auto) 19.7 L [place] % (Auto) 10.9 Eos % (Auto) 2.4 Baso % (Auto) 0.6 Lymph # (Auto) 2.5 [place] # (Auto) 1.4 H Eos # (Auto) 0.3 Baso # (Auto) 0.1 Abs Immat Gran (auto) 0.03 Absolute Neuts (auto) 8.3 Absolute Nucleated RBC 0.000 Nucleated RBC % (auto) 0.0 Sodium 144 Potassium 4.0 Chloride 109 H Carbon Dioxide 23 Anion Gap 16 BUN 14 Creatinine 0.77 Estim Creat Clear Calc 121.8 Estimated GFR > 60 POC Glucose 139 H Random Glucose 146 H Calcium 10.3 H Phosphorus 2.6 L Magnesium 2.2 Microbiology Microbiology Results: Microbiology 12/12/23 08:40 Sputum - Expectorated Gram Stain - Final 11/29/23 14:22 Blood - Venous Blood Culture - Final No growth after 5 days. 11/29/23 14:22 Blood - Venous Blood Culture - Final No growth after 5 days. Progress Note: A&P Assessment and plan (1) Delirium: Status: Acute (2) Alcohol withdrawal syndrome: Status: Acute Plan Patient is a 63 Y M w/ hypertension, hyperlipidemia, diabetes mellitus, alcohol misuse c/b prior withdrawal seizure, prior opioid misuse on suboxone, presenting initially on 11/28 requesting detox, admitted floor; hospital course c/b refractory agitation, ultimately intubated 12/06 N: delirium, improved CV: no acute issues R: no acute issues; intubated 12/06, extubated 12/10; acute hypoxia, likely d/t aspiration, improved; empiric treatment for aspiration pneumonia GI: regular diet : no acute issues H: no acute issues; chemical DVT prophylaxis ID: empiric treatment for aspiration pneumonia w/ zosyn; to follow-up sputum cultures E: hyperglycemia; insulin sliding scale P: polysubstance misuse; addiction medicine Quality Stroke Does the patient have a stroke diagnosis?: No VTE Prior VTE?: No VTE Risk Level:: Medical - moderate - high VTE Device Contraindication: N/A - Device Ordered VTE Drug Contraindication: N/A - Med Ordered
[2023-12-13] MEDS: Furosemide 20 MG/2 ML VIAL 10 MG IVPUSH (08:43)
--- NOTE | 2023-12-13 08:43 | ECG_ITS ---
Test Reason : qtc check Blood Pressure : / mmHG Vent. Rate : 093 BPM Atrial Rate : 093 BPM P-R Int : 176 ms QRS Dur : 090 ms QT Int : 338 ms P-R-T Axes : 051 -39 058 degrees QTc Int : 420 ms Normal sinus rhythm Left axis deviation Abnormal ECG When compared with ECG of 12-DEC-2023 07:15, No significant change was found Referred By: Monisha Garner Electronically Signed By:JANN HAMPTON
[2023-12-13] MEDS: Gabapentin 300 MG CAPSULE PO ×2 (08:55→20:29)
--- NOTE | 2023-12-13 10:15 | MHC.CLN ---
F/U PT EXTUBATED DIET ADVANCED TO 2000DM 50% PO INTAKE RD TO FOLLOW WEEKLY
[2023-12-13 11:22] LABS: Glucose, Whole Blood 168 mg/dL (60-115)
--- NOTE | 2023-12-13 11:57 | MHC.SL.SWA ---
Speech Pathologist Impression: WFL Risk of Aspiration Due to: Hx of Recent Extubation Dysphasia Diet Status: No Change Liquid Consistency and Strategies for Safe Swallow: Liquid Intake Recommendation: Thin Liquid Intake Strategies: Small Sips Solid Food Consistency: Dietary Recommendations: Regular Additional Modifications to Solid Foods: Patient will need assistance with set up of tray, ensuring all foods/utensils are within reach and accessible Oral Medication Intake: Whole with Liquid Please contact the pharmacy regarding appropriate crushable or liquid drug formulations that are available whenever modified delivery is recommended. Compensatory Strategies and Precautions to be Taken for Safe Swallow: Sitting Upright (90 deg) Small Bites and Sips Alternate Liquids/Solids Rate of Ingestion Change Supervision While Eating and Drinking for Safe Swallow: Total Supervision (1:1) Foods to Avoid: Too large pieces of food. Swallowing Recommended Treatments: Compens. Strategy Educat. Recommendation for Speech: D/C Training Developer Clinican/Clinical Fellow: No Supervisory Statement: I have reviewed and agree with the student/clinical fellow's documentation: N/A Speech Language Pathologist: Kiera Cohen M.A., CCC-STERILE PROCESSING MANAGER
[2023-12-13] MEDS: Insulin Lispro 100 UNIT/ML 3 ML VIAL SUBCUT ×3 (12:41→20:36)
--- NOTE | 2023-12-13 14:04 | PM.EVENT ---
Event Note Date of Service: 12/13/23 Event Note: hospitalist accept note 63yo M with HTN, HLD, DM2, BPH, AUD with hx withdrawal sz, OUD on Suboxone, hx aspiration PNA with hx emergent intubation, mood disorder presenting with AHRF due to aspiration PNA in setting of acute EtOH intoxication admitted 11/29/23 to hospitalist service; hospital course complicated by agitation and ultimately was intubated 12/07/23; extubated 12/10 currently on 4L NC continue Zosyn continue Suboxone- got extra dose yesterday for withdrawal completed phenobarbital taper down grade to [facility] PT eval wean O2 as tolerated Time Spent With Patient Time: Total time managing care of this patient today ____ minutes.
--- NOTE | 2023-12-13 14:59 | MHC.CM.PN ---
pATIENT TRANSFERED FROM icu TO imc TODAY. dp str VIA bls.
--- NOTE | 2023-12-13 15:38 | HO.ADDICTPRO ---
Subjective Subjective Date of Service: 12/12/23 Reason For Visit: Hypoxia, ?Aspiration pneumonia, alcohol withdrawal Interim History: Patient seen in ICU after being extubated the day before. Restarted on suboxone in the morning at home dose of 16mg daily consult placed by archivist military history with concern for ongoing withdrawal as patient remained diaphoretic after dose administration --advised provider to administer an additional 8mg suboxone for total of 24mg Seen by this comic writer and aerospace assembler shortly after dose administration and patient appeared comfortable with no withdrawal sx evident or reported he expressed interest in discussing resources for alcohol use disorder and plan is for aerospace assembler to return once patient is on medical floor Review of Systems Constitutional: Reports as per HPI Mental Status Exam Mental Status Exam Patient Appearance: Appropriate Level of Consciousness: Awake and Appropriate Patient Behavior: Appropriate Mood Description: Calm Diagnostics Vital Signs (24Hr): Vital Signs - 24 hr 12/12/23 16:00 12/12/23 16:54 12/12/23 18:00 Temperature 97.8 F Pulse Rate 105 H 113 H 101 H Respiratory Rate 14 19 12 Blood Pressure 157/90 H 157/90 H 163/99 H Pulse Oximetry 94 93 95 Oxygen Delivery Method Nasal Cannula Nasal Cannula Nasal Cannula Oxygen Flow Rate 2 2 2 12/12/23 19:00 12/12/23 19:54 12/12/23 21:00 Temperature 98.6 F Pulse Rate 100 98 113 H Respiratory Rate 11 L 12 16 Blood Pressure 159/91 H 148/94 H 160/100 H Pulse Oximetry 95 96 Oxygen Delivery Method Nasal Cannula Nasal Cannula Nasal Cannula Oxygen Flow Rate 2 2 2 12/12/23 22:00 12/12/23 23:00 12/13/23 00:00 Temperature 98.1 F Pulse Rate 101 H 112 H 107 H Respiratory Rate 21 H 10 L 12 Blood Pressure 151/87 H 130/71 152/86 H Pulse Oximetry 94 95 92 Oxygen Delivery Method Nasal Cannula Nasal Cannula Nasal Cannula Oxygen Flow Rate 2 2 2 12/13/23 01:00 12/13/23 01:55 12/13/23 03:00 Temperature Pulse Rate 102 H 103 H 104 H Respiratory Rate 12 12 Blood Pressure 131/58 L 131/58 L 154/104 H Pulse Oximetry 94 94 94 Oxygen Delivery Method Nasal Cannula Nasal Cannula Nasal Cannula Oxygen Flow Rate 2 2 2 12/13/23 03:20 12/13/23 03:21 12/13/23 04:00 Temperature 98.2 F 97.9 F Pulse Rate 98 102 H Respiratory Rate 16 11 L Blood Pressure 111/52 L 116/53 L Pulse Oximetry 94 95 Oxygen Delivery Method Nasal Cannula Nasal Cannula Oxygen Flow Rate 2 2 12/13/23 04:58 12/13/23 06:00 12/13/23 07:00 Temperature Pulse Rate 107 H 109 H 100 Respiratory Rate 12 15 11 L Blood Pressure 150/81 H 146/95 H 150/94 H Pulse Oximetry 95 95 93 Oxygen Delivery Method Nasal Cannula Nasal Cannula Nasal Cannula Oxygen Flow Rate 2 2 2 12/13/23 08:17 12/13/23 12:00 12/13/23 14:24 Temperature 98.3 F 98.7 F Pulse Rate 102 H 115 H 112 H Respiratory Rate 13 15 20 Blood Pressure 163/94 H 153/99 H 171/94 H Pulse Oximetry 92 90 L 95 Oxygen Delivery Method Nasal Cannula Nasal Cannula Nasal Cannula Oxygen Flow Rate 2 4 5 12/13/23 15:23 Temperature 97.1 F Pulse Rate 103 H Respiratory Rate 18 Blood Pressure 150/94 H Pulse Oximetry 95 Oxygen Delivery Method Nasal Cannula Oxygen Flow Rate 5 BMI result Body Mass Index 36.6 Labs 12/13/23 06:37 12/13/23 06:37 Labs: Laboratory Results - last 48 hr 12/11/23 12/11/23 12/12/23 18:25 23:25 05:51 WBC RBC Hgb Hct MCV MCH MCHC RDW Plt Count MPV Immature Gran % (Auto) Neut % (Auto) Lymph % (Auto) [place] % (Auto) Eos % (Auto) Baso % (Auto) Lymph # (Auto) [place] # (Auto) Eos # (Auto) Baso # (Auto) Abs Immat Gran (auto) Absolute Neuts (auto) Absolute Nucleated RBC Nucleated RBC % (auto) VBG pH 7.55 H VBG pCO2 25 VBG pO2 80 VBG HCO3 22 VBG O2 Saturation 98.0 VBG Base Excess 1.7 Sodium Potassium Chloride Carbon Dioxide Anion Gap BUN Creatinine Estim Creat Clear Calc Estimated GFR POC Glucose 112 152 H Random Glucose Calcium Phosphorus Magnesium 12/12/23 12/12/23 12/12/23 05:54 11:08 16:44 WBC 15.9 H RBC 4.34 L Hgb 13.5 L Hct 38.4 L MCV 88.5 MCH 31.1 MCHC 35.2 RDW 14.1 Plt Count 265 D MPV 11.4 Immature Gran % (Auto) 0.5 H Neut % (Auto) 78.3 H Lymph % (Auto) 12.0 L [place] % (Auto) 8.0 Eos % (Auto) 0.7 Baso % (Auto) 0.5 Lymph # (Auto) 1.9 [place] # (Auto) 1.3 H Eos # (Auto) 0.1 Baso # (Auto) 0.1 Abs Immat Gran (auto) 0.08 H Absolute Neuts (auto) 12.5 H Absolute Nucleated RBC 0.000 Nucleated RBC % (auto) 0.0 VBG pH VBG pCO2 VBG pO2 VBG HCO3 VBG O2 Saturation VBG Base Excess Sodium 140 Potassium 4.0 Chloride 108 Carbon Dioxide 22 Anion Gap 14 BUN 10 Creatinine 0.68 Estim Creat Clear Calc 139.1 Estimated GFR > 60 POC Glucose 171 H 146 H Random Glucose 139 H Calcium 9.8 D Phosphorus 2.5 L Magnesium 2.0 12/12/23 12/13/23 12/13/23 20:09 06:37 07:11 WBC 12.6 H RBC 4.60 Hgb 14.2 Hct 41.5 L MCV 90.2 MCH 30.9 MCHC 34.2 RDW 14.3 Plt Count 311 MPV 10.8 Immature Gran % (Auto) 0.2 Neut % (Auto) 66.2 Lymph % (Auto) 19.7 L [place] % (Auto) 10.9 Eos % (Auto) 2.4 Baso % (Auto) 0.6 Lymph # (Auto) 2.5 [place] # (Auto) 1.4 H Eos # (Auto) 0.3 Baso # (Auto) 0.1 Abs Immat Gran (auto) 0.03 Absolute Neuts (auto) 8.3 Absolute Nucleated RBC 0.000 Nucleated RBC % (auto) 0.0 VBG pH VBG pCO2 VBG pO2 VBG HCO3 VBG O2 Saturation VBG Base Excess Sodium 144 Potassium 4.0 Chloride 109 H Carbon Dioxide 23 Anion Gap 16 BUN 14 Creatinine 0.77 Estim Creat Clear Calc 121.8 Estimated GFR > 60 POC Glucose 168 H 139 H Random Glucose 146 H Calcium 10.3 H Phosphorus 2.6 L Magnesium 2.2 12/13/23 11:16 WBC RBC Hgb Hct MCV MCH MCHC RDW Plt Count MPV Immature Gran % (Auto) Neut % (Auto) Lymph % (Auto) [place] % (Auto) Eos % (Auto) Baso % (Auto) Lymph # (Auto) [place] # (Auto) Eos # (Auto) Baso # (Auto) Abs Immat Gran (auto) Absolute Neuts (auto) Absolute Nucleated RBC Nucleated RBC % (auto) VBG pH VBG pCO2 VBG pO2 VBG HCO3 VBG O2 Saturation VBG Base Excess Sodium Potassium Chloride Carbon Dioxide Anion Gap BUN Creatinine Estim Creat Clear Calc Estimated GFR POC Glucose 168 H Random Glucose Calcium Phosphorus Magnesium Imaging Radiology Impressions: ITS Impressions Chest X-Ray 11/29/23 13:35 IMPRESSION: No acute cardiopulmonary findings. Electronically signed by: Mindi Brown MD 11/29/2023 03:17 PM EDT RP Chest X-Ray 12/07/23 02:30 IMPRESSION: 1. Endotracheal tube with its tip approximately 3.1 cm proximal to the adrienne. Enterogastric tube in appropriate position. 2. No acute cardiopulmonary findings. Electronically signed by: Keyon Lainez MD 12/07/2023 07:08 AM EDT RP Head CT 12/09/23 12:39 IMPRESSION: 1. Unchanged Normal CT scan of the brain. 2. No intracranial hemorrhage or skull fracture is seen. 3. No evidence of space occupying lesion could be found. 4. The current plain CT scan of the brain shows no diagnostic evidence of acute cerebral infarction. 5. Interval development of small right maxillary sinus air-fluid level suggestive of sinusitis. Interval mild posterior left maxillary sinus mucosal thickening. Electronically signed by: Godfrey Cleaning MD 12/09/2023 03:29 PM EDT RP Medications Medications Current Medications Acetaminophen (Acetaminophen 325 Mg Tablet) 650 mg PO Q6H PRN PRN Reason: Pain, Mild (Pain Scale 1-3), fever or headache Last Admin: 12/12/23 23:07 Dose: 650 mg Atorvastatin Calcium (Atorvastatin Calcium 10 Mg Tablet) 10 mg PO BEDTIME [facility] Last Admin: 12/12/23 20:05 Dose: 10 mg Buprenorphine/Naloxone (Buprenorphine/Naloxone 8/2 Mg Film) 2 film BUCCAL DAILY [facility] Last Admin: 12/13/23 08:36 Dose: 2 film Duloxetine HCl (Duloxetine Hcl 60 Mg Capsule.Dr) 60 mg PO DAILY [facility] Last Admin: 12/13/23 08:36 Dose: 60 mg Enoxaparin Sodium (Enoxaparin Sodium 40 Mg/0.4 Ml Syringe) 40 mg SUBCUT Q24H [facility] Last Admin: 12/12/23 17:45 Dose: 40 mg Famotidine (Famotidine 20 Mg Tablet) 20 mg PO BID [facility] Last Admin: 12/13/23 08:36 Dose: 20 mg Finasteride (Finasteride 5 Mg Tablet) 5 mg PO DAILY [facility] Last Admin: 12/13/23 08:36 Dose: 5 mg Furosemide (Furosemide 20 Mg/2 Ml Vial) 10 mg IVPUSH DAILY [facility]; Protocol Last Admin: 12/13/23 08:43 Dose: 10 mg Gabapentin (Gabapentin 300 Mg Capsule) 300 mg PO TID PRN PRN Reason: Pain, Mild (Pain Scale 1-3) Last Admin: 12/13/23 08:55 Dose: 300 mg Glucose (Glucose Gel 15 Gm Gel..Gram.) 15 gm PO Q15M PRN; Protocol PRN Reason: per Hypoglycemia Standing Ord. Dextrose (D10) 250 mls @ 750 mls/hr IV Q15M PRN; Protocol PRN Reason: per Hypoglycemia Standing Ord. Piperacillin Sod/Tazobactam (Sod 3.375 gm/ Sodium Chloride) 50 mls @ 100 mls/hr IV Q6H [facility] Last Infusion: 12/13/23 14:59 Dose: Infused Insulin Human Lispro (Insulin Lispro 100 Unit/Ml 3 Ml Vial) 0 unit SUBCUT QIDACHS [facility]; Protocol Last Admin: 12/13/23 12:41 Dose: 2 unit Magnesium Oxide (Magnesium Oxide 400 Mg Tablet) 400 mg PO DAILY [facility] Last Admin: 12/13/23 08:36 Dose: 400 mg Midazolam HCl (Midazolam Hcl/Pf 2 Mg/2 Ml Vial) 2 mg IVPUSH Q2H PRN PRN Reason: Agitation Nicotine Polacrilex (Nicotine Polacrilex 2 Mg Gum) 2 mg BUCCAL Q2H PRN PRN Reason: Nicotine Cravings Last Admin: 12/03/23 09:37 Dose: 2 mg Ondansetron HCl (Ondansetron Hcl 4 Mg/2 Ml Vial) 4 mg IVPUSH Q4H PRN PRN Reason: Nausea and Vomiting Pharmacy Consult (Consult Rx Etoh Phenob Im/Po) 1 each MISCELLANE ONCE PRN; Protocol PRN Reason: Consult order Phenobarbital Sodium (Phenobarbital Sodium 130 Mg/Ml Vial) 260 mg IM Q3H PRN PRN Reason: Alcohol Withdrawal Last Admin: 12/07/23 01:45 Dose: 260 mg Quetiapine Fumarate (Quetiapine Fumarate 25 Mg Tablet) 25 mg PO BID [facility] Last Admin: 12/13/23 08:44 Dose: Not Given Sodium Chloride (0.9 % Sodium Chloride Flush 3 Ml Syringe) 3 ml IVFLUSH QSHIFT [facility] Last Admin: 12/13/23 07:38 Dose: Not Given Tamsulosin HCl (Tamsulosin Hcl 0.4 Mg Capsule) 0.8 mg PO DAILY@1730 [facility] Last Admin: 12/12/23 17:45 Dose: 0.8 mg Allergies Allergies Allergy/AdvReac Type Severity Reaction Status Date / Time No Known Allergies Allergy Verified 11/29/23 13:30 Assessment & Plan Assessment & Plan (1) Alcohol use disorder, severe, dependence: Status: Acute Code(s): F10.20 - Alcohol dependence, uncomplicated Assessment and Plan: withdrawal resolved recovery support RN to follow up with resources Total time managing care of this patient today __15__ minutes.
[2023-12-13 16:15] LABS: Glucose, Whole Blood 182 mg/dL (60-115)
[2023-12-13] MEDS: Tamsulosin HCL 0.4 MG CAPSULE 0.8 MG PO (17:00)
[2023-12-13] MEDS: Enoxaparin Sodium 40 MG/0.4 ML SYRINGE SUBCUT (17:00)
[2023-12-13] MEDS: 0.9 % Sodium Chloride Flush 3 ML SYRINGE IVFLUSH ×2 (17:02→20:29)
[2023-12-13] MEDS: Acetaminophen 325 MG TABLET 650 MG PO (17:05)
[2023-12-13] MEDS: Atorvastatin Calcium 10 MG TABLET PO (20:29)
[2023-12-13] MEDS: QUEtiapine Fumarate 25 MG TABLET PO (20:29)
[2023-12-13] MEDS: traZODone HCL 100 MG TABLET 200 MG PO (20:29)
[2023-12-13 20:31] LABS: Glucose, Whole Blood 192 mg/dL (60-115)
[2023-12-14] MEDS: Acetaminophen 325 MG TABLET 650 MG PO ×2 (00:57→19:52)
[2023-12-14] MEDS: Piperacillin Sodium/Tazobactam 3.375 GM in 0.9 % Sodium Chloride 50 ML IV ×4 (03:14→19:54)
[2023-12-14 04:00] VITALS: BP 156/93; PULSE 116; RESP 20; TEMP 36.3; O2SAT 96
[2023-12-14 07:29] LABS: Glucose, Whole Blood 148 mg/dL (60-115)
[2023-12-14 07:34] VITALS: BP 143/93; PULSE 107; RESP 16; TEMP 36.2; O2SAT 94
[2023-12-14] MEDS: Folic Acid 1 MG TABLET PO (08:03)
[2023-12-14] MEDS: QUEtiapine Fumarate 25 MG TABLET PO ×2 (08:03→19:51)
[2023-12-14] MEDS: Thiamine HCL 100 MG TABLET PO (08:03)
[2023-12-14] MEDS: DULoxetine HCl 60 MG CAPSULE.DR PO (08:03)
[2023-12-14] MEDS: Magnesium Oxide 400 MG TABLET PO (08:03)
[2023-12-14] MEDS: Famotidine 20 MG TABLET PO ×2 (08:03→19:51)
[2023-12-14] MEDS: Furosemide 20 MG/2 ML VIAL 10 MG IVPUSH (08:04)
[2023-12-14] MEDS: Finasteride 5 MG TABLET PO (08:08)
[2023-12-14] MEDS: Gabapentin 300 MG CAPSULE PO (08:12)
[2023-12-14] MEDS: 0.9 % Sodium Chloride Flush 3 ML SYRINGE IVFLUSH ×3 (08:18→19:52)
[2023-12-14] MEDS: Buprenorphine/Naloxone 8/2 mg FILM 2 FILM BUCCAL (09:16)
--- NOTE | 2023-12-14 11:00 | P.PNIM_ITS ---
Subjective Subjective Date of Service: 12/14/23 Interval History: minimal cough on 2L O2 feeling anxious; usually on 1200 mg of gabapentin tid prn but currently on 300 mg Review of Systems Review of Systems: Yes all other systems are reviewed and are negative Physical Exam 2 Vital Signs: Vital Signs: Last Vital Signs Temp 97.1 F 12/14/23 07:34 Pulse 107 H 12/14/23 07:34 Resp 16 12/14/23 07:34 BP 143/93 H 12/14/23 07:34 Pulse Ox 94 12/14/23 07:34 O2 Del Method Nasal Cannula 12/14/23 07:34 O2 Flow Rate 2.5 12/14/23 07:34 FiO2 30 12/12/23 12:36 BMI result Body Mass Index 36.6 Gen: in no acute distress HEENT: sclera anicteric, moist mucus membranes Neck: supple Lungs: diminished Heart: regular rate and rhythm, no murmurs Abd: soft, non-tender, non-distended Ext: no edema Skin: warm/well-perfused Neuro: alert and oriented x3, no focal findings Psych: appropriate affect Objective Data Active Medications Acetaminophen (Acetaminophen 325 Mg Tablet) 650 mg PO Q6H PRN PRN Reason: Pain, Mild (Pain Scale 1-3), fever or headache Last Admin: 12/14/23 00:57 Dose: 650 mg Documented By: GABI Atorvastatin Calcium (Atorvastatin Calcium 10 Mg Tablet) 10 mg PO BEDTIME [facility] Last Admin: 12/13/23 20:29 Dose: 10 mg Documented By: GABI Buprenorphine/Naloxone (Buprenorphine/Naloxone 8/2 Mg Film) 2 film BUCCAL DAILY [facility] Last Admin: 12/14/23 09:16 Dose: 2 film Documented By: CHRISSY Duloxetine HCl (Duloxetine Hcl 60 Mg Capsule.Dr) 60 mg PO DAILY [facility] Last Admin: 12/14/23 08:03 Dose: 60 mg Documented By: CHRISSY Enoxaparin Sodium (Enoxaparin Sodium 40 Mg/0.4 Ml Syringe) 40 mg SUBCUT Q24H [facility] Last Admin: 12/13/23 17:00 Dose: 40 mg Documented By: JAZLYN Famotidine (Famotidine 20 Mg Tablet) 20 mg PO BID [facility] Last Admin: 12/14/23 08:03 Dose: 20 mg Documented By: CHRISSY Finasteride (Finasteride 5 Mg Tablet) 5 mg PO DAILY [facility] Last Admin: 12/14/23 08:08 Dose: 5 mg Documented By: CHRISSY Folic Acid (Folic Acid 1 Mg Tablet) 1 mg PO DAILY [facility] Last Admin: 12/14/23 08:03 Dose: 1 mg Documented By: CHRISSY Furosemide (Furosemide 20 Mg/2 Ml Vial) 10 mg IVPUSH DAILY [facility]; Protocol Last Admin: 12/14/23 08:04 Dose: 10 mg Documented By: CHRISSY Gabapentin (Gabapentin 300 Mg Capsule) 600 mg PO TID PRN PRN Reason: Anxiety Glucose (Glucose Gel 15 Gm Gel..Gram.) 15 gm PO Q15M PRN; Protocol PRN Reason: per Hypoglycemia Standing Ord. Dextrose (D10) 250 mls @ 750 mls/hr IV Q15M PRN; Protocol PRN Reason: per Hypoglycemia Standing Ord. Piperacillin Sod/Tazobactam (Sod 3.375 gm/ Sodium Chloride) 50 mls @ 100 mls/hr IV Q6H [facility] Last Infusion: 12/14/23 09:12 Dose: Infused Documented By: PAULETTE Insulin Human Lispro (Insulin Lispro 100 Unit/Ml 3 Ml Vial) 0 unit SUBCUT QIDACHS [facility]; Protocol Last Admin: 12/14/23 07:53 Dose: Not Given Documented By: PAULETTE Non-Admin Reason: No Insulin Coverage Magnesium Oxide (Magnesium Oxide 400 Mg Tablet) 400 mg PO DAILY [facility] Last Admin: 12/14/23 08:03 Dose: 400 mg Documented By: CHRISSY Midazolam HCl (Midazolam Hcl/Pf 2 Mg/2 Ml Vial) 2 mg IVPUSH Q2H PRN PRN Reason: Agitation Nicotine Polacrilex (Nicotine Polacrilex 2 Mg Gum) 2 mg BUCCAL Q2H PRN PRN Reason: Nicotine Cravings Last Admin: 12/03/23 09:37 Dose: 2 mg Documented By: ZACH Ondansetron HCl (Ondansetron Hcl 4 Mg/2 Ml Vial) 4 mg IVPUSH Q4H PRN PRN Reason: Nausea and Vomiting Pharmacy Consult (Consult Rx Etoh Phenob Im/Po) 1 each MISCELLANE ONCE PRN; Protocol PRN Reason: Consult order Phenobarbital Sodium (Phenobarbital Sodium 130 Mg/Ml Vial) 260 mg IM Q3H PRN PRN Reason: Alcohol Withdrawal Last Admin: 12/07/23 01:45 Dose: 260 mg Documented By: CINDY Quetiapine Fumarate (Quetiapine Fumarate 25 Mg Tablet) 25 mg PO BID [facility] Last Admin: 12/14/23 08:03 Dose: 25 mg Documented By: CHRISSY Sodium Chloride (0.9 % Sodium Chloride Flush 3 Ml Syringe) 3 ml IVFLUSH QSHIFT [facility] Last Admin: 12/14/23 08:18 Dose: 3 ml Documented By: CHRISSY Tamsulosin HCl (Tamsulosin Hcl 0.4 Mg Capsule) 0.8 mg PO DAILY@1730 [facility] Last Admin: 12/13/23 17:00 Dose: 0.8 mg Documented By: JAZLYN Thiamine HCl (Thiamine Hcl 100 Mg Tablet) 100 mg PO DAILY [facility] Last Admin: 12/14/23 08:03 Dose: 100 mg Documented By: CHRISSY Trazodone HCl (Trazodone Hcl 100 Mg Tablet) 200 mg PO BEDTIME PRN PRN Reason: Insomnia Last Admin: 12/13/23 20:29 Dose: 200 mg Documented By: LAFLAMC Labs 12/13/23 06:37 12/13/23 06:37 Labs: Laboratory Results - last 24 hr 12/13/23 12/13/23 12/13/23 11:16 16:02 20:26 POC Glucose 168 H 182 H 192 H 12/14/23 07:23 POC Glucose 148 H Microbiology Microbiology Results: Microbiology 12/12/23 08:40 Gram Stain - Final Sputum - Expectorated Sputum Culture - Preliminary Assessment and Plan (1) Alcohol use disorder, severe, dependence: Status: Acute (2) Alcohol withdrawal syndrome: Status: Acute Plan 63yo M with HTN, HLD, DM2, BPH, AUD with hx withdrawal sz, OUD on Suboxone, hx aspiration PNA with hx emergent intubation, mood disorder presenting with AHRF due to aspiration PNA in setting of acute EtOH intoxication admitted 11/29/23 to hospitalist service; hospital course complicated by agitation and ultimately was intubated 12/07/23; extubated 12/10 and stepped down to telemetry unit 12/12 aspiration PNA - continue piperacillin-tazobactam; use PCT to help de-escalate therapy acute hypoxic respiratory failure - supplemental O2, wean as tolerated toxic-metabolic encephalopathy - due to EtOH withdrawal; continue quetiapine HLD - atorvastatin OUD - Suboxone, Addiction Medicine consult, got extra dose 2d ago for withdrawal [had been on fentanyl while ventilated] AUD with withdrawal - completed phenobarbital taper - Addiction Medicine consult neuropathy - continue duloxetine, increase gabapentin prostatism - finasteride, tamsulosin VTE prophylaxis - enoxaparin dispo - PT eval In my clinical judgment, the patient requires continued inpatient hospitalization for the following reasons: post-ICU care, hypoxia, dispo planning Total time managing care of this patient today: 45 minutes. Quality Stroke Does the patient have a stroke diagnosis?: No VTE Prior VTE?: No VTE Risk Level:: Medical - moderate - high VTE Device Contraindication: N/A - Device Ordered VTE Drug Contraindication: N/A - Med Ordered
--- NOTE | 2023-12-14 11:06 | PM.EVENT ---
Event Note Date of Service: 12/14/23 Time Spent With Patient Time: Total time managing care of this patient today ____ minutes.
[2023-12-14 11:18] LABS: Glucose, Whole Blood 155 mg/dL (60-115)
[2023-12-14 11:34] VITALS: BP 160/99; PULSE 113; RESP 20; TEMP 37.1; O2SAT 94
[2023-12-14] MEDS: Insulin Lispro 100 UNIT/ML 3 ML VIAL SUBCUT ×2 (11:55→17:16)
[2023-12-14 12:04] VITALS: PULSE 131; O2SAT 93
[2023-12-14 16:00] VITALS: BP 174/97; PULSE 117; RESP 18; TEMP 36; O2SAT 92
[2023-12-14 16:35] LABS: Glucose, Whole Blood 193 mg/dL (60-115)
[2023-12-14] MEDS: Enoxaparin Sodium 40 MG/0.4 ML SYRINGE SUBCUT (17:15)
[2023-12-14] MEDS: Tamsulosin HCL 0.4 MG CAPSULE 0.8 MG PO (17:15)
[2023-12-14] MEDS: Gabapentin 300 MG CAPSULE 600 MG PO ×2 (17:17→19:51)
[2023-12-14] MEDS: Nicotine Polacrilex 2 MG GUM BUCCAL (17:22)
[2023-12-14] MEDS: Calcium Carbonate 750 MG TAB.CHEW PO (18:19)
[2023-12-14] MEDS: Atorvastatin Calcium 10 MG TABLET PO (19:51)
[2023-12-14] MEDS: traZODone HCL 100 MG TABLET 200 MG PO (19:51)
[2023-12-14 20:00] VITALS: BP 169/100; PULSE 98; RESP 16; TEMP 36.2; O2SAT 96
[2023-12-14 20:04] LABS: Glucose, Whole Blood 142 mg/dL (60-115)
[2023-12-15] VITALS: BP 159/80; PULSE 122; RESP 20; TEMP 36.2; O2SAT 94
[2023-12-15] MEDS: Piperacillin Sodium/Tazobactam 3.375 GM in 0.9 % Sodium Chloride 50 ML IV ×4 (02:40→20:25)
[2023-12-15 03:33] VITALS: BP 137/80; PULSE 103; RESP 20; TEMP 36.1; O2SAT 96
[2023-12-15 05:24] VITALS: BMI 32.7
[2023-12-15 07:14] LABS: Basophils Absolute Auto 0.1 X10*3/uL (0.0-0.2); Basophils Percent Auto 1.3 % (0-2); Eosinophils Absolute Auto 0.5 X10*3/uL (0.0-0.4); Eosinophils Percent Auto 4.8 % (0-4); Hematocrit 40.6 % (42.0-52.0); Hemoglobin 13.8 g/dl (14.0-18.0); Imm Gran Abs Auto 0.04 X10*3/uL (0.00-0.03); Imm Gran Pct Auto 0.4 % (0.0-0.4); Lymphocytes Absolute Auto 2.7 X10*3/uL (1.2-4.9); Lymphocytes Percent Auto 28.5 % (20-40); Mean Corpuscular Hemoglobin 30.7 pg (27.0-33.0); Mean Corpuscular Volume 90.2 fL (80.0-98.0); Mean Platelet Volume 10.6 fL (9.4-12.4); Monocytes Absolute Auto 1.3 X10*3/uL (0.1-1.2); Monocytes Percent Auto 13.6 % (2-11); Neutrophils Absolute Auto 4.9 x10*3/uL (2.0-8.3); Neutrophils Percent Auto 51.4 % (45-73); Platelet Count 390 X10*3/uL (160-400); Red Cell Distribution Width 13.9 % (11.0-16.0); White Blood Count 9.5 X10*3/uL (4.8-10.8)
[2023-12-15 07:19] LABS: Anion Gap 16 (12-20); Blood Urea Nitrogen 18 mg/dL (9-16); Calcium 10.3 mg/dL (8.4-10.2); Carbon Dioxide 26 mmol/L (22-29); Chloride 105 mmol/L (96-108); Creatinine Clr Calc Pharmacy 119.9; Estimated Glomerular Filt Rate > 60; Glucose Random 145 mg/dL (60-115); Magnesium 1.8 mg/dL (1.6-2.6); Phosphorus 2.6 mg/dL (2.7-4.5); Potassium 3.8 mmol/L (3.3-5.1); Sodium 143 mmol/L (135-145)
[2023-12-15 07:28] LABS: Glucose, Whole Blood 135 mg/dL (60-115)
[2023-12-15 07:33] VITALS: BP 151/91; PULSE 100; RESP 16; TEMP 37.4; O2SAT 95
[2023-12-15] MEDS: Magnesium Oxide 400 MG TABLET PO (07:41)
[2023-12-15] MEDS: Thiamine HCL 100 MG TABLET PO (07:42)
[2023-12-15] MEDS: Famotidine 20 MG TABLET PO ×2 (07:42→20:25)
[2023-12-15] MEDS: DULoxetine HCl 60 MG CAPSULE.DR PO (07:42)
[2023-12-15] MEDS: Folic Acid 1 MG TABLET PO (07:42)
[2023-12-15] MEDS: QUEtiapine Fumarate 25 MG TABLET PO ×2 (07:42→20:25)
[2023-12-15] MEDS: Finasteride 5 MG TABLET PO (07:42)
[2023-12-15] MEDS: Gabapentin 300 MG CAPSULE 600 MG PO ×2 (07:46→20:29)
[2023-12-15] MEDS: Nicotine Polacrilex 2 MG GUM BUCCAL ×3 (07:52→17:32)
[2023-12-15 08:42] LABS: Procalcitonin 0.02 ng/mL
[2023-12-15] MEDS: Calcium Carbonate 750 MG TAB.CHEW PO ×2 (09:18→14:00)
[2023-12-15] MEDS: Buprenorphine/Naloxone 8/2 mg FILM 2 FILM BUCCAL (09:18)
[2023-12-15] MEDS: 0.9 % Sodium Chloride Flush 3 ML SYRINGE IVFLUSH ×2 (09:58→20:25)
--- NOTE | 2023-12-15 10:51 | P.PNIM_ITS ---
Subjective Subjective Date of Service: 12/15/23 Interval History: anxious short of breath + tachycardic to 170s with walking no chest pain Review of Systems Review of Systems: Yes all other systems are reviewed and are negative Physical Exam 2 Vital Signs: Vital Signs: Last Vital Signs Temp 99.3 F 12/15/23 07:33 Pulse 100 12/15/23 07:33 Resp 16 12/15/23 07:33 BP 151/91 H 12/15/23 07:33 Pulse Ox 95 12/15/23 07:33 O2 Del Method Room Air 12/15/23 07:33 O2 Flow Rate 2.5 12/15/23 03:33 FiO2 30 12/12/23 12:36 BMI result Body Mass Index 32.7 Gen: in no acute distress HEENT: sclera anicteric, moist mucus membranes Neck: supple Lungs: diminished Heart: tachycardic, no murmurs Abd: soft, non-tender, non-distended Ext: no edema Skin: warm/well-perfused Neuro: alert and oriented x3, no focal findings Psych: appropriate affect Objective Data Active Medications Acetaminophen (Acetaminophen 325 Mg Tablet) 650 mg PO Q6H PRN PRN Reason: Pain, Mild (Pain Scale 1-3), fever or headache Last Admin: 12/14/23 19:52 Dose: 650 mg Documented By: GABI Atorvastatin Calcium (Atorvastatin Calcium 10 Mg Tablet) 10 mg PO BEDTIME [facility] Last Admin: 12/14/23 19:51 Dose: 10 mg Documented By: GABI Buprenorphine/Naloxone (Buprenorphine/Naloxone 8/2 Mg Film) 2 film BUCCAL DAILY [facility] Last Admin: 12/15/23 09:18 Dose: 2 film Documented By: CHRISSY Calcium Carbonate (Calcium Carbonate 750 Mg Tab.Chew) 750 mg PO Q6H PRN PRN Reason: Heartburn Last Admin: 12/15/23 09:18 Dose: 750 mg Documented By: CHRISSY Duloxetine HCl (Duloxetine Hcl 60 Mg Capsule.Dr) 60 mg PO DAILY [facility] Last Admin: 12/15/23 07:42 Dose: 60 mg Documented By: CHRISSY Enoxaparin Sodium (Enoxaparin Sodium 40 Mg/0.4 Ml Syringe) 40 mg SUBCUT Q24H [facility] Last Admin: 12/14/23 17:15 Dose: 40 mg Documented By: CHRISSY Famotidine (Famotidine 20 Mg Tablet) 20 mg PO BID [facility] Last Admin: 12/15/23 07:42 Dose: 20 mg Documented By: CHRISSY Finasteride (Finasteride 5 Mg Tablet) 5 mg PO DAILY [facility] Last Admin: 12/15/23 07:42 Dose: 5 mg Documented By: CHRISSY Folic Acid (Folic Acid 1 Mg Tablet) 1 mg PO DAILY [facility] Last Admin: 12/15/23 07:42 Dose: 1 mg Documented By: CHRISSY Gabapentin (Gabapentin 300 Mg Capsule) 600 mg PO TID PRN PRN Reason: Anxiety Last Admin: 12/15/23 07:46 Dose: 600 mg Documented By: CHRISSY Glucose (Glucose Gel 15 Gm Gel..Gram.) 15 gm PO Q15M PRN; Protocol PRN Reason: per Hypoglycemia Standing Ord. Dextrose (D10) 250 mls @ 750 mls/hr IV Q15M PRN; Protocol PRN Reason: per Hypoglycemia Standing Ord. Piperacillin Sod/Tazobactam (Sod 3.375 gm/ Sodium Chloride) 50 mls @ 100 mls/hr IV Q6H [facility] Last Infusion: 12/15/23 09:59 Dose: Infused Documented By: CHRISSY Insulin Human Lispro (Insulin Lispro 100 Unit/Ml 3 Ml Vial) 0 unit SUBCUT QIDACHS [facility]; Protocol Last Admin: 12/15/23 07:35 Dose: Not Given Documented By: PAULETTE Non-Admin Reason: No Insulin Coverage Magnesium Oxide (Magnesium Oxide 400 Mg Tablet) 400 mg PO DAILY [facility] Last Admin: 12/15/23 07:41 Dose: 400 mg Documented By: CHRISSY Nicotine Polacrilex (Nicotine Polacrilex 2 Mg Gum) 2 mg BUCCAL Q2H PRN PRN Reason: Nicotine Cravings Last Admin: 12/15/23 07:52 Dose: 2 mg Documented By: CHRISSY Ondansetron HCl (Ondansetron Hcl 4 Mg/2 Ml Vial) 4 mg IVPUSH Q4H PRN PRN Reason: Nausea and Vomiting Quetiapine Fumarate (Quetiapine Fumarate 25 Mg Tablet) 25 mg PO BID [facility] Last Admin: 12/15/23 07:42 Dose: 25 mg Documented By: CHRISSY Sodium Chloride (0.9 % Sodium Chloride Flush 3 Ml Syringe) 3 ml IVFLUSH QSHIFT [facility] Last Admin: 12/15/23 09:58 Dose: 3 ml Documented By: CHRISSY Tamsulosin HCl (Tamsulosin Hcl 0.4 Mg Capsule) 0.8 mg PO DAILY@1730 [facility] Last Admin: 12/14/23 17:15 Dose: 0.8 mg Documented By: CHRISSY Thiamine HCl (Thiamine Hcl 100 Mg Tablet) 100 mg PO DAILY [facility] Last Admin: 12/15/23 07:42 Dose: 100 mg Documented By: CHRISSY Trazodone HCl (Trazodone Hcl 100 Mg Tablet) 200 mg PO BEDTIME PRN PRN Reason: Insomnia Last Admin: 12/14/23 19:51 Dose: 200 mg Documented By: JOHNC Labs 12/15/23 06:45 12/15/23 06:45 Labs: Laboratory Results - last 24 hr 12/14/23 12/14/23 12/14/23 11:08 16:16 19:50 MCV MCH MCHC RDW Plt Count MPV Immature Gran % (Auto) Neut % (Auto) Lymph % (Auto) [place] % (Auto) Eos % (Auto) Baso % (Auto) Lymph # (Auto) [place] # (Auto) Eos # (Auto) Baso # (Auto) Abs Immat Gran (auto) Absolute Neuts (auto) Absolute Nucleated RBC Nucleated RBC % (auto) Anion Gap Estim Creat Clear Calc Estimated GFR POC Glucose 155 H 193 H 142 H Random Glucose Calcium Phosphorus Magnesium Procalcitonin 12/15/23 12/15/23 06:45 07:22 MCV 90.2 MCH 30.7 MCHC 34.0 RDW 13.9 Plt Count 390 D MPV 10.6 Immature Gran % (Auto) 0.4 Neut % (Auto) 51.4 Lymph % (Auto) 28.5 [place] % (Auto) 13.6 H Eos % (Auto) 4.8 H Baso % (Auto) 1.3 Lymph # (Auto) 2.7 [place] # (Auto) 1.3 H Eos # (Auto) 0.5 H Baso # (Auto) 0.1 Abs Immat Gran (auto) 0.04 H Absolute Neuts (auto) 4.9 Absolute Nucleated RBC 0.000 Nucleated RBC % (auto) 0.0 Anion Gap 16 Estim Creat Clear Calc 119.9 Estimated GFR > 60 POC Glucose 135 H Random Glucose 145 H Calcium 10.3 H Phosphorus 2.6 L Magnesium 1.8 Procalcitonin 0.02 Microbiology Microbiology Results: Microbiology 12/12/23 08:40 Gram Stain - Final Sputum - Expectorated Sputum Culture - Preliminary Assessment and Plan (1) Alcohol use disorder, severe, dependence: Status: Acute (2) Alcohol withdrawal syndrome: Status: Acute Plan d17 63yo M with HTN, HLD, DM2, BPH, AUD with hx withdrawal sz, OUD on Suboxone, hx aspiration PNA with hx emergent intubation, mood disorder presenting with AHRF due to aspiration PNA in setting of acute EtOH intoxication admitted 11/29/23 to hospitalist service; hospital course complicated by agitation and ultimately was intubated 12/07/23; extubated 12/10 and stepped down to telemetry unit 12/12 aspiration PNA - PCT low and has been on piperacillin-tazobactam since 11/28; will d/c antibiotic acute hypoxic respiratory failure - supplemental O2, wean as tolerated toxic-metabolic encephalopathy - due to EtOH withdrawal; continue quetiapine HLD - atorvastatin OUD - Suboxone, Addiction Medicine consult, got extra dose 3d ago for withdrawal [had been on fentanyl while ventilated] AUD with withdrawal - completed phenobarbital taper - Addiction Medicine consult neuropathy - continue duloxetine, increased gabapentin anxiety - duloxetine, gabapentin; add back buspirone prostatism - finasteride, tamsulosin VTE prophylaxis - enoxaparin dispo - STR per PT evaluation In my clinical judgment, the patient requires continued inpatient hospitalization for the following reasons: post-ICU care, hypoxia, dispo planning Total time managing care of this patient today: 40 minutes. Quality Stroke Does the patient have a stroke diagnosis?: No VTE Prior VTE?: No VTE Risk Level:: Medical - moderate - high VTE Device Contraindication: N/A - Device Ordered VTE Drug Contraindication: N/A - Med Ordered
[2023-12-15 11:13] LABS: Glucose, Whole Blood 150 mg/dL (60-115)
[2023-12-15] MEDS: busPIRone HCl 5 MG TABLET PO ×2 (11:21→20:25)
[2023-12-15] MEDS: ondansetron HCL 4 MG/2 ML VIAL IVPUSH (11:22)
[2023-12-15 12:00] VITALS: BP 159/94; PULSE 103; RESP 16; TEMP 36.3; O2SAT 93
[2023-12-15 16:00] VITALS: BP 180/60; PULSE 100; RESP 16; TEMP 36; O2SAT 94
[2023-12-15 16:39] LABS: Glucose, Whole Blood 191 mg/dL (60-115)
[2023-12-15] MEDS: Insulin Lispro 100 UNIT/ML 3 ML VIAL SUBCUT (16:46)
[2023-12-15] MEDS: Enoxaparin Sodium 40 MG/0.4 ML SYRINGE SUBCUT (17:25)
[2023-12-15] MEDS: Tamsulosin HCL 0.4 MG CAPSULE 0.8 MG PO (17:27)
[2023-12-15 20:00] VITALS: BP 147/92; PULSE 97; RESP 18; TEMP 36; O2SAT 96
[2023-12-15] MEDS: Atorvastatin Calcium 10 MG TABLET PO (20:25)
[2023-12-15] MEDS: traZODone HCL 100 MG TABLET 200 MG PO (20:29)
[2023-12-15 21:07] LABS: Glucose, Whole Blood 129 mg/dL (60-115)
[2023-12-15] MEDS: Labetalol HCL 100 MG/20 ML VIAL 10 MG IVPUSH (21:21)
[2023-12-16] VITALS: BP 124/68; PULSE 91; RESP 18; TEMP 36.1; O2SAT 94
[2023-12-16] MEDS: Piperacillin Sodium/Tazobactam 3.375 GM in 0.9 % Sodium Chloride 50 ML IV ×2 (01:14→07:38)
[2023-12-16 04:00] VITALS: BP 132/67; PULSE 90; RESP 18; TEMP 36.1; O2SAT 95
[2023-12-16 06:00] VITALS: BMI 33.8
[2023-12-16 06:50] LABS: Basophils Absolute Auto 0.1 X10*3/uL (0.0-0.2); Basophils Percent Auto 1.2 % (0-2); Eosinophils Absolute Auto 0.4 X10*3/uL (0.0-0.4); Eosinophils Percent Auto 4.9 % (0-4); Hematocrit 39.3 % (42.0-52.0); Hemoglobin 13.5 g/dl (14.0-18.0); Imm Gran Abs Auto 0.06 X10*3/uL (0.00-0.03); Imm Gran Pct Auto 0.7 % (0.0-0.4); Lymphocytes Absolute Auto 3.2 X10*3/uL (1.2-4.9); Lymphocytes Percent Auto 35.8 % (20-40); MANUAL DIFF FLAG SCAN; Mean Corpuscular HGB Conc 34.4 g/dl (31.0-36.0); Mean Corpuscular Volume 90.1 fL (80.0-98.0); Monocytes Absolute Auto 1.2 X10*3/uL (0.1-1.2); Monocytes Percent Auto 13.5 % (2-11); Neutrophils Absolute Auto 3.9 x10*3/uL (2.0-8.3); Neutrophils Percent Auto 43.9 % (45-73); PLT CLUMP 1; Red Blood Count 4.36 X10*6/uL (4.60-5.80); Red Cell Distribution Width 13.3 % (11.0-16.0); SCAN SMEAR FLAG 1
[2023-12-16 07:06] LABS: Anion Gap 15 (12-20); Blood Urea Nitrogen 14 mg/dL (9-16); Calcium 9.8 mg/dL (8.4-10.2); Carbon Dioxide 27 mmol/L (22-29); Chloride 104 mmol/L (96-108); Creatinine Clr Calc Pharmacy 119.9; Estimated Glomerular Filt Rate > 60; Glucose Random 134 mg/dL (60-115); Magnesium 1.8 mg/dL (1.6-2.6); Phosphorus 3.5 mg/dL (2.7-4.5); Potassium 4.3 mmol/L (3.3-5.1); Sodium 142 mmol/L (135-145)
[2023-12-16 07:18] VITALS: BP 156/98; PULSE 91; RESP 18; TEMP 36.2; O2SAT 94
[2023-12-16] MEDS: Finasteride 5 MG TABLET PO (07:36)
[2023-12-16] MEDS: Magnesium Oxide 400 MG TABLET PO (07:37)
[2023-12-16] MEDS: Thiamine HCL 100 MG TABLET PO (07:37)
[2023-12-16] MEDS: DULoxetine HCl 60 MG CAPSULE.DR PO (07:37)
[2023-12-16] MEDS: Folic Acid 1 MG TABLET PO (07:37)
[2023-12-16] MEDS: QUEtiapine Fumarate 25 MG TABLET PO (07:37)
[2023-12-16] MEDS: busPIRone HCl 5 MG TABLET PO (07:37)
[2023-12-16] MEDS: Famotidine 20 MG TABLET PO (07:37)
[2023-12-16] MEDS: 0.9 % Sodium Chloride Flush 3 ML SYRINGE IVFLUSH (07:38)
[2023-12-16] MEDS: Gabapentin 300 MG CAPSULE 600 MG PO (07:42)
[2023-12-16 07:43] LABS: Glucose, Whole Blood 131 mg/dL (60-115)
[2023-12-16] MEDS: Nicotine Polacrilex 2 MG GUM BUCCAL ×2 (07:43→12:46)
[2023-12-16 08:10] LABS: Platelet Count 361 X10*3/uL (160-400); White Blood Count 8.9 X10*3/uL (4.8-10.8)
[2023-12-16 08:11] LABS: Mean Platelet Volume 10.4 fL (9.4-12.4); SLIDE REVIEW VERIFIED
[2023-12-16 08:48] VITALS: PULSE 131; O2SAT 94
[2023-12-16] MEDS: Buprenorphine/Naloxone 8/2 mg FILM 2 FILM BUCCAL (09:05)
[2023-12-16 11:13] VITALS: BP 146/98; PULSE 90; RESP 18; TEMP 36.6; O2SAT 94
[2023-12-16 11:18] LABS: Glucose, Whole Blood 143 mg/dL (60-115)
[2023-12-16] MEDS: Calcium Carbonate 750 MG TAB.CHEW PO (13:08)
--- NOTE | 2023-12-16 14:17 | P.DS_ITS ---
DS: Providers Provider Date of Service: 12/16/23 Date of admission: 11/29/23 18:02 Date of discharge: 12/16/23 Primary care physician: Estela Gupta MD Consults: 11/29/23 18:30 Addiction Medicine Routine Consulting Provider: Addiction Covering Reason for consultation: Alcohol use disorder 12/12/23 14:15 Addiction Medicine Stat Consulting Provider: Addiction Covering Reason for consultation: ? Opioid Withdrawal, Already on Suboxone DS: Diagnosis Discharge Diagnosis (1) Alcohol use disorder, severe, dependence: Status: Acute (2) Alcohol withdrawal syndrome: Status: Acute DS: Summary Hospital Course Hospital Course: 63-year-old male with a PMH significant for?HTN, HLD, [id number] type 2 diabetes, BPH, alcohol use disorder with hx of withdrawal seizures, hx of opioid use disorder on Suboxone, hx of aspiration pneumonia requiring emergent intubation in the past, anxiety, and depression who presents to the ED requesting detox. Patient is somnolent but arousable at time of interview and exam however appears acutely intoxicated with slurred speech and immediately falling back asleep before fully answering questions. HPI is thus obtained from chart and provider review. Patient reports drinking at least a 5th of 100 proof vodka daily as well as on unknown amount of beer. Last drink approximately 3-4 hours before presentation. Patient complains of throat discomfort and nausea with possible vomiting earlier in the day. Denies significant shortness of breath. No chest pain. Denies auditory or visual hallucinations. In the ED pt was tachycardic up to 124 and satting as low as 87% on room air. Labs were significant for lactic acid 3.8 and ethyl alcohol level 204, otherwise grossly unremarkable. No leukocytosis. Stable H& H. No significant electrolyte abnormalities. Renal and hepatic function baseline. CXR showed no acute cardiopulmonary findings. EKG demonstrated sinus tachycardia of 105 with QT of 422. Pt was treated with IVF, ondansetron, Zosyn, and started on phenobarb protocol. Pt will be admitted to the hospital for treatment and further evaluation of acute hypoxic respiratory failure likely secondary to aspiration pneumonia in the setting of acute alcohol intoxication. Hospital course Patient was admitted to general medical floor maintain on phenobarb protocol as dictated by CIWA scale. On 12/04/2023 patient's withdrawal escalated and was unable to be maintained despite phenobarb IM and multiple IV Ativan dosing. ICU was called and patient was transferred down to ICU. He was subsequently intubated and treated aggressively for his withdrawal. He also was treated with Zosyn for probable aspiration pneumonia. On 12/13/2023 patient was transferred back telemetry where he remained symptom-free. On the day of discharge he is back to baseline. He is strongly advised to stop alcohol. He states he has previously been in AA and has contacted people in his group. Addiction Medicine has given him outpatient resources and he is eager to start his recovery. He understands the gravity of him receiving alcohol intake Time Attestation Discharge Coordination Time (in mins): 35 Quality: Safe Use of Opioids Does Pt have an Active Cancer Diagnosis on the Problem List?: No Quality: Stroke Does the patient have a stroke diagnosis?: No Physical Exam Vital Signs: Vital Signs: Last Vital Signs Temp 97.8 F 12/16/23 11:13 Pulse 90 12/16/23 11:13 Resp 18 12/16/23 11:13 BP 146/98 H 12/16/23 11:13 Pulse Ox 94 12/16/23 11:13 O2 Del Method Room Air 12/16/23 11:13 O2 Flow Rate 2 12/16/23 07:18 FiO2 30 12/12/23 12:36 BMI result Body Mass Index 33.8 Const: Other: Somnolent but arousable. No seizure activity Resp: Other: Clear to auscultation bilaterally no rales rhonchi wheezes Cardio: Other: No S4; positive S1-S2; no S3 murmurs rubs or gallops GI: Other: Soft nontender nondistended normoactive bowel sounds Neuro: Other: Cranial nerves 2-12 grossly intact as tested. Motor is 5/5 all extremities sensation is intact. Gait is steady. Cognition appropriate Extrem: Other: No edema bilaterally DS: Data Data Completed and Pending Completed studies during hospitalization [Text1]: Procedures Detoxification Services for Substance Abuse Treatment (07/17/23) Drainage of Bladder with Drainage Device, Via Natural or Artificial Opening (07/17/23) Insertion of Endotracheal Airway into Trachea, Via Natural or Artificial Opening (07/17/23) Introduction of Vasopressor into Peripheral Vein, Percutaneous Approach (07/17/23) Respiratory Ventilation, 24-96 Consecutive Hours (07/17/23) Labs on day of discharge: Laboratory Results - last 24 hr 12/15/23 12/15/23 12/16/23 16:32 19:31 06:38 WBC 8.9 RBC 4.36 L Hgb 13.5 L Hct 39.3 L MCV 90.1 MCH 31.0 MCHC 34.4 RDW 13.3 Plt Count 361 MPV 10.4 Immature Gran % (Auto) 0.7 H Neut % (Auto) 43.9 L Lymph % (Auto) 35.8 [place] % (Auto) 13.5 H Eos % (Auto) 4.9 H Baso % (Auto) 1.2 Lymph # (Auto) 3.2 [place] # (Auto) 1.2 Eos # (Auto) 0.4 Baso # (Auto) 0.1 Abs Immat Gran (auto) 0.06 H Absolute Neuts (auto) 3.9 Absolute Nucleated RBC 0.000 Nucleated RBC % (auto) 0.0 Smear Tech's Comments VERIFIED Sodium 142 Potassium 4.3 Chloride 104 Carbon Dioxide 27 Anion Gap 15 BUN 14 Creatinine 0.74 Estim Creat Clear Calc 119.9 Estimated GFR > 60 POC Glucose 191 H 129 H Random Glucose 134 H Calcium 9.8 Phosphorus 3.5 Magnesium 1.8 12/16/23 12/16/23 07:20 11:15 WBC RBC Hgb Hct MCV MCH MCHC RDW Plt Count MPV Immature Gran % (Auto) Neut % (Auto) Lymph % (Auto) [place] % (Auto) Eos % (Auto) Baso % (Auto) Lymph # (Auto) [place] # (Auto) Eos # (Auto) Baso # (Auto) Abs Immat Gran (auto) Absolute Neuts (auto) Absolute Nucleated RBC Nucleated RBC % (auto) Smear Tech's Comments Sodium Potassium Chloride Carbon Dioxide Anion Gap BUN Creatinine Estim Creat Clear Calc Estimated GFR POC Glucose 131 H 143 H Random Glucose Calcium Phosphorus Magnesium Discharge Plan Discharge Anticipated Discharge Date/Time: 12/16/23 14:14 Patient Disposition: Home, Self-Care Discharge Diagnosis: Acute alcohol withdrawal Referrals: Estela Gupta MD [Primary Care Provider] - 1 Week Discharge Medications: Continued buspirone 5 mg Tablet 5 mg PO BID atorvastatin 20 mg Tablet 10 mg PO BEDTIME gabapentin 400 mg Capsule 1,200 mg PO TID PRN (Reason: Anxiety/Pain) tamsulosin 0.4 mg Capsule 0.8 mg PO BEDTIME trazodone 100 mg Tablet 200 mg PO BEDTIME PRN (Reason: Insomnia) metformin 1,000 mg Tablet 1,000 mg PO DAILY finasteride 5 mg Tablet 5 mg PO DAILY melatonin 5 mg Tablet 5 mg PO BEDTIME buprenorphine-naloxone [Suboxone] 8-2 mg Film 2 film BUCCAL DAILY Rx Instructions: place 1 film on inside of (each) cheek hydroxyzine HCl 25 mg Tablet 25 mg PO BEDTIME PRN (Reason: Sleep) cyclobenzaprine 10 mg Tablet 10 mg PO TID PRN (Reason: Muscle Spasm) duloxetine 60 mg Capsule, Delayed Rel Sprinkle 120 mg PO DAILY vitamin B complex Tablet 1 tab PO Q48H testosterone 1.62 % (20.25 mg/1.25 gram) Gel In Packet 2 packet TRANSDERMAL DAILY Rx Instructions: apply 20.25 mg /1 packet to max area of EACH upper arm and shoulder sennosides [senna] 8.6 mg Tablet 17.2 mg PO DAILY metoprolol succinate 25 mg Tablet Extended Release 24 Hr 25 mg PO BEDTIME polyethylene glycol 3350 17 gram/dose Powder 17 g PO DAILY tadalafil 20 mg Tablet 20 mg PO Q3D PRN (Reason: Erectile Dysfunction) Rx Instructions: administer approximately 30min before sexual activity; do not use more than 1 dose per 72hrs acamprosate 333 mg Tablet,Delayed Release (Dr/Ec) 666 mg PO TID cholecalciferol (vitamin D3) [Vitamin D3] 50 mcg (2,000 unit) Tablet 50 mcg PO DAILY magnesium oxide 400 mg magnesium Tablet 400 mg PO DAILY Discharge Orders: Discharge Order (Routine); Ordered 12/16/23 Ordered By: Chase Bee Diet: Advance to usual diet Activity on Discharge: As tolerated Stand Alone Forms: Patient Portal Discharge page Print Language: [place]uran Care Plan Goals: Continue all medicines as taken before hospital Health Concerns: Absolutely no alcohol. You need to get involved in a 12 step program Plan of Treatment: Follow up with the PCP next available Assessment: See discharge summary
--- NOTE | 2023-12-16 14:25 | MHC.RECOVRN ---
AUDIT-C Brief Intervention Pt had positive screen for unhealthy alcohol use on admission, subsequently met with t/w to discuss alcohol use and recovery supports/options. This commercial insurance underwriter met with patient to discuss current alcohol use and concerns related to increased risk of alcohol related problems.? Pt reports a fifth of vodka daily x 2 weeks (approx 25 ounces). Discussed how alcohol use has impacted health, including negative impact on overall physical wellbeing. 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 Provided pt with written resources including information on inpatient and outpatient treatment, FRANCOIS, harm reduction, and recovery coaching. Pt plans to reconnect with AA upon discharge, attend [facility] groups, and continue buprenorphine. Pt also interested in disaster recovery consultant. Pt provided with t/w contact information if questions or concerns arise. Denies other questions or concerns at this time.? high school academic coach referral placed.
--- NOTE | 2023-12-16 15:02 | MHC.CM.PN ---
Pt has been medically cleared for DC, he will go home via private transport, plan is self care.
== END 2023-12-16 15:13 | disposition home or self-care (01) | DRG 207 ==
LOC: HO.ED 13:58 → HO.EDOVER 18:17 → HO.IMC 23:24 → HO.ICU 12-04 13:13 → HO.IMC 12-13 12:27
PROVIDERS: Family Medicine; Internal Medicine Critical Care Medicine; Nurse Practitioner Family; Physician Assistant; Physician Assistant Medical; Registered Nurse Community Health; Admitting Provider Student in an Organized Health Care Education/Training Program; Emergency Provider Emergency Medicine; PCP Internal Medicine; Visit Provider Hospitalist
DX: J69.0 Pneumonitis due to inhalation of food and vomit (principal); G92.8 Other toxic encephalopathy; J96.01 Acute respiratory failure with hypoxia; F10.239 Alcohol dependence with withdrawal, unspecified; F11.20 Opioid dependence, uncomplicated; E87.20 Acidosis, unspecified; I95.2 Hypotension due to drugs; T42.75XA Adverse effect of unspecified antiepileptic and sedative-hypnotic drugs, initial encounter; E11.65 Type 2 diabetes mellitus with hyperglycemia; E11.40 Type 2 diabetes mellitus with diabetic neuropathy, unspecified; F10.229 Alcohol dependence with intoxication, unspecified; F19.90 Other psychoactive substance use, unspecified, uncomplicated; Y90.7 Blood alcohol level of 200-239 mg/100 ml; N40.0 Benign prostatic hyperplasia without lower urinary tract symptoms; Z87.891 Personal history of nicotine dependence; Z79.84 Long term (current) use of oral hypoglycemic drugs; Z79.899 Other long term (current) drug therapy
CPT/HCPCS: 36415; 70450; 71045; 80048; 80053; 80307; 81003; 82040; 82140; 82803; 82947; 83605; 83690; 83735; 84100; 84145; 85025; 87040; 87070; 87077; 87185; 87205; 92526; 92610; 93005; 94002; 94003; 94799; 97116; 97162; 99285; C1758; J0131; J0360; J0571; J1630; J1650; J1920; J1940; J2060; J2250; J2359; J2405; J2543; J2560; J2704; J3010; J3475; J7120; P9047

== ENCOUNTER → 2023-11-29 18:02 | Outpatient (BNV) | payer OTHER, SELFPAY | PROVIDERS: Admitting Provider Student in an Organized Health Care Education/Training Program; Emergency Provider Emergency Medicine; PCP Internal Medicine; Visit Provider Nurse Practitioner Psychiatric/Mental Health | DX: F10.20 Alcohol dependence, uncomplicated (principal) | CPT/HCPCS: 99231 ==

== ENCOUNTER → 2023-11-29 18:02 | Outpatient (BNV) | payer OTHER, SELFPAY | PROVIDERS: Admitting Provider Student in an Organized Health Care Education/Training Program; Emergency Provider Emergency Medicine; Visit Provider Internal Medicine Critical Care Medicine | DX: R41.0 Disorientation, unspecified (principal); T17.900A Unspecified foreign body in respiratory tract, part unspecified causing asphyxiation, initial encounter; F10.930 Alcohol use, unspecified with withdrawal, uncomplicated | CPT/HCPCS: 31500; 99223; 99232; 99233; 99291; 99499 ==

== ENCOUNTER → 2023-11-29 18:02 | Outpatient (BNV) | payer OTHER, SELFPAY | PROVIDERS: Admitting Provider Student in an Organized Health Care Education/Training Program; Emergency Provider Emergency Medicine; Visit Provider Hospitalist | DX: F10.239 Alcohol dependence with withdrawal, unspecified (principal) | CPT/HCPCS: 99223; 99232; 99233; 99239; 99499 ==

== ENCOUNTER 2024-04-25 12:06 | Inpatient (IN) | payer OTHER, SELFPAY ==
[2024-04-25] VITALS (9 sets, daily range): BP systolic 99–139; BP diastolic 70–99; PULSE 95–116; RESP 13–22; TEMP 36.3–37; O2SAT 93–97; BMI 30.7; BMI 32.7; BMI 32.6
--- NOTE | ~2024-04-25 | XR_ITS ---
CLINICAL HISTORY: cough, weakness Chest Radiographs, 2 views Comparison: CR/SR - XR CHEST 1V - 12/07/23 02:30 EDT CR/GA/SR - XR CHEST 1V - 11/29/23 13:50 EDT Findings: No cardiomegaly. Normal mediastinal contours. No pneumothorax. No opacity. No pleural effusion. Normal upper abdomen. No acute fracture. Impression: No acute findings. This document has been electronically signed by: Elicia Liang MD on 04/25/2024 13:50:55
--- NOTE | 2024-04-25 12:16 | ED_ITS ---
HPI - General Adult General Chief complaint: ETOH/Substance Use Stated complaint: Seeking Detox Time Seen by Provider: 04/25/24 12:45 Source: patient, RN notes reviewed and old records reviewed Mode of arrival: ambulatory Limitations: no limitations History of Present Illness ED Provider: Naseem HUNTLEY narrative: Patient is a 63-year-old male with history of history of alcohol use disorder, alcohol withdrawal seizures, depression, anxiety, HTN, diabetes, HLD presenting to the emergency department with complaint of withdrawal symptoms and requesting detox from alcohol. States he is drinking 20 beers and a half pint of vodka daily, last drink one hour prior to arrival. Complains of epigastric pain, denies nausea or vomiting. Mild headache. Reports having a seizure at home a few days ago but was able to drink alcohol to prevent further seizures. MD complaint: alcohol withdrawal Onset (ago): hour(s) Treatments prior to arrival: none Related Data Home Medications ?Medication ?Instructions ?Recorded ?Confirmed atorvastatin 20 mg tablet 10 mg PO BEDTIME 11/21/22 11/29/23 buprenorphine 8 mg-naloxone 2 mg 2 film buccal DAILY 11/21/22 11/29/23 sublingual film (Suboxone) buspirone 5 mg tablet 5 mg PO BID 11/21/22 11/29/23 finasteride 5 mg tablet 5 mg PO DAILY 11/21/22 11/29/23 gabapentin 400 mg capsule 1,200 mg PO TID PRN Anxiety/Pain 11/21/22 11/29/23 hydroxyzine HCl 25 mg tablet 25 mg PO BEDTIME PRN Sleep 11/21/22 11/29/23 melatonin 5 mg tablet 5 mg PO BEDTIME 11/21/22 11/29/23 metformin 1,000 mg tablet 1,000 mg PO DAILY 11/21/22 11/29/23 tamsulosin 0.4 mg capsule 0.8 mg PO BEDTIME 11/21/22 11/29/23 trazodone 100 mg tablet 200 mg PO BEDTIME PRN Insomnia 11/21/22 11/29/23 cyclobenzaprine 10 mg tablet 10 mg PO TID PRN Muscle Spasm 01/31/23 11/29/23 duloxetine 60 mg capsule,delayed 120 mg PO DAILY 07/17/23 11/29/23 release sprinkle testosterone 1.62 % (20.25 mg/1.25 2 packet transdermal DAILY 07/17/23 11/29/23 gram) transdermal gel packet vitamin B complex 1 tab PO Q48H 07/17/23 11/29/23 acamprosate 333 mg tablet,delayed 666 mg PO TID 11/29/23 11/29/23 release cholecalciferol (vitamin D3) 50 50 mcg PO DAILY 11/29/23 11/29/23 mcg (2,000 unit) tablet (Vitamin D3) magnesium oxide 400 mg PO DAILY 11/29/23 11/29/23 metoprolol succinate 25 mg 25 mg PO BEDTIME 11/29/23 11/29/23 tablet,extended release 24 hr polyethylene glycol 3350 17 17 g PO DAILY 11/29/23 11/29/23 gram/dose oral powder sennosides 8.6 mg tablet (senna) 17.2 mg PO DAILY 11/29/23 11/29/23 tadalafil 20 mg tablet 20 mg PO Q3D PRN Erectile 11/29/23 11/29/23 Dysfunction Allergies Allergy/AdvReac Type Severity Reaction Status Date / Time No Known Allergies Allergy Verified 04/25/24 12:19 Review of Systems 2 Review of Systems: As per HPI. Yes all other systems are reviewed and are negative Constitutional: Constitutional: Reports as per HPI [facility] Past Medical History Medical History (Updated 04/25/24 @ 14:14 by Allison Gusman NP) Alcohol use disorder, severe, dependence Alcohol abuse Hyperlipidemia Depression with anxiety Diabetes Hypertension Social History Social History Household Members: Children Household Members Other:: Self with a dog{ Parker} Housing: House Do you presently have visiting nurse or other home services: No Alcohol intake: current Alcohol intake frequency: 3 or more drinks per day Alcohol type: beer Comment: sitter in place Patient Tobacco Use Status: Former Tobacco user Second Hand Smoke Exposure: No Substance Use Type: Marijuana Advance Directives: Yes Advance Directives on File: Yes Advance Directives Date on File: 07/30/23 service: Yes Physical Exam ED Vital Signs: Vital Signs - 24 hr 04/25/24 12:16 04/25/24 13:34 Temperature 98.6 F Pulse Rate 102 H 95 Respiratory Rate 20 16 Blood Pressure 128/81 121/76 Pulse Oximetry 94 93 Oxygen Delivery Method Room Air Room Air BMI result Body Mass Index 32.7 Vital signs have been reviewed and appear to be correct. Blood pressure normal. Heart rate slightly tachycardic. Respiratory rate normal. Temperature normal. Oxygen saturation normal. Const General: cooperative and no acute distress Orientation/consciousness: oriented to person, oriented to place, oriented to time and patient oriented x3 Limitations: no limitations HENMT Head: Yes normocephalic and Yes atraumatic Ears: external ears normal General nose exam: Normal external nose present Face and sinus: Yes face symmetric Mouth: oropharynx normal and moist mucous membranes Throat: Yes uvula midline Eyes Pupils: Equal, round and reactive pupils present Neck Neck: Yes normal visual inspection and Yes supple Resp Effort & Inspection: normal respiratory effort and able to speak in complete sentences Auscultation: clear to auscultation bilaterally Cardio Rate: regular rate Rhythm: regular rhythm Heart sounds: S1 normal heart sound present and S2 normal heart sound present GI Palpation (GI): Soft to palpation and nontender Auscultation: normoactive bowel sounds General: Yes no CVA tenderness Back/Spine/Pelvis Back: no CVA tenderness Skin General skin exam: elasticity normal and turgor normal Neuro General: oriented to person, oriented to place, oriented to time, patient oriented x3, moves all extremities, no focal motor deficits and CN's II-XI intact bilaterally Cranial nerves: Yes Equal, round and reactive pupils present Cognition (Neuro): normal cognition Motor exam (neuro): Tremors during motor activity present bilateral upper extremity resting tremor Extrem General: Yes full ROM, Yes no pedal edema and Yes no calf tenderness Psych Mental Status: mental status grossly normal Affect: normal affect Thought process: Normal thought process present Course Course Course Narrative: RME performed by Rasheeda Lassiter PA-C. Patient is a 63 year old assigned male at presenting to the emergency department with alcohol withdrawal. Patient states that he is currently withdrawing from alcohol and would like help with detox placement. Patient states that his last drink was earlier this morning. Detailed physical exam and review of systems are deferred to the jumpbasting machine operator. EKG, labs, imaging, and swabs ordered. Patient placed back in the waiting room pending room availability and results. Medications Administered Discontinued Medications Generic Name Dose Route Start Last Admin Trade Name Freq PRN Reason Stop Dose Admin Lorazepam 2 mg 04/25/24 12:17 04/25/24 12:26 Lorazepam 1 Mg Tablet PO 04/25/24 12:18 2 mg ONCE ONE Administration Nicotine 21 mg 04/25/24 13:06 04/25/24 13:29 Nicotine 21 Mg Patch.Td24 TRANSDERMA 04/25/24 13:07 21 mg ONCE ONE Administration Phenobarbital Sodium 301 mg 04/25/24 14:00 04/25/24 13:30 Phenobarbital Sodium 130 Mg/Ml Im Once IM 04/25/24 14:01 301 mg ONCE ONE Administration Protocol Thiamine HCl 100 mg 04/25/24 12:57 04/25/24 13:29 Thiamine Hcl 200 Mg/2 Ml Vial IM 04/25/24 12:58 100 mg ONCE ONE Administration Medical Decision Making Medical Decision Making [facility] Narrative: Patient is a 63-year-old male with history of history of alcohol use disorder, alcohol withdrawal seizures, depression, anxiety, HTN, diabetes, HLD presenting to the emergency department with complaint of withdrawal symptoms and requesting detox from alcohol. On exam patient is awake, A+Ox3, VS WNL, afebrile, resting tremors noted, physical exam findings as above. Given reported symptoms and physical exam findings, initial differential includes but is not limited to alcohol withdrawal, delirium tremens, aspiration pneumonia, alcohol use disorder. Labs notable for ethanol of 246, no significant electrolyte abnormalities. X-ray chest notable for no evidence of pneumonia. My interpretation is in agreement with the radiologist's interpretation. Phenobarb ordered as well as thiamine, CIWA. Admission to medicine for alcohol withdrawal accepted by Dr. Feldman. Differential Diagnosis Differential Diagnoses: The differential diagnosis associated with the presentation includes As per [facility] Admission/Observation Consideration of admission/observation: Escalation of care including admission/observation considered Consult Healthcare Provider Management of the patient was discussed with: Hospitalist Lab Data [facility] Lab Attestation statement: I reviewed the patient's lab results. As perMDM 04/25/24 12:50 04/25/24 12:50 Labs: Lab Results 04/25/24 Range/Units 12:50 WBC 7.6 (4.8-10.8) X10*3/uL RBC 5.05 (4.60-5.80) X10*6/uL Hgb 15.7 (14.0-18.0) g/dl Hct 45.1 (42.0-52.0) % MCV 89.3 (80.0-98.0) fL MCH 31.1 (27.0-33.0) pg MCHC 34.8 (31.0-36.0) g/dl RDW 14.2 (11.0-16.0) % Plt Count 225 D (160-400) X10*3/uL MPV 10.0 (9.4-12.4) fL Immature Gran % (Auto) 0.3 (0.0-0.4) % Neut % (Auto) 59.8 (45-73) % Lymph % (Auto) 32.3 (20-40) % [place] % (Auto) 6.0 (2-11) % Eos % (Auto) 0.4 (0-4) % Baso % (Auto) 1.2 (0-2) % Lymph # (Auto) 2.4 (1.2-4.9) X10*3/uL [place] # (Auto) 0.5 (0.1-1.2) X10*3/uL Eos # (Auto) 0.0 (0.0-0.4) X10*3/uL Baso # (Auto) 0.1 (0.0-0.2) X10*3/uL Abs Immat Gran (auto) 0.02 (0.00-0.03) X10*3/uL Absolute Neuts (auto) 4.5 (2.0-8.3) x10*3/uL Absolute Nucleated RBC 0.000 (0.0-0.012) X10*3/uL Nucleated RBC % (auto) 0.0 (0.0-0.2) /100WBC Sodium 141 (135-145) mmol/L Potassium 4.1 (3.3-5.1) mmol/L Chloride 104 (96-108) mmol/L Carbon Dioxide 21 L (22-29) mmol/L Anion Gap 20 (12-20) BUN 7 L (9-16) mg/dL Creatinine 0.74 (0.5-1.4) mg/dL Estim Creat Clear Calc 119.7 Estimated GFR > 60 Random Glucose 102 (60-115) mg/dL Calcium 9.0 D (8.4-10.2) mg/dL Magnesium 2.1 (1.6-2.6) mg/dL Total Bilirubin 0.3 (0.0-1.0) mg/dL AST 30 (5-37) U/L ALT 17 (0-40) U/L Alkaline Phosphatase 69 (39-117) U/L Total Protein 7.6 (6.5-8.0) g/dL Albumin 4.2 (3.5-5.0) g/dL Ethyl Alcohol 246 mg/dL Influenza Type A (PCR) NEGATIVE (Negative) Influenza Type B (PCR) NEGATIVE (Negative) RSV RNA Qual (PCR) NEGATIVE (Negative) SARS-CoV-2 RNA (RT-PCR) NEGATIVE (Negative) Independent Interpretation I performed an independent interpretation of an: EKG (normal sinus rhythm,rate 88bpm, normal AL interval and QTc) and Plain X-Ray Interpretation: Chest x-ray is without evidence of pneumonia. Radiology Impression Discussion of test interpretation with radiology: I have reviewed the radiologist's reading. Radiologist Impression: Findings: No cardiomegaly. Normal mediastinal contours. No pneumothorax. No opacity. No pleural effusion. Normal upper abdomen. No acute fracture. Impression: No acute findings. Independent Historian Clinical information obtained from an independent historian. History obtained from or confirmed by: Other (sister) External Record Review External record reviewed: Inpatient record, Office record and Outpatient record Discharge Plan Discharge Patient Disposition: Admitted As Inpatient Prescriptions: No Action buspirone 5 mg Tablet 5 mg PO BID atorvastatin 20 mg Tablet 10 mg PO BEDTIME gabapentin 400 mg Capsule 1,200 mg PO TID PRN (Reason: Anxiety/Pain) tamsulosin 0.4 mg Capsule 0.8 mg PO BEDTIME trazodone 100 mg Tablet 200 mg PO BEDTIME PRN (Reason: Insomnia) metformin 1,000 mg Tablet 1,000 mg PO DAILY finasteride 5 mg Tablet 5 mg PO DAILY melatonin 5 mg Tablet 5 mg PO BEDTIME buprenorphine-naloxone [Suboxone] 8-2 mg Film 2 film BUCCAL DAILY Rx Instructions: place 1 film on inside of (each) cheek hydroxyzine HCl 25 mg Tablet 25 mg PO BEDTIME PRN (Reason: Sleep) cyclobenzaprine 10 mg Tablet 10 mg PO TID PRN (Reason: Muscle Spasm) duloxetine 60 mg Capsule, Delayed Rel Sprinkle 120 mg PO DAILY vitamin B complex Tablet 1 tab PO Q48H testosterone 1.62 % (20.25 mg/1.25 gram) Gel In Packet 2 packet TRANSDERMAL DAILY Rx Instructions: apply 20.25 mg /1 packet to max area of EACH upper arm and shoulder sennosides [senna] 8.6 mg Tablet 17.2 mg PO DAILY metoprolol succinate 25 mg Tablet Extended Release 24 Hr 25 mg PO BEDTIME polyethylene glycol 3350 17 gram/dose Powder 17 g PO DAILY tadalafil 20 mg Tablet 20 mg PO Q3D PRN (Reason: Erectile Dysfunction) Rx Instructions: administer approximately 30min before sexual activity; do not use more than 1 dose per 72hrs acamprosate 333 mg Tablet,Delayed Release (Dr/Ec) 666 mg PO TID cholecalciferol (vitamin D3) [Vitamin D3] 50 mcg (2,000 unit) Tablet 50 mcg PO DAILY magnesium oxide 400 mg magnesium Tablet 400 mg PO DAILY Print Language: Slovak
--- NOTE | 2024-04-25 12:17 | ECG_ITS ---
Test Reason : WITHDRAWLS Blood Pressure : */* mmHG Vent. Rate : 88 BPM Atrial Rate : 88 BPM P-R Int : 200 ms QRS Dur : 96 ms QT Int : 356 ms P-R-T Axes : 51 -32 54 degrees QTcB Int : 430 ms Normal sinus rhythm Left axis deviation Abnormal ECG When compared with ECG of 13-Dec-2023 08:18, No significant change was found Referred By: Rasheeda Lassiter Electronically Signed By: Eric Sykes
[2024-04-25] MEDS: LORazepam 1 MG TABLET 2 MG PO (12:26)
[2024-04-25 12:59] LABS: MANUAL DIFF FLAG NO
[2024-04-25 13:04] LABS: Basophils Absolute Auto 0.1 X10*3/uL (0.0-0.2); Basophils Percent Auto 1.2 % (0-2); Eosinophils Percent Auto 0.4 % (0-4); Hematocrit 45.1 % (42.0-52.0); Hemoglobin 15.7 g/dl (14.0-18.0); Imm Gran Abs Auto 0.02 X10*3/uL (0.00-0.03); Imm Gran Pct Auto 0.3 % (0.0-0.4); Lymphocytes Absolute Auto 2.4 X10*3/uL (1.2-4.9); Lymphocytes Percent Auto 32.3 % (20-40); Mean Corpuscular HGB Conc 34.8 g/dl (31.0-36.0); Mean Corpuscular Hemoglobin 31.1 pg (27.0-33.0); Mean Corpuscular Volume 89.3 fL (80.0-98.0); Monocytes Absolute Auto 0.5 X10*3/uL (0.1-1.2); Neutrophils Absolute Auto 4.5 x10*3/uL (2.0-8.3); Neutrophils Percent Auto 59.8 % (45-73); Platelet Count 225 X10*3/uL (160-400); Red Blood Count 5.05 X10*6/uL (4.60-5.80); Red Cell Distribution Width 14.2 % (11.0-16.0); White Blood Count 7.6 X10*3/uL (4.8-10.8)
[2024-04-25 13:20] LABS: Alanine Aminotransferase 17 U/L (0-40); Albumin Level 4.2 g/dL (3.5-5.0); Alkaline Phosphatase 69 U/L (39-117); Anion Gap 20 (12-20); Aspartate Amino Transferase 30 U/L (5-37); Bilirubin Total 0.3 mg/dL (0.0-1.0); Blood Urea Nitrogen 7 mg/dL (9-16); Carbon Dioxide 21 mmol/L (22-29); Chloride 104 mmol/L (96-108); Creatinine Clr Calc Pharmacy 119.7; Estimated Glomerular Filt Rate > 60; Ethanol 246 mg/dL; Glucose Random 102 mg/dL (60-115); Magnesium 2.1 mg/dL (1.6-2.6); Potassium 4.1 mmol/L (3.3-5.1); Sodium 141 mmol/L (135-145); Total Protein 7.6 g/dL (6.5-8.0)
[2024-04-25] MEDS: Thiamine HCL 200 MG/2 ML VIAL 100 MG IM (13:29)
[2024-04-25] MEDS: Nicotine 21 MG PATCH.TD24 TRANSDERMA (13:29)
[2024-04-25] MEDS: PHENobarbitaL sodium 130 MG/ML IM ONCE 301 MG IM (13:30)
[2024-04-25 13:36] LABS: Influenza A PCR NEGATIVE (Negative); Influenza B PCR NEGATIVE (Negative); Resp Syncy Virus RNA Qual PCR NEGATIVE (Negative); SARS COV2 PCR INHOUSE NEGATIVE (Negative)
--- NOTE | 2024-04-25 13:55 | MHC.EDTECH ---
pt was placed on 2L O2 with verbal orders from PEDRO PABLO Cooper d/t pt destating in low 80s when sleeping
--- NOTE | 2024-04-25 14:25 | PC.NURSE ---
Pt comes to ED today with c/o ETOH withdrawal and seeking detox services. Pt reports he uses ETOH daily: 20 beers and 1/2 pint liquor. States he has a significant history of ETOH withdrawal; including seizures, inpatient care and intubation. Pt states he wishes to get sober. Elevated CIWA on arrival and treated with PO Ativan from PIT provider. A&Ox3, VSS, afebrile. 20g placed to L wrist. Seizure pads placed on bed. Phenobarb protocol initiated. Pending admission.
--- NOTE | 2024-04-25 15:15 | PM.IMHP ---
History of Present Illness Date of Service: 04/25/24 Attending physician on admission: Damon Feldman Chief Complaint: etoh intoxication This is a 63 year old male with h/o AUD with history of severe alcohol withdrawal and alcohol withdrawal seizures, who presents to the ED seeking detox. In the emergency department his alcohol level was 246. He was given a dose of oral Ativan and then started on phenobarbital protocol and admission was requested for management of alcohol withdrawal. On exam the patient is somnolent but arousable however appears acutely intoxicated slurring his speech and immediately falling back asleep before fully answering questions. History is unable to be obtained from the patient directly- per chart review patient reportedly has been drinking 20 beers and a half a pt of vodka daily with his last drink prior to arrival in the emergency department. Supposedly he had a seizure at home a few days ago but was able to drink alcohol to prevent further seizures. Review of Systems Review of Systems: unable to be obtained [facility] Medical History Alcohol use disorder, severe, dependence Alcohol abuse Hyperlipidemia Depression with anxiety Diabetes Hypertension Social History Household Members: None Household Members Other:: Self with a dog{ Parker} Housing: House Do you presently have visiting nurse or other home services: No Alcohol intake: current Alcohol intake frequency: 3 or more drinks per day Alcohol type: beer and hard liquor Comment: sitter 1:1 Patient Tobacco Use Status: Former Tobacco user Smoked in Last 30 Days: No Second Hand Smoke Exposure: No Use of substances other than those prescribed or required for medical reasons: No Substance Use Type: Marijuana Currently Displaying Signs/Symptoms of Drug Intoxication Withdrawal: No Have you been hit, kicked, punched, or otherwise hurt by someone within the past year? If so, by whom?: No Do you feel safe in your current relationship?: Yes Is there a partner from a previous relationship who is making you feel unsafe now?: No Are you made to feel afraid or neglected: No Advance Directives: Yes Advance Directives on File: Yes Advance Directives Date on File: 07/30/23 Do you have a plan to hurt others: No Plan Recently lost weight without trying: No Nutrition Risks: On aspiration precautions service: Yes Meds Allergies Allergy/AdvReac Type Severity Reaction Status Date / Time No Known Allergies Allergy Verified 04/25/24 12:19 Active Medications: Current Medications Thiamine HCl 100 mg/ Sodium (Chloride) 101 mls @ 202 mls/hr IV DAILY ANA Pantoprazole Sodium (Pantoprazole Sodium 40 Mg/10 Ml Vial) 40 mg IVPUSH DAILY@0630 ANA Pharmacy Consult (Consult Rx Etoh Phenob Im/Po) 1 each MISCELLANE ONCE PRN; Protocol PRN Reason: Consult order Phenobarbital (Phenobarbital 30 Mg Tablet) 60 mg PO BID [facility]; Protocol Stop: 04/27/24 21:01 Phenobarbital (Phenobarbital 30 Mg Tablet) 30 mg PO BID ANA; Protocol Stop: 04/29/24 21:01 Phenobarbital (Phenobarbital 30 Mg Tablet) 30 mg PO DAILY [facility]; Protocol Stop: 05/01/24 09:01 Phenobarbital Sodium (Phenobarbital Sodium 130 Mg/Ml Vial Im Q3hx2) 226 mg IM Q3H ANA; Protocol Stop: 04/25/24 20:01 Home Medications ?Medication ?Instructions ?Recorded ?Confirmed ?Last Taken ?Type atorvastatin 20 mg tablet 10 mg PO BEDTIME 11/21/22 04/25/24 07/16/23 History buprenorphine 8 mg-naloxone 2 mg 2 film buccal DAILY 11/21/22 04/25/24 07/17/23 History sublingual film (Suboxone) buspirone 5 mg tablet 5 mg PO BID 11/21/22 04/25/24 07/17/23 History finasteride 5 mg tablet 5 mg PO DAILY 11/21/22 04/25/24 07/17/23 History hydroxyzine HCl 25 mg tablet 25 mg PO BEDTIME PRN Sleep 11/21/22 04/25/24 07/16/23 History melatonin 5 mg tablet 5 mg PO BEDTIME 11/21/22 04/25/24 07/17/23 History metformin 1,000 mg tablet 1,000 mg PO DAILY 11/21/22 04/25/24 07/17/23 History tamsulosin 0.4 mg capsule 0.8 mg PO BEDTIME 11/21/22 04/25/24 07/16/23 History trazodone 100 mg tablet 200 mg PO BEDTIME PRN Insomnia 11/21/22 04/25/24 07/16/23 History cyclobenzaprine 10 mg tablet 10 mg PO TID PRN Muscle Spasm 01/31/23 04/25/24 Unknown History duloxetine 60 mg capsule,delayed 60 mg PO DAILY 07/17/23 04/25/24 07/17/23 History release sprinkle testosterone 1.62 % (20.25 mg/1.25 2 packet transdermal DAILY 07/17/23 04/25/24 07/17/23 History gram) transdermal gel packet vitamin B complex 1 tab PO Q48H 07/17/23 04/25/24 07/17/23 History cholecalciferol (vitamin D3) 50 50 mcg PO DAILY 11/29/23 04/25/24 Unknown History mcg (2,000 unit) tablet (Vitamin D3) magnesium oxide 400 mg PO DAILY 11/29/23 04/25/24 Unknown History metoprolol succinate 25 mg 25 mg PO BEDTIME 11/29/23 04/25/24 Unknown History tablet,extended release 24 hr polyethylene glycol 3350 17 17 g PO DAILY 11/29/23 04/25/24 Unknown History gram/dose oral powder sennosides 8.6 mg tablet (senna) 17.2 mg PO DAILY 11/29/23 04/25/24 Unknown History tadalafil 20 mg tablet 20 mg PO Q3D PRN Erectile 11/29/23 04/25/24 Unknown History Dysfunction carboxymethylcellulose sodium 0.5 1 drp ophthalmic (eye) QID 04/25/24 04/25/24 Unknown History % eye drops gabapentin 300 mg capsule 900 mg PO TID PRN Pain 04/25/24 04/25/24 Unknown History psyllium 1 tsp PO DAILY PRN Constipation 04/25/24 04/25/24 Unknown History Physical Exam Vital Signs and Narrative: Vital Signs: Last Vital Signs Temp 97.7 F 04/25/24 14:55 Pulse 115 H 04/25/24 14:55 Resp 22 H 04/25/24 14:55 BP 122/99 H 04/25/24 14:55 Pulse Ox 94 04/25/24 14:55 O2 Del Method Nasal Cannula 04/25/24 14:55 O2 Flow Rate 2 04/25/24 14:55 BMI result Body Mass Index 32.7 Const: Other: solmnolent, arousable to painful stimuli; open his eyes and starts to answer questions before falling back asleep Nutritional Appearance: overweight Orientation/consciousness: oriented to person and oriented to place Resp: Effort & Inspection: normal respiratory effort, no respiratory distress and no use of accessory muscles Cardio: Rate: tachycardic GI: Inspection: No distended Palpation (GI): Soft to palpation and nontender Neuro: Other: solmnolent; awakens briefly and moves all extremities; was able to state that he was at [facility] General: oriented to person and oriented to place Extrem: General: Yes no pedal edema Results Labs 04/26/24 06:18 04/28/24 10:14 Labs: Laboratory Results - last 24 hr 04/25/24 12:50 MCV 89.3 MCH 31.1 MCHC 34.8 RDW 14.2 Plt Count 225 D MPV 10.0 Immature Gran % (Auto) 0.3 Neut % (Auto) 59.8 Lymph % (Auto) 32.3 [place] % (Auto) 6.0 Eos % (Auto) 0.4 Baso % (Auto) 1.2 Lymph # (Auto) 2.4 [place] # (Auto) 0.5 Eos # (Auto) 0.0 Baso # (Auto) 0.1 Abs Immat Gran (auto) 0.02 Absolute Neuts (auto) 4.5 Absolute Nucleated RBC 0.000 Nucleated RBC % (auto) 0.0 Anion Gap 20 Estim Creat Clear Calc 119.7 Estimated GFR > 60 Random Glucose 102 Calcium 9.0 D Magnesium 2.1 Total Bilirubin 0.3 AST 30 ALT 17 Alkaline Phosphatase 69 Total Protein 7.6 Albumin 4.2 Ethyl Alcohol 246 Influenza Type A (PCR) NEGATIVE Influenza Type B (PCR) NEGATIVE RSV RNA Qual (PCR) NEGATIVE SARS-CoV-2 RNA (RT-PCR) NEGATIVE Assessment and Plan (1) Alcohol withdrawal syndrome: Status: Acute Plan This is a 63-year-old male with history of alcohol use disorder with history of alcohol withdrawal, alcohol withdrawal seizures and multiple admissions for alcohol withdrawal, opioid use disorder on Suboxone, history of aspiration, anxiety, depression, diabetes who presents to the emergency department acutely intoxicated seeking detox Alcohol use disorder with acute alcohol intoxication and impending alcohol withdrawal History of severe alcohol withdrawal in the past with history of alcohol withdrawal seizures and multiple admissions requiring ICU level care Started on phenobarbital in the emergency department, continue phenobarbitol protocol; follow CIWA NPO until awake enough to safely take po IV thiamine, po folate when able to take po aspiration, seizure precautions empiric IV PPI, IVF addiction medicine consult when patient able to participate lytes wnl at this time toxic metabolic encephalopathy due to etoh intoxication, medication DM hold metformin SSI, POCs diabetic diet when awake enough to tolerate safely for chronic medical conditions including OUD, HTN, bph hold all oral medications until safetly able to take po med rec pending at this time. DVT ppx - lovenox patient requires at least two midnight stay in the hospital for management of alcohol withdrawal Quality Stroke Does the patient have a stroke diagnosis?: No VTE Prior VTE?: No VTE Risk Level:: Medical - moderate - high VTE Device Contraindication: N/A - Device Ordered VTE Drug Contraindication: N/A - Med Ordered
[2024-04-25] MEDS: Lactated Ringers 1,000 ML 100 ML IVCONT (15:55)
[2024-04-25] MEDS: Pantoprazole Sodium 40 MG/10 ML VIAL IVPUSH (16:16)
[2024-04-25] MEDS: Enoxaparin Sodium 40 MG/0.4 ML SYRINGE SUBCUT (16:17)
[2024-04-25 16:35] LABS: Lipase 19 U/L (8-78)
--- NOTE | 2024-04-25 16:50 | PHA.MEDREC ---
Addendum entered by Brittanie Albarran RPh 04/25/24 17:00: Med rec was reviewed by [facility]. Noted on list from [place] that acamprosate is on hold and duloxetine dose was changed from 120 mg to 60 mg on 12/27/2023. Original Note: Pharmacy Consult ? Medication Reconciliation Pharmacy has completed the medication reconciliation. Faxed med list from [place].
[2024-04-25 16:52] LABS: Glucose, Whole Blood 101 mg/dL (60-115)
[2024-04-25] MEDS: PHENobarbitaL sodium 130 MG/ML VIAL IM Q3Hx2 226 MG IM ×2 (16:56→20:59)
[2024-04-25 20:15] LABS: Glucose, Whole Blood 96 mg/dL (60-115)
[2024-04-25] MEDS: PHENobarbitaL sodium 130 MG/ML VIAL 260 MG IM (23:50)
[2024-04-26] MEDS: Haloperidol Lactate 5 MG/ML VIAL IM (00:55)
[2024-04-26 01:52] LABS: Appearance Urine Clear; Color Urine Dark Yellow; Glucose Urine UA Negative (Negative); Leukocyte Esterase Urine Negative (Negative); Nitrite Urine Negative (Negative); Specific Gravity - Urine 1.025 (1.005-1.025); UMIC TRIGGER UACC YES; Urine Blood Negative (Negative); Urine Ketones 15 mg/dL (Negative); Urine Protein 30 (1+) mg/dL (Neg-Trace)
[2024-04-26 01:57] LABS: Bacteria Urine None Seen (None Seen); Hyaline Casts Urine 0-2 /LPF (0-2); RBC Urine 0-2 /HPF (0-2); Squamous Epithelial Cell Urine 0-2 /HPF (0-2); WBC Urine 0-5 /HPF (0-5)
[2024-04-26] MEDS: LORazepam 2 MG/ML VIAL IVPUSH (02:06)
[2024-04-26] MEDS: Lactated Ringers 1,000 ML 100 ML IVCONT (02:06)
[2024-04-26 02:10] LABS: Amphetamine Screen Urine Not Detected (Not Detect); Barbiturates, Urine POSITIVE (Not Detect); Benzodiazepines Screen Urine Not Detected (Not Detect); Buprenorphine Scr Positive (Not Detect); Cannabinoid Screen Urine POSITIVE (Not Detect); Cocaine Screen Urine Not Detected (Not Detect); Fentanyl, urine Not Detected (Not Detect); Methadone Screen, Urine Not Detected (Not Detect); Opiate Screen Urine Not Detected (Not Detect); Oxycodone Screen Urine Not Detected (Not Detect); Phencyclidine Screen Urine Not Detected (Not Detect)
[2024-04-26 03:38] VITALS: BP 142/83; PULSE 118; RESP 18; TEMP 36.7; O2SAT 93
[2024-04-26] MEDS: Pantoprazole Sodium 40 MG/10 ML VIAL IVPUSH (05:10)
--- NOTE | 2024-04-26 06:38 | PC.NURSE ---
Pt with elevated CIWA, extra dose of IM pheno administered with minimal effect. Pt asking for ativan, as pt states that's what they gave me the last time and I didn't feel this bad . Dr Doshi notified, IM dose of Haldol ordered and administered with minimal effect. Pt continues to have mod/severe tremors and stating I feel terrible . CIWA remained elevated, one time dose of IV ativan ordered and administered with positive effect. Pt vitals stable, ST on tele all night. Pt slept most of the night after ativan administered.
[2024-04-26 07:16] VITALS: BP 172/92; PULSE 105; RESP 18; TEMP 36.5; O2SAT 97
[2024-04-26] MEDS: Nicotine 14 MG PATCH.TD24 TRANSDERMA (07:36)
[2024-04-26] MEDS: Thiamine HCL 100 MG in 0.9 % Sodium Chloride 100 ML 202 MG IV (07:37)
[2024-04-26] MEDS: 0.9 % Sodium Chloride Flush 3 ML SYRINGE IVFLUSH ×3 (07:38→19:49)
[2024-04-26 07:52] LABS: Blood Urea Nitrogen 13 mg/dL (9-16); Calcium 8.9 mg/dL (8.4-10.2); Creatinine Clr Calc Pharmacy 112.5; Estimated Glomerular Filt Rate > 60; Glucose Random 141 mg/dL (60-115)
[2024-04-26 08:11] LABS: Anion Gap 15 (12-20); Carbon Dioxide 24 mmol/L (22-29); Chloride 106 mmol/L (96-108); Potassium 4.3 mmol/L (3.3-5.1); Sodium 141 mmol/L (135-145)
[2024-04-26 08:13] LABS: Hematocrit 44.2 % (42.0-52.0); Mean Corpuscular HGB Conc 33.9 g/dl (31.0-36.0); Mean Corpuscular Hemoglobin 30.9 pg (27.0-33.0); Mean Corpuscular Volume 91.1 fL (80.0-98.0); Mean Platelet Volume 10.9 fL (9.4-12.4); Platelet Count 195 X10*3/uL (160-400); Red Blood Count 4.85 X10*6/uL (4.60-5.80); Red Cell Distribution Width 14.4 % (11.0-16.0)
[2024-04-26] MEDS: LORazepam 1 MG TABLET PO ×4 (08:57→19:48)
[2024-04-26] MEDS: PHENobarbitaL 30 MG TABLET 60 MG PO ×2 (08:57→21:11)
[2024-04-26] MEDS: Cholecalciferol (Vitamin D3) 25 MCG TABLET 50 MCG PO (08:58)
[2024-04-26] MEDS: Buprenorphine/Naloxone 8/2 mg FILM 2 FILM BUCCAL (08:58)
[2024-04-26] MEDS: busPIRone HCl 5 MG TABLET PO ×2 (08:58→21:11)
[2024-04-26] MEDS: Finasteride 5 MG TABLET PO (08:58)
[2024-04-26] MEDS: DULoxetine HCl 60 MG CAPSULE.DR PO (08:58)
[2024-04-26] MEDS: Multivitamin TABLET 1 TAB PO (08:58)
[2024-04-26] MEDS: Magnesium Oxide 400 MG TABLET PO (08:58)
--- NOTE | 2024-04-26 09:29 | MHC.CM.PN ---
PT REPORTS HE LIVES ALONE AND IS INDEPENDENT WITH CARE HE HAS NO SERVICES AND NO DME HCP ON FILE AND VERIFIED PCP: BONITA LANGSTON AT [facility] IN [place] DCP: HOME VIA PRIVATE TRANSPORT
[2024-04-26 11:24] VITALS: BP 178/95; PULSE 115; RESP 18; TEMP 37; O2SAT 95
[2024-04-26 11:33] LABS: Glucose, Whole Blood 124 mg/dL (60-115)
[2024-04-26] MEDS: Nicotine Polacrilex 2 MG GUM BUCCAL ×5 (13:16→22:59)
--- NOTE | 2024-04-26 13:27 | HO.PM.IMPN ---
Subjective Subjective Date of Service: 04/26/24 Interval History: seen and examined this morning patient awake, alert and oriented requesting ativan, states it is more effective for him Review of Systems Review of Systems: Yes all other systems are reviewed and are negative Constitutional Constitutional: Denies chills and Denies fever(s) Cardiovascular Cardiovascular: Denies chest pain, Denies palpitations and Denies dyspnea Respiratory Respiratory: Denies cough and Denies dyspnea Gastrointestinal Gastrointestinal: Denies abdominal pain, Denies nausea and Denies vomiting Endocrine Endocrine: Denies palpitations Physical Exam Vital Signs: Vital Signs: Last Vital Signs Temp 98.6 F 04/26/24 11:24 Pulse 115 H 04/26/24 11:24 Resp 18 04/26/24 11:24 BP 178/95 H 04/26/24 11:24 Pulse Ox 95 04/26/24 11:24 O2 Del Method Nasal Cannula 04/26/24 11:24 O2 Flow Rate 2 04/26/24 11:24 BMI result Body Mass Index 32.6 Const: General: no acute distress, alert, awake and Physically active Nutritional Appearance: obese Orientation/consciousness: patient oriented x3 Resp: Effort & Inspection: normal respiratory effort, able to speak in complete sentences, no respiratory distress and no use of accessory muscles Auscultation: clear to auscultation bilaterally Cardio: Rate: regular rate GI: Inspection: No distended Palpation (GI): Soft to palpation and nontender Neuro: General: patient oriented x3, moves all extremities and CN's II-XI intact bilaterally Extrem: General: Yes no pedal edema Objective Data Active Medications Acetaminophen (Acetaminophen 325 Mg Tablet) 650 mg PO Q6H PRN PRN Reason: Pain, Mild 1-3,fever,headache Artificial Tears (Artificial Tears 15 Ml Drops) 1 drop EYE-BOTH QID [facility] Last Admin: 04/26/24 11:00 Dose: Not Given Documented By: KRISTIAN Non-Admin Reason: Patient Asleep Atorvastatin Calcium (Atorvastatin Calcium 10 Mg Tablet) 10 mg PO BEDTIME [facility] Buprenorphine/Naloxone (Buprenorphine/Naloxone 8/2 Mg Film) 2 film BUCCAL DAILY [facility] Last Admin: 04/26/24 08:58 Dose: 2 film Documented By: KRISTIAN Buspirone HCl (Buspirone Hcl 5 Mg Tablet) 5 mg PO BID [facility] Last Admin: 04/26/24 08:58 Dose: 5 mg Documented By: KRISTIAN Calcium Carbonate (Calcium Carbonate 750 Mg Tab.Chew) 750 mg PO Q4H PRN PRN Reason: Heartburn Dextrose (Dextrose 50 % 25 Gm/50 Ml Syringe) 25 gm IVPUSH Q15M PRN; Protocol PRN Reason: per Hypoglycemia Standing Ord. Duloxetine HCl (Duloxetine Hcl 60 Mg Capsule.Dr) 60 mg PO DAILY [facility] Last Admin: 04/26/24 08:58 Dose: 60 mg Documented By: KRISTIAN Enoxaparin Sodium (Enoxaparin Sodium 40 Mg/0.4 Ml Syringe) 40 mg SUBCUT Q24H [facility] Last Admin: 04/25/24 16:17 Dose: 40 mg Documented By: BAM Finasteride (Finasteride 5 Mg Tablet) 5 mg PO DAILY [facility] Last Admin: 04/26/24 08:58 Dose: 5 mg Documented By: KRISTIAN Gabapentin (Gabapentin 300 Mg Capsule) 600 mg PO TID [facility] Glucose (Glucose Gel 15 Gm Gel..Gram.) 15 gm PO Q15M PRN; Protocol PRN Reason: per Hypoglycemia Standing Ord. Thiamine HCl 100 mg/ Sodium (Chloride) 101 mls @ 202 mls/hr IV DAILY [facility] Last Infusion: 04/26/24 08:39 Dose: Infused Documented By: KRISTIAN Lactated Ringer's (Lr) 1,000 mls @ 100 mls/hr IVCONT .Q10H [facility] Last Admin: 04/26/24 02:06 Dose: 100 mls/hr Documented By: JESSICA Insulin Human Lispro (Insulin Lispro 100 Unit/Ml 3 Ml Vial) 0 unit SUBCUT QIDACHS [facility]; Protocol Last Admin: 04/26/24 12:48 Dose: Not Given Documented By: KRISTIAN Non-Admin Reason: No Insulin Coverage Lorazepam (Lorazepam 1 Mg Tablet) 1 mg PO Q4H PRN PRN Reason: Breakthrough alcohol withdrawa Last Admin: 04/26/24 12:06 Dose: 1 mg Documented By: KRISTIAN Magnesium Hydroxide (Milk Of Magnesia 30 Ml Oral.Susp) 30 ml PO DAILY PRN PRN Reason: Constipation Magnesium Oxide (Magnesium Oxide 400 Mg Tablet) 400 mg PO DAILY [facility] Last Admin: 04/26/24 08:58 Dose: 400 mg Documented By: KRISTIAN Metoprolol Succinate (Metoprolol Succinate Er 25 Mg Tab.Er.24h) 25 mg PO BEDTIME [facility]; Protocol Multivitamins/Vitamin C (Multivitamin Tablet) 1 tab PO Q48H [facility] Last Admin: 04/26/24 08:58 Dose: 1 tab Documented By: KRISTIAN Nicotine (Nicotine 21 Mg Patch.Td24) 21 mg TRANSDERMA DAILY [facility] Nicotine Polacrilex (Nicotine Polacrilex 2 Mg Gum) 2 mg BUCCAL Q2H PRN PRN Reason: Nicotine Cravings Last Admin: 04/26/24 13:16 Dose: 2 mg Documented By: KRISTIAN Pantoprazole Sodium (Pantoprazole Sodium 40 Mg/10 Ml Vial) 40 mg IVPUSH DAILY@0630 [facility] Last Admin: 04/26/24 05:10 Dose: 40 mg Documented By: JESSICA Pharmacy Consult (Consult Rx Etoh Phenob Im/Po) 1 each MISCELLANE ONCE PRN; Protocol PRN Reason: Consult order Phenobarbital (Phenobarbital 30 Mg Tablet) 60 mg PO BID [facility]; Protocol Stop: 04/27/24 21:01 Last Admin: 04/26/24 08:57 Dose: 60 mg Documented By: KRISTIAN Phenobarbital (Phenobarbital 30 Mg Tablet) 30 mg PO BID [facility]; Protocol Stop: 04/29/24 21:01 Phenobarbital (Phenobarbital 30 Mg Tablet) 30 mg PO DAILY [facility]; Protocol Stop: 05/01/24 09:01 Polyethylene Glycol (Polyethylene Glycol 3350 17 Gm Powd.Pack) 17 gm PO DAILY [facility] Last Admin: 04/26/24 11:00 Dose: Not Given Documented By: KRISTIAN Non-Admin Reason: Patient Refused Senna (Sennosides 8.6 Mg Tablet) 17.2 mg PO DAILY [facility] Last Admin: 04/26/24 11:00 Dose: Not Given Documented By: KRISTIAN Non-Admin Reason: Patient Refused Sodium Chloride (0.9 % Sodium Chloride Flush 3 Ml Syringe) 3 ml IVFLUSH QSHIFT [facility] Last Admin: 04/26/24 07:38 Dose: 3 ml Documented By: KRISTIAN Tamsulosin HCl (Tamsulosin Hcl 0.4 Mg Capsule) 0.8 mg PO BEDTIME [facility] Vitamin D (Cholecalciferol (Vitamin D3) 25 Mcg Tablet) 50 mcg PO DAILY [facility] Last Admin: 04/26/24 08:58 Dose: 50 mcg Documented By: KRISTIAN Labs 04/26/24 06:18 04/26/24 06:18 Labs: Laboratory Results - last 24 hr 04/25/24 04/25/24 04/25/24 12:50 16:48 20:06 MCV MCH MCHC RDW Plt Count MPV Absolute Nucleated RBC Nucleated RBC % (auto) Hold Purple Top Anion Gap Estim Creat Clear Calc Estimated GFR POC Glucose 101 96 Random Glucose Calcium Magnesium Lipase 19 Urine Color Urine Appearance Urine pH Ur Specific [place] Urine Protein Urine Glucose (UA) Urine Ketones Urine Blood Urine Nitrite Ur Leukocyte Esterase Urine RBC Urine WBC Ur Squamous Epith Cells Urine Bacteria Hyaline Casts Urine Opiates Screen Ur Buprenorphine Scrn Ur Oxycodone Screen Urine Methadone Screen Urine Fentanyl Screen Ur Barbiturates Screen Ur Phencyclidine Scrn Ur Amphetamines Screen U Benzodiazepines Scrn Urine Cocaine Screen U Marijuana (THC) Screen Influenza Type A (PCR) NEGATIVE Influenza Type B (PCR) NEGATIVE RSV RNA Qual (PCR) NEGATIVE SARS-CoV-2 RNA (RT-PCR) NEGATIVE 04/26/24 04/26/24 04/26/24 01:42 06:18 11:28 MCV 91.1 MCH 30.9 MCHC 33.9 RDW 14.4 Plt Count 195 MPV 10.9 Absolute Nucleated RBC 0.000 Nucleated RBC % (auto) 0.0 Hold Purple Top SEE NOTE Anion Gap 15 Estim Creat Clear Calc 112.5 Estimated GFR > 60 POC Glucose 124 H Random Glucose 141 H Calcium 8.9 Magnesium 2.0 Lipase Urine Color Dark Yellow Urine Appearance Clear Urine pH 6.0 Ur Specific [place] 1.025 Urine Protein 30 (1+) H Urine Glucose (UA) Negative Urine Ketones 15 Urine Blood Negative Urine Nitrite Negative Ur Leukocyte Esterase Negative Urine RBC 0-2 Urine WBC 0-5 Ur Squamous Epith Cells 0-2 Urine Bacteria None Seen Hyaline Casts 0-2 Urine Opiates Screen Not Detected Ur Buprenorphine Scrn Positive H Ur Oxycodone Screen Not Detected Urine Methadone Screen Not Detected Urine Fentanyl Screen Not Detected Ur Barbiturates Screen POSITIVE H Ur Phencyclidine Scrn Not Detected Ur Amphetamines Screen Not Detected U Benzodiazepines Scrn Not Detected Urine Cocaine Screen Not Detected U Marijuana (THC) Screen POSITIVE H Influenza Type A (PCR) Influenza Type B (PCR) RSV RNA Qual (PCR) SARS-CoV-2 RNA (RT-PCR) Assessment and Plan (1) Alcohol withdrawal syndrome: Status: Acute Plan This is a 63-year-old male with history of alcohol use disorder with history of alcohol withdrawal, alcohol withdrawal seizures and multiple admissions for alcohol withdrawal, opioid use disorder on Suboxone, history of aspiration, anxiety, depression, diabetes who presents to the emergency department acutely intoxicated seeking detox Alcohol use disorder with acute alcohol intoxication and impending alcohol withdrawal History of severe alcohol withdrawal in the past with history of alcohol withdrawal seizures and multiple admissions requiring ICU level care Started on phenobarbital in the emergency department, continue phenobarbitol protocol; follow CIWA prn ativan for breakthrough symptoms will change IV thiamine to po now that pt awake for po, po folate, po magnesium aspiration, seizure precautions empiric IV PPI, stop IVF addiction medicine consult lynahid wnl at this time toxic metabolic encephalopathy due to etoh intoxication, medication resolved DM hold metformin SSI, POCs diabetic diet OUD continue suboxone mood continue buspirone, duloxetine neuropathy will resume gabapentin at reduced dose to prevent withdrawal but monitor for sedation with etoh withdrawal medications, if remains stable can increase back to home dose home dose listed as prn but pt takes scheduled bph finasteride, flomax HTN resume metoprolol DVT ppx - lovenox patient requires at least two midnight stay in the hospital for management of alcohol withdrawal Quality Stroke Does the patient have a stroke diagnosis?: No VTE Prior VTE?: No VTE Risk Level:: Medical - moderate - high VTE Device Contraindication: N/A - Device Ordered VTE Drug Contraindication: N/A - Med Ordered
--- NOTE | 2024-04-26 14:10 | HO.ADDICT_ITS ---
History of Present Illness Date of Service: 04/26/2024 Chief Complaint: etoh withdrawl Reason for Consult: AUD Sources of Information: patient interviewed and chart reviewed HPI Narrative: Patient is a 63 year old male medically admitted with acute alcohol withdrawal [place] [facility] [place] [facility] via previous admissions for acute alcohol withdrawal, with some necessitating ICU admission. History of alcohol withdrawal seizures. Seen in room 485, laying in bed, wakes to voice. Reporting he has been drinking way too much (admission note reports 20 beers daily with rum as well) Phenobarbital protocol has been initiated with PRN lorazepam for ongoing withdrawal sx He appears tremulous, but otherwise, not restless or diaphoretic. He is alert and oriented when speaking to t/w. He is requesting increase in lorazepam. Also hx of OUD, [facility] 16mg QD. Review of Systems Constitutional: Reports as per HPI Gastrointestinal: Denies diarrhea, Denies nausea and Denies vomiting Psychiatric: Reports anxiety Diagnostics Vital Signs (24Hr): Vital Signs - 24 hr 04/25/24 14:23 04/25/24 14:55 04/25/24 16:57 Temperature 97.7 F Pulse Rate 111 H 115 H 98 Respiratory Rate 22 H 22 H 13 Blood Pressure 124/76 122/99 H 99/77 Pulse Oximetry 93 94 96 Oxygen Delivery Method Nasal Cannula Nasal Cannula Oxymask Oxygen Flow Rate 2 2 4 04/25/24 17:25 04/25/24 18:23 04/25/24 18:55 Temperature 97.6 F 97.6 F Pulse Rate 108 H 116 H 102 H Respiratory Rate 20 22 H 18 Blood Pressure 106/76 113/70 139/82 Pulse Oximetry 97 97 96 Oxygen Delivery Method Oxymask Room Air Non-Rebreather Mask Oxygen Flow Rate 4 04/25/24 23:50 04/26/24 03:38 04/26/24 07:16 Temperature 97.4 F 98.0 F 97.7 F Pulse Rate 116 H 118 H 105 H Respiratory Rate 20 18 18 Blood Pressure 134/87 142/83 H 172/92 H Pulse Oximetry 93 93 97 Oxygen Delivery Method Room Air Room Air Oxygen Flow Rate 04/26/24 11:24 Temperature 98.6 F Pulse Rate 115 H Respiratory Rate 18 Blood Pressure 178/95 H Pulse Oximetry 95 Oxygen Delivery Method Nasal Cannula Oxygen Flow Rate 2 BMI result Body Mass Index 32.6 Labs 04/26/24 06:18 04/26/24 06:18 Labs: Laboratory Results - last 48 hr 04/25/24 04/25/24 04/25/24 12:50 16:48 20:06 WBC 7.6 RBC 5.05 Hgb 15.7 Hct 45.1 MCV 89.3 MCH 31.1 MCHC 34.8 RDW 14.2 Plt Count 225 D MPV 10.0 Immature Gran % (Auto) 0.3 Neut % (Auto) 59.8 Lymph % (Auto) 32.3 [place] % (Auto) 6.0 Eos % (Auto) 0.4 Baso % (Auto) 1.2 Lymph # (Auto) 2.4 [place] # (Auto) 0.5 Eos # (Auto) 0.0 Baso # (Auto) 0.1 Abs Immat Gran (auto) 0.02 Absolute Neuts (auto) 4.5 Absolute Nucleated RBC 0.000 Nucleated RBC % (auto) 0.0 Hold Purple Top Sodium 141 Potassium 4.1 Chloride 104 Carbon Dioxide 21 L Anion Gap 20 BUN 7 L Creatinine 0.74 Estim Creat Clear Calc 119.7 Estimated GFR > 60 POC Glucose 101 96 Random Glucose 102 Calcium 9.0 D Magnesium 2.1 Total Bilirubin 0.3 AST 30 ALT 17 Alkaline Phosphatase 69 Total Protein 7.6 Albumin 4.2 Lipase 19 Urine Color Urine Appearance Urine pH Ur Specific [place] Urine Protein Urine Glucose (UA) Urine Ketones Urine Blood Urine Nitrite Ur Leukocyte Esterase Urine RBC Urine WBC Ur Squamous Epith Cells Urine Bacteria Hyaline Casts Urine Opiates Screen Ur Buprenorphine Scrn Ur Oxycodone Screen Urine Methadone Screen Urine Fentanyl Screen Ur Barbiturates Screen Ur Phencyclidine Scrn Ur Amphetamines Screen U Benzodiazepines Scrn Urine Cocaine Screen U Marijuana (THC) Screen Ethyl Alcohol 246 Influenza Type A (PCR) NEGATIVE Influenza Type B (PCR) NEGATIVE RSV RNA Qual (PCR) NEGATIVE SARS-CoV-2 RNA (RT-PCR) NEGATIVE 04/26/24 04/26/24 04/26/24 01:42 06:18 11:28 WBC 11.0 H RBC 4.85 Hgb 15.0 Hct 44.2 MCV 91.1 MCH 30.9 MCHC 33.9 RDW 14.4 Plt Count 195 MPV 10.9 Immature Gran % (Auto) Neut % (Auto) Lymph % (Auto) [place] % (Auto) Eos % (Auto) Baso % (Auto) Lymph # (Auto) [place] # (Auto) Eos # (Auto) Baso # (Auto) Abs Immat Gran (auto) Absolute Neuts (auto) Absolute Nucleated RBC 0.000 Nucleated RBC % (auto) 0.0 Hold Purple Top SEE NOTE Sodium 141 Potassium 4.3 Chloride 106 Carbon Dioxide 24 Anion Gap 15 BUN 13 Creatinine 0.81 Estim Creat Clear Calc 112.5 Estimated GFR > 60 POC Glucose 124 H Random Glucose 141 H Calcium 8.9 Magnesium 2.0 Total Bilirubin AST ALT Alkaline Phosphatase Total Protein Albumin Lipase Urine Color Dark Yellow Urine Appearance Clear Urine pH 6.0 Ur Specific [place] 1.025 Urine Protein 30 (1+) H Urine Glucose (UA) Negative Urine Ketones 15 Urine Blood Negative Urine Nitrite Negative Ur Leukocyte Esterase Negative Urine RBC 0-2 Urine WBC 0-5 Ur Squamous Epith Cells 0-2 Urine Bacteria None Seen Hyaline Casts 0-2 Urine Opiates Screen Not Detected Ur Buprenorphine Scrn Positive H Ur Oxycodone Screen Not Detected Urine Methadone Screen Not Detected Urine Fentanyl Screen Not Detected Ur Barbiturates Screen POSITIVE H Ur Phencyclidine Scrn Not Detected Ur Amphetamines Screen Not Detected U Benzodiazepines Scrn Not Detected Urine Cocaine Screen Not Detected U Marijuana (THC) Screen POSITIVE H Ethyl Alcohol Influenza Type A (PCR) Influenza Type B (PCR) RSV RNA Qual (PCR) SARS-CoV-2 RNA (RT-PCR) Mental Status Exam Mental Status Exam Patient Orientation: Person, Place, Time and Situation Level of Consciousness: Awake Patient Behavior: Appropriate Mood Description: Anxious Affect Description: Anxious Speech Pattern: Clear Thought Process: Intact Thought Content: positive for Intact Abnormal Motor Activity Signs and Symptoms: Tremors Judgement: Good Medications Medications Current Medications Acetaminophen (Acetaminophen 325 Mg Tablet) 650 mg PO Q6H PRN PRN Reason: Pain, Mild 1-3,fever,headache Artificial Tears (Artificial Tears 15 Ml Drops) 1 drop EYE-BOTH QID [facility] Last Admin: 04/26/24 11:00 Dose: Not Given Atorvastatin Calcium (Atorvastatin Calcium 10 Mg Tablet) 10 mg PO BEDTIME [facility] Buprenorphine/Naloxone (Buprenorphine/Naloxone 8/2 Mg Film) 2 film BUCCAL DAILY [facility] Last Admin: 04/26/24 08:58 Dose: 2 film Buspirone HCl (Buspirone Hcl 5 Mg Tablet) 5 mg PO BID [facility] Last Admin: 04/26/24 08:58 Dose: 5 mg Calcium Carbonate (Calcium Carbonate 750 Mg Tab.Chew) 750 mg PO Q4H PRN PRN Reason: Heartburn Dextrose (Dextrose 50 % 25 Gm/50 Ml Syringe) 25 gm IVPUSH Q15M PRN; Protocol PRN Reason: per Hypoglycemia Standing Ord. Duloxetine HCl (Duloxetine Hcl 60 Mg Capsule.Dr) 60 mg PO DAILY [facility] Last Admin: 04/26/24 08:58 Dose: 60 mg Enoxaparin Sodium (Enoxaparin Sodium 40 Mg/0.4 Ml Syringe) 40 mg SUBCUT Q24H [facility] Last Admin: 04/25/24 16:17 Dose: 40 mg Finasteride (Finasteride 5 Mg Tablet) 5 mg PO DAILY [facility] Last Admin: 04/26/24 08:58 Dose: 5 mg Folic Acid (Folic Acid 1 Mg Tablet) 1 mg PO DAILY [facility] Gabapentin (Gabapentin 300 Mg Capsule) 600 mg PO TID [facility] Glucose (Glucose Gel 15 Gm Gel..Gram.) 15 gm PO Q15M PRN; Protocol PRN Reason: per Hypoglycemia Standing Ord. Insulin Human Lispro (Insulin Lispro 100 Unit/Ml 3 Ml Vial) 0 unit SUBCUT QIDACHS [facility]; Protocol Last Admin: 04/26/24 12:48 Dose: Not Given Lorazepam (Lorazepam 1 Mg Tablet) 1 mg PO Q4H PRN PRN Reason: Breakthrough alcohol withdrawa Last Admin: 04/26/24 12:06 Dose: 1 mg Magnesium Hydroxide (Milk Of Magnesia 30 Ml Oral.Susp) 30 ml PO DAILY PRN PRN Reason: Constipation Magnesium Oxide (Magnesium Oxide 400 Mg Tablet) 400 mg PO DAILY [facility] Last Admin: 04/26/24 08:58 Dose: 400 mg Metoprolol Succinate (Metoprolol Succinate Er 25 Mg Tab.Er.24h) 25 mg PO BEDTIME [facility]; Protocol Multivitamins/Vitamin C (Multivitamin Tablet) 1 tab PO Q48H [facility] Last Admin: 04/26/24 08:58 Dose: 1 tab Nicotine (Nicotine 21 Mg Patch.Td24) 21 mg TRANSDERMA DAILY [facility] Nicotine Polacrilex (Nicotine Polacrilex 2 Mg Gum) 2 mg BUCCAL Q2H PRN PRN Reason: Nicotine Cravings Last Admin: 04/26/24 13:16 Dose: 2 mg Pantoprazole Sodium (Pantoprazole Sodium 40 Mg/10 Ml Vial) 40 mg IVPUSH DAILY@0630 [facility] Last Admin: 04/26/24 05:10 Dose: 40 mg Pharmacy Consult (Consult Rx Etoh Phenob Im/Po) 1 each MISCELLANE ONCE PRN; Protocol PRN Reason: Consult order Phenobarbital (Phenobarbital 30 Mg Tablet) 60 mg PO BID [facility]; Protocol Stop: 04/27/24 21:01 Last Admin: 04/26/24 08:57 Dose: 60 mg Phenobarbital (Phenobarbital 30 Mg Tablet) 30 mg PO BID [facility]; Protocol Stop: 04/29/24 21:01 Phenobarbital (Phenobarbital 30 Mg Tablet) 30 mg PO DAILY [facility]; Protocol Stop: 05/01/24 09:01 Polyethylene Glycol (Polyethylene Glycol 3350 17 Gm Powd.Pack) 17 gm PO DAILY [facility] Last Admin: 04/26/24 11:00 Dose: Not Given Senna (Sennosides 8.6 Mg Tablet) 17.2 mg PO DAILY [facility] Last Admin: 04/26/24 11:00 Dose: Not Given Sodium Chloride (0.9 % Sodium Chloride Flush 3 Ml Syringe) 3 ml IVFLUSH QSHIFT [facility] Last Admin: 04/26/24 07:38 Dose: 3 ml Tamsulosin HCl (Tamsulosin Hcl 0.4 Mg Capsule) 0.8 mg PO BEDTIME [facility] Thiamine HCl (Thiamine Hcl 100 Mg Tablet) 100 mg PO DAILY [facility] Vitamin D (Cholecalciferol (Vitamin D3) 25 Mcg Tablet) 50 mcg PO DAILY [facility] Last Admin: 04/26/24 08:58 Dose: 50 mcg Allergies Allergies Allergy/AdvReac Type Severity Reaction Status Date / Time No Known Allergies Allergy Verified 04/25/24 12:19 Assessment & Plan Assessment & Plan (1) Alcohol withdrawal syndrome: Status: Acute Code(s): F10.939 - Alcohol use, unspecified with withdrawal, unspecified Assessment and Plan: * Continue phenobarb * Continue PRN lorazepam--monitor CIWA and overall presentation due to history of withdrawal sz. May require higher doses, if so, continue to monitor level of sedation * will continue to follow Total time managing care of this patient today __30__ minutes. [facility] Past Medical History Medical History Alcohol use disorder, severe, dependence Alcohol abuse Hyperlipidemia Depression with anxiety Diabetes Hypertension Social History Social History Household Members: None Household Members Other:: Self with a dog{ Parker} Housing: House Do you presently have visiting nurse or other home services: No Alcohol intake: current Alcohol intake frequency: 3 or more drinks per day Alcohol type: beer and hard liquor Comment: sitter in place Patient Tobacco Use Status: Former Tobacco user Smoked in Last 30 Days: No Second Hand Smoke Exposure: No Use of substances other than those prescribed or required for medical reasons: No Substance Use Type: Marijuana Currently Displaying Signs/Symptoms of Drug Intoxication Withdrawal: No Have you been hit, kicked, punched, or otherwise hurt by someone within the past year? If so, by whom?: No Do you feel safe in your current relationship?: Yes Is there a partner from a previous relationship who is making you feel unsafe now?: No Are you made to feel afraid or neglected: No Advance Directives: Yes Advance Directives on File: Yes Advance Directives Date on File: 07/30/23 Do you have a plan to hurt others: No Plan Recently lost weight without trying: No Nutrition Risks: On aspiration precautions service: Yes
[2024-04-26] MEDS: Gabapentin 300 MG CAPSULE 600 MG PO ×2 (14:53→21:11)
[2024-04-26 15:19] VITALS: BP 144/94; PULSE 115; RESP 18; TEMP 36.8; O2SAT 96
[2024-04-26 15:32] LABS: Glucose, Whole Blood 173 mg/dL (60-115)
[2024-04-26] MEDS: Enoxaparin Sodium 40 MG/0.4 ML SYRINGE SUBCUT (15:44)
[2024-04-26] MEDS: Insulin Lispro 100 UNIT/ML 3 ML VIAL SUBCUT (16:06)
[2024-04-26 20:00] VITALS: BP 145/89; PULSE 102; RESP 20; TEMP 36.3; O2SAT 98
[2024-04-26 20:37] LABS: Glucose, Whole Blood 138 mg/dL (60-115)
[2024-04-26] MEDS: Metoprolol Succinate ER 25 MG TAB.ER.24H PO (21:10)
[2024-04-26] MEDS: Tamsulosin HCL 0.4 MG CAPSULE 0.8 MG PO (21:11)
[2024-04-26] MEDS: Atorvastatin Calcium 10 MG TABLET PO (21:11)
[2024-04-27] VITALS (8 sets, daily range): BP systolic 123–180; BP diastolic 79–100; PULSE 90–100; RESP 16–20; TEMP 36–36.8; O2SAT 93–100
[2024-04-27] MEDS: Nicotine Polacrilex 2 MG GUM BUCCAL ×6 (01:16→23:05)
[2024-04-27] MEDS: LORazepam 1 MG TABLET PO ×3 (01:37→11:36)
[2024-04-27] MEDS: Pantoprazole Sodium 40 MG/10 ML VIAL IVPUSH (05:58)
[2024-04-27] MEDS: Buprenorphine/Naloxone 8/2 mg FILM 2 FILM BUCCAL (07:29)
[2024-04-27] MEDS: PHENobarbitaL 30 MG TABLET 60 MG PO ×2 (07:29→20:02)
[2024-04-27] MEDS: Sennosides 8.6 MG TABLET 17.2 MG PO (07:29)
[2024-04-27] MEDS: Magnesium Oxide 400 MG TABLET PO (07:29)
[2024-04-27] MEDS: Cholecalciferol (Vitamin D3) 25 MCG TABLET 50 MCG PO (07:30)
[2024-04-27] MEDS: Folic Acid 1 MG TABLET PO (07:30)
[2024-04-27] MEDS: DULoxetine HCl 60 MG CAPSULE.DR PO (07:30)
[2024-04-27] MEDS: Thiamine HCL 100 MG TABLET PO (07:30)
[2024-04-27] MEDS: busPIRone HCl 5 MG TABLET PO ×2 (07:30→20:02)
[2024-04-27] MEDS: Finasteride 5 MG TABLET PO (07:30)
[2024-04-27] MEDS: Gabapentin 300 MG CAPSULE 600 MG PO ×3 (07:30→20:02)
[2024-04-27] MEDS: Nicotine 21 MG PATCH.TD24 TRANSDERMA (07:31)
[2024-04-27 07:36] LABS: Glucose, Whole Blood 114 mg/dL (60-115)
[2024-04-27] MEDS: 0.9 % Sodium Chloride Flush 3 ML SYRINGE IVFLUSH ×3 (08:07→20:02)
[2024-04-27] MEDS: PHENobarbitaL sodium 130 MG/ML VIAL IM (08:42)
--- NOTE | 2024-04-27 10:58 | MHC.CM.PN ---
PT NOT YET CLEARED TO DC DCP: HOME NO SERVICES VS ADDICTION MEDICINE RESOURCES SISTER TO TRANSPORT
--- NOTE | 2024-04-27 11:00 | P.PNIM_ITS ---
Subjective Subjective Date of Service: 04/27/24 Interval History: seen and examined this morning patient awake, alert and oriented continues to have withdrawal Review of Systems Review of Systems: Yes all other systems are reviewed and are negative Constitutional Constitutional: Denies chills and Denies fever(s) Cardiovascular Cardiovascular: Denies chest pain, Denies palpitations and Denies dyspnea Respiratory Respiratory: Denies cough and Denies dyspnea Gastrointestinal Gastrointestinal: Denies abdominal pain, Denies nausea and Denies vomiting Endocrine Endocrine: Denies palpitations Physical Exam 2 Vital Signs: Vital Signs: Last Vital Signs Temp 97.5 F 04/27/24 07:43 Pulse 94 04/27/24 07:43 Resp 20 04/27/24 07:43 BP 142/93 H 04/27/24 07:43 Pulse Ox 100 04/27/24 07:43 O2 Del Method Room Air 04/27/24 07:43 O2 Flow Rate 2 04/26/24 11:24 BMI result Body Mass Index 32.6 Appearing in no acute distress lung sounds are clear to auscultation heart regular rate rhythm, clear S1, S2 positive bowel sounds, abdomen is soft, nontender neuro patient is alert x3, no focal deficits Objective Data Active Medications Acetaminophen (Acetaminophen 325 Mg Tablet) 650 mg PO Q6H PRN PRN Reason: Pain, Mild 1-3,fever,headache Artificial Tears (Artificial Tears 15 Ml Drops) 1 drop EYE-BOTH QID [facility] Last Admin: 04/27/24 08:00 Dose: Not Given Documented By: EVITA Non-Admin Reason: Patient Refused Atorvastatin Calcium (Atorvastatin Calcium 10 Mg Tablet) 10 mg PO BEDTIME [facility] Last Admin: 04/26/24 21:11 Dose: 10 mg Documented By: LAWRENCE Buprenorphine/Naloxone (Buprenorphine/Naloxone 8/2 Mg Film) 2 film BUCCAL DAILY [facility] Last Admin: 04/27/24 07:29 Dose: 2 film Documented By: EVITA Buspirone HCl (Buspirone Hcl 5 Mg Tablet) 5 mg PO BID [facility] Last Admin: 04/27/24 07:30 Dose: 5 mg Documented By: EVITA Calcium Carbonate (Calcium Carbonate 750 Mg Tab.Chew) 750 mg PO Q4H PRN PRN Reason: Heartburn Dextrose (Dextrose 50 % 25 Gm/50 Ml Syringe) 25 gm IVPUSH Q15M PRN; Protocol PRN Reason: per Hypoglycemia Standing Ord. Duloxetine HCl (Duloxetine Hcl 60 Mg Capsule.Dr) 60 mg PO DAILY [facility] Last Admin: 04/27/24 07:30 Dose: 60 mg Documented By: EVITA Enoxaparin Sodium (Enoxaparin Sodium 40 Mg/0.4 Ml Syringe) 40 mg SUBCUT Q24H [facility] Last Admin: 04/26/24 15:44 Dose: 40 mg Documented By: KRISTIAN Finasteride (Finasteride 5 Mg Tablet) 5 mg PO DAILY [facility] Last Admin: 04/27/24 07:30 Dose: 5 mg Documented By: EVITA Folic Acid (Folic Acid 1 Mg Tablet) 1 mg PO DAILY [facility] Last Admin: 04/27/24 07:30 Dose: 1 mg Documented By: EVITA Gabapentin (Gabapentin 300 Mg Capsule) 600 mg PO TID [facility] Last Admin: 04/27/24 07:30 Dose: 600 mg Documented By: EVITA Glucose (Glucose Gel 15 Gm Gel..Gram.) 15 gm PO Q15M PRN; Protocol PRN Reason: per Hypoglycemia Standing Ord. Insulin Human Lispro (Insulin Lispro 100 Unit/Ml 3 Ml Vial) 0 unit SUBCUT QIDACHS [facility]; Protocol Last Admin: 04/27/24 07:59 Dose: Not Given Documented By: EVITA Non-Admin Reason: No Insulin Coverage Lorazepam (Lorazepam 1 Mg Tablet) 1 mg PO Q4H PRN PRN Reason: Breakthrough alcohol withdrawa Last Admin: 04/27/24 06:03 Dose: 1 mg Documented By: INO Magnesium Hydroxide (Milk Of Magnesia 30 Ml Oral.Susp) 30 ml PO DAILY PRN PRN Reason: Constipation Magnesium Oxide (Magnesium Oxide 400 Mg Tablet) 400 mg PO DAILY [facility] Last Admin: 04/27/24 07:29 Dose: 400 mg Documented By: EVITA Metoprolol Succinate (Metoprolol Succinate Er 25 Mg Tab.Er.24h) 25 mg PO BEDTIME [facility]; Protocol Last Admin: 04/26/24 21:10 Dose: 25 mg Documented By: LAWRENCE Multivitamins/Vitamin C (Multivitamin Tablet) 1 tab PO Q48H [facility] Last Admin: 04/26/24 08:58 Dose: 1 tab Documented By: KRISTIAN Nicotine (Nicotine 21 Mg Patch.Td24) 21 mg TRANSDERMA DAILY [facility] Last Admin: 04/27/24 07:31 Dose: 21 mg Documented By: EVITA Nicotine Polacrilex (Nicotine Polacrilex 2 Mg Gum) 2 mg BUCCAL Q1H PRN PRN Reason: Nicotine Cravings Pantoprazole Sodium (Pantoprazole Sodium 40 Mg/10 Ml Vial) 40 mg IVPUSH DAILY@0630 [facility] Last Admin: 04/27/24 05:58 Dose: 40 mg Documented By: INO Pharmacy Consult (Consult Rx Etoh Phenob Im/Po) 1 each MISCELLANE ONCE PRN; Protocol PRN Reason: Consult order Phenobarbital (Phenobarbital 30 Mg Tablet) 60 mg PO BID [facility]; Protocol Stop: 04/27/24 21:01 Last Admin: 04/27/24 07:29 Dose: 60 mg Documented By: EVITA Phenobarbital (Phenobarbital 30 Mg Tablet) 30 mg PO BID [facility]; Protocol Stop: 04/29/24 21:01 Phenobarbital (Phenobarbital 30 Mg Tablet) 30 mg PO DAILY [facility]; Protocol Stop: 05/01/24 09:01 Polyethylene Glycol (Polyethylene Glycol 3350 17 Gm Powd.Pack) 17 gm PO DAILY [facility] Last Admin: 04/27/24 07:31 Dose: Not Given Documented By: EVITA Non-Admin Reason: Pt moving bowels Senna (Sennosides 8.6 Mg Tablet) 17.2 mg PO DAILY [facility] Last Admin: 04/27/24 07:29 Dose: 17.2 mg Documented By: EVITA Sodium Chloride (0.9 % Sodium Chloride Flush 3 Ml Syringe) 3 ml IVFLUSH QSHIFT [facility] Last Admin: 04/27/24 08:07 Dose: 3 ml Documented By: EVITA Tamsulosin HCl (Tamsulosin Hcl 0.4 Mg Capsule) 0.8 mg PO BEDTIME [facility] Last Admin: 04/26/24 21:11 Dose: 0.8 mg Documented By: LWARENCE Thiamine HCl (Thiamine Hcl 100 Mg Tablet) 100 mg PO DAILY [facility] Last Admin: 04/27/24 07:30 Dose: 100 mg Documented By: EVITA Vitamin D (Cholecalciferol (Vitamin D3) 25 Mcg Tablet) 50 mcg PO DAILY [facility] Last Admin: 04/27/24 07:30 Dose: 50 mcg Documented By: EVITA Labs 04/26/24 06:18 04/26/24 06:18 Labs: Laboratory Results - last 24 hr 04/26/24 04/26/24 04/26/24 11:28 15:24 20:13 POC Glucose 124 H 173 H 138 H 04/27/24 07:31 POC Glucose 114 Assessment and Plan (1) Alcohol withdrawal syndrome: Status: Acute Plan 63-year-old male with history of alcohol use disorder with history of alcohol withdrawal, alcohol withdrawal seizures and multiple admissions for alcohol withdrawal, opioid use disorder on Suboxone, history of aspiration, anxiety, depression, diabetes who presents to the emergency department acutely intoxicated seeking detox Alcohol use disorder with acute alcohol intoxication and impending alcohol withdrawal History of severe alcohol withdrawal in the past with history of alcohol withdrawal seizures and multiple admissions requiring ICU level care continue phenobarbitol protocol; follow CIWA prn ativan for breakthrough symptoms Thiamine, folate, magnesium aspiration, seizure precautions empiric IV PPI addiction medicine consult Toxic metabolic encephalopathy due to etoh intoxication, medication resolved DM hold metformin SSI, POCs diabetic diet OUD continue suboxone Mood continue buspirone, duloxetine Neuropathy gabapentin at reduced dose to prevent withdrawal but monitor for sedation with etoh withdrawal medications, if remains stable can increase back to home dose home dose listed as prn but pt takes scheduled BPH finasteride, flomax HTN resume metoprolol Smoker NRT Obesity class I Discussed importance of weight management as this may be contributing to worsening of other comorbidities DVT ppx - lovenox Attending Dr. Rice Full code patient requires at least two midnight stay in the hospital for management of alcohol withdrawal Quality Stroke Does the patient have a stroke diagnosis?: No VTE Prior VTE?: No VTE Risk Level:: Medical - moderate - high VTE Device Contraindication: N/A - Device Ordered VTE Drug Contraindication: N/A - Med Ordered
[2024-04-27 11:06] LABS: Glucose, Whole Blood 158 mg/dL (60-115)
[2024-04-27] MEDS: Insulin Lispro 100 UNIT/ML 3 ML VIAL SUBCUT (11:35)
[2024-04-27] MEDS: Enoxaparin Sodium 40 MG/0.4 ML SYRINGE SUBCUT (15:34)
[2024-04-27] MEDS: LORazepam 2 MG/ML VIAL 1 MG IVPUSH ×2 (15:58→21:02)
[2024-04-27 16:14] LABS: Glucose, Whole Blood 143 mg/dL (60-115)
[2024-04-27] MEDS: PHENobarbitaL sodium 130 MG/ML VIAL IVPUSH (17:50)
[2024-04-27] MEDS: Tamsulosin HCL 0.4 MG CAPSULE 0.8 MG PO (20:01)
[2024-04-27] MEDS: Atorvastatin Calcium 10 MG TABLET PO (20:02)
[2024-04-27] MEDS: Metoprolol Succinate ER 25 MG TAB.ER.24H PO (20:02)
[2024-04-27 20:03] LABS: Glucose, Whole Blood 145 mg/dL (60-115)
[2024-04-28] VITALS (8 sets, daily range): BP systolic 130–163; BP diastolic 78–97; PULSE 76–99; RESP 14–22; TEMP 35.9–36.9; O2SAT 91–97
[2024-04-28] MEDS: LORazepam 2 MG/ML VIAL 1 MG IVPUSH ×2 (00:41→08:41)
[2024-04-28] MEDS: Nicotine Polacrilex 2 MG GUM BUCCAL ×4 (00:49→22:03)
[2024-04-28] MEDS: diphenhydrAMINE HCL 50 MG/ML VIAL 25 MG IVPUSH ×5 (02:41→23:26)
[2024-04-28] MEDS: PHENobarbitaL sodium 130 MG/ML VIAL IVPUSH ×2 (02:41→07:46)
[2024-04-28] MEDS: Pantoprazole Sodium 40 MG/10 ML VIAL IVPUSH (06:11)
[2024-04-28] MEDS: Cholecalciferol (Vitamin D3) 25 MCG TABLET 50 MCG PO (07:31)
[2024-04-28] MEDS: Folic Acid 1 MG TABLET PO (07:31)
[2024-04-28] MEDS: Multivitamin TABLET 1 TAB PO (07:31)
[2024-04-28] MEDS: Gabapentin 300 MG CAPSULE 600 MG PO ×3 (07:31→19:52)
[2024-04-28] MEDS: DULoxetine HCl 60 MG CAPSULE.DR PO (07:31)
[2024-04-28] MEDS: Finasteride 5 MG TABLET PO (07:31)
[2024-04-28] MEDS: PHENobarbitaL 30 MG TABLET PO ×2 (07:31→22:00)
[2024-04-28] MEDS: Thiamine HCL 100 MG TABLET PO (07:31)
[2024-04-28] MEDS: Magnesium Oxide 400 MG TABLET PO (07:31)
[2024-04-28] MEDS: busPIRone HCl 5 MG TABLET PO ×2 (07:31→19:53)
[2024-04-28] MEDS: Sennosides 8.6 MG TABLET 17.2 MG PO (07:31)
[2024-04-28] MEDS: Buprenorphine/Naloxone 8/2 mg FILM 2 FILM BUCCAL (07:32)
[2024-04-28] MEDS: 0.9 % Sodium Chloride Flush 3 ML SYRINGE IVFLUSH ×3 (07:32→23:34)
[2024-04-28] MEDS: Nicotine 21 MG PATCH.TD24 TRANSDERMA (07:32)
[2024-04-28 07:36] LABS: Glucose, Whole Blood 121 mg/dL (60-115)
--- NOTE | 2024-04-28 09:08 | P.PNIM_ITS ---
Subjective Subjective Date of Service: 04/28/24 Interval History: seen and examined this morning patient awake, alert, confused continues to have withdrawal with hallucinations Review of Systems Review of Systems: Yes all other systems are reviewed and are negative Constitutional Constitutional: Denies chills and Denies fever(s) Cardiovascular Cardiovascular: Denies chest pain, Denies palpitations and Denies dyspnea Respiratory Respiratory: Denies cough and Denies dyspnea Gastrointestinal Gastrointestinal: Denies abdominal pain, Denies nausea and Denies vomiting Endocrine Endocrine: Denies palpitations Physical Exam 2 Vital Signs: Vital Signs: Last Vital Signs Temp 98.5 F 04/28/24 07:34 Pulse 86 04/28/24 07:34 Resp 16 04/28/24 07:34 BP 148/94 H 04/28/24 07:34 Pulse Ox 92 04/28/24 07:34 O2 Del Method Room Air 04/28/24 07:34 O2 Flow Rate 2 04/26/24 11:24 BMI result Body Mass Index 32.6 Appearing in no acute distress head is normocephalic atraumatic eyes pupils are PERRLA sclera is anicteric mouth throat mucous membranes are intact and moist neck is supple no lymphadenopathy, no JVD noted lung sounds are clear to auscultation heart regular rate rhythm, clear S1, S2 positive bowel sounds, abdomen is soft, nontender neuro patient is alert x3, no focal deficits Objective Data Active Medications Acetaminophen (Acetaminophen 325 Mg Tablet) 650 mg PO Q6H PRN PRN Reason: Pain, Mild 1-3,fever,headache Artificial Tears (Artificial Tears 15 Ml Drops) 1 drop EYE-BOTH QID [facility] Last Admin: 04/28/24 07:43 Dose: Not Given Documented By: EVITA Non-Admin Reason: Patient Refused Atorvastatin Calcium (Atorvastatin Calcium 10 Mg Tablet) 10 mg PO BEDTIME [facility] Last Admin: 04/27/24 20:02 Dose: 10 mg Documented By: DYAN Buprenorphine/Naloxone (Buprenorphine/Naloxone 8/2 Mg Film) 2 film BUCCAL DAILY [facility] Last Admin: 04/28/24 07:32 Dose: 2 film Documented By: EVITA Buspirone HCl (Buspirone Hcl 5 Mg Tablet) 5 mg PO BID [facility] Last Admin: 04/28/24 07:31 Dose: 5 mg Documented By: EVITA Calcium Carbonate (Calcium Carbonate 750 Mg Tab.Chew) 750 mg PO Q4H PRN PRN Reason: Heartburn Dextrose (Dextrose 50 % 25 Gm/50 Ml Syringe) 25 gm IVPUSH Q15M PRN; Protocol PRN Reason: per Hypoglycemia Standing Ord. Duloxetine HCl (Duloxetine Hcl 60 Mg Capsule.Dr) 60 mg PO DAILY [facility] Last Admin: 04/28/24 07:31 Dose: 60 mg Documented By: EVITA Enoxaparin Sodium (Enoxaparin Sodium 40 Mg/0.4 Ml Syringe) 40 mg SUBCUT Q24H [facility] Last Admin: 04/27/24 15:34 Dose: 40 mg Documented By: TONIE Finasteride (Finasteride 5 Mg Tablet) 5 mg PO DAILY [facility] Last Admin: 04/28/24 07:31 Dose: 5 mg Documented By: EVITA Folic Acid (Folic Acid 1 Mg Tablet) 1 mg PO DAILY [facility] Last Admin: 04/28/24 07:31 Dose: 1 mg Documented By: EVITA Gabapentin (Gabapentin 300 Mg Capsule) 600 mg PO TID [facility] Last Admin: 04/28/24 07:31 Dose: 600 mg Documented By: EVITA Glucose (Glucose Gel 15 Gm Gel..Gram.) 15 gm PO Q15M PRN; Protocol PRN Reason: per Hypoglycemia Standing Ord. Insulin Human Lispro (Insulin Lispro 100 Unit/Ml 3 Ml Vial) 0 unit SUBCUT QIDACHS [facility]; Protocol Last Admin: 04/28/24 07:32 Dose: Not Given Documented By: EVITA Non-Admin Reason: No Insulin Coverage Lorazepam (Lorazepam 2 Mg/Ml Vial) 1 mg IVPUSH Q4H PRN PRN Reason: withdrawal Last Admin: 04/28/24 08:41 Dose: 1 mg Documented By: EVITA Magnesium Hydroxide (Milk Of Magnesia 30 Ml Oral.Susp) 30 ml PO DAILY PRN PRN Reason: Constipation Magnesium Oxide (Magnesium Oxide 400 Mg Tablet) 400 mg PO DAILY [facility] Last Admin: 04/28/24 07:31 Dose: 400 mg Documented By: EVITA Metoprolol Succinate (Metoprolol Succinate Er 25 Mg Tab.Er.24h) 25 mg PO BEDTIME [facility]; Protocol Last Admin: 04/27/24 20:02 Dose: 25 mg Documented By: DYAN Multivitamins/Vitamin C (Multivitamin Tablet) 1 tab PO Q48H [facility] Last Admin: 04/28/24 07:31 Dose: 1 tab Documented By: EVITA Nicotine (Nicotine 21 Mg Patch.Td24) 21 mg TRANSDERMA DAILY [facility] Last Admin: 04/28/24 07:32 Dose: 21 mg Documented By: EVITA Nicotine Polacrilex (Nicotine Polacrilex 2 Mg Gum) 2 mg BUCCAL Q1H PRN PRN Reason: Nicotine Cravings Last Admin: 04/28/24 00:49 Dose: 2 mg Documented By: INO Pantoprazole Sodium (Pantoprazole Sodium 40 Mg/10 Ml Vial) 40 mg IVPUSH DAILY@0630 [facility] Last Admin: 04/28/24 06:11 Dose: 40 mg Documented By: INO Pharmacy Consult (Consult Rx Etoh Phenob Im/Po) 1 each MISCELLANE ONCE PRN; Protocol PRN Reason: Consult order Phenobarbital (Phenobarbital 30 Mg Tablet) 30 mg PO BID [facility]; Protocol Stop: 04/29/24 21:01 Last Admin: 04/28/24 07:31 Dose: 30 mg Documented By: EVITA Phenobarbital (Phenobarbital 30 Mg Tablet) 30 mg PO DAILY [facility]; Protocol Stop: 05/01/24 09:01 Polyethylene Glycol (Polyethylene Glycol 3350 17 Gm Powd.Pack) 17 gm PO DAILY [facility] Last Admin: 04/28/24 07:43 Dose: Not Given Documented By: EVITA Non-Admin Reason: Moving bowels Senna (Sennosides 8.6 Mg Tablet) 17.2 mg PO DAILY [facility] Last Admin: 04/28/24 07:31 Dose: 17.2 mg Documented By: EVITA Sodium Chloride (0.9 % Sodium Chloride Flush 3 Ml Syringe) 3 ml IVFLUSH QSHIFT [facility] Last Admin: 04/28/24 07:32 Dose: 3 ml Documented By: EVITA Tamsulosin HCl (Tamsulosin Hcl 0.4 Mg Capsule) 0.8 mg PO BEDTIME [facility] Last Admin: 04/27/24 20:01 Dose: 0.8 mg Documented By: DYAN Thiamine HCl (Thiamine Hcl 100 Mg Tablet) 100 mg PO DAILY [facility] Last Admin: 04/28/24 07:31 Dose: 100 mg Documented By: EVITA Vitamin D (Cholecalciferol (Vitamin D3) 25 Mcg Tablet) 50 mcg PO DAILY [facility] Last Admin: 04/28/24 07:31 Dose: 50 mcg Documented By: EVITA Labs 04/26/24 06:18 04/28/24 10:14 Labs: Laboratory Results - last 24 hr 04/27/24 04/27/24 04/27/24 10:55 16:06 19:58 POC Glucose 158 H 143 H 145 H 04/28/24 07:29 POC Glucose 121 H Assessment and Plan (1) Alcohol withdrawal syndrome: Status: Acute Plan 63-year-old male with history of alcohol use disorder with history of alcohol withdrawal, alcohol withdrawal seizures and multiple admissions for alcohol withdrawal, opioid use disorder on Suboxone, history of aspiration, anxiety, depression, diabetes who presents to the emergency department acutely intoxicated seeking detox Toxic metabolic encephalopathy due to etoh intoxication continue tx for withdrawal high CIWA with hallucinations Seen evaluated by ICU attending, recommendation to schedule phenobarbital 130 mg IM every 3 hours, stopped lorazepam, no need for ICU transfer at this time Alcohol use disorder with alcohol withdrawal History of severe alcohol withdrawal in the past with history of alcohol withdrawal seizures and multiple admissions requiring ICU level care continue phenobarbitol protocol; follow CIWA prn ativan for breakthrough symptoms as well as breakthrough phenobarbitol Thiamine, folate, magnesium aspiration, seizure precautions empiric IV PPI addiction medicine consult DM2 SSI, POCs diabetic diet OUD continue suboxone Mood continue buspirone, duloxetine Neuropathy gabapentin BPH finasteride, flomax HTN resume metoprolol Smoker NRT Obesity class I Discussed importance of weight management as this may be contributing to worsening of other comorbidities DVT ppx - lovenox Attending Dr. Rice Full code patient requires at least two midnight stay in the hospital for management of alcohol withdrawal Quality Stroke Does the patient have a stroke diagnosis?: No VTE Prior VTE?: No VTE Risk Level:: Medical - moderate - high VTE Device Contraindication: N/A - Device Ordered VTE Drug Contraindication: N/A - Med Ordered
[2024-04-28 11:05] LABS: Anion Gap 10 (12-20); Blood Urea Nitrogen 12 mg/dL (9-16); Calcium 8.8 mg/dL (8.4-10.2); Carbon Dioxide 29 mmol/L (22-29); Chloride 102 mmol/L (96-108); Creatinine Clr Calc Pharmacy 126.6; Estimated Glomerular Filt Rate > 60; Glucose Random 169 mg/dL (60-115); Potassium 4.1 mmol/L (3.3-5.1); Sodium 137 mmol/L (135-145)
[2024-04-28 11:32] LABS: Glucose, Whole Blood 108 mg/dL (60-115)
[2024-04-28] MEDS: PHENobarbitaL sodium 130 MG/ML VIAL IM ×5 (12:32→23:27)
--- NOTE | 2024-04-28 13:39 | W.PM.CCCN ---
History of Present Illness Data of Consult Service Date: 04/28/24 Primary Care Provider: Estela Gupta MD [facility] Past Medical History Medical History Alcohol use disorder, severe, dependence Alcohol abuse Hyperlipidemia Depression with anxiety Diabetes Hypertension Social History Social History Household Members: None Household Members Other:: Self with a dog{ Parker} Housing: House Do you presently have visiting nurse or other home services: No Alcohol intake: current Alcohol intake frequency: 3 or more drinks per day Alcohol type: beer and hard liquor Comment: sitter 1:1 Patient Tobacco Use Status: Former Tobacco user Smoked in Last 30 Days: No Second Hand Smoke Exposure: No Use of substances other than those prescribed or required for medical reasons: No Substance Use Type: Marijuana Currently Displaying Signs/Symptoms of Drug Intoxication Withdrawal: No Have you been hit, kicked, punched, or otherwise hurt by someone within the past year? If so, by whom?: No Do you feel safe in your current relationship?: Yes Is there a partner from a previous relationship who is making you feel unsafe now?: No Are you made to feel afraid or neglected: No Advance Directives: Yes Advance Directives on File: Yes Advance Directives Date on File: 07/30/23 Do you have a plan to hurt others: No Plan Recently lost weight without trying: No Nutrition Risks: On aspiration precautions service: Yes Meds Allergies Allergy/AdvReac Type Severity Reaction Status Date / Time No Known Allergies Allergy Verified 04/25/24 12:19 Active Medications: Current Medications Acetaminophen (Acetaminophen 325 Mg Tablet) 650 mg PO Q6H PRN PRN Reason: Pain, Mild 1-3,fever,headache Artificial Tears (Artificial Tears 15 Ml Drops) 1 drop EYE-BOTH QID [facility] Last Admin: 04/28/24 11:44 Dose: Not Given Atorvastatin Calcium (Atorvastatin Calcium 10 Mg Tablet) 10 mg PO BEDTIME [facility] Last Admin: 04/27/24 20:02 Dose: 10 mg Buprenorphine/Naloxone (Buprenorphine/Naloxone 8/2 Mg Film) 2 film BUCCAL DAILY [facility] Last Admin: 04/28/24 07:32 Dose: 2 film Buspirone HCl (Buspirone Hcl 5 Mg Tablet) 5 mg PO BID [facility] Last Admin: 04/28/24 07:31 Dose: 5 mg Calcium Carbonate (Calcium Carbonate 750 Mg Tab.Chew) 750 mg PO Q4H PRN PRN Reason: Heartburn Dextrose (Dextrose 50 % 25 Gm/50 Ml Syringe) 25 gm IVPUSH Q15M PRN; Protocol PRN Reason: per Hypoglycemia Standing Ord. Diphenhydramine HCl (Diphenhydramine Hcl 50 Mg/Ml Vial) 25 mg IVPUSH Q4H PRN PRN Reason: itching Last Admin: 04/28/24 10:19 Dose: 25 mg Duloxetine HCl (Duloxetine Hcl 60 Mg Capsule.Dr) 60 mg PO DAILY [facility] Last Admin: 04/28/24 07:31 Dose: 60 mg Enoxaparin Sodium (Enoxaparin Sodium 40 Mg/0.4 Ml Syringe) 40 mg SUBCUT Q24H [facility] Last Admin: 04/27/24 15:34 Dose: 40 mg Finasteride (Finasteride 5 Mg Tablet) 5 mg PO DAILY [facility] Last Admin: 04/28/24 07:31 Dose: 5 mg Folic Acid (Folic Acid 1 Mg Tablet) 1 mg PO DAILY [facility] Last Admin: 04/28/24 07:31 Dose: 1 mg Gabapentin (Gabapentin 300 Mg Capsule) 600 mg PO TID [facility] Last Admin: 04/28/24 07:31 Dose: 600 mg Glucose (Glucose Gel 15 Gm Gel..Gram.) 15 gm PO Q15M PRN; Protocol PRN Reason: per Hypoglycemia Standing Ord. Insulin Human Lispro (Insulin Lispro 100 Unit/Ml 3 Ml Vial) 0 unit SUBCUT QIDACHS [facility]; Protocol Last Admin: 04/28/24 11:43 Dose: Not Given Lorazepam (Lorazepam 2 Mg/Ml Vial) 1 mg IVPUSH Q4H PRN PRN Reason: withdrawal Last Admin: 04/28/24 08:41 Dose: 1 mg Magnesium Hydroxide (Milk Of Magnesia 30 Ml Oral.Susp) 30 ml PO DAILY PRN PRN Reason: Constipation Magnesium Oxide (Magnesium Oxide 400 Mg Tablet) 400 mg PO DAILY [facility] Last Admin: 04/28/24 07:31 Dose: 400 mg Metoprolol Succinate (Metoprolol Succinate Er 25 Mg Tab.Er.24h) 25 mg PO BEDTIME [facility]; Protocol Last Admin: 04/27/24 20:02 Dose: 25 mg Multivitamins/Vitamin C (Multivitamin Tablet) 1 tab PO Q48H [facility] Last Admin: 04/28/24 07:31 Dose: 1 tab Nicotine (Nicotine 21 Mg Patch.Td24) 21 mg TRANSDERMA DAILY [facility] Last Admin: 04/28/24 07:32 Dose: 21 mg Nicotine Polacrilex (Nicotine Polacrilex 2 Mg Gum) 2 mg BUCCAL Q1H PRN PRN Reason: Nicotine Cravings Last Admin: 04/28/24 12:33 Dose: 2 mg Pantoprazole Sodium (Pantoprazole Sodium 40 Mg/10 Ml Vial) 40 mg IVPUSH DAILY@0630 [facility] Last Admin: 04/28/24 06:11 Dose: 40 mg Pharmacy Consult (Consult Rx Etoh Phenob Im/Po) 1 each MISCELLANE ONCE PRN; Protocol PRN Reason: Consult order Phenobarbital (Phenobarbital 30 Mg Tablet) 30 mg PO BID [facility]; Protocol Stop: 04/29/24 21:01 Last Admin: 04/28/24 07:31 Dose: 30 mg Phenobarbital (Phenobarbital 30 Mg Tablet) 30 mg PO DAILY [facility]; Protocol Stop: 05/01/24 09:01 Phenobarbital Sodium (Phenobarbital Sodium 130 Mg/Ml Vial) 130 mg IM Q4H PRN PRN Reason: withdrawal Last Admin: 04/28/24 12:32 Dose: 130 mg Polyethylene Glycol (Polyethylene Glycol 3350 17 Gm Powd.Pack) 17 gm PO DAILY [facility] Last Admin: 04/28/24 07:43 Dose: Not Given Senna (Sennosides 8.6 Mg Tablet) 17.2 mg PO DAILY [facility] Last Admin: 04/28/24 07:31 Dose: 17.2 mg Sodium Chloride (0.9 % Sodium Chloride Flush 3 Ml Syringe) [facility] Last Admin: 04/28/24 07:32 Dose: 3 ml Tamsulosin HCl (Tamsulosin Hcl 0.4 Mg Capsule) 0.8 mg PO BEDTIME [facility] Last Admin: 04/27/24 20:01 Dose: 0.8 mg Thiamine HCl (Thiamine Hcl 100 Mg Tablet) 100 mg PO DAILY [facility] Last Admin: 04/28/24 07:31 Dose: 100 mg Vitamin D (Cholecalciferol (Vitamin D3) 25 Mcg Tablet) 50 mcg PO DAILY [facility] Last Admin: 04/28/24 07:31 Dose: 50 mcg Home Medications ?Medication ?Instructions ?Recorded ?Confirmed ?Last Taken ?Type atorvastatin 20 mg tablet 10 mg PO BEDTIME 11/21/22 04/25/24 07/16/23 History buprenorphine 8 mg-naloxone 2 mg 2 film buccal DAILY 11/21/22 04/25/24 07/17/23 History sublingual film (Suboxone) buspirone 5 mg tablet 5 mg PO BID 11/21/22 04/25/24 07/17/23 History finasteride 5 mg tablet 5 mg PO DAILY 11/21/22 04/25/24 07/17/23 History hydroxyzine HCl 25 mg tablet 25 mg PO BEDTIME PRN Sleep 11/21/22 04/25/24 07/16/23 History melatonin 5 mg tablet 5 mg PO BEDTIME 11/21/22 04/25/24 07/17/23 History metformin 1,000 mg tablet 1,000 mg PO DAILY 11/21/22 04/25/24 07/17/23 History tamsulosin 0.4 mg capsule 0.8 mg PO BEDTIME 11/21/22 04/25/24 07/16/23 History trazodone 100 mg tablet 200 mg PO BEDTIME PRN Insomnia 11/21/22 04/25/24 07/16/23 History cyclobenzaprine 10 mg tablet 10 mg PO TID PRN Muscle Spasm 01/31/23 04/25/24 Unknown History duloxetine 60 mg capsule,delayed 60 mg PO DAILY 07/17/23 04/25/24 07/17/23 History release sprinkle testosterone 1.62 % (20.25 mg/1.25 2 packet transdermal DAILY 07/17/23 04/25/24 07/17/23 History gram) transdermal gel packet vitamin B complex 1 tab PO Q48H 07/17/23 04/25/24 07/17/23 History cholecalciferol (vitamin D3) 50 50 mcg PO DAILY 11/29/23 04/25/24 Unknown History mcg (2,000 unit) tablet (Vitamin D3) magnesium oxide 400 mg PO DAILY 11/29/23 04/25/24 Unknown History metoprolol succinate 25 mg 25 mg PO BEDTIME 11/29/23 04/25/24 Unknown History tablet,extended release 24 hr polyethylene glycol 3350 17 17 g PO DAILY 11/29/23 04/25/24 Unknown History gram/dose oral powder sennosides 8.6 mg tablet (senna) 17.2 mg PO DAILY 11/29/23 04/25/24 Unknown History tadalafil 20 mg tablet 20 mg PO Q3D PRN Erectile 11/29/23 04/25/24 Unknown History Dysfunction carboxymethylcellulose sodium 0.5 1 drp ophthalmic (eye) QID 04/25/24 04/25/24 Unknown History % eye drops gabapentin 300 mg capsule 900 mg PO TID PRN Pain 04/25/24 04/25/24 Unknown History psyllium 1 tsp PO DAILY PRN Constipation 04/25/24 04/25/24 Unknown History Physical Exam Vital Signs: Vital Signs: Last Vital Signs Temp 97.1 F 04/28/24 12:00 Pulse 90 04/28/24 12:00 Resp 14 04/28/24 12:00 BP 163/94 H 04/28/24 12:00 Pulse Ox 94 04/28/24 12:00 O2 Del Method Nasal Cannula 04/28/24 12:00 O2 Flow Rate 2 04/28/24 12:00 BMI result Body Mass Index 32.6 General: Not in any acute distress, resting comfortably in the bed Nutritional Appearance: well nourished and overweight Eyes: appearance normal, both eyes and all related structures; Alignment and Position: alignment normal and position normal Neck: No lymphadenopathy, no thyromegaly Resp: bilateral air entry equal, occasional added sounds present Cardio: Regular rate, regular rhythm; Heart sounds: S1 normal heart sound present and S2 normal heart sound present GI: soft, nontender, no guarding, no hepatosplenomegaly : bladder normal to inspection, bladder normal to palpation, no renal angle tenderness Skin: no rashes or lesions noted and elasticity normal Neuro: Sleeping, no focal deficits, moves all extremities Results Labs 04/26/24 06:18 04/28/24 10:14 Labs: BMP 04/28/24 10:14 Sodium 137 Potassium 4.1 Chloride 102 Carbon Dioxide 29 BUN 12 Creatinine 0.72 Calcium 8.8 Assessment and Plan (1) Alcohol withdrawal syndrome: Status: Acute Plan Patient is consulted ICU team for the management of alcohol withdrawal syndrome: Seen and examined the patient, received phenobarbital and currently is resting in the bed. Hemodynamically stable, maintaining airway well. Labs stable Patient is responding well to IM phenobarbital is a 130 mg but is lasting only up to 3 hours. So please change IM phenobarbital to 130 mg Q 3 hours. Avoid and stop benzodiazepines/Ativan as it can worsen the symptoms. Continue Benadryl for itching. Monitor liver function tests every morning. He does not need a continuous drips for control of his symptoms at present, can be managed in the floor. Total time managing care of this patient today: 20 minutes.
[2024-04-28] MEDS: Enoxaparin Sodium 40 MG/0.4 ML SYRINGE SUBCUT (16:10)
[2024-04-28 16:28] LABS: Glucose, Whole Blood 138 mg/dL (60-115)
[2024-04-28] MEDS: Tamsulosin HCL 0.4 MG CAPSULE 0.8 MG PO (19:52)
[2024-04-28] MEDS: Atorvastatin Calcium 10 MG TABLET PO (19:53)
[2024-04-28] MEDS: Butalb/Acetamin/Caff 50/325/40 TABLET 1 TAB PO (20:43)
[2024-04-28] MEDS: ondansetron HCL 4 MG/2 ML VIAL IVPUSH (20:44)
[2024-04-28] MEDS: Metoprolol Succinate ER 25 MG TAB.ER.24H PO (20:45)
[2024-04-28 20:57] LABS: Glucose, Whole Blood 168 mg/dL (60-115)
[2024-04-28] MEDS: Insulin Lispro 100 UNIT/ML 3 ML VIAL SUBCUT (22:03)
[2024-04-29] VITALS (7 sets, daily range): BP systolic 114–141; BP diastolic 69–83; PULSE 76–104; RESP 18–22; TEMP 36.3–36.8; O2SAT 88–97
[2024-04-29] MEDS: traZODone HCL 100 MG TABLET 200 MG PO
[2024-04-29] MEDS: PHENobarbitaL sodium 130 MG/ML VIAL IM ×6 (03:50→20:47)
[2024-04-29] MEDS: ondansetron HCL 4 MG/2 ML VIAL IVPUSH (03:54)
[2024-04-29 06:41] LABS: Alanine Aminotransferase 22 U/L (0-40); Albumin Level 3.9 g/dL (3.5-5.0); Alkaline Phosphatase 61 U/L (39-117); Aspartate Amino Transferase 39 U/L (5-37); Bilirubin Direct 0.2 mg/dL (0.0-0.5); Bilirubin Total 0.4 mg/dL (0.0-1.0)
[2024-04-29] MEDS: Finasteride 5 MG TABLET PO (08:42)
[2024-04-29] MEDS: busPIRone HCl 5 MG TABLET PO ×2 (08:43→20:50)
[2024-04-29] MEDS: Thiamine HCL 100 MG TABLET PO (08:43)
[2024-04-29] MEDS: Gabapentin 300 MG CAPSULE 600 MG PO ×3 (08:43→20:47)
[2024-04-29] MEDS: Magnesium Oxide 400 MG TABLET PO (08:43)
[2024-04-29] MEDS: diphenhydrAMINE HCL 50 MG/ML VIAL 25 MG IVPUSH ×3 (08:43→17:32)
[2024-04-29] MEDS: Buprenorphine/Naloxone 8/2 mg FILM 2 FILM BUCCAL (08:44)
[2024-04-29] MEDS: Nicotine 21 MG PATCH.TD24 TRANSDERMA (08:44)
[2024-04-29] MEDS: DULoxetine HCl 60 MG CAPSULE.DR PO (08:44)
[2024-04-29] MEDS: PHENobarbitaL 30 MG TABLET PO ×2 (08:44→20:46)
[2024-04-29] MEDS: Folic Acid 1 MG TABLET PO (08:44)
[2024-04-29] MEDS: Cholecalciferol (Vitamin D3) 25 MCG TABLET 50 MCG PO (08:44)
[2024-04-29] MEDS: 0.9 % Sodium Chloride Flush 3 ML SYRINGE IVFLUSH ×3 (08:47→21:00)
[2024-04-29] MEDS: Sennosides 8.6 MG TABLET 17.2 MG PO (08:49)
[2024-04-29 09:07] LABS: Glucose, Whole Blood 165 mg/dL (60-115)
--- NOTE | 2024-04-29 10:26 | MHC.RECOVRN ---
Met with pt to check in and provide support. Pt reports feeling a little better, does report tremors. Pt reports he does not remember the past few days, however, does remember t/w from last admission. Plan to continue with withdrawal management. T/w available as needed.
[2024-04-29 11:45] LABS: Glucose, Whole Blood 147 mg/dL (60-115)
--- NOTE | 2024-04-29 12:19 | HO.PM.IMPN ---
Subjective Subjective Date of Service: 04/29/24 Interval History: seen and examined this morning patient awake, alertmore aware continues to have withdrawal with hallucinations but better Review of Systems Review of Systems: Yes all other systems are reviewed and are negative Constitutional Constitutional: Denies chills and Denies fever(s) Cardiovascular Cardiovascular: Denies chest pain, Denies palpitations and Denies dyspnea Respiratory Respiratory: Denies cough and Denies dyspnea Gastrointestinal Gastrointestinal: Denies abdominal pain, Denies nausea and Denies vomiting Endocrine Endocrine: Denies palpitations Physical Exam Vital Signs: Vital Signs: Last Vital Signs Temp 97.7 F 04/29/24 11:40 Pulse 91 04/29/24 11:40 Resp 20 04/29/24 11:40 BP 131/80 04/29/24 11:40 Pulse Ox 97 04/29/24 11:40 O2 Del Method Nasal Cannula 04/29/24 11:40 O2 Flow Rate 2 04/29/24 11:40 BMI result Body Mass Index 32.6 Appearing in no acute distress head is normocephalic atraumatic eyes pupils are PERRLA sclera is anicteric mouth throat mucous membranes are intact and moist neck is supple no lymphadenopathy, no JVD noted lung sounds are clear to auscultation heart regular rate rhythm, clear S1, S2 positive bowel sounds, abdomen is soft, nontender neuro patient is alert x3, no focal deficits Objective Data Active Medications Acetaminophen (Acetaminophen 325 Mg Tablet) 650 mg PO Q6H PRN PRN Reason: Pain, Mild 1-3,fever,headache Artificial Tears (Artificial Tears 15 Ml Drops) 1 drop EYE-BOTH QID [facility] Last Admin: 04/29/24 08:51 Dose: Not Given Documented By: EVITA Non-Admin Reason: Patient Refused Atorvastatin Calcium (Atorvastatin Calcium 10 Mg Tablet) 10 mg PO BEDTIME [facility] Last Admin: 04/28/24 19:53 Dose: 10 mg Documented By: LINDA Buprenorphine/Naloxone (Buprenorphine/Naloxone 8/2 Mg Film) 2 film BUCCAL DAILY [facility] Last Admin: 04/29/24 08:44 Dose: 2 film Documented By: EVITA Buspirone HCl (Buspirone Hcl 5 Mg Tablet) 5 mg PO BID [facility] Last Admin: 04/29/24 08:43 Dose: 5 mg Documented By: EVITA Calcium Carbonate (Calcium Carbonate 750 Mg Tab.Chew) 750 mg PO Q4H PRN PRN Reason: Heartburn Dextrose (Dextrose 50 % 25 Gm/50 Ml Syringe) 25 gm IVPUSH Q15M PRN; Protocol PRN Reason: per Hypoglycemia Standing Ord. Diphenhydramine HCl (Diphenhydramine Hcl 50 Mg/Ml Vial) 25 mg IVPUSH Q4H PRN PRN Reason: itching Last Admin: 04/29/24 08:43 Dose: 25 mg Documented By: EVITA Duloxetine HCl (Duloxetine Hcl 60 Mg Capsule.Dr) 60 mg PO DAILY [facility] Last Admin: 04/29/24 08:44 Dose: 60 mg Documented By: EVITA Enoxaparin Sodium (Enoxaparin Sodium 40 Mg/0.4 Ml Syringe) 40 mg SUBCUT Q24H [facility] Last Admin: 04/28/24 16:10 Dose: 40 mg Documented By: EVITA Finasteride (Finasteride 5 Mg Tablet) 5 mg PO DAILY [facility] Last Admin: 04/29/24 08:42 Dose: 5 mg Documented By: EVITA Folic Acid (Folic Acid 1 Mg Tablet) 1 mg PO DAILY [facility] Last Admin: 04/29/24 08:44 Dose: 1 mg Documented By: EVITA Gabapentin (Gabapentin 300 Mg Capsule) 600 mg PO TID [facility] Last Admin: 04/29/24 08:43 Dose: 600 mg Documented By: EVITA Glucose (Glucose Gel 15 Gm Gel..Gram.) 15 gm PO Q15M PRN; Protocol PRN Reason: per Hypoglycemia Standing Ord. Insulin Human Lispro (Insulin Lispro 100 Unit/Ml 3 Ml Vial) 0 unit SUBCUT QIDACHS [facility]; Protocol Last Admin: 04/29/24 12:00 Dose: Not Given Documented By: EVITA Non-Admin Reason: No Insulin Coverage Magnesium Hydroxide (Milk Of Magnesia 30 Ml Oral.Susp) 30 ml PO DAILY PRN PRN Reason: Constipation Magnesium Oxide (Magnesium Oxide 400 Mg Tablet) 400 mg PO DAILY [facility] Last Admin: 04/29/24 08:43 Dose: 400 mg Documented By: EVITA Metoprolol Succinate (Metoprolol Succinate Er 25 Mg Tab.Er.24h) 25 mg PO BEDTIME [facility]; Protocol Last Admin: 04/28/24 20:45 Dose: 25 mg Documented By: LIDNA Multivitamins/Vitamin C (Multivitamin Tablet) 1 tab PO Q48H [facility] Last Admin: 04/28/24 07:31 Dose: 1 tab Documented By: EVITA Nicotine (Nicotine 21 Mg Patch.Td24) 21 mg TRANSDERMA DAILY [facility] Last Admin: 04/29/24 08:44 Dose: 21 mg Documented By: EVITA Nicotine Polacrilex (Nicotine Polacrilex 2 Mg Gum) 2 mg BUCCAL Q1H PRN PRN Reason: Nicotine Cravings Last Admin: 04/28/24 22:03 Dose: 2 mg Documented By: LINDA Comments: nicotine cravings Nicotine Polacrilex (Nicotine Polacrilex Lozenge 2 Mg Lozenge) 2 mg BUCCAL Q2H PRN PRN Reason: Nicotine Cravings Ondansetron HCl (Ondansetron Hcl 4 Mg/2 Ml Vial) 4 mg IVPUSH Q6H PRN PRN Reason: Nausea and Vomiting Last Admin: 04/29/24 03:54 Dose: 4 mg Documented By: LINDA Comments: given for nausea Pharmacy Consult (Consult Rx Etoh Phenob Im/Po) 1 each MISCELLANE ONCE PRN; Protocol PRN Reason: Consult order Phenobarbital (Phenobarbital 30 Mg Tablet) 30 mg PO BID [facility]; Protocol Stop: 04/29/24 21:01 Last Admin: 04/29/24 08:44 Dose: 30 mg Documented By: EVITA Phenobarbital (Phenobarbital 30 Mg Tablet) 30 mg PO DAILY [facility]; Protocol Stop: 05/01/24 09:01 Phenobarbital Sodium (Phenobarbital Sodium 130 Mg/Ml Vial) 130 mg IM Q3H [facility] Last Admin: 04/29/24 08:55 Dose: 130 mg Documented By: EVITA Polyethylene Glycol (Polyethylene Glycol 3350 17 Gm Powd.Pack) 17 gm PO DAILY [facility] Last Admin: 04/29/24 08:49 Dose: Not Given Documented By: EVITA Non-Admin Reason: Pt moved bowels Senna (Sennosides 8.6 Mg Tablet) 17.2 mg PO DAILY [facility] Last Admin: 04/29/24 08:49 Dose: 17.2 mg Documented By: EVITA Sodium Chloride (0.9 % Sodium Chloride Flush 3 Ml Syringe) 3 ml IVFLUSH QSHIFT [facility] Last Admin: 04/29/24 08:47 Dose: 3 ml Documented By: EVITA Tamsulosin HCl (Tamsulosin Hcl 0.4 Mg Capsule) 0.8 mg PO BEDTIME [facility] Last Admin: 04/28/24 19:52 Dose: 0.8 mg Documented By: LINDA Thiamine HCl (Thiamine Hcl 100 Mg Tablet) 100 mg PO DAILY [facility] Last Admin: 04/29/24 08:43 Dose: 100 mg Documented By: EVITA Vitamin D (Cholecalciferol (Vitamin D3) 25 Mcg Tablet) 50 mcg PO DAILY [facility] Last Admin: 04/29/24 08:44 Dose: 50 mcg Documented By: EVITA Labs 04/26/24 06:18 04/28/24 10:14 Labs: Laboratory Results - last 24 hr 04/28/24 04/28/24 04/29/24 16:16 20:48 06:10 Hold Purple Top SEE NOTE POC Glucose 138 H 168 H Total Bilirubin 0.4 Direct Bilirubin 0.2 AST 39 H ALT 22 Alkaline Phosphatase 61 Total Protein 7.0 Albumin 3.9 04/29/24 04/29/24 09:03 11:42 Hold Purple Top POC Glucose 165 H 147 H Total Bilirubin Direct Bilirubin AST ALT Alkaline Phosphatase Total Protein Albumin Assessment and Plan (1) Alcohol withdrawal syndrome: Status: Acute Plan 63-year-old male with history of alcohol use disorder with history of alcohol withdrawal, alcohol withdrawal seizures and multiple admissions for alcohol withdrawal, opioid use disorder on Suboxone, history of aspiration, anxiety, depression, diabetes who presents to the emergency department acutely intoxicated seeking detox Toxic metabolic encephalopathy. Improving slowly due to etoh intoxication continue tx for withdrawal high CIWA with hallucinations, but better Seen evaluated by ICU attending, recommendation to schedule phenobarbital 130 mg IM every 3 hours, stopped lorazepam, no need for ICU transfer at this time Alcohol use disorder with alcohol withdrawal History of severe alcohol withdrawal in the past with history of alcohol withdrawal seizures and multiple admissions requiring ICU level care continue phenobarbitol protocol; follow CIWA phenobarbitol Thiamine, folate, magnesium aspiration, seizure precautions empiric IV PPI addiction medicine DM2 SSI, POCs diabetic diet OUD continue suboxone Mood continue buspirone, duloxetine Neuropathy gabapentin BPH finasteride, flomax HTN resume metoprolol Smoker NRT Obesity class I Discussed importance of weight management as this may be contributing to worsening of other comorbidities DVT ppx - lovenox Attending Dr. Rice Full code patient requires at least two midnight stay in the hospital for management of alcohol withdrawal Quality Stroke Does the patient have a stroke diagnosis?: No VTE Prior VTE?: No VTE Risk Level:: Medical - moderate - high VTE Device Contraindication: N/A - Device Ordered VTE Drug Contraindication: N/A - Med Ordered
--- NOTE | 2024-04-29 14:47 | MHC.CM.PN ---
Per rounds, pt is not ready to DC, he requires ongoing treatment for alcohol withdrawl. CM to follow for DC needs.
[2024-04-29 15:30] LABS: Glucose, Whole Blood 180 mg/dL (60-115)
[2024-04-29] MEDS: Enoxaparin Sodium 40 MG/0.4 ML SYRINGE SUBCUT (16:22)
[2024-04-29] MEDS: Insulin Lispro 100 UNIT/ML 3 ML VIAL SUBCUT ×2 (16:23→20:48)
[2024-04-29 20:35] LABS: Glucose, Whole Blood 169 mg/dL (60-115)
[2024-04-29] MEDS: Tamsulosin HCL 0.4 MG CAPSULE 0.8 MG PO (20:48)
[2024-04-29] MEDS: Atorvastatin Calcium 10 MG TABLET PO (20:49)
[2024-04-29] MEDS: Metoprolol Succinate ER 25 MG TAB.ER.24H PO (20:50)
[2024-04-29] MEDS: Nicotine Polacrilex 2 MG GUM BUCCAL ×2 (21:31→23:56)
[2024-04-30] VITALS (7 sets, daily range): BP systolic 120–151; BP diastolic 74–98; PULSE 74–109; RESP 18–20; TEMP 36.2–37.2; O2SAT 92–98
[2024-04-30] MEDS: diphenhydrAMINE HCL 50 MG/ML VIAL 25 MG IVPUSH ×2 (00:50→06:35)
[2024-04-30] MEDS: PHENobarbitaL sodium 130 MG/ML VIAL IM ×7 (03:07→23:39)
[2024-04-30] MEDS: Nicotine Polacrilex 2 MG GUM BUCCAL ×3 (03:10→15:17)
--- NOTE | 2024-04-30 07:18 | PC.RT ---
pt continues to refuse cpap at [facility]. therefore th order will be dc'd according to policy
[2024-04-30 07:23] LABS: Alanine Aminotransferase 24 U/L (0-40); Albumin Level 4.1 g/dL (3.5-5.0); Alkaline Phosphatase 66 U/L (39-117); Aspartate Amino Transferase 36 U/L (5-37); Bilirubin Direct 0.1 mg/dL (0.0-0.5); Bilirubin Total 0.3 mg/dL (0.0-1.0); Total Protein 7.5 g/dL (6.5-8.0)
[2024-04-30 07:36] LABS: Glucose, Whole Blood 152 mg/dL (60-115)
[2024-04-30] MEDS: Insulin Lispro 100 UNIT/ML 3 ML VIAL SUBCUT ×3 (07:58→20:44)
[2024-04-30] MEDS: 0.9 % Sodium Chloride Flush 3 ML SYRINGE IVFLUSH ×2 (07:59→20:47)
[2024-04-30] MEDS: Nicotine 21 MG PATCH.TD24 TRANSDERMA (08:00)
[2024-04-30] MEDS: Artificial Tears 15 ML DROPS 1 DROP EYE-BOTH ×2 (08:00→12:20)
[2024-04-30] MEDS: Magnesium Oxide 400 MG TABLET PO (08:00)
[2024-04-30] MEDS: Cholecalciferol (Vitamin D3) 25 MCG TABLET 50 MCG PO (08:01)
[2024-04-30] MEDS: Multivitamin TABLET 1 TAB PO (08:01)
[2024-04-30] MEDS: Thiamine HCL 100 MG TABLET PO (08:01)
[2024-04-30] MEDS: Folic Acid 1 MG TABLET PO (08:01)
[2024-04-30] MEDS: polyethylene glycoL 3350 17 GM POWD.PACK PO (08:01)
[2024-04-30] MEDS: Finasteride 5 MG TABLET PO (08:01)
[2024-04-30] MEDS: DULoxetine HCl 60 MG CAPSULE.DR PO (08:01)
[2024-04-30] MEDS: busPIRone HCl 5 MG TABLET PO ×2 (08:02→20:43)
[2024-04-30] MEDS: Sennosides 8.6 MG TABLET 17.2 MG PO (08:04)
[2024-04-30] MEDS: Gabapentin 300 MG CAPSULE 600 MG PO ×3 (09:02→20:43)
[2024-04-30] MEDS: PHENobarbitaL 30 MG TABLET PO (09:02)
[2024-04-30] MEDS: Buprenorphine/Naloxone 8/2 mg FILM 2 FILM BUCCAL (09:02)
[2024-04-30 11:35] LABS: Glucose, Whole Blood 147 mg/dL (60-115)
[2024-04-30] MEDS: Mineral Oil/Petrolatum,White 106 GM Tube 1 APPL TOPICAL (12:19)
--- NOTE | 2024-04-30 14:44 | P.PNIM_ITS ---
Subjective Subjective Date of Service: 04/30/24 Interval History: seen and examined this morning follow up for alcohol withdrawal patient is awake, alert and speaking in full sentences; continues with hallucinations significant itching Review of Systems Review of Systems: Yes all other systems are reviewed and are negative Constitutional Constitutional: Denies chills and Denies fever(s) Cardiovascular Cardiovascular: Denies chest pain and Denies dyspnea Respiratory Respiratory: Denies dyspnea Gastrointestinal Gastrointestinal: Denies abdominal pain, Denies nausea and Denies vomiting Physical Exam 2 Vital Signs: Vital Signs: Last Vital Signs Temp 98.1 F 04/30/24 11:09 Pulse 101 H 04/30/24 11:09 Resp 18 04/30/24 11:09 BP 120/98 H 04/30/24 11:09 Pulse Ox 95 04/30/24 11:09 O2 Del Method Nasal Cannula 04/30/24 11:09 O2 Flow Rate 2 04/30/24 07:26 BMI result Body Mass Index 32.6 Const: General: alert, awake and Physically active Resp: Effort & Inspection: normal respiratory effort, able to speak in complete sentences, no respiratory distress and no use of accessory muscles A uscultation: clear to auscultation bilaterally Cardio: Rate: regular rate and tachycardic GI: Inspection: No distended Palpation (GI): Soft to palpation and nontender Skin: Other: excoriations b/l upper/lower extremities Neuro: Other: grossly nonfocal General: moves all extremities and CN's II-XI intact bilaterally Extrem: General: Yes no pedal edema Objective Data Active Medications Acetaminophen (Acetaminophen 325 Mg Tablet) 650 mg PO Q6H PRN PRN Reason: Pain, Mild 1-3,fever,headache Artificial Tears (Artificial Tears 15 Ml Drops) 1 drop EYE-BOTH QID [facility] Last Admin: 04/30/24 12:20 Dose: 1 drop Documented By: CHRISSY Atorvastatin Calcium (Atorvastatin Calcium 10 Mg Tablet) 10 mg PO BEDTIME [facility] Last Admin: 04/29/24 20:49 Dose: 10 mg Documented By: LAWRENCE Buprenorphine/Naloxone (Buprenorphine/Naloxone 8/2 Mg Film) 2 film BUCCAL DAILY [facility] Last Admin: 04/30/24 09:02 Dose: 2 film Documented By: DAVID Buspirone HCl (Buspirone Hcl 5 Mg Tablet) 5 mg PO BID [facility] Last Admin: 04/30/24 08:02 Dose: 5 mg Documented By: DAVID Calcium Carbonate (Calcium Carbonate 750 Mg Tab.Chew) 750 mg PO Q4H PRN PRN Reason: Heartburn Dextrose (Dextrose 50 % 25 Gm/50 Ml Syringe) 25 gm IVPUSH Q15M PRN; Protocol PRN Reason: per Hypoglycemia Standing Ord. Diphenhydramine HCl (Diphenhydramine Hcl 50 Mg/Ml Vial) 25 mg IVPUSH Q4H PRN PRN Reason: itching Last Admin: 04/30/24 06:35 Dose: 25 mg Documented By: BENNETT Duloxetine HCl (Duloxetine Hcl 60 Mg Capsule.Dr) 60 mg PO DAILY [facility] Last Admin: 04/30/24 08:01 Dose: 60 mg Documented By: DAVID Enoxaparin Sodium (Enoxaparin Sodium 40 Mg/0.4 Ml Syringe) 40 mg SUBCUT Q24H [facility] Last Admin: 04/29/24 16:22 Dose: 40 mg Documented By: EVITA Finasteride (Finasteride 5 Mg Tablet) 5 mg PO DAILY [facility] Last Admin: 04/30/24 08:01 Dose: 5 mg Documented By: DAVID Folic Acid (Folic Acid 1 Mg Tablet) 1 mg PO DAILY [facility] Last Admin: 04/30/24 08:01 Dose: 1 mg Documented By: DAVID Gabapentin (Gabapentin 300 Mg Capsule) 600 mg PO TID [facility] Last Admin: 04/30/24 09:02 Dose: 600 mg Documented By: DAVID Glucose (Glucose Gel 15 Gm Gel..Gram.) 15 gm PO Q15M PRN; Protocol PRN Reason: per Hypoglycemia Standing Ord. Insulin Human Lispro (Insulin Lispro 100 Unit/Ml 3 Ml Vial) 0 unit SUBCUT QIDACHS [facility]; Protocol Last Admin: 04/30/24 12:12 Dose: Not Given Documented By: CHRISSY Non-Admin Reason: No Insulin Coverage Magnesium Hydroxide (Milk Of Magnesia 30 Ml Oral.Susp) 30 ml PO DAILY PRN PRN Reason: Constipation Magnesium Oxide (Magnesium Oxide 400 Mg Tablet) 400 mg PO DAILY [facility] Last Admin: 04/30/24 08:00 Dose: 400 mg Documented By: DAVID Metoprolol Succinate (Metoprolol Succinate Er 25 Mg Tab.Er.24h) 25 mg PO BEDTIME [facility]; Protocol Last Admin: 04/29/24 20:50 Dose: 25 mg Documented By: LAWRENCE Multi-Ingred Cream/Lotion/Oil/Oint (Mineral Oil/Petrolatum,White 106 Gm Tube) 1 appl TOPICAL BID [facility]; Protocol Last Admin: 04/30/24 12:19 Dose: 1 appl Documented By: CHRISSY Multivitamins/Vitamin C (Multivitamin Tablet) 1 tab PO Q48H [facility] Last Admin: 04/30/24 08:01 Dose: 1 tab Documented By: DAVID Nicotine (Nicotine 21 Mg Patch.Td24) 21 mg TRANSDERMA DAILY [facility] Last Admin: 04/30/24 08:00 Dose: 21 mg Documented By: DAVID Nicotine Polacrilex (Nicotine Polacrilex 2 Mg Gum) 2 mg BUCCAL Q1H PRN PRN Reason: Nicotine Cravings Last Admin: 04/30/24 09:58 Dose: 2 mg Documented By: DAVID Nicotine Polacrilex (Nicotine Polacrilex Lozenge 2 Mg Lozenge) 2 mg BUCCAL Q2H PRN PRN Reason: Nicotine Cravings Ondansetron HCl (Ondansetron Hcl 4 Mg/2 Ml Vial) 4 mg IVPUSH Q6H PRN PRN Reason: Nausea and Vomiting Last Admin: 04/29/24 03:54 Dose: 4 mg Documented By: LINDA Comments: given for nausea Pharmacy Consult (Consult Rx Etoh Phenob Im/Po) 1 each MISCELLANE ONCE PRN; Protocol PRN Reason: Consult order Phenobarbital (Phenobarbital 30 Mg Tablet) 30 mg PO DAILY [facility]; Protocol Stop: 05/01/24 09:01 Last Admin: 04/30/24 09:02 Dose: 30 mg Documented By: DAVID Phenobarbital Sodium (Phenobarbital Sodium 130 Mg/Ml Vial) 130 mg IM Q3H [facility] Last Admin: 04/30/24 12:20 Dose: 130 mg Documented By: CHRISSY Polyethylene Glycol (Polyethylene Glycol 3350 17 Gm Powd.Pack) 17 gm PO DAILY [facility] Last Admin: 04/30/24 08:01 Dose: 17 gm Documented By: DAVID Senna (Sennosides 8.6 Mg Tablet) 17.2 mg PO DAILY [facility] Last Admin: 04/30/24 08:04 Dose: 17.2 mg Documented By: DAVID Sodium Chloride (0.9 % Sodium Chloride Flush 3 Ml Syringe) 3 ml IVFLUSH QSHIFT [facility] Last Admin: 04/30/24 07:59 Dose: 3 ml Documented By: DAVID Tamsulosin HCl (Tamsulosin Hcl 0.4 Mg Capsule) 0.8 mg PO BEDTIME [facility] Last Admin: 04/29/24 20:48 Dose: 0.8 mg Documented By: LAWRENCE Thiamine HCl (Thiamine Hcl 100 Mg Tablet) 100 mg PO DAILY [facility] Last Admin: 04/30/24 08:01 Dose: 100 mg Documented By: DAVID Vitamin D (Cholecalciferol (Vitamin D3) 25 Mcg Tablet) 50 mcg PO DAILY [facility] Last Admin: 04/30/24 08:01 Dose: 50 mcg Documented By: DAVID Labs 04/26/24 06:18 04/28/24 10:14 Labs: Laboratory Results - last 24 hr 04/29/24 04/29/24 04/30/24 15:26 20:31 06:55 Hold Purple Top SEE NOTE POC Glucose 180 H 169 H Total Bilirubin 0.3 Direct Bilirubin 0.1 AST 36 ALT 24 Alkaline Phosphatase 66 Total Protein 7.5 Albumin 4.1 04/30/24 04/30/24 07:31 11:32 Hold Purple Top POC Glucose 152 H 147 H Total Bilirubin Direct Bilirubin AST ALT Alkaline Phosphatase Total Protein Albumin Assessment and Plan (1) Alcohol withdrawal syndrome: Status: Acute Plan 63-year-old male with history of alcohol use disorder with history of alcohol withdrawal, alcohol withdrawal seizures and multiple admissions for alcohol withdrawal, opioid use disorder on Suboxone, history of aspiration, anxiety, depression, diabetes who presents to the emergency department acutely intoxicated seeking detox Toxic metabolic encephalopathy. Improving slowly due to etoh intoxication continue tx for withdrawal high CIWA with hallucinations, but better Seen evaluated by ICU attending, recommendation to schedule phenobarbital 130 mg IM every 3 hours, stopped lorazepam, no need for ICU transfer at this time at next ciwa assessment will consider reducing phenobarbitol to q4h prn Alcohol use disorder with alcohol withdrawal History of severe alcohol withdrawal in the past with history of alcohol withdrawal seizures and multiple admissions requiring ICU level care continue phenobarbitol protocol; follow CIWA phenobarbitol Thiamine, folate, magnesium aspiration, seizure precautions empiric IV PPI addiction medicine DM2 SSI, POCs diabetic diet OUD continue suboxone Mood continue buspirone, duloxetine Neuropathy gabapentin BPH finasteride, flomax HTN resume metoprolol Smoker NRT Obesity class I Discussed importance of weight management as this may be contributing to worsening of other comorbidities DVT ppx - lovenox Attending Dr. Rice Full code patient requires at least two midnight stay in the hospital for management of alcohol withdrawal Quality Stroke Does the patient have a stroke diagnosis?: No VTE Prior VTE?: No VTE Risk Level:: Medical - moderate - high VTE Device Contraindication: N/A - Device Ordered VTE Drug Contraindication: N/A - Med Ordered
[2024-04-30] MEDS: Enoxaparin Sodium 40 MG/0.4 ML SYRINGE SUBCUT (15:33)
[2024-04-30 15:41] LABS: Glucose, Whole Blood 170 mg/dL (60-115)
[2024-04-30] MEDS: OLANZapine 10 MG VIAL IM (16:35)
[2024-04-30 20:25] LABS: Glucose, Whole Blood 168 mg/dL (60-115)
[2024-04-30] MEDS: Atorvastatin Calcium 10 MG TABLET PO (20:42)
[2024-04-30] MEDS: Metoprolol Succinate ER 25 MG TAB.ER.24H PO (20:42)
[2024-04-30] MEDS: Tamsulosin HCL 0.4 MG CAPSULE 0.8 MG PO (20:43)
[2024-05-01] VITALS (10 sets, daily range): BP systolic 121–140; BP diastolic 61–87; PULSE 73–113; RESP 18–20; TEMP 36.2–36.7; O2SAT 93–97
[2024-05-01] MEDS: PHENobarbitaL sodium 130 MG/ML VIAL IM ×6 (01:25→19:25)
[2024-05-01] MEDS: Nicotine Polacrilex 2 MG GUM BUCCAL ×5 (01:54→21:28)
[2024-05-01] MEDS: diphenhydrAMINE HCL 50 MG/ML VIAL 25 MG IVPUSH ×3 (04:39→23:39)
--- NOTE | 2024-05-01 07:26 | PC.NURSE ---
Patient very unsteady on his feet, Pt. impulsive/quick getting oob and ambulates to bathroom and in hallway with 1:[address]. At 0045, pt. quickly oob and ambulating to bathroom almost falling and very unsteady. Pt yelling at staff to get out of bathroom and shut door. Aid Carito and this engineering writer outside bathroom door w/ aid holding open bathroom door to view pt. Patient yelled for door to be closed and Pt. got up off toilet witness and pt. fell onto bilateral hands and knees. Witnessed; no LOC or head strike. No visible injury and pt. denies discomfort or injury. Pt. got up off knees at his initiative with 2 standby assist as pt. yelling at staff and ambulating on his feet back to bed. with staff at his side. VS obtained. Stable. Dr. Tipton notified. Per Dr. Tipotn pt. received additional phenobarbitol im dose. see may.
[2024-05-01 07:29] LABS: Glucose, Whole Blood 112 mg/dL (60-115)
[2024-05-01 07:37] LABS: Alanine Aminotransferase 21 U/L (0-40); Albumin Level 3.8 g/dL (3.5-5.0); Alkaline Phosphatase 66 U/L (39-117); Aspartate Amino Transferase 41 U/L (5-37); Bilirubin Direct 0.1 mg/dL (0.0-0.5); Bilirubin Total 0.3 mg/dL (0.0-1.0); Total Protein 7.2 g/dL (6.5-8.0)
[2024-05-01] MEDS: polyethylene glycoL 3350 17 GM POWD.PACK PO (08:52)
[2024-05-01] MEDS: Nicotine 21 MG PATCH.TD24 TRANSDERMA (08:52)
[2024-05-01] MEDS: Milk of Magnesia 30 ML ORAL.SUSP PO (08:52)
[2024-05-01] MEDS: Finasteride 5 MG TABLET PO (08:52)
[2024-05-01] MEDS: Magnesium Oxide 400 MG TABLET PO (08:53)
[2024-05-01] MEDS: Cholecalciferol (Vitamin D3) 25 MCG TABLET 50 MCG PO (08:53)
[2024-05-01] MEDS: Buprenorphine/Naloxone 8/2 mg FILM 2 FILM BUCCAL (08:53)
[2024-05-01] MEDS: busPIRone HCl 5 MG TABLET PO ×2 (08:53→19:23)
[2024-05-01] MEDS: Gabapentin 300 MG CAPSULE 600 MG PO ×3 (08:53→19:22)
[2024-05-01] MEDS: Folic Acid 1 MG TABLET PO (08:53)
[2024-05-01] MEDS: Thiamine HCL 100 MG TABLET PO (08:53)
[2024-05-01] MEDS: DULoxetine HCl 60 MG CAPSULE.DR PO (08:53)
[2024-05-01] MEDS: 0.9 % Sodium Chloride Flush 3 ML SYRINGE IVFLUSH ×3 (08:54→19:52)
[2024-05-01] MEDS: Sennosides 8.6 MG TABLET 17.2 MG PO (08:56)
[2024-05-01] MEDS: Artificial Tears 15 ML DROPS 1 DROP EYE-BOTH (09:04)
[2024-05-01] MEDS: Mineral Oil/Petrolatum,White 106 GM Tube 1 APPL TOPICAL ×2 (09:04→19:52)
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
[2024-05-01] MEDS: Insulin Lispro 100 UNIT/ML 3 ML VIAL SUBCUT ×3 (11:00→19:48)
[2024-05-01 11:08] LABS: Glucose, Whole Blood 192 mg/dL (60-115)
--- NOTE | 2024-05-01 13:39 | MHC.CM.PN ---
Per rounds, pt. requires ongoing treatment for alcohol withdrawal. CM to follow for DC needs.
[2024-05-01] MEDS: Enoxaparin Sodium 40 MG/0.4 ML SYRINGE SUBCUT (15:03)
--- NOTE | 2024-05-01 15:25 | P.PNIM_ITS ---
Subjective Subjective Date of Service: 05/01/24 Interval History: seen and examined this morning follow up for etoh withdrawal had witnessed fall overnight - no injuries more calm and cooperative this morning itching improved no hallucinations at this time Review of Systems Review of Systems: Yes all other systems are reviewed and are negative Constitutional Constitutional: Denies chills and Denies fever(s) Physical Exam 2 Vital Signs: Vital Signs: Last Vital Signs Temp 98.1 F 05/01/24 11:28 Pulse 84 05/01/24 11:28 Resp 18 05/01/24 11:28 BP 122/73 05/01/24 11:28 Pulse Ox 93 05/01/24 11:28 O2 Del Method Room Air 05/01/24 11:28 O2 Flow Rate 2 04/30/24 15:39 BMI result Body Mass Index 32.6 Const: General: cooperative, comfortable, alert and awake Nutritional Appearance: overweight Orientation/consciousness: oriented to person, oriented to place and patient oriented x3 Resp: Effort & Inspection: normal respiratory effort, able to speak in complete sentences, no respiratory distress and no use of accessory muscles A uscultation: clear to auscultation bilaterally Cardio: Rate: regular rate GI: Inspection: No distended Palpation (GI): Soft to palpation and nontender Skin: Other: excoriations b/l upper/lower extremities Neuro: Other: grossly nonfocal General: oriented to person, oriented to place, patient oriented x3, moves all extremities and CN's II-XI intact bilaterally Extrem: General: Yes no pedal edema Objective Data Active Medications Acetaminophen (Acetaminophen 325 Mg Tablet) 650 mg PO Q6H PRN PRN Reason: Pain, Mild 1-3,fever,headache Artificial Tears (Artificial Tears 15 Ml Drops) 1 drop EYE-BOTH QID [facility] Last Admin: 05/01/24 10:58 Dose: Not Given Documented By: STEFF Non-Admin Reason: Patient Refused Atorvastatin Calcium (Atorvastatin Calcium 10 Mg Tablet) 10 mg PO BEDTIME [facility] Last Admin: 04/30/24 20:42 Dose: 10 mg Documented By: LUCY Buprenorphine/Naloxone (Buprenorphine/Naloxone 8/2 Mg Film) 2 film BUCCAL DAILY [facility] Last Admin: 05/01/24 08:53 Dose: 2 film Documented By: STEFF Buspirone HCl (Buspirone Hcl 5 Mg Tablet) 5 mg PO BID [facility] Last Admin: 05/01/24 08:53 Dose: 5 mg Documented By: STEFF Calcium Carbonate (Calcium Carbonate 750 Mg Tab.Chew) 750 mg PO Q4H PRN PRN Reason: Heartburn Dextrose (Dextrose 50 % 25 Gm/50 Ml Syringe) 25 gm IVPUSH Q15M PRN; Protocol PRN Reason: per Hypoglycemia Standing Ord. Diphenhydramine HCl (Diphenhydramine Hcl 50 Mg/Ml Vial) 25 mg IVPUSH Q4H PRN PRN Reason: itching Last Admin: 05/01/24 04:39 Dose: 25 mg Documented By: LUCY Duloxetine HCl (Duloxetine Hcl 60 Mg Capsule.Dr) 60 mg PO DAILY [facility] Last Admin: 05/01/24 08:53 Dose: 60 mg Documented By: STEFF Enoxaparin Sodium (Enoxaparin Sodium 40 Mg/0.4 Ml Syringe) 40 mg SUBCUT Q24H [facility] Last Admin: 05/01/24 15:03 Dose: 40 mg Documented By: STEFF Finasteride (Finasteride 5 Mg Tablet) 5 mg PO DAILY [facility] Last Admin: 05/01/24 08:52 Dose: 5 mg Documented By: STEFF Folic Acid (Folic Acid 1 Mg Tablet) 1 mg PO DAILY [facility] Last Admin: 05/01/24 08:53 Dose: 1 mg Documented By: STEFF Gabapentin (Gabapentin 300 Mg Capsule) 600 mg PO TID [facility] Last Admin: 05/01/24 15:02 Dose: 600 mg Documented By: STEFF Glucose (Glucose Gel 15 Gm Gel..Gram.) 15 gm PO Q15M PRN; Protocol PRN Reason: per Hypoglycemia Standing Ord. Insulin Human Lispro (Insulin Lispro 100 Unit/Ml 3 Ml Vial) 0 unit SUBCUT QIDACHS [facility]; Protocol Last Admin: 05/01/24 11:00 Dose: 2 unit Documented By: STEFF Magnesium Hydroxide (Milk Of Magnesia 30 Ml Oral.Susp) 30 ml PO DAILY PRN PRN Reason: Constipation Last Admin: 05/01/24 08:52 Dose: 30 ml Documented By: STEFF Magnesium Oxide (Magnesium Oxide 400 Mg Tablet) 400 mg PO DAILY [facility] Last Admin: 05/01/24 08:53 Dose: 400 mg Documented By: STEFF Metoprolol Succinate (Metoprolol Succinate Er 25 Mg Tab.Er.24h) 25 mg PO BEDTIME [facility]; Protocol Last Admin: 04/30/24 20:42 Dose: 25 mg Documented By: LUCY Multi-Ingred Cream/Lotion/Oil/Oint (Mineral Oil/Petrolatum,White 106 Gm Tube) 1 appl TOPICAL BID [facility]; Protocol Last Admin: 05/01/24 09:04 Dose: 1 appl Documented By: STEFF Multivitamins/Vitamin C (Multivitamin Tablet) 1 tab PO Q48H [facility] Last Admin: 04/30/24 08:01 Dose: 1 tab Documented By: DAVID Nicotine (Nicotine 21 Mg Patch.Td24) 21 mg TRANSDERMA DAILY [facility] Last Admin: 05/01/24 08:52 Dose: 21 mg Documented By: STEFF Nicotine Polacrilex (Nicotine Polacrilex 2 Mg Gum) 2 mg BUCCAL Q1H PRN PRN Reason: Nicotine Cravings Last Admin: 05/01/24 10:57 Dose: 2 mg Documented By: STEFF Nicotine Polacrilex (Nicotine Polacrilex Lozenge 2 Mg Lozenge) 2 mg BUCCAL Q2H PRN PRN Reason: Nicotine Cravings Ondansetron HCl (Ondansetron Hcl 4 Mg/2 Ml Vial) 4 mg IVPUSH Q6H PRN PRN Reason: Nausea and Vomiting Last Admin: 04/29/24 03:54 Dose: 4 mg Documented By: LINDA Comments: given for nausea Pharmacy Consult (Consult Rx Etoh Phenob Im/Po) 1 each MISCELLANE ONCE PRN; Protocol PRN Reason: Consult order Phenobarbital Sodium (Phenobarbital Sodium 130 Mg/Ml Vial) 130 mg IM Q4H PRN PRN Reason: breakthrough withdrawal Last Admin: 05/01/24 15:07 Dose: 130 mg Documented By: STEFF Polyethylene Glycol (Polyethylene Glycol 3350 17 Gm Powd.Pack) 17 gm PO DAILY [facility] Last Admin: 05/01/24 08:52 Dose: 17 gm Documented By: STEFF Senna (Sennosides 8.6 Mg Tablet) 17.2 mg PO DAILY [facility] Last Admin: 05/01/24 08:56 Dose: 17.2 mg Documented By: STEFF Sodium Chloride (0.9 % Sodium Chloride Flush 3 Ml Syringe) 3 ml IVFLUSH QSHIFT [facility] Last Admin: 05/01/24 15:03 Dose: 3 ml Documented By: STEFF Tamsulosin HCl (Tamsulosin Hcl 0.4 Mg Capsule) 0.8 mg PO BEDTIME [facility] Last Admin: 04/30/24 20:43 Dose: 0.8 mg Documented By: LUCY Thiamine HCl (Thiamine Hcl 100 Mg Tablet) 100 mg PO DAILY [facility] Last Admin: 05/01/24 08:53 Dose: 100 mg Documented By: STEFF Vitamin D (Cholecalciferol (Vitamin D3) 25 Mcg Tablet) 50 mcg PO DAILY [facility] Last Admin: 05/01/24 08:53 Dose: 50 mcg Documented By: STEFF Labs 04/26/24 06:18 04/28/24 10:14 Labs: Laboratory Results - last 24 hr 04/30/24 04/30/24 05/01/24 15:37 20:19 06:16 POC Glucose 170 H 168 H Total Bilirubin 0.3 Direct Bilirubin 0.1 AST 41 H ALT 21 Alkaline Phosphatase 66 Total Protein 7.2 Albumin 3.8 05/01/24 05/01/24 07:25 10:58 POC Glucose 112 192 H Total Bilirubin Direct Bilirubin AST ALT Alkaline Phosphatase Total Protein Albumin Assessment and Plan (1) Alcohol withdrawal syndrome: Status: Acute Plan 63-year-old male with history of alcohol use disorder with history of alcohol withdrawal, alcohol withdrawal seizures and multiple admissions for alcohol withdrawal, opioid use disorder on Suboxone, history of aspiration, anxiety, depression, diabetes who presents to the emergency department acutely intoxicated seeking detox Toxic metabolic encephalopathy. Improving due to etoh withdrawal Seen evaluated by ICU attending, recommendation to schedule phenobarbital 130 mg IM every 3 hours, stopped lorazepam, no need for ICU transfer at this time at next ciwv assessment will consider reducing phenobarbitol to q4h prn Alcohol use disorder with alcohol withdrawal History of severe alcohol withdrawal in the past with history of alcohol withdrawal seizures and multiple admissions requiring ICU level care CIWA trending down - IM phenobarbitol changed to q4h prn breakthrough withdrawal; will re-time oral phenobarb taper Thiamine, folate, magnesium aspiration, seizure precautions empiric IV PPI addiction medicine DM2 SSI, POCs diabetic diet OUD continue suboxone Mood continue buspirone, duloxetine Neuropathy gabapentin BPH finasteride, flomax HTN metoprolol Smoker NRT Obesity class I Discussed importance of weight management as this may be contributing to worsening of other comorbidities DVT ppx - lovenox Attending Dr. Rice Full code patient requires ongoing stay in the hospital for management of alcohol severe withdrawal Quality Stroke Does the patient have a stroke diagnosis?: No VTE Prior VTE?: No VTE Risk Level:: Medical - moderate - high VTE Device Contraindication: N/A - Device Ordered VTE Drug Contraindication: N/A - Med Ordered
[2024-05-01 15:49] LABS: Glucose, Whole Blood 169 mg/dL (60-115)
[2024-05-01] MEDS: Tamsulosin HCL 0.4 MG CAPSULE 0.8 MG PO (19:21)
[2024-05-01] MEDS: Atorvastatin Calcium 10 MG TABLET PO (19:24)
[2024-05-01] MEDS: PHENobarbitaL 30 MG TABLET 60 MG PO (19:31)
[2024-05-01] MEDS: Metoprolol Succinate ER 25 MG TAB.ER.24H PO (19:32)
[2024-05-01 19:55] LABS: Glucose, Whole Blood 163 mg/dL (60-115)
[2024-05-02] MEDS: PHENobarbitaL sodium 130 MG/ML VIAL IM ×4 (03:02→19:51)
[2024-05-02] MEDS: Nicotine Polacrilex 2 MG GUM BUCCAL ×7 (03:06→22:41)
[2024-05-02 03:08] VITALS: BP 137/82; PULSE 80; RESP 19; TEMP 36.4; O2SAT 94
[2024-05-02] MEDS: diphenhydrAMINE HCL 50 MG/ML VIAL 25 MG IVPUSH (05:29)
[2024-05-02 07:13] LABS: Glucose, Whole Blood 163 mg/dL (60-115)
[2024-05-02 07:15] LABS: Alanine Aminotransferase 25 U/L (0-40); Albumin Level 4.1 g/dL (3.5-5.0); Alkaline Phosphatase 70 U/L (39-117); Aspartate Amino Transferase 40 U/L (5-37); Bilirubin Direct < 0.2 mg/dL (0.0-0.5); Bilirubin Total 0.2 mg/dL (0.0-1.0); Total Protein 7.7 g/dL (6.5-8.0)
[2024-05-02] MEDS: 0.9 % Sodium Chloride Flush 3 ML SYRINGE IVFLUSH ×3 (07:46→22:41)
[2024-05-02] MEDS: Sennosides 8.6 MG TABLET 17.2 MG PO (07:46)
[2024-05-02] MEDS: polyethylene glycoL 3350 17 GM POWD.PACK PO (07:46)
[2024-05-02] MEDS: Mineral Oil/Petrolatum,White 106 GM Tube 1 APPL TOPICAL ×2 (07:46→19:46)
[2024-05-02] MEDS: Insulin Lispro 100 UNIT/ML 3 ML VIAL SUBCUT ×2 (07:46→11:51)
[2024-05-02] MEDS: Nicotine 21 MG PATCH.TD24 TRANSDERMA (07:46)
[2024-05-02] MEDS: Folic Acid 1 MG TABLET PO (07:47)
[2024-05-02] MEDS: Magnesium Oxide 400 MG TABLET PO (07:47)
[2024-05-02] MEDS: Thiamine HCL 100 MG TABLET PO (07:47)
[2024-05-02] MEDS: Cholecalciferol (Vitamin D3) 25 MCG TABLET 50 MCG PO (07:47)
[2024-05-02] MEDS: Gabapentin 300 MG CAPSULE 600 MG PO ×3 (07:47→19:45)
[2024-05-02] MEDS: DULoxetine HCl 60 MG CAPSULE.DR PO (07:47)
[2024-05-02] MEDS: Buprenorphine/Naloxone 8/2 mg FILM 2 FILM BUCCAL (07:47)
[2024-05-02] MEDS: Multivitamin TABLET 1 TAB PO (07:48)
[2024-05-02] MEDS: busPIRone HCl 5 MG TABLET PO ×2 (07:48→19:45)
[2024-05-02] MEDS: PHENobarbitaL 30 MG TABLET 60 MG PO ×2 (07:48→19:45)
[2024-05-02] MEDS: Finasteride 5 MG TABLET PO (07:48)
[2024-05-02 08:00] VITALS: BP 134/76; PULSE 73; RESP 18; TEMP 37; O2SAT 93
[2024-05-02 11:10] LABS: Glucose, Whole Blood 165 mg/dL (60-115)
[2024-05-02] MEDS: Artificial Tears 15 ML DROPS 1 DROP EYE-BOTH (11:54)
[2024-05-02 12:00] VITALS: BP 136/89; PULSE 89; RESP 20; TEMP 37.1; O2SAT 96
--- NOTE | 2024-05-02 14:06 | P.PNIM_ITS ---
Subjective Subjective Date of Service: 05/02/24 Interval History: seen and examined this morning follow up for etoh withdrawal had witnessed fall overnight - no injuries more calm and cooperative this morning itching improved no hallucinations at this time Review of Systems Review of Systems: Yes all other systems are reviewed and are negative Constitutional Constitutional: Denies chills and Denies fever(s) Physical Exam 2 Vital Signs: Vital Signs: Last Vital Signs Temp 98.7 F 05/02/24 12:00 Pulse 89 05/02/24 12:00 Resp 20 05/02/24 12:00 BP 136/89 05/02/24 12:00 Pulse Ox 96 05/02/24 12:00 O2 Del Method Room Air 05/02/24 12:00 O2 Flow Rate 2 04/30/24 15:39 BMI result Body Mass Index 32.6 Appearing in no acute distress lung sounds are clear to auscultation heart regular rate rhythm, clear S1, S2 positive bowel sounds, abdomen is soft, nontender neuro patient is alert x3, no focal deficits Objective Data Active Medications Acetaminophen (Acetaminophen 325 Mg Tablet) 650 mg PO Q6H PRN PRN Reason: Pain, Mild 1-3,fever,headache Artificial Tears (Artificial Tears 15 Ml Drops) 1 drop EYE-BOTH QID [facility] Last Admin: 05/02/24 11:54 Dose: 1 drop Documented By: STEFF Atorvastatin Calcium (Atorvastatin Calcium 10 Mg Tablet) 10 mg PO BEDTIME [facility] Last Admin: 05/01/24 19:24 Dose: 10 mg Documented By: AISSATOU Bisacodyl (Bisacodyl 10 Mg Supp.Rect) 10 mg OH BEDTIME [facility] Last Admin: 05/01/24 21:00 Dose: Not Given Documented By: AISSATOU Non-Admin Reason: Patient Refused Buprenorphine/Naloxone (Buprenorphine/Naloxone 8/2 Mg Film) 2 film BUCCAL DAILY [facility] Last Admin: 05/02/24 07:47 Dose: 2 film Documented By: STEFF Buspirone HCl (Buspirone Hcl 5 Mg Tablet) 5 mg PO BID [facility] Last Admin: 05/02/24 07:48 Dose: 5 mg Documented By: STEFF Calcium Carbonate (Calcium Carbonate 750 Mg Tab.Chew) 750 mg PO Q4H PRN PRN Reason: Heartburn Dextrose (Dextrose 50 % 25 Gm/50 Ml Syringe) 25 gm IVPUSH Q15M PRN; Protocol PRN Reason: per Hypoglycemia Standing Ord. Diphenhydramine HCl (Diphenhydramine Hcl 50 Mg/Ml Vial) 25 mg IVPUSH Q4H PRN PRN Reason: itching Last Admin: 05/02/24 05:29 Dose: 25 mg Documented By: AISSATOU Duloxetine HCl (Duloxetine Hcl 60 Mg Capsule.Dr) 60 mg PO DAILY [facility] Last Admin: 05/02/24 07:47 Dose: 60 mg Documented By: STEFF Enoxaparin Sodium (Enoxaparin Sodium 40 Mg/0.4 Ml Syringe) 40 mg SUBCUT Q24H [facility] Last Admin: 05/01/24 15:03 Dose: 40 mg Documented By: STEFF Finasteride (Finasteride 5 Mg Tablet) 5 mg PO DAILY [facility] Last Admin: 05/02/24 07:48 Dose: 5 mg Documented By: STEFF Folic Acid (Folic Acid 1 Mg Tablet) 1 mg PO DAILY [facility] Last Admin: 05/02/24 07:47 Dose: 1 mg Documented By: STEFF Gabapentin (Gabapentin 300 Mg Capsule) 600 mg PO TID [facility] Last Admin: 05/02/24 07:47 Dose: 600 mg Documented By: STEFF Glucose (Glucose Gel 15 Gm Gel..Gram.) 15 gm PO Q15M PRN; Protocol PRN Reason: per Hypoglycemia Standing Ord. Insulin Human Lispro (Insulin Lispro 100 Unit/Ml 3 Ml Vial) 0 unit SUBCUT QIDACHS [facility]; Protocol Last Admin: 05/02/24 11:51 Dose: 2 unit Documented By: STEFF Magnesium Hydroxide (Milk Of Magnesia 30 Ml Oral.Susp) 30 ml PO DAILY PRN PRN Reason: Constipation Last Admin: 05/01/24 08:52 Dose: 30 ml Documented By: STEFF Magnesium Oxide (Magnesium Oxide 400 Mg Tablet) 400 mg PO DAILY [facility] Last Admin: 05/02/24 07:47 Dose: 400 mg Documented By: STEFF Metoprolol Succinate (Metoprolol Succinate Er 25 Mg Tab.Er.24h) 25 mg PO BEDTIME [facility]; Protocol Last Admin: 05/01/24 19:32 Dose: 25 mg Documented By: AISSATOU Multi-Ingred Cream/Lotion/Oil/Oint (Mineral Oil/Petrolatum,White 106 Gm Tube) 1 appl TOPICAL BID [facility]; Protocol Last Admin: 05/02/24 07:46 Dose: 1 appl Documented By: STEFF Multivitamins/Vitamin C (Multivitamin Tablet) 1 tab PO Q48H [facility] Last Admin: 05/02/24 07:48 Dose: 1 tab Documented By: STEFF Nicotine (Nicotine 21 Mg Patch.Td24) 21 mg TRANSDERMA DAILY [facility] Last Admin: 05/02/24 07:46 Dose: 21 mg Documented By: STEFF Nicotine Polacrilex (Nicotine Polacrilex 2 Mg Gum) 2 mg BUCCAL Q1H PRN PRN Reason: Nicotine Cravings Last Admin: 05/02/24 12:14 Dose: 2 mg Documented By: CHRISSY Nicotine Polacrilex (Nicotine Polacrilex Lozenge 2 Mg Lozenge) 2 mg BUCCAL Q2H PRN PRN Reason: Nicotine Cravings Ondansetron HCl (Ondansetron Hcl 4 Mg/2 Ml Vial) 4 mg IVPUSH Q6H PRN PRN Reason: Nausea and Vomiting Last Admin: 04/29/24 03:54 Dose: 4 mg Documented By: LINDA Comments: given for nausea Pharmacy Consult (Consult Rx Etoh Phenob Im/Po) 1 each MISCELLANE ONCE PRN; Protocol PRN Reason: Consult order Phenobarbital (Phenobarbital 30 Mg Tablet) 60 mg PO BID [facility] Stop: 05/03/24 09:01 Last Admin: 05/02/24 07:48 Dose: 60 mg Documented By: STEFF Phenobarbital (Phenobarbital 30 Mg Tablet) 30 mg PO BID [facility] Stop: 05/05/24 09:01 Phenobarbital (Phenobarbital 30 Mg Tablet) 30 mg PO DAILY [facility] Stop: 05/07/24 09:01 Phenobarbital Sodium (Phenobarbital Sodium 130 Mg/Ml Vial) 130 mg IM Q4H PRN PRN Reason: breakthrough withdrawal Last Admin: 05/02/24 10:39 Dose: 130 mg Documented By: STEFF Polyethylene Glycol (Polyethylene Glycol 3350 17 Gm Powd.Pack) 17 gm PO DAILY [facility] Last Admin: 05/02/24 07:46 Dose: 17 gm Documented By: STEFF Senna (Sennosides 8.6 Mg Tablet) 17.2 mg PO DAILY [facility] Last Admin: 05/02/24 07:46 Dose: 17.2 mg Documented By: STEFF Sodium Chloride (0.9 % Sodium Chloride Flush 3 Ml Syringe) 3 ml IVFLUSH QSHIFT [facility] Last Admin: 05/02/24 07:46 Dose: 3 ml Documented By: STEFF Tamsulosin HCl (Tamsulosin Hcl 0.4 Mg Capsule) 0.8 mg PO BEDTIME [facility] Last Admin: 05/01/24 19:21 Dose: 0.8 mg Documented By: AISSATOU Thiamine HCl (Thiamine Hcl 100 Mg Tablet) 100 mg PO DAILY [facility] Last Admin: 05/02/24 07:47 Dose: 100 mg Documented By: STEFF Vitamin D (Cholecalciferol (Vitamin D3) 25 Mcg Tablet) 50 mcg PO DAILY [facility] Last Admin: 05/02/24 07:47 Dose: 50 mcg Documented By: STEFF Labs 04/26/24 06:18 04/28/24 10:14 Labs: Laboratory Results - last 24 hr 05/01/24 05/01/24 05/02/24 15:45 19:33 06:14 POC Glucose 169 H 163 H Total Bilirubin 0.2 Direct Bilirubin < 0.2 AST 40 H ALT 25 Alkaline Phosphatase 70 Total Protein 7.7 Albumin 4.1 05/02/24 05/02/24 07:08 11:02 POC Glucose 163 H 165 H Total Bilirubin Direct Bilirubin AST ALT Alkaline Phosphatase Total Protein Albumin Assessment and Plan (1) Alcohol withdrawal syndrome: Status: Acute Plan 63-year-old male with history of alcohol use disorder with history of alcohol withdrawal, alcohol withdrawal seizures and multiple admissions for alcohol withdrawal, opioid use disorder on Suboxone, history of aspiration, anxiety, depression, diabetes who presents to the emergency department acutely intoxicated seeking detox Toxic metabolic encephalopathy. Improving due to etoh withdrawal Seen evaluated by ICU attending, recommendation to schedule phenobarbital 130 mg IM every 3 hours, stopped lorazepam, no need for ICU transfer now on po phenobarb scheduled Alcohol use disorder with alcohol withdrawal History of severe alcohol withdrawal in the past with history of alcohol withdrawal seizures and multiple admissions requiring ICU level care CIWA trending down >IM phenobarbitol stopped changed to q4h prn breakthrough withdrawal Thiamine, folate, magnesium aspiration, seizure precautions addiction medicine DM2 SSI, POCs diabetic diet OUD continue suboxone Mood continue buspirone, duloxetine Neuropathy gabapentin BPH finasteride, flomax HTN metoprolol Smoker NRT Obesity class I. BMI 32.6 Discussed importance of weight management as this may be contributing to worsening of other comorbidities DVT ppx - lovenox Attending Dr. Mitchell Full code Quality Stroke Does the patient have a stroke diagnosis?: No VTE Prior VTE?: No VTE Risk Level:: Medical - moderate - high VTE Device Contraindication: N/A - Device Ordered VTE Drug Contraindication: N/A - Med Ordered
[2024-05-02 15:08] VITALS: BP 139/80; PULSE 86; RESP 20; TEMP 36.9; O2SAT 92
[2024-05-02] MEDS: Enoxaparin Sodium 40 MG/0.4 ML SYRINGE SUBCUT (15:28)
[2024-05-02 16:27] LABS: Glucose, Whole Blood 116 mg/dL (60-115)
[2024-05-02 19:41] VITALS: BP 164/89; PULSE 78; RESP 20; TEMP 36.6; O2SAT 93
[2024-05-02] MEDS: Tamsulosin HCL 0.4 MG CAPSULE 0.8 MG PO (19:45)
[2024-05-02] MEDS: Metoprolol Succinate ER 25 MG TAB.ER.24H PO (19:45)
[2024-05-02] MEDS: Atorvastatin Calcium 10 MG TABLET PO (19:45)
[2024-05-02] MEDS: traZODone HCL 100 MG TABLET 200 MG PO (21:04)
[2024-05-02 21:07] LABS: Glucose, Whole Blood 119 mg/dL (60-115)
[2024-05-02 23:21] VITALS: BP 119/78; PULSE 84; RESP 19; TEMP 36.4; O2SAT 93
[2024-05-03 04:00] VITALS: BP 117/84; PULSE 84; RESP 20; TEMP 36.4; O2SAT 93
[2024-05-03] MEDS: Nicotine Polacrilex 2 MG GUM BUCCAL ×2 (05:19→07:46)
[2024-05-03 07:23] LABS: Glucose, Whole Blood 204 mg/dL (60-115)
[2024-05-03 07:25] VITALS: BP 112/87; PULSE 90; RESP 18; TEMP 36.4; O2SAT 95
[2024-05-03] MEDS: Milk of Magnesia 30 ML ORAL.SUSP PO (07:45)
[2024-05-03] MEDS: Nicotine 21 MG PATCH.TD24 TRANSDERMA (07:45)
[2024-05-03] MEDS: Folic Acid 1 MG TABLET PO (07:45)
[2024-05-03] MEDS: polyethylene glycoL 3350 17 GM POWD.PACK PO (07:45)
[2024-05-03] MEDS: Finasteride 5 MG TABLET PO (07:45)
[2024-05-03] MEDS: Magnesium Oxide 400 MG TABLET PO (07:46)
[2024-05-03] MEDS: PHENobarbitaL 30 MG TABLET 60 MG PO (07:46)
[2024-05-03] MEDS: Thiamine HCL 100 MG TABLET PO (07:46)
[2024-05-03] MEDS: Cholecalciferol (Vitamin D3) 25 MCG TABLET 50 MCG PO (07:46)
[2024-05-03] MEDS: Gabapentin 300 MG CAPSULE 600 MG PO (07:46)
[2024-05-03] MEDS: DULoxetine HCl 60 MG CAPSULE.DR PO (07:46)
[2024-05-03] MEDS: busPIRone HCl 5 MG TABLET PO (07:46)
[2024-05-03] MEDS: Sennosides 8.6 MG TABLET 17.2 MG PO (07:47)
[2024-05-03] MEDS: Buprenorphine/Naloxone 8/2 mg FILM 2 FILM BUCCAL (07:47)
[2024-05-03] MEDS: Insulin Lispro 100 UNIT/ML 3 ML VIAL SUBCUT (07:48)
[2024-05-03] MEDS: 0.9 % Sodium Chloride Flush 3 ML SYRINGE IVFLUSH (07:49)
[2024-05-03] MEDS: Mineral Oil/Petrolatum,White 106 GM Tube 1 APPL TOPICAL (07:50)
[2024-05-03 11:11] LABS: Glucose, Whole Blood 180 mg/dL (60-115)
--- NOTE | 2024-05-03 11:27 | PM.DS ---
DS: Providers Provider Date of Service: 05/03/24 Date of admission: 04/25/24 15:10 Date of discharge: 05/03/24 Primary care physician: Estela Gupta MD Consults: 04/25/24 15:10 Addiction Medicine Routine Consulting Provider: Addiction Covering Reason for consultation: etoh withdrawal Has provider been notified: No 04/25/24 18:55 Addiction Medicine Routine Consulting Provider: Addiction Covering Reason for consultation: everyday alcohol use 04/28/24 07:41 Consult to Critical Care Routine Consulting Provider: Sage Flower Reason for consultation: etoh, hallucinations, ciwa 31 DS: Diagnosis Discharge Diagnosis (1) Alcohol withdrawal syndrome: Status: Acute DS: Summary Hospital Course Hospital Course: History and physical as per admitting provider. This is a 63 year old male with h/o AUD with history of severe alcohol withdrawal and alcohol withdrawal seizures, who presents to the ED seeking detox. In the emergency department his alcohol level was 246. He was given a dose of oral Ativan and then started on phenobarbital protocol and admission was requested for management of alcohol withdrawal. On exam the patient is somnolent but arousable however appears acutely intoxicated slurring his speech and immediately falling back asleep before fully answering questions. History is unable to be obtained from the patient directly- per chart review patient reportedly has been drinking 20 beers and a half a pt of vodka daily with his last drink prior to arrival in the emergency department. Supposedly he had a seizure at home a few days ago but was able to drink alcohol to prevent further seizures. 63-year-old man treated for alcohol abuse and withdrawal. Patient had a prolonged stay due to several days of continued withdrawal symptoms including hallucinations, confusion. He does have a history of alcohol withdrawal seizures but did not have any seizures this admission and did not require ICU level of care which she previously has. He was treated with scheduled phenobarbital as well as scheduled IM phenobarbital 130 mg every 3 hours for a few days. This seemed to help with breakthrough withdrawal. Patient then transitioned back to oral phenobarbital and today patient is doing much better. Patient was treated with thiamine, folate, magnesium. Plan will be to discharge patient home. Discussed the importance of alcohol cessation, patient states understanding. Diabetes mellitus type 2. Continue home medications History of substance abuse. Continue Suboxone Mental health. Continue buspirone and duloxetine Peripheral neuropathy likely secondary to alcohol abuse. Continue gabapentin BPH. Continue finasteride and Flomax Hypertension. Continue metoprolol Smoker. Treated with nicotine replacement. Encouraged smoking cessation Obesity class 1. BMI 32.6 Discussed importance of weight management as this may be contributing to worsening of other comorbidities Time Attestation Discharge Coordination Time (in mins): 40 Quality: Safe Use of Opioids Does Pt have an Active Cancer Diagnosis on the Problem List?: No Quality: Stroke Does the patient have a stroke diagnosis?: No Physical Exam Vital Signs: Vital Signs: Last Vital Signs Temp 97.5 F 05/03/24 07:25 Pulse 90 05/03/24 07:25 Resp 18 05/03/24 07:25 BP 112/87 05/03/24 07:25 Pulse Ox 95 05/03/24 07:25 O2 Del Method Room Air 05/03/24 07:25 O2 Flow Rate 2 04/30/24 15:39 BMI result Body Mass Index 32.6 Appearing in no acute distress head is normocephalic atraumatic eyes pupils are PERRLA sclera is anicteric mouth throat mucous membranes are intact and moist neck is supple no lymphadenopathy, no JVD noted lung sounds are clear to auscultation heart regular rate rhythm, clear S1, S2 positive bowel sounds, abdomen is soft, nontender neuro patient is alert x3, no focal deficits DS: Data Data Completed and Pending Completed studies during hospitalization [Text1]: Procedures Detoxification Services for Substance Abuse Treatment (11/29/23) Drainage of Bladder with Drainage Device, Via Natural or Artificial Opening (07/17/23) Insertion of Endotracheal Airway into Trachea, Via Natural or Artificial Opening (11/29/23) Introduction of Vasopressor into Peripheral Vein, Percutaneous Approach (07/17/23) Respiratory Ventilation, 24-96 Consecutive Hours (07/17/23) Respiratory Ventilation, Greater than 96 Consecutive Hours (11/29/23) Labs on day of discharge: Laboratory Results - last 24 hr 05/02/24 05/02/24 05/03/24 16:17 21:03 07:16 POC Glucose 116 H 119 H 204 H 05/03/24 11:04 POC Glucose 180 H Discharge Plan Discharge Anticipated Discharge Date/Time: 05/03/24 11:25 Patient Disposition: Home, Self-Care Discharge Diagnosis: Alcohol abuse and withdrawal Toxic metabolic encephalopathy Referrals: Gupta,Estela, MD [Primary Care Provider] - 1 Week Discharge Medications: Continued buspirone 5 mg Tablet 5 mg PO BID atorvastatin 20 mg Tablet 10 mg PO BEDTIME tamsulosin 0.4 mg Capsule 0.8 mg PO BEDTIME trazodone 100 mg Tablet 200 mg PO BEDTIME PRN (Reason: Insomnia) metformin 1,000 mg Tablet 1,000 mg PO DAILY finasteride 5 mg Tablet 5 mg PO DAILY melatonin 5 mg Tablet 5 mg PO BEDTIME buprenorphine-naloxone [Suboxone] 8-2 mg Film 2 film BUCCAL DAILY Rx Instructions: place 1 film on inside of (each) cheek hydroxyzine HCl 25 mg Tablet 25 mg PO BEDTIME PRN (Reason: Sleep) cyclobenzaprine 10 mg Tablet 10 mg PO TID PRN (Reason: Muscle Spasm) duloxetine 60 mg Capsule, Delayed Rel Sprinkle 60 mg PO DAILY vitamin B complex Tablet 1 tab PO Q48H testosterone 1.62 % (20.25 mg/1.25 gram) Gel In Packet 2 packet TRANSDERMAL DAILY Rx Instructions: apply 20.25 mg /1 packet to max area of EACH upper arm and shoulder sennosides [senna] 8.6 mg Tablet 17.2 mg PO DAILY metoprolol succinate 25 mg Tablet Extended Release 24 Hr 25 mg PO BEDTIME polyethylene glycol 3350 17 gram/dose Powder 17 g PO DAILY tadalafil 20 mg Tablet 20 mg PO Q3D PRN (Reason: Erectile Dysfunction) Rx Instructions: administer approximately 30min before sexual activity; do not use more than 1 dose per 72hrs cholecalciferol (vitamin D3) [Vitamin D3] 50 mcg (2,000 unit) Tablet 50 mcg PO DAILY magnesium oxide 400 mg magnesium Tablet 400 mg PO DAILY carboxymethylcellulose sodium 0.5 % Drops 1 drp OPHTHALMIC (EYE) QID gabapentin 300 mg Capsule 900 mg PO TID PRN (Reason: Pain) psyllium Powder 1 tsp PO DAILY PRN (Reason: Constipation) Rx Instructions: mix into at least 8 oz water or juice before administering Discharge Orders: Discharge Order (Routine); Ordered 05/03/24 Ordered By: Nelia Yanes Diet: Advance to usual diet Activity on Discharge: As tolerated Stand Alone Forms: Patient Portal Discharge page Print Language: Latvian Care Plan Goals: Stop drinking alcohol, seek outpatient assistance for help with this. Health Concerns: Alcohol abuse and withdrawal Toxic metabolic encephalopathy Plan of Treatment: Follow up with primary care provider as needed Take all medications as prescribed Assessment: See discharge summary
--- NOTE | 2024-05-03 12:10 | MHC.CM.PN ---
PT CLEARED TO DC HOME TODAY WITH NO SERVICES VIA PRIVATE TRANSPORT
== END 2024-05-03 13:53 | disposition home or self-care (01) | DRG 897 ==
LOC: HO.ED 14:14 → HO.EDOVER 15:26 → HO.IMC 17:25
PROVIDERS: Physician Assistant Medical; Registered Nurse Emergency; Admitting Provider Physician Assistant Medical; Emergency Provider Emergency Medicine; PCP Internal Medicine; Visit Provider Nurse Practitioner Acute Care
DX: F10.231 Alcohol dependence with withdrawal delirium (principal); F11.20 Opioid dependence, uncomplicated; F10.229 Alcohol dependence with intoxication, unspecified; E66.811 Obesity, class 1; N40.0 Benign prostatic hyperplasia without lower urinary tract symptoms; I10 Essential (primary) hypertension; E11.40 Type 2 diabetes mellitus with diabetic neuropathy, unspecified; Z68.32 Body mass index [BMI] 32.0-32.9, adult; Z71.3 Dietary counseling and surveillance; E78.5 Hyperlipidemia, unspecified; Y90.8 Blood alcohol level of 240 mg/100 ml or more; Z87.891 Personal history of nicotine dependence; Z20.822 Contact with and (suspected) exposure to COVID-19; Z79.84 Long term (current) use of oral hypoglycemic drugs; Z79.899 Other long term (current) drug therapy
CPT/HCPCS: 0241U; 36415; 71046; 80048; 80053; 80076; 80307; 81001; 82947; 83690; 83735; 85025; 85027; 93005; 97161; 99285; J1200; J1630; J1650; J2060; J2359; J2405; J2470; J2560; J3411; J7120; S9485

== ENCOUNTER → 2024-04-25 12:17 | Outpatient (BNV) | payer OTHER, SELFPAY | PROVIDERS: Emergency Provider Emergency Medicine; Visit Provider Radiology Diagnostic Radiology | DX: R05.9 Cough, unspecified (principal); R53.1 Weakness | CPT/HCPCS: 71046 ==

== ENCOUNTER → 2024-04-25 12:17 | Outpatient (BNV) | payer OTHER, SELFPAY | PROVIDERS: Admitting Provider Physician Assistant Medical; Emergency Provider Emergency Medicine; Visit Provider Internal Medicine Cardiovascular Disease | DX: R94.31 Abnormal electrocardiogram [ECG] [EKG] (principal) | CPT/HCPCS: 93010 ==

== ENCOUNTER → 2024-04-25 15:10 | Outpatient (BNV) | payer OTHER, SELFPAY | PROVIDERS: Admitting Provider Physician Assistant Medical; Emergency Provider Emergency Medicine; PCP Internal Medicine; Visit Provider Internal Medicine Critical Care Medicine | DX: F10.939 Alcohol use, unspecified with withdrawal, unspecified (principal) | CPT/HCPCS: 99222 ==

== ENCOUNTER → 2024-04-25 15:10 | Outpatient (BNV) | payer OTHER, SELFPAY | PROVIDERS: Admitting Provider Physician Assistant Medical; Emergency Provider Emergency Medicine; Visit Provider Nurse Practitioner Psychiatric/Mental Health | DX: F10.939 Alcohol use, unspecified with withdrawal, unspecified (principal) | CPT/HCPCS: 99222 ==

== ENCOUNTER → 2024-04-25 15:10 | Outpatient (BNV) | payer OTHER, SELFPAY | PROVIDERS: Admitting Provider Physician Assistant Medical; Emergency Provider Emergency Medicine; Visit Provider Physician Assistant Medical | DX: F10.239 Alcohol dependence with withdrawal, unspecified (principal) | CPT/HCPCS: 99223; 99232 ==

== ENCOUNTER 2024-06-12 12:59 | Inpatient (IN) | payer OTHER, SELFPAY ==
[2024-06-12] VITALS (20 sets, daily range): BP systolic 99–160; BP diastolic 62–98; PULSE 93–125; RESP 12–22; TEMP 36.6–37.4; O2SAT 90–98; BMI 25.1
--- NOTE | ~2024-06-12 | CT_ITS ---
EXAMINATION: CT CHEST WITH CONTRAST CLINICAL INFORMATION: Shortness of breath, rule out aspiration. COMPARISON: None available. Correlation made with chest x-ray dated earlier same day. TECHNIQUE: Multidetector volumetric CT imaging of the chest was obtained after the administration of 65 mL of Omnipaque 350 intravenous contrast without immediate adverse reactions. Axial MIP volume rendering provided. Sagittal and coronal reformatted images were obtained. This CT examination was performed using dose optimization techniques as appropriate, variously including the following: *Automated exposure control *Adjustment of mA and/or kV according to patient size (this includes techniques or standardized protocols for targeted exams where dose is matched to indication/reason for exam; i.e. extremities or head) *Use of iterative reconstruction technique FINDINGS: Exam significantly degraded by respiratory motion artifact. This is particularly notable in the inferior thorax. This limits the sensitivity of the exam. LUNGS: Within confines of respiratory motion, the lungs are clear without abnormal consolidation or opacity. There are no effusions. There is no pneumothorax. Small airways appear normal. Central airways are patent. No suspicious nodules allowing for motion. MEDIASTINUM: Normal thyroid. There are a few small mediastinal lymph nodes without pathologic adenopathy noted. No masses. Main pulmonary artery is normal in size. The aorta is normal in caliber and contour. No significant atheromatous disease. Great vessels are patent. No esophageal abnormality. Heart size normal. No pericardial effusion. AXILLA/CHEST WALL: No masses or abnormal lymph nodes. UPPER ABDOMEN: Diffuse fatty infiltration of the liver. Cholecystectomy. Small, lobular residual spleen with localized splenosis. Remainder the imaged upper abdominal structures appear normal. OSSEOUS STRUCTURES: No suspicious lytic or blastic bone lesion. There are healed left rib fractures. There are mild degenerative changes in the thoracic spine. CT/CT chest w IV con IMPRESSION: 1. Exam significantly degraded by motion artifact. Within these confines, no definite pneumonia or active pulmonary disease identified. No effusions. 2. Diffuse fatty infiltration of the liver. Cholecystectomy. 3. Ancillary findings as discussed. Electronically signed by: Adrian Lopez MD 06/12/2024 04:34 PM EDT
--- NOTE | ~2024-06-12 | XR_ITS ---
EXAMINATION: XR CHEST CLINICAL INFORMATION: hypoxia COMPARISON: 06/12/2024. TECHNIQUE: AP view of the chest was obtained. FINDINGS: The cardiac, hilar, and mediastinal contours are normal. Low lung volumes, with mild bronchovascular crowding in the perihilar regions. Within these confines, lungs appear grossly clear. No consolidations. No pneumothorax or effusion. No focal osseous or soft tissue abnormality. XR/XR chest 1V IMPRESSION: 1. Low lung volumes with bronchovascular crowding in both perihilar regions. Within these confines, no definite active pulmonary disease. Electronically signed by: Adrian Lopez MD 06/16/2024 12:40 PM EDT
--- NOTE | ~2024-06-12 | XR_ITS ---
CLINICAL HISTORY: OG tube 1 view chest x-ray. Comparison: CR - XR CHEST 1V - 06/25/24 19:46 EDT Findings: Endotracheal tube in place with the distal tip 4.5 cm above the adrienne. An enteric tube is identified coursing below the diaphragm. The enteric tube is visualized coursing toward the right upper abdominal quadrant on 1 of the images, with the distal tip of the enteric tube is not included. The other radiographic image demonstrates the enteric tube tip over the left upper abdominal quadrant of the expected location of the proximal stomach with the enteric tube side hole near the gastroesophageal junction. This examination is limited by multiple structures overlying the patient. Normal heart size. No focal pulmonary consolidation, pneumothorax, or pleural effusion identified. Impression: 1. Enteric tube in 2 separate locations on the 2 provided images of the chest as described above. The enteric tube may need to be advanced if the side hole is still at the level of the gastroesophageal junction. 2. No radiographic evidence for an acute cardiopulmonary process. No focal pulmonary consolidation. This document has been electronically signed by: Mushtaq Poe MD on 06/26/2024 00:07:05
--- NOTE | ~2024-06-12 | XR_ITS ---
CLINICAL HISTORY: ETT OGT placement 1 view chest x-ray Comparison: 06/16/2024 Findings: Portions of the exam are obscured by overlying material. Visualized lungs are clear. Endotracheal tube is 7.6 cm above the adrienne. The exam is otherwise unchanged. IMPRESSION: 1. Improved appearance of the chest. This document has been electronically signed by: Dean Cordoba MD on 06/21/2024 07:13:11
--- NOTE | ~2024-06-12 | XR_ITS ---
CLINICAL HISTORY: NG tube placement Chest radiograph, 1 view Comparison: CR - XR CHEST 1V - 06/21/24 06:57 EDT Findings: The cardiomediastinal silhouette is not enlarged. Pulmonary vascularity is unremarkable. No focal consolidation or effusion. No pneumothorax. The endotracheal tube is estimated to terminate 3 cm above the adrienne, although the adrienne is not well visualized. Enteric tube terminates in the gastric fundus. IMPRESSION: Enteric tube terminates in the gastric fundus. This document has been electronically signed by: Shamar Barton DO on 06/21/2024 12:03:24
--- NOTE | ~2024-06-12 | XR_ITS ---
EXAMINATION: XR CHEST 1 VIEW HISTORY: sob ? aspiration COMPARISON: Comparison is made with the prior examination dated 04/25/2024. FINDINGS: A single AP portable view of the chest performed at 1:46 PM is submitted. The lungs are expanded and clear. There is no pleural effusion, pneumothorax, or pulmonary vascular congestion. The heart is normal in size. The bones are intact. XR/XR chest 1V IMPRESSION: No acute cardiopulmonary abnormality. Electronically signed by: Byron Larson MD 06/12/2024 02:02 PM EDT
--- NOTE | ~2024-06-12 | XR_ITS ---
CLINICAL HISTORY: ET OG TUBE 1 view chest x-ray Comparison: CR - XR CHEST 1V - 06/21/24 10:06 EDT Findings: The tip of endotracheal tube is 4 cm above adrienne. The distal tip of NG tube is poorly visualized. The lungs are clear. Normal size heart. No acute fracture. IMPRESSION: The distal tip of NG tube is probably coiling in the distal esophagus. X-ray of the upper abdomen is recommended. This document has been electronically signed by: Rosey eWbb MD on 06/25/2024 20:27:40
--- NOTE | 2024-06-12 13:00 | ED.GENADULT ---
HPI - General Adult General Chief complaint: ETOH/Substance Use Stated complaint: ETOH/ crisis Source: patient and EMS Mode of arrival: EMS Limitations: altered mental status History of Present Illness ED Provider: TONI Mancera HPI narrative: 63 year old male hx of hypertension, hyperlipidemia, diabetes mellitus, alcohol abuse disorder with history of alcohol withdrawal symptoms and alcohol withdrawal seizures once needing intubation for aspiration pneumonia presents to the emergency department with alcohol intoxication he drank 4 pt of 100 proof liquor. He presents w/ EMS very somnolent and confused. No reports of trauma. Patient unable to provide me much of a history. Related Data Home Medications ?Medication ?Instructions ?Recorded ?Confirmed atorvastatin 20 mg tablet 10 mg PO BEDTIME 11/21/22 04/25/24 buprenorphine 8 mg-naloxone 2 mg 2 film buccal DAILY 11/21/22 04/25/24 sublingual film (Suboxone) buspirone 5 mg tablet 5 mg PO BID 11/21/22 04/25/24 finasteride 5 mg tablet 5 mg PO DAILY 11/21/22 04/25/24 hydroxyzine HCl 25 mg tablet 25 mg PO BEDTIME PRN Sleep 11/21/22 04/25/24 melatonin 5 mg tablet 5 mg PO BEDTIME 11/21/22 04/25/24 metformin 1,000 mg tablet 1,000 mg PO DAILY 11/21/22 04/25/24 tamsulosin 0.4 mg capsule 0.8 mg PO BEDTIME 11/21/22 04/25/24 trazodone 100 mg tablet 200 mg PO BEDTIME PRN Insomnia 11/21/22 04/25/24 cyclobenzaprine 10 mg tablet 10 mg PO TID PRN Muscle Spasm 01/31/23 04/25/24 duloxetine 60 mg capsule,delayed 60 mg PO DAILY 07/17/23 04/25/24 release sprinkle testosterone 1.62 % (20.25 mg/1.25 2 packet transdermal DAILY 07/17/23 04/25/24 gram) transdermal gel packet vitamin B complex 1 tab PO Q48H 07/17/23 04/25/24 cholecalciferol (vitamin D3) 50 50 mcg PO DAILY 11/29/23 04/25/24 mcg (2,000 unit) tablet (Vitamin D3) magnesium oxide 400 mg PO DAILY 11/29/23 04/25/24 metoprolol succinate 25 mg 25 mg PO BEDTIME 11/29/23 04/25/24 tablet,extended release 24 hr polyethylene glycol 3350 17 17 g PO DAILY 11/29/23 04/25/24 gram/dose oral powder sennosides 8.6 mg tablet (senna) 17.2 mg PO DAILY 11/29/23 04/25/24 tadalafil 20 mg tablet 20 mg PO Q3D PRN Erectile 11/29/23 04/25/24 Dysfunction carboxymethylcellulose sodium 0.5 1 drp ophthalmic (eye) QID 04/25/24 04/25/24 % eye drops gabapentin 300 mg capsule 900 mg PO TID PRN Pain 04/25/24 04/25/24 psyllium 1 tsp PO DAILY PRN Constipation 04/25/24 04/25/24 Allergies Allergy/AdvReac Type Severity Reaction Status Date / Time No Known Allergies Allergy Verified 06/12/24 13:15 Review of Systems Review of Systems: Yes all other systems are reviewed and are negative [facility] Past Medical History Attestation statement: The following information was validated with the patient. Source: old records reviewed and nursing notes reviewed Medical History Alcohol use disorder, severe, dependence Alcohol abuse Hyperlipidemia Depression with anxiety Diabetes Hypertension Social History Social History Household Members: None Household Members Other:: Self with a dog{ Parker} Housing: House Do you presently have visiting nurse or other home services: No Alcohol intake: current Alcohol intake frequency: 3 or more drinks per day Alcohol type: beer and hard liquor Comment: Enrique Yanes NP discontinued 1:1 Sitter Patient Tobacco Use Status: Former Tobacco user Second Hand Smoke Exposure: No Substance Use Type: Marijuana Advance Directives: Yes Advance Directives on File: Yes Advance Directives Date on File: 07/30/23 service: Yes Physical Exam ED Vital Signs: Vital Signs - 24 hr 06/12/24 13:10 Temperature 98.0 F Pulse Rate 124 H Respiratory Rate 20 Blood Pressure 129/77 Pulse Oximetry 90 L Oxygen Delivery Method Room Air BMI result Body Mass Index 25.1 vss Appearance: Alert.? Oriented X1 person ( not place time or sitation) .? No acute distress.?+ appears intoxicated smells like alcohol, Head: Normocephalic, atraumatic, no step-offs or deformities Eyes: Pupils equal, round and reactive to light.?+ blood shot eyes ENT: Pharynx normal.? Neck: Normal inspection.? Neck supple.? CVS: Normal heart rate and rhythm.? Pulses normal.? Respiratory: No respiratory distress.? Breath sounds normal.? Abdomen: Soft and nontender.? Skin: Skin warm and dry.? Normal skin color.? Normal skin turgor.? Extremities: No lower extremity edema.? No calf ttp. 5/5 strength to bilateral upper and lower extremities Back: No midline tenderness, no C-spine tenderness, full range of motion, no CVA tenderness bilaterally Neuro: Oriented X 1.? No motor deficit.? No sensory deficit. CN 2-12 intact Course Reevaluation(s) Reevaluation #1: Patient is screaming out I do not feel like I want to . Ativan ordered patient is evidently agitated. Family here at the bedside, confirm no trauma. He was found in a recliner unable to get up. That is why they ended up calling for help. Time: 13:13 Reevaluation #2: Patient 90% on RA, 2 L NC applied. Viral testing added. CXR ordered. Time: 13:18 Reevaluation #3: CBC with slight leukocytosis 11.3 likely secondary to nausea, vomiting and dry heaving which patient is doing right now. Chemistry with no acute findings needing intervention. Salicylates, acetaminophen negative. Ethanol level 327. Would, RSV negative. Chest x-ray unremarkable. Will obtain CT of the chest to ensure patient did not aspirate as he remains hypoxic on 3-4 L NC Time: 14:45 Medications Administered Discontinued Medications Generic Name Dose Route Start Last Admin Trade Name Freq PRN Reason Stop Dose Admin Sodium Chloride 1,000 mls @ 999 mls/hr 06/12/24 13:15 06/12/24 13:36 Ns IV 06/12/24 14:15 999 mls/hr .Q1H1M ANA Administration Sodium Chloride 1,000 mls @ 999 mls/hr 06/12/24 13:15 06/12/24 13:36 Ns IV 06/12/24 14:15 999 mls/hr .Q1H1M ANA Administration Iohexol 100 ml 06/12/24 16:01 06/12/24 16:08 Iohexol 350 Mg/Ml 100 Ml Infus..Btl IV 06/12/24 16:02 65 ml ONCE ONE Administration Lorazepam 1 mg 06/12/24 13:12 06/12/24 13:35 Lorazepam 2 Mg/Ml Vial IVPUSH 06/12/24 13:13 1 mg ONCE ONE Administration Ondansetron HCl 4 mg 06/12/24 13:04 06/12/24 13:36 Ondansetron Hcl 4 Mg/2 Ml Vial IVPUSH 06/12/24 13:05 4 mg ONCE ONE Administration Pantoprazole Sodium 40 mg 06/12/24 14:21 06/12/24 14:34 Pantoprazole Sodium 40 Mg/10 Ml Vial IVPUSH 06/12/24 14:22 40 mg ONCE ONE Administration Phenobarbital Sodium 438 mg 06/12/24 14:30 06/12/24 14:52 Phenobarbital Sodium 130 Mg/Ml Im Once IM 06/12/24 14:31 438 mg ONCE ONE Administration Medical Decision Making Medical Decision Making MDM Narrative: 63-year-old male presents with acute alcohol intoxication. Reporting suicidal ideation. Exam patient's smells like alcohol he is evidently intoxicated. Patient is saturating 88% on room air. Placed on nasal cannula. History and physical exam concerning for alcohol intoxication possibly polysubstance abuse will rule also rule out aspiration pneumonia. Will rule out viral illness and metabolic derangements Plan labs, imaging, seizure precautions. Differential Diagnosis Differential Diagnoses: The differential diagnosis associated with the presentation includes (History and physical exam concerning for alcohol intoxication possibly polysubstance abuse will rule also rule out aspiration pneumonia. Will rule out viral illness and metabolic derangements) Admission/Observation Consideration of admission/observation: Escalation of care including admission/observation considered Lab Data [facility] Lab Attestation statement: I reviewed the patient's lab results. 06/12/24 13:28 06/12/24 14:03 Labs: Lab Results 06/12/24 06/12/24 Range/Units 13:28 14:03 WBC 11.3 H (4.8-10.8) X10*3/uL RBC 5.46 (4.60-5.80) X10*6/uL Hgb 16.8 (14.0-18.0) g/dl Hct 47.5 (42.0-52.0) % MCV 87.0 (80.0-98.0) fL MCH 30.8 (27.0-33.0) pg MCHC 35.4 (31.0-36.0) g/dl RDW 13.5 (11.0-16.0) % Plt Count 227 (160-400) X10*3/uL MPV 10.2 (9.4-12.4) fL Immature Gran % (Auto) 1.1 H (0.0-0.4) % Neut % (Auto) 69.1 (45-73) % Lymph % (Auto) 23.3 (20-40) % [place] % (Auto) 5.3 (2-11) % Eos % (Auto) 0.1 (0-4) % Baso % (Auto) 1.1 (0-2) % Lymph # (Auto) 2.6 (1.2-4.9) X10*3/uL [place] # (Auto) 0.6 (0.1-1.2) X10*3/uL Eos # (Auto) 0.0 (0.0-0.4) X10*3/uL Baso # (Auto) 0.1 (0.0-0.2) X10*3/uL Abs Immat Gran (auto) 0.13 H (0.00-0.03) X10*3/uL Absolute Neuts (auto) 7.8 (2.0-8.3) x10*3/uL Absolute Nucleated RBC 0.000 (0.0-0.012) X10*3/uL Nucleated RBC % (auto) 0.0 (0.0-0.2) /100WBC Smear Tech's Comments VERIFIED Sodium 143 (135-145) mmol/L Potassium 4.0 (3.3-5.1) mmol/L Chloride 107 (96-108) mmol/L Carbon Dioxide 21 L (22-29) mmol/L Anion Gap 19 (12-20) BUN 12 (9-16) mg/dL Creatinine 0.75 (0.5-1.4) mg/dL Estim Creat Clear Calc 101.3 Estimated GFR > 60 Random Glucose 117 H (60-115) mg/dL Calcium 8.7 (8.4-10.2) mg/dL Magnesium 1.8 (1.6-2.6) mg/dL Total Bilirubin 0.4 (0.0-1.0) mg/dL AST 34 (5-37) U/L ALT 26 (0-40) U/L Alkaline Phosphatase 70 (39-117) U/L Total Protein 7.2 (6.5-8.0) g/dL Albumin 4.2 (3.5-5.0) g/dL Salicylates < 5.0 L (15-30) mg/dL Acetaminophen < 3 (<30) mcg/mL Ethyl Alcohol 327 H* mg/dL Influenza Type A (PCR) NEGATIVE (Negative) Influenza Type B (PCR) NEGATIVE (Negative) RSV RNA Qual (PCR) NEGATIVE (Negative) SARS-CoV-2 RNA (RT-PCR) NEGATIVE (Negative) Radiology Impression Discussion of test interpretation with radiology: I have reviewed the radiologist's reading. Independent Historian Clinical information obtained from an independent historian. History obtained from or confirmed by: Other (sister ) Critical Care Time Critical Care Time Critical Care Time: Yes Total Critical Care Time: 35 Attestation: I attest to this time spent taking care of the patient, obtaining history, physical, reviewing labs, imaging, treatment of patients condition +/- specialist/hospitalist consult +/- procedure Discharge Plan Discharge Clinical Impression: Alcohol intoxication, Nausea & vomiting, Hypoxia Patient Disposition: Still a Patient Prescriptions: No Action buspirone 5 mg Tablet 5 mg PO BID atorvastatin 20 mg Tablet 10 mg PO BEDTIME tamsulosin 0.4 mg Capsule 0.8 mg PO BEDTIME trazodone 100 mg Tablet 200 mg PO BEDTIME PRN (Reason: Insomnia) metformin 1,000 mg Tablet 1,000 mg PO DAILY finasteride 5 mg Tablet 5 mg PO DAILY melatonin 5 mg Tablet 5 mg PO BEDTIME buprenorphine-naloxone [Suboxone] 8-2 mg Film 2 film BUCCAL DAILY Rx Instructions: place 1 film on inside of (each) cheek hydroxyzine HCl 25 mg Tablet 25 mg PO BEDTIME PRN (Reason: Sleep) cyclobenzaprine 10 mg Tablet 10 mg PO TID PRN (Reason: Muscle Spasm) duloxetine 60 mg Capsule, Delayed Rel Sprinkle 60 mg PO DAILY vitamin B complex Tablet 1 tab PO Q48H testosterone 1.62 % (20.25 mg/1.25 gram) Gel In Packet 2 packet TRANSDERMAL DAILY Rx Instructions: apply 20.25 mg /1 packet to max area of EACH upper arm and shoulder sennosides [senna] 8.6 mg Tablet 17.2 mg PO DAILY metoprolol succinate 25 mg Tablet Extended Release 24 Hr 25 mg PO BEDTIME polyethylene glycol 3350 17 gram/dose Powder 17 g PO DAILY tadalafil 20 mg Tablet 20 mg PO Q3D PRN (Reason: Erectile Dysfunction) Rx Instructions: administer approximately 30min before sexual activity; do not use more than 1 dose per 72hrs cholecalciferol (vitamin D3) [Vitamin D3] 50 mcg (2,000 unit) Tablet 50 mcg PO DAILY magnesium oxide 400 mg magnesium Tablet 400 mg PO DAILY carboxymethylcellulose sodium 0.5 % Drops 1 drp OPHTHALMIC (EYE) QID gabapentin 300 mg Capsule 900 mg PO TID PRN (Reason: Pain) psyllium Powder 1 tsp PO DAILY PRN (Reason: Constipation) Rx Instructions: mix into at least 8 oz water or juice before administering Print Language: Upper Sorbian
--- NOTE | 2024-06-12 13:24 | MHC.EDTECH ---
Pts belongings sent home with sister.
[2024-06-12] MEDS: LORazepam 2 MG/ML VIAL 1 MG IVPUSH (13:35)
[2024-06-12] MEDS: ondansetron HCL 4 MG/2 ML VIAL IVPUSH ×2 (13:36→19:29)
[2024-06-12] MEDS: 0.9 % Sodium Chloride 1,000 ML 999 ML IV ×3 (13:36→16:46)
[2024-06-12 13:43] LABS: Basophils Absolute Auto 0.1 X10*3/uL (0.0-0.2); Basophils Percent Auto 1.1 % (0-2); Eosinophils Percent Auto 0.1 % (0-4); Hematocrit 47.5 % (42.0-52.0); Hemoglobin 16.8 g/dl (14.0-18.0); Imm Gran Abs Auto 0.13 X10*3/uL (0.00-0.03); Imm Gran Pct Auto 1.1 % (0.0-0.4); Lymphocytes Absolute Auto 2.6 X10*3/uL (1.2-4.9); Lymphocytes Percent Auto 23.3 % (20-40); MANUAL DIFF FLAG SCAN; Mean Corpuscular HGB Conc 35.4 g/dl (31.0-36.0); Mean Corpuscular Hemoglobin 30.8 pg (27.0-33.0); Monocytes Absolute Auto 0.6 X10*3/uL (0.1-1.2); Monocytes Percent Auto 5.3 % (2-11); Neutrophils Absolute Auto 7.8 x10*3/uL (2.0-8.3); Neutrophils Percent Auto 69.1 % (45-73); PLT CLUMP 1; Red Blood Count 5.46 X10*6/uL (4.60-5.80); Red Cell Distribution Width 13.5 % (11.0-16.0); SCAN SMEAR FLAG 1
--- NOTE | 2024-06-12 13:44 | PC.NURSE ---
Placed on 4LPM oxygen via nasal cannula. Family (sister Meseret) at bedside. Patient is visibly intoxicated, smell of alcohol on breath. Sister Meseret lives with the patient and reports finding 9 pints of 100 proof liquor around the house, unsure how long it took him to consume all of this liquor, but wants more information about [address]. Changed into [facility] attire for crisis, sitter present. Belongings: shirt, zip-up sweater, pants, socks, & shoes placed into belongings bag & checked by security. No other substances/objects found. Sister to bring belongings home. Patient is tearful, vaguely stating that he wants to and told PA that he drank to kill himself. Sister reports history of depression and aspiration pneumonia. Past admissions for aspiration PNA and withdrawal. Sinus tachycardia on monitor, 120s. 95% on 4LPM via NC. Care ongoing by this RN.
[2024-06-12 14:03] LABS: Mean Platelet Volume 10.2 fL (9.4-12.4); Platelet Count 227 X10*3/uL (160-400); White Blood Count 11.3 X10*3/uL (4.8-10.8)
[2024-06-12 14:04] LABS: SLIDE REVIEW VERIFIED
[2024-06-12 14:23] LABS: Alanine Aminotransferase 26 U/L (0-40); Albumin Level 4.2 g/dL (3.5-5.0); Alkaline Phosphatase 70 U/L (39-117); Anion Gap 19 (12-20); Aspartate Amino Transferase 34 U/L (5-37); Bilirubin Total 0.4 mg/dL (0.0-1.0); Blood Urea Nitrogen 12 mg/dL (9-16); Calcium 8.7 mg/dL (8.4-10.2); Carbon Dioxide 21 mmol/L (22-29); Chloride 107 mmol/L (96-108); Creatinine Clr Calc Pharmacy 101.3; Estimated Glomerular Filt Rate > 60; Ethanol 327 mg/dL; Glucose Random 117 mg/dL (60-115); Magnesium 1.8 mg/dL (1.6-2.6); Sodium 143 mmol/L (135-145); Total Protein 7.2 g/dL (6.5-8.0)
[2024-06-12 14:25] LABS: Acetaminophen LAB < 3 mcg/mL (<30); Salicylate < 5.0 mg/dL (15-30)
[2024-06-12 14:26] LABS: Influenza A PCR NEGATIVE (Negative); Influenza B PCR NEGATIVE (Negative); Resp Syncy Virus RNA Qual PCR NEGATIVE (Negative); SARS COV2 PCR INHOUSE NEGATIVE (Negative)
[2024-06-12] MEDS: Pantoprazole Sodium 40 MG/10 ML VIAL IVPUSH (14:34)
[2024-06-12] MEDS: PHENobarbitaL sodium 130 MG/ML IM ONCE 438 MG IM (14:52)
--- NOTE | 2024-06-12 15:36 | PC.NURSE ---
Oxygen titrated from 4LPM to 2LPM via nasal cannula. TONI Mancera aware.
[2024-06-12] MEDS: iohexoL 350 MG/ML 100 ML INFUS..BTL IV (16:08)
[2024-06-12] MEDS: PHENobarbitaL sodium 130 MG/ML VIAL 260 MG IVPUSH (16:39)
--- NOTE | 2024-06-12 16:53 | PM.CCHP ---
History of Present Illness Date of Service: 06/12/24 Chief Complaint: Confusion 63-year-old male with past medical history of chronic alcoholism with history of severe alcohol withdrawal and alcohol withdrawal seizures with multiple admissions in the past ear for alcohol withdrawal syndromes was brought in to the ED by his sister after he was confused drink due to drinking a lot of alcohol. His alcohol levels are 320 but the patient is saying he is already in withdrawal and has some shakes. So MICU was consulted for admission Review of Systems Review of Systems: Unable to obtain as patient is confused PMFSH Past Medical History Medical History Alcohol use disorder, severe, dependence Alcohol abuse Hyperlipidemia Depression with anxiety Diabetes Hypertension Social History Social History Household Members: None Household Members Other:: Self with a dog{ Parker} Housing: House Do you presently have visiting nurse or other home services: No Alcohol intake: current Alcohol intake frequency: 3 or more drinks per day Alcohol type: beer and hard liquor Comment: Enrique Yanes NP discontinued 1:1 Sitter Patient Tobacco Use Status: Former Tobacco user Second Hand Smoke Exposure: No Substance Use Type: Marijuana Advance Directives: Yes Advance Directives on File: Yes Advance Directives Date on File: 07/30/23 service: Yes Meds Allergies Allergy/AdvReac Type Severity Reaction Status Date / Time No Known Allergies Allergy Verified 06/12/24 13:15 Active Medications: Current Medications Enoxaparin Sodium (Enoxaparin Sodium 40 Mg/0.4 Ml Syringe) 40 mg SUBCUT Q24H ANA Famotidine (Famotidine/Pf 20 Mg/2 Ml Vial) 20 mg IVPUSH BID ANA Azithromycin 500 mg/ Sodium (Chloride) 250 mls @ 125 mls/hr IV ONCE ONE Stop: 06/12/24 18:10 Sodium Chloride (Ns) 1,000 mls @ 999 mls/hr IV .Q1H1M ANA Stop: 06/12/24 17:45 Last Admin: 06/12/24 16:46 Dose: 999 mls/hr Dexmedetomidine HCl (Precedex) 400 mcg in 100 mls @ 0 mls/hr IVCONT .Q0M ANA; Protocol Ondansetron HCl (Ondansetron Hcl 4 Mg/2 Ml Vial) 4 mg IVPUSH Q8H PRN PRN Reason: Nausea and Vomiting Pharmacy Consult (Consult Rx Etoh Phenob Im/Po) 1 each MISCELLANE ONCE PRN; Protocol PRN Reason: Consult order Phenobarbital (Phenobarbital 15 Mg Tablet) 45 mg PO BID [facility] Stop: 06/14/24 21:01 Phenobarbital (Phenobarbital 30 Mg Tablet) 30 mg PO BID [facility] Stop: 06/16/24 21:01 Phenobarbital (Phenobarbital 15 Mg Tablet) 15 mg PO DAILY [facility] Stop: 06/18/24 09:01 Phenobarbital Sodium (Phenobarbital Sodium 130 Mg/Ml Vial Im Q3hx2) 328 mg IM Q3H [facility] Home Medications ?Medication ?Instructions ?Recorded ?Confirmed ?Last Taken ?Type atorvastatin 20 mg tablet 10 mg PO BEDTIME 11/21/22 04/25/24 07/16/23 History buprenorphine 8 mg-naloxone 2 mg 2 film buccal DAILY 11/21/22 04/25/24 07/17/23 History sublingual film (Suboxone) buspirone 5 mg tablet 5 mg PO BID 11/21/22 04/25/24 07/17/23 History finasteride 5 mg tablet 5 mg PO DAILY 11/21/22 04/25/24 07/17/23 History hydroxyzine HCl 25 mg tablet 25 mg PO BEDTIME PRN Sleep 11/21/22 04/25/24 07/16/23 History melatonin 5 mg tablet 5 mg PO BEDTIME 11/21/22 04/25/24 07/17/23 History metformin 1,000 mg tablet 1,000 mg PO DAILY 11/21/22 04/25/24 07/17/23 History tamsulosin 0.4 mg capsule 0.8 mg PO BEDTIME 11/21/22 04/25/24 07/16/23 History trazodone 100 mg tablet 200 mg PO BEDTIME PRN Insomnia 11/21/22 04/25/24 07/16/23 History cyclobenzaprine 10 mg tablet 10 mg PO TID PRN Muscle Spasm 01/31/23 04/25/24 Unknown History duloxetine 60 mg capsule,delayed 60 mg PO DAILY 07/17/23 04/25/24 07/17/23 History release sprinkle testosterone 1.62 % (20.25 mg/1.25 2 packet transdermal DAILY 07/17/23 04/25/2424 History gram) transdermal gel packet vitamin B complex 1 tab PO Q48H 07/17/23 04/25/24 07/17/23 History cholecalciferol (vitamin D3) 50 50 mcg PO DAILY 11/29/23 04/25/24 Unknown History mcg (2,000 unit) tablet (Vitamin D3) magnesium oxide 400 mg PO DAILY 11/29/23 04/25/24 Unknown History metoprolol succinate 25 mg 25 mg PO BEDTIME 11/29/23 04/25/24 Unknown History tablet,extended release 24 hr polyethylene glycol 3350 17 17 g PO DAILY 11/29/23 04/25/24 Unknown History gram/dose oral powder sennosides 8.6 mg tablet (senna) 17.2 mg PO DAILY 11/29/23 04/25/24 Unknown History tadalafil 20 mg tablet 20 mg PO Q3D PRN Erectile 11/29/23 04/25/24 Unknown History Dysfunction carboxymethylcellulose sodium 0.5 1 drp ophthalmic (eye) QID 04/25/24 04/25/24 Unknown History % eye drops gabapentin 300 mg capsule 900 mg PO TID PRN Pain 04/25/24 04/25/24 Unknown History psyllium 1 tsp PO DAILY PRN Constipation 04/25/24 04/25/24 Unknown History Physical Exam Vital Signs: Vital Signs: Last Vital Signs Temp 98.7 F 06/12/24 16:30 Pulse 120 H 06/12/24 16:30 Resp 22 H 06/12/24 16:30 BP 125/68 06/12/24 16:30 Pulse Ox 97 06/12/24 16:30 O2 Del Method Nasal Cannula 06/12/24 16:30 O2 Flow Rate 3 06/12/24 16:30 BMI result Body Mass Index 25.1 General: Middle-aged male, face and body red, confused and talking a lot in the ED Nutritional Appearance: well nourished and overweight Eyes: appearance normal, both eyes and all related structures; Alignment and Position: alignment normal and position normal Neck: No lymphadenopathy, no thyromegaly Resp: bilateral air entry equal, occasional added sounds present Cardio: Regular rate, regular rhythm; Heart sounds: S1 normal heart sound present and S2 normal heart sound present GI: soft, nontender, no guarding, no hepatosplenomegaly : bladder normal to inspection, bladder normal to palpation, no renal angle tenderness Skin: no rashes or lesions noted and elasticity normal Neuro: No focal deficits, moves all extremities Results Labs 06/12/24 13:28 06/12/24 14:03 Labs: Laboratory Results - last 24 hr 06/12/24 06/12/24 13:28 14:03 MCV 87.0 MCH 30.8 MCHC 35.4 RDW 13.5 Plt Count 227 MPV 10.2 Immature Gran % (Auto) 1.1 H Neut % (Auto) 69.1 Lymph % (Auto) 23.3 [place] % (Auto) 5.3 Eos % (Auto) 0.1 Baso % (Auto) 1.1 Lymph # (Auto) 2.6 [place] # (Auto) 0.6 Eos # (Auto) 0.0 Baso # (Auto) 0.1 Abs Immat Gran (auto) 0.13 H Absolute Neuts (auto) 7.8 Absolute Nucleated RBC 0.000 Nucleated RBC % (auto) 0.0 Smear Tech's Comments VERIFIED Anion Gap 19 Estim Creat Clear Calc 101.3 Estimated GFR > 60 Random Glucose 117 H Calcium 8.7 Magnesium 1.8 Total Bilirubin 0.4 AST 34 ALT 26 Alkaline Phosphatase 70 Total Protein 7.2 Albumin 4.2 Salicylates < 5.0 L Acetaminophen < 3 Ethyl Alcohol 327 H* Influenza Type A (PCR) NEGATIVE Influenza Type B (PCR) NEGATIVE RSV RNA Qual (PCR) NEGATIVE SARS-CoV-2 RNA (RT-PCR) NEGATIVE Imaging Radiologist's Impressions: Impressions Chest X-Ray 06/12/24 13:45 IMPRESSION: No acute cardiopulmonary abnormality. Electronically signed by: Byron Larson MD 06/12/2024 02:02 PM EDT RP Chest CT 06/12/24 15:59 IMPRESSION: 1. Exam significantly degraded by motion artifact. Within these confines, no definite pneumonia or active pulmonary disease identified. No effusions. 2. Diffuse fatty infiltration of the liver. Cholecystectomy. 3. Ancillary findings as discussed. Electronically signed by: Adrian Lopez MD 06/12/2024 04:34 PM EDT RP Assessment and Plan (1) Alcohol intoxication: Status: Acute (2) Nausea & vomiting: Status: Acute (3) Hypoxia: Status: Acute Plan Acute encephalopathy: Secondary to alcohol intoxication at present but we will soon go into alcohol withdrawal symptoms His alcohol levels are 327, and he is already feeling the withdrawal symptoms We will do phenobarbital IM protocol, currently receiving 1 g of phenobarbital in the ED We will do Precedex if needed Prophylaxis: Lovenox, famotidine
--- NOTE | 2024-06-12 17:08 | PC.NURSE ---
Patient self removed his IV access from his right wrist. This is the 2nd IV access that has been removed by the patient. TONI Mancera & MD Mundo aware. 1st IV access was in left AC, 2nd IV access was in right wrist. No access at this time. TONI Alexander attempting to obtain access with ultrasound guidance at this time. Care ongoing by this RN. Seizure pads in place, Sinus tachycardia 110s-120s on monitor. Plan for ICU admission.
--- NOTE | 2024-06-12 17:12 | MHC.EDTECH ---
This pct assumed care of Patient at 1500 ,vitals taken ,ELIZABET Lee is aware of Patient high heart rate ,Both sets of blood culture and lactic acid drawn and sent to lab.Patient was reposition and boosted up in bed ,Patient belongings list done ,Patient sister took Patient jamals home .1 :1 sitter at bed side .
[2024-06-12 17:15] LABS: Lactic Acid 6.5 mmol/L (0.5-2.0)
[2024-06-12 17:17] LABS: Phosphorus 3.2 mg/dL (2.7-4.5)
--- NOTE | 2024-06-12 17:20 | PC.NURSE ---
Lactic acid 6.5. MD Mundo aware. Continue to attempt obtaining IV access. ICU bed available.
--- NOTE | 2024-06-12 17:24 | PC.NURSE ---
18g IV access established by TONI Alexander to right bicep with ultrasound guidance.
[2024-06-12] MEDS: cefTRIAXone sodium 1 GM VIAL IVPUSH (17:35)
[2024-06-12] MEDS: Azithromycin 500 MG in 0.9 % Sodium Chloride 250 ML 125 MG IV (17:54)
[2024-06-12] MEDS: Enoxaparin Sodium 40 MG/0.4 ML SYRINGE SUBCUT (18:05)
[2024-06-12] MEDS: PHENobarbitaL sodium 130 MG/ML VIAL IM Q3Hx2 328 MG IM ×2 (18:05→22:57)
[2024-06-12 18:50] LABS: Reflex Lactate? Lactic Acid Added
[2024-06-12 19:04] LABS: Appearance Urine Clear; Color Urine Yellow; Glucose Urine UA Negative (Negative); Leukocyte Esterase Urine Negative (Negative); Nitrite Urine Negative (Negative); PH 5.5 (5.0-9.0); Specific Gravity - Urine >= 1.030 (1.005-1.025); UMIC TRIGGER UACC YES; Urine Blood Trace (Negative); Urine Ketones 15 mg/dL (Negative); Urine Protein 30 (1+) mg/dL (Neg-Trace)
--- NOTE | 2024-06-12 19:05 | PC.NURSE ---
The patient arrived at the ICU approx. at ? 1800? from ED. Transferred to ICU for management of alcohol withdrawal. Alert & oriented but drowsy, anxious, and? restless. Stating ? I want to ? 1:1 sitter at bedside. On 2L NC, lungs sounds clear. Sinus Tachy. Dr. Flower made aware. Phenobarbital IM given per MAY.?
[2024-06-12 19:09] LABS: Bacteria Urine None Seen (None Seen); Hyaline Casts Urine 0-2 /LPF (0-2); RBC Urine 0-2 /HPF (0-2); Squamous Epithelial Cell Urine 0-2 /HPF (0-2); WBC Urine 0-5 /HPF (0-5)
[2024-06-12 19:15] LABS: Amphetamine Screen Urine Not Detected (Not Detect); Barbiturates, Urine POSITIVE (Not Detect); Benzodiazepines Screen Urine Not Detected (Not Detect); Buprenorphine Scr Positive (Not Detect); Cannabinoid Screen Urine POSITIVE (Not Detect); Cocaine Screen Urine Not Detected (Not Detect); Fentanyl, urine Not Detected (Not Detect); Methadone Screen, Urine Not Detected (Not Detect); Opiate Screen Urine Not Detected (Not Detect); Oxycodone Screen Urine Not Detected (Not Detect); Phencyclidine Screen Urine Not Detected (Not Detect)
[2024-06-12] MEDS: dexmedeTOMIDidine HCL/NS 400 MCG/100 ML INFUS..BTL 19.88 MCG IVCONT (19:20)
--- NOTE | 2024-06-12 19:53 | PHA.MEDREC ---
Pharmacy Consult ? Medication Reconciliation Pharmacy has completed the medication reconciliation. Pt is unable to discuss medications at this time. Utilized list from [place] dated today and discharge instructions from this facility from 05/03/24 to complete med rec.
[2024-06-12] MEDS: Folic Acid 1 MG TABLET PO (20:04)
[2024-06-12] MEDS: Multivitamin TABLET 1 TAB PO (20:04)
[2024-06-12] MEDS: Thiamine HCL 100 MG TABLET PO (20:04)
[2024-06-12] MEDS: Famotidine/PF 20 MG/2 ML VIAL IVPUSH (20:06)
[2024-06-12 21:52] LABS: Reflex Lactate? 2 Y
[2024-06-12] MEDS: Metoprolol Tartrate 5 MG/5 ML VIAL IVPUSH (22:45)
[2024-06-13] VITALS (28 sets, daily range): BP systolic 102–152; BP diastolic 62–94; PULSE 57–100; RESP 13–28; TEMP 36.4–37.1; O2SAT 91–98
[2024-06-13 02:01] LABS: Glucose, Whole Blood 111 mg/dL (60-115)
[2024-06-13] MEDS: PHENobarbitaL sodium 130 MG/ML VIAL IM Q3Hx2 328 MG IM ×3 (02:57→23:08)
[2024-06-13] MEDS: dexmedeTOMIDidine HCL/NS 400 MCG/100 ML INFUS..BTL 11.93 MCG IVCONT ×3 (04:01→19:17)
[2024-06-13 04:58] LABS: MANUAL DIFF FLAG NO
[2024-06-13 05:00] LABS: Basophils Absolute Auto 0.1 X10*3/uL (0.0-0.2); Basophils Percent Auto 0.9 % (0-2); Eosinophils Absolute Auto 0.1 X10*3/uL (0.0-0.4); Eosinophils Percent Auto 0.9 % (0-4); Hematocrit 37.8 % (42.0-52.0); Hemoglobin 13.5 g/dl (14.0-18.0); Imm Gran Abs Auto 0.02 X10*3/uL (0.00-0.03); Imm Gran Pct Auto 0.2 % (0.0-0.4); Lymphocytes Absolute Auto 2.9 X10*3/uL (1.2-4.9); Lymphocytes Percent Auto 29.9 % (20-40); Mean Corpuscular HGB Conc 35.7 g/dl (31.0-36.0); Mean Corpuscular Hemoglobin 31.1 pg (27.0-33.0); Mean Corpuscular Volume 87.1 fL (80.0-98.0); Mean Platelet Volume 10.3 fL (9.4-12.4); Monocytes Percent Auto 10.1 % (2-11); Neutrophils Absolute Auto 5.7 x10*3/uL (2.0-8.3); Platelet Count 166 X10*3/uL (160-400); Red Blood Count 4.34 X10*6/uL (4.60-5.80); Red Cell Distribution Width 13.7 % (11.0-16.0); White Blood Count 9.7 X10*3/uL (4.8-10.8)
[2024-06-13 05:22] LABS: Alanine Aminotransferase 24 U/L (0-40); Albumin Level 3.4 g/dL (3.5-5.0); Alkaline Phosphatase 55 U/L (39-117); Anion Gap 11 (12-20); Aspartate Amino Transferase 40 U/L (5-37); Bilirubin Total 0.6 mg/dL (0.0-1.0); Blood Urea Nitrogen 12 mg/dL (9-16); Calcium 8.1 mg/dL (8.4-10.2); Carbon Dioxide 25 mmol/L (22-29); Chloride 107 mmol/L (96-108); Creatinine Clr Calc Pharmacy 92.7; Estimated Glomerular Filt Rate > 60; Glucose Random 172 mg/dL (60-115); Magnesium 1.6 mg/dL (1.6-2.6); Phosphorus 1.6 mg/dL (2.7-4.5); Sodium 139 mmol/L (135-145); Total Protein 5.9 g/dL (6.5-8.0)
--- NOTE | 2024-06-13 05:22 | PC.NURSE ---
asssumed care 1900, pt drowsy but anxious at times ciwas assessed q2hrs see assessments. scheduled pheno and precedex per emar ,...2240 pt HR up 150s pt offer no complaints, PA made aware, new order for 5mg IV lopressor given as ordered wih good effect. pt unable to void BS > 480 pt recieved 3l iVF, pt offered to stand to try and void multiple time but unable. new order for cooper cath. immediately 650cc clear yellow urine returned. 1;1 sifter at bedside for SI statements. plan of care ongoing at this time.
[2024-06-13] MEDS: Sodium,Potassium Phosphates POWD.PACK 2 PACKET PO ×5 (07:47→22:27)
[2024-06-13] MEDS: Thiamine HCL 100 MG TABLET PO (08:03)
[2024-06-13] MEDS: Famotidine/PF 20 MG/2 ML VIAL IVPUSH ×2 (08:03→20:20)
[2024-06-13] MEDS: Multivitamin TABLET 1 TAB PO (08:03)
[2024-06-13] MEDS: Folic Acid 1 MG TABLET PO (08:03)
[2024-06-13] MEDS: PHENobarbitaL 15 MG TABLET 45 MG PO ×2 (08:03→20:20)
--- NOTE | 2024-06-13 11:30 | MHC.CM.PN ---
CM ATTEMPTED TO MEET WITH PT IN ICU WHO IS IN A DEEP SLEEP WITH SITTER AT BEDSIDE. INFORMATION GLEANED FROM MOST RECENT STAY AT [facility] [place]: PT LIVES ALONE, NO SERVICES/DME AND IS FUNCTIONALLY INDEPENDENT. +HCP ON FILE PCP DR. LANGSTON AT [facility]. DP: HOME , NO SERVICES VS ADDICTION ASSISTANCE PROGRAM . CM WILL ATTEMPT TO SEE PT WHEN MORE ALERT.
[2024-06-13 11:39] LABS: Glucose, Whole Blood 151 mg/dL (60-115)
--- NOTE | 2024-06-13 11:41 | P.PNCC_ITS ---
Subjective Subjective Date of Service: 06/13/24 Critical Care Time (minutes): 35 Physical Exam 2 Vital Signs: Vital Signs: Last Vital Signs Temp 98.8 F 06/13/24 08:00 Pulse 77 06/13/24 11:00 Resp 20 06/13/24 11:00 BP 147/86 H 06/13/24 11:00 Pulse Ox 92 06/13/24 11:00 O2 Del Method Nasal Cannula 06/13/24 11:00 O2 Flow Rate 3 06/13/24 11:00 BMI result Body Mass Index 30.0 Objective Data Labs 06/13/24 04:52 06/13/24 04:52 Labs: Laboratory Results - last 24 hr 06/12/24 06/12/24 06/12/24 13:28 14:03 16:45 WBC 11.3 H RBC 5.46 Hgb 16.8 Hct 47.5 MCV 87.0 MCH 30.8 MCHC 35.4 RDW 13.5 Plt Count 227 MPV 10.2 Immature Gran % (Auto) 1.1 H Neut % (Auto) 69.1 Lymph % (Auto) 23.3 [place] % (Auto) 5.3 Eos % (Auto) 0.1 Baso % (Auto) 1.1 Lymph # (Auto) 2.6 [place] # (Auto) 0.6 Eos # (Auto) 0.0 Baso # (Auto) 0.1 Abs Immat Gran (auto) 0.13 H Absolute Neuts (auto) 7.8 Absolute Nucleated RBC 0.000 Nucleated RBC % (auto) 0.0 Smear Tech's Comments VERIFIED Sodium 143 Potassium 4.0 Chloride 107 Carbon Dioxide 21 L Anion Gap 19 BUN 12 Creatinine 0.75 Estim Creat Clear Calc 101.3 Estimated GFR > 60 POC Glucose Random Glucose 117 H Lactic Acid 6.5 H* Lactic Acid F/U @ 2Hr Lactic Acid F/U @ 4Hr Calcium 8.7 Phosphorus 3.2 Magnesium 1.8 Total Bilirubin 0.4 AST 34 ALT 26 Alkaline Phosphatase 70 Total Protein 7.2 Albumin 4.2 Urine Color Urine Appearance Urine pH Ur Specific [place] Urine Protein Urine Glucose (UA) Urine Ketones Urine Blood Urine Nitrite Ur Leukocyte Esterase Urine RBC Urine WBC Ur Squamous Epith Cells Urine Bacteria Hyaline Casts Salicylates < 5.0 L Urine Opiates Screen Ur Buprenorphine Scrn Ur Oxycodone Screen Urine Methadone Screen Urine Fentanyl Screen Acetaminophen < 3 Ur Barbiturates Screen Ur Phencyclidine Scrn Ur Amphetamines Screen U Benzodiazepines Scrn Urine Cocaine Screen U Marijuana (THC) Screen Ethyl Alcohol 327 H* Influenza Type A (PCR) NEGATIVE Influenza Type B (PCR) NEGATIVE RSV RNA Qual (PCR) NEGATIVE SARS-CoV-2 RNA (RT-PCR) NEGATIVE 06/12/24 06/12/24 06/12/24 18:57 19:41 20:20 WBC RBC Hgb Hct MCV MCH MCHC RDW Plt Count MPV Immature Gran % (Auto) Neut % (Auto) Lymph % (Auto) [place] % (Auto) Eos % (Auto) Baso % (Auto) Lymph # (Auto) [place] # (Auto) Eos # (Auto) Baso # (Auto) Abs Immat Gran (auto) Absolute Neuts (auto) Absolute Nucleated RBC Nucleated RBC % (auto) Smear Tech's Comments Sodium Potassium Chloride Carbon Dioxide Anion Gap BUN Creatinine Estim Creat Clear Calc Estimated GFR POC Glucose 111 Random Glucose Lactic Acid Lactic Acid F/U @ 2Hr 6.0 H* Lactic Acid F/U @ 4Hr Calcium Phosphorus Magnesium Total Bilirubin AST ALT Alkaline Phosphatase Total Protein Albumin Urine Color Yellow Urine Appearance Clear Urine pH 5.5 Ur Specific [place] >= 1.030 H Urine Protein 30 (1+) H Urine Glucose (UA) Negative Urine Ketones 15 Urine Blood Trace H Urine Nitrite Negative Ur Leukocyte Esterase Negative Urine RBC 0-2 Urine WBC 0-5 Ur Squamous Epith Cells 0-2 Urine Bacteria None Seen Hyaline Casts 0-2 Salicylates Urine Opiates Screen Not Detected Ur Buprenorphine Scrn Positive H Ur Oxycodone Screen Not Detected Urine Methadone Screen Not Detected Urine Fentanyl Screen Not Detected Acetaminophen Ur Barbiturates Screen POSITIVE H Ur Phencyclidine Scrn Not Detected Ur Amphetamines Screen Not Detected U Benzodiazepines Scrn Not Detected Urine Cocaine Screen Not Detected U Marijuana (THC) Screen POSITIVE H Ethyl Alcohol Influenza Type A (PCR) Influenza Type B (PCR) RSV RNA Qual (PCR) SARS-CoV-2 RNA (RT-PCR) 06/12/24 06/13/24 06/13/24 22:08 04:52 11:10 WBC 9.7 RBC 4.34 L D Hgb 13.5 L Hct 37.8 L D MCV 87.1 MCH 31.1 MCHC 35.7 RDW 13.7 Plt Count 166 D MPV 10.3 Immature Gran % (Auto) 0.2 Neut % (Auto) 58.0 Lymph % (Auto) 29.9 [place] % (Auto) 10.1 Eos % (Auto) 0.9 Baso % (Auto) 0.9 Lymph # (Auto) 2.9 [place] # (Auto) 1.0 Eos # (Auto) 0.1 Baso # (Auto) 0.1 Abs Immat Gran (auto) 0.02 Absolute Neuts (auto) 5.7 Absolute Nucleated RBC 0.000 Nucleated RBC % (auto) 0.0 Smear Tech's Comments Sodium 139 Potassium 4.0 Chloride 107 Carbon Dioxide 25 Anion Gap 11 L BUN 12 Creatinine 0.82 Estim Creat Clear Calc 92.7 Estimated GFR > 60 POC Glucose 151 H Random Glucose 172 H Lactic Acid Lactic Acid F/U @ 2Hr Lactic Acid F/U @ 4Hr 4.0 H* Calcium 8.1 L D Phosphorus 1.6 L Magnesium 1.6 Total Bilirubin 0.6 AST 40 H ALT 24 Alkaline Phosphatase 55 Total Protein 5.9 L Albumin 3.4 L Urine Color Urine Appearance Urine pH Ur Specific [place] Urine Protein Urine Glucose (UA) Urine Ketones Urine Blood Urine Nitrite Ur Leukocyte Esterase Urine RBC Urine WBC Ur Squamous Epith Cells Urine Bacteria Hyaline Casts Salicylates Urine Opiates Screen Ur Buprenorphine Scrn Ur Oxycodone Screen Urine Methadone Screen Urine Fentanyl Screen Acetaminophen Ur Barbiturates Screen Ur Phencyclidine Scrn Ur Amphetamines Screen U Benzodiazepines Scrn Urine Cocaine Screen U Marijuana (THC) Screen Ethyl Alcohol Influenza Type A (PCR) Influenza Type B (PCR) RSV RNA Qual (PCR) SARS-CoV-2 RNA (RT-PCR) Progress Note: A&P Assessment and plan (1) Alcohol intoxication: Status: Acute (2) Nausea & vomiting: Status: Acute (3) Hypoxia: Status: Acute Plan Acute encephalopathy: Secondary to alcohol intoxication at present but we will soon go into alcohol withdrawal symptoms His alcohol levels are 327, and he is already feeling the withdrawal symptoms continue phenobarbital IM as needed on Precedex drip Acute hypophosphatemia: secondary to poor reserves Prophylaxis: Lovenox, famotidine Quality Stroke Does the patient have a stroke diagnosis?: No VTE Prior VTE?: No VTE Risk Level:: Medical - low VTE Device Contraindication: N/A - Device Ordered VTE Drug Contraindication: N/A - Med Ordered
[2024-06-13] MEDS: Insulin Lispro 100 UNIT/ML 3 ML VIAL SUBCUT ×2 (16:48→20:20)
[2024-06-13] MEDS: Enoxaparin Sodium 40 MG/0.4 ML SYRINGE SUBCUT (17:05)
[2024-06-13] MEDS: Nicotine 14 MG PATCH.TD24 TRANSDERMA (17:05)
[2024-06-13 17:37] LABS: Glucose, Whole Blood 185 mg/dL (60-115)
--- NOTE | 2024-06-13 17:41 | PC.NURSE ---
Assumed care at 0700. Pt remains on precedex drip. Sitter in room for SI statements made upon admission. Pt denies current SI. Pt very drowsy, but rousable. Is confused and complains of weird hallucinations or dreams.? A&O except for time. CIWA scores varied throughout shift. Pt requested removal of cooper, which was performed at 1530; due to void at 2130. At end of shift, pt more awake, pleasant affect, A&O x 4. Pt repositions self in bed, standby to commode. Pheno administered per MAY. Precedex titrated per protocol, see MAR for details.?
[2024-06-13] MEDS: Nicotine 21 MG PATCH.TD24 TRANSDERMA (20:32)
[2024-06-13 21:25] LABS: Alanine Aminotransferase 22 U/L (0-40); Albumin Level 3.3 g/dL (3.5-5.0); Alkaline Phosphatase 57 U/L (39-117); Anion Gap 12 (12-20); Aspartate Amino Transferase 39 U/L (5-37); Bilirubin Total 0.7 mg/dL (0.0-1.0); Blood Urea Nitrogen 14 mg/dL (9-16); Calcium 8.2 mg/dL (8.4-10.2); Carbon Dioxide 24 mmol/L (22-29); Chloride 106 mmol/L (96-108); Estimated Glomerular Filt Rate > 60; Glucose Random 169 mg/dL (60-115); Magnesium 1.6 mg/dL (1.6-2.6); Phosphorus 2.5 mg/dL (2.7-4.5); Potassium 3.7 mmol/L (3.3-5.1); Sodium 138 mmol/L (135-145); Total Protein 5.6 g/dL (6.5-8.0)
[2024-06-13 21:47] LABS: Glucose, Whole Blood 157 mg/dL (60-115)
[2024-06-13] MEDS: Magnesium Sulfate/H2O 2 GM/50 ML PIGGYBACK IV (22:27)
[2024-06-14] VITALS (28 sets, daily range): BP systolic 104–147; BP diastolic 54–92; PULSE 50–91; RESP 10–25; TEMP 36.2–37; O2SAT 89–97; BMI 30.2
[2024-06-14] MEDS: PHENobarbitaL sodium 130 MG/ML VIAL IM Q3Hx2 328 MG IM ×6 (05:00→23:09)
[2024-06-14 05:33] LABS: MANUAL DIFF FLAG NO
[2024-06-14 05:35] LABS: Basophils Absolute Auto 0.1 X10*3/uL (0.0-0.2); Basophils Percent Auto 0.8 % (0-2); Eosinophils Absolute Auto 0.3 X10*3/uL (0.0-0.4); Eosinophils Percent Auto 3.3 % (0-4); Hematocrit 38.8 % (42.0-52.0); Hemoglobin 13.6 g/dl (14.0-18.0); Imm Gran Abs Auto 0.02 X10*3/uL (0.00-0.03); Imm Gran Pct Auto 0.2 % (0.0-0.4); Lymphocytes Absolute Auto 2.6 X10*3/uL (1.2-4.9); Lymphocytes Percent Auto 31.3 % (20-40); Mean Corpuscular HGB Conc 35.1 g/dl (31.0-36.0); Mean Corpuscular Hemoglobin 30.8 pg (27.0-33.0); Mean Platelet Volume 10.6 fL (9.4-12.4); Monocytes Absolute Auto 0.6 X10*3/uL (0.1-1.2); Monocytes Percent Auto 7.6 % (2-11); Neutrophils Absolute Auto 4.8 x10*3/uL (2.0-8.3); Neutrophils Percent Auto 56.8 % (45-73); Platelet Count 165 X10*3/uL (160-400); Red Blood Count 4.41 X10*6/uL (4.60-5.80); Red Cell Distribution Width 13.2 % (11.0-16.0); White Blood Count 8.4 X10*3/uL (4.8-10.8)
[2024-06-14] MEDS: dexmedeTOMIDidine HCL/NS 400 MCG/100 ML INFUS..BTL 7.95 MCG IVCONT (05:45)
[2024-06-14 05:53] LABS: Alanine Aminotransferase 23 U/L (0-40); Albumin Level 3.3 g/dL (3.5-5.0); Alkaline Phosphatase 57 U/L (39-117); Anion Gap 10 (12-20); Aspartate Amino Transferase 41 U/L (5-37); Bilirubin Total 0.8 mg/dL (0.0-1.0); Blood Urea Nitrogen 11 mg/dL (9-16); Calcium 8.2 mg/dL (8.4-10.2); Carbon Dioxide 25 mmol/L (22-29); Chloride 107 mmol/L (96-108); Creatinine Clr Calc Pharmacy 133.5; Estimated Glomerular Filt Rate > 60; Glucose Random 133 mg/dL (60-115); Magnesium 1.9 mg/dL (1.6-2.6); Potassium 3.3 mmol/L (3.3-5.1); Sodium 139 mmol/L (135-145); Total Protein 5.8 g/dL (6.5-8.0)
--- NOTE | 2024-06-14 06:34 | PC.NURSE ---
Assumed care 1899 - pt alert and oriented, vague?at times. Medicated with precedex and pheno for etoh w/d symptoms?- see MAR. See CIWA assessment . Pt oob, voiding on the commode.?
[2024-06-14] MEDS: Potassium Chloride Packet 20 MEQ PACKET 40 MEQ PO (07:46)
[2024-06-14] MEDS: PHENobarbitaL 15 MG TABLET 45 MG PO ×2 (07:46→19:40)
[2024-06-14] MEDS: Famotidine/PF 20 MG/2 ML VIAL IVPUSH ×2 (07:46→19:57)
[2024-06-14] MEDS: Multivitamin TABLET 1 TAB PO (07:46)
[2024-06-14] MEDS: Nicotine 21 MG PATCH.TD24 TRANSDERMA (07:46)
[2024-06-14] MEDS: Thiamine HCL 100 MG TABLET PO (07:46)
[2024-06-14] MEDS: Folic Acid 1 MG TABLET PO (07:46)
[2024-06-14] MEDS: Insulin Lispro 100 UNIT/ML 3 ML VIAL SUBCUT ×2 (08:02→11:53)
[2024-06-14 09:38] LABS: Glucose, Whole Blood 158 mg/dL (60-115)
--- NOTE | 2024-06-14 12:13 | P.PNCC_ITS ---
Subjective Subjective Date of Service: 06/14/24 Critical Care Time (minutes): 35 Comment: Continues to be on Precedex drip Mental status improving Physical Exam 2 Vital Signs: Vital Signs: Last Vital Signs Temp 98.6 F 06/14/24 08:00 Pulse 59 06/14/24 11:00 Resp 25 H 06/14/24 11:00 BP 137/86 06/14/24 11:00 Pulse Ox 96 06/14/24 11:00 O2 Del Method Nasal Cannula 06/14/24 11:00 O2 Flow Rate 1 06/14/24 11:00 BMI result Body Mass Index 30.2 General: Chronic ill appearing and tired appearing Nutritional Appearance: well nourished and overweight Eyes: appearance normal, both eyes and all related structures; Alignment and Position: alignment normal and position normal Neck: No lymphadenopathy, no thyromegaly Resp: bilateral air entry equal, occasional added sounds present Cardio: Regular rate, regular rhythm; Heart sounds: S1 normal heart sound present and S2 normal heart sound present GI: soft, nontender, no guarding, no hepatosplenomegaly : bladder normal to inspection, bladder normal to palpation, no renal angle tenderness Skin: no rashes or lesions noted and elasticity normal Neuro: Significant confusion present and moves all extremities Objective Data Labs 06/14/24 05:28 06/14/24 05:27 Labs: Laboratory Results - last 24 hr 06/13/24 06/13/24 06/13/24 16:30 20:12 20:54 WBC RBC Hgb Hct MCV MCH MCHC RDW Plt Count MPV Immature Gran % (Auto) Neut % (Auto) Lymph % (Auto) [place] % (Auto) Eos % (Auto) Baso % (Auto) Lymph # (Auto) [place] # (Auto) Eos # (Auto) Baso # (Auto) Abs Immat Gran (auto) Absolute Neuts (auto) Absolute Nucleated RBC Nucleated RBC % (auto) Sodium 138 Potassium 3.7 Chloride 106 Carbon Dioxide 24 Anion Gap 12 BUN 14 Creatinine 0.76 Estim Creat Clear Calc 112.0 Estimated GFR > 60 POC Glucose 185 H 157 H Random Glucose 169 H Calcium 8.2 L Phosphorus 2.5 L Magnesium 1.6 Total Bilirubin 0.7 AST 39 H ALT 22 Alkaline Phosphatase 57 Total Protein 5.6 L Albumin 3.3 L 06/14/24 06/14/24 06/14/24 05:27 05:28 07:31 WBC 8.4 RBC 4.41 L Hgb 13.6 L Hct 38.8 L MCV 88.0 MCH 30.8 MCHC 35.1 RDW 13.2 Plt Count 165 MPV 10.6 Immature Gran % (Auto) 0.2 Neut % (Auto) 56.8 Lymph % (Auto) 31.3 [place] % (Auto) 7.6 Eos % (Auto) 3.3 Baso % (Auto) 0.8 Lymph # (Auto) 2.6 [place] # (Auto) 0.6 Eos # (Auto) 0.3 Baso # (Auto) 0.1 Abs Immat Gran (auto) 0.02 Absolute Neuts (auto) 4.8 Absolute Nucleated RBC 0.000 Nucleated RBC % (auto) 0.0 Sodium 139 Potassium 3.3 Chloride 107 Carbon Dioxide 25 Anion Gap 10 L BUN 11 Creatinine 0.64 Estim Creat Clear Calc 133.5 Estimated GFR > 60 POC Glucose 158 H Random Glucose 133 H Calcium 8.2 L Phosphorus 3.0 Magnesium 1.9 Total Bilirubin 0.8 AST 41 H ALT 23 Alkaline Phosphatase 57 Total Protein 5.8 L Albumin 3.3 L Microbiology Microbiology Results: Microbiology 06/12/24 17:00 Blood - Venous Blood Culture - Preliminary No growth after 24 hours. 06/12/24 16:45 Blood - Venous Blood Culture - Preliminary No growth after 24 hours. Progress Note: A&P Assessment and plan (1) Alcohol intoxication: Status: Acute (2) Nausea & vomiting: Status: Acute (3) Hypoxia: Status: Acute Plan Acute encephalopathy: Secondary to alcohol intoxication at present but we will soon go into alcohol withdrawal symptoms upon admission alcohol levels were 327, and was having withdrawal symptoms continue phenobarbital IM as needed on Precedex drip Acute hypophosphatemia: secondary to poor reserves Prophylaxis: Lovenox, famotidine Quality Stroke Does the patient have a stroke diagnosis?: No VTE Prior VTE?: No VTE Risk Level:: Medical - low VTE Device Contraindication: N/A - Device Ordered VTE Drug Contraindication: N/A - Med Ordered
[2024-06-14 12:59] LABS: Glucose, Whole Blood 153 mg/dL (60-115)
[2024-06-14] MEDS: dexmedeTOMIDidine HCL/NS 400 MCG/100 ML INFUS..BTL 11.93 MCG IVCONT (13:24)
[2024-06-14] MEDS: Enoxaparin Sodium 40 MG/0.4 ML SYRINGE SUBCUT (18:15)
[2024-06-14] MEDS: dexmedeTOMIDidine HCL/NS 400 MCG/100 ML INFUS..BTL 21.86 MCG IVCONT (19:14)
--- NOTE | 2024-06-14 19:27 | PC.NURSE ---
Neuro: Patient on Precedex this morning, requesting IM Phenobarbital, PO given but continued to request IM, IM given as ordered per MD, continued to get IM Phenobarbital as ordered, this evening patient requested to leave, but unable to leave AMA, as patient came in for SI as per sister. Precedex increased as patient pulling at lines, agitated and requesting to leave, decreased when patient became calm and redirectable, continues on Precedex, see MAR Cardiac: SB to SR this shift, noted SB with Precedex increase, decreased to maintain patient comfortable while maintaining HR above 50, MD aware Resp: Lung sounds diminished but O2 Sat 90-93% on 2L via NC. GI/: Diabetic Diet, tolerating well.? Integumentary/Musculoskeletal: skin intact, repositions self in bed, OOB to commode.
[2024-06-14 21:05] LABS: Glucose, Whole Blood 133 mg/dL (60-115)
[2024-06-14 21:06] LABS: Glucose, Whole Blood 135 mg/dL (60-115)
[2024-06-14] MEDS: hydrOXYzine HCL 25 MG TABLET PO (23:21)
[2024-06-14] MEDS: chlordiazePOXIDE HCl 25 MG CAPSULE 50 MG PO (23:46)
[2024-06-15] VITALS (16 sets, daily range): BP systolic 104–169; BP diastolic 62–97; PULSE 78–113; RESP 10–20; TEMP 36.1–37; O2SAT 92–99; BMI 30.8
[2024-06-15] MEDS: Buprenorphine/Naloxone 8/2 mg FILM 2 FILM BUCCAL ×2 (00:27→21:03)
[2024-06-15] MEDS: busPIRone HCl 5 MG TABLET PO ×3 (00:32→20:58)
--- NOTE | 2024-06-15 01:38 | PC.NURSE ---
CARE ASSUMED 7PM..INITIALLY RESTFUL..IRRITABLE WITH CARE THOUGH...MONITOR SINUSBRADYCARDIA HR 45-48 AT REST...PRECIDEX DRIP WEANED TO 0.5 MCG/KG/HR...RESTLESS AND INCREASIGLY AGITATED....PRN PHENOBARNITOL 328MH IM GIVEN..STATED WHAT THE FUCK IS THAT FOR ..REORIENTED PATIENT THAT HE PREVIOUSLY REQUESTED IM DOSE BECAUSE THE PILLS DON'T DO CIRILO SHIT ... THIS IS ALL BULLSHIT...I'M GOING HOME NOW . CLIMBING OOB AND PULLING OFF BP CUFF/WIRES AND ATTEMPTING TO PULL OUT IV ACCESS. PROVIDER AT BEDSIDE..REORIENTED PATIENT THAT UNABLE TO LEAVE FACILITY D/T PREVIOUS SUICIDAL IDEATION...PATIENT STATED I'M LEAVING AND I'M GOING TO PUNCH SOMEONE IN THE HEAD IF I'M STOPPPED . SECURITY AT BEDSIDE..HS PO PHENOBARBITOL PO GIVEN PER PROVIDER..ASSISTED BACK TO BED...1:1 SITTER REMAINS AT BEDSIDE...PRECIDEX DRIP WEANED OFF 9PM PER PROVIDER FOR CONTINUED BRADYCARDIA AT REST...INCREASED AGITATION 11PM...DEMANDS RELEASE FROM HOSPITAL...C/O ABDOMINAL CRAMPING AND INCREASED RESTLESSNESS...REPEAT PHENOBARBITOL IM GIVEN 23:09 W/O EFFECT...ATARAX 23MG PO X1 23 21 W/O EFFECT...LIBRIUM 50 MG PO GIVEN W/O EFFECT..CONTINUES TO WANT/ATTEMPT TO LEAVE...REMINDED THAT PREVIOUISLY STATED HE WAS SUICIDAL MULTIPLE TIMES AND NEEDS TO BE CLEARED FOR DISCHARGE...C/O INCREASED WITHDRAWL SYMPTOMS....SECURITY AND PROVIDER AND BEDSIDE...HOME MEDS REVIEWED...SUBOXONE 2 FILMS AND BUSPAR 5MG PO GIVEN..STATED FEELING MUCH BETTER NOW'...RESTFUL...AWAKE AND ALERT WHEN ASSESSED..NAPPING INTERMITTANTLY
[2024-06-15] MEDS: Cyclobenzaprine HCl 10 MG TABLET PO (04:03)
[2024-06-15 04:57] LABS: Hemoglobin 13.5 g/dl (14.0-18.0); Mean Corpuscular HGB Conc 35.5 g/dl (31.0-36.0); Mean Corpuscular Hemoglobin 31.3 pg (27.0-33.0); Mean Platelet Volume 10.9 fL (9.4-12.4); Platelet Count 158 X10*3/uL (160-400); Red Blood Count 4.32 X10*6/uL (4.60-5.80); Red Cell Distribution Width 13.1 % (11.0-16.0); White Blood Count 9.6 X10*3/uL (4.8-10.8)
[2024-06-15 05:14] LABS: Alanine Aminotransferase 30 U/L (0-40); Albumin Level 3.6 g/dL (3.5-5.0); Alkaline Phosphatase 68 U/L (39-117); Anion Gap 13 (12-20); Aspartate Amino Transferase 59 U/L (5-37); Bilirubin Total 0.8 mg/dL (0.0-1.0); Blood Urea Nitrogen 10 mg/dL (9-16); Calcium 8.4 mg/dL (8.4-10.2); Carbon Dioxide 27 mmol/L (22-29); Chloride 107 mmol/L (96-108); Creatinine Clr Calc Pharmacy 113.4; Estimated Glomerular Filt Rate > 60; Glucose Random 112 mg/dL (60-115); Potassium 3.6 mmol/L (3.3-5.1); Sodium 143 mmol/L (135-145); Total Protein 6.1 g/dL (6.5-8.0)
[2024-06-15] MEDS: chlordiazePOXIDE HCl 25 MG CAPSULE PO (05:14)
[2024-06-15 08:13] LABS: Glucose, Whole Blood 121 mg/dL (60-115)
[2024-06-15] MEDS: Famotidine/PF 20 MG/2 ML VIAL IVPUSH (08:33)
[2024-06-15] MEDS: Thiamine HCL 100 MG TABLET PO (08:34)
[2024-06-15] MEDS: Nicotine 21 MG PATCH.TD24 TRANSDERMA (08:34)
[2024-06-15] MEDS: Magnesium Oxide 400 MG TABLET PO (08:34)
[2024-06-15] MEDS: Multivitamin TABLET 1 TAB PO (08:34)
[2024-06-15] MEDS: Finasteride 5 MG TABLET PO (08:34)
[2024-06-15] MEDS: Folic Acid 1 MG TABLET PO (08:34)
[2024-06-15] MEDS: PHENobarbitaL 30 MG TABLET PO ×2 (08:34→20:58)
[2024-06-15] MEDS: DULoxetine HCl 30 MG CAPSULE.DR PO (10:04)
[2024-06-15] MEDS: DULoxetine HCl 60 MG CAPSULE.DR PO (10:04)
[2024-06-15] MEDS: Metoprolol Succinate ER 25 MG TAB.ER.24H PO (10:04)
--- NOTE | 2024-06-15 10:13 | P.PNCC_ITS ---
Subjective Subjective Date of Service: 06/15/24 Interval History: 3-year-old history alcohol dependence with prior withdrawal, diabetes mellitus and depression anxiety admitted on 06/12/2024 with alcohol intoxication and withdrawal requiring sedative drips and ICU level of monitoring. Toxic encephalopathy secondary to delirium tremens significantly improved and patient has been titrated off sedative drips. No events overnight. Critical Care Time (minutes): 0 Physical Exam 2 Vital Signs: Vital Signs: Last Vital Signs Temp 97.6 F 06/15/24 08:00 Pulse 101 H 06/15/24 09:00 Resp 10 L 06/15/24 09:00 BP 166/85 H 06/15/24 09:00 Pulse Ox 99 06/15/24 09:00 O2 Del Method Nasal Cannula 06/15/24 09:00 O2 Flow Rate 2 06/15/24 09:00 BMI result Body Mass Index 30.8 Const: General: no acute distress, alert and awake Eyes: Sclerae: sclerae normal EOM: EOMs intact bilaterally Neck: Neck: Yes no lymphadenopathy, Yes trachea midline and Yes supple Resp: Effort & Inspection: normal respiratory effort and no respiratory distress Auscultation: clear to auscultation bilaterally Cardio: Rate: regular rate Rhythm: regular rhythm Heart sounds: no gallops, no murmurs and no rubs GI: Palpation (GI): Soft to palpation and Other GI palpation findings present ( Nontender) Auscultation: normal bowel sounds Extrem: General: Yes no pedal edema, No clubbing and No cyanosis Objective Data Labs 06/15/24 04:38 06/15/24 04:38 Labs: Laboratory Results - last 24 hr 06/14/24 06/14/24 06/14/24 11:34 17:07 19:56 WBC RBC Hgb Hct MCV MCH MCHC RDW Plt Count MPV Absolute Nucleated RBC Nucleated RBC % (auto) Sodium Potassium Chloride Carbon Dioxide Anion Gap BUN Creatinine Estim Creat Clear Calc Estimated GFR POC Glucose 153 H 133 H 135 H Random Glucose Calcium Total Bilirubin AST ALT Alkaline Phosphatase Total Protein Albumin 06/15/24 06/15/24 04:38 07:41 WBC 9.6 RBC 4.32 L Hgb 13.5 L Hct 38.0 L MCV 88.0 MCH 31.3 MCHC 35.5 RDW 13.1 Plt Count 158 L MPV 10.9 Absolute Nucleated RBC 0.000 Nucleated RBC % (auto) 0.0 Sodium 143 Potassium 3.6 Chloride 107 Carbon Dioxide 27 Anion Gap 13 BUN 10 Creatinine 0.76 Estim Creat Clear Calc 113.4 Estimated GFR > 60 POC Glucose 121 H Random Glucose 112 Calcium 8.4 Total Bilirubin 0.8 AST 59 H ALT 30 Alkaline Phosphatase 68 Total Protein 6.1 L Albumin 3.6 Microbiology Microbiology Results: Microbiology 06/12/24 17:00 Blood - Venous Blood Culture - Preliminary No growth after 48 hours. 06/12/24 16:45 Blood - Venous Blood Culture - Preliminary No growth after 48 hours. Progress Note: A&P Assessment and plan (1) Delirium tremens: Status: Acute (2) Hypertension: Status: Acute (3) Diabetes: Status: Acute Plan Assessment: 63-year-old gentleman admitted with alcohol intoxication further complicated by delirium tremens requiring sedative drips, now improved Plan: Neuro: Delirium tremens, improved, titrate off sedative drips, continue on CIWA/phenobarbital protocol and p.r.n. phenobarbital. Cardiac: No acute issues. Underlying hypertension and tachycardia, restarted on Toprol-XL. Pulmonary: No acute issues. Renal: No acute issues. Endo: No acute issues. Underlying diabetes mellitus continue sliding scale insulin. GI: No acute issues. ID: No acute issues Heme/Onc: No acute issues. Psych: No acute issues. Miscellaneous: No acute issues. Prophylaxis: Lovenox Diet: Diabetic Quality Stroke Does the patient have a stroke diagnosis?: No VTE Prior VTE?: No VTE Risk Level:: Medical - low VTE Device Contraindication: N/A - Device Ordered VTE Drug Contraindication: N/A - Med Ordered
[2024-06-15 11:21] LABS: Glucose, Whole Blood 115 mg/dL (60-115)
--- NOTE | 2024-06-15 12:16 | PM.EVENT ---
Event Note Date of Service: 06/15/24 Event Note: ICU transfer, discussed with ICU attending. Treated for alcohol intoxication with withdrawal. Off of Precedex drip, still on phenobarbital protocol Time Spent With Patient Time: Total time managing care of this patient today ____ minutes.
[2024-06-15] MEDS: PHENobarbitaL 30 MG TABLET 60 MG PO ×2 (16:13→21:58)
[2024-06-15] MEDS: Insulin Lispro 100 UNIT/ML 3 ML VIAL SUBCUT (16:46)
[2024-06-15 18:01] LABS: Glucose, Whole Blood 172 mg/dL (60-115)
[2024-06-15] MEDS: Tamsulosin HCL 0.4 MG CAPSULE 0.8 MG PO (20:57)
[2024-06-15] MEDS: Enoxaparin Sodium 40 MG/0.4 ML SYRINGE SUBCUT (20:58)
[2024-06-15 21:22] LABS: Glucose, Whole Blood 117 mg/dL (60-115)
--- NOTE | 2024-06-15 22:02 | PC.NURSE ---
Patient becoming increasingly agitated, restless, and trying to get out of bed. Sitter and camera at bedside for safety. PRN 360mg phenobarbital administered at 2200. VSS. on room air, NSR on tele. Alert and oriented x 3.
--- NOTE | 2024-06-16 | ECG_ITS ---
Test Reason : hypoxia, arrythmia Blood Pressure : */* mmHG Vent. Rate : 86 BPM Atrial Rate : 86 BPM P-R Int : 178 ms QRS Dur : 96 ms QT Int : 362 ms P-R-T Axes : 26 -21 30 degrees QTcB Int : 433 ms Normal sinus rhythm Minimal voltage criteria for LVH, may be normal variant ( [place] product ) Borderline ECG When compared with ECG of 25-Apr-2024 12:34, No significant change was found Referred By: Nelia Yanes Electronically Signed By: HERLINDA BRIGHT
[2024-06-16 03:36] VITALS: BP 160/92; PULSE 120; RESP 9; TEMP 36.9; O2SAT 88
[2024-06-16 07:31] VITALS: BP 120/98; PULSE 99; RESP 12; TEMP 36.4; O2SAT 94
[2024-06-16 07:57] LABS: Glucose, Whole Blood 136 mg/dL (60-115)
[2024-06-16 08:18] LABS: MANUAL DIFF FLAG NO
[2024-06-16 08:30] LABS: Basophils Absolute Auto 0.1 X10*3/uL (0.0-0.2); Basophils Percent Auto 0.5 % (0-2); Eosinophils Absolute Auto 0.1 X10*3/uL (0.0-0.4); Eosinophils Percent Auto 0.6 % (0-4); Hematocrit 41.4 % (42.0-52.0); Hemoglobin 14.1 g/dl (14.0-18.0); Imm Gran Abs Auto 0.03 X10*3/uL (0.00-0.03); Imm Gran Pct Auto 0.3 % (0.0-0.4); Lymphocytes Absolute Auto 1.6 X10*3/uL (1.2-4.9); Lymphocytes Percent Auto 13.9 % (20-40); Mean Corpuscular HGB Conc 34.1 g/dl (31.0-36.0); Mean Platelet Volume 11.3 fL (9.4-12.4); Monocytes Percent Auto 8.6 % (2-11); Neutrophils Absolute Auto 8.6 x10*3/uL (2.0-8.3); Neutrophils Percent Auto 76.1 % (45-73); Platelet Count 175 X10*3/uL (160-400); Red Blood Count 4.55 X10*6/uL (4.60-5.80); Red Cell Distribution Width 13.9 % (11.0-16.0); White Blood Count 11.4 X10*3/uL (4.8-10.8)
[2024-06-16 08:45] LABS: Albumin Level 4.1 g/dL (3.5-5.0); Anion Gap 16 (12-20); Blood Urea Nitrogen 17 mg/dL (9-16); Calcium 9.1 mg/dL (8.4-10.2); Carbon Dioxide 25 mmol/L (22-29); Chloride 104 mmol/L (96-108); Creatinine Clr Calc Pharmacy 110.5; Estimated Glomerular Filt Rate > 60; Glucose Random 124 mg/dL (60-115); Magnesium 2.1 mg/dL (1.6-2.6); Phosphorus 5.5 mg/dL (2.7-4.5); Potassium 4.3 mmol/L (3.3-5.1); Sodium 141 mmol/L (135-145)
[2024-06-16 11:23] LABS: Glucose, Whole Blood 171 mg/dL (60-115)
[2024-06-16 11:28] VITALS: O2SAT 90
[2024-06-16] MEDS: ondansetron HCL 4 MG/2 ML VIAL IVPUSH (11:33)
[2024-06-16 11:34] LABS: ABG Base Excess 0.3 mmol/L; ABG HCO3 26 mmol/L (22-26); ABG pCO2 48 mmHg (32-45); ABG pH 7.34 (7.35-7.45); ABG pO2 104 mmHg (83-108)
--- NOTE | 2024-06-16 11:41 | PM.EVENT ---
Event Note Date of Service: 06/16/24 Event Note: RR called at 1115 for hypoxia and encephalopathy. Sats as low as 84%, BS 171, stable BP no hypotension. ICU attending deep suctioned patient with good effect, CXR neg for consolidation, EKG with NSR, F/C placed for retension. Patient on oxymask with stable o2 sats. resting in bed Time Spent With Patient Time: Total time managing care of this patient today ____ minutes.
[2024-06-16 11:54] LABS: ABG Refer to POC result
[2024-06-16 12:00] VITALS: BP 149/84; PULSE 89; TEMP 37.2; O2SAT 90
[2024-06-16 15:31] VITALS: BP 124/75; PULSE 103; RESP 14; TEMP 36.5; O2SAT 94
--- NOTE | 2024-06-16 15:44 | HO.PM.IMPN ---
Subjective Subjective Date of Service: 06/16/24 Review of Systems Follow up ETOH and withdrawal tx from ICU 06/15/24, s/p Precedex drip Sleepy, rapid response called this morning due to hypoxia encephalopathy, C event note Physical Exam Vital Signs: Vital Signs: Last Vital Signs Temp 97.7 F 06/16/24 15:31 Pulse 103 H 06/16/24 15:31 Resp 14 06/16/24 15:31 BP 124/75 06/16/24 15:31 Pulse Ox 94 06/16/24 15:31 O2 Del Method Oxymask 06/16/24 15:31 O2 Flow Rate 4 06/16/24 15:31 Oxygen Flow Rate 4 06/16/24 12:00 BMI result Body Mass Index 30.8 Appearing in no acute distress lung sounds are clear to auscultation heart regular rate rhythm, clear S1, S2 positive bowel sounds, abdomen is soft, nontender neuro patient is alert x3, no focal deficits Objective Data Active Medications Buprenorphine/Naloxone (Buprenorphine/Naloxone 8/2 Mg Film) 2 film BUCCAL BEDTIME [facility] Last Admin: 06/15/24 21:03 Dose: 2 film Documented By: AUNDREA Buspirone HCl (Buspirone Hcl 5 Mg Tablet) 5 mg PO BID [facility] Last Admin: 06/16/24 10:26 Dose: Not Given Documented By: KAREEM Non-Admin Reason: pt lethargic Cyclobenzaprine HCl (Cyclobenzaprine Hcl 10 Mg Tablet) 10 mg PO TID PRN PRN Reason: Muscle Spasm Last Admin: 06/15/24 04:03 Dose: 10 mg Documented By: CORI Duloxetine HCl (Duloxetine Hcl 30 Mg Capsule.) 30 mg PO DAILY [facility] Last Admin: 06/16/24 10:26 Dose: Not Given Documented By: KAREEM Non-Admin Reason: pt lethargic Duloxetine HCl (Duloxetine Hcl 60 Mg Capsule.) 60 mg PO DAILY [facility] Last Admin: 06/16/24 10:26 Dose: Not Given Documented By: KAREEM Non-Admin Reason: pt lethargic Enoxaparin Sodium (Enoxaparin Sodium 40 Mg/0.4 Ml Syringe) 40 mg SUBCUT Q24H [facility] Last Admin: 06/15/24 20:58 Dose: 40 mg Documented By: AUNDREA Finasteride (Finasteride 5 Mg Tablet) 5 mg PO DAILY [facility] Last Admin: 06/16/24 10:26 Dose: Not Given Documented By: KAREEM Non-Admin Reason: pt lethargic Folic Acid (Folic Acid 1 Mg Tablet) 1 mg PO DAILY [facility] Last Admin: 06/16/24 10:26 Dose: Not Given Documented By: KAREEM Non-Admin Reason: pt lethargic Insulin Human Lispro (Insulin Lispro 100 Unit/Ml 3 Ml Vial) 0 unit SUBCUT QIDACHS [facility]; Protocol Last Admin: 06/16/24 13:01 Dose: Not Given Documented By: KAREEM Non-Admin Reason: pt not taking any PO Magnesium Oxide (Magnesium Oxide 400 Mg Tablet) 400 mg PO DAILY [facility] Last Admin: 06/16/24 10:27 Dose: Not Given Documented By: KAREEM Non-Admin Reason: pt lethargic Melatonin (Melatonin 3 Mg Tablet) 6 mg PO BEDTIME PRN PRN Reason: Insomnia Metoprolol Succinate (Metoprolol Succinate Er 25 Mg Tab.Er.24h) 25 mg PO DAILY [facility]; Protocol Last Admin: 06/16/24 10:27 Dose: Not Given Documented By: KAREEM Non-Admin Reason: pt lethargic Multivitamins/Vitamin C (Multivitamin Tablet) 1 tab PO DAILY [facility] Last Admin: 06/16/24 10:27 Dose: Not Given Documented By: KAREEM Non-Admin Reason: pt lethargic Nicotine (Nicotine 21 Mg Patch.Td24) 21 mg TRANSDERMA DAILY [facility] Last Admin: 06/16/24 11:33 Dose: Not Given Documented By: KAREEM Non-Admin Reason: too diaphoretic Ondansetron HCl (Ondansetron Hcl 4 Mg/2 Ml Vial) 4 mg IVPUSH Q8H PRN PRN Reason: Nausea and Vomiting Last Admin: 06/16/24 11:33 Dose: 4 mg Documented By: KAREEM Pharmacy Consult (Consult Rx Etoh Phenob Im/Po) 1 each MISCELLANE ONCE PRN; Protocol PRN Reason: Consult order Phenobarbital (Phenobarbital 30 Mg Tablet) 30 mg PO BID [facility] Stop: 06/16/24 21:01 Last Admin: 06/16/24 10:46 Dose: Not Given Documented By: KAREEM Non-Admin Reason: pt lethargic Phenobarbital (Phenobarbital 15 Mg Tablet) 15 mg PO DAILY [facility] Stop: 06/18/24 09:01 Phenobarbital (Phenobarbital 30 Mg Tablet) 60 mg PO Q4H PRN PRN Reason: Anxiety Last Admin: 06/15/24 21:58 Dose: 60 mg Documented By: AUNDREA Phenobarbital (Phenobarbital 100 Mg Tablet) 300 mg PO Q4H PRN PRN Reason: Anxiety Last Admin: 06/15/24 21:58 Dose: 300 mg Documented By: AUNDREA Tamsulosin HCl (Tamsulosin Hcl 0.4 Mg Capsule) 0.8 mg PO BEDTIME [facility] Last Admin: 06/15/24 20:57 Dose: 0.8 mg Documented By: AUNDREA Thiamine HCl (Thiamine Hcl 100 Mg Tablet) 100 mg PO DAILY [facility] Last Admin: 06/16/24 10:27 Dose: Not Given Documented By: KAREEM Non-Admin Reason: pt lethargic Labs 06/16/24 06:47 06/16/24 06:47 Labs: Laboratory Results - last 24 hr 06/15/24 06/15/24 06/16/24 15:30 19:22 06:47 MCV 91.0 MCH 31.0 MCHC 34.1 RDW 13.9 Plt Count 175 MPV 11.3 Immature Gran % (Auto) 0.3 Neut % (Auto) 76.1 H Lymph % (Auto) 13.9 L [place] % (Auto) 8.6 Eos % (Auto) 0.6 Baso % (Auto) 0.5 Lymph # (Auto) 1.6 [place] # (Auto) 1.0 Eos # (Auto) 0.1 Baso # (Auto) 0.1 Abs Immat Gran (auto) 0.03 Absolute Neuts (auto) 8.6 H Absolute Nucleated RBC 0.000 Nucleated RBC % (auto) 0.0 O2 Saturation ABG pH at Pt Temp ABG pCO2 at Pt Temp ABG pO2 at Pt Temp ABG HCO3 ABG Base Excess (Actual) Anion Gap 16 Estim Creat Clear Calc 110.5 Estimated GFR > 60 POC Glucose 172 H 117 H Random Glucose 124 H Calcium 9.1 D Phosphorus 5.5 H Magnesium 2.1 Albumin 4.1 04/04/1106/16/24 06/16/24 07:28 11:19 11:25 MCV MCH MCHC RDW Plt Count MPV Immature Gran % (Auto) Neut % (Auto) Lymph % (Auto) [place] % (Auto) Eos % (Auto) Baso % (Auto) Lymph # (Auto) [place] # (Auto) Eos # (Auto) Baso # (Auto) Abs Immat Gran (auto) Absolute Neuts (auto) Absolute Nucleated RBC Nucleated RBC % (auto) O2 Saturation 99.0 ABG pH at Pt Temp 7.34 L ABG pCO2 at Pt Temp 48 H ABG pO2 at Pt Temp 104 ABG HCO3 26 ABG Base Excess (Actual) 0.3 Anion Gap Estim Creat Clear Calc Estimated GFR POC Glucose 136 H 171 H Random Glucose Calcium Phosphorus Magnesium Albumin Assessment and Plan (1) Alcohol withdrawal syndrome: Status: Resolved Plan 63-year-old male with history of alcohol use disorder with history of alcohol withdrawal, alcohol withdrawal seizures and multiple admissions for alcohol withdrawal, opioid use disorder on Suboxone, history of aspiration, anxiety, depression, diabetes who presents to the emergency department acutely intoxicated seeking detox Toxic metabolic encephalopathy due to etoh withdrawal. tx from ICU yesterday, s/p Precedex drip still sleepy, RR called at 1100 for hypoxia and encephalopathy, stabilized after suctioning, normal blood gas, cxr neg for consolidation Monitor mental status closely Alcohol use disorder with alcohol withdrawal History of severe alcohol withdrawal in the past with history of alcohol withdrawal seizures and multiple admissions requiring ICU level care Thiamine, folate, magnesium aspiration, seizure precautions addiction medicine consult Continue phenobarbital DM2 SSI, POCs diabetic diet OUD continue suboxone Mood continue buspirone, duloxetine Neuropathy hold gabapentin d/t encephalopathy BPH finasteride HTN metoprolol Smoker NRT Obesity class I. BMI 30.8 Discussed importance of weight management as this may be contributing to worsening of other comorbidities DVT ppx - lovenox Attending Dr. Rice Full code Quality Stroke Does the patient have a stroke diagnosis?: No VTE Prior VTE?: No VTE Risk Level:: Medical - low VTE Device Contraindication: N/A - Device Ordered VTE Drug Contraindication: N/A - Med Ordered
[2024-06-16 17:08] LABS: Glucose, Whole Blood 129 mg/dL (60-115)
[2024-06-16] MEDS: PHENobarbitaL 30 MG TABLET 60 MG PO ×2 (17:24→21:38)
[2024-06-16 19:19] VITALS: BP 155/88; PULSE 93; RESP 16; TEMP 36.6; O2SAT 96
[2024-06-16] MEDS: Buprenorphine/Naloxone 8/2 mg FILM 2 FILM BUCCAL (19:41)
[2024-06-16] MEDS: PHENobarbitaL 30 MG TABLET PO (19:41)
[2024-06-16] MEDS: Enoxaparin Sodium 40 MG/0.4 ML SYRINGE SUBCUT (19:41)
[2024-06-16] MEDS: Acetaminophen 325 MG TABLET 650 MG PO (19:42)
[2024-06-16] MEDS: busPIRone HCl 5 MG TABLET PO (19:43)
[2024-06-16] MEDS: Tamsulosin HCL 0.4 MG CAPSULE 0.8 MG PO (19:43)
[2024-06-16 20:57] LABS: Glucose, Whole Blood 131 mg/dL (60-115)
[2024-06-16] MEDS: PHENobarbitaL sodium 130 MG/ML VIAL IM (23:08)
[2024-06-17] VITALS (7 sets, daily range): BP systolic 135–171; BP diastolic 78–104; PULSE 80–117; RESP 16–18; TEMP 36.8–37.1; O2SAT 88–98
[2024-06-17] MEDS: PHENobarbitaL sodium 130 MG/ML VIAL IM ×2 (06:19→23:55)
[2024-06-17 07:29] LABS: Glucose, Whole Blood 192 mg/dL (60-115)
[2024-06-17] MEDS: Acetaminophen 325 MG TABLET 650 MG PO ×2 (08:00→13:46)
--- NOTE | 2024-06-17 09:09 | HO.ADDICTCON ---
History of Present Illness Date of Service: 06/17/2022 Chief Complaint: Alcoholic withdrawl Reason for Consult: AUD with DT Sources of Information: chart reviewed HPI Narrative: All information gathered from chart as patient is confused and unable to provide an information Patient is a 63 year old male with severe AUD and numerous medical admissions for severe withdrawal prolonged withdrawal management Patient transferred to / on 06/16 following 2 day admission to ICU He continues to score high on CIWA necessitating PRN IM doses of phenobarbital He is confused, restless and requiring 1:1 support via patient observer to ensure safety as he continues to try and get out of bed and pulls at wires and IVs. CIWA at 0800 20 labs reviewed Review of Systems Review of Systems Yes Unobtainable due to mental status Diagnostics Vital Signs (24Hr): Vital Signs - 24 hr 06/16/24 12:00 06/16/24 15:31 06/16/24 19:19 Temperature 98.9 F 97.7 F 97.8 F Pulse Rate 89 103 H 93 Respiratory Rate 14 16 Blood Pressure 149/84 H 124/75 155/88 H Pulse Oximetry 90 L 94 96 Oxygen Delivery Method Oxymask Oxymask Nasal Cannula Oxygen Flow Rate 4 4 06/17/24 00:00 06/17/24 03:43 06/17/24 04:05 Temperature 98.3 F 98.4 F Pulse Rate 117 H 110 H Respiratory Rate 17 17 Blood Pressure 135/104 H 170/86 H Pulse Oximetry 89 L 88 L 95 Oxygen Delivery Method Nasal Cannula Oxymask Oxymask Oxygen Flow Rate 4 6 5 06/17/24 07:21 Temperature 98.3 F Pulse Rate 100 Respiratory Rate 16 Blood Pressure 138/78 Pulse Oximetry 93 Oxygen Delivery Method Oxymask Oxygen Flow Rate 4 BMI result Body Mass Index 30.8 Labs 06/16/24 06:47 06/17/24 09:53 Labs: Laboratory Results - last 48 hr 06/15/24 06/15/24 06/15/24 11:07 15:30 19:22 WBC RBC Hgb Hct MCV MCH MCHC RDW Plt Count MPV Immature Gran % (Auto) Neut % (Auto) Lymph % (Auto) [place] % (Auto) Eos % (Auto) Baso % (Auto) Lymph # (Auto) [place] # (Auto) Eos # (Auto) Baso # (Auto) Abs Immat Gran (auto) Absolute Neuts (auto) Absolute Nucleated RBC Nucleated RBC % (auto) O2 Saturation ABG pH at Pt Temp ABG pCO2 at Pt Temp ABG pO2 at Pt Temp ABG HCO3 ABG Base Excess (Actual) Sodium Potassium Chloride Carbon Dioxide Anion Gap BUN Creatinine Estim Creat Clear Calc Estimated GFR POC Glucose 115 172 H 117 H Random Glucose Calcium Phosphorus Magnesium Albumin 06/16/24 06/16/24 06/16/24 06:47 07:28 11:19 WBC 11.4 H RBC 4.55 L Hgb 14.1 Hct 41.4 L MCV 91.0 MCH 31.0 MCHC 34.1 RDW 13.9 Plt Count 175 MPV 11.3 Immature Gran % (Auto) 0.3 Neut % (Auto) 76.1 H Lymph % (Auto) 13.9 L [place] % (Auto) 8.6 Eos % (Auto) 0.6 Baso % (Auto) 0.5 Lymph # (Auto) 1.6 [place] # (Auto) 1.0 Eos # (Auto) 0.1 Baso # (Auto) 0.1 Abs Immat Gran (auto) 0.03 Absolute Neuts (auto) 8.6 H Absolute Nucleated RBC 0.000 Nucleated RBC % (auto) 0.0 O2 Saturation ABG pH at Pt Temp ABG pCO2 at Pt Temp ABG pO2 at Pt Temp ABG HCO3 ABG Base Excess (Actual) Sodium 141 Potassium 4.3 Chloride 104 Carbon Dioxide 25 Anion Gap 16 BUN 17 H Creatinine 0.78 Estim Creat Clear Calc 110.5 Estimated GFR > 60 POC Glucose 136 H 171 H Random Glucose 124 H Calcium 9.1 D Phosphorus 5.5 H Magnesium 2.1 Albumin 4.1 06/16/24 06/16/24 06/16/24 11:25 17:03 20:52 WBC RBC Hgb Hct MCV MCH MCHC RDW Plt Count MPV Immature Gran % (Auto) Neut % (Auto) Lymph % (Auto) [place] % (Auto) Eos % (Auto) Baso % (Auto) Lymph # (Auto) [place] # (Auto) Eos # (Auto) Baso # (Auto) Abs Immat Gran (auto) Absolute Neuts (auto) Absolute Nucleated RBC Nucleated RBC % (auto) O2 Saturation 99.0 ABG pH at Pt Temp 7.34 L ABG pCO2 at Pt Temp 48 H ABG pO2 at Pt Temp 104 ABG HCO3 26 ABG Base Excess (Actual) 0.3 Sodium Potassium Chloride Carbon Dioxide Anion Gap BUN Creatinine Estim Creat Clear Calc Estimated GFR POC Glucose 129 H 131 H Random Glucose Calcium Phosphorus Magnesium Albumin 06/17/24 07:23 WBC RBC Hgb Hct MCV MCH MCHC RDW Plt Count MPV Immature Gran % (Auto) Neut % (Auto) Lymph % (Auto) [place] % (Auto) Eos % (Auto) Baso % (Auto) Lymph # (Auto) [place] # (Auto) Eos # (Auto) Baso # (Auto) Abs Immat Gran (auto) Absolute Neuts (auto) Absolute Nucleated RBC Nucleated RBC % (auto) O2 Saturation ABG pH at Pt Temp ABG pCO2 at Pt Temp ABG pO2 at Pt Temp ABG HCO3 ABG Base Excess (Actual) Sodium Potassium Chloride Carbon Dioxide Anion Gap BUN Creatinine Estim Creat Clear Calc Estimated GFR POC Glucose 192 H Random Glucose Calcium Phosphorus Magnesium Albumin Imaging Radiology Impressions: ITS Impressions Chest X-Ray 06/12/24 13:45 IMPRESSION: No acute cardiopulmonary abnormality. Electronically signed by: Byron Larson MD 06/12/2024 02:02 PM EDT RP Chest CT 06/12/24 15:59 IMPRESSION: 1. Exam significantly degraded by motion artifact. Within these confines, no definite pneumonia or active pulmonary disease identified. No effusions. 2. Diffuse fatty infiltration of the liver. Cholecystectomy. 3. Ancillary findings as discussed. Electronically signed by: Adrian Lopez MD 06/12/2024 04:34 PM EDT RP Chest X-Ray 06/16/24 11:37 IMPRESSION: 1. Low lung volumes with bronchovascular crowding in both perihilar regions. Within these confines, no definite active pulmonary disease. Electronically signed by: Adrian Lopez MD 06/16/2024 12:40 PM EDT RP Mental Status Exam Mental Status Exam Patient Behavior: Confused Judgement: Poor Medications Medications Current Medications Acetaminophen (Acetaminophen 325 Mg Tablet) 650 mg PO Q6H PRN PRN Reason: Pain, Mild (Pain Scale 1-3) Last Admin: 06/17/24 08:00 Dose: 650 mg Buprenorphine/Naloxone (Buprenorphine/Naloxone 8/2 Mg Film) 2 film BUCCAL BEDTIME [facility] Last Admin: 06/16/24 19:41 Dose: 2 film Buspirone HCl (Buspirone Hcl 5 Mg Tablet) 5 mg PO BID [facility] Last Admin: 06/16/24 19:43 Dose: 5 mg Cyclobenzaprine HCl (Cyclobenzaprine Hcl 10 Mg Tablet) 10 mg PO TID PRN PRN Reason: Muscle Spasm Last Admin: 06/15/24 04:03 Dose: 10 mg Duloxetine HCl (Duloxetine Hcl 30 Mg Capsule.Dr) 30 mg PO DAILY [facility] Last Admin: 06/16/24 10:26 Dose: Not Given Duloxetine HCl (Duloxetine Hcl 60 Mg Capsule.Dr) 60 mg PO DAILY [facility] Last Admin: 06/16/24 10:26 Dose: Not Given Enoxaparin Sodium (Enoxaparin Sodium 40 Mg/0.4 Ml Syringe) 40 mg SUBCUT Q24H [facility] Last Admin: 06/16/24 19:41 Dose: 40 mg Finasteride (Finasteride 5 Mg Tablet) 5 mg PO DAILY [facility] Last Admin: 06/16/24 10:26 Dose: Not Given Folic Acid (Folic Acid 1 Mg Tablet) 1 mg PO DAILY [facility] Last Admin: 06/16/24 10:26 Dose: Not Given Insulin Human Lispro (Insulin Lispro 100 Unit/Ml 3 Ml Vial) 0 unit SUBCUT QIDACHS [facility]; Protocol Last Admin: 06/16/24 21:06 Dose: Not Given Magnesium Oxide (Magnesium Oxide 400 Mg Tablet) 400 mg PO DAILY [facility] Last Admin: 06/16/24 10:27 Dose: Not Given Melatonin (Melatonin 3 Mg Tablet) 6 mg PO BEDTIME PRN PRN Reason: Insomnia Metoprolol Succinate (Metoprolol Succinate Er 25 Mg Tab.Er.24h) 25 mg PO DAILY [facility]; Protocol Last Admin: 06/16/24 10:27 Dose: Not Given Multivitamins/Vitamin C (Multivitamin Tablet) 1 tab PO DAILY [facility] Last Admin: 06/16/24 10:27 Dose: Not Given Nicotine (Nicotine 21 Mg Patch.Td24) 21 mg TRANSDERMA DAILY [facility] Last Admin: 06/16/24 11:33 Dose: Not Given Ondansetron HCl (Ondansetron Hcl 4 Mg/2 Ml Vial) 4 mg IVPUSH Q8H PRN PRN Reason: Nausea and Vomiting Last Admin: 06/16/24 11:33 Dose: 4 mg Pharmacy Consult (Consult Rx Etoh Phenob Im/Po) 1 each MISCELLANE ONCE PRN; Protocol PRN Reason: Consult order Phenobarbital (Phenobarbital 15 Mg Tablet) 15 mg PO DAILY [facility] Stop: 06/18/24 09:01 Phenobarbital (Phenobarbital 30 Mg Tablet) 60 mg PO Q4H PRN PRN Reason: Anxiety Last Admin: 06/16/24 21:38 Dose: 60 mg Phenobarbital (Phenobarbital 100 Mg Tablet) 300 mg PO Q4H PRN PRN Reason: Anxiety Last Admin: 06/15/24 21:58 Dose: 300 mg Tamsulosin HCl (Tamsulosin Hcl 0.4 Mg Capsule) 0.8 mg PO BEDTIME [facility] Last Admin: 06/16/24 19:43 Dose: 0.8 mg Thiamine HCl (Thiamine Hcl 100 Mg Tablet) 100 mg PO DAILY [facility] Last Admin: 06/16/24 10:27 Dose: Not Given Allergies Allergies Allergy/AdvReac Type Severity Reaction Status Date / Time No Known Allergies Allergy Verified 06/12/24 13:15 Assessment & Plan Assessment & Plan (1) Delirium tremens: Status: Acute Code(s): F10.931 - Alcohol use, unspecified with withdrawal delirium Assessment and Plan: High dose IV or IM thiamine --PO absorption limited and patient at high risk for WE 500mg BID IV x2 days, then 250mg IV QD for 3 days PRN IM doses of pheno to address elevated CIWA scores Total time managing care of this patient today __25__ minutes. [facility] Past Medical History Medical History Diabetes Hypertension Alcohol use disorder, severe, dependence Alcohol abuse Hyperlipidemia Depression with anxiety Social History Social History Household Members: Unknown / Unable to assess Household Members Other:: Self with a dog{ Parker} Housing: House Do you presently have visiting nurse or other home services: No Alcohol intake: current Alcohol intake frequency: 3 or more drinks per day Alcohol type: beer and hard liquor Comment: Sitter Patient Tobacco Use Status: Former Tobacco user Tobacco use type: Cigarette e-Cigarette/Vaping Use: Currently Using Second Hand Smoke Exposure: No Substance Use Type: Marijuana Advance Directives Date on File: 07/30/23 service: Yes
[2024-06-17 10:19] LABS: Anion Gap 13 (12-20); Blood Urea Nitrogen 12 mg/dL (9-16); Carbon Dioxide 30 mmol/L (22-29); Chloride 103 mmol/L (96-108); Creatinine Clr Calc Pharmacy 132.6; Estimated Glomerular Filt Rate > 60; Glucose Random 168 mg/dL (60-115); Potassium 4.5 mmol/L (3.3-5.1); Sodium 141 mmol/L (135-145)
[2024-06-17] MEDS: Nicotine 21 MG PATCH.TD24 TRANSDERMA (10:46)
[2024-06-17] MEDS: Thiamine HCL 500 MG in 0.9 % Sodium Chloride 100 ML 210 MG IV ×2 (10:46→22:52)
--- NOTE | 2024-06-17 10:53 | PC.NURSE ---
restless, and drowsy , arousable to voice , spitting out AM medications, MD aware
--- NOTE | 2024-06-17 11:27 | HO.PM.IMPN ---
Subjective Subjective Date of Service: 06/17/24 Review of Systems Follow up ETOH and withdrawal tx from ICU 06/15/24, s/p Precedex drip Sleepy, rapid response called this morning due to hypoxia encephalopathy, C event note Physical Exam Vital Signs: Vital Signs: Last Vital Signs Temp 98.3 F 06/17/24 07:21 Pulse 100 06/17/24 07:21 Resp 16 06/17/24 07:21 BP 138/78 06/17/24 07:21 Pulse Ox 93 06/17/24 07:21 O2 Del Method Oxymask 06/17/24 07:21 O2 Flow Rate 4 06/17/24 07:21 Oxygen Flow Rate 4 06/16/24 12:00 BMI result Body Mass Index 30.8 Appearing in no acute distress lung sounds are clear to auscultation heart regular rate rhythm, clear S1, S2 positive bowel sounds, abdomen is soft, nontender neuro patient is alert x3, no focal deficits Objective Data Active Medications Acetaminophen (Acetaminophen 325 Mg Tablet) 650 mg PO Q6H PRN PRN Reason: Pain, Mild (Pain Scale 1-3) Last Admin: 06/17/24 08:00 Dose: 650 mg Documented By: KRISTIAN Buprenorphine/Naloxone (Buprenorphine/Naloxone 8/2 Mg Film) 2 film BUCCAL BEDTIME [facility] Last Admin: 06/16/24 19:41 Dose: 2 film Documented By: LAZARUS Buspirone HCl (Buspirone Hcl 5 Mg Tablet) 5 mg PO BID [facility] Last Admin: 06/17/24 09:48 Dose: Not Given Documented By: KRISTIAN Non-Admin Reason: Patient Refused Cyclobenzaprine HCl (Cyclobenzaprine Hcl 10 Mg Tablet) 10 mg PO TID PRN PRN Reason: Muscle Spasm Last Admin: 06/15/24 04:03 Dose: 10 mg Documented By: CORI Duloxetine HCl (Duloxetine Hcl 30 Mg Capsule.) 30 mg PO DAILY [facility] Last Admin: 06/17/24 09:46 Dose: Not Given Documented By: KRISTIAN Non-Admin Reason: Patient Refused Duloxetine HCl (Duloxetine Hcl 60 Mg Capsule.) 60 mg PO DAILY [facility] Last Admin: 06/17/24 09:46 Dose: Not Given Documented By: KRISTIAN Non-Admin Reason: Patient Refused Enoxaparin Sodium (Enoxaparin Sodium 40 Mg/0.4 Ml Syringe) 40 mg SUBCUT Q24H [facility] Last Admin: 06/16/24 19:41 Dose: 40 mg Documented By: LAZARUS Finasteride (Finasteride 5 Mg Tablet) 5 mg PO DAILY [facility] Last Admin: 06/17/24 09:45 Dose: Not Given Documented By: KRISTIAN Non-Admin Reason: Patient Refused Folic Acid (Folic Acid 1 Mg Tablet) 1 mg PO DAILY [facility] Last Admin: 06/17/24 09:45 Dose: Not Given Documented By: KRISTIAN Non-Admin Reason: Patient Refused Thiamine HCl 500 mg/ Sodium (Chloride) 105 mls @ 210 mls/hr IV Q12H [facility] Stop: 06/19/24 09:59 Last Admin: 06/17/24 10:46 Dose: 210 mls/hr Documented By: KRISTIAN Insulin Human Lispro (Insulin Lispro 100 Unit/Ml 3 Ml Vial) 0 unit SUBCUT QIDACHS [facility]; Protocol Last Admin: 06/17/24 09:44 Dose: Not Given Documented By: KRISTIAN Non-Admin Reason: Patient Refused Magnesium Oxide (Magnesium Oxide 400 Mg Tablet) 400 mg PO DAILY [facility] Last Admin: 06/17/24 09:47 Dose: Not Given Documented By: KRISTIAN Non-Admin Reason: Patient Refused Melatonin (Melatonin 3 Mg Tablet) 6 mg PO BEDTIME PRN PRN Reason: Insomnia Metoprolol Succinate (Metoprolol Succinate Er 25 Mg Tab.Er.24h) 25 mg PO DAILY [facility]; Protocol Last Admin: 06/17/24 09:47 Dose: Not Given Documented By: KRISTIAN Non-Admin Reason: Patient Refused Multivitamins/Vitamin C (Multivitamin Tablet) 1 tab PO DAILY [facility] Last Admin: 06/17/24 09:48 Dose: Not Given Documented By: KRISTIAN Non-Admin Reason: Patient Refused Nicotine (Nicotine 21 Mg Patch.Td24) 21 mg TRANSDERMA DAILY [facility] Last Admin: 06/17/24 10:46 Dose: 21 mg Documented By: KRISTIAN Ondansetron HCl (Ondansetron Hcl 4 Mg/2 Ml Vial) 4 mg IVPUSH Q8H PRN PRN Reason: Nausea and Vomiting Last Admin: 06/16/24 11:33 Dose: 4 mg Documented By: KAREEM Pharmacy Consult (Consult Rx Etoh Phenob Im/Po) 1 each MISCELLANE ONCE PRN; Protocol PRN Reason: Consult order Phenobarbital (Phenobarbital 15 Mg Tablet) 15 mg PO DAILY [facility] Stop: 06/18/24 09:01 Last Admin: 06/17/24 10:46 Dose: Not Given Documented By: KRISTIAN Non-Admin Reason: Patient Refused Phenobarbital (Phenobarbital 30 Mg Tablet) 60 mg PO Q4H PRN PRN Reason: Anxiety Last Admin: 06/16/24 21:38 Dose: 60 mg Documented By: LEENA Phenobarbital (Phenobarbital 100 Mg Tablet) 300 mg PO Q4H PRN PRN Reason: Anxiety Last Admin: 06/15/24 21:58 Dose: 300 mg Documented By: AUNDREA Tamsulosin HCl (Tamsulosin Hcl 0.4 Mg Capsule) 0.8 mg PO BEDTIME [facility] Last Admin: 06/16/24 19:43 Dose: 0.8 mg Documented By: LAZARUS Labs 06/16/24 06:47 06/17/24 09:53 Labs: Laboratory Results - last 24 hr 06/16/24 06/16/24 06/16/24 11:25 17:03 20:52 O2 Saturation 99.0 ABG pH at Pt Temp 7.34 L ABG pCO2 at Pt Temp 48 H ABG pO2 at Pt Temp 104 ABG HCO3 26 ABG Base Excess (Actual) 0.3 Anion Gap Estim Creat Clear Calc Estimated GFR POC Glucose 129 H 131 H Random Glucose Calcium 06/17/24 06/17/24 07:23 09:53 O2 Saturation ABG pH at Pt Temp ABG pCO2 at Pt Temp ABG pO2 at Pt Temp ABG HCO3 ABG Base Excess (Actual) Anion Gap 13 Estim Creat Clear Calc 132.6 Estimated GFR > 60 POC Glucose 192 H Random Glucose 168 H Calcium 9.0 Assessment and Plan (1) Alcohol withdrawal syndrome: Status: Resolved Plan 63-year-old male with history of alcohol use disorder with history of alcohol withdrawal, alcohol withdrawal seizures and multiple admissions for alcohol withdrawal, opioid use disorder on Suboxone, history of aspiration, anxiety, depression, diabetes who presents to the emergency department acutely intoxicated seeking detox Toxic metabolic encephalopathy due to etoh withdrawal. slowly improving tx from ICU yesterday, s/p Precedex drip 06/16/24 RR called at 1100 for hypoxia and encephalopathy, stabilized after suctioning, normal blood gas, cxr neg for consolidation Monitor mental status closely Alcohol use disorder with alcohol withdrawal History of severe alcohol withdrawal in the past with history of alcohol withdrawal seizures and multiple admissions requiring ICU level care Thiamine, folate, magnesium aspiration, seizure precautions addiction medicine consult Continue phenobarbital DM2 SSI, POCs diabetic diet OUD continue suboxone Mood continue buspirone, duloxetine Neuropathy hold gabapentin d/t encephalopathy BPH finasteride HTN metoprolol Smoker NRT Obesity class I. BMI 30.8 Discussed importance of weight management as this may be contributing to worsening of other comorbidities DVT ppx - lovenox Attending Dr. Rice Full code Quality Stroke Does the patient have a stroke diagnosis?: No VTE Prior VTE?: No VTE Risk Level:: Medical - low VTE Device Contraindication: N/A - Device Ordered VTE Drug Contraindication: N/A - Med Ordered
[2024-06-17 11:35] LABS: Glucose, Whole Blood 133 mg/dL (60-115)
[2024-06-17 13:25] LABS: VBG Base Excess 11.8 mmol/L; VBG HCO3 39 mmol/L (22-26); VBG pCO2 65 mmHg; VBG pH 7.39 (7.32-7.43); VBG pO2 55 mmHg
[2024-06-17 13:25] LABS: Venous Blood Gas Refer to POC result
[2024-06-17] MEDS: PHENobarbitaL 30 MG TABLET 60 MG PO (13:47)
[2024-06-17] MEDS: Cyclobenzaprine HCl 10 MG TABLET PO (13:47)
[2024-06-17] MEDS: LORazepam 2 MG/ML VIAL 1 MG IVPUSH ×2 (14:36→18:32)
--- NOTE | 2024-06-17 14:38 | PC.NURSE ---
restless, not following directions , getting up unsteady , leaning forward in the bed and is risk for fall . PEDRO PABLO Pickens at the bedside for evaluation , Ativan ordered and administered
--- NOTE | 2024-06-17 15:04 | MHC.CM.PN ---
Per rounds, pt. is not ready to DC, he still requires acute care for alcohol withdrawal. CM to follow for DC needs.
[2024-06-17 16:38] LABS: Glucose, Whole Blood 137 mg/dL (60-115)
[2024-06-17] MEDS: ondansetron HCL 4 MG/2 ML VIAL IVPUSH (18:21)
[2024-06-17] MEDS: Enoxaparin Sodium 40 MG/0.4 ML SYRINGE SUBCUT (18:22)
--- NOTE | 2024-06-17 18:34 | PC.NURSE ---
anxious, restless, uncooperative, not following directions from the nursing staff, sitting at the edge of the bed ,unsteady balance ,medicated with lorazepam 1 mg IV
[2024-06-17] MEDS: diazePAM 10 MG/2 ML CARTRIDGE IVPUSH (20:19)
[2024-06-17 20:52] LABS: Glucose, Whole Blood 135 mg/dL (60-115)
--- NOTE | 2024-06-17 22:12 | PC.NURSE ---
Addendum entered by Leigh Bradley RN 06/17/24 22:19: Pt increasingly agitated during assessment, difficult to redirect, CIWA 27. Provider Saeed notified, IVP valium, scheduled IM phenobarbital, and PRN IM phenobarbital ordered. Valium administered with good effect, scheduled IM phenobarbital held at this time. Original Note: Pt increasingly agitated during assessment, difficult to redirect, CIWA 27. Provider Saeed notified, IVP valium, scheduled IM phenobarbital, and PRN IM phenobarbital ordered. Valium administered with good effect, scheduled IM phenobarbital held.
[2024-06-18] VITALS (19 sets, daily range): BP systolic 108–176; BP diastolic 61–114; PULSE 85–120; RESP 10–20; TEMP 36.4–36.9; O2SAT 90–97; BMI 32.4
[2024-06-18] MEDS: diazePAM 10 MG/2 ML CARTRIDGE IVPUSH (00:23)
[2024-06-18] MEDS: PHENobarbitaL sodium 130 MG/ML VIAL IM ×3 (03:56→12:03)
[2024-06-18] MEDS: LORazepam 2 MG/ML VIAL 1 MG IVPUSH ×2 (04:35→09:20)
[2024-06-18 07:49] LABS: Glucose, Whole Blood 117 mg/dL (60-115)
[2024-06-18] MEDS: Metoprolol Succinate ER 25 MG TAB.ER.24H PO (07:53)
[2024-06-18] MEDS: Acetaminophen 325 MG TABLET 650 MG PO (07:54)
--- NOTE | 2024-06-18 08:12 | PC.NURSE ---
restless, agitated , uncooperative , not following verbal cues , pushing nursing staff , requires frequent redirections. Trying to get out from the bed , unsteady balance when sitting . Medicated with phenobarbital for CIWA 24
--- NOTE | 2024-06-18 09:31 | HO.ADDICT_ITS ---
History of Present Illness Chief Complaint: Alcoholic withdrawl Diagnostics Vital Signs (24Hr): Vital Signs - 24 hr 06/17/24 11:58 06/17/24 15:15 06/17/24 19:59 Temperature 98.3 F 98.4 F 98.7 F Pulse Rate 80 100 95 Respiratory Rate 18 17 16 Blood Pressure 138/94 H 146/90 H 171/87 H Pulse Oximetry 96 95 98 Oxygen Delivery Method Oxymask Oxymask Oxymask Oxygen Flow Rate 4 4 5 06/18/24 00:00 06/18/24 03:32 06/18/24 07:47 Temperature 98.5 F 98.3 F 98.3 F Pulse Rate 120 H 118 H 113 H Respiratory Rate 18 17 20 Blood Pressure 167/97 H 162/92 H 161/99 H Pulse Oximetry 91 L 97 Oxygen Delivery Method Oxymask Oxymask Room Air Oxygen Flow Rate 5 5 BMI result Body Mass Index 32.4 Labs 06/16/24 06:47 06/17/24 09:53 Labs: Laboratory Results - last 48 hr 06/16/24 06/16/24 06/16/24 11:19 11:25 17:03 O2 Saturation 99.0 ABG pH at Pt Temp 7.34 L ABG pCO2 at Pt Temp 48 H ABG pO2 at Pt Temp 104 ABG HCO3 26 ABG Base Excess (Actual) 0.3 VBG pH VBG pCO2 VBG pO2 VBG HCO3 VBG O2 Saturation VBG Base Excess Sodium Potassium Chloride Carbon Dioxide Anion Gap BUN Creatinine Estim Creat Clear Calc Estimated GFR POC Glucose 171 H 129 H Random Glucose Calcium 06/16/24 06/17/24 06/17/24 20:52 07:23 09:53 O2 Saturation ABG pH at Pt Temp ABG pCO2 at Pt Temp ABG pO2 at Pt Temp ABG HCO3 ABG Base Excess (Actual) VBG pH VBG pCO2 VBG pO2 VBG HCO3 VBG O2 Saturation VBG Base Excess Sodium 141 Potassium 4.5 Chloride 103 Carbon Dioxide 30 H Anion Gap 13 BUN 12 Creatinine 0.65 Estim Creat Clear Calc 132.6 Estimated GFR > 60 POC Glucose 131 H 192 H Random Glucose 168 H Calcium 9.0 06/17/24 06/17/24 06/17/24 11:32 13:21 16:35 O2 Saturation ABG pH at Pt Temp ABG pCO2 at Pt Temp ABG pO2 at Pt Temp ABG HCO3 ABG Base Excess (Actual) VBG pH 7.39 VBG pCO2 65 VBG pO2 55 VBG HCO3 39 H VBG O2 Saturation 89.0 VBG Base Excess 11.8 Sodium Potassium Chloride Carbon Dioxide Anion Gap BUN Creatinine Estim Creat Clear Calc Estimated GFR POC Glucose 133 H 137 H Random Glucose Calcium 06/17/24 06/18/24 20:47 07:34 O2 Saturation ABG pH at Pt Temp ABG pCO2 at Pt Temp ABG pO2 at Pt Temp ABG HCO3 ABG Base Excess (Actual) VBG pH VBG pCO2 VBG pO2 VBG HCO3 VBG O2 Saturation VBG Base Excess Sodium Potassium Chloride Carbon Dioxide Anion Gap BUN Creatinine Estim Creat Clear Calc Estimated GFR POC Glucose 135 H 117 H Random Glucose Calcium Imaging Radiology Impressions: ITS Impressions Chest X-Ray 06/12/24 13:45 IMPRESSION: No acute cardiopulmonary abnormality. Electronically signed by: Byron Larson MD 06/12/2024 02:02 PM EDT RP Chest CT 06/12/24 15:59 IMPRESSION: 1. Exam significantly degraded by motion artifact. Within these confines, no definite pneumonia or active pulmonary disease identified. No effusions. 2. Diffuse fatty infiltration of the liver. Cholecystectomy. 3. Ancillary findings as discussed. Electronically signed by: Adrian Lopez MD 06/12/2024 04:34 PM EDT RP Chest X-Ray 06/16/24 11:37 IMPRESSION: 1. Low lung volumes with bronchovascular crowding in both perihilar regions. Within these confines, no definite active pulmonary disease. Electronically signed by: Adrian Lopez MD 06/16/2024 12:40 PM EDT RP Medications Medications Current Medications Acetaminophen (Acetaminophen 325 Mg Tablet) 650 mg PO Q6H PRN PRN Reason: Pain, Mild (Pain Scale 1-3) Last Admin: 06/18/24 07:54 Dose: 650 mg Buprenorphine/Naloxone (Buprenorphine/Naloxone 8/2 Mg Film) 2 film BUCCAL BEDTIME [facility] Last Admin: 06/17/24 22:11 Dose: Not Given Buspirone HCl (Buspirone Hcl 5 Mg Tablet) 5 mg PO BID [facility] Last Admin: 06/17/24 22:11 Dose: Not Given Cyclobenzaprine HCl (Cyclobenzaprine Hcl 10 Mg Tablet) 10 mg PO TID PRN PRN Reason: Muscle Spasm Last Admin: 06/17/24 13:47 Dose: 10 mg Duloxetine HCl (Duloxetine Hcl 30 Mg Capsule.Dr) 30 mg PO DAILY [facility] Last Admin: 06/17/24 09:46 Dose: Not Given Duloxetine HCl (Duloxetine Hcl 60 Mg Capsule.Dr) 60 mg PO DAILY [facility] Last Admin: 06/17/24 09:46 Dose: Not Given Enoxaparin Sodium (Enoxaparin Sodium 40 Mg/0.4 Ml Syringe) 40 mg SUBCUT Q24H [facility] Last Admin: 06/17/24 18:22 Dose: 40 mg Finasteride (Finasteride 5 Mg Tablet) 5 mg PO DAILY [facility] Last Admin: 06/17/24 09:45 Dose: Not Given Folic Acid (Folic Acid 1 Mg Tablet) 1 mg PO DAILY [facility] Last Admin: 06/17/24 09:45 Dose: Not Given Thiamine HCl 500 mg/ Sodium (Chloride) 105 mls @ 210 mls/hr IV Q12H [facility] Stop: 06/19/24 09:59 Last Infusion: 06/17/24 23:30 Dose: Infused Insulin Human Lispro (Insulin Lispro 100 Unit/Ml 3 Ml Vial) 0 unit SUBCUT QIDACHS [facility]; Protocol Last Admin: 06/18/24 09:02 Dose: Not Given Lorazepam (Lorazepam 2 Mg/Ml Vial) 1 mg IVPUSH Q4H PRN PRN Reason: anxiety/restlessness Last Admin: 06/18/24 09:20 Dose: 1 mg Magnesium Oxide (Magnesium Oxide 400 Mg Tablet) 400 mg PO DAILY [facility] Last Admin: 06/17/24 09:47 Dose: Not Given Melatonin (Melatonin 3 Mg Tablet) 6 mg PO BEDTIME PRN PRN Reason: Insomnia Metoprolol Succinate (Metoprolol Succinate Er 25 Mg Tab.Er.24h) 25 mg PO DAILY [facility]; Protocol Last Admin: 06/18/24 07:53 Dose: 25 mg Multivitamins/Vitamin C (Multivitamin Tablet) 1 tab PO DAILY [facility] Last Admin: 06/17/24 09:48 Dose: Not Given Nicotine (Nicotine 21 Mg Patch.Td24) 21 mg TRANSDERMA DAILY [facility] Last Admin: 06/17/24 10:46 Dose: 21 mg Ondansetron HCl (Ondansetron Hcl 4 Mg/2 Ml Vial) 4 mg IVPUSH Q8H PRN PRN Reason: Nausea and Vomiting Last Admin: 06/17/24 18:21 Dose: 4 mg Pharmacy Consult (Consult Rx Etoh Phenob Im/Po) 1 each MISCELLANE ONCE PRN; Protocol PRN Reason: Consult order Phenobarbital Sodium (Phenobarbital Sodium 130 Mg/Ml Vial) 130 mg IM Q4H PRN PRN Reason: Alcohol Withdrawal Last Admin: 06/18/24 07:55 Dose: 130 mg Tamsulosin HCl (Tamsulosin Hcl 0.4 Mg Capsule) 0.8 mg PO BEDTIME [facility] Last Admin: 06/17/24 22:12 Dose: Not Given Allergies Allergies Allergy/AdvReac Type Severity Reaction Status Date / Time No Known Allergies Allergy Verified 06/12/24 13:15 Assessment & Plan Assessment & Plan (1) Delirium tremens: Status: Acute Code(s): F10.931 - Alcohol use, unspecified with withdrawal delirium Assessment and Plan: * Refractory DTs * diazepam 10mg IV q2 HRS until CIWA <10 (prefer diazepam as it is longer acting) * would benefit from ICU transfer for closer monitoring Total time managing care of this patient today ____ minutes. PMFSH Past Medical History Medical History Diabetes Hypertension Alcohol use disorder, severe, dependence Alcohol abuse Hyperlipidemia Depression with anxiety Social History Social History Household Members: Unknown / Unable to assess Household Members Other:: Self with a dog{ Parker} Housing: House Do you presently have visiting nurse or other home services: No Alcohol intake: current Alcohol intake frequency: 3 or more drinks per day Alcohol type: beer and hard liquor Comment: Sitter Patient Tobacco Use Status: Former Tobacco user Tobacco use type: Cigarette e-Cigarette/Vaping Use: Currently Using Second Hand Smoke Exposure: No Substance Use Type: Marijuana Advance Directives Date on File: 07/30/23 service: Yes
[2024-06-18] MEDS: Nicotine 21 MG PATCH.TD24 TRANSDERMA (10:38)
[2024-06-18] MEDS: Thiamine HCL 500 MG in 0.9 % Sodium Chloride 100 ML 210 MG IV ×2 (10:40→22:44)
--- NOTE | 2024-06-18 10:49 | HO.ADDICTPRO ---
Subjective Subjective Date of Service: 06/18/24 Reason For Visit: Alcoholic withdrawl Interim History: Patient continues to show severe sx of alcohol withdrawal/DTs Requiring 1:1 support for safety Requiring multiple PRN IM pheno and lorazepam overnight and this morning Review of Systems Review of Systems Yes Unobtainable due to mental status Mental Status Exam Mental Status Exam Level of Consciousness: Disoriented and Restless Patient Behavior: Confused, Uncooperative and Impulsive Judgement: Poor Diagnostics Vital Signs (24Hr): Vital Signs - 24 hr 06/17/24 11:58 06/17/24 15:15 06/17/24 19:59 Temperature 98.3 F 98.4 F 98.7 F Pulse Rate 80 100 95 Respiratory Rate 18 17 16 Blood Pressure 138/94 H 146/90 H 171/87 H Pulse Oximetry 96 95 98 Oxygen Delivery Method Oxymask Oxymask Oxymask Oxygen Flow Rate 4 4 5 06/18/24 00:00 06/18/24 03:32 06/18/24 07:47 Temperature 98.5 F 98.3 F 98.3 F Pulse Rate 120 H 118 H 113 H Respiratory Rate 18 17 20 Blood Pressure 167/97 H 162/92 H 161/99 H Pulse Oximetry 91 L 97 Oxygen Delivery Method Oxymask Oxymask Oxymask Oxygen Flow Rate 5 5 5 BMI result Body Mass Index 32.4 Labs 06/16/24 06:47 06/17/24 09:53 Labs: Laboratory Results - last 48 hr 06/16/24 06/16/24 06/16/24 11:19 11:25 17:03 O2 Saturation 99.0 ABG pH at Pt Temp 7.34 L ABG pCO2 at Pt Temp 48 H ABG pO2 at Pt Temp 104 ABG HCO3 26 ABG Base Excess (Actual) 0.3 VBG pH VBG pCO2 VBG pO2 VBG HCO3 VBG O2 Saturation VBG Base Excess Sodium Potassium Chloride Carbon Dioxide Anion Gap BUN Creatinine Estim Creat Clear Calc Estimated GFR POC Glucose 171 H 129 H Random Glucose Calcium 06/16/24 06/17/24 06/17/24 20:52 07:23 09:53 O2 Saturation ABG pH at Pt Temp ABG pCO2 at Pt Temp ABG pO2 at Pt Temp ABG HCO3 ABG Base Excess (Actual) VBG pH VBG pCO2 VBG pO2 VBG HCO3 VBG O2 Saturation VBG Base Excess Sodium 141 Potassium 4.5 Chloride 103 Carbon Dioxide 30 H Anion Gap 13 BUN 12 Creatinine 0.65 Estim Creat Clear Calc 132.6 Estimated GFR > 60 POC Glucose 131 H 192 H Random Glucose 168 H Calcium 9.0 06/17/24 06/17/24 06/17/24 11:32 13:21 16:35 O2 Saturation ABG pH at Pt Temp ABG pCO2 at Pt Temp ABG pO2 at Pt Temp ABG HCO3 ABG Base Excess (Actual) VBG pH 7.39 VBG pCO2 65 VBG pO2 55 VBG HCO3 39 H VBG O2 Saturation 89.0 VBG Base Excess 11.8 Sodium Potassium Chloride Carbon Dioxide Anion Gap BUN Creatinine Estim Creat Clear Calc Estimated GFR POC Glucose 133 H 137 H Random Glucose Calcium 06/17/24 06/18/24 20:47 07:34 O2 Saturation ABG pH at Pt Temp ABG pCO2 at Pt Temp ABG pO2 at Pt Temp ABG HCO3 ABG Base Excess (Actual) VBG pH VBG pCO2 VBG pO2 VBG HCO3 VBG O2 Saturation VBG Base Excess Sodium Potassium Chloride Carbon Dioxide Anion Gap BUN Creatinine Estim Creat Clear Calc Estimated GFR POC Glucose 135 H 117 H Random Glucose Calcium Imaging Radiology Impressions: ITS Impressions Chest X-Ray 06/12/24 13:45 IMPRESSION: No acute cardiopulmonary abnormality. Electronically signed by: Byron Larson MD 06/12/2024 02:02 PM EDT RP Chest CT 06/12/24 15:59 IMPRESSION: 1. Exam significantly degraded by motion artifact. Within these confines, no definite pneumonia or active pulmonary disease identified. No effusions. 2. Diffuse fatty infiltration of the liver. Cholecystectomy. 3. Ancillary findings as discussed. Electronically signed by: Adrian Lopez MD 06/12/2024 04:34 PM EDT RP Chest X-Ray 06/16/24 11:37 IMPRESSION: 1. Low lung volumes with bronchovascular crowding in both perihilar regions. Within these confines, no definite active pulmonary disease. Electronically signed by: Adrian Lopez MD 06/16/2024 12:40 PM EDT RP Medications Medications Current Medications Acetaminophen (Acetaminophen 325 Mg Tablet) 650 mg PO Q6H PRN PRN Reason: Pain, Mild (Pain Scale 1-3) Last Admin: 06/18/24 07:54 Dose: 650 mg Buprenorphine/Naloxone (Buprenorphine/Naloxone 8/2 Mg Film) 2 film BUCCAL BEDTIME [facility] Last Admin: 06/17/24 22:11 Dose: Not Given Buspirone HCl (Buspirone Hcl 5 Mg Tablet) 5 mg PO BID [facility] Last Admin: 06/18/24 10:48 Dose: Not Given Cyclobenzaprine HCl (Cyclobenzaprine Hcl 10 Mg Tablet) 10 mg PO TID PRN PRN Reason: Muscle Spasm Last Admin: 06/17/24 13:47 Dose: 10 mg Duloxetine HCl (Duloxetine Hcl 30 Mg Capsule.Dr) 30 mg PO DAILY [facility] Last Admin: 06/18/24 10:47 Dose: Not Given Duloxetine HCl (Duloxetine Hcl 60 Mg Capsule.Dr) 60 mg PO DAILY [facility] Last Admin: 06/18/24 10:47 Dose: Not Given Enoxaparin Sodium (Enoxaparin Sodium 40 Mg/0.4 Ml Syringe) 40 mg SUBCUT Q24H [facility] Last Admin: 06/17/24 18:22 Dose: 40 mg Finasteride (Finasteride 5 Mg Tablet) 5 mg PO DAILY [facility] Last Admin: 06/18/24 10:47 Dose: Not Given Folic Acid (Folic Acid 1 Mg Tablet) 1 mg PO DAILY [facility] Last Admin: 06/18/24 10:47 Dose: Not Given Thiamine HCl 500 mg/ Sodium (Chloride) 105 mls @ 210 mls/hr IV Q12H [facility] Stop: 06/19/24 09:59 Last Admin: 06/18/24 10:40 Dose: 210 mls/hr Insulin Human Lispro (Insulin Lispro 100 Unit/Ml 3 Ml Vial) 0 unit SUBCUT QIDACHS [facility]; Protocol Last Admin: 06/18/24 09:02 Dose: Not Given Lorazepam (Lorazepam 2 Mg/Ml Vial) 1 mg IVPUSH Q4H PRN PRN Reason: anxiety/restlessness Last Admin: 06/18/24 09:20 Dose: 1 mg Magnesium Oxide (Magnesium Oxide 400 Mg Tablet) 400 mg PO DAILY [facility] Last Admin: 06/18/24 10:47 Dose: Not Given Melatonin (Melatonin 3 Mg Tablet) 6 mg PO BEDTIME PRN PRN Reason: Insomnia Metoprolol Succinate (Metoprolol Succinate Er 25 Mg Tab.Er.24h) 25 mg PO DAILY [facility]; Protocol Last Admin: 06/18/24 07:53 Dose: 25 mg Multivitamins/Vitamin C (Multivitamin Tablet) 1 tab PO DAILY [facility] Last Admin: 06/18/24 10:47 Dose: Not Given Nicotine (Nicotine 21 Mg Patch.Td24) 21 mg TRANSDERMA DAILY [facility] Last Admin: 06/18/24 10:38 Dose: 21 mg Ondansetron HCl (Ondansetron Hcl 4 Mg/2 Ml Vial) 4 mg IVPUSH Q8H PRN PRN Reason: Nausea and Vomiting Last Admin: 06/17/24 18:21 Dose: 4 mg Pharmacy Consult (Consult Rx Etoh Phenob Im/Po) 1 each MISCELLANE ONCE PRN; Protocol PRN Reason: Consult order Phenobarbital Sodium (Phenobarbital Sodium 130 Mg/Ml Vial) 130 mg IM Q4H PRN PRN Reason: Alcohol Withdrawal Last Admin: 06/18/24 07:55 Dose: 130 mg Tamsulosin HCl (Tamsulosin Hcl 0.4 Mg Capsule) 0.8 mg PO BEDTIME [facility] Last Admin: 06/17/24 22:12 Dose: Not Given Allergies Allergies Allergy/AdvReac Type Severity Reaction Status Date / Time No Known Allergies Allergy Verified 06/12/24 13:15 Assessment & Plan Assessment & Plan (1) Delirium tremens: Status: Acute Code(s): F10.931 - Alcohol use, unspecified with withdrawal delirium Assessment and Plan: Refractory DTs --day 6 Diazepam 10mg q2H PRN -goal is to have CIWA <10 Consider ICU transfer for closer monitoring Total time managing care of this patient today __30__ minutes.
[2024-06-18] MEDS: Lactated Ringers 1,000 ML 100 ML IVCONT (11:27)
[2024-06-18 12:10] LABS: Glucose, Whole Blood 113 mg/dL (60-115)
--- NOTE | 2024-06-18 12:17 | PC.NURSE ---
trashing , pacing , hallucinations, tremors, yelling out ,swearing , CIWA 30 Tala Figueroa aware pt evaluated by provider at t5he bedside. Medicated with Phenobarbital 130 mg IM , repositioned in the bed , IV fluids infusing for hydration
[2024-06-18 12:34] LABS: Ammonia 48 umol/L (13-55)
[2024-06-18 12:38] LABS: Anion Gap 13 (12-20); Blood Urea Nitrogen 12 mg/dL (9-16); Carbon Dioxide 31 mmol/L (22-29); Chloride 104 mmol/L (96-108); Creatinine Clr Calc Pharmacy 142.4; Estimated Glomerular Filt Rate > 60; Glucose Random 104 mg/dL (60-115); Potassium 3.9 mmol/L (3.3-5.1); Sodium 144 mmol/L (135-145)
--- NOTE | 2024-06-18 13:21 | HO.PM.IMPN ---
Subjective Subjective Date of Service: 06/18/24 Interval History: seen and examined this morning Follow-up for alcohol withdrawal Patient awake alert confused, hallucinating shouting/agitated Review of Systems unable to obtain review of systems Physical Exam Vital Signs: Vital Signs: Last Vital Signs Temp 97.6 F 06/18/24 11:48 Pulse 98 06/18/24 11:48 Resp 20 06/18/24 11:48 BP 144/95 H 06/18/24 11:48 Pulse Ox 94 06/18/24 11:48 O2 Del Method Oxymask 06/18/24 11:48 O2 Flow Rate 4 06/18/24 11:48 Oxygen Flow Rate 4 06/16/24 12:00 BMI result Body Mass Index 32.4 Const: Other: awake, confused Resp: Effort & Inspection: no respiratory distress and no use of accessory muscles Cardio: Rate: tachycardic Neuro: General: moves all extremities Objective Data Active Medications Acetaminophen (Acetaminophen 325 Mg Tablet) 650 mg PO Q6H PRN PRN Reason: Pain, Mild (Pain Scale 1-3) Last Admin: 06/18/24 07:54 Dose: 650 mg Documented By: KRISTIAN Buprenorphine/Naloxone (Buprenorphine/Naloxone 8/2 Mg Film) 2 film BUCCAL BEDTIME [facility] Last Admin: 06/17/24 22:11 Dose: Not Given Documented By: LAZARUS Non-Admin Reason: Patient Asleep Buspirone HCl (Buspirone Hcl 5 Mg Tablet) 5 mg PO BID [facility] Last Admin: 06/18/24 10:48 Dose: Not Given Documented By: KRISTIAN Non-Admin Reason: Patient Refused Enoxaparin Sodium (Enoxaparin Sodium 40 Mg/0.4 Ml Syringe) 40 mg SUBCUT Q24H [facility] Last Admin: 06/17/24 18:22 Dose: 40 mg Documented By: KRISTIAN Finasteride (Finasteride 5 Mg Tablet) 5 mg PO DAILY [facility] Last Admin: 06/18/24 10:47 Dose: Not Given Documented By: KRISTIAN Non-Admin Reason: Patient Refused Folic Acid (Folic Acid 1 Mg Tablet) 1 mg PO DAILY [facility] Last Admin: 06/18/24 10:47 Dose: Not Given Documented By: KRISTIAN Non-Admin Reason: Patient Refused Thiamine HCl 500 mg/ Sodium (Chloride) 105 mls @ 210 mls/hr IV Q12H [facility] Stop: 06/19/24 09:59 Last Infusion: 06/18/24 11:34 Dose: Infused Documented By: KRISTIAN Insulin Human Lispro (Insulin Lispro 100 Unit/Ml 3 Ml Vial) 0 unit SUBCUT QIDACHS [facility]; Protocol Last Admin: 06/18/24 13:05 Dose: Not Given Documented By: KRISTIAN Non-Admin Reason: No Insulin Coverage Magnesium Oxide (Magnesium Oxide 400 Mg Tablet) 400 mg PO DAILY [facility] Last Admin: 06/18/24 10:47 Dose: Not Given Documented By: KRISTIAN Non-Admin Reason: Patient Refused Melatonin (Melatonin 3 Mg Tablet) 6 mg PO BEDTIME PRN PRN Reason: Insomnia Metoprolol Succinate (Metoprolol Succinate Er 25 Mg Tab.Er.24h) 25 mg PO DAILY [facility]; Protocol Last Admin: 06/18/24 07:53 Dose: 25 mg Documented By: KRISTIAN Multivitamins/Vitamin C (Multivitamin Tablet) 1 tab PO DAILY [facility] Last Admin: 06/18/24 10:47 Dose: Not Given Documented By: KRISTIAN Non-Admin Reason: Patient Refused Nicotine (Nicotine 21 Mg Patch.Td24) 21 mg TRANSDERMA DAILY [facility] Last Admin: 06/18/24 10:38 Dose: 21 mg Documented By: KRISTIAN Ondansetron HCl (Ondansetron Hcl 4 Mg/2 Ml Vial) 4 mg IVPUSH Q8H PRN PRN Reason: Nausea and Vomiting Last Admin: 06/17/24 18:21 Dose: 4 mg Documented By: KRISTIAN Pharmacy Consult (Consult Rx Etoh Phenob Im/Po) 1 each MISCELLANE ONCE PRN; Protocol PRN Reason: Consult order Tamsulosin HCl (Tamsulosin Hcl 0.4 Mg Capsule) 0.8 mg PO BEDTIME [facility] Last Admin: 06/17/24 22:12 Dose: Not Given Documented By: LAZARUS Non-Admin Reason: Patient Asleep Labs 06/16/24 06:47 06/18/24 11:56 Labs: Laboratory Results - last 24 hr 06/17/24 06/17/24 06/17/24 13:21 16:35 20:47 Hold Purple Top VBG pH 7.39 VBG pCO2 65 VBG pO2 55 VBG HCO3 39 H VBG O2 Saturation 89.0 VBG Base Excess 11.8 Anion Gap Estim Creat Clear Calc Estimated GFR POC Glucose 137 H 135 H Random Glucose Calcium Ammonia 06/18/24 06/18/24 06/18/24 07:34 11:46 11:55 Hold Purple Top VBG pH VBG pCO2 VBG pO2 VBG HCO3 VBG O2 Saturation VBG Base Excess Anion Gap Estim Creat Clear Calc Estimated GFR POC Glucose 117 H 113 Random Glucose Calcium Ammonia 48 06/18/24 11:56 Hold Purple Top SEE NOTE VBG pH VBG pCO2 VBG pO2 VBG HCO3 VBG O2 Saturation VBG Base Excess Anion Gap 13 Estim Creat Clear Calc 142.4 Estimated GFR > 60 POC Glucose Random Glucose 104 Calcium 9.0 Ammonia Microbiology Microbiology Results: Microbiology 06/12/24 17:00 Blood Culture - Final Blood - Venous No growth after 5 days. 06/12/24 16:45 Blood Culture - Final Blood - Venous No growth after 5 days. Assessment and Plan (1) Delirium tremens: Status: Acute Plan 63-year-old male with history of alcohol use disorder with history of alcohol withdrawal, alcohol withdrawal seizures and multiple admissions for alcohol withdrawal, opioid use disorder on Suboxone, history of aspiration, anxiety, depression, diabetes who presents to the emergency department acutely intoxicated seeking detox Toxic metabolic encephalopathy due to etoh withdrawal initially admitted to the ICU and was on Precedex drip. has been getting Q 4 hour IM phenobarbital with p.r.n. Ativan, also requiring multiple doses of IV diazepam. Continues to be confused, agitated. d/w ICU, will transfer back to ICU for further care Alcohol use disorder with alcohol withdrawal History of severe alcohol withdrawal in the past with history of alcohol withdrawal seizures and multiple admissions requiring ICU level care Thiamine, folate, magnesium aspiration, seizure precautions addiction medicine consult Continue phenobarbital DM2 SSI, POCs diabetic diet OUD continue suboxone Mood continue buspirone, duloxetine Neuropathy hold gabapentin d/t encephalopathy BPH finasteride HTN metoprolol Smoker NRT Obesity class I. BMI 30.8 Discussed importance of weight management as this may be contributing to worsening of other comorbidities DVT ppx - lovenox Full code Quality Stroke Does the patient have a stroke diagnosis?: No VTE Prior VTE?: No VTE Risk Level:: Medical - low VTE Device Contraindication: N/A - Device Ordered VTE Drug Contraindication: N/A - Med Ordered
--- NOTE | 2024-06-18 14:22 | PM.CCN ---
Critical Care Event Note Summary Date of Service: 06/18/24 Code activated: No Narrative: 63-year-old gentleman with delirium tremens with episodes of agitation difficult to manage on telemetry service, transferred to intensive care unit for close monitoring and possible sedative drips. Critical Care Time (minutes): 0
[2024-06-18 16:48] LABS: Glucose, Whole Blood 123 mg/dL (60-115)
[2024-06-18] MEDS: Metoprolol Tartrate 5 MG/5 ML VIAL IVPUSH (16:55)
--- NOTE | 2024-06-18 16:55 | PC.NURSE ---
Addendum entered by Anastasiya Bergeron RN 06/18/24 18:40: At approx 1800, SBPs back up to 170s-180s- MD notified. IVP labetelol ordered and given per MAR with good effect. Original Note: Assumed care at approx. 1430- pt. transferred to ICU from Med/Tele. Pt. A&O to self only, drowsy but arousable to name. Does not answer questions appropriately, resistive to care and requiring frequent re-direction when awake. PRN versed ordered but not needed at this time. Pt. HR 80s-90s when asleep, 90s-120s while awake. SBPs 160s, MD aware. at approx 1700 SBPs sustaining 180s, MD notified-5mg lopressor IVP ordered and given per MAR with good effect. Pt. on 6L oxymask at the time care was assumed, O2 sats >96%. Pt. titrated to 2L oxymask, O2 sat sustaining >92%. Pt. with apneic episodes while asleep, O2 sats briefly dropping to low 80s before recovering- MD aware. Mccarthy remains in place, draining dark yellow urine. Q2 repositioning performed, oral care performed PRN as tolerated. Hovermat system in place. Bed locked in lowest position, call rodriguez within reach. 1:1 sitter remains at bedside for safety. Plan of care ongoing.
[2024-06-18] MEDS: Enoxaparin Sodium 40 MG/0.4 ML SYRINGE SUBCUT (17:24)
[2024-06-18] MEDS: Labetalol HCL 100 MG/20 ML VIAL 20 MG IVPUSH (18:25)
[2024-06-18] MEDS: dexmedeTOMIDidine HCL/NS 400 MCG/100 ML INFUS..BTL 25.63 MCG IVCONT (20:21)
[2024-06-18 21:03] LABS: Glucose, Whole Blood 129 mg/dL (60-115)
[2024-06-18] MEDS: dexmedeTOMIDidine HCL/NS 400 MCG/100 ML INFUS..BTL 38.44 MCG IVCONT (23:45)
--- NOTE | 2024-06-18 23:58 | PC.NURSE ---
Addendum entered by Byron West RN 06/19/24 05:59: pt remains under the influences of precedex infusion d/t agitation. when allowed to emerge from sedation, pt is restless and confused. he has pulled at lines and removed hospital gown laying naked on hospital bed. pt then proceeded to pull off monitor leads and attempted to climb over side rail of bed. pt is confused to time and place. pt is maintained on a simple face face mask with o2 flow 5 lpm. sao2 91-93%. upper airway congestion is noted. asculation of a/p lung fileds reveals fine crackles in the LLL. ecg displays sr with unifocal pvcs. b/p has been stable. pt has been kept npo d/t concerns for aspiration. u/o has improved to 30-40 ml/hr following LR 250 ml x 2. Original Note: pt experiencing decreased urinary output. u/o approximately 10 ml/hr. pt is npo d/t sedation. provider paula notified of decreased u/o. bladder scan performed. no residual urine noted with scan. please note 250 ml LR given over 30 min. have been unable to chart this bolus d/t providers construction of bolus.
[2024-06-19] VITALS (32 sets, daily range): BP systolic 113–178; BP diastolic 72–117; PULSE 74–93; RESP 14–22; TEMP 36.4–38.4; O2SAT 89–95
[2024-06-19] MEDS: dexmedeTOMIDidine HCL/NS 400 MCG/100 ML INFUS..BTL 23.06 MCG IVCONT (02:46)
[2024-06-19 05:29] LABS: VBG HCO3 38 mmol/L (22-26); VBG pCO2 62 mmHg; VBG pH 7.39 (7.32-7.43); VBG pO2 70 mmHg
[2024-06-19 05:44] LABS: MANUAL DIFF FLAG NO
[2024-06-19 05:46] LABS: Basophils Absolute Auto 0.1 X10*3/uL (0.0-0.2); Basophils Percent Auto 0.6 % (0-2); Eosinophils Absolute Auto 0.5 X10*3/uL (0.0-0.4); Eosinophils Percent Auto 5.1 % (0-4); Hemoglobin 12.9 g/dl (14.0-18.0); Imm Gran Abs Auto 0.02 X10*3/uL (0.00-0.03); Imm Gran Pct Auto 0.2 % (0.0-0.4); Lymphocytes Absolute Auto 2.9 X10*3/uL (1.2-4.9); Mean Corpuscular HGB Conc 33.1 g/dl (31.0-36.0); Mean Corpuscular Hemoglobin 30.9 pg (27.0-33.0); Mean Corpuscular Volume 93.5 fL (80.0-98.0); Mean Platelet Volume 10.7 fL (9.4-12.4); Monocytes Absolute Auto 0.9 X10*3/uL (0.1-1.2); Monocytes Percent Auto 9.3 % (2-11); Neutrophils Absolute Auto 5.6 x10*3/uL (2.0-8.3); Neutrophils Percent Auto 55.8 % (45-73); Platelet Count 174 X10*3/uL (160-400); Red Blood Count 4.17 X10*6/uL (4.60-5.80); Red Cell Distribution Width 13.9 % (11.0-16.0)
[2024-06-19 05:49] LABS: Venous Blood Gas Refer to POC result
[2024-06-19 06:05] LABS: Alanine Aminotransferase 20 U/L (0-40); Albumin Level 3.7 g/dL (3.5-5.0); Alkaline Phosphatase 59 U/L (39-117); Anion Gap 13 (12-20); Aspartate Amino Transferase 31 U/L (5-37); Bilirubin Total 0.3 mg/dL (0.0-1.0); Blood Urea Nitrogen 14 mg/dL (9-16); Calcium 8.9 mg/dL (8.4-10.2); Carbon Dioxide 32 mmol/L (22-29); Chloride 105 mmol/L (96-108); Estimated Glomerular Filt Rate > 60; Glucose Random 117 mg/dL (60-115); Magnesium 2.1 mg/dL (1.6-2.6); Sodium 146 mmol/L (135-145); Total Protein 6.4 g/dL (6.5-8.0)
--- NOTE | 2024-06-19 10:28 | P.PNCC_ITS ---
Subjective Subjective Date of Service: 06/19/24 Interval History: 63-year-old history alcohol dependence with prior withdrawal, diabetes mellitus and depression anxiety admitted on 06/12/2024 with alcohol intoxication and withdrawal requiring sedative drips and ICU level of monitoring. Delirium tremens improves and patient was transferred to telemetry morrow on 06/15/2024. Further hospital course significant for waxing and waning delirium tremens symptoms with patient being transferred back to intensive care unit on 06/18/2024 for close monitoring. Overnight with oscillating alcohol withdrawal symptoms requiring Precedex drip. Critical Care Time (minutes): 0 Physical Exam 2 Vital Signs: Vital Signs: Last Vital Signs Temp 97.7 F 06/19/24 04:00 Pulse 81 06/19/24 08:00 Resp 15 06/19/24 08:00 BP 145/90 H 06/19/24 08:00 Pulse Ox 93 06/19/24 08:00 O2 Del Method Oxymask 06/19/24 08:00 O2 Flow Rate 2 06/19/24 08:00 Oxygen Flow Rate 4 06/16/24 12:00 BMI result Body Mass Index 32.4 Const: General: no acute distress and lethargic Orientation/consciousness: lethargic Eyes: Sclerae: sclerae normal EOM: EOMs intact bilaterally Neck: Neck: Yes no lymphadenopathy, Yes trachea midline and Yes supple Resp: Effort & Inspection: normal respiratory effort and no respiratory distress Auscultation: clear to auscultation bilaterally Cardio: Rate: regular rate Rhythm: regular rhythm Heart sounds: no gallops, no murmurs and no rubs GI: Palpation (GI): Soft to palpation and Other GI palpation findings present ( Nontender) Auscultation: normal bowel sounds Extrem: General: Yes no pedal edema, No clubbing and No cyanosis Objective Data Labs 06/19/24 05:19 06/19/24 05:19 Labs: Laboratory Results - last 24 hr 06/18/24 06/18/24 06/18/24 11:46 11:55 11:56 WBC RBC Hgb Hct MCV MCH MCHC RDW Plt Count MPV Immature Gran % (Auto) Neut % (Auto) Lymph % (Auto) [place] % (Auto) Eos % (Auto) Baso % (Auto) Lymph # (Auto) [place] # (Auto) Eos # (Auto) Baso # (Auto) Abs Immat Gran (auto) Absolute Neuts (auto) Absolute Nucleated RBC Nucleated RBC % (auto) Hold Purple Top SEE NOTE VBG pH VBG pCO2 VBG pO2 VBG HCO3 VBG O2 Saturation VBG Base Excess Sodium 144 Potassium 3.9 Chloride 104 Carbon Dioxide 31 H Anion Gap 13 BUN 12 Creatinine 0.62 Estim Creat Clear Calc 142.4 Estimated GFR > 60 POC Glucose 113 Random Glucose 104 Calcium 9.0 Phosphorus Magnesium Total Bilirubin AST ALT Alkaline Phosphatase Ammonia 48 Total Protein Albumin 06/18/24 06/18/24 06/19/24 16:45 20:54 05:19 WBC 10.0 RBC 4.17 L Hgb 12.9 L Hct 39.0 L MCV 93.5 MCH 30.9 MCHC 33.1 RDW 13.9 Plt Count 174 MPV 10.7 Immature Gran % (Auto) 0.2 Neut % (Auto) 55.8 Lymph % (Auto) 29.0 [place] % (Auto) 9.3 Eos % (Auto) 5.1 H Baso % (Auto) 0.6 Lymph # (Auto) 2.9 [place] # (Auto) 0.9 Eos # (Auto) 0.5 H Baso # (Auto) 0.1 Abs Immat Gran (auto) 0.02 Absolute Neuts (auto) 5.6 Absolute Nucleated RBC 0.000 Nucleated RBC % (auto) 0.0 Hold Purple Top VBG pH VBG pCO2 VBG pO2 VBG HCO3 VBG O2 Saturation VBG Base Excess Sodium 146 H Potassium 4.0 Chloride 105 Carbon Dioxide 32 H Anion Gap 13 BUN 14 Creatinine 0.64 Estim Creat Clear Calc 138.0 Estimated GFR > 60 POC Glucose 123 H 129 H Random Glucose 117 H Calcium 8.9 Phosphorus 3.0 Magnesium 2.1 Total Bilirubin 0.3 AST 31 ALT 20 Alkaline Phosphatase 59 Ammonia Total Protein 6.4 L Albumin 3.7 06/19/24 05:26 WBC RBC Hgb Hct MCV MCH MCHC RDW Plt Count MPV Immature Gran % (Auto) Neut % (Auto) Lymph % (Auto) [place] % (Auto) Eos % (Auto) Baso % (Auto) Lymph # (Auto) [place] # (Auto) Eos # (Auto) Baso # (Auto) Abs Immat Gran (auto) Absolute Neuts (auto) Absolute Nucleated RBC Nucleated RBC % (auto) Hold Purple Top VBG pH 7.39 VBG pCO2 62 VBG pO2 70 VBG HCO3 38 H VBG O2 Saturation 94.0 VBG Base Excess 11.0 Sodium Potassium Chloride Carbon Dioxide Anion Gap BUN Creatinine Estim Creat Clear Calc Estimated GFR POC Glucose Random Glucose Calcium Phosphorus Magnesium Total Bilirubin AST ALT Alkaline Phosphatase Ammonia Total Protein Albumin Microbiology Microbiology Results: Microbiology 06/12/24 17:00 Blood - Venous Blood Culture - Final No growth after 5 days. 06/12/24 16:45 Blood - Venous Blood Culture - Final No growth after 5 days. Progress Note: A&P Assessment and plan (1) Delirium tremens: Status: Acute (2) Diabetes: Status: Acute Plan Assessment: 63-year-old gentleman admitted with alcohol intoxication further complicated by delirium tremens requiring sedative drips, now improved Plan: Neuro: Delirium tremens, continue to titrate off sedative nebs. Cardiac: No acute issues. Pulmonary: No acute issues. Renal: No acute issues. Endo: No acute issues. Underlying diabetes mellitus continue sliding scale insulin. GI: No acute issues. ID: No acute issues Heme/Onc: No acute issues. Psych: No acute issues. Miscellaneous: No acute issues. Prophylaxis: Lovenox Diet: NPO Quality Stroke Does the patient have a stroke diagnosis?: No VTE Prior VTE?: No VTE Risk Level:: Medical - low VTE Device Contraindication: N/A - Device Ordered VTE Drug Contraindication: N/A - Med Ordered
[2024-06-19 11:21] LABS: Glucose, Whole Blood 115 mg/dL (60-115)
--- NOTE | 2024-06-19 12:21 | MHC.CM.PN ---
Pt transferred to ICU on 06/18 for management of ETOH w/d behaviors: Pt medicated - agitated at times: 1:1 sitter present. Pt will be weaned off dex gtt and likely transferred back to floor for continued care. CM to follow
[2024-06-19] MEDS: Midazolam HCl 2 MG/2 ML VIAL IVPUSH ×3 (12:30→15:58)
[2024-06-19] MEDS: propofoL 200 MG/20 ML VIAL 50 MG IVPUSH (12:45)
[2024-06-19] MEDS: dexmedeTOMIDidine HCL/NS 400 MCG/100 ML INFUS..BTL 38.44 MCG IVCONT ×5 (13:12→23:15)
[2024-06-19] MEDS: Labetalol HCL 100 MG/20 ML VIAL 20 MG IVPUSH (15:26)
[2024-06-19 16:28] LABS: Glucose, Whole Blood 145 mg/dL (60-115)
[2024-06-19] MEDS: Midazolam HCl 2 MG/2 ML VIAL 4 MG IVPUSH (18:20)
--- NOTE | 2024-06-19 19:12 | PC.NURSE ---
Assumed care at 0700- pt. sedated via precedex gtt, titrated off per MAY. At approx. 1220 pt. became restless and agitated, A&O to self only. Pt attempting to get our of bed, pull at tubes/lines, unresponsive to redirection. Pt c/o discomfort from cooper, cooper removed. Pt. became combative, security called to bedside. 4 mg versed given per MD with slight effect. 50mg propofol IVP administered by MD with good effect, precedex gtt restarted per MAY. Additional PRN versed given per MAY, administered early per MD. SBPs 170s-180s, PRN labetelol ordered and given per MAY. Bladder scan performed at approx 1800 for 390cc. MD notified, ordered to reinsert cooper. 4 mg versed given per MAY prior to cooper insertion for agitation and restlessness. Q2 repositioning performed. Report given to shift supervisor RN. Plan of care ongoing.
[2024-06-19 20:41] LABS: Glucose, Whole Blood 136 mg/dL (60-115)
[2024-06-19] MEDS: Buprenorphine/Naloxone 8/2 mg FILM 2 FILM BUCCAL (20:46)
[2024-06-20] VITALS (25 sets, daily range): BP systolic 118–158; BP diastolic 65–104; PULSE 81–92; RESP 10–22; TEMP 36.8–38.5; O2SAT 88–98; BMI 31.7
[2024-06-20] MEDS: dexmedeTOMIDidine HCL/NS 400 MCG/100 ML INFUS..BTL 33.31 MCG IVCONT ×3 (01:39→07:34)
[2024-06-20] MEDS: Midazolam HCl 2 MG/2 ML VIAL IVPUSH ×6 (02:17→20:46)
[2024-06-20 04:48] LABS: VBG Base Excess 9.3 mmol/L; VBG HCO3 33 mmol/L (22-26); VBG pCO2 44 mmHg; VBG pH 7.48 (7.32-7.43); VBG pO2 50 mmHg
[2024-06-20 04:56] LABS: Venous Blood Gas Refer to POC result
[2024-06-20 05:08] LABS: MANUAL DIFF FLAG NO
[2024-06-20 05:09] LABS: Basophils Absolute Auto 0.1 X10*3/uL (0.0-0.2); Basophils Percent Auto 0.6 % (0-2); Eosinophils Absolute Auto 0.5 X10*3/uL (0.0-0.4); Eosinophils Percent Auto 5.1 % (0-4); Hematocrit 39.1 % (42.0-52.0); Hemoglobin 13.4 g/dl (14.0-18.0); Imm Gran Abs Auto 0.02 X10*3/uL (0.00-0.03); Imm Gran Pct Auto 0.2 % (0.0-0.4); Lymphocytes Absolute Auto 2.1 X10*3/uL (1.2-4.9); Lymphocytes Percent Auto 21.8 % (20-40); Mean Corpuscular HGB Conc 34.3 g/dl (31.0-36.0); Mean Corpuscular Hemoglobin 31.2 pg (27.0-33.0); Mean Corpuscular Volume 91.1 fL (80.0-98.0); Mean Platelet Volume 10.9 fL (9.4-12.4); Monocytes Absolute Auto 1.3 X10*3/uL (0.1-1.2); Monocytes Percent Auto 12.9 % (2-11); Neutrophils Absolute Auto 5.8 x10*3/uL (2.0-8.3); Neutrophils Percent Auto 59.4 % (45-73); Platelet Count 193 X10*3/uL (160-400); Red Blood Count 4.29 X10*6/uL (4.60-5.80); Red Cell Distribution Width 13.4 % (11.0-16.0); White Blood Count 9.8 X10*3/uL (4.8-10.8)
[2024-06-20 05:26] LABS: Alanine Aminotransferase 18 U/L (0-40); Albumin Level 3.7 g/dL (3.5-5.0); Alkaline Phosphatase 63 U/L (39-117); Anion Gap 14 (12-20); Aspartate Amino Transferase 24 U/L (5-37); Bilirubin Total 0.4 mg/dL (0.0-1.0); Blood Urea Nitrogen 15 mg/dL (9-16); Calcium 8.9 mg/dL (8.4-10.2); Carbon Dioxide 29 mmol/L (22-29); Chloride 104 mmol/L (96-108); Creatinine Clr Calc Pharmacy 126.5; Estimated Glomerular Filt Rate > 60; Glucose Random 121 mg/dL (60-115); Magnesium 2.1 mg/dL (1.6-2.6); Phosphorus 3.6 mg/dL (2.7-4.5); Potassium 4.2 mmol/L (3.3-5.1); Sodium 143 mmol/L (135-145); Total Protein 6.5 g/dL (6.5-8.0)
--- NOTE | 2024-06-20 07:06 | PC.NURSE ---
Critical Care Nursing Note? Assumed care at 1900, patient lethargic, sedated on precedex gtt, intermittently opens eyes with name and physical stimuli. Patient has occasional breaks in light sedation, will call out and attempt to sit up in bed. Versed 2mg administered as needed see MAR. CIWA scores are not accurate, patient unable to respond to all questions.
[2024-06-20 07:51] LABS: Glucose, Whole Blood 131 mg/dL (60-115)
[2024-06-20] MEDS: Midazolam HCl 2 MG/2 ML VIAL 4 MG IVPUSH (08:23)
[2024-06-20] MEDS: busPIRone HCl 5 MG TABLET PO ×2 (10:10→20:39)
[2024-06-20] MEDS: chlordiazePOXIDE HCl 25 MG CAPSULE 50 MG PO ×3 (10:10→20:38)
[2024-06-20] MEDS: Metoprolol Succinate ER 25 MG TAB.ER.24H PO (10:10)
[2024-06-20] MEDS: dexmedeTOMIDidine HCL/NS 400 MCG/100 ML INFUS..BTL 38.44 MCG IVCONT ×5 (10:39→21:38)
--- NOTE | 2024-06-20 11:15 | P.PNCC_ITS ---
Subjective Subjective Date of Service: 06/20/24 Interval History: 63-year-old history alcohol dependence with prior withdrawal, diabetes mellitus and depression anxiety admitted on 06/12/2024 with alcohol intoxication and withdrawal requiring sedative drips and ICU level of monitoring. Delirium tremens improves and patient was transferred to telemetry morrow on 06/15/2024. Further hospital course significant for waxing and waning delirium tremens symptoms with patient being transferred back to intensive care unit on 06/18/2024 for close monitoring and sedative drips. No events overnight. Continues to require sedative drips. Critical Care Time (minutes): 45 Physical Exam 2 Vital Signs: Vital Signs: Last Vital Signs Temp 100.6 F H 06/20/24 08:00 Pulse 82 06/20/24 10:10 Resp 12 06/20/24 08:00 BP 143/92 H 06/20/24 10:10 Pulse Ox 94 06/20/24 08:00 O2 Del Method Oxymask 06/20/24 08:00 O2 Flow Rate 4 06/20/24 08:00 Oxygen Flow Rate 4 06/16/24 12:00 BMI result Body Mass Index 31.7 Const: General: no acute distress and lethargic (Intermittently agitated) O rientation/consciousness: lethargic (Intermittently agitated) Eyes: Sclerae: sclerae normal EOM: EOMs intact bilaterally Neck: Neck: Yes no lymphadenopathy, Yes trachea midline and Yes supple Resp: Effort & Inspection: normal respiratory effort and no respiratory distress Auscultation: clear to auscultation bilaterally Cardio: Rate: regular rate Rhythm: regular rhythm Heart sounds: no gallops, no murmurs and no rubs GI: Palpation (GI): Soft to palpation and Other GI palpation findings present ( Nontender) Auscultation: normal bowel sounds Extrem: General: Yes no pedal edema, No clubbing and No cyanosis Objective Data Labs 06/20/24 04:37 06/20/24 04:37 Labs: Laboratory Results - last 24 hr 06/19/24 06/19/24 06/19/24 11:16 16:24 20:35 WBC RBC Hgb Hct MCV MCH MCHC RDW Plt Count MPV Immature Gran % (Auto) Neut % (Auto) Lymph % (Auto) [place] % (Auto) Eos % (Auto) Baso % (Auto) Lymph # (Auto) [place] # (Auto) Eos # (Auto) Baso # (Auto) Abs Immat Gran (auto) Absolute Neuts (auto) Absolute Nucleated RBC Nucleated RBC % (auto) VBG pH VBG pCO2 VBG pO2 VBG HCO3 VBG O2 Saturation VBG Base Excess Sodium Potassium Chloride Carbon Dioxide Anion Gap BUN Creatinine Estim Creat Clear Calc Estimated GFR POC Glucose 115 145 H 136 H Random Glucose Calcium Phosphorus Magnesium Total Bilirubin AST ALT Alkaline Phosphatase Total Protein Albumin 06/20/24 06/20/24 06/20/24 04:37 04:43 07:47 WBC 9.8 RBC 4.29 L Hgb 13.4 L Hct 39.1 L MCV 91.1 MCH 31.2 MCHC 34.3 RDW 13.4 Plt Count 193 MPV 10.9 Immature Gran % (Auto) 0.2 Neut % (Auto) 59.4 Lymph % (Auto) 21.8 [place] % (Auto) 12.9 H Eos % (Auto) 5.1 H Baso % (Auto) 0.6 Lymph # (Auto) 2.1 [place] # (Auto) 1.3 H Eos # (Auto) 0.5 H Baso # (Auto) 0.1 Abs Immat Gran (auto) 0.02 Absolute Neuts (auto) 5.8 Absolute Nucleated RBC 0.000 Nucleated RBC % (auto) 0.0 VBG pH 7.48 H VBG pCO2 44 VBG pO2 50 VBG HCO3 33 H VBG O2 Saturation 85.0 VBG Base Excess 9.3 Sodium 143 Potassium 4.2 Chloride 104 Carbon Dioxide 29 Anion Gap 14 BUN 15 Creatinine 0.69 Estim Creat Clear Calc 126.5 Estimated GFR > 60 POC Glucose 131 H Random Glucose 121 H Calcium 8.9 Phosphorus 3.6 Magnesium 2.1 Total Bilirubin 0.4 AST 24 ALT 18 Alkaline Phosphatase 63 Total Protein 6.5 Albumin 3.7 Microbiology Microbiology Results: Microbiology 06/12/24 17:00 Blood - Venous Blood Culture - Final No growth after 5 days. 06/12/24 16:45 Blood - Venous Blood Culture - Final No growth after 5 days. Progress Note: A&P Assessment and plan (1) Delirium tremens: Status: Acute (2) Diabetes: Status: Acute (3) Hypertension: Status: Acute Plan Assessment: 63-year-old gentleman admitted with alcohol intoxication further complicated by delirium tremens requiring sedative drips, now improved Plan: Neuro: Delirium tremens, continue to titrate off sedative nebs. Cardiac: No acute issues. Pulmonary: No acute issues. Renal: No acute issues. Endo: No acute issues. Underlying diabetes mellitus continue sliding scale insulin. GI: No acute issues. ID: No acute issues Heme/Onc: No acute issues. Psych: No acute issues. Miscellaneous: No acute issues. Prophylaxis: Lovenox Diet: NPO Quality Stroke Does the patient have a stroke diagnosis?: No VTE Prior VTE?: No VTE Risk Level:: Medical - low VTE Device Contraindication: N/A - Device Ordered VTE Drug Contraindication: N/A - Med Ordered
[2024-06-20 12:23] LABS: Glucose, Whole Blood 129 mg/dL (60-115)
[2024-06-20 17:14] LABS: Glucose, Whole Blood 125 mg/dL (60-115)
[2024-06-20] MEDS: Enoxaparin Sodium 40 MG/0.4 ML SYRINGE SUBCUT (17:58)
--- NOTE | 2024-06-20 18:57 | PC.NURSE ---
Neuro: Oriented to self only, despite frequent redirection provided pt experienced frequent episodes of agitation/combativeness, requiring security at bedside in multiple occasions through out the shift. On precedex gtt and Versed IVP prn given per MAY. 1:1 sitter at bedside.? Respiratory: On 4-6L oxymask. Rhonchorous breath sounds bilaterally upper lungs. Cardiac:Sinus Rhythm on tele GI: LBM 3 , +bowel sounds,? POC,? sliding scale insulin per MAY. : Mccarthy in place, patent and draining? Lines: peripheral IVs.
[2024-06-20] MEDS: Buprenorphine/Naloxone 8/2 mg FILM 2 FILM BUCCAL (20:40)
[2024-06-20 20:57] LABS: Glucose, Whole Blood 120 mg/dL (60-115)
[2024-06-21] VITALS (40 sets, daily range): BP systolic 78–166; BP diastolic 45–101; PULSE 58–83; RESP 9–18; TEMP 34.8–37.8; O2SAT 90–100
[2024-06-21] MEDS: dexmedeTOMIDidine HCL/NS 400 MCG/100 ML INFUS..BTL 38.44 MCG IVCONT ×4 (00:09→07:53)
[2024-06-21] MEDS: Midazolam HCl 2 MG/2 ML VIAL IVPUSH (04:34)
[2024-06-21 04:51] LABS: VBG Base Excess 7.6 mmol/L; VBG HCO3 33 mmol/L (22-26); VBG pCO2 48 mmHg; VBG pH 7.43 (7.32-7.43); VBG pO2 52 mmHg
[2024-06-21 04:56] LABS: MANUAL DIFF FLAG NO
[2024-06-21 04:57] LABS: Basophils Absolute Auto 0.1 X10*3/uL (0.0-0.2); Basophils Percent Auto 0.6 % (0-2); Eosinophils Absolute Auto 0.5 X10*3/uL (0.0-0.4); Eosinophils Percent Auto 6.3 % (0-4); Hemoglobin 13.2 g/dl (14.0-18.0); Imm Gran Abs Auto 0.02 X10*3/uL (0.00-0.03); Imm Gran Pct Auto 0.3 % (0.0-0.4); Lymphocytes Absolute Auto 2.6 X10*3/uL (1.2-4.9); Lymphocytes Percent Auto 33.3 % (20-40); Mean Corpuscular HGB Conc 33.8 g/dl (31.0-36.0); Mean Corpuscular Hemoglobin 31.3 pg (27.0-33.0); Mean Corpuscular Volume 92.4 fL (80.0-98.0); Mean Platelet Volume 10.8 fL (9.4-12.4); Monocytes Absolute Auto 1.1 X10*3/uL (0.1-1.2); Monocytes Percent Auto 13.6 % (2-11); Neutrophils Absolute Auto 3.5 x10*3/uL (2.0-8.3); Neutrophils Percent Auto 45.9 % (45-73); Platelet Count 198 X10*3/uL (160-400); Red Blood Count 4.22 X10*6/uL (4.60-5.80); Red Cell Distribution Width 12.8 % (11.0-16.0); White Blood Count 7.7 X10*3/uL (4.8-10.8)
[2024-06-21 05:14] LABS: Albumin Level 3.5 g/dL (3.5-5.0); Anion Gap 13 (12-20); Blood Urea Nitrogen 14 mg/dL (9-16); Calcium 8.9 mg/dL (8.4-10.2); Carbon Dioxide 29 mmol/L (22-29); Chloride 102 mmol/L (96-108); Creatinine Clr Calc Pharmacy 143.1; Estimated Glomerular Filt Rate > 60; Glucose Random 118 mg/dL (60-115); Phosphorus 3.1 mg/dL (2.7-4.5); Potassium 4.2 mmol/L (3.3-5.1); Sodium 140 mmol/L (135-145)
[2024-06-21] MEDS: propofoL 200 MG/20 ML VIAL IVPUSH (06:26)
[2024-06-21] MEDS: propofoL 1,000 MG/100 ML VIAL 18.02 MG IVCONT (06:26)
[2024-06-21] MEDS: Norepinephrine Bitartrate/D5W 8 MG/250 ML PLAST..BAG 9.38 MG IVCONT ×2 (06:26→15:23)
--- NOTE | 2024-06-21 06:40 | W.PM.CCHP ---
Procedures Date of Service Date of Service: 06/21/24 <Aurelia Carias NP - Last Filed: 06/21/24 06:44> 06/21/24 <Herber Alvarado MD - Last Filed: 06/21/24 09:59> Intubation Intubation Comments: The pt became increasingly more agitated requiring high-dose sedatives and intubation for airway protection. He was preoxygenated with Ambu-bag 100%. RSI was carried out with the meds below. The glottis was visualized with 4 GlideScope, and the trachea was intubated with a 7.5 ETT via? indirect video visualization, atraumatic. BSBE, +CO2, SpO2 maintained.? The tube was secured at 25 cm at the upper lip. <Aurelia Carias NP - Last Filed: 06/21/24 06:44> Consent for Procedure: Emergent-no informed consent obtained <Aurelia Carias NP - Last Filed: 06/21/24 06:44> Time out performed: Yes <PEDRO PABLO Navas Last Filed: 06/21/24 06:44> Sedative: propofol <Aurelia Carias NP - Last Filed: 06/21/24 06:44> Mg given: 200 <PEDRO PABLO Navas Last Filed: 06/21/24 06:44> Laryngoscope: fiber optic video scope <Aurelia Carias NP - Last Filed: 06/21/24 06:44> ET tube size: 7.5 <PEDRO PABLO Navas Last Filed: 06/21/24 06:44> ET tube uncuffed: Yes <PEDRO PABLO Navas Last Filed: 06/21/24 06:44> Tube secured depth (cm): 25 <PEDRO PABLO Navas Last Filed: 06/21/24 06:44> Tube secured location: lips <PEDRO PABLO Navas Last Filed: 06/21/24 06:44> Tube placement confirmation: visualized tube passing through cords, equal breath sounds bilaterally, no breath sounds over epigastrium and confirmation by capnometry <PEDRO PABLO Navas Last Filed: 06/21/24 06:44> Patient tolerated procedure: well and no complications <Aurelia Carias NP - Last Filed: 06/21/24 06:44> Intubation complications: none <Aurelia Carias NP - Last Filed: 06/21/24 06:44>
[2024-06-21 06:44] LABS: Venous Blood Gas Refer to POC result
[2024-06-21 07:34] LABS: Glucose, Whole Blood 130 mg/dL (60-115)
--- NOTE | 2024-06-21 07:50 | PC.NURSE ---
Critical Care Nursing Note? Assumed care at 1900, patient drowsy, lightly sedated on precedex gtt. Patient has occasional breaks in light sedation. Patient with appropriate responses to questions throughout the shift. Patient still with occasional outbursts, staff has been able to redirect and deescalate. Versed 2mg administered as needed see MAR.? At 0615 the? patient became increasingly agitated and not redirectable. Staff made multiple attempts to keep the patient safe in the bed, and the patient began to kick at staff and use aggressive language. Security was called. Patient required an increase in sedation and the provider made the decision to intubate the patient. See MAR for sedation record.
[2024-06-21] MEDS: propofoL 1,000 MG/100 ML VIAL 24.02 MG IVCONT (09:44)
--- NOTE | 2024-06-21 09:59 | P.PNCC_ITS ---
Subjective Subjective Date of Service: 06/21/24 Interval History: 63-year-old history alcohol dependence with prior withdrawal, diabetes mellitus and depression anxiety admitted on 06/12/2024 with alcohol intoxication and withdrawal requiring sedative drips and ICU level of monitoring. Delirium tremens improves and patient was transferred to telemetry morrow on 06/15/2024. Further hospital course significant for waxing and waning delirium tremens symptoms with patient being transferred back to intensive care unit on 06/18/2024 for close monitoring and sedative drips. Overnight required intubation secondary to high sedative drip requirements. Critical Care Time (minutes): 45 Physical Exam 2 Vital Signs: Vital Signs: Last Vital Signs Temp 99.3 F 06/21/24 09:00 Pulse 66 06/21/24 09:00 Resp 18 06/21/24 09:00 BP 105/64 06/21/24 09:00 Pulse Ox 93 06/21/24 09:00 O2 Del Method Mechanical Ventil ation 06/21/24 09:00 O2 Flow Rate 3 06/21/24 06:00 FiO2 50 06/21/24 09:00 Oxygen Flow Rate 4 06/16/24 12:00 BMI result Body Mass Index 31.7 Const: General: no acute distress and other (Sedated on ventilatory support) Eyes: Sclerae: sclerae normal EOM: EOMs intact bilaterally Neck: Neck: Yes no lymphadenopathy, Yes trachea midline and Yes supple Resp: Auscultation: clear to auscultation bilaterally Cardio: Rate: regular rate Rhythm: regular rhythm Heart sounds: no gallops, no murmurs and no rubs GI: Palpation (GI): Soft to palpation and Other GI palpation findings present ( Nontender) Auscultation: normal bowel sounds Extrem: General: Yes no pedal edema, No clubbing and No cyanosis Objective Data Labs 06/21/24 04:42 06/21/24 04:42 Labs: Laboratory Results - last 24 hr 06/20/24 06/20/24 06/20/24 11:32 17:11 20:51 WBC RBC Hgb Hct MCV MCH MCHC RDW Plt Count MPV Immature Gran % (Auto) Neut % (Auto) Lymph % (Auto) [place] % (Auto) Eos % (Auto) Baso % (Auto) Lymph # (Auto) [place] # (Auto) Eos # (Auto) Baso # (Auto) Abs Immat Gran (auto) Absolute Neuts (auto) Absolute Nucleated RBC Nucleated RBC % (auto) VBG pH VBG pCO2 VBG pO2 VBG HCO3 VBG O2 Saturation VBG Base Excess Sodium Potassium Chloride Carbon Dioxide Anion Gap BUN Creatinine Estim Creat Clear Calc Estimated GFR POC Glucose 129 H 125 H 120 H Random Glucose Calcium Phosphorus Magnesium Albumin 06/21/24 06/21/24 06/21/24 04:42 04:46 07:30 WBC 7.7 RBC 4.22 L Hgb 13.2 L Hct 39.0 L MCV 92.4 MCH 31.3 MCHC 33.8 RDW 12.8 Plt Count 198 MPV 10.8 Immature Gran % (Auto) 0.3 Neut % (Auto) 45.9 Lymph % (Auto) 33.3 [place] % (Auto) 13.6 H Eos % (Auto) 6.3 H Baso % (Auto) 0.6 Lymph # (Auto) 2.6 [place] # (Auto) 1.1 Eos # (Auto) 0.5 H Baso # (Auto) 0.1 Abs Immat Gran (auto) 0.02 Absolute Neuts (auto) 3.5 Absolute Nucleated RBC 0.000 Nucleated RBC % (auto) 0.0 VBG pH 7.43 VBG pCO2 48 VBG pO2 52 VBG HCO3 33 H VBG O2 Saturation 85.0 VBG Base Excess 7.6 Sodium 140 Potassium 4.2 Chloride 102 Carbon Dioxide 29 Anion Gap 13 BUN 14 Creatinine 0.61 Estim Creat Clear Calc 143.1 Estimated GFR > 60 POC Glucose 130 H Random Glucose 118 H Calcium 8.9 Phosphorus 3.1 Magnesium 2.0 Albumin 3.5 Microbiology Microbiology Results: Microbiology 06/12/24 17:00 Blood - Venous Blood Culture - Final No growth after 5 days. 06/12/24 16:45 Blood - Venous Blood Culture - Final No growth after 5 days. Progress Note: A&P Assessment and plan (1) Delirium tremens: Status: Acute Plan Assessment: 63-year-old gentleman admitted with alcohol intoxication further complicated by delirium tremens requiring sedative drips, now improved Plan: Neuro: Delirium tremens, continue to titrate off sedative nebs. Cardiac: No acute issues. Pulmonary: Required intubation for high-dose sedative drips, continue to titrate off ventilatory support as tolerated. Renal: No acute issues. Endo: No acute issues. Underlying diabetes mellitus continue sliding scale insulin. GI: No acute issues. ID: No acute issues Heme/Onc: No acute issues. Psych: No acute issues. Miscellaneous: No acute issues. Prophylaxis: Lovenox, famotidine Diet: Tube feeds Critical care time spent: 45 minutes Quality Stroke Does the patient have a stroke diagnosis?: No VTE Prior VTE?: No VTE Risk Level:: Medical - low VTE Device Contraindication: N/A - Device Ordered VTE Drug Contraindication: N/A - Med Ordered
[2024-06-21] MEDS: Folic Acid 1 MG TABLET PO (10:18)
[2024-06-21] MEDS: Finasteride 5 MG TABLET PO (10:18)
[2024-06-21] MEDS: Multivitamin TABLET 1 TAB PO (10:18)
[2024-06-21] MEDS: chlordiazePOXIDE HCl 25 MG CAPSULE 50 MG PO ×3 (10:18→20:57)
[2024-06-21] MEDS: busPIRone HCl 5 MG TABLET PO ×2 (10:18→20:57)
[2024-06-21] MEDS: Magnesium Oxide 400 MG TABLET PO (10:18)
[2024-06-21 11:28] LABS: Glucose, Whole Blood 95 mg/dL (60-115)
[2024-06-21] MEDS: propofoL 1,000 MG/100 ML VIAL 30.03 MG IVCONT ×4 (13:52→23:45)
[2024-06-21] MEDS: Chlorhexidine Gluc Oral Rinse 15 ML MOUTHWASH BUCCAL ×2 (13:52→20:57)
[2024-06-21 18:01] LABS: Glucose, Whole Blood 124 mg/dL (60-115)
[2024-06-21] MEDS: Enoxaparin Sodium 40 MG/0.4 ML SYRINGE SUBCUT (18:09)
--- NOTE | 2024-06-21 19:07 | PC.NURSE ---
Assumed care @ 0700? Neuro: sedated/intubated, on? precedex and propofol gtt? per MAY. Does not open eyes , does not track, does not follow commands, ORTIZ occasionally? (passive ROM performed/reposition maintained).? Cardiac:Sinus Rhythm on tele, on levophed gtt per MAY GI: LBM 06/14 , +bowel sounds,? POC q6hrs,? sliding scale insulin per MAY. : Mccarthy in place, patent and draining? Lines: peripheral IVs.
--- NOTE | 2024-06-21 19:16 | PC.NURSE ---
Patient arrived at the ICU approx. at? 1445? from ED.? Neuro: Sedated/intubated,? rhonchurous throughout, on fentanyl and propofol gtt? per MAR. Does not open eyes , does not track, does not follow commands, ORTIZ occasionally? (passive ROM performed/reposition maintained). Cardiac: Sinus rhythm, Systolic BP in the 80?s, MAP 59. Dr. Alvarado made aware of the above vitals. 3L of LR ordered. GI:? LBM 4/6 , +bowel sounds, NPO, OG tube in place/clamp.? : Mccarthy in place,patent/ draining.? Infectious: IV antibiotic given, cultures pending. Lines: peripheral IVs .
[2024-06-21] MEDS: dexmedeTOMIDidine HCL/NS 400 MCG/100 ML INFUS..BTL 20.5 MCG IVCONT (19:36)
[2024-06-21] MEDS: Buprenorphine/Naloxone 8/2 mg FILM 2 FILM BUCCAL (21:07)
[2024-06-22] VITALS (39 sets, daily range): BP systolic 81–143; BP diastolic 43–81; PULSE 59–103; RESP 13–20; TEMP 35–38.2; O2SAT 90–96; BMI 31.7
[2024-06-22 00:12] LABS: Glucose, Whole Blood 123 mg/dL (60-115)
[2024-06-22] MEDS: dexmedeTOMIDidine HCL/NS 400 MCG/100 ML INFUS..BTL 20.5 MCG IVCONT ×3 (00:14→10:15)
[2024-06-22] MEDS: propofoL 1,000 MG/100 ML VIAL 30.03 MG IVCONT ×7 (03:01→22:31)
[2024-06-22 05:15] LABS: Glucose, Whole Blood 140 mg/dL (60-115)
[2024-06-22 05:33] LABS: VBG Base Excess 4.4 mmol/L; VBG HCO3 26 mmol/L (22-26); VBG pCO2 29 mmHg; VBG pH 7.54 (7.32-7.43); VBG pO2 50 mmHg
[2024-06-22 05:35] LABS: Venous Blood Gas Refer to POC result
[2024-06-22 05:41] LABS: MANUAL DIFF FLAG NO
[2024-06-22 05:43] LABS: Basophils Absolute Auto 0.1 X10*3/uL (0.0-0.2); Basophils Percent Auto 0.6 % (0-2); Eosinophils Absolute Auto 0.4 X10*3/uL (0.0-0.4); Hematocrit 38.4 % (42.0-52.0); Hemoglobin 13.6 g/dl (14.0-18.0); Imm Gran Abs Auto 0.02 X10*3/uL (0.00-0.03); Imm Gran Pct Auto 0.2 % (0.0-0.4); Lymphocytes Absolute Auto 1.8 X10*3/uL (1.2-4.9); Lymphocytes Percent Auto 20.4 % (20-40); Mean Corpuscular HGB Conc 35.4 g/dl (31.0-36.0); Mean Corpuscular Hemoglobin 31.4 pg (27.0-33.0); Mean Corpuscular Volume 88.7 fL (80.0-98.0); Mean Platelet Volume 10.7 fL (9.4-12.4); Monocytes Percent Auto 11.8 % (2-11); Neutrophils Absolute Auto 5.5 x10*3/uL (2.0-8.3); Platelet Count 250 X10*3/uL (160-400); Red Blood Count 4.33 X10*6/uL (4.60-5.80); Red Cell Distribution Width 12.8 % (11.0-16.0); White Blood Count 8.7 X10*3/uL (4.8-10.8)
[2024-06-22 06:01] LABS: Alanine Aminotransferase 45 U/L (0-40); Albumin Level 3.4 g/dL (3.5-5.0); Alkaline Phosphatase 77 U/L (39-117); Anion Gap 15 (12-20); Aspartate Amino Transferase 56 U/L (5-37); Bilirubin Total 0.3 mg/dL (0.0-1.0); Blood Urea Nitrogen 11 mg/dL (9-16); Calcium 8.6 mg/dL (8.4-10.2); Carbon Dioxide 22 mmol/L (22-29); Chloride 104 mmol/L (96-108); Creatinine Clr Calc Pharmacy 134.3; Estimated Glomerular Filt Rate > 60; Glucose Random 138 mg/dL (60-115); Phosphorus 2.7 mg/dL (2.7-4.5); Potassium 3.3 mmol/L (3.3-5.1); Sodium 138 mmol/L (135-145); Total Protein 6.4 g/dL (6.5-8.0)
[2024-06-22] MEDS: Chlorhexidine Gluc Oral Rinse 15 ML MOUTHWASH BUCCAL ×3 (08:22→20:20)
[2024-06-22] MEDS: Famotidine/PF 20 MG/2 ML VIAL IVPUSH (08:22)
[2024-06-22] MEDS: Finasteride 5 MG TABLET PO (08:23)
[2024-06-22] MEDS: busPIRone HCl 5 MG TABLET PO ×2 (08:23→20:24)
[2024-06-22] MEDS: Potassium Chloride Packet 20 MEQ PACKET 40 MEQ PO (08:23)
[2024-06-22] MEDS: Folic Acid 1 MG TABLET PO (08:23)
[2024-06-22] MEDS: chlordiazePOXIDE HCl 25 MG CAPSULE 50 MG PO ×3 (08:23→20:22)
[2024-06-22] MEDS: Multivitamin TABLET 1 TAB PO (08:23)
[2024-06-22] MEDS: Magnesium Oxide 400 MG TABLET PO (08:23)
--- NOTE | 2024-06-22 09:52 | PC.NURSE ---
Addendum entered by Kristyn Fonseca RN 06/22/24 15:42: ?Mccarthy removed with no complications, external catheter in place, due to void @ 2100 Original Note: Assumed care @ 0700? Neuro: Sedated/intubated, on? precedex and propofol gtt? per MAY. Does not open eyes , does not track, does not follow commands, ORTIZ occasionally? (passive ROM performed/reposition maintained).? Cardiac: Sinus Rhythm on tele, on levophed gtt per MAY GI: LBM 06/14 , +bowel sounds,? NG tube in place, tolerating TF with no sign of intolerance , POC q6hrs,? sliding scale insulin per MAY. : Mccarthy in place, patent and draining? Lines: peripheral IVs
--- NOTE | 2024-06-22 10:01 | P.PNCC_ITS ---
Subjective Subjective Date of Service: 06/22/24 Interval History: 63-year-old history alcohol dependence with prior withdrawal, diabetes mellitus and depression anxiety admitted on 06/12/2024 with alcohol intoxication and withdrawal requiring sedative drips and ICU level of monitoring. Delirium tremens improves and patient was transferred to telemetry morrow on 06/15/2024. Further hospital course significant for waxing and waning delirium tremens symptoms with patient being transferred back to intensive care unit on 06/18/2024 for close monitoring and sedative drips. Required intubation 06/21/2024 for high- dose sedative drips. No events overnight. Critical Care Time (minutes): 45 Physical Exam 2 Vital Signs: Vital Signs: Last Vital Signs Temp 99.3 F 06/22/24 09:00 Pulse 59 06/22/24 09:00 Resp 16 06/22/24 09:00 BP 109/65 06/22/24 09:00 Pulse Ox 95 06/22/24 09:00 O2 Del Method Mechanical Ventil ation 06/22/24 09:00 O2 Flow Rate 3 06/21/24 06:00 FiO2 40 06/22/24 09:00 Oxygen Flow Rate 4 06/16/24 12:00 BMI result Body Mass Index 31.7 Const: General: no acute distress and other (Sedated on ventilatory support) Eyes: Sclerae: sclerae normal EOM: EOMs intact bilaterally Neck: Neck: Yes no lymphadenopathy, Yes trachea midline and Yes supple Resp: Auscultation: clear to auscultation bilaterally Cardio: Rate: regular rate Rhythm: regular rhythm Heart sounds: no gallops, no murmurs and no rubs GI: Palpation (GI): Soft to palpation and Other GI palpation findings present ( Nontender) Auscultation: normal bowel sounds Extrem: General: Yes no pedal edema, No clubbing and No cyanosis Objective Data Labs 06/22/24 05:26 06/22/24 05:26 Labs: Laboratory Results - last 24 hr 06/21/24 06/21/24 06/22/24 11:20 17:54 00:08 WBC RBC Hgb Hct MCV MCH MCHC RDW Plt Count MPV Immature Gran % (Auto) Neut % (Auto) Lymph % (Auto) [place] % (Auto) Eos % (Auto) Baso % (Auto) Lymph # (Auto) [place] # (Auto) Eos # (Auto) Baso # (Auto) Abs Immat Gran (auto) Absolute Neuts (auto) Absolute Nucleated RBC Nucleated RBC % (auto) VBG pH VBG pCO2 VBG pO2 VBG HCO3 VBG O2 Saturation VBG Base Excess Sodium Potassium Chloride Carbon Dioxide Anion Gap BUN Creatinine Estim Creat Clear Calc Estimated GFR POC Glucose 95 124 H 123 H Random Glucose Calcium Phosphorus Magnesium Total Bilirubin AST ALT Alkaline Phosphatase Total Protein Albumin 06/22/24 06/22/24 06/22/24 05:10 05:26 05:28 WBC 8.7 RBC 4.33 L Hgb 13.6 L Hct 38.4 L MCV 88.7 MCH 31.4 MCHC 35.4 RDW 12.8 Plt Count 250 D MPV 10.7 Immature Gran % (Auto) 0.2 Neut % (Auto) 63.0 Lymph % (Auto) 20.4 [place] % (Auto) 11.8 H Eos % (Auto) 4.0 Baso % (Auto) 0.6 Lymph # (Auto) 1.8 [place] # (Auto) 1.0 Eos # (Auto) 0.4 Baso # (Auto) 0.1 Abs Immat Gran (auto) 0.02 Absolute Neuts (auto) 5.5 Absolute Nucleated RBC 0.000 Nucleated RBC % (auto) 0.0 VBG pH 7.54 H VBG pCO2 29 VBG pO2 50 VBG HCO3 26 VBG O2 Saturation 86.0 VBG Base Excess 4.4 Sodium 138 Potassium 3.3 D Chloride 104 Carbon Dioxide 22 Anion Gap 15 BUN 11 Creatinine 0.65 Estim Creat Clear Calc 134.3 Estimated GFR > 60 POC Glucose 140 H Random Glucose 138 H Calcium 8.6 Phosphorus 2.7 Magnesium 2.0 Total Bilirubin 0.3 AST 56 H ALT 45 H Alkaline Phosphatase 77 Total Protein 6.4 L Albumin 3.4 L Microbiology Microbiology Results: Microbiology 06/12/24 17:00 Blood - Venous Blood Culture - Final No growth after 5 days. 06/12/24 16:45 Blood - Venous Blood Culture - Final No growth after 5 days. Progress Note: A&P Assessment and plan (1) Delirium tremens: Status: Acute (2) Diabetes: Status: Acute Plan Assessment: 63-year-old gentleman admitted with alcohol intoxication further complicated by delirium tremens requiring sedative drips, now improved Plan: Neuro: Delirium tremens, continue to titrate off sedative nebs. Cardiac: No acute issues. Pulmonary: Required intubation for high-dose sedative drips, continue to titrate off ventilatory support as tolerated. Renal: No acute issues. Endo: No acute issues. Underlying diabetes mellitus continue sliding scale insulin. GI: No acute issues. ID: No acute issues Heme/Onc: No acute issues. Psych: No acute issues. Miscellaneous: No acute issues. Prophylaxis: Lovenox, famotidine Diet: Tube feeds Critical care time spent: 45 minutes Quality Stroke Does the patient have a stroke diagnosis?: No VTE Prior VTE?: No VTE Risk Level:: Medical - low VTE Device Contraindication: N/A - Device Ordered VTE Drug Contraindication: N/A - Med Ordered
[2024-06-22 11:11] LABS: Glucose, Whole Blood 155 mg/dL (60-115)
--- NOTE | 2024-06-22 11:14 | MHC.CLN ---
PT IS INTUBATED AND SEDATED DISCUSSED AT ROUNDS WITH PT RECEIVING PROMOTE AT MAX GOAL RATE 60ML/HR PROVIDES 1440KCALS (2233KCALS TOTAL WITH SEDATION; 26KCALS/KG BASED ON CMW), 90G PROTEIN (1.05G/KG), 1208ML FREE WATER FROM FORMULA RECOMMEND ADDING 240ML FREE WATER FLUSHES Q 6 HRS TO PROVIDE 2168ML TOTAL (FROM FORMULA AND FLUSH; 26ML/KG) MONITOR TOLERANCE AND LYTES SEE ALSO FULL CLINICAL NUTRITION ASSESSMENT
[2024-06-22] MEDS: Insulin Lispro 100 UNIT/ML 3 ML VIAL SUBCUT (12:38)
--- NOTE | 2024-06-22 14:20 | MHC.CM.PN ---
Pt remains on vent support for assistance w/ETOH detox: ability to wean will continually be assessed - pt from home without services: may need assistance w/transportation. CM to follow
[2024-06-22 17:41] LABS: Glucose, Whole Blood 116 mg/dL (60-115)
[2024-06-22] MEDS: Enoxaparin Sodium 40 MG/0.4 ML SYRINGE SUBCUT (18:30)
[2024-06-22] MEDS: Tamsulosin HCL 0.4 MG CAPSULE 0.8 MG PO (20:23)
[2024-06-22] MEDS: Buprenorphine/Naloxone 8/2 mg FILM 2 FILM BUCCAL (20:28)
[2024-06-22] MEDS: dexmedeTOMIDidine HCL/NS 400 MCG/100 ML INFUS..BTL 23.06 MCG IVCONT (21:16)
[2024-06-23] VITALS (38 sets, daily range): BP systolic 78–167; BP diastolic 44–94; PULSE 63–83; RESP 14–20; TEMP 34.7–38; O2SAT 90–94
[2024-06-23 00:07] LABS: Glucose, Whole Blood 138 mg/dL (60-115)
[2024-06-23] MEDS: Acetaminophen 325 MG TABLET 650 MG PO (00:09)
[2024-06-23] MEDS: dexmedeTOMIDidine HCL/NS 400 MCG/100 ML INFUS..BTL 23.06 MCG IVCONT ×6 (00:57→22:09)
[2024-06-23] MEDS: propofoL 1,000 MG/100 ML VIAL 30.03 MG IVCONT ×6 (02:07→21:00)
[2024-06-23 05:51] LABS: VBG Base Excess 3.6 mmol/L; VBG HCO3 25 mmol/L (22-26); VBG pCO2 31 mmHg; VBG pH 7.51 (7.32-7.43); VBG pO2 47 mmHg
[2024-06-23 06:00] LABS: Venous Blood Gas Refer to POC result
[2024-06-23 06:06] LABS: MANUAL DIFF FLAG NO
[2024-06-23 06:07] LABS: Glucose, Whole Blood 164 mg/dL (60-115)
[2024-06-23] MEDS: Insulin Lispro 100 UNIT/ML 3 ML VIAL SUBCUT ×3 (06:08→17:44)
--- NOTE | 2024-06-23 06:14 | PC.NURSE ---
Assumed care at 1900. Patient intubated and sedated, and emerges easily from sedation. Moves all extremities, but does not track or follow commands. Patient agitated when awake, grimacing and reaching for ETT. Non behavioral soft wrist restraints in place. Precedex and propofol gtts running and adjusted per MAY. SR/ST on tele, HR 80s-100s depending on level of sedation. Levophed gtt infusing per MAR for MAP > 65. Patient continues on mechanical ventilation, see vent assessment. Lung sounds clear, diminished bases. Abdomen large, round and soft, NGT to right nare patent and infusing promote TF at goal. Mccarthy removed on previous shift, patient DTV 2100, condom catheter in place. Skin overall warm and intact, blanchable redness to coccyx with pink prophylactic foam in place. Diffuse bruising to extremities. Patient repositioned Q2HR to maintain skin integrity, bed locked in lowest position, bed alarm on.? 2100: Patient still without any urine output. Patient bladder scanned by this RN for 217mL, see I&O. Per protocol, no intervention at this time. Patient due to be bladder?scanned again at 0300.? 0300: Patient bladder scanned for 489mL, straight cath'd?per protocol for 450mL dark yellow urine. Condom catheter replaced, patient due to be scanned again at 0900.?
[2024-06-23 06:18] LABS: Basophils Absolute Auto 0.1 X10*3/uL (0.0-0.2); Basophils Percent Auto 0.6 % (0-2); Eosinophils Absolute Auto 0.3 X10*3/uL (0.0-0.4); Eosinophils Percent Auto 3.7 % (0-4); Hematocrit 40.4 % (42.0-52.0); Imm Gran Abs Auto 0.01 X10*3/uL (0.00-0.03); Imm Gran Pct Auto 0.1 % (0.0-0.4); Lymphocytes Absolute Auto 1.9 X10*3/uL (1.2-4.9); Lymphocytes Percent Auto 21.6 % (20-40); Mean Corpuscular HGB Conc 34.7 g/dl (31.0-36.0); Mean Corpuscular Hemoglobin 31.3 pg (27.0-33.0); Mean Corpuscular Volume 90.2 fL (80.0-98.0); Mean Platelet Volume 11.3 fL (9.4-12.4); Monocytes Absolute Auto 1.1 X10*3/uL (0.1-1.2); Monocytes Percent Auto 12.2 % (2-11); Neutrophils Absolute Auto 5.4 x10*3/uL (2.0-8.3); Neutrophils Percent Auto 61.8 % (45-73); Platelet Count 272 X10*3/uL (160-400); Red Blood Count 4.48 X10*6/uL (4.60-5.80); White Blood Count 8.8 X10*3/uL (4.8-10.8)
[2024-06-23 06:31] LABS: Albumin Level 3.2 g/dL (3.5-5.0); Anion Gap 15 (12-20); Blood Urea Nitrogen 10 mg/dL (9-16); Calcium 8.7 mg/dL (8.4-10.2); Carbon Dioxide 22 mmol/L (22-29); Chloride 106 mmol/L (96-108); Creatinine Clr Calc Pharmacy 136.4; Estimated Glomerular Filt Rate > 60; Glucose Random 164 mg/dL (60-115); Phosphorus 2.5 mg/dL (2.7-4.5); Potassium 4.9 mmol/L (3.3-5.1); Sodium 138 mmol/L (135-145)
[2024-06-23] MEDS: Norepinephrine Bitartrate/D5W 8 MG/250 ML PLAST..BAG 1.88 MG IVCONT (07:44)
[2024-06-23] MEDS: Albumin Human 25 % 100 ML IV ×2 (07:49→13:34)
[2024-06-23] MEDS: Potassium Phosphate/NS 15 MMOL/250 ML PLAST..BAG 62.5 MMOL IV (07:49)
[2024-06-23] MEDS: Magnesium Oxide 400 MG TABLET PO (08:19)
[2024-06-23] MEDS: chlordiazePOXIDE HCl 25 MG CAPSULE 50 MG PO ×3 (08:19→20:07)
[2024-06-23] MEDS: Folic Acid 1 MG TABLET PO (08:19)
[2024-06-23] MEDS: Multivitamin TABLET 1 TAB PO (08:19)
[2024-06-23] MEDS: Chlorhexidine Gluc Oral Rinse 15 ML MOUTHWASH BUCCAL ×3 (08:19→20:06)
[2024-06-23] MEDS: busPIRone HCl 5 MG TABLET PO ×2 (08:19→20:06)
[2024-06-23] MEDS: Finasteride 5 MG TABLET PO (08:48)
[2024-06-23] MEDS: Famotidine/PF 20 MG/2 ML VIAL IVPUSH (09:26)
--- NOTE | 2024-06-23 09:44 | P.PNCC_ITS ---
Subjective Subjective Date of Service: 06/23/24 Interval History: 63-year-old history alcohol dependence with prior withdrawal, diabetes mellitus and depression anxiety admitted on 06/12/2024 with alcohol intoxication and withdrawal requiring sedative drips and ICU level of monitoring. Delirium tremens improves and patient was transferred to telemetry morrow on 06/15/2024. Further hospital course significant for waxing and waning delirium tremens symptoms with patient being transferred back to intensive care unit on 06/18/2024 for close monitoring and sedative drips. Required intubation 06/21/2024 for high- dose sedative drips. No events overnight. Critical Care Time (minutes): 45 Physical Exam 2 Vital Signs: Vital Signs: Last Vital Signs Temp 97.3 F 06/23/24 08:00 Pulse 78 06/23/24 09:00 Resp 18 06/23/24 09:00 BP 103/58 L 06/23/24 09:00 Pulse Ox 93 06/23/24 09:00 O2 Del Method Mechanical Ventil ation 06/23/24 09:00 O2 Flow Rate 3 06/21/24 06:00 FiO2 40 06/23/24 09:00 Oxygen Flow Rate 4 06/16/24 12:00 BMI result Body Mass Index 31.7 Const: General: no acute distress and other (Sedated on vent) Eyes: Sclerae: sclerae normal EOM: EOMs intact bilaterally Neck: Neck: Yes no lymphadenopathy, Yes trachea midline and Yes supple Resp: Auscultation: clear to auscultation bilaterally Cardio: Rate: regular rate Rhythm: regular rhythm Heart sounds: no gallops, no murmurs and no rubs GI: Palpation (GI): Soft to palpation and Other GI palpation findings present ( Nontender) Auscultation: normal bowel sounds Extrem: General: Yes no pedal edema, No clubbing and No cyanosis Objective Data Labs 06/23/24 05:43 06/23/24 05:43 Labs: Laboratory Results - last 24 hr 06/22/24 06/22/24 06/23/24 11:07 17:35 00:01 WBC RBC Hgb Hct MCV MCH MCHC RDW Plt Count MPV Immature Gran % (Auto) Neut % (Auto) Lymph % (Auto) [place] % (Auto) Eos % (Auto) Baso % (Auto) Lymph # (Auto) [place] # (Auto) Eos # (Auto) Baso # (Auto) Abs Immat Gran (auto) Absolute Neuts (auto) Absolute Nucleated RBC Nucleated RBC % (auto) VBG pH VBG pCO2 VBG pO2 VBG HCO3 VBG O2 Saturation VBG Base Excess Sodium Potassium Chloride Carbon Dioxide Anion Gap BUN Creatinine Estim Creat Clear Calc Estimated GFR POC Glucose 155 H 116 H 138 H Random Glucose Calcium Phosphorus Magnesium Albumin 06/23/24 06/23/24 06/23/24 05:43 05:45 06:04 WBC 8.8 RBC 4.48 L Hgb 14.0 Hct 40.4 L MCV 90.2 MCH 31.3 MCHC 34.7 RDW 13.0 Plt Count 272 MPV 11.3 Immature Gran % (Auto) 0.1 Neut % (Auto) 61.8 Lymph % (Auto) 21.6 [place] % (Auto) 12.2 H Eos % (Auto) 3.7 Baso % (Auto) 0.6 Lymph # (Auto) 1.9 [place] # (Auto) 1.1 Eos # (Auto) 0.3 Baso # (Auto) 0.1 Abs Immat Gran (auto) 0.01 Absolute Neuts (auto) 5.4 Absolute Nucleated RBC 0.000 Nucleated RBC % (auto) 0.0 VBG pH 7.51 H VBG pCO2 31 VBG pO2 47 VBG HCO3 25 VBG O2 Saturation 83.0 VBG Base Excess 3.6 Sodium 138 Potassium 4.9 D Chloride 106 Carbon Dioxide 22 Anion Gap 15 BUN 10 Creatinine 0.64 Estim Creat Clear Calc 136.4 Estimated GFR > 60 POC Glucose 164 H Random Glucose 164 H Calcium 8.7 Phosphorus 2.5 L Magnesium 2.0 Albumin 3.2 L Microbiology Microbiology Results: Microbiology 06/12/24 17:00 Blood - Venous Blood Culture - Final No growth after 5 days. 06/12/24 16:45 Blood - Venous Blood Culture - Final No growth after 5 days. Progress Note: A&P Assessment and plan (1) Delirium tremens: Status: Acute (2) Diabetes: Status: Acute Plan Assessment: 63-year-old gentleman admitted with alcohol intoxication further complicated by delirium tremens requiring sedative drips, now improved Plan: Neuro: Delirium tremens, continue to titrate off sedative drips. Cardiac: No acute issues. Pulmonary: Required intubation for high-dose sedative drips, continue to titrate off ventilatory support as tolerated. Renal: No acute issues. Endo: No acute issues. Underlying diabetes mellitus continue sliding scale insulin. GI: No acute issues. ID: No acute issues Heme/Onc: No acute issues. Psych: No acute issues. Miscellaneous: No acute issues. Prophylaxis: Lovenox, famotidine Diet: Tube feeds Critical care time spent: 45 minutes Quality Stroke Does the patient have a stroke diagnosis?: No VTE Prior VTE?: No VTE Risk Level:: Medical - low VTE Device Contraindication: N/A - Device Ordered VTE Drug Contraindication: N/A - Med Ordered
[2024-06-23 11:13] LABS: Glucose, Whole Blood 279 mg/dL (60-115)
--- NOTE | 2024-06-23 16:11 | MHC.CM.PN ---
Pt remains intubated for w/d management: Plan for today includes PSV trials in anticipation of extubation. CM to follow
[2024-06-23] MEDS: Enoxaparin Sodium 40 MG/0.4 ML SYRINGE SUBCUT (17:44)
[2024-06-23 17:47] LABS: Glucose, Whole Blood 194 mg/dL (60-115)
--- NOTE | 2024-06-23 18:11 | PC.NURSE ---
Assumed care at 0700 - remains intubated and sedated. Failed sedation vacation - intermittent agitation/restlessness, difficult to redirect. Tolerating PSV 5/5 40%. Failed voiding trailed - cooper placed at 1500. Family at bedside and updated by this RN.
[2024-06-23] MEDS: Tamsulosin HCL 0.4 MG CAPSULE 0.8 MG PO (20:06)
[2024-06-23] MEDS: Buprenorphine/Naloxone 8/2 mg FILM 2 FILM BUCCAL (20:07)
[2024-06-23 23:57] LABS: Glucose, Whole Blood 210 mg/dL (60-115)
[2024-06-24] VITALS (58 sets, daily range): BP systolic 79–149; BP diastolic 36–83; PULSE 57–107; RESP 13–19; TEMP 34.8–38.7; O2SAT 88–98
[2024-06-24] MEDS: Insulin Lispro 100 UNIT/ML 3 ML VIAL SUBCUT ×5 (00:06→23:19)
[2024-06-24] MEDS: propofoL 1,000 MG/100 ML VIAL 30.03 MG IVCONT ×3 (00:07→05:56)
[2024-06-24] MEDS: dexmedeTOMIDidine HCL/NS 400 MCG/100 ML INFUS..BTL 23.06 MCG IVCONT (02:41)
[2024-06-24 05:43] LABS: VBG Base Excess 3.7 mmol/L; VBG HCO3 26 mmol/L (22-26); VBG pCO2 35 mmHg; VBG pH 7.48 (7.32-7.43); VBG pO2 53 mmHg
[2024-06-24 05:46] LABS: MANUAL DIFF FLAG NO
[2024-06-24 05:53] LABS: Basophils Absolute Auto 0.1 X10*3/uL (0.0-0.2); Basophils Percent Auto 0.6 % (0-2); Eosinophils Absolute Auto 0.4 X10*3/uL (0.0-0.4); Eosinophils Percent Auto 4.9 % (0-4); Hematocrit 40.2 % (42.0-52.0); Imm Gran Abs Auto 0.02 X10*3/uL (0.00-0.03); Imm Gran Pct Auto 0.2 % (0.0-0.4); Lymphocytes Absolute Auto 1.7 X10*3/uL (1.2-4.9); Lymphocytes Percent Auto 19.2 % (20-40); Mean Corpuscular HGB Conc 34.8 g/dl (31.0-36.0); Mean Corpuscular Volume 88.9 fL (80.0-98.0); Mean Platelet Volume 10.9 fL (9.4-12.4); Monocytes Absolute Auto 1.2 X10*3/uL (0.1-1.2); Monocytes Percent Auto 12.8 % (2-11); Neutrophils Absolute Auto 5.6 x10*3/uL (2.0-8.3); Neutrophils Percent Auto 62.3 % (45-73); Platelet Count 309 X10*3/uL (160-400); Red Blood Count 4.52 X10*6/uL (4.60-5.80)
[2024-06-24 05:57] LABS: Glucose, Whole Blood 223 mg/dL (60-115)
[2024-06-24 06:02] LABS: Albumin Level 3.6 g/dL (3.5-5.0); Anion Gap 14 (12-20); Blood Urea Nitrogen 9 mg/dL (9-16); Calcium 9.1 mg/dL (8.4-10.2); Carbon Dioxide 24 mmol/L (22-29); Chloride 105 mmol/L (96-108); Creatinine Clr Calc Pharmacy 130.3; Estimated Glomerular Filt Rate > 60; Glucose Random 254 mg/dL (60-115); Phosphorus 2.6 mg/dL (2.7-4.5); Sodium 139 mmol/L (135-145)
[2024-06-24 06:08] LABS: Venous Blood Gas Refer to POC result
--- NOTE | 2024-06-24 06:26 | PC.NURSE ---
Assumed care at 1900. Patient continues on ventilator support. Well sedated, propofol and precedex gtts running per MAY. Levophed gtt?for BP support continues. Patient tolerating PSV, see vent assessment. Mccarthy catheter in place due to failed voiding trial, draining clear yellow/green urine, approx 30-100mL/hr. Skin warm dry and intact, diffuse bruising and blanchable redness to buttocks, pink foam in place. Patient repositioned Q2HR, bed locked in lowest position, bed alarm on.? Approx 0400: Patient vent?alarming for apneic episodes, RT called. Vent settings switched?to ACVC with good effect, [employer] Maxine notified.?
[2024-06-24] MEDS: dexmedeTOMIDidine HCL/NS 400 MCG/100 ML INFUS..BTL 22.52 MCG IVCONT (07:12)
[2024-06-24] MEDS: Potassium Phosphate/NS 15 MMOL/250 ML PLAST..BAG 62.5 MMOL IV (07:25)
[2024-06-24] MEDS: Norepinephrine Bitartrate/D5W 8 MG/250 ML PLAST..BAG 9.38 MG IVCONT ×2 (07:35→19:43)
[2024-06-24] MEDS: Famotidine/PF 20 MG/2 ML VIAL IVPUSH (07:56)
[2024-06-24] MEDS: Chlorhexidine Gluc Oral Rinse 15 ML MOUTHWASH BUCCAL ×3 (07:56→20:41)
[2024-06-24] MEDS: Folic Acid 1 MG TABLET PO (08:00)
[2024-06-24] MEDS: Magnesium Oxide 400 MG TABLET PO (08:00)
[2024-06-24] MEDS: Multivitamin TABLET 1 TAB PO (08:00)
[2024-06-24] MEDS: chlordiazePOXIDE HCl 25 MG CAPSULE 50 MG PO (08:00)
[2024-06-24] MEDS: busPIRone HCl 5 MG TABLET PO ×2 (08:00→20:40)
--- NOTE | 2024-06-24 10:03 | P.PNCC_ITS ---
Subjective Subjective Date of Service: 06/24/24 Interval History: 63-year-old history alcohol dependence with prior withdrawal, diabetes mellitus and depression anxiety admitted on 06/12/2024 with alcohol intoxication and withdrawal requiring sedative drips and ICU level of monitoring. Delirium tremens improves and patient was transferred to telemetry morrow on 06/15/2024. Further hospital course significant for waxing and waning delirium tremens symptoms with patient being transferred back to intensive care unit on 06/18/2024 for close monitoring and sedative drips. Required intubation 06/21/2024 for high- dose sedative drips. No events overnight. Critical Care Time (minutes): 45 Physical Exam 2 Vital Signs: Vital Signs: Last Vital Signs Temp 99.7 F 06/24/24 09:00 Pulse 60 06/24/24 09:00 Resp 18 06/24/24 09:00 BP 129/70 06/24/24 09:00 Pulse Ox 97 06/24/24 09:00 O2 Del Method Mechanical Ventil ation 06/24/24 09:00 O2 Flow Rate 3 06/21/24 06:00 FiO2 30 06/24/24 09:54 Oxygen Flow Rate 4 06/16/24 12:00 BMI result Body Mass Index 31.7 Const: General: no acute distress and other (Sedated on ventilatory support) Eyes: Sclerae: sclerae normal EOM: EOMs intact bilaterally Neck: Neck: Yes no lymphadenopathy, Yes trachea midline and Yes supple Resp: Auscultation: clear to auscultation bilaterally Cardio: Rate: regular rate Rhythm: regular rhythm Heart sounds: no gallops, no murmurs and no rubs GI: Palpation (GI): Soft to palpation and Other GI palpation findings present ( Nontender) Auscultation: normal bowel sounds Extrem: General: Yes no pedal edema, No clubbing and No cyanosis Objective Data Labs 06/24/24 05:34 06/24/24 05:34 Labs: Laboratory Results - last 24 hr 06/23/24 06/23/24 06/23/24 11:09 17:42 23:46 WBC RBC Hgb Hct MCV MCH MCHC RDW Plt Count MPV Immature Gran % (Auto) Neut % (Auto) Lymph % (Auto) [place] % (Auto) Eos % (Auto) Baso % (Auto) Lymph # (Auto) [place] # (Auto) Eos # (Auto) Baso # (Auto) Abs Immat Gran (auto) Absolute Neuts (auto) Absolute Nucleated RBC Nucleated RBC % (auto) VBG pH VBG pCO2 VBG pO2 VBG HCO3 VBG O2 Saturation VBG Base Excess Sodium Potassium Chloride Carbon Dioxide Anion Gap BUN Creatinine Estim Creat Clear Calc Estimated GFR POC Glucose 279 H 194 H 210 H Random Glucose Calcium Phosphorus Magnesium Albumin 06/24/24 06/24/24 06/24/24 05:34 05:39 05:48 WBC 9.0 RBC 4.52 L Hgb 14.0 Hct 40.2 L MCV 88.9 MCH 31.0 MCHC 34.8 RDW 13.0 Plt Count 309 MPV 10.9 Immature Gran % (Auto) 0.2 Neut % (Auto) 62.3 Lymph % (Auto) 19.2 L [place] % (Auto) 12.8 H Eos % (Auto) 4.9 H Baso % (Auto) 0.6 Lymph # (Auto) 1.7 [place] # (Auto) 1.2 Eos # (Auto) 0.4 Baso # (Auto) 0.1 Abs Immat Gran (auto) 0.02 Absolute Neuts (auto) 5.6 Absolute Nucleated RBC 0.000 Nucleated RBC % (auto) 0.0 VBG pH 7.48 H VBG pCO2 35 VBG pO2 53 VBG HCO3 26 VBG O2 Saturation 87.0 VBG Base Excess 3.7 Sodium 139 Potassium 4.0 Chloride 105 Carbon Dioxide 24 Anion Gap 14 BUN 9 Creatinine 0.67 Estim Creat Clear Calc 130.3 Estimated GFR > 60 POC Glucose 223 H Random Glucose 254 H Calcium 9.1 Phosphorus 2.6 L Magnesium 2.0 Albumin 3.6 Microbiology Microbiology Results: Microbiology 06/12/24 17:00 Blood - Venous Blood Culture - Final No growth after 5 days. 06/12/24 16:45 Blood - Venous Blood Culture - Final No growth after 5 days. Progress Note: A&P Assessment and plan (1) Delirium tremens: Status: Acute (2) Diabetes: Status: Acute Plan Assessment: 63-year-old gentleman admitted with alcohol intoxication further complicated by delirium tremens requiring sedative drips, now improved Plan: Neuro: Delirium tremens, continue to titrate off sedative drips. Cardiac: No acute issues. Pulmonary: Required intubation for high-dose sedative drips, continue to titrate off ventilatory support as tolerated. Renal: No acute issues. Endo: No acute issues. Underlying diabetes mellitus continue sliding scale insulin. GI: No acute issues. ID: No acute issues Heme/Onc: No acute issues. Psych: No acute issues. Miscellaneous: No acute issues. Prophylaxis: Lovenox, famotidine Diet: Tube feeds Critical care time spent: 45 minutes Quality Stroke Does the patient have a stroke diagnosis?: No VTE Prior VTE?: No VTE Risk Level:: Medical - low VTE Device Contraindication: N/A - Device Ordered VTE Drug Contraindication: N/A - Med Ordered
--- NOTE | 2024-06-24 10:27 | MHC.CLN ---
F/U PT REMAINS INTUBATED AND SEDATED DISCUSSED AT ROUNDS WITH PT RECEIVING PROMOTE AT MAX GOAL RATE 60ML/HR PROVIDES 1440KCALS (2233KCALS TOTAL WITH SEDATION; 26KCALS/KG BASED ON CMW), 90G PROTEIN (1.05G/KG), 1208ML FREE WATER FROM FORMULA CONTINUE TO MONITOR TOLERANCE AND LYTES
[2024-06-24 11:29] LABS: Glucose, Whole Blood 274 mg/dL (60-115)
[2024-06-24] MEDS: Acetaminophen 325 MG TABLET 650 MG PO (13:10)
[2024-06-24] MEDS: dexmedeTOMIDine HCL/NS 400 MCG/100 ML PLAST..BAG 22.52 MCG IVCONT ×4 (13:27→23:44)
[2024-06-24] MEDS: propofoL 1,000 MG/100 ML VIAL 18.02 MG IVCONT ×2 (14:04→17:25)
[2024-06-24 17:17] LABS: Glucose, Whole Blood 218 mg/dL (60-115)
[2024-06-24] MEDS: Enoxaparin Sodium 40 MG/0.4 ML SYRINGE SUBCUT (17:21)
--- NOTE | 2024-06-24 17:50 | PC.NURSE ---
Assumed care at 0700. Pt remains intubated and sedated. Sedation vacation initiated at 0930. At 1000, pt placed on PSV 0/5 at fio2 30%. Precedex restarted at approx 1340 due to restlessness, agitation, fatigue. RT set vent to acvc; see vent assessments for details. Approx 1300 pt temp elevated to 101.7 ice packs and acetaminophen administered. Temp lowered. At end of shift, pt remains ventilated on sedative drips. Pt repositioned q2hr. See assessments, MAR for details.
[2024-06-24] MEDS: Buprenorphine/Naloxone 8/2 mg FILM 2 FILM BUCCAL (20:40)
[2024-06-24] MEDS: propofoL 1,000 MG/100 ML VIAL 24.02 MG IVCONT (20:42)
[2024-06-24] MEDS: Tamsulosin HCL 0.4 MG CAPSULE 0.8 MG PO (20:42)
[2024-06-24 23:21] LABS: Glucose, Whole Blood 246 mg/dL (60-115)
[2024-06-25] VITALS (43 sets, daily range): BP systolic 93–155; BP diastolic 44–97; PULSE 60–150; RESP 15–30; TEMP 34.9–40; O2SAT 82–99; BMI 31.7
[2024-06-25] MEDS: propofoL 1,000 MG/100 ML VIAL 24.02 MG IVCONT ×3 (00:06→08:05)
[2024-06-25] MEDS: Acetaminophen 325 MG TABLET 650 MG PO (00:40)
[2024-06-25] MEDS: dexmedeTOMIDine HCL/NS 400 MCG/100 ML PLAST..BAG 22.52 MCG IVCONT ×2 (04:00→08:07)
[2024-06-25 05:56] LABS: Basophils Absolute Auto 0.1 X10*3/uL (0.0-0.2); Basophils Percent Auto 0.7 % (0-2); Eosinophils Absolute Auto 0.4 X10*3/uL (0.0-0.4); Eosinophils Percent Auto 3.6 % (0-4); Hematocrit 40.5 % (42.0-52.0); Hemoglobin 14.2 g/dl (14.0-18.0); Imm Gran Abs Auto 0.04 X10*3/uL (0.00-0.03); Imm Gran Pct Auto 0.4 % (0.0-0.4); Lymphocytes Absolute Auto 1.9 X10*3/uL (1.2-4.9); Lymphocytes Percent Auto 18.2 % (20-40); Mean Corpuscular HGB Conc 35.1 g/dl (31.0-36.0); Mean Corpuscular Hemoglobin 31.3 pg (27.0-33.0); Mean Corpuscular Volume 89.2 fL (80.0-98.0); Mean Platelet Volume 11.2 fL (9.4-12.4); Monocytes Percent Auto 9.9 % (2-11); Neutrophils Percent Auto 67.2 % (45-73); Red Blood Count 4.54 X10*6/uL (4.60-5.80); Red Cell Distribution Width 13.1 % (11.0-16.0)
[2024-06-25 06:00] LABS: Platelet Count 332 X10*3/uL (160-400); White Blood Count 10.4 X10*3/uL (4.8-10.8)
[2024-06-25 06:10] LABS: Albumin Level 3.6 g/dL (3.5-5.0); Anion Gap 16 (12-20); Blood Urea Nitrogen 9 mg/dL (9-16); Calcium 9.2 mg/dL (8.4-10.2); Carbon Dioxide 23 mmol/L (22-29); Chloride 104 mmol/L (96-108); Creatinine Clr Calc Pharmacy 130.3; Estimated Glomerular Filt Rate > 60; Glucose Random 256 mg/dL (60-115); Phosphorus 3.4 mg/dL (2.7-4.5); Potassium 4.8 mmol/L (3.3-5.1); Sodium 138 mmol/L (135-145)
[2024-06-25] MEDS: Insulin Lispro 100 UNIT/ML 3 ML VIAL SUBCUT ×3 (06:17→23:33)
[2024-06-25 06:21] LABS: VBG Base Excess 3.9 mmol/L; VBG HCO3 25 mmol/L (22-26); VBG pCO2 31 mmHg; VBG pH 7.52 (7.32-7.43); VBG pO2 48 mmHg
[2024-06-25 06:21] LABS: Glucose, Whole Blood 280 mg/dL (60-115)
--- NOTE | 2024-06-25 06:33 | PC.NURSE ---
CARE ASSUMED 7PM...REMAINS INTUBATED...VCV VENT SUPPORT...PROPOFOL 40 MCG/KG/MIN AND PRECIDEX 0.9 MCG/KG/HR...SEDATE...PERIODS OF TRANSIENT VENT DYSYNCHRONY AND ORTIZ BUT NOT TO COMMAND...LEVOPHED DRIP PER MAY...T-MAX 101.1 CORE VIA WARD..TYLENOL 650MG VIA NG-TUBE...TEMP 100.4 THIS AM...TUBE FEEDS 60 CC/HR...WARD 40-75 CC/HR...Q6H POC GLUCOSES COVERED WITH SLIDING SCALE COVERAGE PER MAR..AM VBG REVIEWED BY PROVIDER...TV DECREASED FROM 440CC TO 400CC
[2024-06-25] MEDS: Magnesium Oxide 400 MG TABLET PO (08:04)
[2024-06-25] MEDS: Famotidine/PF 20 MG/2 ML VIAL IVPUSH (08:04)
[2024-06-25] MEDS: Multivitamin TABLET 1 TAB PO (08:04)
[2024-06-25] MEDS: Folic Acid 1 MG TABLET PO (08:04)
[2024-06-25] MEDS: busPIRone HCl 5 MG TABLET PO (08:04)
[2024-06-25] MEDS: Chlorhexidine Gluc Oral Rinse 15 ML MOUTHWASH BUCCAL (08:05)
[2024-06-25 08:15] LABS: Venous Blood Gas Refer to POC result
[2024-06-25 08:19] LABS: VBG Base Excess 5.9 mmol/L; VBG HCO3 33 mmol/L (22-26); VBG pCO2 56 mmHg; VBG pH 7.37 (7.32-7.43); VBG pO2 54 mmHg
--- NOTE | 2024-06-25 09:46 | PM.CCPN ---
Subjective Subjective Date of Service: 06/25/24 Interval History: 63-year-old history alcohol dependence with prior withdrawal, diabetes mellitus and depression anxiety admitted on 06/12/2024 with alcohol intoxication and withdrawal requiring sedative drips and ICU level of monitoring. Delirium tremens improves and patient was transferred to telemetry morrow on 06/15/2024. Further hospital course significant for waxing and waning delirium tremens symptoms with patient being transferred back to intensive care unit on 06/18/2024 for close monitoring and sedative drips. Required intubation 06/21/2024 for high-dose sedative drips. No events overnight. Now with improving tolerance of pressor support trials. Critical Care Time (minutes): 45 Physical Exam Vital Signs: Vital Signs: Last Vital Signs Temp 100.4 F 06/25/24 09:00 Pulse 75 06/25/24 09:46 Resp 19 06/25/24 09:00 BP 131/77 06/25/24 09:46 Pulse Ox 94 06/25/24 09:00 O2 Del Method Mechanical Ventil ation 06/25/24 09:00 O2 Flow Rate 50 06/25/24 09:00 FiO2 40 06/25/24 09:00 Oxygen Flow Rate 4 06/16/24 12:00 BMI result Body Mass Index 31.7 Const: General: no acute distress and other (Sedated on ventilatory support) Eyes: Sclerae: sclerae normal EOM: EOMs intact bilaterally Neck: Neck: Yes no lymphadenopathy, Yes trachea midline and Yes supple Resp: Auscultation: crackles (Mild bilateral) Cardio: Rate: regular rate Rhythm: regular rhythm Heart sounds: no gallops, no murmurs and no rubs GI: Palpation (GI): Soft to palpation and Other GI palpation findings present ( Nontender) Auscultation: normal bowel sounds Extrem: General: Yes no pedal edema, No clubbing and No cyanosis Objective Data Labs 06/25/24 05:33 06/25/24 05:33 Labs: Laboratory Results - last 24 hr 06/24/24 06/24/24 06/24/24 11:18 17:14 23:14 WBC RBC Hgb Hct MCV MCH MCHC RDW Plt Count MPV Immature Gran % (Auto) Neut % (Auto) Lymph % (Auto) [place] % (Auto) Eos % (Auto) Baso % (Auto) Lymph # (Auto) [place] # (Auto) Eos # (Auto) Baso # (Auto) Abs Immat Gran (auto) Absolute Neuts (auto) Absolute Nucleated RBC Nucleated RBC % (auto) VBG pH VBG pCO2 VBG pO2 VBG HCO3 VBG O2 Saturation VBG Base Excess Sodium Potassium Chloride Carbon Dioxide Anion Gap BUN Creatinine Estim Creat Clear Calc Estimated GFR POC Glucose 274 H 218 H 246 H Random Glucose Calcium Phosphorus Magnesium Albumin 06/25/24 06/25/24 06/25/24 05:33 05:39 06:14 WBC 10.4 RBC 4.54 L Hgb 14.2 Hct 40.5 L MCV 89.2 MCH 31.3 MCHC 35.1 RDW 13.1 Plt Count 332 MPV 11.2 Immature Gran % (Auto) 0.4 Neut % (Auto) 67.2 Lymph % (Auto) 18.2 L [place] % (Auto) 9.9 Eos % (Auto) 3.6 Baso % (Auto) 0.7 Lymph # (Auto) 1.9 [place] # (Auto) 1.0 Eos # (Auto) 0.4 Baso # (Auto) 0.1 Abs Immat Gran (auto) 0.04 H Absolute Neuts (auto) 7.0 Absolute Nucleated RBC 0.000 Nucleated RBC % (auto) 0.0 VBG pH 7.52 H VBG pCO2 31 VBG pO2 48 VBG HCO3 25 VBG O2 Saturation 85.0 VBG Base Excess 3.9 Sodium 138 Potassium 4.8 Chloride 104 Carbon Dioxide 23 Anion Gap 16 BUN 9 Creatinine 0.67 Estim Creat Clear Calc 130.3 Estimated GFR > 60 POC Glucose 280 H Random Glucose 256 H Calcium 9.2 Phosphorus 3.4 Magnesium 2.0 Albumin 3.6 06/25/24 08:14 WBC RBC Hgb Hct MCV MCH MCHC RDW Plt Count MPV Immature Gran % (Auto) Neut % (Auto) Lymph % (Auto) [place] % (Auto) Eos % (Auto) Baso % (Auto) Lymph # (Auto) [place] # (Auto) Eos # (Auto) Baso # (Auto) Abs Immat Gran (auto) Absolute Neuts (auto) Absolute Nucleated RBC Nucleated RBC % (auto) VBG pH 7.37 VBG pCO2 56 VBG pO2 54 VBG HCO3 33 H VBG O2 Saturation 79.0 VBG Base Excess 5.9 Sodium Potassium Chloride Carbon Dioxide Anion Gap BUN Creatinine Estim Creat Clear Calc Estimated GFR POC Glucose Random Glucose Calcium Phosphorus Magnesium Albumin Microbiology Microbiology Results: Microbiology 06/12/24 17:00 Blood - Venous Blood Culture - Final No growth after 5 days. 06/12/24 16:45 Blood - Venous Blood Culture - Final No growth after 5 days. Progress Note: A&P Assessment and plan (1) Delirium tremens: Status: Acute (2) Diabetes: Status: Acute Plan Assessment: 63-year-old gentleman admitted with alcohol intoxication further complicated by delirium tremens requiring sedative drips, now improved Plan: Neuro: Delirium tremens, continue to titrate off sedative drips. Cardiac: No acute issues. Pulmonary: Required intubation for high-dose sedative drips, continue to titrate off ventilatory support as tolerated. Now with improving tolerance of pressor support trials. Renal: No acute issues. Endo: No acute issues. Underlying diabetes mellitus continue sliding scale insulin. GI: No acute issues. ID: No acute issues Heme/Onc: No acute issues. Psych: No acute issues. Miscellaneous: No acute issues. Prophylaxis: Lovenox, famotidine Diet: Tube feeds Critical care time spent: 45 minutes Quality Stroke Does the patient have a stroke diagnosis?: No VTE Prior VTE?: No VTE Risk Level:: Medical - low VTE Device Contraindication: N/A - Device Ordered VTE Drug Contraindication: N/A - Med Ordered
--- NOTE | 2024-06-25 10:57 | PC.NURSE ---
Addendum entered by Jesse Howell RN 06/25/24 18:05: pt bladder scanned and str cath'ed around 1800. pt was unable to void Addendum entered by Jesse Howell RN 06/25/24 15:38: Total dose of IVP Propofol administered by MD: 100mg Addendum entered by Jesse Howell RN 06/25/24 15:35: pt woke up, confused, restless, punching sitter. md informed. administered IVP propofol Addendum entered by Jesse Howell RN 06/25/24 14:48: pt's became restless and more confused, attempting to get out of bed. HR sustained 170-180s, diaphoretic. informed. administered IVP prop Addendum entered by Jesse Howell RN 06/25/24 11:21: informed of increase in temp, 103.3 Original Note: pt extubated and required frequent oral suctioning. post extubation, pt exhibited an increase in HR up to 140s, temp to 102 and body tremors. was informed and assessed pt at bedside. pt was placed on oxymask up to 13L to maintain an O2 sat of > 90%.
[2024-06-25 11:27] LABS: Glucose, Whole Blood 226 mg/dL (60-115)
[2024-06-25] MEDS: Acetaminophen 1,000 MG/100 ML PIGGYBACK 400 MG IV (11:35)
[2024-06-25] MEDS: dexmedeTOMIDine HCL/NS 400 MCG/100 ML PLAST..BAG 30.03 MCG IVCONT (12:04)
--- NOTE | 2024-06-25 12:30 | MHC.CM.PN ---
Pt making some clinical progress on PSV trials: remains sedated: Pt will need CARE team consult and PT assessment once medically stable. CM to follow
[2024-06-25] MEDS: propofoL 200 MG/20 ML VIAL 100 MG IVPUSH ×2 (14:49→20:28)
[2024-06-25] MEDS: dexmedeTOMIDine HCL/NS 400 MCG/100 ML PLAST..BAG 37.54 MCG IVCONT ×2 (15:30→21:33)
[2024-06-25] MEDS: PHENobarbitaL sodium 130 MG/ML IM ONCE 350 MG IM (16:10)
[2024-06-25] MEDS: Enoxaparin Sodium 40 MG/0.4 ML SYRINGE SUBCUT (17:31)
[2024-06-25] MEDS: ondansetron HCL 4 MG/2 ML VIAL IVPUSH (18:41)
[2024-06-25] MEDS: PHENobarbitaL sodium 130 MG/ML VIAL IM Q3Hx2 263 MG IM ×2 (18:58→23:13)
[2024-06-25] MEDS: propofoL 1,000 MG/100 ML VIAL 30.03 MG IVCONT ×2 (19:00→21:36)
[2024-06-25 19:12] LABS: Glucose, Whole Blood 167 mg/dL (60-115)
[2024-06-25] MEDS: Midazolam HCl 2 MG/2 ML VIAL 4 MG IVPUSH ×2 (19:25→19:35)
[2024-06-25 20:06] LABS: VBG Base Excess 2.8 mmol/L; VBG HCO3 28 mmol/L (22-26); VBG pCO2 47 mmHg; VBG pH 7.38 (7.32-7.43); VBG pO2 35 mmHg
--- NOTE | 2024-06-25 20:15 | W.PM.CCHP ---
Procedures Date of Service Date of Service: 06/25/24 <Kareen Goodman NP - Last Filed: 06/25/24 20:17> 06/26/24 <Herber Alvarado MD - Last Filed: 06/26/24 10:26> Intubation Intubation Comments: Patient with severe agitation refractory to maximum dose of Precedex drip and multiple doses of push dose sedatives requiring intubation for airway protection with deep sedation. Emergently intubated with 7.5 cuffed ET tube with GlideScope visualization and no immediate complications.? X-ray for ET tube position confirmed? <Kareen Goodman NP - Last Filed: 06/25/24 20:17> Consent for Procedure: Emergent-no informed consent obtained <Kareen Goodman NP - Last Filed: 06/25/24 20:17> Time out performed: Yes <Kareen Goodman NP - Last Filed: 06/25/24 20:17> Sedative: propofol <Kareen Goodman NP - Last Filed: 06/25/24 20:17> Mg given: 100 <Kareen Goodman NP - Last Filed: 06/25/24 20:17> Laryngoscope: fiber optic video scope <Kareen Goodman NP - Last Filed: 06/25/24 20:17> ET tube size: 7.5 <Kareen Goodman NP - Last Filed: 06/25/24 20:17> ET tube uncuffed: No <Kareen Goodman NP - Last Filed: 06/25/24 20:17> Tube secured depth (cm): 26 <Kareen Goodman NP - Last Filed: 06/25/24 20:17> Tube secured location: lips <Kareen Goodman NP - Last Filed: 06/25/24 20:17> Tube placement confirmation: visualized tube passing through cords, equal breath sounds bilaterally, no breath sounds over epigastrium and confirmation by capnometry <Kareen Goodman NP - Last Filed: 06/25/24 20:17> Patient tolerated procedure: well and no complications <Kareen Goodman NP - Last Filed: 06/25/24 20:17> Intubation complications: none <Kareen Goodman H[employer] V[employer]AGE ELECTRICIAN - Last Filed: 06/25/24 20:17>
[2024-06-25 20:16] LABS: MANUAL DIFF FLAG NO
[2024-06-25 20:18] LABS: Basophils Absolute Auto 0.1 X10*3/uL (0.0-0.2); Basophils Percent Auto 0.6 % (0-2); Eosinophils Percent Auto 0.2 % (0-4); Hematocrit 41.3 % (42.0-52.0); Hemoglobin 14.4 g/dl (14.0-18.0); Imm Gran Abs Auto 0.08 X10*3/uL (0.00-0.03); Imm Gran Pct Auto 0.4 % (0.0-0.4); Lymphocytes Absolute Auto 1.8 X10*3/uL (1.2-4.9); Lymphocytes Percent Auto 9.9 % (20-40); Mean Corpuscular HGB Conc 34.9 g/dl (31.0-36.0); Mean Corpuscular Hemoglobin 31.3 pg (27.0-33.0); Mean Corpuscular Volume 89.8 fL (80.0-98.0); Mean Platelet Volume 11.1 fL (9.4-12.4); Monocytes Percent Auto 5.8 % (2-11); Neutrophils Absolute Auto 14.8 x10*3/uL (2.0-8.3); Neutrophils Percent Auto 83.1 % (45-73); Platelet Count 380 X10*3/uL (160-400); White Blood Count 17.8 X10*3/uL (4.8-10.8)
[2024-06-25] MEDS: fentaNYL citrate/PF 100 MCG/2 ML VIAL IVPUSH (20:31)
[2024-06-25 20:32] LABS: Lactic Acid 1.9 mmol/L (0.5-2.0)
[2024-06-25] MEDS: Norepinephrine Bitartrate/D5W 8 MG/250 ML PLAST..BAG 16.89 MG IVCONT (20:36)
[2024-06-25] MEDS: Ampicillin Sodium/Sulbactam Na 3 GM in 0.9 % Sodium Chloride 100 ML IV (21:25)
[2024-06-25 21:28] LABS: Anion Gap 20 (12-20); Blood Urea Nitrogen 17 mg/dL (9-16); Calcium 9.5 mg/dL (8.4-10.2); Carbon Dioxide 21 mmol/L (22-29); Chloride 105 mmol/L (96-108); Estimated Glomerular Filt Rate > 60; Glucose Random 242 mg/dL (60-115); Potassium 6.5 mmol/L (3.3-5.1); Sodium 139 mmol/L (135-145)
--- NOTE | 2024-06-25 21:38 | PM.EVENT ---
Documented by User: Kareen Goodman NP 06/25/24 21:40 Event Note Date of Service: 06/25/24 Event Note: Patient requiring emergent intubation for airway protection due to agitation/delirium. Hypotension is related to sedation. Patient likely had aspiration event, No evidence of septic lactic is negative. We will start Unasyn. Time Spent With Patient Time: Total time managing care of this patient today ____ minutes. Documented by User: Herber Alvarado MD 06/26/24 10:26 Event Note Date of Service: 06/26/24
[2024-06-25 22:22] LABS: Anion Gap 17 (12-20); Blood Urea Nitrogen 15 mg/dL (9-16); Calcium 9.7 mg/dL (8.4-10.2); Carbon Dioxide 24 mmol/L (22-29); Chloride 103 mmol/L (96-108); Estimated Glomerular Filt Rate > 60; Glucose Random 259 mg/dL (60-115); Potassium 5.9 mmol/L (3.3-5.1); Sodium 138 mmol/L (135-145)
[2024-06-25] MEDS: Sodium Zirconium Cyclosilicate 10 GM POWD.PACK PO (23:13)
[2024-06-25 23:30] LABS: Glucose, Whole Blood 232 mg/dL (60-115)
[2024-06-26] VITALS (47 sets, daily range): BP systolic 96–160; BP diastolic 46–87; PULSE 53–88; RESP 15–23; TEMP 34.7–37.5; O2SAT 90–99; BMI 34.7
[2024-06-26 00:11] LABS: Venous Blood Gas Refer to POC result
[2024-06-26] MEDS: dexmedeTOMIDine HCL/NS 400 MCG/100 ML PLAST..BAG 27.53 MCG IVCONT (00:14)
[2024-06-26] MEDS: propofoL 1,000 MG/100 ML VIAL 30.03 MG IVCONT (00:17)
--- NOTE | 2024-06-26 01:40 | PC.NURSE ---
Addendum entered by Uriah Brice RN 06/26/24 04:41: PER SHIFT REPORT PATIENT STRAIGHT CATH'D APPROX 6PM.....BLADDER SCANNED 04:10 >402ML...STRAIGHT CATH'D PER PROVIDER FOR 450ML KERRIE URINE Addendum entered by Uriah Brice RN 06/26/24 03:14: PER SHIFT REPORT T-MAX DAYSHIFT 104.0...ORAL TEMPPOST-INTUBATION 99.9...ESOPHAGEAL TEMP PROBE PLACE AND TEMP= 100.4...PROVIDER ORDERED UNASYN 3 GRAMS..INFUSED W/O INCIDENT..CURRENT TEMP = 98.8-99.0 Original Note: CARE ASSUMED 7PM...PREVIOUSLY EXTUBATED PER SHIFT REPORT..AWAKE..AGITATED/RESTLESS...ORIENTED TO PERSON ONLY....PULLING ON LINES/ATTEMPTING TO CLIMB OOB...SINUS TACH HR 140'S-150'S..PHENOBARBITOL IM PER [facility] W/O EFFECT ON AGITATION .MARKEDLY DIAPHORETIC...HARSH PRODUCTIVE COUGH RAISING CREAM SECRETIONS...OXIMYZER MASK 15 L/M...SAO2 86-88%..RT PRESENT..CHANGED TO 100% NRB MASK WITH SAO2 90-91%...MOVED FROM ROOM 259-1 TO 253-1 FOR PLANNED INTUBATION...PROVIDER AT BEDSIDE..DECISION TO RE-INTUBATED....VERSED 4MG IV X2 DOSES AND PROPOFOL 100MG IV PUSH GIVEN..INTUBATED 7.5 ETT AT 25 CM....ACVC VENT SETTINGS...INITIALLY RATE 16/TV 400/FIO2 80%/PEEP 8CM....PROPOFOL DRIP STARTED 50 MCG/KG/MIN PER PROVIDER FOR AGITATION/VENT DYSYNCHRONY...FENTANYL 100 MCG IV X1....PRECIDEX DRIP RESUMED PER PROVIDER AT 1.5 MCG/KG/HR...GRADUAL RESTFUL EFFECT...LEVOPHED DRIP STARTED PER [facility]/PROVIDER INSTRUCTIONS....OG-TUBE PLACED BUT CXR REPORT SHOWED OG-TUBE COILED IN DISTAL ESOPHAGUS....OG-TUBE D/C'D AND NEW OG-TUBE REINSERTED...REPEAT CXR REVIEWED BY PROVIDER AND PLACEMENT CONFIRMED...TUBE FEEDS RESTARTED AT 20 CC/HR...INITIAL CHEMISTRY RESULTS K=6.5..?'D POSSIBLE HEMOLYSIS..REPEAT CHEMISTRY K=5.9...LOKELMA GIVEN PER MAR VIA OG-TUBE...10PM BLADDER SCANNED FOR 229ml...01:15 REPEAT BLADDER SCAN FOR 329ml...PROVIDER AWARE...TO RECHECK BLADDER SCAN 4AM....VENT WEANED FIO2 40% AND PEEP 5CM..PRECIDEX WEANED PER MAY...CURRENTLY NSR HR 84-88...SAO2 94-95%
[2024-06-26] MEDS: Ampicillin Sodium/Sulbactam Na 3 GM in 0.9 % Sodium Chloride 100 ML IV ×4 (02:38→19:53)
[2024-06-26] MEDS: dexmedeTOMIDine HCL/NS 400 MCG/100 ML PLAST..BAG 22.52 MCG IVCONT ×5 (03:32→20:54)
[2024-06-26] MEDS: propofoL 1,000 MG/100 ML VIAL 24.02 MG IVCONT ×6 (03:35→22:38)
[2024-06-26 05:00] LABS: VBG Base Excess 3.5 mmol/L; VBG HCO3 23 mmol/L (22-26); VBG pCO2 24 mmHg; VBG pH 7.59 (7.32-7.43); VBG pO2 112 mmHg
[2024-06-26 05:03] LABS: Venous Blood Gas Refer to POC result
[2024-06-26 05:25] LABS: ABG Base Excess 2.6 mmol/L; ABG HCO3 27 mmol/L (22-26); ABG pCO2 40 mmHg (32-45); ABG pH 7.42 (7.35-7.45); ABG pO2 68 mmHg (83-108)
[2024-06-26 05:34] LABS: ABG Refer to POC result
[2024-06-26 05:52] LABS: MANUAL DIFF FLAG NO
[2024-06-26] MEDS: Insulin Lispro 100 UNIT/ML 3 ML VIAL SUBCUT ×3 (06:02→17:23)
[2024-06-26 06:04] LABS: Glucose, Whole Blood 190 mg/dL (60-115)
[2024-06-26 06:20] LABS: Basophils Absolute Auto 0.1 X10*3/uL (0.0-0.2); Basophils Percent Auto 0.5 % (0-2); Eosinophils Absolute Auto 0.2 X10*3/uL (0.0-0.4); Eosinophils Percent Auto 1.3 % (0-4); Hematocrit 39.1 % (42.0-52.0); Hemoglobin 13.4 g/dl (14.0-18.0); Imm Gran Abs Auto 0.08 X10*3/uL (0.00-0.03); Imm Gran Pct Auto 0.5 % (0.0-0.4); Lymphocytes Absolute Auto 2.5 X10*3/uL (1.2-4.9); Lymphocytes Percent Auto 16.9 % (20-40); Mean Corpuscular HGB Conc 34.3 g/dl (31.0-36.0); Mean Corpuscular Hemoglobin 31.1 pg (27.0-33.0); Mean Corpuscular Volume 90.7 fL (80.0-98.0); Mean Platelet Volume 11.5 fL (9.4-12.4); Monocytes Absolute Auto 1.3 X10*3/uL (0.1-1.2); Monocytes Percent Auto 8.7 % (2-11); Neutrophils Absolute Auto 10.8 x10*3/uL (2.0-8.3); Neutrophils Percent Auto 72.1 % (45-73); Red Blood Count 4.31 X10*6/uL (4.60-5.80)
[2024-06-26 06:25] LABS: Alanine Aminotransferase 51 U/L (0-40); Albumin Level 3.6 g/dL (3.5-5.0); Alkaline Phosphatase 75 U/L (39-117); Anion Gap 19 (12-20); Aspartate Amino Transferase 46 U/L (5-37); Bilirubin Total 0.3 mg/dL (0.0-1.0); Blood Urea Nitrogen 14 mg/dL (9-16); Calcium 9.3 mg/dL (8.4-10.2); Carbon Dioxide 20 mmol/L (22-29); Chloride 106 mmol/L (96-108); Creatinine Clr Calc Pharmacy 134.3; Estimated Glomerular Filt Rate > 60; Glucose Random 182 mg/dL (60-115); Magnesium 2.2 mg/dL (1.6-2.6); Phosphorus 3.6 mg/dL (2.7-4.5); Potassium 4.9 mmol/L (3.3-5.1); Sodium 140 mmol/L (135-145); Total Protein 7.1 g/dL (6.5-8.0)
[2024-06-26 06:27] LABS: Platelet Count 389 X10*3/uL (160-400); White Blood Count 14.9 X10*3/uL (4.8-10.8)
[2024-06-26] MEDS: Multivitamin TABLET 1 TAB PO (08:33)
[2024-06-26] MEDS: busPIRone HCl 5 MG TABLET PO ×2 (08:33→20:26)
[2024-06-26] MEDS: Chlorhexidine Gluc Oral Rinse 15 ML MOUTHWASH BUCCAL ×3 (08:33→19:55)
[2024-06-26] MEDS: Folic Acid 1 MG TABLET PO (08:33)
[2024-06-26] MEDS: Magnesium Oxide 400 MG TABLET PO (08:33)
[2024-06-26] MEDS: PHENobarbitaL 15 MG TABLET 45 MG PO ×2 (08:33→20:26)
[2024-06-26] MEDS: Famotidine/PF 20 MG/2 ML VIAL IVPUSH (08:33)
[2024-06-26] MEDS: Norepinephrine Bitartrate/D5W 8 MG/250 ML PLAST..BAG 16.89 MG IVCONT (09:13)
--- NOTE | 2024-06-26 10:26 | PM.CCPN ---
Subjective Subjective Date of Service: 06/26/24 Interval History: 63-year-old history alcohol dependence with prior withdrawal, diabetes mellitus and depression anxiety admitted on 06/12/2024 with alcohol intoxication and withdrawal requiring sedative drips and ICU level of monitoring. Delirium tremens improves and patient was transferred to telemetry morrow on 06/15/2024. Further hospital course significant for waxing and waning delirium tremens symptoms with patient being transferred back to intensive care unit on 06/18/2024 for close monitoring and sedative drips. Required intubation 06/21/2024 for high-dose sedative drips. Extubated 06/25/2024, however required re-intubation later in the day secondary to worsening agitation requiring high-dose sedative drips and pulmonary aspiration. No events overnight. Critical Care Time (minutes): 45 Physical Exam Vital Signs: Vital Signs: Last Vital Signs Temp 98.6 F 06/26/24 10:00 Pulse 72 06/26/24 10:00 Resp 18 06/26/24 10:00 BP 146/78 H 06/26/24 10:00 Pulse Ox 95 06/26/24 10:00 O2 Del Method Mechanical Ventil ation 06/26/24 10:00 O2 Flow Rate 15 06/25/24 19:00 FiO2 40 06/26/24 10:00 Oxygen Flow Rate 4 06/16/24 12:00 BMI result Body Mass Index 34.7 Const: General: no acute distress and other (Sedated on ventilatory support) Eyes: Sclerae: sclerae normal EOM: EOMs intact bilaterally Neck: Neck: Yes no lymphadenopathy, Yes trachea midline and Yes supple Resp: Auscultation: crackles (Mild bilateral) Cardio: Rate: regular rate Rhythm: regular rhythm Heart sounds: no gallops, no murmurs and no rubs GI: Palpation (GI): Soft to palpation and Other GI palpation findings present ( Nontender) Auscultation: normal bowel sounds Extrem: General: Yes no pedal edema, No clubbing and No cyanosis Objective Data Labs 06/26/24 05:02 06/26/24 05:02 Labs: Laboratory Results - last 24 hr 06/25/24 06/25/24 06/25/24 11:23 18:09 20:02 WBC RBC Hgb Hct MCV MCH MCHC RDW Plt Count MPV Immature Gran % (Auto) Neut % (Auto) Lymph % (Auto) [place] % (Auto) Eos % (Auto) Baso % (Auto) Lymph # (Auto) [place] # (Auto) Eos # (Auto) Baso # (Auto) Abs Immat Gran (auto) Absolute Neuts (auto) Absolute Nucleated RBC Nucleated RBC % (auto) O2 Saturation ABG pH at Pt Temp ABG pCO2 at Pt Temp ABG pO2 at Pt Temp ABG HCO3 ABG Base Excess (Actual) VBG pH 7.38 VBG pCO2 47 VBG pO2 35 VBG HCO3 28 H VBG O2 Saturation 58.0 VBG Base Excess 2.8 Sodium Potassium Chloride Carbon Dioxide Anion Gap BUN Creatinine Estim Creat Clear Calc Estimated GFR POC Glucose 226 H 167 H Random Glucose Lactic Acid Calcium Phosphorus Magnesium Total Bilirubin AST ALT Alkaline Phosphatase Total Protein Albumin 06/25/24 06/25/24 06/25/24 20:09 20:49 21:45 WBC 17.8 H RBC 4.60 Hgb 14.4 Hct 41.3 L MCV 89.8 MCH 31.3 MCHC 34.9 RDW 13.0 Plt Count 380 MPV 11.1 Immature Gran % (Auto) 0.4 Neut % (Auto) 83.1 H Lymph % (Auto) 9.9 L [place] % (Auto) 5.8 Eos % (Auto) 0.2 Baso % (Auto) 0.6 Lymph # (Auto) 1.8 [place] # (Auto) 1.0 Eos # (Auto) 0.0 Baso # (Auto) 0.1 Abs Immat Gran (auto) 0.08 H Absolute Neuts (auto) 14.8 H Absolute Nucleated RBC 0.000 Nucleated RBC % (auto) 0.0 O2 Saturation ABG pH at Pt Temp ABG pCO2 at Pt Temp ABG pO2 at Pt Temp ABG HCO3 ABG Base Excess (Actual) VBG pH VBG pCO2 VBG pO2 VBG HCO3 VBG O2 Saturation VBG Base Excess Sodium 139 138 Potassium 6.5 H* D 5.9 H Chloride 105 103 Carbon Dioxide 21 L 24 Anion Gap 20 17 BUN 17 H 15 Creatinine 0.71 0.74 Estim Creat Clear Calc 123.0 118.0 Estimated GFR > 60 > 60 POC Glucose Random Glucose 242 H 259 H Lactic Acid 1.9 Calcium 9.5 9.7 Phosphorus Magnesium Total Bilirubin AST ALT Alkaline Phosphatase Total Protein Albumin 06/25/24 06/26/24 06/26/24 23:24 04:56 05:02 WBC 14.9 H RBC 4.31 L Hgb 13.4 L Hct 39.1 L MCV 90.7 MCH 31.1 MCHC 34.3 RDW 13.0 Plt Count 389 MPV 11.5 Immature Gran % (Auto) 0.5 H Neut % (Auto) 72.1 Lymph % (Auto) 16.9 L [place] % (Auto) 8.7 Eos % (Auto) 1.3 Baso % (Auto) 0.5 Lymph # (Auto) 2.5 [place] # (Auto) 1.3 H Eos # (Auto) 0.2 Baso # (Auto) 0.1 Abs Immat Gran (auto) 0.08 H Absolute Neuts (auto) 10.8 H Absolute Nucleated RBC 0.000 Nucleated RBC % (auto) 0.0 O2 Saturation ABG pH at Pt Temp ABG pCO2 at Pt Temp ABG pO2 at Pt Temp ABG HCO3 ABG Base Excess (Actual) VBG pH 7.59 H VBG pCO2 24 VBG pO2 112 VBG HCO3 23 VBG O2 Saturation 100.0 VBG Base Excess 3.5 Sodium 140 Potassium 4.9 Chloride 106 Carbon Dioxide 20 L Anion Gap 19 BUN 14 Creatinine 0.68 Estim Creat Clear Calc 134.3 Estimated GFR > 60 POC Glucose 232 H Random Glucose 182 H Lactic Acid Calcium 9.3 Phosphorus 3.6 Magnesium 2.2 Total Bilirubin 0.3 AST 46 H ALT 51 H Alkaline Phosphatase 75 Total Protein 7.1 Albumin 3.6 06/26/24 06/26/24 05:21 05:59 WBC RBC Hgb Hct MCV MCH MCHC RDW Plt Count MPV Immature Gran % (Auto) Neut % (Auto) Lymph % (Auto) [place] % (Auto) Eos % (Auto) Baso % (Auto) Lymph # (Auto) [place] # (Auto) Eos # (Auto) Baso # (Auto) Abs Immat Gran (auto) Absolute Neuts (auto) Absolute Nucleated RBC Nucleated RBC % (auto) O2 Saturation 94.0 ABG pH at Pt Temp 7.42 ABG pCO2 at Pt Temp 40 ABG pO2 at Pt Temp 68 L ABG HCO3 27 H ABG Base Excess (Actual) 2.6 VBG pH VBG pCO2 VBG pO2 VBG HCO3 VBG O2 Saturation VBG Base Excess Sodium Potassium Chloride Carbon Dioxide Anion Gap BUN Creatinine Estim Creat Clear Calc Estimated GFR POC Glucose 190 H Random Glucose Lactic Acid Calcium Phosphorus Magnesium Total Bilirubin AST ALT Alkaline Phosphatase Total Protein Albumin Microbiology Microbiology Results: Microbiology 06/12/24 17:00 Blood - Venous Blood Culture - Final No growth after 5 days. 06/12/24 16:45 Blood - Venous Blood Culture - Final No growth after 5 days. Progress Note: A&P Assessment and plan (1) Delirium tremens: Status: Acute (2) Diabetes: Status: Acute (3) Pulmonary aspiration: Status: Resolved (4) Acute respiratory failure with hypoxia: Status: Acute Plan Assessment: 63-year-old gentleman admitted with alcohol intoxication further complicated by delirium tremens requiring sedative drips, now improved Plan: Neuro: Delirium tremens, continue to titrate off sedative drips. Cardiac: No acute issues. Pulmonary: Required re-intubation on 06/25/2024 for high-dose sedative drips and pulmonary aspiration, continue to titrate off ventilatory support as tolerated. Renal: No acute issues. Endo: No acute issues. Underlying diabetes mellitus continue sliding scale insulin. GI: No acute issues. ID: Empiric coverage for pulmonary aspiration Heme/Onc: No acute issues. Psych: No acute issues. Miscellaneous: No acute issues. Prophylaxis: Lovenox, famotidine Diet: Tube feeds Critical care time spent: 45 minutes Quality Stroke Does the patient have a stroke diagnosis?: No VTE Prior VTE?: No VTE Risk Level:: Medical - low VTE Device Contraindication: N/A - Device Ordered VTE Drug Contraindication: N/A - Med Ordered
--- NOTE | 2024-06-26 10:35 | MHC.CLN ---
F/U PT EXTUBATED BUT THEN RE-INTUBATED YESTERDAY DISCUSSED AT ROUNDS WITH PT RECEIVING PROMOTE AT MAX GOAL RATE 60ML/HR PROVIDES 1440KCALS (2074KCALS TOTAL WITH SEDATION; 24KCALS/KG BASED ON CMW), 90G PROTEIN (1.05G/KG), 1208ML FREE WATER FROM FORMULA RECOMMEND ADDING 240ML FREE WATER FLUSHES Q 6 HRS TO PROVIDE 2168ML TOTAL WATER FROM FORMULA AND FLUSHES (26ML/KG) CONTINUE TO MONITOR TOLERANCE AND LYTES
[2024-06-26 11:43] LABS: Glucose, Whole Blood 277 mg/dL (60-115)
[2024-06-26] MEDS: Lactulose 20 GM/30 ML SOLUTION 30 GM PO ×2 (13:32→20:25)
--- NOTE | 2024-06-26 13:59 | MHC.CM.PN ---
Pt remains on vent support with a focus on PSV trials. Pt will need to be seen by CARE team once he is medically stable and participating in discussions. Pt may need placement in some setting either for ETOH or skilled rehab. CM to follow
[2024-06-26 17:12] LABS: Glucose, Whole Blood 298 mg/dL (60-115)
[2024-06-26] MEDS: Enoxaparin Sodium 40 MG/0.4 ML SYRINGE SUBCUT (17:23)
--- NOTE | 2024-06-26 17:25 | PC.NURSE ---
Assumed care at 0700 - remains intubated and sedated. No sedation vacation per MD. Failed voiding trail - Mccarthy cath placed per MD w/o incident. Family at bedside and updated by this RN and MD. Care ongoing.
[2024-06-26] MEDS: Midazolam HCl 2 MG/2 ML VIAL IVPUSH (17:48)
[2024-06-26] MEDS: Buprenorphine/Naloxone 8/2 mg FILM 2 FILM BUCCAL (20:26)
[2024-06-27] VITALS (32 sets, daily range): BP systolic 88–138; BP diastolic 53–88; PULSE 65–146; RESP 15–30; TEMP 35–38.7; O2SAT 82–95; BMI 33.0
[2024-06-27 00:13] LABS: Glucose, Whole Blood 257 mg/dL (60-115)
[2024-06-27] MEDS: Insulin Lispro 100 UNIT/ML 3 ML VIAL SUBCUT ×4 (00:34→17:34)
[2024-06-27] MEDS: dexmedeTOMIDine HCL/NS 400 MCG/100 ML PLAST..BAG 22.52 MCG IVCONT ×3 (01:11→09:33)
[2024-06-27] MEDS: Ampicillin Sodium/Sulbactam Na 3 GM in 0.9 % Sodium Chloride 100 ML IV ×4 (02:15→19:41)
[2024-06-27] MEDS: propofoL 1,000 MG/100 ML VIAL 24.02 MG IVCONT ×3 (02:19→09:31)
[2024-06-27 04:47] LABS: VBG Base Excess 4.7 mmol/L; VBG HCO3 27 mmol/L (22-26); VBG pCO2 32 mmHg; VBG pH 7.52 (7.32-7.43); VBG pO2 43 mmHg
[2024-06-27 05:29] LABS: Basophils Absolute Auto 0.1 X10*3/uL (0.0-0.2); Basophils Percent Auto 0.6 % (0-2); Eosinophils Absolute Auto 0.3 X10*3/uL (0.0-0.4); Eosinophils Percent Auto 2.7 % (0-4); Hematocrit 38.1 % (42.0-52.0); Imm Gran Abs Auto 0.06 X10*3/uL (0.00-0.03); Imm Gran Pct Auto 0.5 % (0.0-0.4); Lymphocytes Percent Auto 17.3 % (20-40); MANUAL DIFF FLAG SCAN; Mean Corpuscular HGB Conc 34.1 g/dl (31.0-36.0); Mean Corpuscular Hemoglobin 30.7 pg (27.0-33.0); Mean Corpuscular Volume 89.9 fL (80.0-98.0); Monocytes Percent Auto 8.2 % (2-11); Neutrophils Absolute Auto 8.2 x10*3/uL (2.0-8.3); Neutrophils Percent Auto 70.7 % (45-73); PLT CLUMP 1; Red Blood Count 4.24 X10*6/uL (4.60-5.80); SCAN SMEAR FLAG 1; White Blood Count 11.5 X10*3/uL (4.8-10.8)
[2024-06-27 05:45] LABS: Albumin Level 3.3 g/dL (3.5-5.0); Anion Gap 14 (12-20); Blood Urea Nitrogen 13 mg/dL (9-16); Calcium 8.8 mg/dL (8.4-10.2); Carbon Dioxide 23 mmol/L (22-29); Chloride 105 mmol/L (96-108); Estimated Glomerular Filt Rate > 60; Glucose Random 216 mg/dL (60-115); Phosphorus 2.4 mg/dL (2.7-4.5); Sodium 138 mmol/L (135-145)
[2024-06-27] MEDS: Norepinephrine Bitartrate/D5W 8 MG/250 ML PLAST..BAG 9.38 MG IVCONT (05:52)
[2024-06-27 06:05] LABS: Mean Platelet Volume 10.9 fL (9.4-12.4); Platelet Count 398 X10*3/uL (160-400); SLIDE REVIEW VERIFIED; Venous Blood Gas Refer to POC result
[2024-06-27] MEDS: Sodium,Potassium Phosphates POWD.PACK 2 PACKET OG-TUBE (07:38)
[2024-06-27] MEDS: busPIRone HCl 5 MG TABLET PO (07:39)
[2024-06-27] MEDS: Folic Acid 1 MG TABLET PO (07:39)
[2024-06-27] MEDS: PHENobarbitaL 15 MG TABLET 45 MG PO (07:39)
[2024-06-27] MEDS: Finasteride 5 MG TABLET PO (07:39)
[2024-06-27] MEDS: Multivitamin TABLET 1 TAB PO (07:39)
[2024-06-27] MEDS: Famotidine/PF 20 MG/2 ML VIAL IVPUSH (07:40)
[2024-06-27] MEDS: Lactulose 20 GM/30 ML SOLUTION 30 GM PO (07:40)
[2024-06-27] MEDS: Chlorhexidine Gluc Oral Rinse 15 ML MOUTHWASH BUCCAL ×2 (07:40→15:17)
[2024-06-27] MEDS: Magnesium Oxide 400 MG TABLET PO (07:40)
[2024-06-27] MEDS: Nicotine 21 MG PATCH.TD24 TRANSDERMA (07:40)
--- NOTE | 2024-06-27 11:11 | P.PNCC_ITS ---
Subjective Subjective Date of Service: 06/27/24 Interval History: 63-year-old history alcohol dependence with prior withdrawal, diabetes mellitus and depression anxiety admitted on 06/12/2024 with alcohol intoxication and withdrawal requiring sedative drips and ICU level of monitoring. Delirium tremens improves and patient was transferred to telemetry morrow on 06/15/2024. Further hospital course significant for waxing and waning delirium tremens symptoms with patient being transferred back to intensive care unit on 06/18/2024 for close monitoring and sedative drips. Required intubation 06/21/2024 for high- dose sedative drips. Extubated 06/25/2024, however required re-intubation later in the day secondary to worsening agitation requiring high-dose sedative drips and pulmonary aspiration. No events overnight. Critical Care Time (minutes): 45 Physical Exam 2 Vital Signs: Vital Signs: Last Vital Signs Temp 101.3 F H 06/27/24 10:00 Pulse 97 06/27/24 10:00 Resp 18 06/27/24 10:00 BP 119/62 06/27/24 10:00 Pulse Ox 88 L 06/27/24 10:00 O2 Del Method Mechanical Ventil ation 06/27/24 10:00 O2 Flow Rate 15 06/25/24 19:00 FiO2 40 06/27/24 10:10 Oxygen Flow Rate 4 06/16/24 12:00 BMI result Body Mass Index 33.0 Const: General: no acute distress and other (Sedated on ventilatory support) Eyes: Sclerae: sclerae normal EOM: EOMs intact bilaterally Neck: Neck: Yes no lymphadenopathy, Yes trachea midline and Yes supple Resp: Auscultation: clear to auscultation bilaterally Cardio: Rate: regular rate Rhythm: regular rhythm Heart sounds: no gallops, no murmurs and no rubs GI: Palpation (GI): Soft to palpation and Other GI palpation findings present ( Nontender) Auscultation: normal bowel sounds Extrem: General: Yes no pedal edema, No clubbing and No cyanosis Objective Data Labs 06/27/24 04:42 06/27/24 04:42 Labs: Laboratory Results - last 24 hr 06/26/24 06/26/24 06/27/24 11:33 17:06 00:09 WBC RBC Hgb Hct MCV MCH MCHC RDW Plt Count MPV Immature Gran % (Auto) Neut % (Auto) Lymph % (Auto) [place] % (Auto) Eos % (Auto) Baso % (Auto) Lymph # (Auto) [place] # (Auto) Eos # (Auto) Baso # (Auto) Abs Immat Gran (auto) Absolute Neuts (auto) Absolute Nucleated RBC Nucleated RBC % (auto) Smear Tech's Comments VBG pH VBG pCO2 VBG pO2 VBG HCO3 VBG O2 Saturation VBG Base Excess Sodium Potassium Chloride Carbon Dioxide Anion Gap BUN Creatinine Estim Creat Clear Calc Estimated GFR POC Glucose 277 H 298 H 257 H Random Glucose Calcium Phosphorus Magnesium Albumin 06/27/24 06/27/24 04:42 04:43 WBC 11.5 H RBC 4.24 L Hgb 13.0 L Hct 38.1 L MCV 89.9 MCH 30.7 MCHC 34.1 RDW 13.0 Plt Count 398 MPV 10.9 Immature Gran % (Auto) 0.5 H Neut % (Auto) 70.7 Lymph % (Auto) 17.3 L [place] % (Auto) 8.2 Eos % (Auto) 2.7 Baso % (Auto) 0.6 Lymph # (Auto) 2.0 [place] # (Auto) 1.0 Eos # (Auto) 0.3 Baso # (Auto) 0.1 Abs Immat Gran (auto) 0.06 H Absolute Neuts (auto) 8.2 Absolute Nucleated RBC 0.000 Nucleated RBC % (auto) 0.0 Smear Tech's Comments VERIFIED VBG pH 7.52 H VBG pCO2 32 VBG pO2 43 VBG HCO3 27 H VBG O2 Saturation 79.0 VBG Base Excess 4.7 Sodium 138 Potassium 4.0 Chloride 105 Carbon Dioxide 23 Anion Gap 14 BUN 13 Creatinine 0.65 Estim Creat Clear Calc 137.0 Estimated GFR > 60 POC Glucose Random Glucose 216 H Calcium 8.8 Phosphorus 2.4 L Magnesium 2.0 Albumin 3.3 L Microbiology Microbiology Results: Microbiology 06/25/24 20:09 Blood - Venous Blood Culture - Preliminary No growth after 24 hours. 06/25/24 20:09 Blood - Venous Blood Culture - Preliminary No growth after 24 hours. 06/12/24 17:00 Blood - Venous Blood Culture - Final No growth after 5 days. 06/12/24 16:45 Blood - Venous Blood Culture - Final No growth after 5 days. Progress Note: A&P Assessment and plan (1) Delirium tremens: Status: Acute (2) Acute respiratory failure with hypoxia: Status: Acute (3) Pulmonary aspiration: Status: Resolved Plan Assessment: 63-year-old gentleman admitted with alcohol intoxication further complicated by delirium tremens requiring sedative drips, now improved Plan: Neuro: Delirium tremens, continue to titrate off sedative drips. Cardiac: No acute issues. Pulmonary: Required re-intubation on 06/25/2024 for high-dose sedative drips and pulmonary aspiration, continue to titrate off ventilatory support as tolerated. Renal: No acute issues. Endo: No acute issues. Underlying diabetes mellitus continue sliding scale insulin. GI: No acute issues. ID: Empiric coverage for pulmonary aspiration Heme/Onc: No acute issues. Psych: No acute issues. Miscellaneous: No acute issues. Prophylaxis: Lovenox, famotidine Diet: Tube feeds Critical care time spent: 45 minutes Quality Stroke Does the patient have a stroke diagnosis?: No VTE Prior VTE?: No VTE Risk Level:: Medical - low VTE Device Contraindication: N/A - Device Ordered VTE Drug Contraindication: N/A - Med Ordered
--- NOTE | 2024-06-27 11:13 | PC.RT ---
Pt extubated at 1055 am. Pt was trialed on PSV at 1000am, 5/5 40%. Pt derek PSV well. Positive cuff leak tested. Pt had increased sputum production orally and endotracheally after sedation was lowered. MD requested extubation. RT followed MD order and extubated pt. Pt had increased O2 requirements post extubation, now requiring 15L oxy mask SATs 82-84%. RT asked MD for high flow oxygen due to SATs, MD stated not at this time and to leave pt on current oxymask. Pt has strong cough however unable to spit out secretions and clear throat. RT and RN at bedside with continuous suction. Pt SATs remained below 84%. Pt now in full seated position w/ [place] 15L and oxymask 15L, SATs 86-87%. Will continue to monitor.
--- NOTE | 2024-06-27 11:42 | PC.RT ---
Pt current HR 126, SATs 83-85% on 15L Anderson and 15L oxymask. RN at bedside w/ continuos suction to clear airway. Pt has been able tp spit out secretions x2 with coaching from RN, otherwise is requiring continuos assistance. Pt still in full sitting position.
[2024-06-27 11:55] LABS: Glucose, Whole Blood 209 mg/dL (60-115)
--- NOTE | 2024-06-27 12:30 | PC.RT ---
O2 titrated down to 9L Anderson 90%. Will continue to titrate to keep SATs 88-92%.
--- NOTE | 2024-06-27 13:25 | PC.NURSE ---
Addendum entered by Candy Colin RN 06/27/24 16:55: Pt improving with mobilizing secretions, spitting phlem in emesis bag. 15:35 Pt restless, attempting to get OOB, not following redirection. Precedex gtt restarted and titrated down to 0.4, see MAR. RASS at goal 0. Pt passed one medium soft brown BM. Addendum entered by Candy Colin RN 06/27/24 14:27: 1 episode of emesis, clear color and ~100 ml. Oral suctioning provided. PRN zofran IVP given to prevent further vomiting. Pt denies nausea. Original Note: Assumed ccare of patient 0700 Pt mechanically ventillated on ACPC RR 16/ PC 15/ PEEP 5.0/ FiO2 50%. Per MD sedation vacation initiated 09:40. Propofol decreased from rate of 40 down to 10, Precedex @0.9. RT checked for positive cuff leak. 10:00 Pt more awake, opens eyes to name, PSV trial trial started 5/5.0, 40% 10:23 Pt follows commands to squeeze hands, wiggle toes and feet, lifts head off pillow to command. Propofol shut off. Pt calm and cooperative, RR 16-20. 10:55 Patient extubated per MD orders. 15L garcia NC applied by RT. Pt able to cough secretions with strong cough but has difficulty moving forward to expectorate. Frequent suctioning provided. 11:10 Precedex gtt shut off per MD. 11:45 Pt HR increasing to 130s, SaO2 87% on 15L garcia + oxymask 15L, diaphoretic. MD notified Frequent oral suctioning continued for patient. 12:00 pt titrated down to 9L garcia NC, SaO2 90%. Goal per MD 88-92%. 13:00 patient provided cool bed bath. Pt continues to be diaphoretic. MD notified of elevated temperature.
[2024-06-27] MEDS: ondansetron HCL 4 MG/2 ML VIAL IVPUSH (14:09)
[2024-06-27 17:20] LABS: Glucose, Whole Blood 207 mg/dL (60-115)
[2024-06-27] MEDS: Enoxaparin Sodium 40 MG/0.4 ML SYRINGE SUBCUT (17:34)
[2024-06-27] MEDS: Buprenorphine/Naloxone 8/2 mg FILM 2 FILM BUCCAL (20:07)
[2024-06-27] MEDS: dexmedeTOMIDine HCL/NS 400 MCG/100 ML PLAST..BAG 15.02 MCG IVCONT (21:38)
[2024-06-28] VITALS (25 sets, daily range): BP systolic 97–143; BP diastolic 48–96; PULSE 76–107; RESP 11–20; TEMP 37–38; O2SAT 89–97; BMI 32.0
[2024-06-28 00:13] LABS: Glucose, Whole Blood 142 mg/dL (60-115)
[2024-06-28] MEDS: Ampicillin Sodium/Sulbactam Na 3 GM in 0.9 % Sodium Chloride 100 ML IV ×4 (02:18→20:23)
[2024-06-28] MEDS: dexmedeTOMIDine HCL/NS 400 MCG/100 ML PLAST..BAG 20.02 MCG IVCONT (02:59)
[2024-06-28 04:56] LABS: VBG Base Excess 7.5 mmol/L; VBG HCO3 30 mmol/L (22-26); VBG pCO2 38 mmHg; VBG pO2 52 mmHg
[2024-06-28 05:02] LABS: MANUAL DIFF FLAG NO
[2024-06-28 05:14] LABS: Basophils Absolute Auto 0.1 X10*3/uL (0.0-0.2); Basophils Percent Auto 0.5 % (0-2); Eosinophils Absolute Auto 0.1 X10*3/uL (0.0-0.4); Eosinophils Percent Auto 0.9 % (0-4); Hematocrit 36.8 % (42.0-52.0); Hemoglobin 12.3 g/dl (14.0-18.0); Imm Gran Abs Auto 0.05 X10*3/uL (0.00-0.03); Imm Gran Pct Auto 0.4 % (0.0-0.4); Lymphocytes Absolute Auto 2.6 X10*3/uL (1.2-4.9); Lymphocytes Percent Auto 18.8 % (20-40); Mean Corpuscular HGB Conc 33.4 g/dl (31.0-36.0); Mean Corpuscular Hemoglobin 30.8 pg (27.0-33.0); Mean Corpuscular Volume 92.2 fL (80.0-98.0); Mean Platelet Volume 10.8 fL (9.4-12.4); Monocytes Absolute Auto 1.2 X10*3/uL (0.1-1.2); Monocytes Percent Auto 8.3 % (2-11); Neutrophils Percent Auto 71.1 % (45-73); Platelet Count 424 X10*3/uL (160-400); Red Blood Count 3.99 X10*6/uL (4.60-5.80)
[2024-06-28 05:29] LABS: Alanine Aminotransferase 149 U/L (0-40); Albumin Level 3.4 g/dL (3.5-5.0); Alkaline Phosphatase 89 U/L (39-117); Anion Gap 17 (12-20); Aspartate Amino Transferase 144 U/L (5-37); Bilirubin Total 0.5 mg/dL (0.0-1.0); Blood Urea Nitrogen 15 mg/dL (9-16); Calcium 9.1 mg/dL (8.4-10.2); Carbon Dioxide 24 mmol/L (22-29); Chloride 106 mmol/L (96-108); Creatinine Clr Calc Pharmacy 127.2; Estimated Glomerular Filt Rate > 60; Glucose Random 133 mg/dL (60-115); Magnesium 2.1 mg/dL (1.6-2.6); Phosphorus 3.3 mg/dL (2.7-4.5); Potassium 5.7 mmol/L (3.3-5.1); Sodium 141 mmol/L (135-145); Total Protein 7.2 g/dL (6.5-8.0)
[2024-06-28 06:15] LABS: Venous Blood Gas Refer to POC result
[2024-06-28 08:26] LABS: Anion Gap 12 (12-20); Blood Urea Nitrogen 16 mg/dL (9-16); Calcium 9.2 mg/dL (8.4-10.2); Carbon Dioxide 27 mmol/L (22-29); Chloride 108 mmol/L (96-108); Estimated Glomerular Filt Rate > 60; Glucose Random 137 mg/dL (60-115); Potassium 4.2 mmol/L (3.3-5.1); Sodium 143 mmol/L (135-145)
[2024-06-28] MEDS: Nicotine 21 MG PATCH.TD24 TRANSDERMA (08:56)
[2024-06-28] MEDS: Famotidine/PF 20 MG/2 ML VIAL IVPUSH (08:56)
[2024-06-28] MEDS: dexmedeTOMIDine HCL/NS 400 MCG/100 ML PLAST..BAG 10.01 MCG IVCONT (08:58)
[2024-06-28] MEDS: PHENobarbitaL 30 MG TABLET PO ×2 (09:17→20:23)
[2024-06-28] MEDS: busPIRone HCl 5 MG TABLET PO ×2 (09:17→20:23)
[2024-06-28] MEDS: Finasteride 5 MG TABLET PO (09:21)
--- NOTE | 2024-06-28 09:36 | P.PNCC_ITS ---
Subjective Subjective Date of Service: 06/28/24 Interval History: 63-year-old history alcohol dependence with prior withdrawal, diabetes mellitus and depression anxiety admitted on 06/12/2024 with alcohol intoxication and withdrawal requiring sedative drips and ICU level of monitoring. Delirium tremens improves and patient was transferred to telemetry morrow on 06/15/2024. Further hospital course significant for waxing and waning delirium tremens symptoms with patient being transferred back to intensive care unit on 06/18/2024 for close monitoring and sedative drips. Required intubation 06/21/2024 for high- dose sedative drips. Extubated 06/25/2024, however required re-intubation later in the day secondary to worsening agitation requiring high-dose sedative drips and pulmonary aspiration. Extubated 06/27/2024. No events overnight. Critical Care Time (minutes): 0 Physical Exam 2 Vital Signs: Vital Signs: Last Vital Signs Temp 99.0 F 06/28/24 09:00 Pulse 84 06/28/24 09:00 Resp 16 06/28/24 09:00 BP 103/61 06/28/24 09:00 Pulse Ox 96 06/28/24 09:00 O2 Del Method Nasal Cannula 06/28/24 09:00 O2 Flow Rate 5 06/28/24 09:00 FiO2 40 06/27/24 11:26 Oxygen Flow Rate 4 06/16/24 12:00 BMI result Body Mass Index 32.0 Const: General: no acute distress, alert and awake Eyes: Sclerae: sclerae normal EOM: EOMs intact bilaterally Neck: Neck: Yes no lymphadenopathy, Yes trachea midline and Yes supple Resp: Effort & Inspection: normal respiratory effort and no respiratory distress Auscultation: clear to auscultation bilaterally Cardio: Rate: regular rate Rhythm: regular rhythm Heart sounds: no gallops, no murmurs and no rubs GI: Palpation (GI): Soft to palpation and Other GI palpation findings present ( Nontender) Auscultation: normal bowel sounds Extrem: General: Yes no pedal edema, No clubbing and No cyanosis Objective Data Labs 06/28/24 04:50 06/28/24 07:51 Labs: Laboratory Results - last 24 hr 06/27/24 06/27/24 06/28/24 11:52 17:15 00:10 WBC RBC Hgb Hct MCV MCH MCHC RDW Plt Count MPV Immature Gran % (Auto) Neut % (Auto) Lymph % (Auto) [place] % (Auto) Eos % (Auto) Baso % (Auto) Lymph # (Auto) [place] # (Auto) Eos # (Auto) Baso # (Auto) Abs Immat Gran (auto) Absolute Neuts (auto) Absolute Nucleated RBC Nucleated RBC % (auto) VBG pH VBG pCO2 VBG pO2 VBG HCO3 VBG O2 Saturation VBG Base Excess Sodium Potassium Chloride Carbon Dioxide Anion Gap BUN Creatinine Estim Creat Clear Calc Estimated GFR POC Glucose 209 H 207 H 142 H Random Glucose Calcium Phosphorus Magnesium Total Bilirubin AST ALT Alkaline Phosphatase Total Protein Albumin 06/28/24 06/28/24 06/28/24 04:50 04:51 07:51 WBC 14.0 H RBC 3.99 L Hgb 12.3 L Hct 36.8 L MCV 92.2 MCH 30.8 MCHC 33.4 RDW 13.0 Plt Count 424 H MPV 10.8 Immature Gran % (Auto) 0.4 Neut % (Auto) 71.1 Lymph % (Auto) 18.8 L [place] % (Auto) 8.3 Eos % (Auto) 0.9 Baso % (Auto) 0.5 Lymph # (Auto) 2.6 [place] # (Auto) 1.2 Eos # (Auto) 0.1 Baso # (Auto) 0.1 Abs Immat Gran (auto) 0.05 H Absolute Neuts (auto) 10.0 H Absolute Nucleated RBC 0.000 Nucleated RBC % (auto) 0.0 VBG pH 7.50 H VBG pCO2 38 VBG pO2 52 VBG HCO3 30 H VBG O2 Saturation 88.0 VBG Base Excess 7.5 Sodium 141 143 Potassium 5.7 H D 4.2 D Chloride 106 108 Carbon Dioxide 24 27 Anion Gap 17 12 BUN 15 16 Creatinine 0.69 0.66 Estim Creat Clear Calc 127.2 133.0 Estimated GFR > 60 > 60 POC Glucose Random Glucose 133 H 137 H Calcium 9.1 9.2 Phosphorus 3.3 Magnesium 2.1 Total Bilirubin 0.5 AST 144 H ALT 149 H Alkaline Phosphatase 89 Total Protein 7.2 Albumin 3.4 L Microbiology Microbiology Results: Microbiology 06/25/24 20:09 Blood - Venous Blood Culture - Preliminary No growth after 48 hours. 06/25/24 20:09 Blood - Venous Blood Culture - Preliminary No growth after 48 hours. 06/12/24 17:00 Blood - Venous Blood Culture - Final No growth after 5 days. 06/12/24 16:45 Blood - Venous Blood Culture - Final No growth after 5 days. Progress Note: A&P Assessment and plan (1) Delirium tremens: Status: Acute Plan Assessment: 63-year-old gentleman admitted with alcohol intoxication further complicated by delirium tremens requiring sedative drips, now improved Plan: Neuro: Delirium tremens, continue to titrate off sedative drips. Cardiac: No acute issues. Pulmonary: Required re-intubation on 06/25/2024 for high-dose sedative drips and pulmonary aspiration, continue to titrate off ventilatory support as tolerated. Extubated 06/27/2024. Renal: No acute issues. Endo: No acute issues. Underlying diabetes mellitus continue sliding scale insulin. GI: No acute issues. ID: Empiric coverage for pulmonary aspiration Heme/Onc: No acute issues. Psych: No acute issues. Miscellaneous: No acute issues. Prophylaxis: Lovenox Diet: Regular Quality Stroke Does the patient have a stroke diagnosis?: No VTE Prior VTE?: No VTE Risk Level:: Medical - low VTE Device Contraindication: N/A - Device Ordered VTE Drug Contraindication: N/A - Med Ordered
[2024-06-28] MEDS: Insulin Lispro 100 UNIT/ML 3 ML VIAL SUBCUT ×2 (11:49→17:59)
[2024-06-28 11:51] LABS: Glucose, Whole Blood 161 mg/dL (60-115)
[2024-06-28] MEDS: Acetaminophen 325 MG TABLET 650 MG PO (12:31)
[2024-06-28 17:54] LABS: Glucose, Whole Blood 165 mg/dL (60-115)
[2024-06-28] MEDS: dexmedeTOMIDine HCL/NS 400 MCG/100 ML PLAST..BAG 5.01 MCG IVCONT (18:00)
[2024-06-28] MEDS: Enoxaparin Sodium 40 MG/0.4 ML SYRINGE SUBCUT (18:00)
--- NOTE | 2024-06-28 19:17 | PC.NURSE ---
Assumed care of patient 0700.Pt passed RN bedside swallow eval 09:00. Able to take pills whole with water. Pt encouraged with progressive mobility with RN and 1:1 sitter this shift. Pt sat at edge of bed frequently. 18:00 assisted pt with 2 assist pivot to commode. 4 bowel movements passed this shift. Precedex gtt titrated down to 0.2 lowest rate. Oxygen requirements decreasing. Pt titrated down to 3L garcia [place], SaO2 93%. Cough decreasing, scheduled IV Unasyn given.
[2024-06-28] MEDS: Buprenorphine/Naloxone 8/2 mg FILM 2 FILM BUCCAL (20:23)
[2024-06-28] MEDS: Tamsulosin HCL 0.4 MG CAPSULE 0.8 MG PO (20:23)
[2024-06-28 23:42] LABS: Glucose, Whole Blood 144 mg/dL (60-115)
[2024-06-29] VITALS (19 sets, daily range): BP systolic 127–179; BP diastolic 66–111; PULSE 96–128; RESP 10–20; TEMP 36.4–36.6; O2SAT 89–97; BMI 32.0
[2024-06-29] MEDS: Ampicillin Sodium/Sulbactam Na 3 GM in 0.9 % Sodium Chloride 100 ML IV ×4 (02:03→20:31)
[2024-06-29] MEDS: Acetaminophen 325 MG TABLET 650 MG PO ×2 (02:03→18:23)
--- NOTE | 2024-06-29 05:11 | PC.NURSE ---
Upon initial assessment at 1900- pt A&Ox3, vague/forgetful at times r/t situation/date but calm/cooperative, ORTIZ. Precedex gtt turned off. Afebrile. NSR/ST on tele, HR 90-120s with exertion. SBP WNL. Oxygen titrated off, encouraged to TCDB. Tolerating PO intake without issue. Mccarthy removed, DTV at approx 1045. Skin overall intact. 1:1 sitter at bedside. Bed locked in lowest position, alarm on. Pt aware of plan of care. See EMR/flowsheet for further details.
[2024-06-29 05:28] LABS: VBG Base Excess 5.4 mmol/L; VBG HCO3 27 mmol/L (22-26); VBG pCO2 31 mmHg; VBG pH 7.54 (7.32-7.43); VBG pO2 42 mmHg
[2024-06-29 05:33] LABS: Venous Blood Gas Refer to POC result
[2024-06-29 05:55] LABS: MANUAL DIFF FLAG NO
[2024-06-29 05:57] LABS: Basophils Absolute Auto 0.1 X10*3/uL (0.0-0.2); Eosinophils Absolute Auto 0.3 X10*3/uL (0.0-0.4); Eosinophils Percent Auto 3.3 % (0-4); Hematocrit 38.4 % (42.0-52.0); Hemoglobin 12.8 g/dl (14.0-18.0); Imm Gran Abs Auto 0.04 X10*3/uL (0.00-0.03); Imm Gran Pct Auto 0.4 % (0.0-0.4); Lymphocytes Absolute Auto 2.7 X10*3/uL (1.2-4.9); Lymphocytes Percent Auto 26.2 % (20-40); Mean Corpuscular HGB Conc 33.3 g/dl (31.0-36.0); Mean Corpuscular Hemoglobin 30.8 pg (27.0-33.0); Mean Corpuscular Volume 92.3 fL (80.0-98.0); Monocytes Absolute Auto 1.2 X10*3/uL (0.1-1.2); Monocytes Percent Auto 11.7 % (2-11); Neutrophils Absolute Auto 5.9 x10*3/uL (2.0-8.3); Neutrophils Percent Auto 57.4 % (45-73); Platelet Count 483 X10*3/uL (160-400); Red Blood Count 4.16 X10*6/uL (4.60-5.80); Red Cell Distribution Width 12.9 % (11.0-16.0); White Blood Count 10.2 X10*3/uL (4.8-10.8)
[2024-06-29 06:18] LABS: Alanine Aminotransferase 126 U/L (0-40); Albumin Level 3.8 g/dL (3.5-5.0); Alkaline Phosphatase 85 U/L (39-117); Anion Gap 14 (12-20); Aspartate Amino Transferase 85 U/L (5-37); Bilirubin Total 0.4 mg/dL (0.0-1.0); Blood Urea Nitrogen 14 mg/dL (9-16); Calcium 9.6 mg/dL (8.4-10.2); Carbon Dioxide 26 mmol/L (22-29); Chloride 108 mmol/L (96-108); Creatinine Clr Calc Pharmacy 129.1; Estimated Glomerular Filt Rate > 60; Glucose Random 126 mg/dL (60-115); Potassium 3.6 mmol/L (3.3-5.1); Sodium 144 mmol/L (135-145); Total Protein 7.4 g/dL (6.5-8.0)
--- NOTE | 2024-06-29 08:33 | PM.CCPN ---
Subjective Subjective Date of Service: 06/29/24 Interval History: Mental status slowly improved Not on any drips currently Critical Care Time (minutes): 35 Physical Exam Vital Signs: Vital Signs: Last Vital Signs Temp 97.8 F 06/29/24 08:00 Pulse 106 H 06/29/24 08:00 Resp 13 06/29/24 08:00 BP 146/82 H 06/29/24 08:00 Pulse Ox 95 06/29/24 08:00 O2 Del Method Nasal Cannula 06/29/24 08:00 O2 Flow Rate 1 06/29/24 08:00 FiO2 40 06/27/24 11:26 Oxygen Flow Rate 4 06/16/24 12:00 BMI result Body Mass Index 32.0 General: Chronic ill appearing and tired appearing Nutritional Appearance: well nourished and overweight Eyes: appearance normal, both eyes and all related structures; Alignment and Position: alignment normal and position normal Neck: No lymphadenopathy, no thyromegaly Resp: bilateral air entry equal, occasional added sounds present Cardio: Regular rate, regular rhythm; Heart sounds: S1 normal heart sound present and S2 normal heart sound present GI: soft, nontender, no guarding, no hepatosplenomegaly : bladder normal to inspection, bladder normal to palpation, no renal angle tenderness Skin: no rashes or lesions noted and elasticity normal Neuro: oriented to person, oriented to place, oriented to time and moves all extremities Objective Data Labs 06/29/24 05:13 06/29/24 05:13 Labs: Laboratory Results - last 24 hr 06/28/24 06/28/24 06/28/24 11:47 17:43 23:28 WBC RBC Hgb Hct MCV MCH MCHC RDW Plt Count MPV Immature Gran % (Auto) Neut % (Auto) Lymph % (Auto) [place] % (Auto) Eos % (Auto) Baso % (Auto) Lymph # (Auto) [place] # (Auto) Eos # (Auto) Baso # (Auto) Abs Immat Gran (auto) Absolute Neuts (auto) Absolute Nucleated RBC Nucleated RBC % (auto) VBG pH VBG pCO2 VBG pO2 VBG HCO3 VBG O2 Saturation VBG Base Excess Sodium Potassium Chloride Carbon Dioxide Anion Gap BUN Creatinine Estim Creat Clear Calc Estimated GFR POC Glucose 161 H 165 H 144 H Random Glucose Calcium Phosphorus Magnesium Total Bilirubin AST ALT Alkaline Phosphatase Total Protein Albumin 06/29/24 06/29/24 05:13 05:24 WBC 10.2 RBC 4.16 L Hgb 12.8 L Hct 38.4 L MCV 92.3 MCH 30.8 MCHC 33.3 RDW 12.9 Plt Count 483 H MPV 11.0 Immature Gran % (Auto) 0.4 Neut % (Auto) 57.4 Lymph % (Auto) 26.2 [place] % (Auto) 11.7 H Eos % (Auto) 3.3 Baso % (Auto) 1.0 Lymph # (Auto) 2.7 [place] # (Auto) 1.2 Eos # (Auto) 0.3 Baso # (Auto) 0.1 Abs Immat Gran (auto) 0.04 H Absolute Neuts (auto) 5.9 Absolute Nucleated RBC 0.000 Nucleated RBC % (auto) 0.0 VBG pH 7.54 H VBG pCO2 31 VBG pO2 42 VBG HCO3 27 H VBG O2 Saturation 78.0 VBG Base Excess 5.4 Sodium 144 Potassium 3.6 Chloride 108 Carbon Dioxide 26 Anion Gap 14 BUN 14 Creatinine 0.68 Estim Creat Clear Calc 129.1 Estimated GFR > 60 POC Glucose Random Glucose 126 H Calcium 9.6 Phosphorus 3.0 Magnesium 2.0 Total Bilirubin 0.4 AST 85 H ALT 126 H Alkaline Phosphatase 85 Total Protein 7.4 Albumin 3.8 Microbiology Microbiology Results: Microbiology 06/25/24 20:09 Blood - Venous Blood Culture - Preliminary No growth after 48 hours. 06/25/24 20:09 Blood - Venous Blood Culture - Preliminary No growth after 48 hours. 06/12/24 17:00 Blood - Venous Blood Culture - Final No growth after 5 days. 06/12/24 16:45 Blood - Venous Blood Culture - Final No growth after 5 days. Progress Note: A&P Assessment and plan (1) Alcohol intoxication: Status: Acute (2) Delirium tremens: Status: Acute (3) Hypertension: Status: Acute (4) Diabetes: Status: Acute (5) Acute respiratory failure with hypoxia: Status: Acute (6) Hypoxia: Status: Acute Plan Acute encephalopathy: Secondary to alcohol withdrawal symptoms upon admission alcohol levels were 327, and was having withdrawal symptoms. Today is day 18 of admission continue phenobarbital; will add clonzepam 0.5mg BID. WIll recall psych and addiction. off Precedex drip since last night. he is pleasant Aspiration pneumonia: On ampicillin sulbactam Extubated on 06/27/2024 Breathing stable on room air Transaminitis: Possibly secondary to alcoholic liver disease versus drug-induced Stable LFTs Oral feeds Lines: Peripheral Prophylaxis: Lovenox, Quality Stroke Does the patient have a stroke diagnosis?: No VTE Prior VTE?: No VTE Risk Level:: Medical - low VTE Device Contraindication: N/A - Device Ordered VTE Drug Contraindication: N/A - Med Ordered
[2024-06-29] MEDS: Magnesium Oxide 400 MG TABLET PO (08:41)
[2024-06-29] MEDS: Metoprolol Succinate ER 25 MG TAB.ER.24H PO (08:41)
[2024-06-29] MEDS: Folic Acid 1 MG TABLET PO (08:41)
[2024-06-29] MEDS: 0.9 % Sodium Chloride Flush 3 ML SYRINGE IVFLUSH ×3 (08:42→23:52)
[2024-06-29] MEDS: busPIRone HCl 5 MG TABLET PO ×2 (08:42→20:31)
[2024-06-29] MEDS: Finasteride 5 MG TABLET PO (08:42)
[2024-06-29] MEDS: PHENobarbitaL 30 MG TABLET PO ×2 (08:42→20:29)
[2024-06-29] MEDS: Multivitamin TABLET 1 TAB PO (08:42)
[2024-06-29] MEDS: Nicotine 21 MG PATCH.TD24 TRANSDERMA (08:52)
--- NOTE | 2024-06-29 10:29 | MHC.CM.PN ---
Pt making clinical gains in ICU: off precedex : plan: PT and psych evals for determination of disposition. Broad [facility] referrals made as it appears pt is physically deconditioned and requiring physical assistance to transfer. Pt may transition to the medical floor today for continuation of care.
--- NOTE | 2024-06-29 10:31 | MHC.SLORD ---
Speech Language Pathology Order Status: Pt has resumed PO diet, RN consulted, no concerns with pt PO tolerance. Requested d/c for order, MD in agreement. RODBUSTER available to consult if indicated.
[2024-06-29] MEDS: clonazePAM 0.5 MG TABLET PO ×2 (10:42→20:29)
[2024-06-29] MEDS: Benzonatate 100 MG CAPSULE PO (10:42)
[2024-06-29 12:20] LABS: Glucose, Whole Blood 177 mg/dL (60-115)
[2024-06-29] MEDS: Insulin Lispro 100 UNIT/ML 3 ML VIAL SUBCUT (12:41)
--- NOTE | 2024-06-29 14:39 | PM.EVENT ---
Event Note Date of Service: 06/29/24 Event Note: Discussed with ICU attending. Patient transferred from ICU. Treated for severe alcohol withdrawal with IV Precedex, developed aspiration pneumonia and continued worsening agitation and intubated on 06/21 until 06/27. Patient now stable and ready to transfer to medical tele. Time Spent With Patient Time: Total time managing care of this patient today ____ minutes.
[2024-06-29 16:11] LABS: Glucose, Whole Blood 137 mg/dL (60-115)
[2024-06-29] MEDS: Enoxaparin Sodium 40 MG/0.4 ML SYRINGE SUBCUT (18:21)
[2024-06-29] MEDS: Tamsulosin HCL 0.4 MG CAPSULE 0.8 MG PO (20:29)
[2024-06-29] MEDS: Buprenorphine/Naloxone 8/2 mg FILM 2 FILM BUCCAL (20:31)
[2024-06-29 21:01] LABS: Glucose, Whole Blood 165 mg/dL (60-115)
[2024-06-30] MEDS: Acetaminophen 325 MG TABLET 650 MG PO ×2 (01:26→13:24)
[2024-06-30] MEDS: Ampicillin Sodium/Sulbactam Na 3 GM in 0.9 % Sodium Chloride 100 ML IV ×4 (03:01→21:55)
[2024-06-30] MEDS: traMADoL HCL 50 MG TABLET PO (03:12)
[2024-06-30 03:37] VITALS: BP 132/82; PULSE 101; RESP 17; TEMP 36.7; O2SAT 95
[2024-06-30 06:00] VITALS: BMI 33.9
[2024-06-30 07:33] LABS: Glucose, Whole Blood 132 mg/dL (60-115)
[2024-06-30 07:54] VITALS: BP 147/76; PULSE 96; RESP 18; TEMP 37.4; O2SAT 97
--- NOTE | 2024-06-30 08:53 | P.PNIM_ITS ---
Subjective Subjective Date of Service: 06/30/24 Interval History: seen and examined this morning Follow-up for alcohol withdrawal Patient awake alert Review of Systems unable to obtain review of systems Physical Exam 2 Vital Signs: Vital Signs: Last Vital Signs Temp 99.4 F 06/30/24 07:54 Pulse 96 06/30/24 07:54 Resp 18 06/30/24 07:54 BP 147/76 H 06/30/24 07:54 Pulse Ox 97 06/30/24 07:54 O2 Del Method Room Air 06/30/24 07:54 O2 Flow Rate 1 06/30/24 03:37 FiO2 40 06/27/24 11:26 Oxygen Flow Rate 4 06/16/24 12:00 BMI result Body Mass Index 33.9 Appearing in no acute distress lung sounds are clear to auscultation heart regular rate rhythm, clear S1, S2 positive bowel sounds, abdomen is soft, nontender neuro patient is alert x3, no focal deficits Objective Data Active Medications Acetaminophen (Acetaminophen 325 Mg Tablet) 650 mg PO Q6H PRN PRN Reason: Fever >100.4 Last Admin: 06/30/24 01:26 Dose: 650 mg Documented By: LEE Benzonatate (Benzonatate 100 Mg Capsule) 100 mg PO TID PRN PRN Reason: Cough Last Admin: 06/29/24 10:42 Dose: 100 mg Documented By: EDEN Buprenorphine/Naloxone (Buprenorphine/Naloxone 8/2 Mg Film) 2 film BUCCAL BEDTIME [facility] Last Admin: 06/29/24 20:31 Dose: 2 film Documented By: LEE Buspirone HCl (Buspirone Hcl 5 Mg Tablet) 5 mg PO BID [facility] Last Admin: 06/29/24 20:31 Dose: 5 mg Documented By: LEE Clonazepam (Clonazepam 0.5 Mg Tablet) 0.5 mg PO BID [facility] Last Admin: 06/29/24 20:29 Dose: 0.5 mg Documented By: LEE Enoxaparin Sodium (Enoxaparin Sodium 40 Mg/0.4 Ml Syringe) 40 mg SUBCUT Q24H [facility] Last Admin: 06/29/24 18:21 Dose: 40 mg Documented By: EDEN Finasteride (Finasteride 5 Mg Tablet) 5 mg PO DAILY [facility] Last Admin: 06/29/24 08:42 Dose: 5 mg Documented By: EDEN Ampicillin Sodium/Sulbactam (Sodium 3 gm/ Sodium Chloride) 100 mls @ 200 mls/hr IV Q6H [facility] Last Infusion: 06/30/24 03:52 Dose: Infused Documented By: LEE Insulin Human Lispro (Insulin Lispro 100 Unit/Ml 3 Ml Vial) 0 unit SUBCUT QIDACHS [facility]; Protocol Last Admin: 06/30/24 07:58 Dose: Not Given Documented By: GOLDEN Non-Admin Reason: No Insulin Coverage Lactulose (Lactulose 20 Gm/30 Ml Solution) 30 gm PO BID [facility] Last Admin: 06/29/24 21:30 Dose: Not Given Documented By: LEE Non-Admin Reason: Patient Refused Metoprolol Succinate (Metoprolol Succinate Er 25 Mg Tab.Er.24h) 25 mg PO DAILY [facility]; Protocol Last Admin: 06/29/24 08:41 Dose: 25 mg Documented By: EDEN Midazolam HCl (Midazolam Hcl 2 Mg/2 Ml Vial) 2 mg IVPUSH Q4H PRN PRN Reason: Alcohol Withdrawal Last Admin: 06/26/24 17:48 Dose: 2 mg Documented By: SENG Nicotine (Nicotine 21 Mg Patch.Td24) 21 mg TRANSDERMA DAILY [facility] Last Admin: 06/29/24 08:52 Dose: 21 mg Documented By: EDEN Ondansetron HCl (Ondansetron Hcl 4 Mg/2 Ml Vial) 4 mg IVPUSH Q8H PRN PRN Reason: Nausea and Vomiting Last Admin: 06/27/24 14:09 Dose: 4 mg Documented By: KAM Pharmacy Consult (Consult Rx Etoh Phenob Im/Po) 1 each MISCELLANE ONCE PRN; Protocol PRN Reason: Consult order Phenobarbital (Phenobarbital 30 Mg Tablet) 30 mg PO DAILY [facility]; Protocol Stop: 07/01/24 09:01 Sodium Chloride (0.9 % Sodium Chloride Flush 3 Ml Syringe) 3 ml IVFLUSH QSHIFT [facility] Last Admin: 06/29/24 23:52 Dose: 3 ml Documented By: LEE Tamsulosin HCl (Tamsulosin Hcl 0.4 Mg Capsule) 0.8 mg PO BEDTIME [facility] Last Admin: 06/29/24 20:29 Dose: 0.8 mg Documented By: LEE Labs 06/29/24 05:13 06/29/24 05:13 Labs: Laboratory Results - last 24 hr 06/29/24 06/29/24 06/29/24 12:14 16:06 20:57 POC Glucose 177 H 137 H 165 H 06/30/24 07:11 POC Glucose 132 H Assessment and Plan (1) MDD (major depressive disorder), recurrent episode, moderate: Status: Acute (2) Alcohol intoxication: Status: Acute Plan 63-year-old male with history of alcohol use disorder with history of alcohol withdrawal, alcohol withdrawal seizures and multiple admissions for alcohol withdrawal, opioid use disorder on Suboxone, history of aspiration, anxiety, depression, diabetes who presents to the emergency department acutely intoxicated seeking detox Mental health/anxiety discussed with psychiatric SHAKIRA>rec increase cymbalta to 120 mg daily, stop buspar and Klonopin, continue Gabapentin but schedule alcohol cessation important Toxic metabolic encephalopathy due to etoh withdrawal. slowly improving tx from ICU 07/03/24, s/p Precedex drip 06/16/24 RR called at 1100 for hypoxia and encephalopathy, stabilized after suctioning, normal blood gas, cxr neg for consolidation Monitor mental status closely Alcohol use disorder with alcohol withdrawal History of severe alcohol withdrawal in the past with history of alcohol withdrawal seizures and multiple admissions requiring ICU level care Thiamine, folate, magnesium aspiration, seizure precautions addiction medicine consult pending Continue phenobarbital DM2 SSI, POCs diabetic diet OUD continue suboxone ETOH Neuropathy gabapentin 200 gm TID BPH finasteride HTN metoprolol Smoker NRT Obesity class I. BMI 33.9 Discussed importance of weight management as this may be contributing to worsening of other comorbidities DVT ppx - lovenox Full code Quality Stroke Does the patient have a stroke diagnosis?: No VTE Prior VTE?: No VTE Risk Level:: Medical - low VTE Device Contraindication: N/A - Device Ordered VTE Drug Contraindication: N/A - Med Ordered
[2024-06-30] MEDS: Nicotine 21 MG PATCH.TD24 TRANSDERMA (09:11)
[2024-06-30] MEDS: 0.9 % Sodium Chloride Flush 3 ML SYRINGE IVFLUSH ×3 (09:11→21:58)
[2024-06-30] MEDS: Metoprolol Succinate ER 25 MG TAB.ER.24H PO (09:15)
[2024-06-30] MEDS: clonazePAM 0.5 MG TABLET PO (09:15)
[2024-06-30] MEDS: Finasteride 5 MG TABLET PO (09:16)
[2024-06-30] MEDS: PHENobarbitaL 30 MG TABLET PO (09:16)
[2024-06-30] MEDS: busPIRone HCl 5 MG TABLET PO (09:16)
--- NOTE | 2024-06-30 10:27 | P.CNPS_ITS ---
History of Present Illness Date of Service: 06/30/2024 Chief Complaint: Alcoholic withdrawl Reason for Consult: anxiety/depression Requesting physician: Nelia Yanes Discussed with referring provider: Yes Sources of Information: patient interviewed, chart reviewed and crisis/core team assessment reviewed HPI Narrative: Mr. Tavera is a 63 year-old male with hx of alcohol use, severe complication with alcohol withdrawal resulting in DTs/seizures, usually requires ICU admission for management of alcohol withdrawal, along with high doses of phenobarb and benzodiazepine. Psychiatry was asked to assess anxiety and depression. Pt seen in his room. He is lying comfortable, intermittent productive cough. Pt reports he feels better in term of his mood. He denies SI/HI. He reports feeling weak and on board to step down to STR. He is not sure what medications he is usually on for depression or anxiety and does ask this short story writer to speak with his sister as he reports she may be better historian. He reports he lives on his own with his dog and that his sister usually helps with rides to appointment. He does report some changes in memory and states that he is more forgetful. He is oriented to place, year but was somewhat confused about the month initially reporting it was March, later said it was July. This short story writer informed him that it is still June. He is noted to have an action tremor, more pronounced on left hand, probably at this point not related to withdrawal. [facility] Medical History (Updated 06/30/24 @ 10:37 by Josefina Farley NP) Diabetes Hypertension Alcohol use disorder, severe, dependence Alcohol abuse Hyperlipidemia Depression with anxiety Diagnostics Vital Signs (24Hr): Vital Signs - 24 hr 06/29/24 11:00 06/29/24 12:00 06/29/24 13:00 Temperature Pulse Rate 98 99 101 H Respiratory Rate 11 L 11 L 13 Blood Pressure 146/87 H 147/95 H 138/83 Pulse Oximetry 92 94 93 Oxygen Delivery Method Nasal Cannula Nasal Cannula Nasal Cannula Oxygen Flow Rate 1 1 1 06/29/24 14:00 06/29/24 15:00 06/29/24 15:48 Temperature 97.8 F Pulse Rate 116 H 100 96 Respiratory Rate 11 L 12 20 Blood Pressure 153/87 H 148/86 H 179/104 H Pulse Oximetry 92 96 97 Oxygen Delivery Method Nasal Cannula Nasal Cannula Nasal Cannula Oxygen Flow Rate 1 1 1 06/29/24 20:00 06/29/24 23:42 06/30/24 03:37 Temperature 97.7 F 97.7 F 98.0 F Pulse Rate 102 H 98 101 H Respiratory Rate 16 17 17 Blood Pressure 163/111 H 147/83 H 132/82 Pulse Oximetry 92 93 95 Oxygen Delivery Method Nasal Cannula Nasal Cannula Nasal Cannula Oxygen Flow Rate 1 1 1 06/30/24 07:54 Temperature 99.4 F Pulse Rate 96 Respiratory Rate 18 Blood Pressure 147/76 H Pulse Oximetry 97 Oxygen Delivery Method Room Air Oxygen Flow Rate BMI result Body Mass Index 33.9 Labs 06/29/24 05:13 06/29/24 05:13 Labs: Laboratory Results - last 48 hr 06/28/24 06/28/24 06/28/24 11:47 17:43 23:28 WBC RBC Hgb Hct MCV MCH MCHC RDW Plt Count MPV Immature Gran % (Auto) Neut % (Auto) Lymph % (Auto) [place] % (Auto) Eos % (Auto) Baso % (Auto) Lymph # (Auto) [place] # (Auto) Eos # (Auto) Baso # (Auto) Abs Immat Gran (auto) Absolute Neuts (auto) Absolute Nucleated RBC Nucleated RBC % (auto) VBG pH VBG pCO2 VBG pO2 VBG HCO3 VBG O2 Saturation VBG Base Excess Sodium Potassium Chloride Carbon Dioxide Anion Gap BUN Creatinine Estim Creat Clear Calc Estimated GFR POC Glucose 161 H 165 H 144 H Random Glucose Calcium Phosphorus Magnesium Total Bilirubin AST ALT Alkaline Phosphatase Total Protein Albumin 06/29/24 06/29/24 06/29/24 05:13 05:24 12:14 WBC 10.2 RBC 4.16 L Hgb 12.8 L Hct 38.4 L MCV 92.3 MCH 30.8 MCHC 33.3 RDW 12.9 Plt Count 483 H MPV 11.0 Immature Gran % (Auto) 0.4 Neut % (Auto) 57.4 Lymph % (Auto) 26.2 [place] % (Auto) 11.7 H Eos % (Auto) 3.3 Baso % (Auto) 1.0 Lymph # (Auto) 2.7 [place] # (Auto) 1.2 Eos # (Auto) 0.3 Baso # (Auto) 0.1 Abs Immat Gran (auto) 0.04 H Absolute Neuts (auto) 5.9 Absolute Nucleated RBC 0.000 Nucleated RBC % (auto) 0.0 VBG pH 7.54 H VBG pCO2 31 VBG pO2 42 VBG HCO3 27 H VBG O2 Saturation 78.0 VBG Base Excess 5.4 Sodium 144 Potassium 3.6 Chloride 108 Carbon Dioxide 26 Anion Gap 14 BUN 14 Creatinine 0.68 Estim Creat Clear Calc 129.1 Estimated GFR > 60 POC Glucose 177 H Random Glucose 126 H Calcium 9.6 Phosphorus 3.0 Magnesium 2.0 Total Bilirubin 0.4 AST 85 H ALT 126 H Alkaline Phosphatase 85 Total Protein 7.4 Albumin 3.8 06/29/24 06/29/24 06/30/24 16:06 20:57 07:11 WBC RBC Hgb Hct MCV MCH MCHC RDW Plt Count MPV Immature Gran % (Auto) Neut % (Auto) Lymph % (Auto) [place] % (Auto) Eos % (Auto) Baso % (Auto) Lymph # (Auto) [place] # (Auto) Eos # (Auto) Baso # (Auto) Abs Immat Gran (auto) Absolute Neuts (auto) Absolute Nucleated RBC Nucleated RBC % (auto) VBG pH VBG pCO2 VBG pO2 VBG HCO3 VBG O2 Saturation VBG Base Excess Sodium Potassium Chloride Carbon Dioxide Anion Gap BUN Creatinine Estim Creat Clear Calc Estimated GFR POC Glucose 137 H 165 H 132 H Random Glucose Calcium Phosphorus Magnesium Total Bilirubin AST ALT Alkaline Phosphatase Total Protein Albumin Imaging Radiology Impressions: ITS Impressions Chest X-Ray 06/12/24 13:45 IMPRESSION: No acute cardiopulmonary abnormality. Electronically signed by: Byron Larson MD 06/12/2024 02:02 PM EDT RP Chest CT 06/12/24 15:59 IMPRESSION: 1. Exam significantly degraded by motion artifact. Within these confines, no definite pneumonia or active pulmonary disease identified. No effusions. 2. Diffuse fatty infiltration of the liver. Cholecystectomy. 3. Ancillary findings as discussed. Electronically signed by: Adrian Lopez MD 06/12/2024 04:34 PM EDT RP Chest X-Ray 06/16/24 11:37 IMPRESSION: 1. Low lung volumes with bronchovascular crowding in both perihilar regions. Within these confines, no definite active pulmonary disease. Electronically signed by: Adrian Lopez MD 06/16/2024 12:40 PM EDT RP Mental Status Exam Mental Status Exam Narrative: Apearance: wearing hospital gown, MO, fair hygiene, in NAD Behavior: cooperative, friendly Psychomotor: action tremor, more visible on left hand than right hand Speech: clear, normal rate/rhythm/volume, spontaneous TP: mostly linear TC: looking forward to step down to STR Mood: better Affect: congruent, smiles at times SI: denies HI: denies VH/AH: none Delusions: none Insight/judgment: poor x 2. Memory/cog: alert, oriented to place, year, not month. recommend OP to complete MOCA. Medications Medications Current Medications Acetaminophen (Acetaminophen 325 Mg Tablet) 650 mg PO Q6H PRN PRN Reason: Fever >100.4 Last Admin: 06/30/24 01:26 Dose: 650 mg Benzonatate (Benzonatate 100 Mg Capsule) 100 mg PO TID PRN PRN Reason: Cough Last Admin: 06/29/24 10:42 Dose: 100 mg Buprenorphine/Naloxone (Buprenorphine/Naloxone 8/2 Mg Film) 2 film BUCCAL BEDTIME [facility] Last Admin: 06/29/24 20:31 Dose: 2 film Buspirone HCl (Buspirone Hcl 5 Mg Tablet) 5 mg PO BID [facility] Last Admin: 06/30/24 09:16 Dose: 5 mg Clonazepam (Clonazepam 0.5 Mg Tablet) 0.5 mg PO BID [facility] Last Admin: 06/30/24 09:15 Dose: 0.5 mg Enoxaparin Sodium (Enoxaparin Sodium 40 Mg/0.4 Ml Syringe) 40 mg SUBCUT Q24H [facility] Last Admin: 06/29/24 18:21 Dose: 40 mg Finasteride (Finasteride 5 Mg Tablet) 5 mg PO DAILY [facility] Last Admin: 06/30/24 09:16 Dose: 5 mg Ampicillin Sodium/Sulbactam (Sodium 3 gm/ Sodium Chloride) 100 mls @ 200 mls/hr IV Q6H [facility] Last Admin: 06/30/24 09:09 Dose: 200 mls/hr Insulin Human Lispro (Insulin Lispro 100 Unit/Ml 3 Ml Vial) 0 unit SUBCUT QIDACHS [facility]; Protocol Last Admin: 06/30/24 07:58 Dose: Not Given Lactulose (Lactulose 20 Gm/30 Ml Solution) 30 gm PO BID [facility] Last Admin: 06/29/24 21:30 Dose: Not Given Metoprolol Succinate (Metoprolol Succinate Er 25 Mg Tab.Er.24h) 25 mg PO DAILY [facility]; Protocol Last Admin: 06/30/24 09:15 Dose: 25 mg Midazolam HCl (Midazolam Hcl 2 Mg/2 Ml Vial) 2 mg IVPUSH Q4H PRN PRN Reason: Alcohol Withdrawal Last Admin: 06/26/24 17:48 Dose: 2 mg Nicotine (Nicotine 21 Mg Patch.Td24) 21 mg TRANSDERMA DAILY [facility] Last Admin: 06/30/24 09:11 Dose: 21 mg Ondansetron HCl (Ondansetron Hcl 4 Mg/2 Ml Vial) 4 mg IVPUSH Q8H PRN PRN Reason: Nausea and Vomiting Last Admin: 06/27/24 14:09 Dose: 4 mg Pharmacy Consult (Consult Rx Etoh Phenob Im/Po) 1 each MISCELLANE ONCE PRN; Protocol PRN Reason: Consult order Phenobarbital (Phenobarbital 30 Mg Tablet) 30 mg PO DAILY [facility]; Protocol Stop: 07/01/24 09:01 Last Admin: 06/30/24 09:16 Dose: 30 mg Sodium Chloride (0.9 % Sodium Chloride Flush 3 Ml Syringe) 3 ml IVFLUSH QSHIFT [facility] Last Admin: 06/30/24 09:11 Dose: 3 ml Tamsulosin HCl (Tamsulosin Hcl 0.4 Mg Capsule) 0.8 mg PO BEDTIME [facility] Last Admin: 06/29/24 20:29 Dose: 0.8 mg Allergies Allergies Allergy/AdvReac Type Severity Reaction Status Date / Time No Known Allergies Allergy Verified 06/12/24 13:15 Assessment & Plan Assessment & Plan (1) MDD (major depressive disorder), recurrent episode, moderate: Status: Acute Code(s): F33.1 - Major depressive disorder, recurrent, moderate (2) GALLO (generalized anxiety disorder): Status: Acute Code(s): F41.1 - Generalized anxiety disorder Plan Mr. Tavera is a 63 year-old male with hx of alcohol use disorder, depression who was admitted for complications of alcohol withdrawal requiring ICU admission. Psychiatry asked to assess pt zhao depression and anxiety and make medication recommendation. He is being stepped down to STR most likely tomorrow. He is connected with [facility] for services. We discussed risks, benefits and alternative treatment options. discussed that starting new medications without subsequent follow up to assess whether it is helpful or not is not ideal. We can recommend to increase cymbalta to 120mg daily to address depression. He currently denies SI/HI. Recommend to continue schedule gabapentin 300mg po TID. Do not recommend continuing clonazepam or any other benzos started during hospital stay, given concerns of ongoing alcohol use in addition to benzodiazepine prescription. PLAN 1. Increase cymbalta from 90mg po daily to 120mg po daily 2. schedule gabapentin 300mg po TID 3. continue thiamine 100mg po daily 4. Recommend assessment of memory/cog outpatient. 5. Addiction medicine to follow up with patient today as well to discuss MAT Total time managing care of this patient today ____ minutes.
--- NOTE | 2024-06-30 11:23 | MHC.CM.PN ---
CM met with pt. to ask which STR is his preference. He said he does not have a preference. He has [facility] ins, and [facility] is following.
[2024-06-30 11:27] LABS: Glucose, Whole Blood 152 mg/dL (60-115)
[2024-06-30 11:42] VITALS: BP 145/90; PULSE 100; RESP 18; TEMP 36.6; O2SAT 94
[2024-06-30] MEDS: Insulin Lispro 100 UNIT/ML 3 ML VIAL SUBCUT ×2 (11:50→17:41)
[2024-06-30] MEDS: DULoxetine HCl 60 MG CAPSULE.DR 120 MG PO (12:00)
--- NOTE | 2024-06-30 13:08 | HO.ADDICTPRO ---
Subjective Subjective Date of Service: 06/30/24 Reason For Visit: Alcoholic withdrawl Interim History: Patient seen in follow up for prolonged alcohol withdrawal, with DTs requiring ICU level of care. Withdrawal sx have resolved, and patient is now alert, and oriented (unaware of date) Patient seen in room 485. He is awake, alert, pleasant and engaged in interview Tearful at times, when talking about how his alcohol use has impacted his family. Discussed treatment history--he reports numerous admissions to [facility], most recent one about a year ago. Denies any trials with medications for alcohol use disorder. Denies any formal recovery supports---mutual aid groups Discussed health issues and current medical admission and challenges with ongoing alcohol use Patient verbalizing concern for how he will be able to care for himself once discharged--limited insight with regards to AUD and complexities with managing it at home I have no desire to drink anymore, I am done with this . T/W expert medical writer gently challenged patient's statements and encouraged him to consider a plan to meet this goal of not drinking. Review of Systems Constitutional: Reports as per HPI, Reports malaise and Reports weakness Reports weakness Mental Status Exam Mental Status Exam Patient Orientation: Person, Place and Situation Level of Consciousness: Awake and Appropriate Patient Behavior: Appropriate and Talkative Mood Description: Anxious Affect Description: Anxious Speech Pattern: Clear Diagnostics Vital Signs (24Hr): Vital Signs - 24 hr 06/29/24 14:00 06/29/24 15:00 06/29/24 15:48 Temperature 97.8 F Pulse Rate 116 H 100 96 Respiratory Rate 11 L 12 20 Blood Pressure 153/87 H 148/86 H 179/104 H Pulse Oximetry 92 96 97 Oxygen Delivery Method Nasal Cannula Nasal Cannula Nasal Cannula Oxygen Flow Rate 1 1 1 06/29/24 20:00 06/29/24 23:42 06/30/24 03:37 Temperature 97.7 F 97.7 F 98.0 F Pulse Rate 102 H 98 101 H Respiratory Rate 16 17 17 Blood Pressure 163/111 H 147/83 H 132/82 Pulse Oximetry 92 93 95 Oxygen Delivery Method Nasal Cannula Nasal Cannula Nasal Cannula Oxygen Flow Rate 1 1 1 06/30/24 07:54 06/30/24 11:42 Temperature 99.4 F 97.9 F Pulse Rate 96 100 Respiratory Rate 18 18 Blood Pressure 147/76 H 145/90 H Pulse Oximetry 97 94 Oxygen Delivery Method Room Air Nasal Cannula Oxygen Flow Rate 1 BMI result Body Mass Index 33.9 Labs 06/29/24 05:13 06/29/24 05:13 Labs: Laboratory Results - last 48 hr 06/28/24 06/28/24 06/29/24 17:43 23:28 05:13 WBC 10.2 RBC 4.16 L Hgb 12.8 L Hct 38.4 L MCV 92.3 MCH 30.8 MCHC 33.3 RDW 12.9 Plt Count 483 H MPV 11.0 Immature Gran % (Auto) 0.4 Neut % (Auto) 57.4 Lymph % (Auto) 26.2 Bee % (Auto) 11.7 H Eos % (Auto) 3.3 Baso % (Auto) 1.0 Lymph # (Auto) 2.7 Bee # (Auto) 1.2 Eos # (Auto) 0.3 Baso # (Auto) 0.1 Abs Immat Gran (auto) 0.04 H Absolute Neuts (auto) 5.9 Absolute Nucleated RBC 0.000 Nucleated RBC % (auto) 0.0 VBG pH VBG pCO2 VBG pO2 VBG HCO3 VBG O2 Saturation VBG Base Excess Sodium 144 Potassium 3.6 Chloride 108 Carbon Dioxide 26 Anion Gap 14 BUN 14 Creatinine 0.68 Estim Creat Clear Calc 129.1 Estimated GFR > 60 POC Glucose 165 H 144 H Random Glucose 126 H Calcium 9.6 Phosphorus 3.0 Magnesium 2.0 Total Bilirubin 0.4 AST 85 H ALT 126 H Alkaline Phosphatase 85 Total Protein 7.4 Albumin 3.8 06/29/24 06/29/24 06/29/24 05:24 12:14 16:06 WBC RBC Hgb Hct MCV MCH MCHC RDW Plt Count MPV Immature Gran % (Auto) Neut % (Auto) Lymph % (Auto) [place] % (Auto) Eos % (Auto) Baso % (Auto) Lymph # (Auto) Bee # (Auto) Eos # (Auto) Baso # (Auto) Abs Immat Gran (auto) Absolute Neuts (auto) Absolute Nucleated RBC Nucleated RBC % (auto) VBG pH 7.54 H VBG pCO2 31 VBG pO2 42 VBG HCO3 27 H VBG O2 Saturation 78.0 VBG Base Excess 5.4 Sodium Potassium Chloride Carbon Dioxide Anion Gap BUN Creatinine Estim Creat Clear Calc Estimated GFR POC Glucose 177 H 137 H Random Glucose Calcium Phosphorus Magnesium Total Bilirubin AST ALT Alkaline Phosphatase Total Protein Albumin 06/29/24 06/30/24 06/30/24 20:57 07:11 11:19 WBC RBC Hgb Hct MCV MCH MCHC RDW Plt Count MPV Immature Gran % (Auto) Neut % (Auto) Lymph % (Auto) Bee % (Auto) Eos % (Auto) Baso % (Auto) Lymph # (Auto) Bee # (Auto) Eos # (Auto) Baso # (Auto) Abs Immat Gran (auto) Absolute Neuts (auto) Absolute Nucleated RBC Nucleated RBC % (auto) VBG pH VBG pCO2 VBG pO2 VBG HCO3 VBG O2 Saturation VBG Base Excess Sodium Potassium Chloride Carbon Dioxide Anion Gap BUN Creatinine Estim Creat Clear Calc Estimated GFR POC Glucose 165 H 132 H 152 H Random Glucose Calcium Phosphorus Magnesium Total Bilirubin AST ALT Alkaline Phosphatase Total Protein Albumin Imaging Radiology Impressions: ITS Impressions Chest X-Ray 06/12/24 13:45 IMPRESSION: No acute cardiopulmonary abnormality. Electronically signed by: Byron Larson MD 06/12/2024 02:02 PM EDT RP Chest CT 06/12/24 15:59 IMPRESSION: 1. Exam significantly degraded by motion artifact. Within these confines, no definite pneumonia or active pulmonary disease identified. No effusions. 2. Diffuse fatty infiltration of the liver. Cholecystectomy. 3. Ancillary findings as discussed. Electronically signed by: Adrian Lopez MD 06/12/2024 04:34 PM EDT RP Chest X-Ray 06/16/24 11:37 IMPRESSION: 1. Low lung volumes with bronchovascular crowding in both perihilar regions. Within these confines, no definite active pulmonary disease. Electronically signed by: Adrian Lopez MD 06/16/2024 12:40 PM EDT RP Medications Medications Current Medications Acetaminophen (Acetaminophen 325 Mg Tablet) 650 mg PO Q6H PRN PRN Reason: Fever >100.4 Last Admin: 06/30/24 01:26 Dose: 650 mg Atorvastatin Calcium (Atorvastatin Calcium 10 Mg Tablet) 10 mg PO BEDTIME [facility] Benzonatate (Benzonatate 100 Mg Capsule) 100 mg PO TID PRN PRN Reason: Cough Last Admin: 06/29/24 10:42 Dose: 100 mg Buprenorphine/Naloxone (Buprenorphine/Naloxone 8/2 Mg Film) 2 film BUCCAL BEDTIME [facility] Last Admin: 06/29/24 20:31 Dose: 2 film Duloxetine HCl (Duloxetine Hcl 60 Mg Capsule.Dr) 120 mg PO DAILY [facility] Enoxaparin Sodium (Enoxaparin Sodium 40 Mg/0.4 Ml Syringe) 40 mg SUBCUT Q24H [facility] Last Admin: 06/29/24 18:21 Dose: 40 mg Finasteride (Finasteride 5 Mg Tablet) 5 mg PO DAILY [facility] Last Admin: 06/30/24 09:16 Dose: 5 mg Gabapentin (Gabapentin 100 Mg Capsule) 200 mg PO TID [facility] Ampicillin Sodium/Sulbactam (Sodium 3 gm/ Sodium Chloride) 100 mls @ 200 mls/hr IV Q6H [facility] Last Infusion: 06/30/24 09:39 Dose: Infused Insulin Human Lispro (Insulin Lispro 100 Unit/Ml 3 Ml Vial) 0 unit SUBCUT QIDACHS [facility]; Protocol Last Admin: 06/30/24 11:50 Dose: 2 unit Lactulose (Lactulose 20 Gm/30 Ml Solution) 30 gm PO BID [facility] Last Admin: 06/30/24 10:29 Dose: Not Given Metoprolol Succinate (Metoprolol Succinate Er 25 Mg Tab.Er.24h) 25 mg PO DAILY [facility]; Protocol Last Admin: 06/30/24 09:15 Dose: 25 mg Midazolam HCl (Midazolam Hcl 2 Mg/2 Ml Vial) 2 mg IVPUSH Q4H PRN PRN Reason: Alcohol Withdrawal Last Admin: 06/26/24 17:48 Dose: 2 mg Nicotine (Nicotine 21 Mg Patch.Td24) 21 mg TRANSDERMA DAILY [facility] Last Admin: 06/30/24 09:11 Dose: 21 mg Ondansetron HCl (Ondansetron Hcl 4 Mg/2 Ml Vial) 4 mg IVPUSH Q8H PRN PRN Reason: Nausea and Vomiting Last Admin: 06/27/24 14:09 Dose: 4 mg Pharmacy Consult (Consult Rx Etoh Phenob Im/Po) 1 each MISCELLANE ONCE PRN; Protocol PRN Reason: Consult order Phenobarbital (Phenobarbital 30 Mg Tablet) 30 mg PO DAILY [facility]; Protocol Stop: 07/01/24 09:01 Last Admin: 06/30/24 09:16 Dose: 30 mg Sodium Chloride (0.9 % Sodium Chloride Flush 3 Ml Syringe) 3 ml IVFLUSH QSHIFT [facility] Last Admin: 06/30/24 09:11 Dose: 3 ml Tamsulosin HCl (Tamsulosin Hcl 0.4 Mg Capsule) 0.8 mg PO BEDTIME [facility] Last Admin: 06/29/24 20:29 Dose: 0.8 mg Trazodone HCl (Trazodone Hcl 100 Mg Tablet) 200 mg PO BEDTIME PRN PRN Reason: Insomnia Allergies Allergies Allergy/AdvReac Type Severity Reaction Status Date / Time No Known Allergies Allergy Verified 06/12/24 13:15 Assessment & Plan Assessment & Plan (1) Alcohol use disorder, severe, dependence: Status: Acute Code(s): F10.20 - Alcohol dependence, uncomplicated Assessment and Plan: patient open to FRANCOIS ---Acamprosate TID millinery teacher to follow up in AM with medication information [facility] Total time managing care of this patient today _35___ minutes.
[2024-06-30] MEDS: Gabapentin 100 MG CAPSULE 200 MG PO ×2 (15:25→21:57)
[2024-06-30 15:59] VITALS: BP 170/97; PULSE 83; RESP 18; TEMP 36.9; O2SAT 92
[2024-06-30 16:48] LABS: Glucose, Whole Blood 159 mg/dL (60-115)
[2024-06-30] MEDS: Enoxaparin Sodium 40 MG/0.4 ML SYRINGE SUBCUT (17:42)
[2024-06-30 20:00] VITALS: BP 164/92; PULSE 86; RESP 16; TEMP 36.4; O2SAT 96
[2024-06-30 21:05] LABS: Glucose, Whole Blood 138 mg/dL (60-115)
[2024-06-30] MEDS: Buprenorphine/Naloxone 8/2 mg FILM 2 FILM BUCCAL (21:56)
[2024-06-30] MEDS: Lactulose 20 GM/30 ML SOLUTION 30 GM PO (21:56)
[2024-06-30] MEDS: Atorvastatin Calcium 10 MG TABLET PO (21:57)
[2024-06-30] MEDS: Tamsulosin HCL 0.4 MG CAPSULE 0.8 MG PO (21:57)
[2024-07-01] VITALS (7 sets, daily range): BP systolic 128–180; BP diastolic 77–94; PULSE 80–90; RESP 16–18; TEMP 36.2–36.9; O2SAT 91–95; BMI 33.2
[2024-07-01] MEDS: Ampicillin Sodium/Sulbactam Na 3 GM in 0.9 % Sodium Chloride 100 ML IV (04:00)
[2024-07-01] MEDS: Acetaminophen 325 MG TABLET 650 MG PO (04:04)
[2024-07-01 07:41] LABS: Glucose, Whole Blood 124 mg/dL (60-115)
[2024-07-01] MEDS: Metoprolol Succinate ER 25 MG TAB.ER.24H PO (10:41)
[2024-07-01] MEDS: PHENobarbitaL 30 MG TABLET PO (10:41)
[2024-07-01] MEDS: DULoxetine HCl 60 MG CAPSULE.DR 120 MG PO (10:41)
[2024-07-01] MEDS: Acamprosate Calcium 333 MG TABLET.DR PO ×3 (10:41→20:41)
[2024-07-01] MEDS: Gabapentin 100 MG CAPSULE 200 MG PO ×3 (10:41→20:41)
[2024-07-01] MEDS: Amoxicillin/Potassium Clav 875 MG TABLET PO ×2 (10:41→21:45)
[2024-07-01] MEDS: Butalb/Acetamin/Caff 50/325/40 TABLET 1 TAB PO (10:42)
[2024-07-01] MEDS: Finasteride 5 MG TABLET PO (10:42)
[2024-07-01] MEDS: Nicotine 21 MG PATCH.TD24 TRANSDERMA (10:42)
[2024-07-01] MEDS: 0.9 % Sodium Chloride Flush 3 ML SYRINGE IVFLUSH ×3 (10:49→20:40)
--- NOTE | 2024-07-01 10:59 | MHC.RECOVRN ---
Met with pt in 353 to follow up and provide support and also to bring education on FRANCOIS Pt awake, alert, easily engages in conversation, sitting on the edge of his bed. He reports that his sister will be picking him up today to take him to a [place] rehab in [place].? Pt verbalizes some excitement about trying something new to better his health. T/W educated pt. on campral, FRANCOIS which he choose and is starting today. Pt denies other concerns at this time.? T/w available as needed.
--- NOTE | 2024-07-01 11:06 | MHC.RECOVRN ---
Met with pt in - to follow up and provide support and also to bring education on FRANCOIS Pt awake, alert, easily engages in conversation, sitting on the edge of his bed. He reports that his sister will be picking him up today to take him to a [place] rehab in [place].? Pt verbalizes some excitement about trying something new to better his health. T/W educated pt. on campral, FRANCOIS which he choose and is starting today. Pt denies other concerns at this time.? T/w available as needed.
[2024-07-01 11:30] LABS: Glucose, Whole Blood 153 mg/dL (60-115)
[2024-07-01] MEDS: ondansetron HCL 4 MG/2 ML VIAL IVPUSH (12:18)
--- NOTE | 2024-07-01 12:40 | P.PNIM_ITS ---
Subjective Subjective Date of Service: 07/01/24 Interval History: c/o frontal STERLING; otherwise feeling well without agitation or anxiety; mild cough; on 1L O2 Review of Systems Review of Systems: Yes all other systems are reviewed and are negative Physical Exam 2 Vital Signs: Vital Signs: Last Vital Signs Temp 98.1 F 07/01/24 11:03 Pulse 88 07/01/24 11:03 Resp 17 07/01/24 11:03 BP 128/77 07/01/24 11:03 Pulse Ox 95 07/01/24 11:03 O2 Del Method Nasal Cannula 07/01/24 11:03 O2 Flow Rate 1 07/01/24 11:03 FiO2 40 06/27/24 11:26 Oxygen Flow Rate 4 06/16/24 12:00 BMI result Body Mass Index 33.2 Gen: in no acute distress HEENT: sclera anicteric, moist mucus membranes Neck: supple Lungs: clear to auscultation bilaterally Heart: regular rate and rhythm, no murmurs Abd: soft, non-tender, non-distended Ext: no edema Skin: warm/well-perfused Neuro: alert and oriented x3, no focal findings Psych: appropriate affect Objective Data Active Medications Acamprosate (Acamprosate Calcium 333 Mg Tablet.) 333 mg PO TID [facility] Last Admin: 07/01/24 10:41 Dose: 333 mg Documented By: KRISTIAN Acetaminophen (Acetaminophen 325 Mg Tablet) 650 mg PO Q6H PRN PRN Reason: Fever >100.4 Last Admin: 07/01/24 04:04 Dose: 650 mg Documented By: EDILMA Amoxicillin/Clavulanate Potassium (Amoxicillin/Potassium Clav 875 Mg Tablet) 875 mg PO Q12H [facility] Last Admin: 07/01/24 10:41 Dose: 875 mg Documented By: KRISTIAN Atorvastatin Calcium (Atorvastatin Calcium 10 Mg Tablet) 10 mg PO BEDTIME [facility] Last Admin: 06/30/24 21:57 Dose: 10 mg Documented By: EDILMA Benzonatate (Benzonatate 100 Mg Capsule) 100 mg PO TID PRN PRN Reason: Cough Last Admin: 06/29/24 10:42 Dose: 100 mg Documented By: EDEN Buprenorphine/Naloxone (Buprenorphine/Naloxone 8/2 Mg Film) 2 film BUCCAL BEDTIME [facility] Last Admin: 06/30/24 21:56 Dose: 2 film Documented By: EDILMA Duloxetine HCl (Duloxetine Hcl 60 Mg Capsule.Dr) 120 mg PO DAILY [facility] Last Admin: 07/01/24 10:41 Dose: 120 mg Documented By: KRISTIAN Enoxaparin Sodium (Enoxaparin Sodium 40 Mg/0.4 Ml Syringe) 40 mg SUBCUT Q24H [facility] Last Admin: 06/30/24 17:42 Dose: 40 mg Documented By: GOLDEN Finasteride (Finasteride 5 Mg Tablet) 5 mg PO DAILY [facility] Last Admin: 07/01/24 10:42 Dose: 5 mg Documented By: KRISTIAN Gabapentin (Gabapentin 100 Mg Capsule) 200 mg PO TID [facility] Last Admin: 07/01/24 10:41 Dose: 200 mg Documented By: KRISTIAN Insulin Human Lispro (Insulin Lispro 100 Unit/Ml 3 Ml Vial) 0 unit SUBCUT QIDACHS [facility]; Protocol Last Admin: 07/01/24 12:13 Dose: Not Given Documented By: GOLDEN Non-Admin Reason: Patient Refused Lactulose (Lactulose 20 Gm/30 Ml Solution) 30 gm PO BID [facility] Last Admin: 07/01/24 10:42 Dose: Not Given Documented By: KRISTIAN Non-Admin Reason: Patient Refused Metoprolol Succinate (Metoprolol Succinate Er 25 Mg Tab.Er.24h) 25 mg PO DAILY [facility]; Protocol Last Admin: 07/01/24 10:41 Dose: 25 mg Documented By: KRISTIAN Midazolam HCl (Midazolam Hcl 2 Mg/2 Ml Vial) 2 mg IVPUSH Q4H PRN PRN Reason: Alcohol Withdrawal Last Admin: 06/26/24 17:48 Dose: 2 mg Documented By: SENG Nicotine (Nicotine 21 Mg Patch.Td24) 21 mg TRANSDERMA DAILY [facility] Last Admin: 07/01/24 10:42 Dose: 21 mg Documented By: KRISTIAN Ondansetron HCl (Ondansetron Hcl 4 Mg/2 Ml Vial) 4 mg IVPUSH Q8H PRN PRN Reason: Nausea and Vomiting Last Admin: 07/01/24 12:18 Dose: 4 mg Documented By: GOLDEN Oxycodone HCl (Oxycodone Hcl Immed Release 5 Mg Tablet) 5 mg PO Q12H PRN PRN Reason: Pain, Severe (Pain Scale 7-10) Pharmacy Consult (Consult Rx Etoh Phenob Im/Po) 1 each MISCELLANE ONCE PRN; Protocol PRN Reason: Consult order Sodium Chloride (0.9 % Sodium Chloride Flush 3 Ml Syringe) 3 ml IVFLUSH QSHIFT [facility] Last Admin: 07/01/24 10:49 Dose: 3 ml Documented By: KRISTIAN Tamsulosin HCl (Tamsulosin Hcl 0.4 Mg Capsule) 0.8 mg PO BEDTIME [facility] Last Admin: 06/30/24 21:57 Dose: 0.8 mg Documented By: EDILMA Trazodone HCl (Trazodone Hcl 100 Mg Tablet) 200 mg PO BEDTIME PRN PRN Reason: Insomnia Labs 06/29/24 05:13 06/29/24 05:13 Labs: Laboratory Results - last 24 hr 06/30/24 06/30/24 07/01/24 16:43 21:00 07:35 POC Glucose 159 H 138 H 124 H 07/01/24 11:24 POC Glucose 153 H Microbiology Microbiology Results: Microbiology 06/25/24 20:09 Blood Culture - Final Blood - Venous No growth after 5 days. 06/25/24 20:09 Blood Culture - Final Blood - Venous No growth after 5 days. Assessment and Plan (1) MDD (major depressive disorder), recurrent episode, moderate: Status: Acute (2) Alcohol intoxication: Status: Acute Plan d20 63-year-old male with history of alcohol use disorder with history of alcohol withdrawal, alcohol withdrawal seizures and multiple admissions for alcohol withdrawal, opioid use disorder on Suboxone, history of aspiration, anxiety, depression, diabetes who presented to the emergency department acutely intoxicated seeking detoxification and was transferred to the ICU 06/18/24 for excessive agitation requiring sedative drips; intubated 06/25/24 for airway protection; extubated 06/27/24; stepped down to telemetry 06/29/24 substance-induced mood disorder - per Psychiatry python consultant, stopped buspirone + clonazepam; changed gabapentin to scheduled, increased duloxetine toxic metabolic encephalopathy due to alcohol withdrawal - s/p dexmetetomidine drip, completing phenobarbital taper today AUD with withdrawal - continue thiamine, folate, magnesium - Addiction Medicine consulted, started acamprosate aspiration PNA - complete 7d of antibiotics tomorrow; change ampicillin-sulbactam to amoxicillin-clavulanate OUD - continue Suboxone EtOH neuropathy - gabapentin BPH - finasteride, tamsulosin HLD - statin HTN - metoprolol succinate tobacco abuse - NRT VTE ppx - enoxaparin dispo - STR In my clinical judgment, the patient requires continued inpatient hospitalization for the following reasons: placement Total time managing care of this patient today: 45 minutes. Quality Stroke Does the patient have a stroke diagnosis?: No VTE Prior VTE?: No VTE Risk Level:: Medical - low VTE Device Contraindication: N/A - Device Ordered VTE Drug Contraindication: N/A - Med Ordered
--- NOTE | 2024-07-01 15:40 | MHC.CM.PN ---
Pt has been medically cleared for DC, he has been accepted at [facility] for STR, [facility], awaiting response.
[2024-07-01 16:09] LABS: Glucose, Whole Blood 133 mg/dL (60-115)
[2024-07-01] MEDS: Enoxaparin Sodium 40 MG/0.4 ML SYRINGE SUBCUT (17:37)
[2024-07-01 20:39] LABS: Glucose, Whole Blood 154 mg/dL (60-115)
[2024-07-01] MEDS: Atorvastatin Calcium 10 MG TABLET PO (20:41)
[2024-07-01] MEDS: Insulin Lispro 100 UNIT/ML 3 ML VIAL SUBCUT (20:41)
[2024-07-01] MEDS: Tamsulosin HCL 0.4 MG CAPSULE 0.8 MG PO (20:41)
[2024-07-01] MEDS: Buprenorphine/Naloxone 8/2 mg FILM 2 FILM BUCCAL (20:42)
[2024-07-01] MEDS: Lactulose 20 GM/30 ML SOLUTION 30 GM PO (20:42)
[2024-07-02 03:37] VITALS: BP 131/87; PULSE 79; RESP 18; TEMP 36.8; O2SAT 92
[2024-07-02 06:00] VITALS: BMI 33.5
[2024-07-02 07:48] LABS: Glucose, Whole Blood 107 mg/dL (60-115)
[2024-07-02 08:00] VITALS: BP 132/86; PULSE 91; RESP 18; TEMP 36.7; O2SAT 93
[2024-07-02] MEDS: Lactulose 20 GM/30 ML SOLUTION 30 GM PO (10:24)
[2024-07-02 10:25] VITALS: BP 144/80; PULSE 79
[2024-07-02] MEDS: Gabapentin 100 MG CAPSULE 200 MG PO (10:25)
[2024-07-02] MEDS: Acetaminophen 325 MG TABLET 650 MG PO (10:25)
[2024-07-02] MEDS: Acamprosate Calcium 333 MG TABLET.DR PO (10:25)
[2024-07-02] MEDS: Finasteride 5 MG TABLET PO (10:25)
[2024-07-02] MEDS: DULoxetine HCl 60 MG CAPSULE.DR 120 MG PO (10:25)
[2024-07-02] MEDS: Metoprolol Succinate ER 25 MG TAB.ER.24H PO (10:25)
[2024-07-02] MEDS: Amoxicillin/Potassium Clav 875 MG TABLET PO (10:25)
[2024-07-02] MEDS: Nicotine 21 MG PATCH.TD24 TRANSDERMA (10:28)
[2024-07-02] MEDS: 0.9 % Sodium Chloride Flush 3 ML SYRINGE IVFLUSH (10:28)
[2024-07-02 11:14] LABS: Glucose, Whole Blood 131 mg/dL (60-115)
[2024-07-02] MEDS: Butalb/Acetamin/Caff 50/325/40 TABLET 1 TAB PO (11:41)
[2024-07-02 11:51] VITALS: BP 147/85; PULSE 80; RESP 16; TEMP 36.8; O2SAT 91
--- NOTE | 2024-07-02 14:03 | MHC.CM.PN ---
Pt has been medically cleared for DC, he will go to [facility] today via BLS set up by MD.
--- NOTE | 2024-07-02 14:39 | P.DS_ITS ---
DS: Providers Provider Date of Service: 07/02/24 Date of admission: 06/12/24 16:49 Date of discharge: 07/02/24 Primary care physician: Estela Gupta MD Consults: 06/16/24 15:43 Addiction Medicine Provider Routine Consulting Provider: Addiction Covering Reason for consultation: etoh and withdrawal 06/29/24 16:07 Consult to Psychiatry Routine Consulting Provider: [facility] Psych Covering Reason for consultation: severe anxiety, ? depression 06/30/24 13:04 Inpt - Recovery Team Routine Comment: Reason for consultation: MEREDITH eval BI DS: Diagnosis Discharge Diagnosis (1) MDD (major depressive disorder), recurrent episode, moderate: Status: Acute (2) Alcohol intoxication: Status: Acute (3) Alcohol use disorder, severe, dependence: Status: Acute (4) Delirium tremens: Status: Acute (5) Aspiration pneumonia: Status: Resolved (6) Toxic metabolic encephalopathy: Status: Acute DS: Summary Hospital Course Hospital Course: From the history and physical by the admitting certified procedural coder Sage Flower MD, 06/12/24: 63-year-old male with past medical history of chronic alcoholism with history of severe alcohol withdrawal and alcohol withdrawal seizures with multiple admissions in the past ear for alcohol withdrawal syndromes was brought in to the ED by his sister after he was confused drink due to drinking a lot of alcohol. His alcohol levels are 320 but the patient is saying he is already in withdrawal and has some shakes. So MICU was consulted for admission 63-year-old male with history of alcohol use disorder with history of alcohol withdrawal, alcohol withdrawal seizures and multiple admissions for alcohol withdrawal, opioid use disorder on Suboxone, history of aspiration, anxiety, depression, and diabetes who presented to the emergency department acutely intoxicated seeking detoxification and was transferred to the ICU 06/18/24 for excessive agitation requiring sedative drips; intubated 06/25/24 for airway protection; extubated 06/27/24; stepped down to telemetry 06/29/24. Hospital course by problem: substance-induced mood disorder - per Psychiatry pre owned sales consultant, stopped buspirone + clonazepam; changed gabapentin to scheduled, increased duloxetine toxic metabolic encephalopathy due to alcohol withdrawal - s/p dexmetetomidine drip, completed phenobarbital taper on 07/01/24 AUD with withdrawal - continue thiamine, folate, magnesium - Addiction Medicine consulted, started acamprosate; should follow up with them after discharge from rehab aspiration PNA - completed 7d of antibiotics [ampicillin-sulbactam to amoxicillin-clavulanate] on 07/02/24 He was discharged to [facility] for short-term physical rehabilitation. Time Attestation Discharge Coordination Time (in mins): 35 Quality: Safe Use of Opioids Does Pt have an Active Cancer Diagnosis on the Problem List?: No Quality: Stroke Does the patient have a stroke diagnosis?: No Physical Exam Vital Signs: Vital Signs: Last Vital Signs Temp 98.3 F 07/02/24 11:51 Pulse 80 07/02/24 11:51 Resp 16 07/02/24 11:51 BP 147/85 H 07/02/24 11:51 Pulse Ox 91 L 07/02/24 11:51 O2 Del Method Room Air 07/02/24 11:51 O2 Flow Rate 1 07/01/24 11:03 FiO2 40 06/27/24 11:26 Oxygen Flow Rate 4 06/16/24 12:00 BMI result Body Mass Index 33.5 Gen: in no acute distress HEENT: sclera anicteric, moist mucus membranes Neck: supple Lungs: clear to auscultation bilaterally Heart: regular rate and rhythm, no murmurs Abd: soft, non-tender, non-distended Ext: no edema Skin: warm/well-perfused Neuro: alert and oriented x3, no focal findings Psych: appropriate affect DS: Data Data Completed and Pending Completed studies during hospitalization [Text1]: Laboratory Results WBC 10.2 X10*3/uL (4.8-10.8) 06/29/24 05:13 RBC 4.16 X10*6/uL (4.60-5.80) L 06/29/24 05:13 Hgb 12.8 g/dl (14.0-18.0) L 06/29/24 05:13 Hct 38.4 % (42.0-52.0) L 06/29/24 05:13 MCV 92.3 fL (80.0-98.0) 06/29/24 05:13 MCH 30.8 pg (27.0-33.0) 06/29/24 05:13 MCHC 33.3 g/dl (31.0-36.0) 06/29/24 05:13 RDW 12.9 % (11.0-16.0) 06/29/24 05:13 Plt Count 483 X10*3/uL (160-400) H 06/29/24 05:13 MPV 11.0 fL (9.4-12.4) 06/29/24 05:13 Immature Gran % (Auto) 0.4 % (0.0-0.4) 06/29/24 05:13 Neut % (Auto) 57.4 % (45-73) 06/29/24 05:13 Lymph % (Auto) 26.2 % (20-40) 06/29/24 05:13 [place] % (Auto) 11.7 % (2-11) H 06/29/24 05:13 Eos % (Auto) 3.3 % (0-4) 06/29/24 05:13 Baso % (Auto) 1.0 % (0-2) 06/29/24 05:13 Lymph # (Auto) 2.7 X10*3/uL (1.2-4.9) 06/29/24 05:13 [place] # (Auto) 1.2 X10*3/uL (0.1-1.2) 06/29/24 05:13 Eos # (Auto) 0.3 X10*3/uL (0.0-0.4) 06/29/24 05:13 Baso # (Auto) 0.1 X10*3/uL (0.0-0.2) 06/29/24 05:13 Abs Immat Gran (auto) 0.04 X10*3/uL (0.00-0.03) H 06/29/24 05:13 Absolute Neuts (auto) 5.9 x10*3/uL (2.0-8.3) 06/29/24 05:13 Absolute Nucleated RBC 0.000 X10*3/uL (0.0-0.012) 06/29/24 05:13 Nucleated RBC % (auto) 0.0 /100WBC (0.0-0.2) 06/29/24 05:13 Smear Tech's Comments VERIFIED 06/27/24 04:42 Hold Purple Top SEE NOTE 06/18/24 11:56 O2 Saturation 94.0 % 06/26/24 05:21 ABG pH at Pt Temp 7.42 (7.35-7.45) 06/26/24 05:21 ABG pCO2 at Pt Temp 40 mmHg (32-45) 06/26/24 05:21 ABG pO2 at Pt Temp 68 mmHg (83-108) L 06/26/24 05:21 ABG HCO3 27 mmol/L (22-26) H 06/26/24 05:21 ABG Base Excess (Actual) 2.6 mmol/L 06/26/24 05:21 VBG pH 7.54 (7.32-7.43) H 06/29/24 05:24 VBG pCO2 31 mmHg 06/29/24 05:24 VBG pO2 42 mmHg 06/29/24 05:24 VBG HCO3 27 mmol/L (22-26) H 06/29/24 05:24 VBG O2 Saturation 78.0 % 06/29/24 05:24 VBG Base Excess 5.4 mmol/L 06/29/24 05:24 Sodium 144 mmol/L (135-145) 06/29/24 05:13 Potassium 3.6 mmol/L (3.3-5.1) 06/29/24 05:13 Chloride 108 mmol/L (96-108) 06/29/24 05:13 Carbon Dioxide 26 mmol/L (22-29) 06/29/24 05:13 Anion Gap 14 (12-20) 06/29/24 05:13 BUN 14 mg/dL (9-16) 06/29/24 05:13 Creatinine 0.68 mg/dL (0.5-1.4) 06/29/24 05:13 Estim Creat Clear Calc 129.1 06/29/24 05:13 Estimated GFR > 60 06/29/24 05:13 POC Glucose 131 mg/dL (60-115) H 07/02/24 11:10 Random Glucose 126 mg/dL (60-115) H 06/29/24 05:13 Lactic Acid 1.9 mmol/L (0.5-2.0) 06/25/24 20:09 Lactic Acid F/U @ 2Hr 6.0 mmol/L (0.5-2.0) H* 06/12/24 19:41 Lactic Acid F/U @ 4Hr 4.0 mmol/L (0.5-2.0) H* 06/12/24 22:08 Calcium 9.6 mg/dL (8.4-10.2) 06/29/24 05:13 Phosphorus 3.0 mg/dL (2.7-4.5) 06/29/24 05:13 Magnesium 2.0 mg/dL (1.6-2.6) 06/29/24 05:13 Total Bilirubin 0.4 mg/dL (0.0-1.0) 06/29/24 05:13 AST 85 U/L (5-37) H 06/29/24 05:13 ALT 126 U/L (0-40) H 06/29/24 05:13 Alkaline Phosphatase 85 U/L (39-117) 06/29/24 05:13 Ammonia 48 umol/L (13-55) 06/18/24 11:55 Total Protein 7.4 g/dL (6.5-8.0) 06/29/24 05:13 Albumin 3.8 g/dL (3.5-5.0) 06/29/24 05:13 Urine Color Yellow 06/12/24 18:57 Urine Appearance Clear 06/12/24 18:57 Urine pH 5.5 (5.0-9.0) 06/12/24 18:57 Ur Specific [place] >= 1.030 (1.005-1.025) H 06/12/24 18:57 Urine Protein 30 (1+) mg/dL (Neg-Trace) H 06/12/24 18:57 Urine Glucose (UA) Negative mg/dL (Negative) 06/12/24 18:57 Urine Ketones 15 mg/dL (Negative) 06/12/24 18:57 Urine Blood Trace (Negative) H 06/12/24 18:57 Urine Nitrite Negative (Negative) 06/12/24 18:57 Ur Leukocyte Esterase Negative (Negative) 06/12/24 18:57 Urine RBC 0-2 /HPF (0-2) 06/12/24 18:57 Urine WBC 0-5 /HPF (0-5) 06/12/24 18:57 Ur Squamous Epith Cells 0-2 /HPF (0-2) 06/12/24 18:57 Urine Bacteria None Seen (None Seen) 06/12/24 18:57 Hyaline Casts 0-2 /LPF (0-2) 06/12/24 18:57 Salicylates < 5.0 mg/dL (15-30) L 06/12/24 14:03 Urine Opiates Screen Not Detected (Not Detect) 06/12/24 18:57 Ur Buprenorphine Scrn Positive ng/mL (Not Detect) H 06/12/24 18:57 Ur Oxycodone Screen Not Detected ng/mL (Not Detect) 06/12/24 18:57 Urine Methadone Screen Not Detected ng/mL (Not Detect) 06/12/24 18:57 Urine Fentanyl Screen Not Detected (Not Detect) 06/12/24 18:57 Acetaminophen < 3 mcg/mL (<30) 06/12/24 14:03 Ur Barbiturates Screen POSITIVE (Not Detect) H 06/12/24 18:57 Ur Phencyclidine Scrn Not Detected (Not Detect) 06/12/24 18:57 Ur Amphetamines Screen Not Detected (Not Detect) 06/12/24 18:57 U Benzodiazepines Scrn Not Detected (Not Detect) 06/12/24 18:57 Urine Cocaine Screen Not Detected (Not Detect) 06/12/24 18:57 U Marijuana (THC) Screen POSITIVE (Not Detect) H 06/12/24 18:57 Ethyl Alcohol 327 mg/dL H* 06/12/24 14:03 Influenza Type A (PCR) NEGATIVE (Negative) 06/12/24 13:28 Influenza Type B (PCR) NEGATIVE (Negative) 06/12/24 13:28 RSV RNA Qual (PCR) NEGATIVE (Negative) 06/12/24 13:28 SARS-CoV-2 RNA (RT-PCR) NEGATIVE (Negative) 06/12/24 13:[address] 06/12/24 15:59 IMPRESSION: 1. Exam significantly degraded by motion artifact. Within these confines, no definite pneumonia or active pulmonary disease identified. No effusions. 2. Diffuse fatty infiltration of the liver. Cholecystectomy. 3. Ancillary findings as discussed. Electronically signed by: Adrian Lopez MD 06/12/2024 04:34 PM EDT Discharge Plan Discharge Anticipated Discharge Date/Time: 07/02/24 14:13 Patient Disposition: Xfer SNF Discharge Diagnosis: alcohol withdrawal syndrome alcohol use disorder Referrals: Estela Gupta MD [Primary Care Provider] - 1 Week Discharge Medications: New nicotine 21 mg/24 hr Patch 24 Hour 21 mg transdermal DAILY Qty: 30 0RF gabapentin 100 mg Capsule 200 mg PO TID Qty: 180 0RF acamprosate 333 mg Tablet,Delayed Release (Dr/Ec) 333 mg PO TID Qty: 90 0RF duloxetine 60 mg Capsule,Delayed Release(Dr/Ec) 120 mg PO DAILY Qty: 60 0RF Continued buspirone 5 mg Tablet 5 mg PO BID atorvastatin 20 mg Tablet 10 mg PO BEDTIME tamsulosin 0.4 mg Capsule 0.8 mg PO BEDTIME trazodone 100 mg Tablet 200 mg PO BEDTIME PRN (Reason: Insomnia) metformin 1,000 mg Tablet 1,000 mg PO DAILY finasteride 5 mg Tablet 5 mg PO DAILY melatonin 5 mg Tablet 5 mg PO BEDTIME buprenorphine-naloxone [Suboxone] 8-2 mg Film 2 film BUCCAL DAILY cyclobenzaprine 10 mg Tablet 10 mg PO TID PRN (Reason: Muscle Spasm) vitamin B complex Tablet 1 tab PO Q48H testosterone 1.62 % (20.25 mg/1.25 gram) Gel In Packet 2 packet TRANSDERMAL DAILY Rx Instructions: apply 20.25 mg /1 packet to max area of EACH upper arm and shoulder sennosides [senna] 8.6 mg Tablet 17.2 mg PO DAILY metoprolol succinate 25 mg Tablet Extended Release 24 Hr 25 mg PO BEDTIME polyethylene glycol 3350 17 gram/dose Powder 17 g PO DAILY tadalafil 20 mg Tablet 20 mg PO Q3D PRN (Reason: Erectile Dysfunction) Rx Instructions: administer approximately 30min before sexual activity; do not use more than 1 dose per 72hrs cholecalciferol (vitamin D3) [Vitamin D3] 50 mcg (2,000 unit) Tablet 50 mcg PO DAILY magnesium oxide 400 mg magnesium Tablet 400 mg PO DAILY carboxymethylcellulose sodium 0.5 % Drops 1 drp OPHTHALMIC (EYE) QID psyllium Powder 1 tsp PO DAILY PRN (Reason: Constipation) Rx Instructions: mix into at least 8 oz water or juice before administering latanoprost 0.005 % Drops 1 drp OPHTHALMIC (EYE) BEDTIME Discontinued hydroxyzine HCl 25 mg Tablet 25 mg PO BEDTIME PRN (Reason: Anxiety) gabapentin 300 mg Capsule 300 mg PO TID PRN (Reason: Pain) duloxetine 30 mg Capsule,Delayed Release(Dr/Ec) 30 mg PO DAILY Rx Instructions: IN ADDITION TO 60 MG FOR TDD 90 MG duloxetine 60 mg Capsule,Delayed Release(Dr/Ec) 60 mg PO DAILY Rx Instructions: IN ADDITION TO 30 MG FOR TDD 90 MG Discharge Orders: Discharge Order (Routine); Ordered 07/02/24 Ordered By: David Robles Diet: Advance to usual diet Activity on Discharge: As tolerated Stand Alone Forms: Patient Portal Discharge page Print Language: Arabic Care Plan Goals: sobriety Health Concerns: alcohol withdrawal syndrome alcohol use disorder Plan of Treatment: take acamprosate as prescribed follow up with with [facility], [address] [place] [id number] [phone], upon discharge from rehabilitation Please follow up with your primary care doctor within 1 week of discharge from rehabilitation. Return to the hospital if you experience recurrent or worsening symptoms. Assessment: See Discharge Summary.
== END 2024-07-02 14:58 | disposition skilled nursing facility (03) | DRG 896 ==
LOC: HO.ED 15:31 → HO.EDOVER 16:55 → HO.ICU 17:15 → HO.IMC 06-15 11:03 → HO.ICU 06-18 13:38 → HO.IMC 06-29 14:04
PROVIDERS: Internal Medicine Pulmonary Disease; Nurse Practitioner Acute Care; Physician Assistant; Physician Assistant Medical; Registered Nurse Community Health; Admitting Provider Internal Medicine Critical Care Medicine; Emergency Provider Emergency Medicine; PCP Internal Medicine; Visit Provider Family Medicine
DX: F10.231 Alcohol dependence with withdrawal delirium (principal); G92.8 Other toxic encephalopathy; J69.0 Pneumonitis due to inhalation of food and vomit; J96.01 Acute respiratory failure with hypoxia; F11.20 Opioid dependence, uncomplicated; F33.1 Major depressive disorder, recurrent, moderate; F10.229 Alcohol dependence with intoxication, unspecified; Z20.822 Contact with and (suspected) exposure to COVID-19; Y90.8 Blood alcohol level of 240 mg/100 ml or more; Z87.891 Personal history of nicotine dependence; E78.5 Hyperlipidemia, unspecified; E66.811 Obesity, class 1; Z71.3 Dietary counseling and surveillance; E11.9 Type 2 diabetes mellitus without complications; I95.2 Hypotension due to drugs; T42.75XA Adverse effect of unspecified antiepileptic and sedative-hypnotic drugs, initial encounter; F19.94 Other psychoactive substance use, unspecified with psychoactive substance-induced mood disorder; N40.0 Benign prostatic hyperplasia without lower urinary tract symptoms; Z68.33 Body mass index [BMI] 33.0-33.9, adult; G62.1 Alcoholic polyneuropathy; F41.1 Generalized anxiety disorder; K70.9 Alcoholic liver disease, unspecified; I10 Essential (primary) hypertension; E83.39 Other disorders of phosphorus metabolism; Z79.84 Long term (current) use of oral hypoglycemic drugs; Z79.899 Other long term (current) drug therapy
CPT/HCPCS: 0241U; 36415; 36600; 71045; 71260; 80048; 80053; 80143; 80179; 80307; 81001; 81003; 82040; 82140; 82803; 82947; 83605; 83735; 84100; 85025; 85027; 87040; 93005; 94002; 94003; 94799; 97116; 97162; 97530; 99285; J0131; J0295; J0456; J0696; J1650; J1920; J2060; J2250; J2405; J2470; J2560; J2704; J3010; J3360; J3411; J3475; J7120; P9047; Q9967; S9485

== ENCOUNTER → 2024-06-12 13:17 | Outpatient (BNV) | payer OTHER, SELFPAY | PROVIDERS: Emergency Provider Emergency Medicine; Visit Provider Radiology Diagnostic Radiology | DX: R06.02 Shortness of breath (principal) | CPT/HCPCS: 71045; 71260 ==

== ENCOUNTER 2024-06-12 16:49 | Outpatient (BNV) | payer OTHER, SELFPAY | END 2024-06-25 19:45 | PROVIDERS: Admitting Provider Internal Medicine Critical Care Medicine; Emergency Provider Emergency Medicine; PCP Internal Medicine; Visit Provider Nuclear Medicine | DX: Z93.1 Gastrostomy status (principal) | CPT/HCPCS: 71045 ==

== ENCOUNTER 2024-06-12 16:49 | Outpatient (BNV) | payer OTHER, SELFPAY | END 2024-06-16 11:48 | PROVIDERS: Admitting Provider Internal Medicine Critical Care Medicine; Emergency Provider Emergency Medicine; PCP Internal Medicine; Visit Provider Internal Medicine | DX: I49.9 Cardiac arrhythmia, unspecified (principal); R09.02 Hypoxemia | CPT/HCPCS: 93010 ==

== ENCOUNTER 2024-06-12 16:49 | Outpatient (BNV) | payer OTHER, SELFPAY | END 2024-06-16 11:37 | PROVIDERS: Admitting Provider Internal Medicine Critical Care Medicine; Emergency Provider Emergency Medicine; PCP Internal Medicine; Visit Provider Radiology Diagnostic Radiology | DX: J98.4 Other disorders of lung (principal) | CPT/HCPCS: 71045 ==

== ENCOUNTER 2024-06-12 16:49 | Outpatient (BNV) | payer OTHER, SELFPAY | END 2024-06-21 06:52 | PROVIDERS: Admitting Provider Internal Medicine Critical Care Medicine; Emergency Provider Emergency Medicine; PCP Internal Medicine; Visit Provider Specialist | DX: Z46.59 Encounter for fitting and adjustment of other gastrointestinal appliance and device (principal) | CPT/HCPCS: 71045 ==

== ENCOUNTER → 2024-06-12 16:49 | Outpatient (BNV) | payer OTHER, SELFPAY | PROVIDERS: Admitting Provider Internal Medicine Critical Care Medicine; Emergency Provider Emergency Medicine; PCP Internal Medicine; Visit Provider Nurse Practitioner Acute Care | DX: F10.939 Alcohol use, unspecified with withdrawal, unspecified (principal) | CPT/HCPCS: 99232; 99233; 99499 ==

== ENCOUNTER → 2024-06-12 16:49 | Outpatient (BNV) | payer OTHER, SELFPAY | PROVIDERS: Admitting Provider Internal Medicine Critical Care Medicine; Emergency Provider Emergency Medicine; PCP Internal Medicine; Visit Provider Internal Medicine Pulmonary Disease | DX: F10.931 Alcohol use, unspecified with withdrawal delirium (principal); E11.9 Type 2 diabetes mellitus without complications; I10 Essential (primary) hypertension | CPT/HCPCS: 99232; 99233; 99499 ==

== ENCOUNTER → 2024-06-12 16:49 | Outpatient (BNV) | payer OTHER, SELFPAY | PROVIDERS: Admitting Provider Internal Medicine Critical Care Medicine; Emergency Provider Emergency Medicine; Visit Provider Internal Medicine Critical Care Medicine | DX: F10.929 Alcohol use, unspecified with intoxication, unspecified (principal); R11.2 Nausea with vomiting, unspecified; R09.02 Hypoxemia | CPT/HCPCS: 99223; 99291 ==

== ENCOUNTER → 2024-06-12 16:49 | Outpatient (BNV) | payer OTHER, SELFPAY | PROVIDERS: Admitting Provider Internal Medicine Critical Care Medicine; Emergency Provider Emergency Medicine; PCP Internal Medicine; Visit Provider Nurse Practitioner Psychiatric/Mental Health | DX: F10.931 Alcohol use, unspecified with withdrawal delirium (principal) | CPT/HCPCS: 99222 ==